=== PATIENT | female | born 1945 | race Caucasian/White ===

== ENCOUNTER → 2017-09-26 14:33 | Outpatient (CLI) | payer MEDICARE, SELFPAY ==
[2017-09-26 16:25] LABS: Absolute Lymphocyte Count 2.09 X10^3/ul (0.83-4.51); Absolute Neutrophil Count 3.3 X10^3/uL (2.0-7.7); Basophil# 0.03 X10^3/uL; Basophil% 0.5 % (0-1); Eosinophil# 0.07 X10^3/uL; Eosinophils% 1.2 % (0-5); Hematocrit 43.6 % (37-47); Hemoglobin 13.8 g/dl (12.0-15.0); Lymphocyte # 2.09 X10^3/ul (4.0); Lymphocyte % 35.6 % (19-41); Mean Corp Hgb Conc 31.7 g/gl (32-36); Mean Corpuscular Hgb 28.5 pg (27.0-32.0); Mean Corpuscular Volume 90.1 fL (81-99); Mean Platelet Vol. 10.2 fl (6.2-12.0); Monocyte# 0.37 X10^3/uL; Monocyte% 6.3 % (0-10); Neutrophil # 3.31 X10^3/uL (2.7-7.7); Neutrophil % 56.4 % (47-70); Platelet Count 276 K/mm3 (150-450); RBC Distribution Width CV 13.6 % (11.6-14.6); RBC Distribution Width SD 44.7 fl (35.1-43.9); Red Blood Count 4.84 M/mm3 (4.2-5.4); White Blood Count 5.9 K/mm3 (4.4-11.0)
[2017-09-26 16:27] LABS: POSITIVE COUNT NO; POSITIVE DIFFERENTIAL NO; POSITIVE MORPHOLOGY NO
[2017-09-26 16:45] LABS: ALB/GLOB Ratio 0.9 RATIO (0.9-2.4); AST(SGOT) 25 U/L (15-37); Alanine Aminotransfer ALT/SGPT 38 U/L (13-56); Albumin, Serum 3.5 g/dL (3.2-5.0); Alkaline Phosphatase 117 U/L (45-117); Anion Gap 8 (5-15); BUN 9 mg/dL (7-18); BUN/Creat Ratio 10.5 RATIO (10-20); Calcium,Total 9.1 mg/dL (8.5-10.1); Chloride 109 mmol/L (98-107); Creatinine, Serum 0.86 mg/dL (0.55-1.02); EST Glomerular Filtration Rate 69 mL/min (>60); Est Glom Filt Rate - Afr Amer 83 mL/min (>60); Globulin 3.9 g/dL (2.2-4.2); Glucose 87 mg/dL (74-106); Potassium 3.7 mmol/L (3.5-5.1); Protein, Total 7.4 g/dL (6.4-8.2); Sodium Level 142 mmol/L (136-145); Thyroid Stim Hormone (TSH) 0.27 uIU/mL (0.358-3.74)
[2017-09-26 16:49] LABS: Vitamin D,25 Hydroxy 13.9 ng/mL (29.95-100.01)
[2017-09-27 14:31] LABS: T3 Uptake 36 % (30-39)
[2017-09-28 10:11] LABS: Hep C Antibodies <0.1 s/co ratio (0.0-0.9)
== END ==
PROVIDERS: Family Provider Family Medicine Geriatric Medicine; PCP Family Medicine Geriatric Medicine; Visit Provider Family Medicine Geriatric Medicine
DX: E03.9 Hypothyroidism, unspecified (principal); E55.9 Vitamin D deficiency, unspecified; R53.83 Other fatigue; Z13.89 Encounter for screening for other disorder
CPT/HCPCS: 36415; 80053; 82306; 84439; 84443; 84479; 85025; 86803

== ENCOUNTER → 2017-12-20 11:38 | Outpatient (CLI) | payer MEDICARE, SELFPAY | PROVIDERS: Family Provider Family Medicine Geriatric Medicine; PCP Family Medicine Geriatric Medicine; Visit Provider Family Medicine Geriatric Medicine | DX: E05.90 Thyrotoxicosis, unspecified without thyrotoxic crisis or storm (principal) | CPT/HCPCS: 36415; 84443 ==

== ENCOUNTER → 2017-12-27 10:16 | Outpatient (CLI) | payer MEDICARE, SELFPAY ==
--- NOTE | 2017-12-27 10:19 | BI_ITS ---
MAMMOGRAPHY - BILATERAL SCREENING 3-D OLVIN SYNTHESIS REASON FOR EXAM: Female, 72 years old. Bilateral Screening 3-D tomosynthesis PERTINENT HISTORY: Asymptomatic. Right breast mole removal 30 years ago with scar. Left hemangioma, smooth. Family breast carcinoma, mother age 60 and sister age 40. TECHNIQUE: 2-D mammograms and 3-D Olvin synthesis of the breast (s) were performed. CAD was performed. COMPARISON: 08/31/2016 FINDINGS: The breast composition is composed of scattered fibroglandular density. Right CC view shows posterior third medial asymmetric density with ill-defined irregular margins. Right MLO view suggests heterogeneous asymmetric density posterior to middle third superiorly. Asymmetric densities are electronically circled in the right CC and MLO projections for which spot compression views are recommended with possible ultrasound as clinically indicated. Scattered benign appearing calcifications are again seen. No new suspicious microcalcification cluster, adenopathy, skin thickening or nipple retraction identified. BI/SCREENING MAMM (CAD), BILAT IMPRESSION: Incomplete mammogram, additional imaging recommended right breast as described. ASSESSMENT CATEGORY: BIRADS Category 0: Incomplete. Need additional imaging evaluation as above. A letter regarding these results will be sent to the patient by the facility within 30 days. FOLLOW UP RECOMMENDATION: Additional imaging recommended as above. (E) Negative mammographic results should not deter biopsy as a palpable lesion if present should be followed on clinical grounds and biopsy performed if clinically persistent for 3 months or increasing size. Approximately 10% of breast cancers are not detected by mammography. A normal mammogram should not delay biopsy of a clinically suspicious abnormality. Dense breast tissue mainstream neoplasm. Electronically Signed: Darinel Burrows, at 19:42 EDT Tel , Service support ,
--- NOTE | 2017-12-27 10:23 | BD_ITS ---
STUDY: DUAL ENERGY X-RAY ABSORPTIOMETRY / DXA REASON FOR EXAM: Female, 72 years old. Rule out osteoporosis TECHNIQUE: Bone Mineral Density (BMD) measurements of lumbar spine and bilateral hips were obtained. COMPARISON: None. FINDINGS: Lumbar Spine (L1-L4): g/cm2 (0.9) / T-score (-2.5) / Z-score (-0.8) Findings are suggestive of osteopenia with a moderate fracture risk. Left Femur Total: g/cm2 (0.62) / T-score (-3.1) / Z-score (-1.5) Left Femoral Neck: g/cm2 (0.6) / T-score (-3.1) / Z-score (-1.3) Right Femur Total: g/cm2 (0.6) / T-score (-3) / Z-score (-1.5) Right Femoral Neck: g/cm2 (0.6) / T-score (-3.2) / Z-score (-1.4) BD/Dexa Bone Density Study IMPRESSION: The patient is considered osteoporosis as outlined below according to World [employer] Organization (WHO) criteria with a high fracture risk. There has been no change of bone density since the previous examination. Reference Information: The T-score is the number of standard deviations above or below the standard which is normal for young adults at their peak bone mineral density. The World Health Organization (WHO) interprets the T-scores as follows: Above -1 Normal bone density Between -1 and -2.5 Osteopenia Equal to / or below -2.5 Osteoporosis As a practical clinical guideline, osteopenia may be graded as follows: Mild -1 through -1.5 Moderate -1.6 through -2.0 Severe -2.1 through -2.4 The Z-score is the number of standard deviations above or below age-matched controls. A Z-score of less than -1.5 would be considered abnormal. References: 1. NIH Osteoporosis and Related Bone Diseases http://www.osteo.org 2. International Society for Clinical Densitometry http://www.iscd.org 3. National Osteoporosis Foundation http://www.nof.org Electronically Signed: Coy Griggs DO at 10:13 EDT Tel , Service support ,
== END ==
PROVIDERS: Family Provider Family Medicine Geriatric Medicine; PCP Family Medicine Geriatric Medicine; Visit Provider Family Medicine Geriatric Medicine
DX: Z12.31 Encounter for screening mammogram for malignant neoplasm of breast (principal); Z78.0 Asymptomatic menopausal state
CPT/HCPCS: 77063; 77067; 77080

== ENCOUNTER → 2018-01-02 09:30 | Outpatient (CLI) | payer MEDICARE, SELFPAY ==
--- NOTE | 2018-01-02 09:33 | BI_ITS ---
MAMMOGRAPHY - UNILATERAL DIAGNOSTIC: RIGHT BREAST REASON FOR EXAM: Female, 72 years old. Abnormal screening mammogram. PERTINENT HISTORY: Sister with breast cancer. Mother with breast cancer. TECHNIQUE: Compression spot views of the right breast in the MLO and craniocaudad views were obtained. CAD: Full Field Digital Mammography with Computer Added Detection was performed. COMPARISON: Comparison is made with prior mammogram dated December 27, 2017. FINDINGS: Breast Composition: There are scattered areas of fibroglandular density. There are no dominant masses or suspicious calcifications. No abnormality is seen. No other significant abnormalities are identified. BI/DIAG MAMM W/CAD, UNILAT IMPRESSION: Stable unilateral diagnostic mammogram. One year follow-up mammogram recommended. (A) ASSESSMENT CATEGORY: BIRADS Category 2: Benign. A letter regarding these results will be sent to the patient by the facility within 30 days. Approximately 10% of breast cancers are not detected by mammography. A normal mammogram should not delay biopsy of a clinically suspicious abnormality. Electronically Signed: John Winn MD at 15:34 EDT Tel [phone], Service support ,
== END ==
PROVIDERS: Family Provider Family Medicine Geriatric Medicine; PCP Family Medicine Geriatric Medicine; Visit Provider Family Medicine Geriatric Medicine
DX: R92.8 Other abnormal and inconclusive findings on diagnostic imaging of breast (principal); Z80.3 Family history of malignant neoplasm of breast
CPT/HCPCS: 77065

== ENCOUNTER → 2018-02-13 11:30 | Outpatient (CLI) | payer MEDICARE, SELFPAY ==
[2018-02-13 13:24] LABS: Thyroid Stim Hormone (TSH) 2.36 uIU/mL (0.358-3.74)
== END ==
PROVIDERS: Family Provider Family Medicine Geriatric Medicine; PCP Family Medicine Geriatric Medicine; Visit Provider Family Medicine Geriatric Medicine
DX: E05.90 Thyrotoxicosis, unspecified without thyrotoxic crisis or storm (principal)
CPT/HCPCS: 36415; 84443

== ENCOUNTER → 2018-04-12 10:32 | Outpatient (CLI) | payer MEDICARE, SELFPAY ==
[2018-04-12 13:04] LABS: Thyroid Stim Hormone (TSH) 0.59 uIU/mL (0.358-3.74)
--- OUTSIDE RECORDS SUMMARY | 2018-06-14 07:51 | XMS RPT_ITS ---
:1945 Author Organization [facility] Care Team Providers Name Role Phone Mega, Lucio Chi Attending Unavailable Mega, Lucio Chi Primary Care Unavailable Mega, Lucio Chi Attending Unavailable Mega, Lucio Chi Primary Care Unavailable Mega, Lucio Chi Attending Unavailable Mega, Lucio Chi Primary Care Unavailable Mega, Lucio Chi Attending Unavailable Mega, Lucio Chi Primary Care Unavailable Mega, Lucio Chi Attending Unavailable Mega, Lucio Chi Primary Care Unavailable Mega, Lucio Chi Attending Unavailable Mega, Lucio Chi Primary Care Unavailable PROBLEMS PROBLEMS DATE TYPE CONDITION / CODE ATTENDING STATUS SOURCE 02/13/2018 Unknown E03.9 - Mega, Lucio Chi Active [place] Hypothyroidism, Community unspecified / Hospital E03.9(ICD-10) Repository 12/27/2017 Unknown Z12.31 - Encounter Mega, Lucio Chi Active [place] for screening Community mammogram for Hospital malignant neoplasm Repository of breast / Z12.31(ICD-10) 12/27/2017 Unknown N95.9 - Unspecified Mega, Lucio Chi Active [place] menopausal and Community perimenopausal Hospital disorder / Repository N95.9(ICD-10) 12/20/2017 Unknown E05.90 - Mega, Lucio Chi Active [place] Thyrotoxicosis, Community unspecified without Hospital thyrotoxic crisis or Repository storm / E05.90(ICD-10) PROCEDURES PROCEDURES No Procedure Records FoundRESULTS RESULTS THYROID STIM HORMONE Collected: 04/12/2018 Status: F Source: [place] ([place]) 10:[place] [facility] [place] CODE TESTS RESULT OUT OF RANGE REFERENCE UNITS LAB L501.9520 0.358-3.74 uIU/mL Normal TSH 0.59 Performed By: #### L501.9520 #### [place] [facility] [address] [place], [address] PROGRESS Observed: 03/24/2018 Status: COMPLETED Source: [place] 3:08 PM [facility] REPOSITORY HNO ID: [id number] Author: Lanette Callejas) [place] Service: (none) Author Type: Physician Campus Coordinator Type: Progress Notes Filed: 03/24/2018 3:31 PM Note Text: Subjective HPI HPI Nicole Huggins is a 72 year old female who presents today for CC of chest congestion, cough, and PND x >1wk. Notes that she had fevers and body aches initially. Has taken mucinex which has helped to break up the cough somewhat. I just still feel sick. BP 136/84 Pulse 78 Temp 36.8 ?C (98.2 ?F) (Left Tympanic) Resp 16 Wt 72.4 kg (159 lb 9.6 oz) SpO2 95% ALLERGIES Allergen Reactions - Seasonal Allergies Other: See Comments Sneeze, cough, watey eyes There is no problem list on file for this patient. No family history on file. Social History Marital status: Spouse name: Years of education: Number of children: Social History Main Topics Smoking status: Never Smoker Smokeless tobacco: Never Used Review of Systems Constitutional: Positive for chills and malaise/fatigue. Negative for fever. HENT: Positive for ear pain (Pain moreso behind ears), sinus pain and sore throat. Negative for congestion. Respiratory: Positive for cough and sputum production (Greenish during the AM, yellowish by PM). Negative for shortness of breath and wheezing. Cardiovascular: Negative for chest pain. Neurological: Negative for headaches. Objective Physical Exam Constitutional: She is oriented to person, place, and time and well-developed, well-nourished, and in no distress. Vital signs are normal. HENT: Head: Normocephalic. Right Ear: Tympanic membrane, external ear and ear canal normal. No drainage. Tympanic membrane is not perforated, not erythematous, not retracted and not bulging. No middle ear effusion. Left Ear: Ear canal normal. No drainage. Tympanic membrane is not perforated, not erythematous, not retracted and not bulging. No middle ear effusion. Nose: No rhinorrhea. Right sinus exhibits no maxillary sinus tenderness and no frontal sinus tenderness. Left sinus exhibits no maxillary sinus tenderness and no frontal sinus tenderness. Mouth/Throat: Uvula is midline and mucous membranes are normal. No oropharyngeal exudate, posterior oropharyngeal edema, posterior oropharyngeal erythema or tonsillar abscesses. Purulent PND noted posteriorly Eyes: Conjunctivae and lids are normal. Cardiovascular: Normal rate, regular rhythm, S1 normal and S2 normal. Exam reveals no friction rub. Pulmonary/Chest: Effort normal and breath sounds normal. She has no wheezes. She has no rhonchi. She has no rales. Lymphadenopathy: Head (right side): No submental, no submandibular, no tonsillar, no preauricular, no posterior auricular and no occipital adenopathy present. Head (left side): No submental, no submandibular, no tonsillar, no preauricular, no posterior auricular and no occipital adenopathy present. Right cervical: No superficial cervical and no posterior cervical adenopathy present. Left cervical: No superficial cervical and no posterior cervical adenopathy present. Neurological: She is oriented to person, place, and time. ASSESSMENT/PLAN: 1. Acute sinusitis, recurrence not specified, unspecified location - ICD9: 461.9, ICD10: J01.90 (primary diagnosis) - Rx for Augmentin; Discussed medication indications, proper use, and potential adverse effects. All questions and concerns addressed to patient satisfaction. - Supportive care with plenty of fluids, rest, and analgesia prn. - Follow up in one week if symptoms persist or worsen. - AMOXICILLIN 875 MG-POTASSIUM CLAVULANATE 125 MG TABLET - CODEINE 10 MG-GUAIFENESIN 100 MG/5 ML ORAL LIQUID 2. Cough - ICD9: 786.2, ICD10: R05 CCM w/ mucinex during the day; rx for cheratussin to use at night - CODEINE 10 MG-GUAIFENESIN 100 MG/5 ML ORAL LIQUID Pt advised to see PCP if symptoms persist or progress. Reviewed red flags with patient and when to seek care sooner. The patient indicates understanding of these issues and agrees with the plan. Lanette Muhammad PA-C CNOV Observed: 03/24/2018 Status: COMPLETED Source: [place] 3:[address] [facility] REPOSITORY Office Visit (WSTR) NICOLE HUGGINS ([id number]) 1945 F Date Time Provider Department 03/24/18 3:00 PM LANETTE MUHAMMAD) WSTR During your visit today, we recorded the following information about you: Temperature Pulse Respiration Blood pressure 98.2 degrees 78/minute 16/minute 136/84 Weight 72.4 kg Lanette Muhammad PA-C 03/24/2018 3:31 PM Signed Subjective HPI HPI Nicole Huggins is a 72 year old female who presents today for CC of chest congestion, cough, and PND x >1wk. Notes that she had fevers and body aches initially. Has taken mucinex which has helped to break up the cough somewhat. I just still feel sick. BP 136/84 Pulse 78 Temp 36.8 ?C (98.2 ?F) (Left Tympanic) Resp 16 Wt 72.4 kg (159 lb 9.6 oz) SpO2 95% ALLERGIES Allergen Reactions - Seasonal Allergies Other: See Comments Sneeze, cough, watey eyes There is no problem list on file for this patient. No family history on file. Social History Marital status: Spouse name: Years of education: Number of children: Social History Main Topics Smoking status: Never Smoker Smokeless tobacco: Never Used Review of Systems Constitutional: Positive for chills and malaise/fatigue. Negative for fever. HENT: Positive for ear pain (Pain moreso behind ears), sinus pain and sore throat. Negative for congestion. Respiratory: Positive for cough and sputum production (Greenish during the AM, yellowish by PM). Negative for shortness of breath and wheezing. Cardiovascular: Negative for chest pain. Neurological: Negative for headaches. Objective Physical Exam Constitutional: She is oriented to person, place, and time and well-developed, well-nourished, and in no distress. Vital signs are normal. HENT: Head: Normocephalic. Right Ear: Tympanic membrane, external ear and ear canal normal. No drainage. Tympanic membrane is not perforated, not erythematous, not retracted and not bulging. No middle ear effusion. Left Ear: Ear canal normal. No drainage. Tympanic membrane is not perforated, not erythematous, not retracted and not bulging. No middle ear effusion. Nose: No rhinorrhea. Right sinus exhibits no maxillary sinus tenderness and no frontal sinus tenderness. Left sinus exhibits no maxillary sinus tenderness and no frontal sinus tenderness. Mouth/Throat: Uvula is midline and mucous membranes are normal. No oropharyngeal exudate, posterior oropharyngeal edema, posterior oropharyngeal erythema or tonsillar abscesses. Purulent PND noted posteriorly Eyes: Conjunctivae and lids are normal. Cardiovascular: Normal rate, regular rhythm, S1 normal and S2 normal. Exam reveals no friction rub. Pulmonary/Chest: Effort normal and breath sounds normal. She has no wheezes. She has no rhonchi. She has no rales. Lymphadenopathy: Head (right side): No submental, no submandibular, no tonsillar, no preauricular, no posterior auricular and no occipital adenopathy present. Head (left side): No submental, no submandibular, no tonsillar, no preauricular, no posterior auricular and no occipital adenopathy present. Right cervical: No superficial cervical and no posterior cervical adenopathy present. Left cervical: No superficial cervical and no posterior cervical adenopathy present. Neurological: She is oriented to person, place, and time. ASSESSMENT/PLAN: 1. Acute sinusitis, recurrence not specified, unspecified location - ICD9: 461.9, ICD10: J01.90 (primary diagnosis) - Rx for Augmentin; Discussed medication indications, proper use, and potential adverse effects. All questions and concerns addressed to patient satisfaction. - Supportive care with plenty of fluids, rest, and analgesia prn. - Follow up in one week if symptoms persist or worsen. - AMOXICILLIN 875 MG-POTASSIUM CLAVULANATE 125 MG TABLET - CODEINE 10 MG-GUAIFENESIN 100 MG/5 ML ORAL LIQUID 2. Cough - ICD9: 786.2, ICD10: R05 CCM w/ mucinex during the day; rx for cheratussin to use at night - CODEINE 10 MG-GUAIFENESIN 100 MG/5 ML ORAL LIQUID Pt advised to see PCP if symptoms persist or progress. Reviewed red flags with patient and when to seek care sooner. The patient indicates understanding of these issues and agrees with the plan. Lanette Muhammad PA-C Referring Provider: SELF [200] Allergies As of Date: 03/24/2018 Noted Allergy Reaction SEASONAL ALLERGIES 03/24/2018 14 - Other: See Comments Comments: Sneeze, cough, watey eyes Date Reviewed: Never Reviewed Reason for Visit: Sinusitis [127] Cmt: x 2 weeks Primary Visit Diagnosis:Acute sinusitis, recurrence not specified, unspecified location [J01.90] Other Visit Diagnosis:Cough [R05] Order(s):amoxicillin-clavulanic acid (AUGMENTIN) 875-125 mg per tabletTake 1 tablet by mouth twice daily for 10 days.Disp: 20 tabletRfl: 0 codeine-guaiFENesin (CHERATUSSIN AC) 10-100 mg/5 mL syrupTake 10 mL by mouth three times daily as needed for up to 5 days.Disp: 150 mLRfl: 0 Prescriptions as of 03/24/2018 Sig: LEVOTHYROXINE 75 MCG CAPSULE Take 75 mcg by mouth once darron* AMOXICILLIN 875 MG-POTASSIUM * Take 1 tablet by mouth twice * CODEINE 10 MG-GUAIFENESIN 100* Take 10 mL by mouth three karine* Problem List As Of Date: 03/24/2018 (None) Prescriptions ordered this encounter Disp Refills Start End AMOXICILLIN 875 MG-POTASSIUM CLAVULA* 20 t* 0 03/24/2018 04/03/2018 Class: Print RX Route: ORAL Sig: Take 1 tablet by mouth twice daily for 10 days. CODEINE 10 MG-GUAIFENESIN 100 MG/5 M* 150 * 0 03/24/2018 03/29/2018 Class: Print RX Route: ORAL Sig: Take 10 mL by mouth three times daily as needed for up to 5 days. Encounter Status:Closed by LANETTE MUHAMMAD on 03/24/18 THYROID STIM HORMONE Collected: 02/13/2018 Status: F Source: [place] ([place]) 11:32 AM [facility] [place] CODE TESTS RESULT OUT OF RANGE REFERENCE UNITS LAB L501.9520 0.358-3.74 uIU/mL Normal TSH 2.36 Performed By: #### L501.9520 #### [facility] [address] [place], [address] DIAG MAMM W/CAD, Observed: 01/02/2018 Status: F Source: [place] 9:34 AM [facility] [place] [facility] Imaging Services [address] [place] [address] DIAG MAMM W/CAD, UNILAT MR#: [id number] Acct: [id number] Name: NICOLE HUGGINS Rep #: [id number] : 1945 F 72 From: John Winn MD PCP: Lucio Ayoub MD, Chi Status: REG CLI Study: DIAG MAMM W/CAD, UNILAT Date of Exam: 01/02/18 Exam# [id number] Ordering Dr: Lucio Ayoub MD MAMMOGRAPHY - UNILATERAL DIAGNOSTIC: RIGHT BREAST REASON FOR EXAM: Female, 72 years old. Abnormal screening mammogram. PERTINENT HISTORY: Sister with breast cancer. Mother with breast cancer. TECHNIQUE: Compression spot views of the right breast in the MLO and craniocaudad views were obtained. CAD: Full Field Digital Mammography with Computer Added Detection was performed. COMPARISON: Comparison is made with prior mammogram dated December 27, 2017. FINDINGS: Breast Composition: There are scattered areas of fibroglandular density. There are no dominant masses or suspicious calcifications. No abnormality is seen. No other significant abnormalities are identified. BI/DIAG MAMM W/CAD, UNILAT IMPRESSION: Stable unilateral diagnostic mammogram. One year follow-up mammogram recommended. (A) ASSESSMENT CATEGORY: BIRADS Category 2: Benign. A letter regarding these results will be sent to the patient by the facility within 30 days. Approximately 10% of breast cancers are not detected by mammography. A normal mammogram should not delay biopsy of a clinically suspicious abnormality. Electronically Signed: John Winn MD at 15:34 EDT Tel [phone], Service support , CC: Lucio Ayoub MD Cigar Packing Examiner: Signed SCREENING MAMM (CAD), Observed: 12/27/2017 Status: F Source: [place] 10:20 AM [facility] [place] [facility] Imaging Services [address] [place] [address] SCREENING MAMM (CAD), BILAT MR#: [id number] Acct: [id number] Name: NICOLE HUGGINS Rep #: [id number] : 1945 F 72 From: Darinel Burrows MD PCP: Lucio Ayoub MD, Chi Status: REG CLI Study: SCREENING MAMM (CAD), BILAT Date of Exam: 12/27/17 Exam# [id number] Ordering Dr: Lucio Ayoub MD MAMMOGRAPHY - BILATERAL SCREENING 3-D CRISTIAN SYNTHESIS REASON FOR EXAM: Female, 72 years old. Bilateral Screening 3-D tomosynthesis PERTINENT HISTORY: Asymptomatic. Right breast mole removal 30 years ago with scar. Left hemangioma, smooth. Family breast carcinoma, mother age 60 and sister age 40. TECHNIQUE: 2-D mammograms and 3-D Cristian synthesis of the breast (s) were performed. CAD was performed. COMPARISON: 08/31/2016 FINDINGS: The breast composition is composed of scattered fibroglandular density. Right CC view shows posterior third medial asymmetric density with ill-defined irregular margins. Right MLO view suggests heterogeneous asymmetric density posterior to middle third superiorly. Asymmetric densities are electronically circled in the right CC and MLO projections for which spot compression views are recommended with possible ultrasound as clinically indicated. Scattered benign appearing calcifications are again seen. No new suspicious microcalcification cluster, adenopathy, skin thickening or nipple retraction identified. BI/SCREENING MAMM (CAD), BILAT IMPRESSION: Incomplete mammogram, additional imaging recommended right breast as described. ASSESSMENT CATEGORY: BIRADS Category 0: Incomplete. Need additional imaging evaluation as above. A letter regarding these results will be sent to the patient by the facility within 30 days. FOLLOW UP RECOMMENDATION: Additional imaging recommended as above. (E) Negative mammographic results should not deter biopsy as a palpable lesion if present should be followed on clinical grounds and biopsy performed if clinically persistent for 3 months or increasing size. Approximately 10% of breast cancers are not detected by mammography. A normal mammogram should not delay biopsy of a clinically suspicious abnormality. Dense breast tissue mainstream neoplasm. Electronically Signed: Darinel Burrows, at 19:42 EDT Tel , Service support , CC: Lucio Ayoub MD Cigar Packing Examiner: Signed DEXA BONE DENSITY Observed: 12/27/2017 Status: F Source: [place] STUDY 10:20 AM [facility] [place] [facility] Imaging Services [address] [place] [address] Dexa Bone Density Study MR#: [id number] Acct: [id number] Name: NICOLE HUGGINS Rep #: [id number] : 1945 F 72 From: Coy Griggs DO PCP: Lucio Ayoub MD, Chi Status: REG CL Study: Dexa Bone Density Study Date of Exam: 12/27/17 Exam# [id number] Ordering Dr: Lucio Ayoub MD STUDY: DUAL ENERGY X-RAY ABSORPTIOMETRY / DXA REASON FOR EXAM: Female, 72 years old. Rule out osteoporosis TECHNIQUE: Bone Mineral Density (BMD) measurements of lumbar spine and bilateral hips were obtained. COMPARISON: None. FINDINGS: Lumbar Spine (L1-L4): g/cm2 (0.9) / T-score (-2.5) / Z-score (-0.8) Findings are suggestive of osteopenia with a moderate fracture risk. Left Femur Total: g/cm2 (0.62) / T-score (-3.1) / Z-score (-1.5) Left Femoral Neck: g/cm2 (0.6) / T-score (-3.1) / Z-score (-1.3) Right Femur Total: g/cm2 (0.6) / T-score (-3) / Z-score (-1.5) Right Femoral Neck: g/cm2 (0.6) / T-score (-3.2) / Z- score (-1.4) BD/Dexa Bone Density Study IMPRESSION: The patient is considered osteoporosis as outlined below according to World [employer] Organization (WHO) criteria with a high fracture risk. There has been no change of bone density since the previous examination. Reference Information: The T-score is the number of standard deviations above or below the standard which is normal for young adults at their peak bone mineral density. The World Health Organization (WHO) interprets the T-scores as follows: Above -1 Normal bone density Between -1 and -2.5 Osteopenia Equal to / or below -2.5 Osteoporosis As a practical clinical guideline, osteopenia may be graded as follows: Mild -1 through -1.5 Moderate -1.6 through -2.0 Severe -2.1 through -2.4 The Z-score is the number of standard deviations above or below age-matched controls. A Z-score of less than -1.5 would be considered abnormal. References: 1. NIH Osteoporosis and Related Bone Diseases http://www.osteo.org 2. International Society for Clinical Densitometry http://www.iscd.org 3. National Osteoporosis Foundation http://www.nof.org Electronically Signed: Coy Griggs DO at 10:13 EDT Tel , Service support , CC: Lucio Ayoub MD Cigar Packing Examiner: Signed THYROID STIM HORMONE Collected: 12/20/2017 Status: F Source: [place] (TSH) 11:39 AM [facility] [place] TYPE CODE TESTS RESULT OUT OF RANGE REFERENCE UNITS LAB L501.9520 0.358-3.74 uIU/mL High TSH 12.40 Performed By: #### L501.9520 #### [facility] [place], [address] CBC W/DIFF, AUTOMATED Collected: 09/26/2017 Status: F Source: [place] 2:34 PM [facility] [place] TYPE CODE TESTS RESULT OUT OF RANGE REFERENCE UNITS LAB L100.1000 4.4-11.0 K/mm3 Normal WBC 5.9 LAB L100.1200 4.2-5.4 M/mm3 Normal RBC 4.84 LAB L100.1300 12.0-15.0 g/dl Normal HGB 13.8 LAB L100.1400 37-47 % Normal HCT 43.6 LAB L100.1500 81-99 fL Normal MCV 90.1 LAB L100.1600 27.0-32.0 pg Normal MCH 28.5 LAB L100.1700 32-36 g/gl Low MCHC 31.7 LAB L100.1810 11.6-14.6 % Normal RDW CV 13.6 LAB L100.1820 35.1-43.9 fl High RDW SD 44.7 LAB L100.1900 150-450 K/mm3 Normal PLT 276 LAB L100.2000 6.2-12.0 fl Normal MPV 10.2 LAB L100.2100 47-70 % Normal NEUT% 56.4 LAB L100.2200 19-41 % Normal LY% 35.6 LAB L100.2300 0-10 % Normal MONO% 6.3 LAB L100.2400 0-5 % Normal EO% 1.2 LAB L100.2500 0-1 % Normal BASO% 0.5 LAB L100.2550 0.0-0.9 % Normal IM GRAN % 0.000 Result Comment: IG% - Immature Granulocytes (promyelocytes, myelocytes and metamyelocytes) > 1% indicates that a LEFT SHIFT is Present. LAB L100.2620 2.0-7.7 X10 3/uL Normal Absolute Neut 3.3 LAB L100.2720 0.83-4.51 X10 3/ul Normal Absolute Lymph 2.09 Performed By: #### L100.0100 #### [facility] [address] [place], [place], [address] COMPREHENSIVE METABOLIC Collected: 09/26/2017 Status: F Source: [place] CHANG 2:34 PM [facility] [place] TYPE CODE TESTS RESULT OUT OF RANGE REFERENCE UNITS LAB L501.0100 74-106 mg/dL Normal GLU 87 Result Comment: Please note revised GLUCOSE reference range effective 2017. LAB L501.1000 7-18 mg/dL Normal BUN 9 LAB L501.1100 0.55-1.02 mg/dL Normal CREAT,SERUM 0.86 Result Comment: The validity of the calculated GFR AND GFRAA in patients over 70 years has not been determined. Clinical correlation is essential. LAB L501.1110 >60 mL/min Normal EST GFR 69 Result Comment: Non- GFR Calc LAB L501.1115 >60 mL/min Normal EST GFR - AA 83 Result Comment: GFR Calc LAB L501.1300 10-20 RATIO Normal BUN/CRE 10.5 LAB L501.1500 6.4-8.2 g/dL T Normal PROT 7.4 LAB L501.1800 3.2-5.0 g/dL Normal ALB 3.5 LAB L501.1950 2.2-4.2 g/dL Normal GLOB 3.9 LAB L501.2000 0.9-2.4 RATIO Normal A/G 0.9 LAB L501.2200 8.5-10.1 mg/dL CA Normal 9.1 LAB L501.4100 15-37 U/L Normal AST 25 Result Comment: Slight Hemolysis, Result may be falsely increased. LAB L501.4305 45-117 U/L Normal ALK P 117 LAB L501.4405 13-56 U/L Normal ALT 38 LAB L501.4600 0.20-1.00 mg/dL Normal T BILI 0.60 LAB L501.5300 136-145 mmol/L Normal NA 142 LAB L501.5600 3.5-5.1 mmol/L Normal K 3.7 Result Comment: Slight Hemolysis, Result may be falsely increased. LAB L501.5900 98-107 mmol/L High CL 109 LAB L501.6100 21.0-32.0 mmol/L Normal CO2 25.0 LAB L501.6200 5-15 Normal 8 GAP Performed By: #### L500.4050, L501.9520, L501.9195, L506.0400 #### [facility] [address] [place], [address] THYROID STIM HORMONE Collected: 09/26/2017 Status: F Source: [place] (TSH) 2:34 PM [facility] [place] TYPE CODE TESTS RESULT OUT OF RANGE REFERENCE UNITS LAB L501.9520 0.358-3.74 uIU/mL Low TSH 0.27 Performed By: #### L500.4050, L501.9520, L501.9195, L506.0400 #### [facility] [place], [address] T3 UPTAKE Collected: 09/26/2017 Status: F Source: [place] 2:34 PM [facility] [place] TYPE CODE TESTS RESULT OUT OF RANGE REFERENCE UNITS LAB L501.9410 1.4-4.5 Test Normal T7 (FTI) not performed LAB L501.9210 30-39 % 36 Normal T3 UPTAKE Performed By: #### L500.4050, L501.9520, L501.9195, L506.0400 #### [facility] [address] [place], [address] T4 FREE DIRECT Collected: 09/26/2017 Status: F Source: [place] 2:34 PM [facility] [place] TYPE CODE TESTS RESULT OUT OF REFERENCE UNITS RANGE LAB L506.0400 0.76-1.46 ng/dL High T4 FREE 1.60 DIRECT Performed By: #### L500.4050, L501.9520, L501.9195, L506.0400 #### [facility] [address] [facility] [place], [address] VITAMIN D,25 HYDROXY Collected: 09/26/2017 Status: F Source: [place] 2:34 PM [facility] [place] TYPE CODE TESTS RESULT OUT OF REFERENCE UNITS RANGE LAB L506.1000 29.95-100.01 ng/mL Low Vitamin D 13.9 25-OH Result Comment: Vitamin D 25(OH) Status Range Deficiency <20 ng/mL (50nmol/L) Insuffciency 20 - 30 ng/mL (50 - 75 nmol/L) Sufficiency 30 - 100 ng/mL (75 - 250 nmol/L) Toxicity >100 ng/mL (>250 nmol/L) Performed By: #### L506.1000 #### [facility] [place], [address] HEPATITIS C ANTIBODIES Collected: 09/26/2017 Status: F Source: [place] 2:34 PM [facility] [place] TYPE CODE TESTS RESULT OUT OF RANGE REFERENCE UNITS LAB L3100.0650 0.0-0.9 s/co ratio Normal HEP C AB <0.1 Result Comment: Negative: < 0.8 Indeterminate: 0.8 - 0.9 Positive: > 0.9 The CDC recommends that a positive HCV antibody result be followed up with a HCV Nucleic Acid Amplification test (017502). Performed at: [facility] [id number] [place] Supervisor: Adama Florence PhD, Phone: [phone] Performed By: #### L3100.0625 #### [facility] (refer to report for specific site) refer to report for address and phone number ALLERGIES ALLERGIES DATE TYPE / CODE NAME / CODE REACTION SEVERITY SOURCE 04/12/2016 Drug No Known Unknown [facility] Allergy/4160 Allergies/F00 Hospital [address](SNOMED [id number](RXNOR Repository CT) M) ENCOUNTERS ENCOUNTERS ADMIT/DISCHARGE ACCOUNT ADMITTING ENCOUNTER LOCATION SOURCE NUMBER CLASS 04/12/2018 [id number] [facility] ing:POLAB3 Repository 03/24/2018/03/27/19 [id number] Ambulatory [address] Repository 02/13/2018 [id number] [facility] ing:POLAB3 Repository 01/02/2018 [id number] [facility] ing:OPUS Repository 12/27/2017 [id number] [facility] ing:OPBD Repository 12/20/2017 [id number] Ambulatory [facility] ing:POLAB3 Repository 09/26/2017 [id number] [facility] ing:POLAB3 Repository PAYERS PAYERS ENCOUNTER GUARANTOR PAYER SUBSCRIBER SOURCE 04/12/2018 Nicole Silverman Primary Nicole Manzo [id number] [facility] [address] MEDICAREPolicy [id number] [place] [address], Number: Repository [place] [address]Dap: [id number] Date:8570-33-00YC BOX (HP) [address] [place] [id number]: 04/12/2018 Secondary NOT GIVENUNK Anais Insurance:SELF PAY [facility] Number: Effective Repository Date:2018-02-28 02/13/2018 Nicole Silverman Primary Nicole Silverman Anais [id number] Insurance:[facility] ShafferDOB: Community [address] MEDICAREPolicy [id number] [place] [address], Number: Repository [place] [address]Qlf: [id number] Date:1119-54-25GF BOX (HP) [address] [place] [id number]: 02/13/2018 Secondary NOT GIVENUNK [place] Insurance:SELF PAY [facility] Number: Effective Repository Date:2018-02-13 01/02/2018 Nicole Silverman Primary Nicole Manzo [id number] Insurance:[facility] [employer] ShafferDOB: Community [address] MEDICAREPolicy [id number] [place] [address], Number: Repository [place] [address]Mpv: [id number] Date:3009-29-31TK [address]OX (HP) [address] [place] [id number]: 01/02/2018 Secondary NOT GIVENUNK [place] Insurance:SELF PAY [facility] Number: Effective Repository Date:2017-12-30 12/27/2017 Nicole Silverman Primary Nicole Silverman Anais [id number] Insurance:[facility] ShafferDOB: Community [address] MEDICAREPolicy [id number] [address] [place] [address], Number: Repository [place] [address]Oqn: [id number] Date:8591-69-73UN BOX (HP) [address] [place] [id number]: 12/27/2017 Secondary NOT GIVENUNK [place] Insurance:SELF PAY [facility] Number: Effective Repository Date:2017-09-27 12/20/2017 Nicole Silverman Primary Nicole Silverman Anais [id number] Insurance:[facility] ShafferDOB: Community [address] MEDICAREPolicy [id number] [address] [place] [address], Number: Repository [place] [address]Qwg: [id number] Date:4596-75-08HZ BOX (HP) [address] [place] [id number]: 12/20/2017 Secondary NOT GIVENUNK Anais Insurance:SELF PAY [facility] Number: Effective Repository Date:2017-11-08 09/26/2017 Nicole Silverman Primary Nicole Silverman Anais [id number] Insurance:[facility] ShafferDOB: Community [address] MEDICAREPolicy [id number] [address] [place] [address], Number: Repository [place] [address]Dba: [id number] Date:0588-63-46BY BOX (HP) [address] [place] [id number]: 09/26/2017 Secondary NOT GIVENUNK Anais Insurance:SELF PAY [facility] Number: Effective Repository Date:2017-09-26
== END ==
PROVIDERS: Family Provider Family Medicine Geriatric Medicine; PCP Family Medicine Geriatric Medicine; Visit Provider Family Medicine Geriatric Medicine
DX: E03.9 Hypothyroidism, unspecified (principal)
CPT/HCPCS: 36415; 84443

== ENCOUNTER → 2018-11-08 15:50 | Outpatient (CLI) | payer MEDICARE, SELFPAY ==
[2018-11-08 16:44] LABS: Absolute Lymphocyte Count 1.95 X10^3/uL (0.83-4.51); Absolute Neutrophil Count 2.5 X10^3/uL (2.0-7.7); Basophil# 0.04 X10^3/uL; Basophil% 0.8 % (0-1); Eosinophil# 0.22 X10^3/uL; Eosinophils% 4.3 % (0-5); Hematocrit 39.9 % (37-47); Hemoglobin 12.9 g/dL (12.0-15.0); Lymphocyte # 1.95 X10^3/ul (4.0); Lymphocyte % 37.7 % (19-41); Mean Corp Hgb Conc 32.3 g/dL (32-36); Mean Corpuscular Hgb 29.1 pg (27.0-32.0); Mean Corpuscular Volume 90.1 fL (81-99); Mean Platelet Vol. 10.2 fl (6.2-12.0); Monocyte# 0.46 X10^3/uL; Monocyte% 8.9 % (0-10); NRBC Flagged by Analyzer 0 % (0-5); Neutrophil # 2.49 X10^3/uL (2.7-7.7); Neutrophil % 48.1 % (47-70); Platelet Count 242 K/mm3 (150-450); RBC Distribution Width SD 42.5 fl (35.1-43.9); Red Blood Count 4.43 M/mm3 (4.2-5.4); White Blood Count 5.2 K/mm3 (4.4-11.0)
[2018-11-08 16:52] LABS: Vitamin D,25 Hydroxy 13.6 ng/mL (29.95-100.01)
[2018-11-08 16:55] LABS: ALB/GLOB Ratio 0.9 RATIO (0.9-2.4); AST(SGOT) 19 U/L (15-37); Alanine Aminotransfer ALT/SGPT 44 U/L (13-56); Albumin, Serum 3.3 g/dL (3.2-5.0); Alkaline Phosphatase 161 U/L (45-117); Anion Gap 6 (5-15); BUN 12 mg/dL (7-18); BUN/Creat Ratio 15.6 RATIO (10-20); Calcium,Total 8.7 mg/dL (8.5-10.1); Chloride 111 mmol/L (98-107); Creatinine, Serum 0.77 mg/dL (0.55-1.02); EST Glomerular Filtration Rate 78 mL/min (>60); Est Glom Filt Rate - Afr Amer 95 mL/min (>60); Globulin 3.5 g/dL (2.2-4.2); Glucose 119 mg/dL (74-106); Potassium 3.5 mmol/L (3.5-5.1); Protein, Total 6.8 g/dL (6.4-8.2); Sodium Level 141 mmol/L (136-145); Thyroid Stim Hormone (TSH) 0.37 uIU/mL (0.358-3.74)
== END ==
PROVIDERS: Family Provider Family Medicine Geriatric Medicine; PCP Family Medicine Geriatric Medicine; Visit Provider Family Medicine Geriatric Medicine
DX: R53.83 Other fatigue (principal); E55.9 Vitamin D deficiency, unspecified
CPT/HCPCS: 36415; 80053; 82306; 84443; 85025

== ENCOUNTER 2019-12-05 12:45 | Outpatient (RCR) | payer MEDICARE, SELFPAY | END 2019-12-19 23:59 | LOC: EMPH 12:45 | PROVIDERS: PCP Family Medicine Geriatric Medicine; Visit Provider Family Medicine Geriatric Medicine | DX: Z11.59 Encounter for screening for other viral diseases (principal) | CPT/HCPCS: 87635; U0003 ==

== ENCOUNTER → 2019-12-10 11:50 | Outpatient (CLI) | payer MEDICARE, SELFPAY ==
[2019-12-10 12:42] LABS: Absolute Lymphocyte Count 1.63 X10^3/uL (0.83-4.51); Absolute Neutrophil Count 2.7 X10^3/uL (2.0-7.7); Basophil# 0.04 X10^3/uL; Basophil% 0.8 % (0-1); Eosinophil# 0.14 X10^3/uL; Eosinophils% 2.9 % (0-5); Hematocrit 43.3 % (37-47); Lymphocyte # 1.63 X10^3/ul (4.0); Lymphocyte % 33.9 % (19-41); Mean Corp Hgb Conc 32.3 g/dL (32-36); Mean Corpuscular Hgb 28.6 pg (27.0-32.0); Mean Corpuscular Volume 88.5 fL (81-99); Mean Platelet Vol. 10.5 fl (6.2-12.0); Monocyte# 0.31 X10^3/uL; Monocyte% 6.4 % (0-10); NRBC Flagged by Analyzer 0 % (0-5); Neutrophil # 2.68 X10^3/uL (2.7-7.7); Neutrophil % 55.8 % (47-70); Platelet Count 321 K/mm3 (150-450); RBC Distribution Width CV 13.2 % (11.6-14.6); RBC Distribution Width SD 42.8 fl (35.1-43.9); Red Blood Count 4.89 M/mm3 (4.2-5.4); White Blood Count 4.8 K/mm3 (4.4-11.0)
[2019-12-10 12:56] LABS: Vitamin D,25 Hydroxy 26.7 ng/mL
[2019-12-10 13:04] LABS: ALB/GLOB Ratio 0.9 RATIO (0.9-2.4); AST(SGOT) 22 U/L (15-37); Alanine Aminotransfer ALT/SGPT 33 U/L (13-56); Albumin, Serum 3.6 g/dL (3.2-5.0); Alkaline Phosphatase 145 U/L (45-117); Anion Gap 8 (5-15); BUN 11 mg/dL (7-18); Calcium,Total 9.2 mg/dL (8.5-10.1); Chloride 110 mmol/L (98-107); Creatinine, Serum 0.79 mg/dL (0.55-1.02); EST Glomerular Filtration Rate 76 mL/min (>60); Est Glom Filt Rate - Afr Amer 92 mL/min (>60); Globulin 3.8 g/dL (2.2-4.2); Glucose 89 mg/dL (74-106); Protein, Total 7.4 g/dL (6.4-8.2); Sodium Level 142 mmol/L (136-145); Thyroid Stim Hormone (TSH) 0.27 uIU/mL (0.358-3.74)
== END ==
PROVIDERS: PCP Family Medicine Geriatric Medicine; Visit Provider Family Medicine Geriatric Medicine
DX: E55.9 Vitamin D deficiency, unspecified (principal); R53.83 Other fatigue
CPT/HCPCS: 36415; 80053; 82306; 84443; 85025

== ENCOUNTER → 2019-12-24 13:14 | Outpatient (CLI) | payer MEDICARE, SELFPAY ==
[2019-12-24 17:28] LABS: T3 Uptake 37 % (30-39); T4 Free Direct 1.46 ng/dL (0.76-1.46)
[2019-12-24 17:50] LABS: T7 / Free Thyroxin Index 0.5 (1.4-4.5)
== END ==
PROVIDERS: PCP Family Medicine Geriatric Medicine; Visit Provider Family Medicine Geriatric Medicine
DX: E03.9 Hypothyroidism, unspecified (principal)
CPT/HCPCS: 36415; 84439; 84479

== ENCOUNTER → 2019-12-31 14:52 | Outpatient (CLI) | payer MEDICARE, SELFPAY ==
--- NOTE | 2019-12-31 14:56 | BI_ITS ---
MAMMOGRAPHY - BILATERAL SCREENING REASON FOR EXAM: Female, 74 years old. Routine annual screening examination. PERTINENT HISTORY: Sister with breast cancer. Mother with breast cancer. TECHNIQUE: Digital bilateral breast olvin (3D mammographic acquisition) in the CC and MLO projections. 2-D mediolateral oblique (MLO) and craniocaudad (CC) views of both breasts were obtained. CAD: Full Field Digital Mammography with Computer Added Detection was performed. COMPARISON: Comparison is made with prior examination dated 12/27/2017 and 08/31/2016. FINDINGS: Breast Composition: There are scattered areas of fibroglandular density. There are no dominant masses or suspicious calcifications. There is a 7.3 mm x 7.2 mm well-defined nodule in the retroareolar region of the right breast. This may represent a cyst. Correlation with ultrasound is recommended. No other significant abnormalities are identified. BI/SCREEN MAMM (CAD) W/OLVIN BILAT IMPRESSION: New well-defined 7.3 mm x 7.2 mm nodule in the retroareolar region of the right breast. Correlation with ultrasound is recommended. ASSESSMENT CATEGORY: BIRADS Category 0: Incomplete. Need additional imaging evaluation. A letter regarding these results will be sent to the patient by the facility within 30 days. Approximately 10% of breast cancers are not detected by mammography. A normal mammogram should not delay biopsy of a clinically suspicious abnormality. [id number] Electronically Signed: John Winn, at 9:11 EDT , Service support ,
== END ==
PROVIDERS: PCP Family Medicine Geriatric Medicine; Referring Provider Family Medicine Geriatric Medicine; Visit Provider Family Medicine Geriatric Medicine
DX: Z12.31 Encounter for screening mammogram for malignant neoplasm of breast (principal)
CPT/HCPCS: 77063; 77067

== ENCOUNTER → 2020-01-07 10:46 | Outpatient (CLI) | payer MEDICARE, SELFPAY ==
--- NOTE | 2020-01-07 10:48 | US_ITS ---
STUDY: ULTRASOUND BREAST - RIGHT REASON FOR EXAM: Female, 74 years old. Abnormal screening mammogram. TECHNIQUE: Axial and longitudinal images of the RIGHT breast were performed with a high resolution ultrasound transducer. # OF IMAGES: 66 COMPARISON: Comparison is made with prior mammogram dated 12/31/2019. FINDINGS: RIGHT Breast: The mammographic abnormality corresponds to a 4.2 mm x 3.7 mm ill-defined hypoechoic nodule at the 12 o''clock position of the breast at 1 cm from nipple. Biopsy is recommended. US/Breast Limited Unilateral IMPRESSION: 4.2 mm x 3.7 mm x 3 mm well-defined hypoechoic nodule at the 12 o''clock position of the breast and 1 cm from nipple. A biopsy recommended. ASSESSMENT CATEGORY: BIRADS Category 4: Suspicious - Biopsy Should Be Considered. A letter regarding these results will be sent to the patient by the facility within 30 days. Electronically Signed: John Winn, at 13:30 EDT , Service support ,
== END ==
PROVIDERS: PCP Family Medicine Geriatric Medicine; Referring Provider Family Medicine Geriatric Medicine; Visit Provider Family Medicine Geriatric Medicine
DX: R92.8 Other abnormal and inconclusive findings on diagnostic imaging of breast (principal)
CPT/HCPCS: 76642

== ENCOUNTER 2020-02-07 09:36 | Outpatient (RCR) | payer MEDICARE, SELFPAY | END 2020-02-18 23:59 | LOC: EMPH 09:36 | PROVIDERS: PCP Family Medicine Geriatric Medicine; Visit Provider Family Medicine Geriatric Medicine | DX: Z03.818 Encounter for observation for suspected exposure to other biological agents ruled out (principal) | CPT/HCPCS: 87426 ==

== ENCOUNTER 2020-03-06 10:36 | Outpatient (RCR) | payer MEDICARE, SELFPAY | END 2020-03-20 23:59 | LOC: EMPH 10:36 | PROVIDERS: PCP Family Medicine Geriatric Medicine; Visit Provider Family Medicine Geriatric Medicine | DX: Z03.818 Encounter for observation for suspected exposure to other biological agents ruled out (principal) | CPT/HCPCS: 87426 ==

== ENCOUNTER → 2020-03-24 | Outpatient (CLI) | payer MEDICARE, SELFPAY ==
[2020-03-11 13:13] VITALS: BMI 24.5
--- NOTE | 2020-03-24 | BRBX_PTH ---
PATIENT: NICOLE HUGGINS LOC: [facility] U#:[id number] AGE/SX: 74/F ROOM: RE03/24/[address]: Dr. Darinel John MD : 1945 BED: DIS: 03/24/2020 SPEC #: [id number] RECD: 03/24/20 15:37 STATUS: JENNIE RELyn #: [id number] BRIEN: 03/24/20 00:[address]: Darinel John DEPT: SURGICAL PATHOLOGY RECD BY: Allen Lovett ENTERED: 03/25/20 08:19 SP TYPE: BREAST BX OTHR DR: Dr. Lucio Ayoub MD Tissues: Right breast, NOS Procedures: Surgery Specimen Level IV HEADER OPERATION: Right breast biopsy PRE-OP DIAGNOSIS: Abnormal right breast ultrasound TISSUE SUBMITTED: Right breast tissue FIXATION TIME: 29 hours MICROSCOPIC DIAGNOSIS Right breast, ultrasound-guided core biopsy: Intraductal hyperplasia, multifocal. Mild fibrocystic change. No evidence of malignancy. AM:marty 03/26/2020 MICROSCOPIC DESCRIPTION Slides are reviewed. GROSS DESCRIPTION Received in fixative is one container labeled with the patient name and designated right breast. The specimen consists of multiple elongated fragments of ingram-yellow fibroadipose tissue that in aggregate measure 1 x 0.3 x 0.1 cm. The entire specimen is submitted in one cassette. / SJ:marty 03/25/2020 TC:5 CPT: 87357 ADDENDUM ADDENDUM ADDENDUM ADDENDUM 03/27/2020 08:59 ADDENDUM 03/27/2020 08:59 ADDENDUM 03/27/2020 08:59 ADDENDUM 03/27/2020 08:59 ADDENDUM 03/27/2020 08:59 No atypia is identified. AM:marty 03/27/2020
== END | disposition home or self-care (01) ==
LOC: LABSPEC 15:46
PROVIDERS: PCP Family Medicine Geriatric Medicine; Referring Provider Surgery; Visit Provider Surgery
DX: R92.8 Other abnormal and inconclusive findings on diagnostic imaging of breast (principal)
CPT/HCPCS: 88305

== ENCOUNTER → 2020-03-25 14:22 | Outpatient (CLI) | payer MEDICARE, SELFPAY ==
[2020-03-11 13:13] VITALS: BMI 24.5
--- NOTE | 2020-03-25 14:24 | BI_ITS ---
MAMMOGRAPHY - UNILATERAL DIAGNOSTIC: RIGHT BREAST REASON FOR EXAM: Female, 74 years old. Ultrasound guided right breast biopsy. PERTINENT HISTORY: Sister with breast cancer. Mother with breast cancer. TECHNIQUE: Mediolateral oblique and craniocaudad views of the right breast were obtained. CAD: Full Field Digital Mammography with Computer Added Detection was performed. COMPARISON: Comparison is made with prior mammogram dated 12/31/2019. FINDINGS: Breast Composition: There are scattered areas of fibroglandular density. A tissue clip marker is seen in the retroareolar region of the right breast. No other significant abnormalities are identified. BI/DIAG MAMM W/CAD, UNILAT IMPRESSION: A tissue clip marker is seen in the retroareolar region of the right breast. ASSESSMENT CATEGORY: BIRADS Category 2: Benign. A letter regarding these results will be sent to the patient by the facility within 30 days. Approximately 10% of breast cancers are not detected by mammography. A normal mammogram should not delay biopsy of a clinically suspicious abnormality. Electronically Signed: John Winn, at 15:30 EST , Service support ,
== END ==
PROVIDERS: PCP Family Medicine Geriatric Medicine; Referring Provider Surgery; Visit Provider Surgery
DX: R92.8 Other abnormal and inconclusive findings on diagnostic imaging of breast (principal); Z80.3 Family history of malignant neoplasm of breast
CPT/HCPCS: 77065

== ENCOUNTER 2020-04-18 14:10 | Outpatient (RCR) | payer MEDICARE, SELFPAY ==
[2020-03-11 13:13] VITALS: BMI 24.5
== END 2020-04-20 23:59 ==
LOC: EMPH 14:10
PROVIDERS: PCP Family Medicine Geriatric Medicine; Visit Provider Family Medicine Geriatric Medicine
DX: Z03.818 Encounter for observation for suspected exposure to other biological agents ruled out (principal)
CPT/HCPCS: 87426

== ENCOUNTER 2020-04-29 16:13 | Outpatient (RCR) | payer MEDICARE, SELFPAY ==
[2020-03-11 13:13] VITALS: BMI 24.5
== END 2020-05-18 23:59 ==
LOC: EMPH 16:13
PROVIDERS: PCP Family Medicine Geriatric Medicine; Visit Provider Family Medicine Geriatric Medicine
DX: Z03.818 Encounter for observation for suspected exposure to other biological agents ruled out (principal)

== ENCOUNTER 2020-06-06 13:30 | Outpatient (RCR) | payer MEDICARE, SELFPAY ==
[2020-03-11 13:13] VITALS: BMI 24.5
== END 2020-06-18 23:59 ==
LOC: EMPH 13:30
PROVIDERS: PCP Family Medicine Geriatric Medicine; Visit Provider Family Medicine Geriatric Medicine
DX: Z03.818 Encounter for observation for suspected exposure to other biological agents ruled out (principal)
CPT/HCPCS: 87426

== ENCOUNTER 2020-07-11 14:28 | Outpatient (RCR) | payer MEDICARE, SELFPAY ==
[2020-03-11 13:13] VITALS: BMI 24.5
== END 2020-07-18 23:59 ==
LOC: EMPH 14:28
PROVIDERS: PCP Family Medicine Geriatric Medicine; Visit Provider Family Medicine Geriatric Medicine
DX: Z03.818 Encounter for observation for suspected exposure to other biological agents ruled out (principal)
CPT/HCPCS: 87426

== ENCOUNTER 2020-07-29 11:56 | Outpatient (RCR) | payer MEDICARE, SELFPAY ==
[2020-03-11 13:13] VITALS: BMI 24.5
== END 2020-08-18 23:59 ==
LOC: EMPH 11:56
PROVIDERS: PCP Family Medicine Geriatric Medicine; Visit Provider Family Medicine Geriatric Medicine
DX: Z03.818 Encounter for observation for suspected exposure to other biological agents ruled out (principal)
CPT/HCPCS: 87426

== ENCOUNTER → 2020-09-16 09:18 | Outpatient (CLI) | payer MEDICARE, SELFPAY ==
[2020-03-11 13:13] VITALS: BMI 24.5
--- NOTE | 2020-09-16 09:22 | BI_ITS ---
MAMMOGRAPHY - UNILATERAL DIAGNOSTIC: RIGHT BREAST REASON FOR EXAM: Female, 74 years old. Six-month follow-up examination post biopsy. PERTINENT HISTORY: Ultrasound guided right breast biopsy. TECHNIQUE: Digital unilateral breast mathew (3D mammographic acquisition) in the CC and MLO projections. 2-D mediolateral oblique (MLO) and craniocaudad (CC) views of both breasts were obtained. CAD: Full Field Digital Mammography with Computer Added Detection was performed. COMPARISON: Comparison is made with prior study dated 03/25/2020. FINDINGS: Breast Composition: There are scattered areas of fibroglandular density. There are no dominant masses or suspicious calcifications. A patient marker is seen in the retroareolar region of the breast. This is unchanged No other significant abnormalities are identified. There has been no significant change since the prior study. BI/DIAG MAMM W/CAD, UNILAT IMPRESSION: Stable unilateral diagnostic mammogram. One year follow-up mammogram recommended. (A) ASSESSMENT CATEGORY: BIRADS Category 2: Benign. A letter regarding these results will be sent to the patient by the facility within 30 days. Approximately 10% of breast cancers are not detected by mammography. A normal mammogram should not delay biopsy of a clinically suspicious abnormality. Electronically Signed: John Winn MD at 10:42 EDT , Service support ,
== END ==
PROVIDERS: PCP Family Medicine Geriatric Medicine; Referring Provider Surgery; Visit Provider Surgery
DX: Z98.890 Other specified postprocedural states (principal); R92.8 Other abnormal and inconclusive findings on diagnostic imaging of breast
CPT/HCPCS: 77061; 77065; G0279

== ENCOUNTER 2020-09-16 11:05 | Outpatient (RCR) | payer MEDICARE, SELFPAY ==
[2020-03-11 13:13] VITALS: BMI 24.5
== END 2020-09-17 23:59 ==
LOC: EMPH 11:05
PROVIDERS: PCP Family Medicine Geriatric Medicine; Visit Provider Family Medicine Geriatric Medicine
DX: Z03.818 Encounter for observation for suspected exposure to other biological agents ruled out (principal)
CPT/HCPCS: 87426

== ENCOUNTER 2020-10-17 12:10 | Outpatient (RCR) | payer MEDICARE, SELFPAY ==
[2020-03-11 13:13] VITALS: BMI 24.5
== END 2020-10-18 23:59 ==
LOC: EMPH 12:10
PROVIDERS: PCP Family Medicine Geriatric Medicine; Visit Provider Family Medicine Geriatric Medicine
DX: Z03.818 Encounter for observation for suspected exposure to other biological agents ruled out (principal)
CPT/HCPCS: 87426

== ENCOUNTER 2020-11-18 12:48 | Outpatient (RCR) | payer MEDICARE, SELFPAY ==
[2020-03-11 13:13] VITALS: BMI 24.5
== END 2020-11-18 23:59 ==
LOC: EMPH 12:48
PROVIDERS: PCP Family Medicine Geriatric Medicine; Referring Provider Family Medicine Geriatric Medicine; Visit Provider Family Medicine Geriatric Medicine
DX: Z03.818 Encounter for observation for suspected exposure to other biological agents ruled out (principal)
CPT/HCPCS: 87426

== ENCOUNTER 2020-11-28 12:01 | Outpatient (RCR) | payer MEDICARE, SELFPAY ==
[2020-11-19 00:24] VITALS: BMI 24.5
== END 2020-12-18 23:59 ==
LOC: EMPH 12:01
PROVIDERS: PCP Family Medicine Geriatric Medicine; Referring Provider Family Medicine Geriatric Medicine; Visit Provider Family Medicine Geriatric Medicine
DX: Z03.818 Encounter for observation for suspected exposure to other biological agents ruled out (principal)
CPT/HCPCS: 87426

== ENCOUNTER 2020-12-04 13:30 | Emergency (ER) | payer MEDICARE, SELFPAY ==
[2020-12-04 13:31] VITALS: BP 114/60; PULSE 79; RESP 16; TEMP 35.9; O2SAT 95; BMI 24.2
--- NOTE | 2020-12-04 13:54 | RAD_ITS ---
STUDY: X-RAY - LEFT KNEE REASON FOR EXAM: Female, 75 years old. INJURY TECHNIQUE: 4 view(s) of the knee. COMPARISON: None. FINDINGS: Normal visualized distal femur. Normal visualized proximal tibia and fibula. Normal proximal tibiofibular articulation. Normal medial femorotibial compartment. Normal lateral femorotibial compartment. Normal patellofemoral articulation. Small joint effusion. RAD/Knee 4 or More Views IMPRESSION: Small joint effusion. Electronically Signed: John Winn MD at 14:35 EDT , Service support ,
--- NOTE | 2020-12-04 15:39 | EDS_ITS ---
HPI HPI - Fall History of Present Illness Chief Complaint: Fall Informant: patient Narrative Narrative: Mechanical fall at work tripping over sidewalk. Abrasions to bilateral hands left knee and face. Tetanus unknown. No anticoagulation medicines. Only medications is for thyroid. Denies headache neck pain back pain. No chest or abdominal pain. No paresthesias. Tetanus Immunization: Unknown [facility] Medical History Abnormal mammogram of right breast Breast mass, right Family history of breast cancer Hemorrhoids Thyroid disease Home Medications levothyroxine 75 mcg tablet 75 mcg PO DAILY tab 03/11/20 [History Last Taken Unknown] Allergy/AdvReac Type Severity Reaction Status Date / Time No Known Allergies Allergy Verified 12/04/20 13:33 Family History Mother Breast cancer Sister Breast cancer Sister Lymphoma Surgical History History of partial hysterectomy History of right breast biopsy (~03/2020) Social History Smoking Status: Former smoker second hand exposure: No ROS ROS ED Constitutional Constitutional ED: Denies chills, fever(s) or sweats Eyes Eyes: Denies change in vision ENT ENT ED: Denies dysphagia or sore throat Cardiovascular Cardiovascular: Denies chest pain, leg edema, palpitations or racing heartbeat Respiratory/Chest Respiratory/Chest: Denies cough, dyspnea or dyspnea on exertion Gastrointestinal Gastrointestinal: Denies abdominal pain, diarrhea, nausea or vomiting Genitourinary Genitourinary ED: Denies dysuria, hematuria or urinary frequency Musculoskeletal Musculoskeletal: Reports other Details: Left knee pain ; Denies back pain, extremity pain or neck pain Integumentary Reports Abrasions; Denies rash or wounds Neurologic Neurologic: Denies headache(s), paresthesias or weakness EXAM Physical Exam Const Vital Signs: 12/04/20 13:31 Temperature 96.6 F L Temperature Source Temporal Pulse Rate 79 Respiratory Rate 16 Blood Pressure 114/60 Blood Pressure Mean 78 Pulse Ox 95 Oxygen Delivery Method Room Air Positive well nourished and well developed Constitutional Narrative: GCS 15 General Appearance ED: well developed and NAD HEENT Reports moist mucous membranes HEENT Narrative: Abrasion left eyebrow forehead, left maxillary. normocephalic Eyes PERRL, EOMs intact bilaterally and conjunctivae normal Eyes Narrative: No proptosis or entrapment. No eye injury. General Eye ED: Yes normal appearance of both eyes Neck no lymphadenopathy and supple General: Negative for tenderness Chest Wall inspection of chest normal Chest Narrative: Nontender. Chest: Negative for tenderness Resp normal respiratory effort and normal air movement Effort and Inspection: symmetric chest movement; Negative for respiratory distress Cardio regular rate, regular rhythm and no murmurs Peripheral Pulses: pulses 2+ throughout GI normal to inspection, nondistended, normoactive bowel sounds and non-tender Palpation: Negative for guarding or rebound tenderness present Back/Spine no CVA tenderness and no thoracic nor lumbar tenderness Back/Spine Narrative: No midline neck or back tenderness. No ecchymosis. Extremity Extremity Narrative: Right upper extremity: Active full range of motion with no deformities. There is abrasion at the thenar aspect. No bony tenderness. Left upper extremity: Active full range of motion, small abrasions at the hypothenar section. No active bleeding. Right lower extremity: Negative logroll: Nontender neuro vas intact distally. Left lower extremity: Negative logroll knee extensor mechanism intact there is abrasion at the patellar. Mild bony tenderness. No active bleeding. Neurovascular intact distally. General Extremety ED: Yes edema and tenderness General Extremity: edema Neuro oriented x3 and no sensory deficits noted Sensorium / Orientation: awake and alert Skin no rashes or lesions noted and no wounds Skin Narrative: Abrasions as noted above. MDM MDM MDM Narrative Medical decision making narrative: Patient vital signs stable triage x-ray of the knee evaluated no fractures. There are small joint effusion noted. Facial abrasion she is not on any anticoagulants. She has no headache no neck pain. There is no proptosis or entrapment. Discussed imaging however she is not concerned at this point. I am okay with this with strict return precautions for the patient. Jaycob wrap to the left knee she is able to ambulate. Her tetanus is updated. She will use Tylenol as needed. Wound care discussed. Follow-up as an outpatient. All questions answered. Patient is being discharged under pandemic conditions under declared global, national and state disaster activation, with limited medical resources. Patient and community understands this. Results discussed in layman's terms to the patient satisfaction. All questions answered in layman's terms. Patient understands importance of follow-up care as directed. Patient has been instructed to return to the ED immediately if new symptoms, problems, or questions occur. We mutually agree with the plan of disposition. The patient understand that they may call or return with any questions or concerns at any time. Radiography Diagnostic Testing: Radiology Impression Knee X-Ray 12/04/20 13:54 IMPRESSION: Small joint effusion. Electronically Signed: John Winn MD at 14:35 EDT , Service support , Discharge Plan Triage Chief Complaint: Fall ED Provider: Sonido Payan Dx/Rx/DC Orders Clinical Impression: CHI (closed head injury), Abrasion of face, Contusion of knee, left, Abrasion, multiple sites, Need for [id number] (Tdap) vaccine Instructions: ED Abrasion, ED Contusion, Lower Extremity, ED Head Injury (Adult) Prescriptions: No Action levothyroxine 75 mcg tablet 75 mcg PO DAILY RF: 0 Primary Care Provider: Lucio Ayoub Chi Referrals: Lucio Ayoub Chi, MD [Primary Care Provider] - 1 Week Disposition Disposition: Home, Self Care Discharge Date/Time: 12/04/20 15:58
[2020-12-04] MEDS: Diphth,Pertuss(Acell),Tet Vac 0.5 ML Vial IM (15:57)
== END 2020-12-04 15:58 | disposition home or self-care (01) ==
PROVIDERS: Emergency Provider Emergency Medicine; PCP Family Medicine Geriatric Medicine
DX: S80.02XA Contusion of left knee, initial encounter (principal); S60.511A Abrasion of right hand, initial encounter; S60.512A Abrasion of left hand, initial encounter; S00.81XA Abrasion of other part of head, initial encounter; Z23 Encounter for immunization; W18.09XA Striking against other object with subsequent fall, initial encounter; Y93.9 Activity, unspecified; Y92.480 Sidewalk as the place of occurrence of the external cause; Y99.0 Civilian activity done for income or pay; E06.9 Thyroiditis, unspecified; Z79.890 Hormone replacement therapy; Z87.891 Personal history of nicotine dependence
CPT/HCPCS: 73564; 90471; 90715; 99283

== ENCOUNTER → 2020-12-10 11:40 | Outpatient (CLI) | payer MEDICARE, SELFPAY ==
[2020-12-10 12:21] LABS: Absolute Neutrophil Count 3.6 X10^3/uL (2.0-7.7); Basophil# 0.03 X10^3/uL; Basophil% 0.5 % (0-1); Eosinophil# 0.11 X10^3/uL; Eosinophils% 1.9 % (0-5); Hematocrit 40.6 % (37-47); Hemoglobin 13.2 g/dL (12.0-15.0); Lymphocyte % 29.1 % (19-41); Mean Corp Hgb Conc 32.5 g/dL (32-36); Mean Corpuscular Hgb 29.1 pg (27.0-32.0); Mean Corpuscular Volume 89.6 fL (81-99); Mean Platelet Vol. 10.3 fl (6.2-12.0); Monocyte# 0.38 X10^3/uL; Monocyte% 6.5 % (0-10); NRBC Flagged by Analyzer 0 % (0-5); Neutrophil # 3.62 X10^3/uL (2.7-7.7); Neutrophil % 61.8 % (47-70); Platelet Count 300 K/mm3 (150-450); RBC Distribution Width CV 13.1 % (11.6-14.6); Red Blood Count 4.53 M/mm3 (4.2-5.4); White Blood Count 5.9 K/mm3 (4.4-11.0)
[2020-12-10 12:36] LABS: Vitamin D,25 Hydroxy 24.9 ng/mL
[2020-12-10 12:44] LABS: ALB/GLOB Ratio 0.8 RATIO (0.9-2.4); AST(SGOT) 19 U/L (15-37); Alanine Aminotransfer ALT/SGPT 42 U/L (13-56); Albumin, Serum 3.2 g/dL (3.2-5.0); Alkaline Phosphatase 123 U/L (45-117); Anion Gap 4 (5-15); BUN 12 mg/dL (7-18); BUN/Creat Ratio 14.2 RATIO (10-20); Calcium,Total 8.9 mg/dL (8.5-10.1); Chloride 106 mmol/L (98-107); Creatinine, Serum 0.85 mg/dL (0.55-1.02); EST Glomerular Filtration Rate 70 mL/min (>60); Est Glom Filt Rate - Afr Amer 84 mL/min (>60); Globulin 3.8 g/dL (2.2-4.2); Glucose 146 mg/dL (74-106); Potassium 3.7 mmol/L (3.5-5.1); Sodium Level 137 mmol/L (136-145); Thyroid Stim Hormone (TSH) 0.81 uIU/mL (0.358-3.74)
[2020-12-10 16:18] LABS: Hemoglobin A1c 5.4 % (3.8-5.6)
== END ==
PROVIDERS: PCP Family Medicine Geriatric Medicine; Visit Provider Family Medicine Geriatric Medicine
DX: R53.83 Other fatigue (principal); E55.9 Vitamin D deficiency, unspecified; R79.9 Abnormal finding of blood chemistry, unspecified
CPT/HCPCS: 36415; 80053; 82306; 83036; 84443; 85025

== ENCOUNTER → 2021-01-19 13:06 | Outpatient (CLI) | payer MEDICARE, SELFPAY ==
--- NOTE | 2021-01-19 13:15 | MRI_ITS ---
STUDY: MRI LEFT KNEE REASON FOR EXAM: Female, 75 years old. Fluidlike pocket over the patella since the fall injury on December 04, 2020 TECHNIQUE: Standardized fat and water weighted pulse sequences were obtained in all 3 orthogonal planes. COMPARISON: Left knee x-ray dated December 04, 2020 FINDINGS: A small prepatellar bursal fluid collection is present compatible with a posttraumatic seroma. Mild to moderate patchy edema is present in the midpole and inferior aspect of the patella. No discrete fracture line or displaced fragment is seen. A small 1.09 cm osteochondral defect is present at the superior pole of the medial patellar facet with high-grade loss of cartilage and subchondral reactive signal. Mild radial tearing at the free edge of the body of the medial meniscus is present. Normal anterior horn and posterior horn. There is diffuse, greater than 50% thickness articular cartilage loss of the medial femorotibial compartment. Normal medial femoral condyle and tibial plateau. Normal medial collateral ligamentous complex (MCL). Normal distal semimembranosus, gracilis and semitendinosus tendons. Normal lateral meniscus. There is diffuse, greater than 50% thickness articular cartilage loss of the lateral femorotibial compartment. Normal lateral femoral condyle and tibial plateau. Normal proximal tibiofibular articulation. Normal lateral collateral (fibular) ligament. Normal popliteus tendon. Normal biceps femoris tendon. Normal anterior cruciate ligament (ACL). Normal posterior cruciate ligament (PCL). Normal congruent patellofemoral articulation. Normal hyaline cartilage of the patellofemoral compartment. Normal medial and lateral patellar retinaculum. Normal quadriceps tendon. Normal patellar tendon. Normal Hoffa''s fat pad. Small joint effusion noted. The soft tissues are unremarkable. The otherwise visualized osseous structures are unremarkable. IMPRESSION: Posttraumatic prepatellar bursal fluid collection and bony contusion of the patella 1. A small prepatellar bursal fluid collection is present compatible with a posttraumatic seroma. Mild to moderate patchy edema is present in the midpole and inferior aspect of the patella. No discrete fracture line or displaced fragment is seen. 2. A small 1.09 cm osteochondral defect is present at the superior pole of the medial patellar facet with high-grade loss of cartilage and subchondral reactive signal. 3. Mild radial tearing of the body of the medial meniscus. Electronically Signed: Jose Luis Peñaloza MD at 17:22 EDT , Service support , MRI/Lower Ext Joint Only (Routine)
== END ==
PROVIDERS: PCP Family Medicine Geriatric Medicine; Referring Provider Family Medicine Geriatric Medicine; Visit Provider Family Medicine Geriatric Medicine
DX: M25.562 Pain in left knee (principal)
CPT/HCPCS: 73721

== ENCOUNTER 2021-02-27 13:33 | Outpatient (RCR) | payer MEDICARE, SELFPAY ==
[2020-12-19 00:19] VITALS: BMI 24.5
== END 2021-03-20 23:59 ==
LOC: EMPH 13:33
PROVIDERS: PCP Family Medicine Geriatric Medicine; Referring Provider Family Medicine Geriatric Medicine; Visit Provider Family Medicine Geriatric Medicine
DX: Z03.818 Encounter for observation for suspected exposure to other biological agents ruled out (principal)
CPT/HCPCS: 87426

== ENCOUNTER 2021-03-26 14:17 | Outpatient (RCR) | payer MEDICARE, SELFPAY ==
[2021-03-21 00:05] VITALS: BMI 24.5
== END 2021-04-20 23:59 ==
LOC: EMPH 14:17
PROVIDERS: PCP Family Medicine Geriatric Medicine; Referring Provider Family Medicine Geriatric Medicine; Visit Provider Family Medicine Geriatric Medicine
DX: Z03.818 Encounter for observation for suspected exposure to other biological agents ruled out (principal)
CPT/HCPCS: 87426

== ENCOUNTER 2021-09-12 15:47 | Emergency (ER) | payer MEDICARE, SELFPAY ==
[2021-09-12 15:48] VITALS: BP 169/115; PULSE 109; RESP 16; TEMP 36.6; O2SAT 98; BMI 23.6
--- NOTE | 2021-09-12 16:50 | EDS_ITS ---
HPI History of Present Illness Chief Complaint: Chest Other Informant: patient Onset/Context/Timing Onset: Days (4) Mechanism/Context: Blunt Injury Quality of Pain: Sharp Location: Left chest Worsened by: Certain movements Relieved by: Rest Associated Symptoms Associated Symptoms: Negative for Parasthesias, Weakness, Loss of function, Inability to ambulate, Loss of consciousness or Amnesia Narrative Narrative: Patient presents with pain in her left ribs that began 4 days ago. Patient states she was sitting in a chair and leaned over the side. Patient states she felt a pop in her left ribs at that time. Patient states her pain is only p resent whenever she moves certain ways. Patient states it is better with rest. Patient denies any other injuries. Patient denies any shortness of breath. Patient denies any cough. Patient denies any nausea or vomiting. [facility] Medical History Abnormal mammogram of right breast Breast mass, right Contusion of right knee Family history of breast cancer Hemorrhoids Strain of right knee Thyroid disease Home Medications levothyroxine 75 mcg tablet 75 mcg PO DAILY 03/11/20 [History Last Taken Unknown] nirmatrelvir 300 mg (150 mg x 2)-ritonavir 100 mg tablet (EUA) (Paxlovid 300 mg () See Rx Instructions PO .COMPLEX #30 tabs 07/28/21 [Rx Last Taken Unknown] Allergy/AdvReac Type Severity Reaction Status Date / Time No Known Allergies Allergy Verified 09/12/21 15:49 Family History Mother Breast cancer Sister Breast cancer Sister Lymphoma Surgical History History of partial hysterectomy History of right breast biopsy (~03/2020) Social History Smoking Status: Former smoker second hand exposure: No alcohol intake: never substance use type: does not use ROS ROS ED Constitutional Constitutional ED: Denies chills or fever(s) Eyes Eyes: Denies blurry vision or change in vision ENT ENT ED: Denies rhinorrhea or sore throat Cardiovascular Cardiovascular: Reports chest pain; Denies palpitations Respiratory/Chest Respiratory/Chest: Denies cough or dyspnea Gastrointestinal Gastrointestinal: Denies nausea or vomiting Genitourinary Genitourinary ED: Denies dysuria or hematuria Musculoskeletal Musculoskeletal: Denies back pain or neck pain Integumentary Denies abscess or rash Neurologic Neurologic: Denies headache(s) or weakness Allergic/Immunologic Allergic/Immunologic ED: Denies mouth swelling or urticaria EXAM Physical Exam Const Vital Signs: 09/12/21 15:48 09/12/21 16:58 Temperature 98 F Temperature Source Temporal Pulse Rate 109 H Respiratory Rate 16 Respiratory Effort Normal Blood Pressure 169/115 H Blood Pressure Mean 133 Pulse Ox 98 Oxygen Delivery Method Room Air Positive well nourished and well developed General Appearance ED: well developed HEENT Reports moist mucous membranes Neck supple and no JVD Chest Wall Chest Narrative: There is tenderness over the left fourth, fifth, and sixth rib areas on the left. There is no bony crepitance or step-off. Resp normal respiratory effort and clear to auscultation bilaterally Cardio regular rate, regular rhythm and no murmurs GI normal to inspection, nondistended, normoactive bowel sounds and non-tender Palpation: soft Extremity normal to inspection General Extremety ED: Negative for edema or tenderness General Extremity: Negative for edema Neuro oriented x3, CN's II-XII intact bilaterally and no sensory deficits noted Sensorium / Orientation: alert Motor Exam: strength 5/5 throughout Psych mental status grossly normal Skin no rashes or lesions noted MDM MDM MDM Narrative Medical decision making narrative: X-rays of the left ribs were obtained. There are 5 views. On my interpretation, there is a nondisplaced left sixth rib fracture. There is no pneumothorax. There is no acute cardiopulmonary process. Radiologist also interpreted the x-ray and agrees. Patient was advised of her findings. Patient was instructed to use ice to the area. Patient was instructed to take 10-15 deep breaths every hour to prevent atelectasis and pneumonia. Patient was instructed to take Tylenol or ibuprofen as needed for pain. Patient understood and was agreeable with the plan. All questions were answered. Radiography Diagnostic Testing: Clinical Impression(s) from Imaging Studies Ribs w/Chest X-Ray 09/12/21 16:52 IMPRESSION: Minimally displaced left anterolateral left sixth rib fracture. Electronically Signed: Delfin Evans MD (Brooks) at 17:30 EDT , Discharge Plan Triage Chief Complaint: Chest Other ED Provider: Chris Bliss Dx/Rx/DC Orders Clinical Impression: Left rib fracture, Chest wall pain Instructions: ED Rib Fracture Prescriptions: No Action levothyroxine 75 mcg tablet 75 mcg PO DAILY Paxlovid (EUA) 150 mg x 2- 100 mg tablet See Rx Instructions PO .COMPLEX Qty: 30 0RF Rx Instructions: take TWO 150 mg tablets of nirmatrelvir with ONE 100 mg tablet of ritonavir twice daily for 5 days PO Primary Care Provider: Lucio Ayoub Chi Referrals: Lucio Ayoub Chi, MD [Primary Care Provider] - 3-5 Days Disposition Disposition: Home, Self Care
--- NOTE | 2021-09-12 16:52 | RAD_ITS ---
EXAM: XR LEFT RIBS AND AP CHEST, 3 OR MORE VIEWS CLINICAL INDICATION: Pain TECHNIQUE: Frontal and oblique views of the left ribs and frontal view of the chest. This report was created using [employer] report generation technology. COMPARISON: None. FINDINGS: LUNGS AND PLEURAL SPACES: Unremarkable. No consolidation or edema. No pneumothorax. No effusion. HEART: Unremarkable. Cardiac silhouette not enlarged. MEDIASTINUM: Central airways and mediastinal contour are unremarkable. BONES/JOINTS: Minimally displaced left anterolateral left sixth rib fracture. RAD/Ribs Uni Min 3V w/PA Chest IMPRESSION: Minimally displaced left anterolateral left sixth rib fracture. Electronically Signed: Delfin Evans MD ([place]) at 17:30 EDT ,
== END 2021-09-12 17:58 | disposition home or self-care (01) ==
PROVIDERS: Emergency Provider Emergency Medicine; PCP Family Medicine Geriatric Medicine; Visit Provider Emergency Medicine
DX: S22.32XA Fracture of one rib, left side, initial encounter for closed fracture (principal); X58.XXXA Exposure to other specified factors, initial encounter; Z79.890 Hormone replacement therapy; Z87.891 Personal history of nicotine dependence
CPT/HCPCS: 71101; 99282

== ENCOUNTER 2021-09-30 13:00 | Outpatient (RCR) | payer MEDICARE, SELFPAY ==
--- NOTE | 2021-08-26 14:51 | HP.PTEVAL ---
Patient's Visit Information NICOLE HUGGINS is a 75 year old F referred to Physical Therapy by Dr. Carlos Holloway DPM with a diagnosis of Balance. Date of Evaluation: 08/26/21 Physical Therapist: Pricila Loza DPT - Visit Plan Frequency: 2x /Week Duration: 4 Weeks Plan: Aquatic PT- Focus on LE and core strength/stabilization- balance. HEP Given IE: sink ex: mini squat, HR/TR, hip abd, hip extn, hip flexion, SLS - Subjective Patient reports that she went to the foot doctor-she has no pain at this point but she does feel that she has balance issues. She has had balance issues for awhile but feels its getting worse. She has to hold the rail to go up/down the stairs and when she gets up/down out of the chair she has to push herself up. She is just not as confident as she use to be. Last Nov she fell- she tripped on the sidewalk. She has fallen 2x since then. She was out getting the paper and it was dark- black ice- had to call the neighbor to help her up. She was pulling the door open and fell the last time (3 months ago). No pain at this time. She is wearing tennis shoes- and does have an insert in the shoes. No cane or assistive device. 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 - Objective Posture: FH, RS- can correct with verbal and tactile cues but does not maintain. Gait: no significant deviation noted. Stairs: asc/desc 8 recip with 1 HR. ROM: WFL in all planes. Strength: Core: fair, Hip: 4+/5, Knee: 5/5, Ankle: 5/5. Balance: see FGA. Transfers: unable to sit to stand without UE A - Balance/Special Test Scores Functional Gait Assessment Score: 29 % Disability: 3.3400 Lower Extremity Functional Score: 57 TUG Test Time Seconds: 8.5 - Goals Goal 1:: Patient will be I with HEP and progression Goal Time Frame: 4-6 Weeks Goal 2:: Patient will maintain proper posture t/o tx session to demo increased core s/s Goal Time Frame: 4-6 Weeks Goal 3:: Patient will sit to stand without UE A Goal Time Frame: 4-6 Weeks Goal 4:: Patient will asc/desc 8 recip with no HR Goal Time Frame: 4-6 Weeks - Rehabilitation Potential Physical Therapy Diagnosis: Patient presents with hypomobility- she has decreased core strength/stabilization, flex and muscular endurance leading to poor posture and decreased ability to perform ADL's. Rehabilitation Potential: Good - Anticipated Interventions Patient/Client Instruction: Educate patient on: Benefits of Fitness Program Therapeutic Exercise to Include: Strength training, Endurance training, Balance training, Coordination, Agility training, Body mechanics, Postural training, Flexibilty training, Gait and locomotor training, In an aquatic setting, Dynamic Lumbar Stabilization, Scapular Strength/Stabilization For the Purpose of:: To improve muscle performance and motor function Thank you for the opportunity to evaluate your patient. For Medicare and Medicare HMO plans, please review the plan of care and approve it. It will need to be FAXED BACK to us at [phone] for Medicare purposes. For Medicare only, by signing this I certify the plan of care. Please let me know if there are questions or concerns regarding this plan of care. Physician Signature: Date:
--- NOTE | 2021-09-30 13:17 | HP.PTDCSUM ---
It has been my pleasure to treat NICOLE HUGGINS referred by Dr. Carlos Holloway DPM, with the diagnosis of Balance for a total of 7 visit(s). Discharge Date: Please see the following information for a summary of their discharge status. Subjective: Patient reports that she is doing much better. She still feels that she has a little bit of off balance when she gets up in the mornings. She is more confidence with her balance. 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 Objective/Function: Posture: FH, RS- can correct with verbal and tactile cues but does not maintain. Gait: no significant deviation noted. Stairs: asc/desc 8 recip with 1 HR. ROM: WFL in all planes. Strength: Core: fair, Hip: 4+/5, Knee: 5/5, Ankle: 5/5. Balance: see FGA. Transfers: can stand without UE A x1 Goal 1:: Patient will be I with HEP and progression Goal Progress: Progressing Goal 2:: Patient will maintain proper posture t/o tx session to demo increased core s/s Goal 3:: Patient will sit to stand without UE A Goal Progress: Goal Met Goal 4:: Patient will asc/desc 8 recip with no HR Goal Progress: Progressing Plan: 09/30/21: Discharge to I HEP. Aquatic PT- Focus on LE and core strength/stabilization, balance If there are questions or concerns regarding this patient's physical therapy, please feel free to call me at [phone]. Thank you for the referral of this patient. Sincerely, Pricila Loza, SHARONT Balance/Gait/Functional tests - Balance/Special Test Scores Functional Gait Assessment Score: 27 % Disability: 10.0000 Lower Extremity Functional Score: 69 TUG Test Time Seconds: 8.5 Tug Test: <10 sec.=free mobile
== END 2021-09-30 14:30 | disposition home or self-care (01) ==
LOC: PT 13:00
PROVIDERS: PCP Family Medicine Geriatric Medicine; Referring Provider Podiatrist; Visit Provider Podiatrist
DX: R26.81 Unsteadiness on feet (principal)
CPT/HCPCS: 97110; 97113; 97162; 97164

== ENCOUNTER 2022-01-29 07:39 | Inpatient (IN) | payer MEDICARE, SELFPAY ==
[2022-01-29] VITALS (21 sets, daily range): BP systolic 109–164; BP diastolic 65–123; PULSE 81–101; RESP 12–20; TEMP 36–36.8; O2SAT 93–100; BMI 29.9
--- NOTE | 2022-01-29 07:54 | EDS_ITS ---
HPI HPI - Fall History of Present Illness Chief Complaint: Fall Informant: patient Occured/Mechanism Occurred: Today Mechanism/Context: Yes same level fall and Yes slip Pain/Injury Pain Location: lower extremity (Right hip) Quality of Pain: Stabbing Worsened by: Movement Relieved by: Nothing Associated Symptoms Associated Symptoms: Positive for Inability to ambulate; Negative for Parasthesias, Weakness, Loss of function, Loss of consciousness or Amnesia Narrative Narrative: Patient presents with right hip pain that began after a fall today. Patient states she was using Drano to clean out the drain in her kitchen sink. Patient states it started bubbling and she started walking backwards to get away from it when she slipped and fell. Patient denies any head injury or loss of conscious ness. Patient was unable to get up after the fall. Patient states her pain is sharp and stabbing. Patient states it is worse with any movement. Patient denies any paresthesias or weakness. PFSH PFS Medical History Abnormal mammogram of right breast Breast mass, right Contusion of right knee Family history of breast cancer Hemorrhoids Strain of right knee Thyroid disease Home Medications levothyroxine 75 mcg tablet 75 mcg PO DAILY 03/11/20 [History Last Taken Unknown] Allergy/AdvReac Type Severity Reaction Status Date / Time No Known Allergies Allergy Verified 01/29/22 07:40 Family History Mother Breast cancer Sister Breast cancer Sister Lymphoma Surgical History History of partial hysterectomy History of right breast biopsy (~03/2020) Social History Smoking Status: Former smoker second hand exposure: No alcohol intake: never substance use type: does not use ROS ROS ED Constitutional Constitutional ED: Denies chills or fever(s) Eyes Eyes: Denies blurry vision or change in vision ENT ENT ED: Denies rhinorrhea or sore throat Cardiovascular Cardiovascular: Denies chest pain or palpitations Respiratory/Chest Respiratory/Chest: Denies cough or dyspnea Gastrointestinal Gastrointestinal: Denies nausea or vomiting Genitourinary Genitourinary ED: Denies dysuria or hematuria Musculoskeletal Musculoskeletal: Denies back pain or neck pain Integumentary Denies abscess or rash Neurologic Neurologic: Denies headache(s) or weakness Allergic/Immunologic Allergic/Immunologic ED: Denies mouth swelling or urticaria EXAM Physical Exam Const Vital Signs: 01/29/22 07:41 01/29/22 07:44 01/29/22 09:23 Temperature 96.8 F L Temperature Source Temporal Pulse Rate 84 81 Respiratory Rate 16 16 Respiratory Effort Normal Non-Labored Respiratory Depth Normal Respiratory Pattern Normal Blood Pressure 160/81 H 134/81 H Blood Pressure Mean 107 98 Pulse Ox 99 99 98 Oxygen Delivery Method Room Air Room Air Room Air Positive well nourished and well developed General Appearance ED: well developed and NAD HEENT Reports normocephalic atraumatic Neck full ROM and supple Resp normal respiratory effort and clear to auscultation bilaterally Cardio regular rate and regular rhythm GI non-tender Palpation: soft Extremity Extremity Narrative: There is some shortening of the right lower extremity. Patient is laying on her left side. Range of motion was limited in all motions of the right hip secondary to pain. Strength is 5/5 bilaterally in the lower extremities. There are no sensory deficits. Pedal pulses are equal bilaterally. Neuro oriented x3, CN's II-XII intact bilaterally, moves all extremities, no focal motor deficits and no sensory deficits noted Sensorium / Orientation: alert Motor Exam: strength 5/5 throughout Psych mental status grossly normal MDM MDM MDM Narrative Medical decision making narrative: Patient was given morphine and Zofran initially. X-rays of the right hip were obtained. There are 3 views. On my interpretation, there is intertrochanteric fracture of the right hip with some displacement. Radiologist also interpreted the x-rays and agrees. Portable 1 view chest x-ray was obtained. On my interpretation, lung brock are clear. There is normal cardiac silhouette. Bony thorax is normal. There is no acute process noted. Radiologist also interpreted the x-ray and agrees. CBC was within normal limits. Comprehensive metabolic profile shows a potassium of 2.8 but was otherwise within normal limits. PT with INR and PTT were within normal limits. EKG was obtained. On my interpretation, it showed a normal sinus rhythm with a rate of 83. ME interval, QRS interval, and QTc intervals were all normal. [place] was normal. There are no acute ST or T wave changes. Patient was given a repeat dose of Dilaudid. Patient and family requested Dr. Salas care for the fracture. He was contacted and stated he was going out of town and he referred to Dr. Pina. Case was discussed with Dr. Pina. He will care for the patient but requested the patient be admitted to the hospitalist. Case was discussed with the hospitalist. She will admit the patient to her service. Patient understood and was agreeable with the plan. All questions were answered. Lab Data Attestation: I reviewed the patient's lab results. Labs: Laboratory Results - last 24 hr 01/29/22 01/29/22 01/29/22 07:45 07:45 07:45 WBC 8.0 RBC 4.29 Hgb 12.3 Hct 38.3 MCV 89.3 MCH 28.7 MCHC 32.1 RDW Std Deviation 42.6 RDW Coeff of Rosita 13.0 Plt Count 248 MPV 10.3 Immature Gran % (Auto) 0.400 Neut % (Auto) 73.1 H Lymph % (Auto) 18.8 L [place] % (Auto) 5.6 Eos % (Auto) 1.6 Baso % (Auto) 0.5 Absolute Neuts (auto) 5.9 Absolute Lymphs (auto) 1.51 Nucleated RBC % 0 PT 12.5 INR 1.0 APTT 25.6 Sodium 139 Potassium 2.8 L Chloride 106 Carbon Dioxide 23.0 Anion Gap 10 BUN 14 Creatinine 0.81 Estim Creat Clear Calc 55.31 Est GFR (MDRD) Af Amer 88 Est GFR (MDRD) Non-Af 73 BUN/Creatinine Ratio 17.2 Glucose 104 Calcium 8.1 L Total Bilirubin 0.50 AST 24 ALT 35 Alkaline Phosphatase 131 H Total Protein 6.3 L Albumin 3.3 Globulin 3.0 Albumin/Globulin Ratio 1.1 Radiography Diagnostic Testing: Clinical Impression(s) from Imaging Studies Chest X-Ray 01/29/22 07:57 IMPRESSION: Elevation of the right hemidiaphragm. No acute abnormality is seen. Electronically Signed: John Winn MD at 8:43 EST , Hip/Pelvis X-Ray 01/29/22 07:58 IMPRESSION: Comminuted right intertrochanteric fracture with cephalic migration of the distal fracture fragment. Electronically Signed: John Winn MD at 8:44 EST , EKG Initial EKG: Attestation: I personally reviewed and interpreted this EKG as follows: Interpretation: Sinus Rhythm (83) and No Acute Injury Pattern Prior EKG tracings: not available for review Prior: No Prior Discharge Plan Dx/Rx/DC Orders Clinical Impression: Closed intertrochanteric fracture of right hip, Thyroid disease, Fall Disposition Disposition: Acute Care Hospital [facility]
--- NOTE | 2022-01-29 07:57 | RAD_ITS ---
STUDY: X-RAY CHEST REASON FOR EXAM: Female, 76 years old. History of fall. Cough. TECHNIQUE: Single AP portable view of the chest. COMPARISON: None. FINDINGS: Elevation of the right hemidiaphragm. There is no demonstrated pleural abnormality. Normal size heart. Normal mediastinum and tamiko. Normal visualized pulmonary arteries. Normal visualized aortic arch and descending thoracic aorta. There are degenerative changes of the visualized thoracic spine. Normal visualized ribs, clavicles, and shoulders. There is no demonstrated abnormality of the visualized soft tissue structures of the upper abdomen. RAD/Chest 1 View (Portable) IMPRESSION: Elevation of the right hemidiaphragm. No acute abnormality is seen. Electronically Signed: John Winn MD at 8:43 EST ,
--- NOTE | 2022-01-29 07:58 | EKG12_ITS ---
Test Reason : FALL Blood Pressure : / mmHG Vent. Rate : 083 BPM Atrial Rate : 083 BPM P-R Int : 180 ms QRS Dur : 084 ms QT Int : 384 ms P-R-T Axes : 072 013 065 degrees QTc Int : 451 ms Normal sinus rhythm Normal ECG Confirmed by KAYLEE WARE, OG ([id number]), social media editor LEANNE MURRAY ([id number]) on 02/02/2022 11:29:03 AM Referred By: Confirmed By:GO PAGE MD
--- NOTE | 2022-01-29 07:58 | RAD_ITS ---
STUDY: X-RAY - PELVIS AND RIGHT HIP REASON FOR EXAM: Female, 76 years old. Injury/Pain TECHNIQUE: 3 views of the pelvis and hip. COMPARISON: None. FINDINGS: There is a non-specific bowel gas pattern. Normal visualized soft tissue structures. Normal bilateral iliac wings, sacroiliac joints and visualized sacrum. Normal bilateral superior and inferior pubic rami. Normal pubic symphysis. Normal bilateral ischial tuberosities. Comminuted right intertrochanteric fracture with cephalic migration of the distal fracture fragment. RAD/HIP, UNI W/ Pelvis 2-3 Views IMPRESSION: Comminuted right intertrochanteric fracture with cephalic migration of the distal fracture fragment. Electronically Signed: John Winn MD at 8:44 EST ,
[2022-01-29] MEDS: Morphine 4 MG/ML Syringe IV (08:05)
[2022-01-29] MEDS: Ondansetron 4 MG/2 ML Vial IV (08:05)
[2022-01-29 08:07] LABS: Absolute Lymphocyte Count 1.51 X10^3/uL (0.83-4.51); Absolute Neutrophil Count 5.9 X10^3/uL (2.0-7.7); Basophil# 0.04 X10^3/uL; Basophil% 0.5 % (0-1); Eosinophil# 0.13 X10^3/uL; Eosinophils% 1.6 % (0-5); Hematocrit 38.3 % (37-47); Hemoglobin 12.3 g/dL (12.0-15.0); Lymphocyte # 1.51 X10^3/ul (0.83-4.51); Lymphocyte % 18.8 % (19-41); Mean Corp Hgb Conc 32.1 g/dL (32-36); Mean Corpuscular Hgb 28.7 pg (27.0-32.0); Mean Corpuscular Volume 89.3 fL (81-99); Mean Platelet Vol. 10.3 fl (6.2-12.0); Monocyte# 0.45 X10^3/uL; Monocyte% 5.6 % (0-10); NRBC Flagged by Analyzer 0 % (0-5); Neutrophil # 5.88 X10^3/uL (2.7-7.7); Neutrophil % 73.1 % (47-70); Platelet Count 248 K/mm3 (150-450); RBC Distribution Width SD 42.6 fl (35.1-43.9); Red Blood Count 4.29 M/mm3 (4.2-5.4)
--- NOTE | 2022-01-29 08:15 | ED.RN ---
PT DAUGHTER IN LAW TOOK GLASSES HOME WITH HER.
[2022-01-29 08:23] LABS: Prothrombin Time (Protime)PT. 12.5 SECONDS (11.7-14.9)
[2022-01-29 08:24] LABS: Partial Thromboplast Time 25.6 Seconds (24.1-36.2)
[2022-01-29 08:26] LABS: ALB/GLOB Ratio 1.1 RATIO (0.9-2.4); AST(SGOT) 24 U/L (15-37); Alanine Aminotransfer ALT/SGPT 35 U/L (13-56); Albumin, Serum 3.3 g/dL (3.2-5.0); Alkaline Phosphatase 131 U/L (45-117); Anion Gap 10 (5-15); BUN 14 mg/dL (7-18); BUN/Creat Ratio 17.2 RATIO (10-20); Calcium,Total 8.1 mg/dL (8.5-10.1); Chloride 106 mmol/L (98-107); Creatinine, Serum 0.81 mg/dL (0.55-1.02); EST Glomerular Filtration Rate 73 mL/min (>60); Est Glom Filt Rate - Afr Amer 88 mL/min (>60); Estimated Creatinine Clearance 55.31 ml/min; Glucose 104 mg/dL (74-106); Potassium 2.8 mmol/L (3.5-5.1); Protein, Total 6.3 g/dL (6.4-8.2); Sodium Level 139 mmol/L (136-145)
[2022-01-29] MEDS: HYDROmorphone 1 MG/ML Syringe 0.5 MG IV ×2 (08:29→10:30)
[2022-01-29] MEDS: Potassium Chloride 10mEq/100mL 10 MEQ/100 ML IV.SOLN. 100 MEQ IV BOLUS ×3 (09:24→12:01)
[2022-01-29] MEDS: 0.9% Normal Saline 1,000 ML 150 ML IV (09:26)
--- NOTE | 2022-01-29 10:57 | PCM.HP.STD ---
HPI - General General Date of Admission: 01/29/22 Date of Service: 01/29/22 Chief Complaint: Fall, hip pain?this morning HPI Narrative NICOLE HUGGINS, is a 76 F who presents with pain in her right hip. Patient has past medical history of hypothyroidism, on Synthroid. She was working in her kitchen at her sink trying to clear the drain with Draino in the kitchen. She tried to move back was when it appeared the drain was working. Patient slipped and fell. Any dizziness or feeling unwell or palpitations or chest pain prior to this. She thinks that she may have slipped on her slippers. She denied any history of recent falls or feeling unwell. In the ER ED, her blood pressure was initially 160/81, improved to 136/66, heart rate was 84, respiratory rate 16, temperature 96.8 F, she was saturating 99% on room air. Her admitting blood work was essentially unremarkable except for potassium of 2.8. This was replaced. X-ray of the chest showed elevation of the right hemidiaphragm. X-ray of the hip showed comminuted right intertrochanteric fracture with cephalic migration of the distal fracture fragment. [facility] Medical History Abnormal mammogram of right breast Breast mass, right Contusion of right knee Family history of breast cancer Hemorrhoids Strain of right knee Thyroid disease Home Medications levothyroxine 75 mcg tablet 75 mcg PO DAILY 03/11/20 [History Last Taken Unknown] Allergy/AdvReac Type Severity Reaction Status Date / Time No Known Allergies Allergy Verified 01/29/22 07:40 Family History Mother Breast cancer Sister Breast cancer Sister Lymphoma Surgical History History of partial hysterectomy History of right breast biopsy (~03/2020) Social History Smoking Status: Former smoker second hand exposure: No alcohol intake: never substance use type: does not use ROS ROS Narrative Constitutional: Denies: Anorexia, Chills, Fever, Night Sweats, Weight Change Eyes: Denies: Blurred vision, Cataracts, Conjunctivae Inflammation, Pain, Redness, Vision Change HEENT: Denies: Difficulty Hearing, Difficulty Swallowing, Head Aches, Hearing Changes, Sinus Congestion, Sinus Drainage Cardiovascular: Denies: Chest Pain, Orthopnea, Palpitations Respiratory: Denies: Cough, Shortness of breath at rest, Sputum production Gastrointestinal: Denies: Abdominal Pain, Nausea, Vomiting Genitourinary: Denies: Dysuria Musculoskeletal: See HPI Skin: Denies: Rash, Wounds Neurological: Denies: Numbness, Tingling, Focal weakness Vital Signs Vital Signs Vital Signs: 01/29/22 07:41 01/29/22 07:44 01/29/22 09:23 Temperature 96.8 F L Temperature Source Temporal Pulse Rate 84 81 Respiratory Rate 16 16 Respiratory Effort Normal Non-Labored Respiratory Depth Normal Respiratory Pattern Normal Blood Pressure 160/81 H 134/81 H Blood Pressure Mean 107 98 Pulse Ox 99 99 98 Oxygen Delivery Method Room Air Room Air Room Air Weight Weight: 84.2 kg Body Mass Index (BMI) 29.9 Physical Exam Narrative Physical exam: General: Alert, Oriented x3, Cooperative HEENT: Atraumatic Oral: Moist Mucosa Neck: Supple Lungs: Clear to auscultation Cardiovascular: HS I+II, regular, no murmurs Abdomen: Bowel Sounds Present, Soft, Non Tender Extremities: No edema, right lower leg is externally rotated, slightly shorter, tenderness on palpation of the right hip Skin: No rashes, No breakdown Neurological: Grossly intact Psych/Mental Status: Appropriate Results Lab / Micro Data Result Diagrams: 01/29/22 07:45 01/29/22 11:38 Labs: Laboratory Results - last 24 hr 01/29/22 07:45: WBC 8.0, RBC 4.29, Hgb 12.3, Hct 38.3, MCV 89.3, MCH 28.7, MCHC 32.1, RDW Std Deviation 42.6, RDW Coeff of Rosita 13.0, Plt Count 248, MPV 10.3, Immature Gran % (Auto) 0.400, Neut % (Auto) 73.1 H, Lymph % (Auto) 18.8 L, [place] % (Auto) 5.6, Eos % (Auto) 1.6, Baso % (Auto) 0.5, Absolute Neuts (auto) 5.9, Absolute Lymphs (auto) 1.51, Nucleated RBC % 0 01/29/22 07:45: PT 12.5, INR 1.0, APTT 25.6 01/29/22 07:45: Sodium 139, Potassium 2.8 L, Chloride 106, Carbon Dioxide 23.0, Anion Gap 10, BUN 14, Creatinine 0.81, Estim Creat Clear Calc 55.31, Est GFR (MDRD) Af Amer 88, Est GFR (MDRD) Non-Af 73, BUN/Creatinine Ratio 17.2, Glucose 104, Calcium 8.1 L, Total Bilirubin 0.50, AST 24, ALT 35, Alkaline Phosphatase 131 H, Total Protein 6.3 L, Albumin 3.3, Globulin 3.0, Albumin/Globulin Ratio 1.1 Radiology Impression Chest X-Ray 01/29/22 07:57 IMPRESSION: Elevation of the right hemidiaphragm. No acute abnormality is seen. Electronically Signed: John Winn MD at 8:43 EST , Hip/Pelvis X-Ray 01/29/22 07:58 IMPRESSION: Comminuted right intertrochanteric fracture with cephalic migration of the distal fracture fragment. Electronically Signed: John Winn MD at 8:44 EST , Assessment & Plan Assessment/Plan (1) Closed intertrochanteric fracture of right hip: (2) Fall: PLAN: Plan 1. Acute right comminuted hip fracture with displacement of the distal fragment, status post mechanical fall Orthopedics consulted from the ED. patient is going for surgery this afternoon EKG shows normal sinus rhythm, no acute ST-T changes No history or cardiac symptoms. Patient's vitals are stable. Admitting blood work unremarkable. Had a ACS NSQIP surgical risk calculator shows below average risk for serious complication (see medical chart for tobacco.) 2. Hypokalemia, potassium 2.8 on admission, replaced, recheck potassium was 4.5 Labs in am 3. Hypothyroidism, continue Synthroid 4. DVT prophylaxis?per orthopedics team I discussed and explained in details the various types of CODE STATUS-full code, DNR CCA, DNR CC. Patient chose to be full code and wants everything done to keep her alive in the event of a cardiopulmonary arrest. Time spent discussing CODE STATUS 16 minutes Charges/Coding Visit Charges Inpatient E&M: 62506 Init Hosp L3 Procedures Hospitalists Procedures: 53880 Advncd Care Plan 30 Min
--- NOTE | 2022-01-29 11:20 | RAD_ITS ---
STUDY: X-RAY - RIGHT FEMUR REASON FOR STUDY: Female, 76 years old. FALL TECHNIQUE: 4 view(s) of the femur. COMPARISON: None. FINDINGS: Comminuted intertrochanteric fracture with cephalic migration of the distal fracture fragment. Normal visualized soft tissue structure. RAD/Femur Min 2 Views IMPRESSION: Comminuted intertrochanteric fracture with cephalic migration of the distal fracture fragment. Electronically Signed: John Winn MD at 11:54 EST ,
[2022-01-29 12:01] LABS: Potassium 4.2 mmol/L (3.5-5.1)
--- NOTE | 2022-01-29 12:15 | PCM.CONS.GEN ---
Assessment & Plan Assessment/Plan (1) Closed intertrochanteric fracture of right hip: PLAN: Closed intertrochanteric fracture reverse obliquity with subtrochanteric extension and comminution Thorough discussion was had with the patient and her family in regards to her fracture pattern and recommended surgical fixation. Discussed cephalomedullary fixation and risk benefits alternatives of surgery including risk of bleeding infection nerve artery tissue damage need for further surgery continued pain intraoperative fracture, postoperative blood clot and expected postoperative course. Patient was seen by admitting hospitalist and was given the okay to proceed surgically she was given potassium which will be rechecked postoperatively. 2 g of Ancef on-call to the OR. HPI Consult Data Date of Consult: 01/29/22 HPI Narrative HPI Narrative: NICOLE HUGGINS, is a 76 F who presents after ground-level fall in her home while she was attempting to plunge her sink turned and landed on her right hip immediately had pain inability ambulate brought to the emergency room where x-rays demonstrated comminuted peritrochanteric fracture she denies any other complaints besides her right hip she is very uncomfortable. FORMERLY [facility] Medical History Abnormal mammogram of right breast Breast mass, right Contusion of right knee Family history of breast cancer Hemorrhoids Strain of right knee Thyroid disease Home Medications levothyroxine 75 mcg tablet 75 mcg PO DAILY 03/11/20 [History Last Taken Unknown] Allergy/AdvReac Type Severity Reaction Status Date / Time No Known Allergies Allergy Verified 01/29/22 07:40 Family History Mother Breast cancer Sister Breast cancer Sister Lymphoma Surgical History History of partial hysterectomy History of right breast biopsy (~03/2020) Social History Smoking Status: Former smoker second hand exposure: No alcohol intake: never substance use type: does not use Physical Exam Const alert, oriented x3 and no apparent distress General Appearance: cooperative Extremity Extremity Narrative: Patient is seated with her hip flexed on a pillow in her knee flexed over the pillow she has a positive logroll she has no tenderness around the knee she has no ecchymosis erythema or open wounds around the hip she is neurovascular intact right lower extremity. Lab / Micro Data Result Diagrams: 01/29/22 07:45 01/29/22 11:38 Labs: Laboratory Results - last 24 hr 01/29/22 07:45: WBC 8.0, RBC 4.29, Hgb 12.3, Hct 38.3, MCV 89.3, MCH 28.7, MCHC 32.1, RDW Std Deviation 42.6, RDW Coeff of Rosita 13.0, Plt Count 248, MPV 10.3, Immature Gran % (Auto) 0.400, Neut % (Auto) 73.1 H, Lymph % (Auto) 18.8 L, [place] % (Auto) 5.6, Eos % (Auto) 1.6, Baso % (Auto) 0.5, Absolute Neuts (auto) 5.9, Absolute Lymphs (auto) 1.51, Nucleated RBC % 0 01/29/22 07:45: PT 12.5, INR 1.0, APTT 25.6 01/29/22 07:45: Sodium 139, Potassium 2.8 L, Chloride 106, Carbon Dioxide 23.0, Anion Gap 10, BUN 14, Creatinine 0.81, Estim Creat Clear Calc 55.31, Est GFR (MDRD) Af Amer 88, Est GFR (MDRD) Non-Af 73, BUN/Creatinine Ratio 17.2, Glucose 104, Calcium 8.1 L, Total Bilirubin 0.50, AST 24, ALT 35, Alkaline Phosphatase 131 H, Total Protein 6.3 L, Albumin 3.3, Globulin 3.0, Albumin/Globulin Ratio 1.1 01/29/22 11:38: Potassium 4.2 Radiology Impression Chest X-Ray 01/29/22 07:57 IMPRESSION: Elevation of the right hemidiaphragm. No acute abnormality is seen. Electronically Signed: John Winn MD at 8:43 EST , Hip/Pelvis X-Ray 01/29/22 07:58 IMPRESSION: Comminuted right intertrochanteric fracture with cephalic migration of the distal fracture fragment. Electronically Signed: John Winn MD at 8:44 EST , Femur X-Ray 01/29/22 11:20 IMPRESSION: Comminuted intertrochanteric fracture with cephalic migration of the distal fracture fragment. Electronically Signed: John Winn MD at 11:54 EST ,
--- NOTE | 2022-01-29 13:00 | RAD_ITS ---
EXAM: XR RIGHT HIP WITH PELVIS WHEN PERFORMED, 2 OR 3 VIEWS CLINICAL INDICATION: ORIF RIGHT HIP TECHNIQUE: Two or three views of the right hip with pelvis when performed. This report was created using [employer] report generation technology. COMPARISON: None. FINDINGS: BONES/JOINTS: Intraoperative images show hardware placement across a right hip fracture. No destructive or sclerotic lesions. Note that overlapping bowel shadows may however obscure fine detail. Sacroiliac joint is unremarkable. No widening of the pubic symphysis. SOFT TISSUES: Unremarkable. No soft tissue swelling or gas. RAD/Hip Min 2 Views (Portable) IMPRESSION: ORIF of a right hip fracture. Electronically Signed: Portillo Johnson MD at 16:55 EST ,
[2022-01-29] MEDS: Cefazolin 2 GM in 0.9% Normal Saline 100 ML IV (13:13)
[2022-01-29] MEDS: Lactated Ringers 1,000 ML 125 ML IV ×2 (13:45→20:22)
[2022-01-29] MEDS: Bupivacaine 0.25%-Epi/Pf 1:200,000 10 ML (14:33)
--- NOTE | 2022-01-29 14:58 | OP.PCM_ITS ---
Operative Report Date of Procedure: 01/29/22 Preoperative diagnosis: Right hip reverse obliquity intertrochanteric fracture with subtrochanteric extension comminuted greater trochanter and lesser trochanter Postoperative diagnosis: Same Procedure: Cephalo-medullary fixation right hip Implants: Synthes long nail [id number], 90 mm helical blade, 42 mm screw Anesthesia: General EBL: 50 Complications: None Condition: Stable to PACU Indication for procedure: 76-year-old female status post ground-level fall at the sink trying to plunge her sink landed onto her right side immediately had pain inability ambulate did proceed to the emergency room department where. fracture demonstrated reverse obliquity intertrochanteric fracture with subtrochanteric extension she was met by the hospitalist and cleared she did receive IV potassium supplementation in the ER, risk benefits and alternatives were reviewed including risk of bleeding infection nerve, artery, bone, tissue damage, blood clot, RSD need for further surgery and continued pain. Procedure: Patient met in the preoperative holding area once again the operative extremity was identified by both patient and physician and was marked. Patient was met by anesthesia and IV was started she was brought back to the to the operating room anesthesia was started. She was then positioned on the fracture table all bony prominences were well-padded. She was then positioned with adduction internal rotation and traction and fluoroscopy was brought in to ensure that an adequate reduction could be performed. Patient was then prepped and draped in usual sterile fashion and timeout was called to ensure the proper patient procedure and extremity were being contemplated. Fluoroscopy was used to jolly the tip of the greater trochanter and a 3 fingerbreadth incision was made 2 finger breaths proximal to the tip of the greater trochanter. Was carried carried down through the skin and subcutaneous tissue as well as the gluteal fascia. A guide pin was then inserted through the tip of the greater trochanter directed towards the level of lesser trochanter this was checked in both AP and lateral projections. An opening reamer was performed. A guide pin was bent and placed down the femoral canal to the level of the superior patella then measured this and placed the corresponding length nail after flexible reamers were used to achieve cortical chatter and achieving 1.5 mm greater than the nail was chosen . following this was the insertion of the nail the appropriate height jig was used and a triple trocar sleeve was advanced to the skin and a stab incision was made at the trocar was inserted to the level of the bone and a guidepin was placed into the femoral neck and head checked on both AP and lateral projections. This was then measured and appropriately sized helical blade was inserted the nail was locked proximally to allow dynamic compression, the fracture was compressed and a locking screw was placed distally using perfect [place] technique. This was then drilled and measured under fluoroscopy and the appropriate size screw was inserted. Final AP and lateral projections were saved to the PACS system of the entire construct. the wounds were thoroughly irrigated the fascia was closed with #1 [id number] Vicryls followed by 2-0 Vicryl in the subcutaneous tissues followed by cedrick in the skin. 0.5% Marcaine with epinephrine was injected into the subcutaneous tissues dressing was applied form of Xeroform 4 x 4 ABD and Ioban tape. Patient nayla erated procedure well there is no intraoperative complications she was brought back to the PACU in stable condition.
--- NOTE | 2022-01-29 15:04 | PCM.PN.ORT ---
Subjective Subjective Postop orthopedic progress note in the PACU patient awake no acute distress comfortable Objective Data Objective Data Vital Signs: Vital Signs Temp Pulse Resp BP Pulse Ox O2 Del Method 97.0 F L 89 16 136/66 H 98 Room Air 01/29/22 12:11 01/29/22 12:11 01/29/22 12:11 01/29/22 11:06 01/29/22 12:11 01/29/22 12:11 Oxygen Delivery Method Room Air Weight: 185 lb 10.067 oz Body Mass Index (BMI) 29.9 Intake & Output: Intake and Output for Last 24 Hours 01/27/22 01/28/22 01/29/22 23:59 23:59 23:59 Intake Total 320 / 320 Output Total 300 / 300 Balance Lab / Micro Data Result Diagrams: 01/29/22 07:45 01/29/22 12:16 Labs: Laboratory Results - last 24 hr 01/29/22 07:45: WBC 8.0, RBC 4.29, Hgb 12.3, Hct 38.3, MCV 89.3, MCH 28.7, MCHC 32.1, RDW Std Deviation 42.6, RDW Coeff of Rosita 13.0, Plt Count 248, MPV 10.3, Immature Gran % (Auto) 0.400, Neut % (Auto) 73.1 H, Lymph % (Auto) 18.8 L, [place] % (Auto) 5.6, Eos % (Auto) 1.6, Baso % (Auto) 0.5, Absolute Neuts (auto) 5.9, Absolute Lymphs (auto) 1.51, Nucleated RBC % 0 01/29/22 07:45: PT 12.5, INR 1.0, APTT 25.6 01/29/22 07:45: Sodium 139, Potassium 2.8 L, Chloride 106, Carbon Dioxide 23.0, Anion Gap 10, BUN 14, Creatinine 0.81, Estim Creat Clear Calc 55.31, Est GFR (MDRD) Af Amer 88, Est GFR (MDRD) Non-Af 73, BUN/Creatinine Ratio 17.2, Glucose 104, Calcium 8.1 L, Total Bilirubin 0.50, AST 24, ALT 35, Alkaline Phosphatase 131 H, Total Protein 6.3 L, Albumin 3.3, Globulin 3.0, Albumin/Globulin Ratio 1.1 01/29/22 11:38: Potassium 4.2 01/29/22 12:16: Potassium 4.0 Radiography Diagnostic Testing: Radiology Impression Chest X-Ray 01/29/22 07:57 IMPRESSION: Elevation of the right hemidiaphragm. No acute abnormality is seen. Electronically Signed: John Winn MD at 8:43 EST , Hip/Pelvis X-Ray 01/29/22 07:58 IMPRESSION: Comminuted right intertrochanteric fracture with cephalic migration of the distal fracture fragment. Electronically Signed: John Winn MD at 8:44 EST , Femur X-Ray 01/29/22 11:20 IMPRESSION: Comminuted intertrochanteric fracture with cephalic migration of the distal fracture fragment. Electronically Signed: John Winn MD at 11:54 EST , Physical Exam Extremity Extremity Narrative: Dressings clean dry and intact compartments soft neurovascular intact EHL tibialis anterior gastrocsoleus intact sensation light touch palpable pedal pulses Assessment & Plan Assessment/Plan (1) Closed intertrochanteric fracture of right hip: PLAN: Plan Postop day #0 right hip reverse obliquity intertrochanteric fracture with subtrochanteric extension and comminution Status post cephalomedullary fixation long nail PT OT weightbearing as tolerated DVT prophylaxis Eliquis 2.5 mg twice daily for 3 weeks postop to begin 01/30/2022 7:00AM Thigh-high ALFREDA hose SCDs Pain control 5 to 10 mg of oxycodone every 4 hours as needed Dressings to be left on for 72 hours postop then may be removed prior to first shower at which time she may wash the incisions with antibacterial soap and warm water pat the incisions dry and replace with dry dressing and medical tape after this point dressing should be changed daily and wounds cleaned daily. Patient will likely benefit from transitional care before returning home Follow-up in the office in 2 weeks if she is in transitional care still at that point I can see her there for follow-up. Call with any questions or concerns
[2022-01-29] MEDS: Cefazolin 1 GM/50 ML BAG IV (15:45)
--- NOTE | 2022-01-29 16:26 | EKG12_ITS ---
Test Reason : POSTOP Blood Pressure : / mmHG Vent. Rate : 090 BPM Atrial Rate : 090 BPM P-R Int : 170 ms QRS Dur : 080 ms QT Int : 380 ms P-R-T Axes : 033 -16 038 degrees QTc Int : 464 ms Poor data quality, interpretation may be adversely affected Normal sinus rhythm Inferior infarct , age undetermined , cannot be excluded Abnormal ECG Confirmed by BERE WARE, BALWINDER ([id number]), news videotape editor LEANNE MURRAY ([id number]) on 02/03/2022 8:14:10 AM Referred By: NO Confirmed By:BALWINDER BLACKBURN MD
[2022-01-29 17:12] LABS: Anion Gap 6 (5-15); BUN 11 mg/dL (7-18); BUN/Creat Ratio 14.1 RATIO (10-20); Chloride 111 mmol/L (98-107); Creatinine, Serum 0.78 mg/dL (0.55-1.02); EST Glomerular Filtration Rate 76 mL/min (>60); Est Glom Filt Rate - Afr Amer 92 mL/min (>60); Glucose 231 mg/dL (74-106); Sodium Level 140 mmol/L (136-145); Troponin-I HS 6 pg/mL (3.0-54.0)
[2022-01-29] MEDS: oxyCODONE 5 MG Tablet 10 MG PO ×2 (18:22→22:24)
[2022-01-29] MEDS: Potassium Chloride Oral Tablet 20 MEQ 40 MEQ PO (20:18)
[2022-01-29] MEDS: Calcium Carbonate 500 MG Tablet PO (20:18)
[2022-01-29] MEDS: Acetaminophen 325 MG Tablet 650 MG PO (20:19)
[2022-01-30] VITALS (15 sets, daily range): BP systolic 116–161; BP diastolic 56–77; PULSE 77–110; RESP 16–18; TEMP 36.6–37.4; O2SAT 93–100
[2022-01-30] MEDS: Cefazolin 1 GM/50 ML BAG IV ×2 (00:09→08:16)
[2022-01-30] MEDS: Lactated Ringers 1,000 ML 125 ML IV ×2 (04:27→13:34)
[2022-01-30] MEDS: oxyCODONE 5 MG Tablet 10 MG PO ×4 (04:27→20:22)
[2022-01-30] MEDS: Levothyroxine 75 MCG Tablet PO (04:29)
[2022-01-30] MEDS: APIXABAN 2.5 MG TABLET PO ×2 (06:14→21:57)
[2022-01-30 06:44] LABS: Absolute Lymphocyte Count 0.79 X10^3/uL (0.83-4.51); Absolute Neutrophil Count 7.9 X10^3/uL (2.0-7.7); Basophil# 0.01 X10^3/uL; Basophil% 0.1 % (0-1); Hematocrit 27.1 % (37-47); Lymphocyte # 0.79 X10^3/ul (0.83-4.51); Lymphocyte % 8.3 % (19-41); Mean Corp Hgb Conc 33.2 g/dL (32-36); Mean Corpuscular Hgb 29.3 pg (27.0-32.0); Mean Corpuscular Volume 88.3 fL (81-99); Mean Platelet Vol. 10.5 fl (6.2-12.0); Monocyte# 0.87 X10^3/uL; Monocyte% 9.1 % (0-10); NRBC Flagged by Analyzer 0 % (0-5); Neutrophil # 7.86 X10^3/uL (2.7-7.7); Neutrophil % 82.3 % (47-70); Platelet Count 223 K/mm3 (150-450); RBC Distribution Width CV 13.2 % (11.6-14.6); RBC Distribution Width SD 42.7 fl (35.1-43.9); Red Blood Count 3.07 M/mm3 (4.2-5.4); White Blood Count 9.6 K/mm3 (4.4-11.0)
[2022-01-30 07:20] LABS: AST(SGOT) 22 U/L (15-37); Alanine Aminotransfer ALT/SGPT 26 U/L (13-56); Albumin, Serum 2.8 g/dL (3.2-5.0); Alkaline Phosphatase 99 U/L (45-117); Anion Gap 5 (5-15); BUN 13 mg/dL (7-18); BUN/Creat Ratio 17.7 RATIO (10-20); Calcium,Total 8.6 mg/dL (8.5-10.1); Chloride 109 mmol/L (98-107); Creatinine, Serum 0.73 mg/dL (0.55-1.02); EST Glomerular Filtration Rate 82 mL/min (>60); Est Glom Filt Rate - Afr Amer 99 mL/min (>60); Globulin 2.8 g/dL (2.2-4.2); Glucose 126 mg/dL (74-106); Potassium 4.3 mmol/L (3.5-5.1); Protein, Total 5.6 g/dL (6.4-8.2); Sodium Level 138 mmol/L (136-145)
--- NOTE | 2022-01-30 07:52 | PN.ORTHO_ITS ---
Subjective Subjective not feeling very well POD 1 right hip IM nail for IT hip fracture Objective Data Objective Data Vital Signs: Vital Signs Temp Pulse Resp BP Pulse Ox O2 Del Method O2 Flow Rate 98.2 F 87 16 126/72 H 97 Room Air 2 01/30/22 05:56 01/30/22 05:56 01/30/22 05:56 01/30/22 05:56 01/30/22 05:56 01/30/22 05:56 01/29/22 17:19 Oxygen Flow Rate (L/min) 2 Oxygen Delivery Method Room Air Weight: 171 lb 15.369 oz Body Mass Index (BMI) 29.9 Intake & Output: Intake and Output for Last 24 Hours 01/28/22 01/29/22 01/30/22 23:59 23:59 23:59 Intake Total 2097.08 / 2497.08 1650 / 1650 Output Total 450 / 450 675 / 675 Balance 1647.08 / 2047.08 975 / 975 Lab / Micro Data Attestation: I reviewed the patient's lab results. Result Diagrams: 01/30/22 05:54 01/30/22 05:54 Labs: Laboratory Results - last 24 hr 01/29/22 07:45: WBC 8.0, RBC 4.29, Hgb 12.3, Hct 38.3, MCV 89.3, MCH 28.7, MCHC 32.1, RDW Std Deviation 42.6, RDW Coeff of Rosita 13.0, Plt Count 248, MPV 10.3, Immature Gran % (Auto) 0.400, Neut % (Auto) 73.1 H, Lymph % (Auto) 18.8 L, [place] % (Auto) 5.6, Eos % (Auto) 1.6, Baso % (Auto) 0.5, Absolute Neuts (auto) 5.9, Absolute Lymphs (auto) 1.51, Nucleated RBC % 0 01/29/22 07:45: PT 12.5, INR 1.0, APTT 25.6 01/29/22 07:45: Sodium 139, Potassium 2.8 L, Chloride 106, Carbon Dioxide 23.0, Anion Gap 10, BUN 14, Creatinine 0.81, Estim Creat Clear Calc 55.31, Est GFR (MDRD) Af Amer 88, Est GFR (MDRD) Non-Af 73, BUN/Creatinine Ratio 17.2, Glucose 104, Calcium 8.1 L, Total Bilirubin 0.50, AST 24, ALT 35, Alkaline Phosphatase 131 H, Total Protein 6.3 L, Albumin 3.3, Globulin 3.0, Albumin/Globulin Ratio 1.1 01/29/22 11:38: Potassium 4.2 01/29/22 12:16: Potassium 4.0 01/29/22 16:50: Sodium 140, Potassium 4.0, Chloride 111 H, Carbon Dioxide 23.0, Anion Gap 6, BUN 11, Creatinine 0.78, Estim Creat Clear Calc 44.80, Est GFR (MDRD) Af Amer 92, Est GFR (MDRD) Non-Af 76, BUN/Creatinine Ratio 14.1, Glucose 231 H, Calcium 8.0 L, Troponin I High Sens 6 01/30/22 05:54: WBC 9.6, RBC 3.07 L, Hgb 9.0 L, Hct 27.1 L, MCV 88.3, MCH 29.3, MCHC 33.2, RDW Std Deviation 42.7, RDW Coeff of Rosita 13.2, Plt Count 223, MPV 10.5, Immature Gran % (Auto) 0.200, Neut % (Auto) 82.3 H, Lymph % (Auto) 8.3 L, [place] % (Auto) 9.1, Eos % (Auto) 0.0, Baso % (Auto) 0.1, Absolute Neuts (auto) 7.9 H, Absolute Lymphs (auto) 0.79 L, Nucleated RBC % 0 01/30/22 05:54: Sodium 138, Potassium 4.3, Chloride 109 H, Carbon Dioxide 24.0, Anion Gap 5, BUN 13, Creatinine 0.73, Estim Creat Clear Calc 44.80, Est GFR (MDRD) Af Amer 99, Est GFR (MDRD) Non-Af 82, BUN/Creatinine Ratio 17.7, Glucose 126 H, Calcium 8.6, Total Bilirubin 0.50, AST 22, ALT 26, Alkaline Phosphatase 99, Total Protein 5.6 L, Albumin 2.8 L, Globulin 2.8, Albumin/Globulin Ratio 1.0 Radiography Diagnostic Testing: Radiology Impression Chest X-Ray 01/29/22 07:57 IMPRESSION: Elevation of the right hemidiaphragm. No acute abnormality is seen. Electronically Signed: John Winn MD at 8:43 EST , Hip/Pelvis X-Ray 01/29/22 07:58 IMPRESSION: Comminuted right intertrochanteric fracture with cephalic migration of the distal fracture fragment. Electronically Signed: John Winn MD at 8:44 EST , Femur X-Ray 01/29/22 11:20 IMPRESSION: Comminuted intertrochanteric fracture with cephalic migration of the distal fracture fragment. Electronically Signed: John Winn MD at 11:54 EST , Hip X-Ray 01/29/22 13:00 IMPRESSION: ORIF of a right hip fracture. Electronically Signed: Portillo Johnson MD at 16:55 EST , Physical Exam Const alert, oriented x3 and no apparent distress General Appearance: cooperative Extremity Extremity Narrative: drsg dry, polar care on, nvi distal right LE normal sens D and P foot, DF and PF the foot, warm well perfused. thigh soft. Assessment & Plan Assessment/Plan (1) Closed intertrochanteric fracture of right hip: PLAN: Plan CCM per Dr. Salas plan. No concerns. Will leave management of draino hand irritation to hospitalist service.
[2022-01-30] MEDS: Acetaminophen 325 MG Tablet 650 MG PO ×2 (08:15→12:33)
[2022-01-30] MEDS: 0.9% Saline Lock 10 ML Syringe IV (08:19)
[2022-01-30] MEDS: Potassium Chloride Oral Tablet 20 MEQ 40 MEQ PO (08:20)
[2022-01-30] MEDS: Calcium Carbonate 500 MG Tablet PO ×3 (08:21→17:48)
[2022-01-30] MEDS: Cholecalciferol (VIT D3) 25 MCG TABLET (1,000 UNITS) PO (08:24)
--- NOTE | 2022-01-30 08:25 | DCINST_ITS ---
Discharge Instructions Dressing / Incision Additional Dressing/Incision Instructions:: PT OT weightbearing as tolerated DVT prophylaxis Eliquis 2.5 mg twice daily for 3 weeks postop to begin 01/30/2022 7:00AM Thigh-high ALFREDA Pain control 5 to 10 mg of oxycodone every 4 hours as needed Dressings to be left on for 72 hours postop then may be removed prior to first shower at which time she may wash the incisions with antibacterial soap and warm water pat the incisions dry and replace with dry dressing and medical tape after this point dressing should be changed daily and wounds cleaned daily. Follow-up in the office in 2 weeks if she is in transitional care still at that point I can see her there for follow-up. Call with any questions or concerns Follow Up Care Test Results: Test results from this visit will be discussed in further detail at your follow- up appointment, if applicable. Discharge Plan Admission Admit Date/Time: 01/29/22 10:54 Attending Provider: Rossy Saleem Primary Care Provider: Lucio Ayoub Chi Consulting Providers: Braxton Salas Discharge Orders/Prescriptions Prescriptions: No Action levothyroxine 75 mcg tablet 75 mcg PO DAILY Referrals / Follow Up: Lucio Ayoub Chi, MD [Primary Care Provider] -
--- NOTE | 2022-01-30 10:27 | PN.HOSP_ITS ---
Subjective Subjective Follow-up on acute right hip fracture: Patient was seen and examined. She complains of severe pain in her right hip. She did not sleep at all last night. Objective Data Objective Data Vital Signs: Vital Signs Temp Pulse Resp BP Pulse Ox O2 Del Method O2 Flow Rate 98.3 F 82 16 121/56 H 95 Room Air 2 01/30/22 08:05 01/30/22 08:05 01/30/22 08:05 01/30/22 08:05 01/30/22 08:05 01/30/22 08:29 01/29/22 17:19 Oxygen Flow Rate (L/min) 2 Oxygen Delivery Method Room Air Weight: 78 kg Body Mass Index (BMI) 29.9 Intake & Output: Intake and Output for Last 24 Hours 01/28/22 01/29/22 01/30/22 23:59 23:59 23:59 Intake Total 2097.08 / 2497.08 1650 / 1650 Output Total 450 / 450 675 / 675 Balance 1647.08 / 2047.08 975 / 975 Lab / Micro Data Result Diagrams: 01/30/22 05:54 01/30/22 05:54 Labs: Laboratory Results - last 24 hr 01/29/22 11:38: Potassium 4.2 01/29/22 12:16: Potassium 4.0 01/29/22 16:50: Sodium 140, Potassium 4.0, Chloride 111 H, Carbon Dioxide 23.0, Anion Gap 6, BUN 11, Creatinine 0.78, Estim Creat Clear Calc 44.80, Est GFR (MDRD) Af Amer 92, Est GFR (MDRD) Non-Af 76, BUN/Creatinine Ratio 14.1, Glucose 231 H, Calcium 8.0 L, Troponin I High Sens 6 01/30/22 05:54: WBC 9.6, RBC 3.07 L, Hgb 9.0 L, Hct 27.1 L, MCV 88.3, MCH 29.3, MCHC 33.2, RDW Std Deviation 42.7, RDW Coeff of Rosita 13.2, Plt Count 223, MPV 10.5, Immature Gran % (Auto) 0.200, Neut % (Auto) 82.3 H, Lymph % (Auto) 8.3 L, [place] % (Auto) 9.1, Eos % (Auto) 0.0, Baso % (Auto) 0.1, Absolute Neuts (auto) 7.9 H, Absolute Lymphs (auto) 0.79 L, Nucleated RBC % 0 01/30/22 05:54: Sodium 138, Potassium 4.3, Chloride 109 H, Carbon Dioxide 24.0, Anion Gap 5, BUN 13, Creatinine 0.73, Estim Creat Clear Calc 44.80, Est GFR (MDRD) Af Amer 99, Est GFR (MDRD) Non-Af 82, BUN/Creatinine Ratio 17.7, Glucose 126 H, Calcium 8.6, Total Bilirubin 0.50, AST 22, ALT 26, Alkaline Phosphatase 99, Total Protein 5.6 L, Albumin 2.8 L, Globulin 2.8, Albumin/Globulin Ratio 1.0 Radiography Diagnostic Testing: Radiology Impression Femur X-Ray 01/29/22 11:20 IMPRESSION: Comminuted intertrochanteric fracture with cephalic migration of the distal fracture fragment. Electronically Signed: John Winn MD at 11:54 EST , Hip X-Ray 01/29/22 13:00 IMPRESSION: ORIF of a right hip fracture. Electronically Signed: Portillo Johnson MD at 16:55 EST , Physical Exam Narrative Physical exam: General: Alert, Oriented x3, Cooperative, on 2 L of oxygen HEENT: Atraumatic Oral: Moist Mucosa Neck: Supple Lungs: Diminished to auscultation Cardiovascular: HS I+II, regular, no murmurs Abdomen: Bowel Sounds Present, Soft, Non Tender Extremities: No edema Skin: No rashes, No breakdown Neurological: Grossly intact Psych/Mental Status: Appropriate Assessment & Plan Assessment/Plan (1) Closed intertrochanteric fracture of right hip: (2) Fall: PLAN: Plan 1. Postop day #1 status post cephalomedullary nailing for acute right comminuted hip fracture with displacement of the distal fragment, status post mechanical fall Continue with scheduled Tylenol, as needed oxycodone and morphine Continue with orthopedic surgery recommendations 2. Hypokalemia, resolved 3. Hypothyroidism, continue Synthroid 4. DVT prophylaxis?on apixaban Charges/Coding Visit Charges Inpatient E&M: 75351 Subs Hosp L2
--- NOTE | 2022-01-30 11:13 | CASEMGMT ---
Social Work SW met w/pt in room to review prior level of function and anticipated discharge plan. PCP: Dr. Ayoub Specialists: Dr. John, surgeon Pharmacy: [facility] in [place] Insurance: [facility] Medicare LNOK: Son KENAN Shah Living arrangements/Prior level of function: Pt lives home alone in a one story home with a basement. Pt is normally is independent with ADLs. Pt does her own cooking, cleaning, medications, personal care. Pt drives. She states she just got a new car. LW/POA: Pt states has not completed LW/POA forms, she would like to complete them today as time allows, and would like to put her son as POA. DME: Pt uses no DME at baseline SNF/HHC: No history of SNF or HHC. SW spoke w/pt about discharge plan from hospital. Pt is agreeable to SNF at discharge. SW provided to pt a list of senior care facilities, that can meet pt's medical needs, complete with quality and resource use data in pt's insurance network and preferred geographic area, complete with quality and resource use data. Pt states would like to go to TCU. SW explained that TCU may not have any beds, the SW on Tuesday will need to follow up. SW asked pt to choose other facilities off the list in the event that TCU does not have a bed. Pt states understanding. Plan: SNF, facility TBD. JOHNY Cheng
[2022-01-30] MEDS: Ondansetron 4 MG/2 ML Vial IV (14:08)
[2022-01-30] MEDS: Ensure Plus High Protein 120 ML LIQUID PO ×2 (17:48→21:57)
[2022-01-30] MEDS: Acetaminophen 500 MG Tablet 1000 MG PO (21:57)
[2022-01-31] VITALS (9 sets, daily range): BP systolic 134–141; BP diastolic 50–61; PULSE 84–105; RESP 18; TEMP 36.6–36.9; O2SAT 94–99
[2022-01-31] MEDS: Levothyroxine 75 MCG Tablet PO (06:00)
[2022-01-31] MEDS: Acetaminophen 500 MG Tablet 1000 MG PO ×3 (06:00→21:48)
[2022-01-31 06:40] LABS: Hematocrit 23.8 % (37-47); Hemoglobin 7.3 g/dL (12.0-15.0); Mean Corp Hgb Conc 30.7 g/dL (32-36); Mean Corpuscular Hgb 28.5 pg (27.0-32.0); Platelet Count 171 K/mm3 (150-450); RBC Distribution Width CV 13.6 % (11.6-14.6); RBC Distribution Width SD 45.3 fl (35.1-43.9); Red Blood Count 2.56 M/mm3 (4.2-5.4); White Blood Count 7.5 K/mm3 (4.4-11.0)
[2022-01-31 07:54] LABS: AST(SGOT) 21 U/L (15-37); Alanine Aminotransfer ALT/SGPT 21 U/L (13-56); Albumin, Serum 2.5 g/dL (3.2-5.0); Alkaline Phosphatase 89 U/L (45-117); Anion Gap 6 (5-15); BUN 16 mg/dL (7-18); BUN/Creat Ratio 19.2 RATIO (10-20); Chloride 112 mmol/L (98-107); Creatinine, Serum 0.83 mg/dL (0.55-1.02); EST Glomerular Filtration Rate 71 mL/min (>60); Est Glom Filt Rate - Afr Amer 86 mL/min (>60); Estimated Creatinine Clearance 53.98 ml/min; Globulin 2.6 g/dL (2.2-4.2); Glucose 107 mg/dL (74-106); Potassium 4.9 mmol/L (3.5-5.1); Protein, Total 5.1 g/dL (6.4-8.2); Sodium Level 140 mmol/L (136-145)
[2022-01-31 08:10] LABS: Platelet Count 143 K/mm3 (150-450); RET-HE 31.8 pg (30-35); Reticulocyte Count 2.09 % (0.5-1.5)
[2022-01-31] MEDS: oxyCODONE 5 MG Tablet 10 MG PO ×2 (08:25→16:46)
[2022-01-31] MEDS: Calcium Carbonate 500 MG Tablet PO ×3 (08:25→16:47)
[2022-01-31 08:35] LABS: Ferritin 122 ng/mL (8-252); Iron 48 ug/dL (50-170); Iron Binding Capacity,Total 385 ug/dL (250-450); PERCENT IRON SATURATION 12.5 % (15.0-55.0)
[2022-01-31] MEDS: APIXABAN 2.5 MG TABLET PO ×2 (10:03→21:48)
[2022-01-31] MEDS: Cholecalciferol (VIT D3) 25 MCG TABLET (1,000 UNITS) PO (10:04)
[2022-01-31] MEDS: Ensure Plus High Protein 120 ML LIQUID PO ×3 (10:06→21:48)
--- NOTE | 2022-01-31 10:12 | PCM.PN.HOSP ---
Subjective Subjective Follow-up on acute right hip fracture: Patient was seen and examined.? She complains of significant pain in the right hip. Denies any chest pain or dizziness. Objective Data Objective Data Vital Signs: Vital Signs Temp Pulse Resp BP Pulse Ox O2 Del Method O2 Flow Rate 98.2 F 92 18 134/54 H 97 Room Air 2 01/31/22 08:23 01/31/22 08:23 01/31/22 08:23 01/31/22 08:23 01/31/22 08:23 01/31/22 08:23 01/31/22 06:00 Oxygen Flow Rate (L/min) 2 Oxygen Delivery Method Room Air Weight: 80.9 kg Body Mass Index (BMI) 29.9 Intake & Output: Intake and Output for Last 24 Hours 01/29/22 01/30/22 01/31/22 23:59 23:59 23:59 Intake Total 2097.08 / 2497.08 4550.00 / 5050.00 700 / 700 Output Total 450 / 450 1200 / 1200 450 / 450 Balance 1647.08 / 2047.08 3350.00 / 3850.00 250 / 250 Lab / Micro Data Result Diagrams: 01/31/22 06:03 01/31/22 06:03 Labs: Laboratory Results - last 24 hr 01/31/22 06:03: WBC 7.5, RBC 2.56 L, Hgb 7.3 L, Hct 23.8 L, MCV 93.0 D, MCH 28.5, MCHC 30.7 L D, RDW Std Deviation 45.3 H, RDW Coeff of Rosita 13.6, Plt Count 171, MPV 11.0 01/31/22 06:03: Sodium 140, Potassium 4.9, Chloride 112 H, Carbon Dioxide 22.0, Anion Gap 6, BUN 16, Creatinine 0.83, Estim Creat Clear Calc 53.98, Est GFR (MDRD) Af Amer 86, Est GFR (MDRD) Non-Af 71, BUN/Creatinine Ratio 19.2, Glucose 107 H, Calcium 9.0, Total Bilirubin 0.40, AST 21, ALT 21, Alkaline Phosphatase 89, Total Protein 5.1 L, Albumin 2.5 L, Globulin 2.6, Albumin/Globulin Ratio 1.0 01/31/22 06:03: Retic Count 2.09 H, Immature Retic Fraction 11.90, Retic Hgb Equivalent 31.8 01/31/22 06:03: Iron 48 L, TIBC 385, Iron Saturation 12.5 L, Ferritin 122 Physical Exam Narrative Physical exam: General: Alert, Oriented x3, Cooperative, off oxygen HEENT: Atraumatic Oral: Moist Mucosa Neck: Supple Lungs: Diminished to auscultation Cardiovascular: HS I+II, regular, no murmurs Abdomen: Bowel Sounds Present, Soft, Non Tender Extremities: No edema Skin: No rashes, No breakdown Neurological: Grossly intact Psych/Mental Status: Appropriate Assessment & Plan Assessment/Plan (1) Closed intertrochanteric fracture of right hip: (2) Fall: PLAN: Plan 1. Postop day #2 status post cephalomedullary nailing for acute right comminuted hip fracture with displacement of the distal fragment, status post mechanical fall Continue with scheduled Tylenol, as needed oxycodone and morphine Continue with orthopedic surgery recommendations 2. Anemia, drop in hemoglobin from 12.3 on admission to 7.3 Likely secondary to acute blood loss versus hemodilution Iron stores show iron deficiency anemia We will give IV Venofer, recheck H&H and repeat labs in the morning 3. Hypokalemia, resolved 4. Hypothyroidism, continue Synthroid 5. DVT prophylaxis?on apixaban Charges/Coding Visit Charges Inpatient E&M: 10467 Subs Hosp L2
[2022-01-31 12:05] LABS: Hematocrit 22.8 % (37-47); Hemoglobin 7.5 g/dL (12.0-15.0)
[2022-01-31] MEDS: 0.9% Saline Lock 10 ML Syringe IV ×4 (16:46→20:27)
[2022-01-31] MEDS: Morphine 2 MG/ML Syringe IV (20:27)
[2022-02-01] VITALS (13 sets, daily range): BP systolic 129–155; BP diastolic 53–90; PULSE 87–101; RESP 16–18; TEMP 36.7–37.1; O2SAT 93–98
[2022-02-01] MEDS: oxyCODONE 5 MG Tablet 10 MG PO ×4 (01:26→16:30)
[2022-02-01] MEDS: Acetaminophen 500 MG Tablet 1000 MG PO ×2 (05:20→13:06)
[2022-02-01] MEDS: Levothyroxine 75 MCG Tablet PO (05:20)
[2022-02-01 05:33] LABS: Hematocrit 21.8 % (37-47); Hemoglobin 6.9 g/dL (12.0-15.0); Mean Corp Hgb Conc 31.7 g/dL (32-36); Mean Corpuscular Hgb 29.4 pg (27.0-32.0); Mean Corpuscular Volume 92.8 fL (81-99); Mean Platelet Vol. 10.3 fl (6.2-12.0); Platelet Count 186 K/mm3 (150-450); RBC Distribution Width CV 13.6 % (11.6-14.6); RBC Distribution Width SD 45.5 fl (35.1-43.9); Red Blood Count 2.35 M/mm3 (4.2-5.4); White Blood Count 6.9 K/mm3 (4.4-11.0)
[2022-02-01 06:17] LABS: ALB/GLOB Ratio 0.9 RATIO (0.9-2.4); AST(SGOT) 27 U/L (15-37); Alanine Aminotransfer ALT/SGPT 21 U/L (13-56); Albumin, Serum 2.4 g/dL (3.2-5.0); Alkaline Phosphatase 94 U/L (45-117); Anion Gap 4 (5-15); BUN 13 mg/dL (7-18); BUN/Creat Ratio 18.8 RATIO (10-20); Calcium,Total 8.8 mg/dL (8.5-10.1); Chloride 108 mmol/L (98-107); Creatinine, Serum 0.69 mg/dL (0.55-1.02); EST Glomerular Filtration Rate 87 mL/min (>60); Est Glom Filt Rate - Afr Amer 106 mL/min (>60); Globulin 2.7 g/dL (2.2-4.2); Glucose 102 mg/dL (74-106); Potassium 4.2 mmol/L (3.5-5.1); Protein, Total 5.1 g/dL (6.4-8.2); Sodium Level 140 mmol/L (136-145)
[2022-02-01] MEDS: APIXABAN 2.5 MG TABLET PO (08:01)
[2022-02-01] MEDS: Calcium Carbonate 500 MG Tablet PO ×3 (08:01→16:32)
[2022-02-01] MEDS: Cholecalciferol (VIT D3) 25 MCG TABLET (1,000 UNITS) PO (08:01)
[2022-02-01] MEDS: Ensure Plus High Protein 120 ML LIQUID PO ×3 (08:03→16:32)
--- NOTE | 2022-02-01 08:50 | CASEMGMT ---
Social Work This SW checked with Brorene at TCU this morning. Catherine has open bed,accepted pt and started precert for pt this morning. PLAN: TCU, pending precert. OLAF Campuzano
--- NOTE | 2022-02-01 09:52 | CASEMGMT ---
Addendum entered by Shira Vargas 02/01/22 11:09: [facility] from [facility] informed this SW that precert has been obtained for pt. SW informed Dr. Crawford. Dr. Crawford inquired if pt had transfusion and HGB reviewed. VALERIE informed that blood has still not been sent up as of yet. Dr. Crawford stated pt would not discharge until transfusion completed and labs reviewed. VALERIE informed Catherine of plan. OLAF Campuzano Original Note: Social work SW in to pt room to inform of bed availability at TCU and that insurance auth has been started. Pt voiced understanding and showed excitement. Pt informed of wait period for insurance and understanding this could take time to be approved. PLAN: TCU, precert OLAF Campuzano
--- NOTE | 2022-02-01 11:39 | TREXTCAR_ITS ---
Diet Diet Order/Speech Therapy: 01/29/22 16:20 Diet: Regular - General Food consistency:: Regular Liquid Consistency:: Regular/Thin Routine Orders/Code Status Suppository Frequency: Daily PRN O2 Frequency: PRN Keep PO Greater than or Equal to (%): 92 Routine Lab Work: CBC and BMP Code Status: Full Code Wound(s) right hip: Wound Type: Surgical Incision b/l hands and forearm: Wound Type: SCATTERED REDDENED AREAS left wrist: Wound Type: Abrasion Therapies Weight Bearing: Weight bearing as tolerated Extremity Affected:: Right Lower Physical Therapy: Eval and Treat Occupational Therapy: Eval and Treat Problem/Diagnosis (1) Closed intertrochanteric fracture of right hip: Status: Acute Code(s): S72.141A - Displaced intertrochanteric fracture of right femur, initial encou nter for closed fracture (2) Fall: Status: Acute Code(s): W19.XXXA - Unspecified fall, initial encounter Allergies/Procedures Done in Hospital Allergies No Known Allergies Allergy (Verified 01/29/22 07:40) Type of Care/Length of Stay Estimated LOS: Convalescent Care Less Than 30 days Type of Care Needed: Skilled Rehab Potential: Good Prognosis: Good Additional Orders/Day of Discharge Day of Discharge: 02/01/22 Dietary and Speech Recommendations Dietitian Recommendations/Changes: regular diet as tolerated; will add 120mL ensure plus high protein 4x/day w/ medpass for additional calories/protein if consumed. Discharge Plan Admission Admit Date/Time: 01/29/22 10:54 Attending Provider: Trina Crawford Primary Care Provider: Lucio Ayoub Chi Consulting Providers: Braxton Salas ; oRssy Saleem Discharge Orders/Prescriptions Prescriptions: No Action levothyroxine 75 mcg tablet 75 mcg PO DAILY Referrals / Follow Up: Lucio Ayoub Chi, MD [Primary Care Provider] -
--- NOTE | 2022-02-01 11:50 | PCM.DC.SUM ---
Providers Date of Admission: 01/29/22 Date of Discharge: 02/01/22 Primary Care Physician: Dr. Lucio Ayoub MD Consultations 01/29/22 12:25 Consult: Orthopedics Routine Consulting Provider: Braxton Salas Reason for Consult: Right hip fracture EMERGENT Consult: No MD Notified: Yes Date Notified: 01/29/22 Time Notified: 12:25 Method of Notification: spoke to Dr. Saleem Reason For Visit: HIP FRACTURE/HYPOKALEMIA Diagnosis Discharge Diagnosis (1) Closed intertrochanteric fracture of right hip: Status: Acute Code(s): S72.141A - Displaced intertrochanteric fracture of right femur, initial encounter for closed fracture (2) Fall: Status: Acute Code(s): W19.XXXA - Unspecified fall, initial encounter Medications at Discharge Home Medications levothyroxine 75 mcg tablet 75 mcg PO DAILY 03/11/20 acetaminophen 500 mg tablet 1,000 mg PO TID #0 tabs 02/01/22 apixaban 5 mg tablet (Eliquis) 2.5 mg PO BID #0 tabs 02/01/22 ascorbic acid (vitamin C) 500 mg tablet (Vitamin C) 500 mg PO DAILY #30 tabs 02/01/22 ergocalciferol (vitamin D2) 1,250 mcg (50,000 unit) capsule 1,250 mcg PO QWEEK #6 caps 02/01/22 ferrous sulfate 325 mg (65 mg iron) tablet (Iron (ferrous sulfate)) 325 mg PO BID #60 tabs 02/01/22 food supplemt, lactose-reduced 0.08 gram-1.5 kcal/mL oral liquid (Ensure Plus High Protein) 120 ml PO 4X/DAY #237 mL 02/01/22 oxycodone 5 mg tablet 5 mg PO Q6H PRN pain 1 day #4 tabs 02/01/22 Hospital Course Operations - (Cephalomedullary nail fixation of the right hip) Procedures EKG Summary of Care Provided Minutes Spent on Discharge: 37 Hospital Course: Mrs. Bond is a 76-year-old white female who presented to the emergency department at [facility] on 02/01/2022 after sustaining a mechanical fall at which time she was trying to clear her sink with Drano and move backwards when the drain was apparently working and slipped and fell. After her fall she suffered from right hip pain so she presented to the emergency department. In the ER ED, her blood pressure was initially 160/81, improved to 136/66, heart rate was 84, respiratory rate 16, temperature 96.8 F, she was saturating 99% on room air. Her admitting blood work was essentially unremarkable except for potassium of 2.8.? This was replaced.?X-ray of the chest showed elevation of the right hemidiaphragm.? X-ray of the hip showed comminuted right intertrochanteric fracture with cephalic migration of the distal fracture fragment. She was admitted to the medical floor and consultation orthopedic surgery was placed. She was able to be taken to the OR later that afternoon on 01/29/2022 at which time a cephalomedullary nail was placed for fixation of her fracture. Postoperatively it was recommended that she be weightbearing as tolerated with physical and Occupational Therapy, DVT prophylaxis with Eliquis 2.5 mg p.o. twice daily for 3 weeks was to be continued with a start date of 01/30/2022, thigh-high ALFREDA hose and as needed oxycodone for pain control. Her postoperative dressing was to be placed and left on for 72 hours then removed prior to her first shower at which time she was to wash the incision with antibacterial soap and warm water and replace with a dry dressing and medical tape. Dr. Gimenez wanted to follow-up with the patient in 2 weeks and indicated that he could follow-up at TCU if that was the plan for discharge. Vitamin D level was obtained and found to be low at 24.9. We subsequently placed her on ergocalciferol 50,000 units weekly for 6 weeks at which time she should have a follow-up vitamin D level and be maintained on 50,000 units until her level is greater than 30. It appears that she has been low previously as well. I would recommend outpatient DEXA scan be pursued if not been done previously. Her hemoglobin on presentation was normal at 12.3 however she dropped throughout her hospitalization to a low of 6.9 on the day of discharge. She was transfused with 1 unit packed red blood cells and follow-up hemoglobin was noted to be 8.9. She was also >6 L + for the hospitalization so I suspect this drop was related to injury and surgery plus hemodilution with IVF. I do recommend she have a repeat CBC within the next 2 to 5 days to demonstrate stability. She had no obvious signs of blood loss during her hospital course and reported that her stool was brown. Iron studies were done and it does appear she has some iron deficiency. She was given 2 doses of IV iron and placed on oral iron twice daily along with vitamin C supplementation for improved absorption on the day of discharge. She was discharged to the TCU in stable condition for ongoing physical and Occupational Therapy until she can transition to home. Patient was feeling well on the day of discharge and was anxious to start her rehab. Discharge diagnoses: Acute comminuted subtrochanteric hip fracture status post mechanical fall Vitamin D deficiency Iron deficiency Acute anemia Hypothyroidism Physical Exam Narrative Patient does report a little bit of fatigue and decreased energy. We did discuss her anemia and that we would be transfusing a unit of blood. She denies any blood in her stools or any dark tarry looking stools. Overall she states she is feeling well and having minimal hip pain Const alert, oriented x3, healthy appearing and well nourished Constitutional Narrative: Overweight, elderly, white female sitting up in a chair at the bedside, therapy services at bedside, patient appears well and nontoxic General Appearance: cooperative, comfortable, well kempt and well developed Orientation / Consciousness: awake, oriented to person, oriented to place and oriented to time Exam Limitations: no limitations Nutritional Appearance: overweight HEENT hearing grossly normal bilaterally and moist oral mucous membranes HEENT Narrative: Mallampati 2-3, no thrush Eyes PERRL and EOMs intact bilaterally Eyes Narrative: Mildly pale conjunctiva bilaterally, no scleral icterus Neck no lymphadenopathy and supple Neck Narrative: Trachea midline, no thyroid enlargement Resp normal respiratory effort, no retractions, no use of accessory muscles and clear to auscultation bilaterally Auscultation: Negative for crackles, rales, rhonchi or wheezes Cardio regular rate, regular rhythm, S1 normal heart sound, S2 normal heart sound, no murmurs, no rub, no gallops and no clicks GI normal to inspection, nondistended, normoactive bowel sounds, soft to palpation, non-tender and non-distended Extremity no clubbing, cyanosis or edema Extremity Narrative: Postoperative dressing right hip clean dry and intact, 2+ pedal pulses Skin no rashes or lesions noted, no wounds, skin turgor normal and no jaundice Skin Narrative: See above for right hip postoperative incision Neuro oriented x3, CN's II-XII intact bilaterally, no focal motor deficits and no sensory deficits noted Neuro Narrative: Decreased movement right lower extremity secondary to pain however no focal deficits Speech: speech normal Psych affect normal Psych Narrative: Very pleasant and appropriately interactive Weight / BMI Weight Weight: 78.3 kg Body Mass Index (BMI) 29.9 ABG / Lab / Microbiology Data Result Diagrams: 02/01/22 19:00 02/01/22 04:39 Laboratory: Laboratory Results - last 24 hr 01/31/22 11:42: Hgb 7.5 L, Hct 22.8 L 02/01/22 04:39: WBC 6.9, RBC 2.35 L, Hgb 6.9 L, Hct 21.8 L, MCV 92.8, MCH 29.4, MCHC 31.7 L, RDW Std Deviation 45.5 H, RDW Coeff of Rosita 13.6, Plt Count 186, MPV 10.3 02/01/22 04:39: Sodium 140, Potassium 4.2, Chloride 108 H, Carbon Dioxide 28.0, Anion Gap 4 L, BUN 13, Creatinine 0.69, Estim Creat Clear Calc 44.80, Est GFR (MDRD) Af Amer 106, Est GFR (MDRD) Non-Af 87, BUN/Creatinine Ratio 18.8, Glucose 102, Calcium 8.8, Total Bilirubin 0.50, AST 27, ALT 21, Alkaline Phosphatase 94, Total Protein 5.1 L, Albumin 2.4 L, Globulin 2.7, Albumin/Globulin Ratio 0.9 02/01/22 09:34: Blood Type AB POSITIVE, Antibody Screen NEGATIVE, Crossmatch See Detail D/C Instructions Additional Dressing/Incision Instructions: PT OT weightbearing as tolerated DVT prophylaxis Eliquis 2.5 mg twice daily for 3 weeks postop to begin 01/30/2022 7:00AM Thigh-high ALFREDA Pain control 5 to 10 mg of oxycodone every 4 hours as needed Dressings to be left on for 72 hours postop then may be removed prior to first shower at which time she may wash the incisions with antibacterial soap and warm water pat the incisions dry and replace with dry dressing and medical tape after this point dressing should be changed daily and wounds cleaned daily. Follow-up in the office in 2 weeks if she is in transitional care still at that point I can see her there for follow-up. Call with any questions or concerns Meaningful Use Info Meaningful Use Diagnoses (Choose all that apply): None applicable Discharge Plan Admission Admit Date/Time: 01/29/22 10:54 Primary Reason for Your Visit: Mechanical fall with resultant right hip pain Attending Provider: Trina Crawford Primary Care Provider: Lucio Ayoub Chi Consulting Providers: Braxton Salas ; Rossy Saleem Discharge Orders/Prescriptions Prescriptions: New Eliquis 5 mg Tablet 2.5 mg PO BID Qty: 0 0RF Rx Instructions: For total of 3 weeks starting on 01/30/2022 Ensure Plus High Protein 0.08 gram-1.5 kcal/mL Liquid 120 ml PO 4X/DAY Qty: 237 0RF acetaminophen 500 mg Tablet 1,000 mg PO TID Qty: 0 0RF ferrous sulfate [Iron (ferrous sulfate)] 325 mg (65 mg iron) tablet 325 mg PO BID Qty: 60 0RF ascorbic acid (vitamin C) [Vitamin C] 500 mg tablet 500 mg PO DAILY Qty: 30 0RF oxycodone 5 mg tablet 5 mg PO Q6H PRN (Reason: pain) 1 Days Qty: 4 0RF ergocalciferol (vitamin D2) 1,250 mcg (50,000 unit) capsule 1,250 mcg PO QWEEK Qty: 6 0RF Rx Instructions: x 6 weeks Continued levothyroxine 75 mcg tablet 75 mcg PO DAILY Referrals / Follow Up: Braxton Salas DO [Med Staff - Active Staff] - Within 2 Weeks Lucio Ayoub Chi, MD [Primary Care Provider] - Within 1 Month Disposition Disposition (needs filled in before D/C Order can be placed): [facility] Facility Charges/Coding Visit Charges Inpatient E&M: 15146 SNF Disch >30 Min
--- NOTE | 2022-02-01 12:27 | PHA.DC.MR ---
Pharmacy Service has performed discharge medication reconciliation for this patient. The patient's discharge medication list was reviewed for discrepancies and discrepancies were resolved. Home Medications levothyroxine 75 mcg tablet 75 mcg PO DAILY 03/11/20 acetaminophen 500 mg tablet 1,000 mg PO TID #0 tabs 02/01/22 apixaban 5 mg tablet (Eliquis) 2.5 mg PO BID #0 tabs 02/01/22 ascorbic acid (vitamin C) 500 mg tablet (Vitamin C) 500 mg PO DAILY #30 tabs 02/01/22 ergocalciferol (vitamin D2) 1,250 mcg (50,000 unit) capsule 1,250 mcg PO QWEEK #6 caps 02/01/22 ferrous sulfate 325 mg (65 mg iron) tablet (Iron (ferrous sulfate)) 325 mg PO BID #60 tabs 02/01/22 food supplemt, lactose-reduced 0.08 gram-1.5 kcal/mL oral liquid (Ensure Plus High Protein) 120 ml PO 4X/DAY #237 mL 02/01/22 oxycodone 5 mg tablet 5 mg PO Q6H PRN pain 1 day #4 tabs 02/01/22
--- NOTE | 2022-02-01 13:52 | CASEMGMT ---
Addendum entered by Shira Vargas 02/01/22 14:04: This SW updated VALERIE [facility] at [facility] of need for pt's sisters information to be included in AD documents. Tabitha voiced understanding. To check with pt upon admittance to TCU for correct contact info. Original Note: Social Work SW in to inform pt of insurance auth for TCU. Pt voiced understanding. SW also discussed AD with pt. Pt reported to weekend SW wanting AD completed. Pt agreeable when this SW discussed and wanted to name son, Jair Bond as agent. Pt named sister, Gabriela Segovia, as alternate. Pt unable to provide contact information for alternate agent. All other areas of HCPOA documents completed. Pt declined to make living will. Stated would like all measures used to keep herself alive. SW offered education on LW. Pt stated I've heard of people coming out of comas 10-15 years later. I don't want them to pull the plug on me. Charge nurse Courtney informed this SW that pt will not discharge to TCU until transfusion is complete and labs are drawn three hours later. SW updated Catherine at [facility]CU of plan for discharge. SW reminded pt's nurse, Minnie, that pt will need covid test before d/c to TCU. Minnie voiced understanding. Covid test to be completed after labs come back. SW faxed all discharge orders to TCU. Pt reports will inform family of plan to transfer to TCU once it is confirmed following HGB results are returned. Dispo: TCU, skilled level of care, after medical procedures are completed. OLAF Campuzano
--- NOTE | 2022-02-01 14:41 | CHAPLAIN ---
Type of Pastoral Visit _x__ Initial Visit ___ Follow-up Visit ___ On-call Visit ___ General Patient Visit ___ Spiritual Assessment ___ Family Conference ___ Bereavement ___ Rapid Response ___ Code Blue ___ Other (describe below) Pastoral Care Referral From _x__ Patient ___ Family ___ Nurse ___ Physician ___ Field Sampling Technician ___ Optical Technician ___ Other (describe below) Sacrament/Intervention _x__ Active listening ___ Anointing ___ Islam ___ Bereavement ___ Communion ___ Jaz exploration ___ ___ Life review _x__ Prayer ___ Reconciliation ___ Sacrament of Sick _x__ Supportive presence ___ Wedding ___ Other (describe below) Pastoral Comments patient reports her situation and plan to go to TCU for follow up; pt has some humor at herself as she is laughing at times throughout the visit; pt states her only request is for prayer for an end to the pain; pt will welcome future visits in the TCU
[2022-02-01] MEDS: Furosemide 20 MG/2 ML VIAL IV (16:28)
[2022-02-01 19:14] LABS: Absolute Lymphocyte Count 1.61 X10^3/uL (0.83-4.51); Absolute Neutrophil Count 6.1 X10^3/uL (2.0-7.7); Basophil# 0.04 X10^3/uL; Basophil% 0.4 % (0-1); Eosinophil# 0.15 X10^3/uL; Eosinophils% 1.7 % (0-5); Hematocrit 26.8 % (37-47); Hemoglobin 8.9 g/dL (12.0-15.0); Lymphocyte # 1.61 X10^3/ul (0.83-4.51); Lymphocyte % 17.8 % (19-41); Mean Corp Hgb Conc 33.2 g/dL (32-36); Mean Corpuscular Hgb 29.6 pg (27.0-32.0); Monocyte# 1.06 X10^3/uL; Monocyte% 11.7 % (0-10); NRBC Flagged by Analyzer 0.4 % (0-5); Neutrophil # 6.09 X10^3/uL (2.7-7.7); Neutrophil % 67.2 % (47-70); Platelet Count 202 K/mm3 (150-450); RBC Distribution Width CV 13.4 % (11.6-14.6); RBC Distribution Width SD 43.7 fl (35.1-43.9); Red Blood Count 3.01 M/mm3 (4.2-5.4); White Blood Count 9.1 K/mm3 (4.4-11.0)
== END 2022-02-01 20:06 | DRG 482 ==
LOC: ED 11:19 → MS3 11:33
PROVIDERS: Anesthesiology; Orthopaedic Surgery; Admitting Provider Internal Medicine; Emergency Provider Emergency Medicine; PCP Family Medicine Geriatric Medicine; Visit Provider Internal Medicine
PROC: 0QS636Z Reposition Right Upper Femur with Intramedullary Internal Fixation Device, Percutaneous Approach (ICD-10-PCS; principal; 2022-01-29 12:00)
DX: S72.141A Displaced intertrochanteric fracture of right femur, initial encounter for closed fracture (principal); D50.9 Iron deficiency anemia, unspecified; E03.9 Hypothyroidism, unspecified; E87.6 Hypokalemia; E55.9 Vitamin D deficiency, unspecified; W01.0XXA Fall on same level from slipping, tripping and stumbling without subsequent striking against object, initial encounter; Y93.01 Activity, walking, marching and hiking; Y92.000 Kitchen of unspecified non-institutional (private) residence as the place of occurrence of the external cause; Z20.822 Contact with and (suspected) exposure to COVID-19; Z79.890 Hormone replacement therapy; Z79.01 Long term (current) use of anticoagulants; Z87.891 Personal history of nicotine dependence
CPT/HCPCS: 36415; 71045; 73502; 73552; 76000; 80048; 80053; 82728; 83540; 83550; 84132; 84484; 85014; 85018; 85025; 85027; 85045; 85610; 85730; 86850; 86900; 86901; 86920; 86922; 87811; 93005; 97110; 97116; 97162; 97165; 97530; 97535; 97802; 99251; 99285; 99406; C1713; J7030; J7040; J7050; J7120; P9016; A4216; G0463; J1940; J2405; J2916

== ENCOUNTER 2022-02-01 20:20 | Inpatient (IN) | payer MEDICARE, SELFPAY ==
[2022-02-01 20:59] VITALS: BP 155/72; PULSE 98; TEMP 36.1; O2SAT 91
[2022-02-01 21:01] VITALS: RESP 16; O2SAT 96
--- NOTE | 2022-02-01 21:14 | PCM.HP.STD ---
HPI - General General Date of Admission: 02/01/22 Date of Service: 02/02/22 Chief Complaint: Here for rehab. HPI Narrative 01/29/2022 NICOLE HUGGINS, is a 76 Female who presents to [facility] Emergency Department with fall, right hip pain. Slipped, fell in kitchen. Unable to get up after fall, sharp, stabbing right hip pain. X-ray showed right hip fracture. K 2.8, EKG okay. Dilaudid given. 01/29/2022 Admit to Hospital. Replace potassium. Prepare for surgery. 01/29/2022 Dr. Salas performed cephalo-medullary fixation right hip. 01/30/2022 Severe right hip pin, no sleep. Tylenol, Oxycodone, Morphine for pain. Eliquis for DVT prophylaxis. 01/31/2022 Significant right hip pain. Hemoglobin 7.3, low iron, Venofer IV x 2 given. 02/01/2022 Eliquis 2.5mg bid thru 02/19/2022 for DVT prophylaxis. 02/01/2022 Admit to TCU with debility, here for rehabilitation, strengthening, prior to discharge home alone. [facility] Medical History Abnormal mammogram of right breast Breast mass, right Contusion of right knee Family history of breast cancer Hemorrhoids Strain of right knee Thyroid disease Home Medications levothyroxine 75 mcg tablet 75 mcg PO DAILY THYROID 03/11/20 [History Last Taken Unknown] acetaminophen 500 mg tablet 1,000 mg PO TID PAIN 02/01/22 [History Last Taken Unknown] apixaban 5 mg tablet (Eliquis) 2.5 mg PO BID BLOOD THINNER 02/01/22 [History Last Taken Unknown] ascorbic acid (vitamin C) 500 mg tablet (Vitamin C) 500 mg PO DAILY Check with primary doctor 02/01/22 [History Last Taken Unknown] ergocalciferol (vitamin D2) 1,250 mcg (50,000 unit) capsule 1,250 mcg PO QWEEK SUPPLEMENT 02/01/22 [History Last Taken Unknown] ferrous sulfate 325 mg (65 mg iron) tablet (Iron (ferrous sulfate)) 325 mg PO BID SUPPLEMENT 02/01/22 [History Last Taken Unknown] food supplemt, lactose-reduced 0.08 gram-1.5 kcal/mL oral liquid (Ensure Plus High Protein) 120 ml PO 4X/DAY SUPPLEMENT 02/01/22 [History Last Taken Unknown] oxycodone 5 mg tablet 5 mg PO Q6H PRN pain 1 day #4 tabs 02/01/22 [Rx Last Taken Unknown] Allergy/AdvReac Type Severity Reaction Status Date / Time No Known Allergies Allergy Verified 01/29/22 07:40 Family History Mother Breast cancer Sister Breast cancer Sister Lymphoma Surgical History History of partial hysterectomy History of right breast biopsy (~03/2020) Social History (Updated 02/01/22 @ 21:[address] Lucio Ayoub MD) household members: none Smoking Status: Former smoker second hand exposure: No alcohol intake: never substance use type: does not use ROS Constitutional Constitutional: Denies chills, fever(s) or weight gain ENT HEENT: Denies headache(s), nasal congestion or nasal discharge Cardiovascular Cardiovascular: Denies chest pain or palpitations Respiratory/Chest Respiratory/Chest: Denies cough, excessive phlegm production or shortness of breath with exertion Gastrointestinal Gastrointestinal: Reports nausea; Denies abdominal pain or vomiting Genitourinary Genitourinary: Denies dysuria Musculoskeletal Musculoskeletal: Denies joint pain or joint swelling Integumentary Integumentary: Denies rash or wounds Neurologic Neurologic: Denies focal weakness, numbness or tingling Psychiatric Psychiatric: Denies anxiety, auditory hallucinations, depression, homicidal ideation or suicidal ideation Vital Signs Vital Signs Vital Signs: 02/01/22 20:59 Temperature 97.0 F L Temperature Source Temporal Pulse Rate 98 Blood Pressure 155/72 H Blood Pressure Mean 99 Pulse Ox 91 Oxygen Delivery Method Room Air Weight Weight: 77.593 kg Physical Exam Const alert General Appearance: cooperative HEENT normocephalic Eyes PERRL and EOMs intact bilaterally Neck supple, no JVD and no carotid bruits Resp normal respiratory effort, normal air movement and clear to auscultation bilaterally Cardio regular rate and regular rhythm GI normal to inspection, nondistended, normoactive bowel sounds, non-tender and non-distended Extremity normal capillary refill General Extremity: Negative for edema Skin no rashes or lesions noted General Skin Exam: no breakdown Psych affect normal Appearance: appropriate Results Lab / Micro Data Result Diagrams: 02/02/22 05:08 02/02/22 05:08 Assessment & Plan Assessment/Plan (1) Debility: (2) Closed right hip fracture: (3) Hypothyroidism: (4) Iron deficiency anemia: PLAN: Plan 76 year old female with below past medical history hospitalized for right hip fracture, underwent right hip cephalo-medullary fixation 01/29/[address] Salas, admitted to TCU with debility, here for rehabilitation, strengthening, prior to discharge home alone. Debility - PT/OT. Pain - Tylenol 1000mg tid, Oxycodone 5mg q4h prn pain (6-10). Bowel - Miralax 17gm daily, senna/colace 2 tablets bid, MOM 30ml daily prn. Adult immunization - Administer pneumonia vaccine, covid19 vaccine, flu vaccine as appropriate. DVT prophylaxis - Eliquis 2.5mg bid thru 02/20/2022. Iron deficiency anemia - Ferrous sulfate 325mg bid, Vitamin C 500mg daily. Nutrition - Ensure Plus 120ml po 4x/day. Vitamin D deficiency - Vitamin D 1.25mg per week. Hypothyroidism - Levothyroxine 75mcg daily.
[2022-02-01] MEDS: oxyCODONE 5 MG Tablet PO (21:50)
[2022-02-01] MEDS: Ensure Plus High Protein 120 ML LIQUID PO (21:50)
[2022-02-01] MEDS: Acetaminophen 500 MG Tablet 1000 MG PO (21:50)
[2022-02-01] MEDS: APIXABAN 2.5 MG TABLET (WCH) PO (21:51)
[2022-02-01] MEDS: Senna/Docusate Sodium 1 Tablet 2 TABLET PO (21:52)
--- NOTE | 2022-02-01 22:53 | NURSING ---
patient states has received all needed vaccines prior to admission and declines vaccines at this time. Pt. educated on pneumococcal vaccine, flu vaccine, and covid vaccine. Patients states I've already had them, I'm up to date, I don't need them. Patient expresses wish to be full code. Patient states scabbed areas to face/arms/hands/fingers related to getting Drano all over me when I was trying to fix the sink before my fall at home. A&OX3, able to voice needs. Call light in reach.
--- NOTE | 2022-02-01 23:49 | NURSING ---
ATTEMPT TO CONTACT PHARMACY AT THIS TIME REGARDING ORDER TO CLARIFY WEEKLY VITAMIN D LAST DATE ADMINISTERED PER PHARMACY REQUEST, NO ANSWER AT THIS TIME.
[2022-02-02] MEDS: oxyCODONE 5 MG Tablet PO ×2 (02:13→06:18)
[2022-02-02 05:42] LABS: Basophil# 0.04 X10^3/uL; Basophil% 0.5 % (0-1); Eosinophil# 0.21 X10^3/uL; Eosinophils% 2.7 % (0-5); Hematocrit 27.6 % (37-47); Hemoglobin 9.1 g/dL (12.0-15.0); Lymphocyte % 20.5 % (19-41); Mean Corpuscular Hgb 29.9 pg (27.0-32.0); Mean Corpuscular Volume 90.8 fL (81-99); Mean Platelet Vol. 10.1 fl (6.2-12.0); Monocyte# 0.86 X10^3/uL; NRBC Flagged by Analyzer 0.6 % (0-5); Neutrophil # 5.02 X10^3/uL (2.7-7.7); Neutrophil % 64.5 % (47-70); Platelet Count 222 K/mm3 (150-450); RBC Distribution Width CV 13.7 % (11.6-14.6); RBC Distribution Width SD 45.1 fl (35.1-43.9); Red Blood Count 3.04 M/mm3 (4.2-5.4); White Blood Count 7.8 K/mm3 (4.4-11.0)
[2022-02-02 06:11] LABS: Anion Gap 8 (5-15); BUN 12 mg/dL (7-18); BUN/Creat Ratio 18.1 RATIO (10-20); Calcium,Total 8.9 mg/dL (8.5-10.1); Chloride 104 mmol/L (98-107); Creatinine, Serum 0.66 mg/dL (0.55-1.02); EST Glomerular Filtration Rate 92 mL/min (>60); Est Glom Filt Rate - Afr Amer 111 mL/min (>60); Glucose 103 mg/dL (74-106); Potassium 3.7 mmol/L (3.5-5.1); Sodium Level 138 mmol/L (136-145)
[2022-02-02] MEDS: Polyethylene Glycol 3350 17 GM PACKET PO (06:18)
[2022-02-02] MEDS: APIXABAN 2.5 MG TABLET (WCH) PO ×2 (06:19→17:50)
[2022-02-02] MEDS: Magnesium Hydroxide 30 ML UDC PO (06:19)
[2022-02-02] MEDS: Senna/Docusate Sodium 1 Tablet 2 TABLET PO ×2 (06:19→17:50)
[2022-02-02] MEDS: Ensure Plus High Protein 120 ML LIQUID PO ×4 (06:19→21:32)
[2022-02-02] MEDS: Levothyroxine 75 MCG Tablet PO (06:19)
[2022-02-02] MEDS: Ascorbic Acid 500 MG Tablet PO (06:19)
[2022-02-02] MEDS: Acetaminophen 500 MG Tablet 1000 MG PO ×3 (06:19→21:33)
[2022-02-02] MEDS: 0.9% Saline Lock 10 ML Syringe IV (06:25)
--- NOTE | 2022-02-02 08:32 | NURSING ---
pt nauseated this AM, states its from taking meds on empty stomach. pt has not had BM since before surgery. dr maldonado updated, new order zofran PRN and administer SSEx1. pt updated.
--- NOTE | 2022-02-02 09:49 | NURSING ---
SSE given, with small balls of stool noted, expolsive gas noted. pt stated I feel much better pt belching and passing lots of gas. resting in bed, call light in reach.
[2022-02-02 10:00] VITALS: O2SAT 93
[2022-02-02] MEDS: Ondansetron ODT 4 MG Tablet PO (10:51)
--- NOTE | 2022-02-02 10:55 | NURSING ---
patient wanted zofran first before oxy. i already removed from package wasted oxy with jag rodriguez per hospital protocol
[2022-02-02] MEDS: oxyCODONE 5 MG Tablet 10 MG PO (11:08)
[2022-02-02] MEDS: Ergocalciferol 1.25 MG (50, 000 UNIT) Capsule PO (11:08)
[2022-02-02] MEDS: Tuberculin,Purif.prot.deriv. 50 TU/ML Vial 0.1 ML ID (11:09)
--- NOTE | 2022-02-02 11:30 | PHA.CONS_ITS ---
TCU RX Drug Regimen Review Subjective: TCU Admission. 76 YOF presented to the ER with a fall, right hip pain. Hospitalized for right hip fracture, underwent right hip cephalo-medullary fixation 01/29/[address] Salas. Admitted to TCU with debility for strengthening and rehabilitation. Objective: Allergies No Known Allergies Allergy (Verified 01/29/22 07:40) Current Medications Generic Name Dose Route Start Last Admin Trade Name Freq PRN Reason Stop Dose Admin Acetaminophen 1,000 mg 02/02/22 15:00 Acetaminophen 500 Mg Tablet PO TID@0800,1500,2200 [facility] Apixaban 2.5 mg 02/02/22 18:00 Apixaban 2.5 Mg Tablet ([facility]) PO 02/20/22 18:01 BID@0800,1800 [facility] Ascorbic Acid 500 mg 02/03/22 08:00 Ascorbic Acid 500 Mg Tablet PO DAILY@0800 [facility] Ergocalciferol 1.25 mg 02/09/22 08:00 02/02/22 11:08 Ergocalciferol 1.25 Mg (50, 000 Unit) Capsule PO 1.25 mg Tu@0800 [facility] Administration Ferrous Sulfate 325 mg 02/02/22 12:45 Ferrous Sulfate 325 Mg Tablet PO BID@1245,1745 [facility] Levothyroxine Sodium 75 mcg 02/02/22 06:00 02/02/22 06:19 Levothyroxine 75 Mcg Tablet PO 75 mcg DAILY GE[facility] Administration Magnesium Hydroxide 30 ml 02/01/22 21:36 02/02/22 06:19 Magnesium Hydroxide 30 Ml Udc PO 30 ml DAILY PRN Administration Constipation Nutritional Formula (Lactose Free) 120 ml 02/01/22 22:00 02/02/22 06:19 Ensure Plus High Protein 120 Ml Liquid PO 120 ml 4X/DAY GEOVANNA Administration Ondansetron HCl 4 mg 02/02/22 07:58 02/02/22 10:51 Ondansetron Odt 4 Mg Tablet PO 4 mg Q8H PRN PRN Administration NAUSEA Oxycodone HCl 10 mg 02/02/22 07:46 02/02/22 11:08 Oxycodone 5 Mg Tablet PO 10 mg Q4H PRN PRN Administration Pain Score 6-10 Polyethylene Glycol 17 gm 02/03/22 08:00 Polyethylene Glycol 3350 17 Gm Packet PO DAILY@0800 [facility] Senna/Docusate Sodium 2 tablet 02/02/22 18:00 Senna/Docusate Sodium 1 Tablet PO BID@0800,1800 [facility] Sodium Chloride 10 - 40 ml 02/01/22 22:50 02/02/22 06:25 0.9% Saline Lock 10 Ml Syringe IV 20 ml UD PRN Administration SALINE FLUSH Tramadol HCl 50 mg 02/02/22 07:46 Tramadol 50 Mg Tablet PO Q6H PRN PRN Pain Score 1-5 Tuberculin PPD 0.1 ml 02/09/22 10:00 Tuberculin,Purif.Prot.Deriv. 50 Tu/Ml Vial ID 02/09/22 10:01 X1 ONE Problem List (Last Reviewed 02/01/22 @ 21:[address] Lucio Ayoub MD) Iron deficiency anemia (Acute) Hypothyroidism (Acute) Closed right hip fracture (Acute) Debility (Acute) Vital Signs Temp Pulse Resp BP Pulse Ox O2 Del Method 97.0 F L 98 16 155/72 H 93 Room Air 02/01/22 20:59 02/01/22 20:59 02/01/22 21:01 02/01/22 20:59 02/02/22 10:00 02/02/22 10:00 Oxygen Delivery Method Room Air Weight: 77.593 kg Sodium 138 mmol/L (136-145) 02/02/22 05:08 Potassium 3.7 mmol/L (3.5-5.1) 02/02/22 05:08 Chloride 104 mmol/L (98-107) 02/02/22 05:08 Carbon Dioxide 26.0 mmol/L (21.0-32.0) 02/02/22 05:08 Anion Gap 8 (5-15) 02/02/22 05:08 BUN 12 mg/dL (7-18) 02/02/22 05:08 Creatinine 0.66 mg/dL (0.55-1.02) 02/02/22 05:08 Est GFR (MDRD) Af Amer 111 mL/min (>60) 02/02/22 05:08 Est GFR (MDRD) Non-Af 92 mL/min (>60) 02/02/22 05:08 BUN/Creatinine Ratio 18.1 RATIO (10-20) 02/02/22 05:08 Glucose 103 mg/dL (74-106) 02/02/22 05:08 Assessment/Plan: 1. Pain: acetaminophen?1000 mg?PO TID, tramadol 50mg PO Q6H PRN pain 1-5 and oxycodone 5 mg PO Q4H PRN pain 6-10.?Resident has had one dose of oxycodone for a pain score of 8 in the hip/abdomen.?Please continue to monitor for increased pain and PRN usage, renal function, constipation?(no documented bowel movement, bowel regimen ordered),?and?respiratory?depression.? 2. Bowel: Miralax 17gm PO daily, senna/docusate 2 tablets PO BID, and MOM 30 mL PO daily as needed.?MOM last?administered?02/02/22. Please continue to?mon itor?for constipation and PRN usage.?No documented bowel movement yet. 3. DVT prophylaxis: apixaban 2.5 mg PO BID?thru?02/20/2022. Please continue to?monitor?hemoglobin (last 9.1 g/dL 02/02/22), and?S/S of a blood clot and/or bleed.? 4. Hypothyroidism: levothyroxine 75 mcg PO daily. Please consider ordering a TSH if clinically appropriate. Last level from 12/10/20. Thanks. Please continue to monitor S/S of hypo/hyperthyroidism.? 5. Iron deficiency anemia/vitamin D deficiency:?ferrous sulfate?325 mg?PO BID, ascorbic acid?500 mg?PO daily, and ergocalciferol 1.25 mg PO once weekly. Please continue to monitor hemoglobin (last 9.1g/dL), constipation and dark stools.?Please consider ordering a vitamin D level if clinically appropriate. Last level from 12/10/20. Thanks. 6. Nausea: ondansetron 4mg PO Q8H PRN nausea. Please continue to monitor for nausea and PRN usage. Resident has had 1 dose so far. Assessment/Plan for indications treated with psychotropic medications: None Medical chart and medication regimen reviewed. The following medication irregularities or issues were identified: *1. Levothyroxine 75 mcg PO daily. Please consider ordering a TSH if clinically appropriate. Last level from 12/10/20. Thanks. *2. Ergocalciferol 1.25 mg PO once weekly. Please consider ordering a vitamin D level if clinically appropriate. Last level from 12/10/20. Thanks. Date of Note:: 02/02/22
[2022-02-02] MEDS: Ferrous Sulfate 325 MG Tablet PO (12:11)
[2022-02-02 14:38] VITALS: BP 124/69; PULSE 90; RESP 16; TEMP 36.5; O2SAT 96
--- NOTE | 2022-02-02 16:20 | CASEMGMT ---
Social Work Met with patient to complete initial assessment. Introduced self and role. Verified contacts. Discussed code status and MOLST form. Pt confirms full code. MOLST completed, placed in Dr folder. Educated to [facility] insurance with NRD 02/05 and continued stay is not guaranteed with each review. Pts goal is to return home alone at OF with the ability to complete steps. Son and DIL both work load builder and unable to assist at home. P:t would like to complete advanced directives, but needs address and phone number for alternate POA. SW to complete once information is retrieved. SW to continue to follow. Tabitha Arvizu, HEAVY DUTY CUSTODIAN DIESEL RETROFIT INSTALLER
[2022-02-02] MEDS: Electrolyte Solution/Peg's 4000 ML 1000 ML PO (18:38)
--- NOTE | 2022-02-02 20:37 | NURSING ---
dressing changed to right hip per order, 3 surgical sites observed with cedrick intact. Proximal site with 13 cedrick intact and moderate serosanguineous drainage, middle sx site with 5 cedrick intact with moderate serosang drainage, distal sx site with scant serosang drainage and 3 cedrick intact. Tolerated well. Denies need for PRN pain medication at this time. Denies requests. Call light in reach.
[2022-02-03] MEDS: oxyCODONE 5 MG Tablet 10 MG PO ×4 (04:24→19:42)
[2022-02-03] MEDS: 0.9% Saline Lock 10 ML Syringe IV (05:15)
[2022-02-03] MEDS: Levothyroxine 75 MCG Tablet PO (05:15)
[2022-02-03] MEDS: Acetaminophen 500 MG Tablet 1000 MG PO ×3 (07:47→21:23)
[2022-02-03] MEDS: APIXABAN 2.5 MG TABLET (WCH) PO ×2 (07:47→16:49)
[2022-02-03] MEDS: Ascorbic Acid 500 MG Tablet PO (07:48)
--- NOTE | 2022-02-03 11:05 | NURSING ---
Gun Perforator Note; Activity Asset: Complete
[2022-02-03] MEDS: Ferrous Sulfate 325 MG Tablet PO ×2 (12:33→16:48)
[2022-02-03 15:51] VITALS: BP 160/79; PULSE 89; RESP 16; TEMP 36.7; O2SAT 94
[2022-02-03] MEDS: Ensure Plus High Protein 120 ML LIQUID PO (16:48)
[2022-02-04] MEDS: oxyCODONE 5 MG Tablet 10 MG PO ×2 (03:12→18:59)
[2022-02-04 05:03] LABS: Hematocrit 29.3 % (37-47); Hemoglobin 9.4 g/dL (12.0-15.0)
[2022-02-04] MEDS: Levothyroxine 75 MCG Tablet PO (05:10)
[2022-02-04] MEDS: Ascorbic Acid 500 MG Tablet PO (07:54)
[2022-02-04] MEDS: APIXABAN 2.5 MG TABLET (WCH) PO ×2 (07:54→17:16)
[2022-02-04] MEDS: Acetaminophen 500 MG Tablet 1000 MG PO ×3 (07:54→21:47)
--- NOTE | 2022-02-04 09:42 | NURSING ---
patient refused stool softener i educated her that the pain medications she is on that she should continue to take a softener.
[2022-02-04] MEDS: BACITRACIN 15 GM Tube 1 APPLIC TOPICAL ×3 (10:24→21:45)
--- NOTE | 2022-02-04 10:30 | NURSING ---
Addendum entered by Estephanie Lee 02/04/22 10:31: no signs of infections w/out redness Original Note: proximal and medial incisions draing mod amt serosand fluid
[2022-02-04] MEDS: Ferrous Sulfate 325 MG Tablet PO ×2 (12:05→17:16)
--- NOTE | 2022-02-04 13:55 | NURSING ---
pt refusing stool softeners and miralax d/t liquid incont stools. held today, but educated pt on restarting them to prevent constipation.
[2022-02-04 14:04] VITALS: BP 147/68; PULSE 80; RESP 16; TEMP 36.6; O2SAT 96
[2022-02-04 22:00] VITALS: PULSE 85; RESP 14; O2SAT 97
[2022-02-05] MEDS: oxyCODONE 5 MG Tablet 10 MG PO ×3 (00:49→10:13)
[2022-02-05] MEDS: Levothyroxine 75 MCG Tablet PO (05:47)
--- NOTE | 2022-02-05 05:50 | NURSING ---
patient declines bacitracin ointment at this time, states will accept after I get washed up and ready for the day.PRN Oxy administered as ordered per pt. request for 10/10 right hip pain. No distress observed or reported. Patient states increase in pain related to just going to the bathroom, states pain decreases at rest. Presents in bed watching the news, Call light in reach.
[2022-02-05 07:45] VITALS: O2SAT 95
[2022-02-05] MEDS: Polyethylene Glycol 3350 17 GM PACKET PO (07:54)
[2022-02-05] MEDS: Senna/Docusate Sodium 1 Tablet 2 TABLET PO ×2 (07:54→17:01)
[2022-02-05] MEDS: APIXABAN 2.5 MG TABLET (WCH) PO ×2 (07:54→17:01)
[2022-02-05] MEDS: Acetaminophen 500 MG Tablet 1000 MG PO ×3 (07:55→21:05)
[2022-02-05] MEDS: Ascorbic Acid 500 MG Tablet PO (07:55)
[2022-02-05] MEDS: BACITRACIN 15 GM Tube 1 APPLIC TOPICAL ×3 (08:31→21:09)
[2022-02-05 10:00] VITALS: PULSE 77; O2SAT 98
--- NOTE | 2022-02-05 11:18 | CASEMGMT ---
Social Work BIMS () and PHQ-9 (01/14) completed for MDS assessment. Explored positive responses. Pt reports to lack of interest, energy and poor appetite related to being in the hospital and wanting to return home. Pt denies feeling down/depressed. Denies any support needed. SW updated pt and DIL of insurance NRD 02/10, requesting DC plans in place. Per family, pt needs to return to PLOF to return home and family cannot provide 24/ care. Offered assistance with alternative options for DC plans. Will continue to follow. LUCAS Calvin MOTION PICTURES CARTOONIST
--- NOTE | 2022-02-05 11:58 | NURSING ---
FAMILY REQUESTING THAT ULTRAM BE TRIED FIRST BEFORE OXYIR, OXYIR MAKING PT MORE SLEEPY. NOTE PLACED ON MAY.
[2022-02-05] MEDS: Ferrous Sulfate 325 MG Tablet PO ×2 (12:03→17:00)
[2022-02-05 13:52] VITALS: BP 149/73; PULSE 87; RESP 16; TEMP 36.8; O2SAT 96
--- NOTE | 2022-02-05 14:34 | CASEMGMT ---
Social Work Completed advanced directives with pt. Original and copy provided to pt. Copies placed on chart. Tabitha Arvizu , LABORER PULLET FARM LENS MAKER
[2022-02-05] MEDS: Ensure Plus High Protein 120 ML LIQUID PO (21:04)
[2022-02-05] MEDS: traMADol 50 MG Tablet PO (21:09)
[2022-02-06] MEDS: Levothyroxine 75 MCG Tablet PO (03:11)
[2022-02-06] MEDS: traMADol 50 MG Tablet PO (03:11)
[2022-02-06] MEDS: BACITRACIN 15 GM Tube 1 APPLIC TOPICAL ×3 (03:12→21:31)
[2022-02-06 06:54] VITALS: O2SAT 95
[2022-02-06] MEDS: Ondansetron ODT 4 MG Tablet PO (07:46)
[2022-02-06] MEDS: Polyethylene Glycol 3350 17 GM PACKET PO (08:52)
[2022-02-06] MEDS: Senna/Docusate Sodium 1 Tablet 2 TABLET PO ×2 (08:52→17:24)
[2022-02-06] MEDS: Acetaminophen 500 MG Tablet 1000 MG PO ×3 (08:53→21:31)
[2022-02-06] MEDS: APIXABAN 2.5 MG TABLET (WCH) PO ×2 (08:53→17:24)
[2022-02-06] MEDS: Ascorbic Acid 500 MG Tablet PO (08:54)
[2022-02-06] MEDS: oxyCODONE 5 MG Tablet 10 MG PO ×3 (08:54→21:31)
[2022-02-06 09:44] VITALS: PULSE 89; RESP 16; O2SAT 99
[2022-02-06] MEDS: Ferrous Sulfate 325 MG Tablet PO ×2 (11:37→17:24)
[2022-02-06] MEDS: Ensure Plus High Protein 120 ML LIQUID PO ×2 (11:37→17:23)
[2022-02-06 12:07] VITALS: BP 137/54; PULSE 84; RESP 16; TEMP 36.7; O2SAT 96
--- NOTE | 2022-02-06 15:34 | NURSING ---
Patient refusing to take tramadol, she says it causes nausea and oxy doesn't. She also says tramadol does not help very much with pain. She also rates pain at least a 6/10 every time.
[2022-02-07] MEDS: Levothyroxine 75 MCG Tablet PO (03:57)
[2022-02-07] MEDS: BACITRACIN 15 GM Tube 1 APPLIC TOPICAL ×3 (03:57→20:57)
[2022-02-07] MEDS: oxyCODONE 5 MG Tablet 10 MG PO ×3 (04:04→21:49)
[2022-02-07 07:02] VITALS: O2SAT 94
[2022-02-07] MEDS: Senna/Docusate Sodium 1 Tablet 2 TABLET PO ×2 (08:42→17:16)
[2022-02-07] MEDS: APIXABAN 2.5 MG TABLET (WCH) PO ×2 (08:42→17:17)
[2022-02-07] MEDS: Acetaminophen 500 MG Tablet 1000 MG PO ×3 (08:42→20:58)
[2022-02-07] MEDS: Polyethylene Glycol 3350 17 GM PACKET PO (08:42)
[2022-02-07] MEDS: Ascorbic Acid 500 MG Tablet PO (08:43)
[2022-02-07] MEDS: Ferrous Sulfate 325 MG Tablet PO ×2 (12:19→17:16)
[2022-02-07 14:41] VITALS: BP 140/59; PULSE 76; RESP 20; TEMP 36.4; O2SAT 96
--- NOTE | 2022-02-07 21:02 | NURSING ---
Dressing on right hip and thigh changed at this time. Moderate amount of serosanguineous drainage noted. Extremity is still very bruised and has 1+ pitting edema, but there is no redness or warmth noted at the incision site.
[2022-02-07 21:45] VITALS: O2SAT 96
[2022-02-08] MEDS: BACITRACIN 15 GM Tube 1 APPLIC TOPICAL ×3 (05:01→20:54)
[2022-02-08] MEDS: Levothyroxine 75 MCG Tablet PO (05:01)
[2022-02-08] MEDS: oxyCODONE 5 MG Tablet 10 MG PO (05:02)
--- NOTE | 2022-02-08 06:48 | NURSING ---
Dressing on right hip and thigh changed at this time. Copious amount of serosanguineous drainage noted on old dressings. Pt tolerated dressing change well.
[2022-02-08] MEDS: Polyethylene Glycol 3350 17 GM PACKET PO (07:59)
[2022-02-08] MEDS: Ascorbic Acid 500 MG Tablet PO (08:00)
[2022-02-08] MEDS: APIXABAN 2.5 MG TABLET (WCH) PO ×2 (08:00→17:27)
[2022-02-08] MEDS: Acetaminophen 500 MG Tablet 1000 MG PO ×2 (08:04→18:45)
--- NOTE | 2022-02-08 09:42 | NURSING ---
Car Unloader Note; Activity CAA Complete
--- NOTE | 2022-02-08 09:47 | NURSING ---
Plastic Maker Note; MDS Complete
[2022-02-08 10:00] VITALS: PULSE 79; O2SAT 96
[2022-02-08] MEDS: Ensure Plus High Protein 120 ML LIQUID PO (12:12)
[2022-02-08] MEDS: Ferrous Sulfate 325 MG Tablet PO ×2 (12:15→17:27)
[2022-02-08] MEDS: HYDROcodone Bitartrate/Apap 5/325 Tablet PO ×3 (12:15→20:52)
--- NOTE | 2022-02-08 12:51 | NURSING ---
PT GOING TO APPOINTMENT WITH DR.MATT MONTEZ ON 02/12/22 @11:00AM. SON WILL TRANSPORT.
[2022-02-08 14:10] VITALS: BP 140/61; PULSE 75; RESP 18; TEMP 36.3; O2SAT 95
--- NOTE | 2022-02-08 15:50 | NURSING ---
I changed her dressing 1530, moderate drainage, purulent in color, patient tolerated well, cedrick in tact.
[2022-02-09] MEDS: HYDROcodone Bitartrate/Apap 5/325 Tablet PO (01:39)
--- NOTE | 2022-02-09 01:50 | NURSING ---
Addendum entered by Ervin Penn 02/09/22 01:52: continued: Patient A&Ox3, able to express needs. Original Note: PRN [place] administered per pt request for 09/27 pain to right hip. Patients states she would like for Dr. Ayoub to be notified in the AM that she would like to have Oxy restarted. Patient states [place] not as effective, states I know my family doesn't want me taking oxy because they think I will get hooked, but I need it for the pain and I won't take it for the wrong reasons. Written communication left for Dr. Ayoub regarding patient request.
[2022-02-09] MEDS: Acetaminophen 500 MG Tablet 1000 MG PO ×2 (03:42→13:44)
--- NOTE | 2022-02-09 03:44 | NURSING ---
Patient used called light asking for Nurse. This Nurse started walking down hallway and could hear patient crying out. Entered patient's room. Patient stating pain is 10 out of 10 Offered patient Tylenol as that is all available. Patient agreed. Patient also assisted x2 to recliner. When administering Tylenol only able to administer 500 mg d/t patient at Acetaminophen max dose.
[2022-02-09] MEDS: Ensure Plus High Protein 120 ML LIQUID PO ×2 (04:46→11:36)
[2022-02-09] MEDS: BACITRACIN 15 GM Tube 1 APPLIC TOPICAL ×2 (04:46→13:44)
[2022-02-09] MEDS: Levothyroxine 75 MCG Tablet PO (04:46)
[2022-02-09 05:54] LABS: Absolute Lymphocyte Count 1.54 X10^3/uL (0.83-4.51); Absolute Neutrophil Count 3.2 X10^3/uL (2.0-7.7); Basophil# 0.05 X10^3/uL; Basophil% 0.9 % (0-1); Eosinophil# 0.12 X10^3/uL; Eosinophils% 2.2 % (0-5); Hematocrit 29.6 % (37-47); Hemoglobin 9.8 g/dL (12.0-15.0); Lymphocyte # 1.54 X10^3/ul (0.83-4.51); Lymphocyte % 28.6 % (19-41); Mean Corp Hgb Conc 33.1 g/dL (32-36); Mean Corpuscular Hgb 30.3 pg (27.0-32.0); Mean Corpuscular Volume 91.6 fL (81-99); Mean Platelet Vol. 9.1 fl (6.2-12.0); Monocyte# 0.44 X10^3/uL; Monocyte% 8.2 % (0-10); NRBC Flagged by Analyzer 0 % (0-5); Neutrophil % 59.5 % (47-70); Platelet Count 404 K/mm3 (150-450); RBC Distribution Width CV 15.8 % (11.6-14.6); RBC Distribution Width SD 51.8 fl (35.1-43.9); Red Blood Count 3.23 M/mm3 (4.2-5.4); White Blood Count 5.4 K/mm3 (4.4-11.0)
[2022-02-09 06:21] LABS: Anion Gap 4 (5-15); BUN 11 mg/dL (7-18); Chloride 108 mmol/L (98-107); Creatinine, Serum 0.55 mg/dL (0.55-1.02); EST Glomerular Filtration Rate 114 mL/min (>60); Est Glom Filt Rate - Afr Amer 138 mL/min (>60); Glucose 100 mg/dL (74-106); Potassium 3.7 mmol/L (3.5-5.1); Sodium Level 139 mmol/L (136-145)
[2022-02-09] MEDS: Senna/Docusate Sodium 1 Tablet 2 TABLET PO ×2 (08:06→17:30)
[2022-02-09] MEDS: APIXABAN 2.5 MG TABLET (WCH) PO ×2 (08:06→17:30)
[2022-02-09] MEDS: Polyethylene Glycol 3350 17 GM PACKET PO (08:06)
[2022-02-09] MEDS: Ergocalciferol 1.25 MG (50, 000 UNIT) Capsule PO (08:06)
[2022-02-09] MEDS: Ascorbic Acid 500 MG Tablet PO (08:06)
[2022-02-09 08:22] VITALS: PULSE 79; RESP 18; O2SAT 98
[2022-02-09] MEDS: oxyCODONE 5 MG Tablet PO ×3 (09:13→18:21)
--- NOTE | 2022-02-09 11:22 | MDS.RN ---
Information for the mds was obtained from review of the clinical record, interview of resident, staff, and direct observation of resident's care.
[2022-02-09] MEDS: Tuberculin,Purif.prot.deriv. 50 TU/ML Vial 0.1 ML ID (11:34)
[2022-02-09] MEDS: Ferrous Sulfate 325 MG Tablet PO ×2 (13:44→17:30)
[2022-02-09 15:05] VITALS: BP 152/83; PULSE 86; RESP 18; TEMP 36.5; O2SAT 98
--- NOTE | 2022-02-09 21:40 | NURSING ---
Patient refused all HS medications at this time.
[2022-02-10] MEDS: oxyCODONE 5 MG Tablet PO ×4 (01:22→20:01)
[2022-02-10] MEDS: Levothyroxine 75 MCG Tablet PO (06:06)
[2022-02-10] MEDS: Acetaminophen 500 MG Tablet 1000 MG PO ×3 (06:06→20:01)
[2022-02-10] MEDS: BACITRACIN 15 GM Tube 1 APPLIC TOPICAL ×3 (06:07→20:00)
[2022-02-10] MEDS: Ensure Plus High Protein 120 ML LIQUID PO ×2 (06:10→20:00)
[2022-02-10] MEDS: Ascorbic Acid 500 MG Tablet PO (08:54)
[2022-02-10] MEDS: Polyethylene Glycol 3350 17 GM PACKET PO (08:54)
[2022-02-10] MEDS: APIXABAN 2.5 MG TABLET (WCH) PO ×2 (08:55→17:01)
--- NOTE | 2022-02-10 09:00 | CASEMGMT ---
Social Work Plan of Care meeting held. Patient present as well as patient son, Pablo and [id number], Liza. Patient plans to discharge to home alone with family support. Team is recommending for patient to continue with care and treatment for another week to increase patient level of independence due to patient living at home alone. There are stairs to enter and function within the home. Patient has a tub that PT plans to address/assess for need of a extended tub bench vs. bench in the tub. Patient reports to have a seat in tub already. Patient identifies need for front wheeled walker, 3-in-1 bedside commode, and hip kit. Liza plans to obtain hip kit for patient. Social Work to continue to follow for front wheel walker and 3-in-1 bedside commode and set up at time of discharge. Team recommending for patient to have physical, occupational and speech therapy as well as a home health aide and [place] [facility] through home health services when patient returns to home. Team continues to recommend for patient to continue with further care and treatment on the Transitional Care Unit for at least another week. This social science instructor communicating that insurance update is due today 02/10/2022 with no guarantee of continued stay approval, patient and patient family voiced understanding. No discharge date set patient to continue with further care and treatment on the Transitional Care Unit. Social Work to continue to follow. JOHNY Mesa
[2022-02-10 09:37] VITALS: RESP 18; O2SAT 99
[2022-02-10] MEDS: Ferrous Sulfate 325 MG Tablet PO ×2 (12:45→17:01)
[2022-02-10 15:05] VITALS: BP 123/61; PULSE 72; RESP 16; TEMP 36.6; O2SAT 96
--- NOTE | 2022-02-10 15:20 | CHAPLAIN ---
Type of Pastoral Visit ___ Initial Visit _x__ Follow-up Visit ___ On-call Visit ___ General Patient Visit ___ Spiritual Assessment ___ Family Conference ___ Bereavement ___ Rapid Response ___ Code Blue ___ Other (describe below) Pastoral Care Referral From _x__ Patient ___ Family ___ Nurse ___ Physician ___ Delinquency Prevention Social Worker ___ Vat Washer ___ Other (describe below) Sacrament/Intervention _x__ Active listening ___ Anointing ___ Latter-Day ___ Bereavement ___ Communion ___ Jaz exploration ___ ___ Life review _x__ Prayer ___ Reconciliation ___ Sacrament of Sick ___ Supportive presence ___ Wedding ___ Other (describe below) Pastoral Comments patient remembers this expressive art therapist from first visit when in [facility]; pt uses some humor and asks questions of this expressive art therapist during conversation; pt makes statements about wanting to get home jorge but recognizing that she is making progress; prayer is requested
[2022-02-11] MEDS: oxyCODONE 5 MG Tablet PO ×3 (00:27→18:08)
[2022-02-11] MEDS: BACITRACIN 15 GM Tube 1 APPLIC TOPICAL ×3 (05:59→20:50)
[2022-02-11] MEDS: Acetaminophen 500 MG Tablet 1000 MG PO ×3 (06:00→20:52)
[2022-02-11] MEDS: Levothyroxine 75 MCG Tablet PO (06:00)
[2022-02-11] MEDS: Ensure Plus High Protein 120 ML LIQUID PO (06:05)
[2022-02-11] MEDS: Polyethylene Glycol 3350 17 GM PACKET PO (08:28)
[2022-02-11] MEDS: Senna/Docusate Sodium 1 Tablet 2 TABLET PO (08:29)
[2022-02-11] MEDS: Ascorbic Acid 500 MG Tablet PO (08:29)
[2022-02-11] MEDS: APIXABAN 2.5 MG TABLET (WCH) PO ×2 (08:30→17:24)
[2022-02-11 09:15] VITALS: PULSE 76; RESP 18; O2SAT 98
[2022-02-11] MEDS: Menthol/Lanolin/Calamine/Znox 113 GM Tube 1 APPLIC TOPICAL ×2 (09:20→20:51)
[2022-02-11] MEDS: Ferrous Sulfate 325 MG Tablet PO ×2 (11:57→17:25)
[2022-02-11 15:28] VITALS: BP 122/62; PULSE 76; RESP 14; TEMP 36.3; O2SAT 97
[2022-02-12] MEDS: oxyCODONE 5 MG Tablet PO ×4 (00:07→21:41)
[2022-02-12] MEDS: BACITRACIN 15 GM Tube 1 APPLIC TOPICAL ×3 (05:40→20:07)
[2022-02-12] MEDS: Levothyroxine 75 MCG Tablet PO (05:40)
[2022-02-12] MEDS: Acetaminophen 500 MG Tablet 1000 MG PO ×3 (06:53→20:08)
[2022-02-12] MEDS: Polyethylene Glycol 3350 17 GM PACKET PO (08:52)
[2022-02-12] MEDS: Senna/Docusate Sodium 1 Tablet 2 TABLET PO ×2 (08:52→16:39)
[2022-02-12] MEDS: APIXABAN 2.5 MG TABLET (WCH) PO ×2 (08:52→16:39)
[2022-02-12] MEDS: Ascorbic Acid 500 MG Tablet PO (08:52)
--- NOTE | 2022-02-12 11:17 | NURSING ---
Addendum entered by Nena Mosher 02/12/22 12:26: 1215-patient back to room. Original Note: Patient off floor at 10am, transported to MD visit by family member.
[2022-02-12] MEDS: Ferrous Sulfate 325 MG Tablet PO ×2 (12:35→16:38)
[2022-02-12 16:00] VITALS: BP 121/67; PULSE 85; RESP 16; TEMP 36.3; O2SAT 95
--- NOTE | 2022-02-12 16:40 | NURSING ---
RLE duplex done this afternoon per order from MARGARITA Tain after office visit. Per tech test was negative for DVT, patient updated.
[2022-02-12 20:00] VITALS: PULSE 78; RESP 16; O2SAT 99
[2022-02-13] MEDS: oxyCODONE 5 MG Tablet PO ×3 (02:06→13:18)
[2022-02-13] MEDS: Levothyroxine 75 MCG Tablet PO (04:59)
[2022-02-13] MEDS: Acetaminophen 500 MG Tablet 1000 MG PO ×3 (06:08→21:28)
[2022-02-13] MEDS: Ensure Plus High Protein 120 ML LIQUID PO (06:08)
[2022-02-13] MEDS: BACITRACIN 15 GM Tube 1 APPLIC TOPICAL ×4 (06:09→21:31)
[2022-02-13] MEDS: Polyethylene Glycol 3350 17 GM PACKET PO (08:07)
[2022-02-13] MEDS: Ascorbic Acid 500 MG Tablet PO (08:07)
[2022-02-13] MEDS: APIXABAN 2.5 MG TABLET (WCH) PO ×2 (08:07→17:19)
[2022-02-13] MEDS: Senna/Docusate Sodium 1 Tablet 2 TABLET PO ×2 (08:07→17:19)
[2022-02-13] MEDS: Menthol/Lanolin/Calamine/Znox 113 GM Tube 1 APPLIC TOPICAL ×2 (08:10→21:31)
[2022-02-13 09:25] VITALS: PULSE 78; RESP 18; O2SAT 98
[2022-02-13] MEDS: Ferrous Sulfate 325 MG Tablet PO ×2 (12:00→17:19)
[2022-02-13 14:43] VITALS: BP 125/44; PULSE 71; RESP 16; TEMP 36.8; O2SAT 98
[2022-02-14] MEDS: oxyCODONE 5 MG Tablet PO (01:32)
[2022-02-14] MEDS: Levothyroxine 75 MCG Tablet PO (04:56)
[2022-02-14] MEDS: Acetaminophen 500 MG Tablet 1000 MG PO ×3 (06:30→20:56)
[2022-02-14] MEDS: APIXABAN 2.5 MG TABLET (WCH) PO ×2 (08:26→16:50)
[2022-02-14] MEDS: Polyethylene Glycol 3350 17 GM PACKET PO (08:26)
[2022-02-14] MEDS: Senna/Docusate Sodium 1 Tablet 2 TABLET PO (08:27)
[2022-02-14] MEDS: Ascorbic Acid 500 MG Tablet PO (08:27)
[2022-02-14] MEDS: Menthol/Lanolin/Calamine/Znox 113 GM Tube 1 APPLIC TOPICAL ×2 (08:38→20:57)
[2022-02-14 10:00] VITALS: PULSE 74; RESP 18; O2SAT 96
[2022-02-14] MEDS: Ferrous Sulfate 325 MG Tablet PO ×2 (11:36→16:47)
[2022-02-14 14:27] VITALS: BP 132/63; PULSE 74; RESP 18; TEMP 36.5; O2SAT 96
[2022-02-15] MEDS: Levothyroxine 75 MCG Tablet PO (05:21)
[2022-02-15] MEDS: oxyCODONE 5 MG Tablet PO (06:12)
[2022-02-15] MEDS: Acetaminophen 500 MG Tablet 1000 MG PO ×3 (06:12→19:36)
[2022-02-15] MEDS: Polyethylene Glycol 3350 17 GM PACKET PO (07:55)
[2022-02-15] MEDS: APIXABAN 2.5 MG TABLET (WCH) PO ×2 (07:55→18:03)
[2022-02-15] MEDS: Ascorbic Acid 500 MG Tablet PO (07:56)
[2022-02-15] MEDS: Menthol/Lanolin/Calamine/Znox 113 GM Tube 1 APPLIC TOPICAL ×2 (08:00→19:37)
[2022-02-15] MEDS: Ferrous Sulfate 325 MG Tablet PO ×2 (12:45→18:04)
[2022-02-15 13:35] VITALS: BP 132/55; PULSE 71; RESP 18; TEMP 36.8; O2SAT 96
[2022-02-16] MEDS: Acetaminophen 500 MG Tablet 1000 MG PO ×3 (04:26→19:54)
[2022-02-16] MEDS: Levothyroxine 75 MCG Tablet PO (05:34)
[2022-02-16 06:02] LABS: Absolute Lymphocyte Count 1.24 X10^3/uL (0.83-4.51); Absolute Neutrophil Count 1.7 X10^3/uL (2.0-7.7); Basophil# 0.04 X10^3/uL; Basophil% 1.1 % (0-1); Eosinophil# 0.14 X10^3/uL; Eosinophils% 3.8 % (0-5); Hematocrit 33.5 % (37-47); Hemoglobin 10.5 g/dL (12.0-15.0); Lymphocyte # 1.24 X10^3/ul (0.83-4.51); Lymphocyte % 33.9 % (19-41); Mean Corp Hgb Conc 31.3 g/dL (32-36); Mean Corpuscular Hgb 30.1 pg (27.0-32.0); Mean Platelet Vol. 9.3 fl (6.2-12.0); Monocyte# 0.49 X10^3/uL; Monocyte% 13.4 % (0-10); NRBC Flagged by Analyzer 0 % (0-5); Neutrophil # 1.73 X10^3/uL (2.7-7.7); Neutrophil % 47.3 % (47-70); Platelet Count 395 K/mm3 (150-450); RBC Distribution Width CV 15.8 % (11.6-14.6); RBC Distribution Width SD 55.8 fl (35.1-43.9); Red Blood Count 3.49 M/mm3 (4.2-5.4); White Blood Count 3.7 K/mm3 (4.4-11.0)
[2022-02-16 06:35] LABS: Anion Gap 5 (5-15); BUN 12 mg/dL (7-18); BUN/Creat Ratio 21.5 RATIO (10-20); Calcium,Total 9.2 mg/dL (8.5-10.1); Chloride 108 mmol/L (98-107); Creatinine, Serum 0.56 mg/dL (0.55-1.02); EST Glomerular Filtration Rate 112 mL/min (>60); Est Glom Filt Rate - Afr Amer 136 mL/min (>60); Glucose 94 mg/dL (74-106); Potassium 3.6 mmol/L (3.5-5.1); Sodium Level 139 mmol/L (136-145)
[2022-02-16] MEDS: oxyCODONE 5 MG Tablet PO (08:20)
[2022-02-16] MEDS: Polyethylene Glycol 3350 17 GM PACKET PO (08:22)
[2022-02-16] MEDS: Ergocalciferol 1.25 MG (50, 000 UNIT) Capsule PO (08:22)
[2022-02-16] MEDS: APIXABAN 2.5 MG TABLET (WCH) PO ×2 (08:22→17:34)
[2022-02-16] MEDS: Ascorbic Acid 500 MG Tablet PO (08:22)
[2022-02-16] MEDS: Menthol/Lanolin/Calamine/Znox 113 GM Tube 1 APPLIC TOPICAL ×2 (08:25→19:55)
[2022-02-16 12:58] VITALS: BP 110/50; PULSE 77; RESP 16; TEMP 36.6; O2SAT 95
[2022-02-16] MEDS: Ferrous Sulfate 325 MG Tablet PO ×2 (13:17→17:34)
[2022-02-16] MEDS: Ondansetron ODT 4 MG Tablet PO (18:03)
[2022-02-16] MEDS: Calcium Carbonate 500 MG Tablet PO (19:58)
[2022-02-16 20:00] VITALS: RESP 18
[2022-02-17 05:36] VITALS: BP 121/50; PULSE 80; RESP 18; TEMP 36; O2SAT 96
[2022-02-17] MEDS: Levothyroxine 75 MCG Tablet PO (05:38)
[2022-02-17] MEDS: Acetaminophen 500 MG Tablet 1000 MG PO ×3 (05:38→20:35)
[2022-02-17] MEDS: APIXABAN 2.5 MG TABLET (WCH) PO ×2 (08:19→17:26)
[2022-02-17] MEDS: Ascorbic Acid 500 MG Tablet PO (08:20)
[2022-02-17] MEDS: Polyethylene Glycol 3350 17 GM PACKET PO (08:20)
--- NOTE | 2022-02-17 10:28 | CASEMGMT ---
Social Work Insurance issued LCD 02/19, DC 02/20. Spoke with pt and son/DIL about DC home. All in agreement. Son to transport. Recommending [facility] - pt requesting [facility] and JOHNIE, BSC. SW made referral via phone and [employer] to [facility] PT/OT/ST/SN/CHÁVEZ. Via [facility] to [facility] for DME. Plan: DC home alone 02/20, [facility] PT/OT/ST/SN/CHÁVEZ, FWW, BSC Tabitha Arvizu, MANAGER SERVICES INVESTMENT CONSULTANT
[2022-02-17 10:50] VITALS: PULSE 68; RESP 16; O2SAT 97
[2022-02-17] MEDS: Menthol/Lanolin/Calamine/Znox 113 GM Tube 1 APPLIC TOPICAL ×2 (10:50→20:36)
[2022-02-17] MEDS: Ferrous Sulfate 325 MG Tablet PO ×2 (11:57→17:26)
[2022-02-17] MEDS: oxyCODONE 5 MG Tablet PO ×2 (12:56→23:34)
[2022-02-17 14:18] VITALS: BP 127/62; PULSE 77; RESP 16; TEMP 36.5; O2SAT 96
--- NOTE | 2022-02-17 18:25 | DS.PCM_ITS ---
Providers Date of Admission: 02/01/22 Primary Care Physician: Dr. Lucio Ayoub MD Reason For Visit: HIP FRACTURE, HYPOKALEMIA Diagnosis Discharge Diagnosis (1) Debility: Status: Acute Code(s): R53.81 - Other malaise (2) Closed right hip fracture: Status: Acute Code(s): S72.001A - Fracture of unspecified part of neck of right femur, initial encounter for closed fracture (3) Hypothyroidism: Status: Acute Code(s): E03.9 - Hypothyroidism, unspecified (4) Iron deficiency anemia: Status: Acute Code(s): D50.9 - Iron deficiency anemia, unspecified Plan 76 year old female with below past medical history hospitalized for right hip fracture, underwent right hip cephalo-medullary fixation 01/29/[address] Salas, admitted to TCU with debility, here for rehabilitation, strengthening, prior to discharge home alone. * Debility - PT/OT. * Pain - Tylenol 1000mg tid, Oxycodone 5mg q4h prn pain (6-10). * Bowel - Miralax 17gm daily, senna/colace 2 tablets bid, MOM 30ml daily prn. * Adult immunization - Administer pneumonia vaccine, covid19 vaccine, flu vaccine as appropriate. * DVT prophylaxis - Eliquis 2.5mg bid thru 02/20/2022. * Iron deficiency anemia - Ferrous sulfate 325mg bid, Vitamin C 500mg daily. * Nutrition - Ensure Plus 120ml po 4x/day. * Vitamin D deficiency - Vitamin D 1.25mg per week. * Hypothyroidism - Levothyroxine 75mcg daily. Medications at Discharge Home Medications levothyroxine 75 mcg tablet 75 mcg PO DAILY THYROID 03/11/20 apixaban 5 mg tablet (Eliquis) 2.5 mg PO BID@0800,1800 2 days #2 tabs 02/17/22 ascorbic acid (vitamin C) 500 mg tablet 500 mg PO DAILY@0800 30 days #30 tabs 02/17/22 ferrous sulfate 325 mg (65 mg iron) tablet (FeroSul) 325 mg PO BID@1245,1745 30 days #60 tabs 02/17/22 oxycodone 5 mg tablet 5 mg PO Q4H PRN PRN Pain Score 6-10 3 days #18 tabs 02/17/22 polyethylene glycol 3350 17 gram oral powder packet 17 g PO DAILY@0800 30 days #30 ea 02/17/22 sennosides 8.6 mg-docusate sodium 50 mg tablet (Stool Softener-Stimulant Laxative) 2 tab PO BID@0800,1800 30 days #120 tabs 02/17/22 Hospital Course Operations - (Right hip cephalo-medullary nail fixation.) Procedures None Summary of Care Provided Minutes Spent on Discharge: 35 Hospital Course: 76 year old female with below past medical history hospitalized for right hip fracture, underwent right hip cephalo-medullary fixation 01/29/[address] Salas, admitted to TCU with debility, here for rehabilitation, strengthening, prior to discharge home alone. Discharge home alone 02/20/2022, [facility] PT/O T/ST/SN/CHÁVEZ, Front wheeled walker, bedside commode. Physical Exam Const alert General Appearance: cooperative HEENT normocephalic Eyes PERRL and EOMs intact bilaterally Neck supple, no JVD and no carotid bruits Resp normal respiratory effort, normal air movement and clear to auscultation bilaterally Cardio regular rate and regular rhythm GI normal to inspection, nondistended, normoactive bowel sounds, non-tender and non-distended Extremity normal capillary refill General Extremity: Negative for edema Skin no rashes or lesions noted General Skin Exam: no breakdown Psych affect normal Appearance: appropriate Weight / BMI Weight Weight: 70.125 kg ABG / Lab / Microbiology Data Result Diagrams: 02/16/22 05:17 02/16/22 05:17 Microbiology: Microbiology 02/05/22 08:35 Nasal Secretion SARS-CoV-2 Antigen (Rapid) - Final 02/03/22 07:56 Nasal Secretion SARS-CoV-2 Antigen (Rapid) - Final 02/01/22 21:49 Nasal Secretion SARS-CoV-2 Antigen (Rapid) - Final D/C Instructions Discharge Diet: No restrictions Discharge Activity: Return to Normal Activity, May Shower and Use Walker Weight Bearing Status: Weight bearing as tolerated Call your doctor if you observe: Fever of 101 or Higher, Inability to urinate, Inability to have a bowel movement, Shortness of breath, Dizziness, Fainting spells, Swelling in the ankles, Chest pain and Uncontrolled pain Additional Instructions: Discharge home alone 02/20/2022, [facility] PT/OT/ST/SN/CHÁVEZ, Front wheeled walker, bedside commode. Please Follow Up With: DR AYOUB When: 02/22/2022. Meaningful Use Info Meaningful Use Diagnoses (Choose all that apply): None applicable Discharge Plan Admission Admit Date/Time: 02/01/22 20:20 Primary Reason for Your Visit: Debility. Attending Provider: Lucio Ayoub Chi Primary Care Provider: Lucio Ayoub Chi Instructions Additional Instructions / Restrictions: Discharge home alone 02/20/2022, [facility] PT/OT/ST/SN/CHÁVEZ, Front wheeled walker, bedside commode. Discharge Orders/Prescriptions Prescriptions: New Eliquis 5 mg Tablet 2.5 mg PO BID@0800,1800 2 Days Qty: 2 0RF ascorbic acid (vitamin C) 500 mg Tablet 500 mg PO DAILY@0800 30 Days Qty: 30 0RF ferrous sulfate [FeroSul] 325 mg (65 mg iron) Tablet 325 mg PO BID@1245,1745 30 Days Qty: 60 0RF polyethylene glycol 3350 17 gram Powder In Packet 17 g PO DAILY@0800 30 Days Qty: 30 0RF oxycodone 5 mg Tablet 5 mg PO Q4H PRN PRN (Reason: Pain Score 6-10) 3 Days Qty: 18 0RF sennosides-docusate sodium [Stool Softener-Stimulant Laxat] 8.6-50 mg Tablet 2 tab PO BID@0800,1800 30 Days Qty: 120 0RF Continued levothyroxine 75 mcg tablet 75 mcg PO DAILY Discontinued oxycodone 5 mg tablet 5 mg PO Q6H PRN (Reason: pain) 1 Days Qty: 4 0RF acetaminophen 500 mg tablet 1,000 mg PO TID ascorbic acid (vitamin C) [Vitamin C] 500 mg tablet 500 mg PO DAILY ferrous sulfate [Iron (ferrous sulfate)] 325 mg (65 mg iron) tablet 325 mg PO BID ergocalciferol (vitamin D2) 1,250 mcg (50,000 unit) capsule 1,250 mcg PO QWEEK Rx Instructions: x 6 weeks Eliquis 5 mg tablet 2.5 mg PO BID Rx Instructions: For total of 3 weeks starting on 01/30/2022 Ensure Plus High Protein 0.08 gram-1.5 kcal/mL liquid 120 ml PO 4X/DAY Referrals / Follow Up: Lucio Ayoub Chi, MD [Primary Care Provider] - Disposition Disposition (needs filled in before D/C Order can be placed): Home Health Service
[2022-02-18] MEDS: Levothyroxine 75 MCG Tablet PO (04:56)
[2022-02-18] MEDS: Acetaminophen 500 MG Tablet 1000 MG PO ×3 (05:59→22:50)
--- NOTE | 2022-02-18 06:37 | NURSING ---
Patient c/o frequent cough, expectorates small amount yellow sputum. LSCTA A&P. No resp distress observed or reported. Afebrile. Written communication left for Dr. Ayoub for AM rounds
[2022-02-18 06:40] VITALS: TEMP 37.1
[2022-02-18] MEDS: Polyethylene Glycol 3350 17 GM PACKET PO (07:43)
[2022-02-18] MEDS: Ascorbic Acid 500 MG Tablet PO (07:43)
[2022-02-18] MEDS: APIXABAN 2.5 MG TABLET (WCH) PO ×2 (07:43→17:47)
[2022-02-18] MEDS: Menthol/Lanolin/Calamine/Znox 113 GM Tube 1 APPLIC TOPICAL ×2 (07:47→23:08)
[2022-02-18] MEDS: Doxycycline 100 MG CAPSULE PO ×2 (08:54→17:47)
[2022-02-18] MEDS: Ferrous Sulfate 325 MG Tablet PO ×2 (13:30→17:47)
[2022-02-18] MEDS: oxyCODONE 5 MG Tablet PO (13:32)
[2022-02-18 13:41] VITALS: BP 153/60; PULSE 82; RESP 16; TEMP 36.9; O2SAT 94
[2022-02-18 22:30] VITALS: PULSE 74; RESP 18; O2SAT 94
[2022-02-19] MEDS: oxyCODONE 5 MG Tablet PO ×2 (03:52→14:36)
[2022-02-19] MEDS: Levothyroxine 75 MCG Tablet PO (03:52)
[2022-02-19] MEDS: Acetaminophen 500 MG Tablet 1000 MG PO ×2 (06:21→13:12)
[2022-02-19] MEDS: Doxycycline 100 MG CAPSULE PO ×2 (06:21→16:58)
[2022-02-19] MEDS: Polyethylene Glycol 3350 17 GM PACKET PO (09:52)
[2022-02-19] MEDS: Menthol/Lanolin/Calamine/Znox 113 GM Tube 1 APPLIC TOPICAL (09:52)
[2022-02-19] MEDS: APIXABAN 2.5 MG TABLET (WCH) PO ×2 (09:52→16:58)
[2022-02-19] MEDS: Ascorbic Acid 500 MG Tablet PO (09:52)
[2022-02-19 11:10] VITALS: PULSE 68; RESP 16; O2SAT 96
[2022-02-19] MEDS: Ferrous Sulfate 325 MG Tablet PO ×2 (13:12→16:58)
--- NOTE | 2022-02-19 13:47 | CASEMGMT ---
Social Work BIMS () and PHQ-9 (06/14) completed for MDS assessment. Tabitha Arvizu MSW TENSION WORKER
[2022-02-19 15:39] VITALS: BP 140/72; PULSE 77; RESP 16; TEMP 36.8; O2SAT 96
[2022-02-20] MEDS: oxyCODONE 5 MG Tablet PO ×2 (03:03→11:27)
[2022-02-20] MEDS: Levothyroxine 75 MCG Tablet PO (05:48)
[2022-02-20] MEDS: Doxycycline 100 MG CAPSULE PO (06:53)
[2022-02-20] MEDS: Acetaminophen 500 MG Tablet 1000 MG PO ×2 (06:53→13:45)
[2022-02-20] MEDS: Polyethylene Glycol 3350 17 GM PACKET PO (09:38)
[2022-02-20] MEDS: Ascorbic Acid 500 MG Tablet PO (09:39)
[2022-02-20] MEDS: APIXABAN 2.5 MG TABLET (WCH) PO (09:39)
[2022-02-20] MEDS: Ferrous Sulfate 325 MG Tablet PO (13:45)
[2022-02-20 14:00] VITALS: BP 153/60; PULSE 87; RESP 18; TEMP 37.1; O2SAT 95
== END 2022-02-20 14:00 | disposition home health service (06) | DRG 561 ==
PROVIDERS: Admitting Provider Family Medicine Geriatric Medicine; PCP Family Medicine Geriatric Medicine; Visit Provider Family Medicine Geriatric Medicine
DX: S72.001D Fracture of unspecified part of neck of right femur, subsequent encounter for closed fracture with routine healing (principal); B97.4 Respiratory syncytial virus as the cause of diseases classified elsewhere; D50.9 Iron deficiency anemia, unspecified; E03.9 Hypothyroidism, unspecified; E55.9 Vitamin D deficiency, unspecified; W19.XXXD Unspecified fall, subsequent encounter; J40 Bronchitis, not specified as acute or chronic; Z87.891 Personal history of nicotine dependence; Z79.01 Long term (current) use of anticoagulants; Z79.899 Other long term (current) drug therapy
CPT/HCPCS: 36415; 80048; 85014; 85018; 85025; 87070; 87205; 87426; 87633; 87811; 92507; 96125; 97110; 97116; 97129; 97130; 97162; 97166; 97530; 97535; 97802; 99406; A4216

== ENCOUNTER → 2022-02-12 | Outpatient (CLI) | payer MEDICARE, SELFPAY ==
--- NOTE | 2022-02-12 12:51 | VDLE_ITS ---
Reason For Study: LEG PAIN RIGHT LEFT GSV is normal. CFV is compressible, spontaneous, phasic, CFV is compressible, spontaneous, phasic, competent, and demonstrates normal competent and demonstrates normal augmentation. augmentation. FV is compressible, spontaneous, phasic, competent and demonstrates normal augmentation. POP V is compressible, spontaneous, phasic, competent and demonstrates normal augmentation. T/P Trunk is compressible. PTV is compressible. RT PerV is compressible. Procedure Exam performed portable in patient room. This is a venous duplex using B-mode, color flow and spectral Doppler. The exam was diagnostic. A preliminary report was called and/or faxed to TCU Charge. VL/Venous Duplex US, Unilateral Interpretation Summary There is no evidence of right lower extremity deep vein thrombosis. Right great saphenous vein appears patent and compressible segmentally. Normal venous flow left common fem oral vein Ordering Physician: Carlos Shah Referring Physician: Lucio Ayoub Chi Performed By: Jaswinder Mascorro RVT
== END | disposition home or self-care (01) ==
LOC: CVS 12:51
PROVIDERS: PCP Family Medicine Geriatric Medicine; Visit Provider Physician Assistant
DX: M79.661 Pain in right lower leg (principal)
CPT/HCPCS: 93971

== ENCOUNTER → 2022-04-19 | Outpatient (CLI) | payer MEDICARE, SELFPAY ==
[2022-04-19 17:15] LABS: Absolute Lymphocyte Count 2.08 X10^3/uL (0.83-4.51); Absolute Neutrophil Count 4.7 X10^3/uL (2.0-7.7); Basophil# 0.03 X10^3/uL; Basophil% 0.4 % (0-1); Eosinophil# 0.14 X10^3/uL; Eosinophils% 1.9 % (0-5); Hemoglobin 13.4 g/dL (12.0-15.0); Lymphocyte # 2.08 X10^3/ul (0.83-4.51); Lymphocyte % 27.7 % (19-41); Mean Corp Hgb Conc 31.9 g/dL (32-36); Mean Corpuscular Hgb 29.4 pg (27.0-32.0); Mean Corpuscular Volume 92.1 fL (81-99); Mean Platelet Vol. 10.2 fl (6.2-12.0); Monocyte# 0.58 X10^3/uL; Monocyte% 7.7 % (0-10); NRBC Flagged by Analyzer 0 % (0-5); Neutrophil # 4.66 X10^3/uL (2.7-7.7); Platelet Count 338 K/mm3 (150-450); RBC Distribution Width CV 13.2 % (11.6-14.6); RBC Distribution Width SD 44.7 fl (35.1-43.9); Red Blood Count 4.56 M/mm3 (4.2-5.4); White Blood Count 7.5 K/mm3 (4.4-11.0)
[2022-04-19 17:23] LABS: Vitamin D,25 Hydroxy 30.4 ng/mL
[2022-04-19 17:36] LABS: ALB/GLOB Ratio 0.9 RATIO (0.9-2.4); AST(SGOT) 29 U/L (15-37); Alanine Aminotransfer ALT/SGPT 48 U/L (13-56); Albumin, Serum 3.4 g/dL (3.2-5.0); Alkaline Phosphatase 221 U/L (45-117); Anion Gap 11 (5-15); BUN 13 mg/dL (7-18); BUN/Creat Ratio 18.1 RATIO (10-20); Calcium,Total 9.4 mg/dL (8.5-10.1); Chloride 107 mmol/L (98-107); Creatinine, Serum 0.72 mg/dL (0.55-1.02); EST Glomerular Filtration Rate 84 mL/min (>60); Est Glom Filt Rate - Afr Amer 102 mL/min (>60); Globulin 3.9 g/dL (2.2-4.2); Glucose 92 mg/dL (74-106); Potassium 3.7 mmol/L (3.5-5.1); Protein, Total 7.3 g/dL (6.4-8.2); Sodium Level 141 mmol/L (136-145); Thyroid Stim Hormone (TSH) 0.24 uIU/mL (0.358-3.74)
== END | disposition home or self-care (01) ==
LOC: POLAB3 14:23
PROVIDERS: PCP Family Medicine Geriatric Medicine; Visit Provider Family Medicine Geriatric Medicine
DX: R53.83 Other fatigue (principal); E55.9 Vitamin D deficiency, unspecified
CPT/HCPCS: 36415; 80053; 82306; 84443; 85025

== ENCOUNTER → 2023-04-25 | Outpatient (CLI) | payer MEDICARE, SELFPAY ==
--- OUTSIDE RECORDS SUMMARY | 2023-04-25 13:33 | XMS RPT_ITS | CCD ---
Author Name Unknown Address [address] [place] [address] Organization [facility] Results Test Name Value Interpretation Reference Range Facil ity Summary Purpose Family History No Family History Records Found Advance Directives No Advanced Directives Records Found Additional Source Comments INFORMATION SOURCE (unrecogn ized section and content) FOR RECORDS PERTAINING TO PATIENTS WHO ARE OR HAVE BEEN ENROLLED IN A CHEMICAL DEPENDENCY/SUBSTANCEABUSE PROGRAM, SOME INFORMATION MAY BE OMITTED. This clinical summary was aggregated from multiple sources. Caution should be exercised in using it in the provision of clinical care. This summary normalizes information from multiple sources, and as a consequence, information in this document may materially change the coding, format and clinical context of patient data. In addition, data may be omitted in some cases. CLINICAL DECISIONS SHOULD BE BASED ON THE PRIMARY CLINICAL RECORDS. [employer] provides no warranty or guarantee of the accuracy or completeness of information in this document.
[2023-04-25 14:36] LABS: Absolute Lymphocyte Count 1.95 X10^3/uL (0.83-4.51); Absolute Neutrophil Count 3.7 X10^3/uL (2.0-7.7); Basophil# 0.06 X10^3/uL; Eosinophils% 1.6 % (0-5); Hematocrit 42.5 % (37-47); Hemoglobin 13.8 g/dL (12.0-15.0); Lymphocyte # 1.95 X10^3/ul (0.83-4.51); Lymphocyte % 31.4 % (19-41); Mean Corp Hgb Conc 32.5 g/dL (32-36); Mean Corpuscular Hgb 29.7 pg (27.0-32.0); Mean Corpuscular Volume 91.4 fL (81-99); Mean Platelet Vol. 10.2 fl (6.2-12.0); Monocyte# 0.38 X10^3/uL; Monocyte% 6.1 % (0-10); NRBC Flagged by Analyzer 0 % (0-5); Neutrophil # 3.72 X10^3/uL (2.7-7.7); Neutrophil % 59.7 % (47-70); Platelet Count 328 K/mm3 (150-450); RBC Distribution Width CV 12.9 % (11.6-14.6); RBC Distribution Width SD 42.9 fl (35.1-43.9); Red Blood Count 4.65 M/mm3 (4.2-5.4); White Blood Count 6.2 K/mm3 (4.4-11.0)
[2023-04-25 14:55] LABS: Vitamin D,25 Hydroxy 27.8 ng/mL
[2023-04-25 15:04] LABS: ALB/GLOB Ratio 0.9 RATIO (0.9-2.4); AST(SGOT) 14 U/L (15-37); Alanine Aminotransfer ALT/SGPT 40 U/L (13-56); Albumin, Serum 3.9 g/dL (3.2-5.0); Alkaline Phosphatase 146 U/L (45-117); Anion Gap 9 (5-15); BUN 14 mg/dL (7-18); BUN/Creat Ratio 16.4 RATIO (10-20); Calcium,Total 9.8 mg/dL (8.5-10.1); Chloride 108 mmol/L (98-107); Creatinine, Serum 0.85 mg/dL (0.55-1.02); EST Glomerular Filtration Rate 69 mL/min (>60); Est Glom Filt Rate - Afr Amer 83 mL/min (>60); Globulin 4.4 g/dL (2.2-4.2); Glucose 101 mg/dL (74-106); Potassium 3.9 mmol/L (3.5-5.1); Protein, Total 8.3 g/dL (6.4-8.2); Sodium Level 140 mmol/L (136-145)
== END | disposition home or self-care (01) ==
LOC: POLAB3 13:03
PROVIDERS: PCP Family Medicine Geriatric Medicine; Visit Provider Family Medicine Geriatric Medicine
DX: R53.83 Other fatigue (principal); E55.9 Vitamin D deficiency, unspecified
CPT/HCPCS: 36415; 80053; 82306; 84443; 85025

== ENCOUNTER 2023-06-02 08:55 | Emergency (ER) | payer MEDICARE, SELFPAY ==
[2023-06-02 08:56] VITALS: BP 151/79; PULSE 83; RESP 14; TEMP 36.1; O2SAT 99
--- NOTE | 2023-06-02 09:13 | EX.ED.UPPERE ---
HPI History of Present Illness HPI Narrative: Patient presents with a laceration to her right thumb that occurred today. Patient states she was cutting cabbage when she accidentally cut her right thumb. Patient states she is right-hand dominant. Patient is unsure of her last tetanus. Patient denies any paresthesias or weakness. Patient states the bleeding has been persistent. Patient states nothing makes it better nothing makes it worse. Patient denies any pain. Chief Complaint: Laceration Informant: patient Occured/Mechanism Comment: Accidentally cut with a knife Onset/Context/Timing Onset: Today Context: Sudden Onset Timing: Continuous Location: Right thumb Current Severity: Gone Worsened by: Nothing Relieved by: Nothing Associated Symptoms Associated Symptoms: Negative for Parasthesia, Weakness or Loss of Funtion Narrative Tetanus Immunization: Unknown [facility] Medical History Abnormal mammogram of right breast Breast mass, right Contusion of right knee Family history of breast cancer Hemorrhoids Strain of right knee Thyroid disease Home Medications levothyroxine 75 mcg tablet 75 mcg PO DAILY THYROID 03/11/20 [History Last Taken Unknown] ascorbic acid (vitamin C) 500 mg tablet 500 mg PO DAILY@0800 30 days #30 tabs 02/17/22 [Rx Last Taken Unknown] ferrous sulfate 325 mg (65 mg iron) tablet (FeroSul) 325 mg PO BID@1245,1745 30 days #60 tabs 02/17/22 [Rx Last Taken Unknown] polyethylene glycol 3350 17 gram oral powder packet 17 g PO DAILY@0800 30 days #30 ea 02/17/22 [Rx Last Taken Unknown] sennosides 8.6 mg-docusate sodium 50 mg tablet (Stool Softener-Stimulant Laxative) 2 tab PO BID@0800,1800 30 days #120 tabs 02/17/22 [Rx Last Taken Unknown] Allergy/AdvReac Type Severity Reaction Status Date / Time No Known Allergies Allergy Verified 06/02/23 08:55 Family History Mother Breast cancer Sister Breast cancer Sister Lymphoma Surgical History History of partial hysterectomy History of right breast biopsy (~03/2020) Social History household members: none Smoking Status: Former smoker second hand exposure: No alcohol intake: never substance use type: does not use ROS ROS ED Constitutional Constitutional ED: Denies chills or fever(s) Eyes Eyes: Denies blurry vision or change in vision ENT ENT ED: Denies rhinorrhea or sore throat Cardiovascular Cardiovascular: Denies chest pain or palpitations Respiratory/Chest Respiratory/Chest: Denies cough or dyspnea Gastrointestinal Gastrointestinal: Denies nausea or vomiting Genitourinary Genitourinary ED: Denies dysuria or hematuria Musculoskeletal Musculoskeletal: Denies back pain or neck pain Integumentary Denies abscess or rash Neurologic Neurologic: Denies headache(s) or weakness Allergic/Immunologic Allergic/Immunologic ED: Denies mouth swelling or urticaria EXAM Physical Exam Const Vital Signs: 06/02/23 08:56 Temperature 96.9 F L Temperature Source Temporal Pulse Rate 83 Respiratory Rate 14 Blood Pressure 151/79 H Blood Pressure Mean 103 Pulse Ox 99 Oxygen Delivery Method Room Air Positive well nourished and well developed General Appearance ED: well developed and NAD HEENT Reports moist mucous membranes Neck full ROM and supple Neuro oriented x3, CN's II-XII intact bilaterally, moves all extremities, no focal motor deficits and no sensory deficits noted Sensorium / Orientation: alert Motor Exam: strength 5/5 throughout Psych mental status grossly normal Skin Skin Narrative: There is a 1.5 cm full-thickness linear laceration on the ulnar aspect of the distal phalanx of the right thumb. There is mild gapping of the wound margins. There is minimal bleeding noted. Strength is 5/5 in flexion extension of the MP and IP joints of the right thumb. Sensation was intact to light touch in all digits. Capillary refill was less than 2 seconds in all digits. MDM MDM MDM Narrative Medical decision making narrative: Upon chart review, it was noted the patient did have a tetanus booster on 12/04/2020. Therefore, patient does not require tetanus booster at this time. The wound was cleaned and irrigated with copious amounts of normal saline. The wound was anesthetized with 1% plain lidocaine via digital block. The wound was closed with 2 simple interrupted # 4-0 nylon sutures under sterile technique. Patient tolerated the procedure well. Bacitracin dressing was applied. Patient was instructed to follow-up with her primary care physician in 7 days for wound recheck and suture removal. Patient understood and was agreeable with the plan. All questions were answered. Discharge Plan Triage Chief Complaint: Laceration ED Provider: Chris Bliss Dx/Rx/DC Orders Clinical Impression: Laceration of right thumb without foreign body without damage to nail Instructions: ED Laceration, Hand: All Closures Prescriptions: No Action levothyroxine 75 mcg tablet 75 mcg PO DAILY ascorbic acid (vitamin C) 500 mg Tablet 500 mg PO DAILY@0800 30 Days Qty: 30 0RF ferrous sulfate [FeroSul] 325 mg (65 mg iron) Tablet 325 mg PO BID@1245,1745 30 Days Qty: 60 0RF polyethylene glycol 3350 17 gram Powder In Packet 17 g PO DAILY@0800 30 Days Qty: 30 0RF sennosides-docusate sodium [Stool Softener-Stimulant Laxat] 8.6-50 mg Tablet 2 tab PO BID@0800,1800 30 Days Qty: 120 0RF Primary Care Provider: Lucio Ayoub Chi Referrals: Lucio Ayoub Chi, MD [Primary Care Provider] - 7 Days for suture removal Disposition Disposition: Home, Self Care
[2023-06-02] MEDS: Lidocaine 1% (20 ml mdv) 20 ML Vial INFILT (12:27)
== END 2023-06-02 12:29 | disposition home or self-care (01) ==
PROVIDERS: Emergency Provider Emergency Medicine; PCP Family Medicine Geriatric Medicine; Visit Provider Emergency Medicine
DX: S61.011A Laceration without foreign body of right thumb without damage to nail, initial encounter (principal); Z87.891 Personal history of nicotine dependence; Z23 Encounter for immunization; Z90.710 Acquired absence of both cervix and uterus; E07.9 Disorder of thyroid, unspecified; W26.8XXA Contact with other sharp object(s), not elsewhere classified, initial encounter
CPT/HCPCS: 12001; 99283

== ENCOUNTER → 2023-06-09 | Outpatient (CLI) | payer MEDICARE, SELFPAY ==
[2023-06-09 17:38] LABS: Thyroid Stim Hormone (TSH) 3.69 uIU/mL (0.358-3.74)
== END | disposition home or self-care (01) ==
LOC: POLAB3 15:42
PROVIDERS: PCP Family Medicine Geriatric Medicine; Visit Provider Family Medicine Geriatric Medicine
DX: E03.9 Hypothyroidism, unspecified (principal)
CPT/HCPCS: 36415; 84443

== ENCOUNTER → 2023-06-29 | Outpatient (CLI) | payer MEDICARE, SELFPAY | END | disposition home or self-care (01) | LOC: PSN 11:39 | PROVIDERS: PCP Family Medicine Geriatric Medicine; Referring Provider Family Medicine Geriatric Medicine; Visit Provider Family Medicine Geriatric Medicine | DX: R68.83 Chills (without fever) (principal) | CPT/HCPCS: 87631 ==

== ENCOUNTER → 2023-07-14 | Outpatient (CLI) | payer MEDICARE, SELFPAY ==
--- NOTE | 2023-07-14 15:24 | RAD_ITS ---
INDICATION: SCIATICA EXAMINATION/TECHNIQUE: X-RAY - XR Hip Unilateral with Pelvis when performed; 2-3 Views COMPARISON: FINDINGS: PELVIC BONES: No displaced fracture, destructive or sclerotic lesions. Note that overlapping bowel shadows may however obscure fine detail. Sacroiliac joints are unremarkable. No widening of the pubic symphysis. HIPS: The articular structures are unremarkable. Status post ORIF with intramedullary prasanth in the right femur. No displaced fracture seen in this frontal view. SOFT TISSUES: No soft tissue swelling or gas. RAD/HIP, UNI W/ Pelvis 2-3 Views IMPRESSION: No evidence of displaced pelvic or hip fracture. Electronically Signed: Carter Pena DO at 20:44 EDT Reading Location ID and State: [facility] / [place] Tel [phone], Service support ,
--- NOTE | 2023-07-14 15:24 | RAD_ITS ---
STUDY: X-RAY - LUMBAR SPINE REASON FOR EXAM: Female, 77 years old. Low back pain, unspecified TECHNIQUE: 5 view(s) of the lumbar spine were obtained. COMPARISON: None FINDINGS: Normal lumbar lordosis. There is no substantial scoliosis. There is a normal alignment of the vertebrae. Mild compression of L1 with central depression of the superior endplate. Mild spurring at the lumbar vertebral endplates, more significantly at L1 and L2. Narrowed at L5-S1 disc space. The soft tissue structures are unremarkable. RAD/L/S Spine Min 4 Views IMPRESSION: Degenerative changes of the lumbar spine. Mild compression of L1. Electronically Signed: Carter Pena DO at 20:45 EDT ,
== END | disposition home or self-care (01) ==
LOC: RAD 15:22
PROVIDERS: PCP Family Medicine Geriatric Medicine; Referring Provider Family Medicine Geriatric Medicine; Visit Provider Family Medicine Geriatric Medicine
DX: S72.001A Fracture of unspecified part of neck of right femur, initial encounter for closed fracture (principal); M54.31 Sciatica, right side; M51.9 Unspecified thoracic, thoracolumbar and lumbosacral intervertebral disc disorder; M54.50 Low back pain, unspecified; X58.XXXA Exposure to other specified factors, initial encounter
CPT/HCPCS: 72110; 73502

== ENCOUNTER 2023-08-22 13:30 | Emergency (ER) | payer MEDICARE, MEDICAID, SELFPAY ==
[2023-08-22 13:31] VITALS: BP 153/76; PULSE 102; RESP 18; TEMP 36.6; O2SAT 94; BMI 30.8
--- NOTE | 2023-08-22 14:00 | RAD_ITS ---
STUDY: X-RAY - PELVIS AND RIGHT HIP REASON FOR EXAM: Female, 77 years old. Right hip pain following a fall. TECHNIQUE: 4 views of the pelvis and hip. COMPARISON: Comparison is made with prior study dated July 14, 2023. FINDINGS: There is a non-specific bowel gas pattern. Normal visualized soft tissue structures. Normal bilateral iliac wings, sacroiliac joints and visualized sacrum. Normal bilateral superior and inferior pubic rami. Normal pubic symphysis. Normal bilateral ischial tuberosities. Once again, the patient is status post open reduction and internal fixation of the right intertrochanteric fracture using a compression screw and intramedullary prasanth device. The fracture is healed. RAD/HIP, UNI W/ Pelvis 2-3 Views IMPRESSION: No acute abnormality is seen. Electronically Signed: John Winn MD at 14:45 EDT ,
--- NOTE | 2023-08-22 14:32 | EDS_ITS ---
HPI <MARGARITA Rodriguez - Last Filed: 08/22/23 19:05> History of Present Illness Chief Complaint: Lower Extremity Injury Narrative Narrative: Patient presenting due to right sided hip pain that she has had since this afternoon. She reports that she was out on her patio fixing a rug when she tripped and fell onto her right side. She did not hit her head and denies any LOC. She was unable to stand up due to pain in her right hip. EMS was called and brought her in for evaluation. She does report a history of a right-sided hip replacement. [facility] <MARGARITA Rodriguez - Last Filed: 08/22/23 19:05> [facility] Medical History Contusion of right knee Strain of right knee Hemorrhoids Family history of breast cancer Thyroid disease Breast mass, right Abnormal mammogram of right breast Home Medications ?Medication ?Instructions ?Recorded ?Last Taken ?Type levothyroxine 75 mcg tablet 75 mcg PO DAILY THYROID 03/11/20 Unknown History ascorbic acid (vitamin C) 500 mg 500 mg PO DAILY@0800 30 days #30 02/17/22 Unknown Rx tablet tabs ferrous sulfate 325 mg (65 mg 325 mg PO BID@1245,1745 30 days 02/17/22 Unknown Rx iron) tablet (FeroSul) #60 tabs polyethylene glycol 3350 17 gram 17 g PO DAILY@0800 30 days #30 ea 02/17/22 Unknown Rx oral powder packet sennosides 8.6 mg-docusate sodium 2 tab PO BID@0800,1800 30 days 02/17/22 Unknown Rx 50 mg tablet (Stool #120 tabs Softener-Stimulant Laxative) Allergy/AdvReac Type Severity Reaction Status Date / Time No Known Allergies Allergy Verified 06/02/23 08:55 Family History Mother Breast cancer Sister Breast cancer Sister Lymphoma Surgical History History of right breast biopsy (~03/2020) History of partial hysterectomy Social History household members: none Smoking Status: Former smoker second hand exposure: No alcohol intake: never substance use type: does not use ROS <MARGARITA Rodriguez - Last Filed: 08/22/23 19:05> ROS ED Constitutional Constitutional ED: Denies chills or fever(s) Cardiovascular Cardiovascular: Denies chest pain Respiratory/Chest Respiratory/Chest: Denies dyspnea Gastrointestinal Gastrointestinal: Denies abdominal pain Musculoskeletal Musculoskeletal: Reports arthralgias Integumentary Denies Abrasions Neurologic Neurologic: Denies paresthesias or weakness EXAM <MARGARITA Rodriguez Last Filed: 08/22/23 19:05> Physical Exam Const Vital Signs: 08/22/23 13:31 08/22/23 15:26 Temperature 97.9 F 98.2 F Temperature Source Temporal Pulse Rate 102 H 76 Respiratory Rate 18 14 Blood Pressure 153/76 H 154/82 H Blood Pressure Mean 101 106 Pulse Ox 94 97 Oxygen Delivery Method Room Air Positive well nourished, well developed and no apparent distress General Appearance ED: well developed HEENT Reports normocephalic and head/scalp atraumatic Mouth ED: Yes moist mucous membranes normal Eyes PERRL and EOMs intact bilaterally Neck full ROM and supple Chest Wall inspection of chest normal Resp normal respiratory effort and clear to auscultation bilaterally Cardio regular rate and regular rhythm GI soft to palpation, non-tender, non-distended and no masses Back/Spine normal ROM and normal to inspection Extremity normal to inspection and full ROM Extremity Narrative: Pain to palpation to the greater trochanter, negative logroll, no visible deformity. Right DP pulse 2+, good capillary refill, sensation intact. Neuro oriented x3, CN's II-XII intact bilaterally, moves all extremities, no focal motor deficits and no sensory deficits noted Sensorium / Orientation: awake and alert Psych mental status grossly normal and thought process normal Skin no rashes or lesions noted and no wounds <Dr. Tommy Huff DO - Last Filed: 08/22/23 15:33> Physical Exam Const Vital Signs: 08/22/23 13:31 08/22/23 15:26 Temperature 97.9 F 98.2 F Temperature Source Temporal Pulse Rate 102 H 76 Respiratory Rate 18 14 Blood Pressure 153/76 H 154/82 H Blood Pressure Mean 101 106 Pulse Ox 94 97 Oxygen Delivery Method Room Air MDM <MARGARITA Rodriguez Last Filed: 08/22/23 19:05> [facility] Narrative Medical decision making narrative: Patient presenting with right hip pain after a mechanical fall that occurred this afternoon. No visible deformity to the hip, x-ray will be obtained to rule out fracture. This is negative for any acute findings. She declined any analgesia here. She was ambulated and did well. She feels stable for discharge home, I have encouraged that she follow-up with her orthopedist in 1 week if no improvement of her symptoms. Supportive care measures were discussed, she can take Tylenol for pain as needed. Radiography X-Ray: Read by ED Physician Diagnostic Testing: Clinical Impression(s) from Imaging Studies Hip/Pelvis X-Ray 08/22/23 14:00 IMPRESSION: No acute abnormality is seen. Electronically Signed: John Winn MD at 14:45 EDT , <Dr. Tommy Huff, DO - Last Filed: 08/22/23 15:33> [facility] Radiography Diagnostic Testing: Clinical Impression(s) from Imaging Studies Hip/Pelvis X-Ray 08/22/23 14:00 IMPRESSION: No acute abnormality is seen. Electronically Signed: John Winn MD at 14:45 EDT , X-ray was read reviewed myself shows no evidence of obvious fracture dislocation. Treatment and Re-Evaluation :: ED attending note: I evaluated the patient in conjunction with the SHARI. I agree with his/her statements and above findings. I have personally performed a face to face assessment of the patient and have reviewed the SHARI Note. I performed a substantive portion of the visit including all aspects of the following. I personally saw the patient performed chart review, physical exam, reviewed labs, imaging (if obtained), and formulated a treatment and management plan. This note was generated with [employer] software. It may contain incorrect words, spelling, and punctuation that were not noted in review of the chart prior to signing. Discharge Plan Triage Chief Complaint: Lower Extremity Injury ED Midlevel Provider: Britt Austin ED Provider: Tommy Huff Dx/Rx/DC Orders Clinical Impression: Contusion of hip, right, Fall Instructions: ED Hip Contusion Prescriptions: No Action levothyroxine 75 mcg tablet 75 mcg PO DAILY ascorbic acid (vitamin C) 500 mg Tablet 500 mg PO DAILY@0800 30 Days Qty: 30 0RF ferrous sulfate [FeroSul] 325 mg (65 mg iron) Tablet 325 mg PO BID@1245,1745 30 Days Qty: 60 0RF polyethylene glycol 3350 17 gram Powder In Packet 17 g PO DAILY@0800 30 Days Qty: 30 0RF sennosides-docusate sodium [Stool Softener-Stimulant Laxat] 8.6-50 mg Tablet 2 tab PO BID@0800,1800 30 Days Qty: 120 0RF Primary Care Provider: Lucio Ayoub Chi Referrals: Lucio Ayoub Chi, MD [Primary Care Provider] - 1 Week if not improving Activity Restrictions/Additional Instructions: Return for any worsening of your symptoms. You can take Tylenol for pain as needed. Print Language: Estonian Disposition Disposition: Home, Self Care Discharge Date/Time: 08/22/23 15:35
[2023-08-22 15:26] VITALS: BP 154/82; PULSE 76; RESP 14; TEMP 36.8; O2SAT 97
== END 2023-08-22 15:35 | disposition home or self-care (01) ==
PROVIDERS: Emergency Provider Emergency Medicine; PCP Family Medicine Geriatric Medicine; Visit Provider Emergency Medicine
DX: S70.01XA Contusion of right hip, initial encounter (principal); W18.09XA Striking against other object with subsequent fall, initial encounter; Z87.891 Personal history of nicotine dependence
CPT/HCPCS: 73502; 99282

== ENCOUNTER → 2023-11-22 | Outpatient (CLI) | payer MEDICARE, MEDICAID, SELFPAY ==
--- NOTE | 2023-11-22 12:47 | MRI_ITS ---
STUDY: MRI BRAIN WITHOUT CONTRAST REASON FOR EXAM: Female, 78 years old. APHASIA TECHNIQUE: Standardized multiplanar fat and water weighted pulse sequences were obtained. COMPARISON: None. FINDINGS: Normal size of the ventricles and extra-axial spaces for the patient''s age. Normal white matter tracts of the supratentorial brain. There is no evidence for recent intracranial ischemia or other cause of cytotoxic edema on diffusion weighted imaging (DWI). Normal T2* images of the brain without demonstrated susceptibility artifact. There is no demonstrated hemosiderin stain. Normal bilateral basal ganglia. Normal thalami. There is no extra-axial fluid accumulation. Normal flow voids within the major intracranial circulation suggesting patency by spin echo criteria. Normal sella turcica, pituitary gland, infundibular stalk, optic chiasm and hypothalamus. Normal tectal plate and pineal gland. Normal midbrain, thomas and medulla. Normal cerebellum. Normal basal cisterns. Normal bilateral temporal bones. Normal bilateral internal auditory canals. No demonstrated orbital abnormality, within the constraints of a routine brain study. Normal visualized paranasal sinuses. Normal calvarium and skull base. Normal visualized soft tissue structures. Normal visualized upper cervical spine. MRI/Brain without Contrast IMPRESSION: Normal unenhanced MRI of the brain. Electronically Signed: Rex Montana MD at 13:01 EDT ,
== END | disposition home or self-care (01) ==
LOC: MRI 12:44
PROVIDERS: PCP Family Medicine Geriatric Medicine; Referring Provider Family Medicine Geriatric Medicine; Visit Provider Family Medicine Geriatric Medicine
DX: R47.01 Aphasia (principal)
CPT/HCPCS: 70551

== ENCOUNTER → 2024-01-03 | Outpatient (CLI) | payer MEDICARE, MEDICAID, SELFPAY ==
[2024-01-03 10:36] VITALS: BP 177/69; PULSE 72; RESP 16; TEMP 36.6; O2SAT 98; BMI 25.8
[2024-01-03] MEDS: Lidocaine 2% (5ml sdv) 5 ML VIAL.MPF INFILT (10:50)
[2024-01-03 11:30] VITALS: BP 189/77; PULSE 72; RESP 16; O2SAT 98
--- NOTE | 2024-01-03 11:43 | PCM.OP.PRO ---
Procedure Report Date of Procedure: 01/03/24 Assessment & Plan Assessment/Plan (1) Mild cognitive impairment: PLAN: PROCEDURE: Fluoroscopic guided Lumbar Puncture. ORDERING PROVIDER: Dr. Ayoub CLINICAL INDICATION: Female, 78 years old. Mild cognitive impairment. PROVIDER: WILFREDO Chang MEDICATIONS: 2% lidocaine administered subcutaneously for local anesthesia ACCESS SITE: Lower posterior back. NEEDLE: 22-gauge spinal needle. SPECIMEN: Approximately 12 mL clear colored CSF fluid. COMPLICATIONS: None immediate. FLUOROSCOPY TIME (if supplied): 1 minutes/58 seconds. 34.4 mGy The risks, benefits, and alternatives to the procedure were explained to the patient. The specific risks of bleeding, infection, and neurovascular injury were detailed and accepted. Witnessed informed consent was obtained. The patient was placed on the fluoroscopic table in the prone position. The level for needle entry was determined and marked. The overlying skin was cleaned with betadine and draped in the usual sterile fashion. 2% lidocaine was administered subcutaneously for local anesthesia. Under fluoroscopic guidance a 22-gauge spinal needle was advanced. The thecal sac was entered at the L 3-L 4 vertebral level. The inner stylet was removed. There was spontaneous flow of clear CSF fluid. The patient was placed in a reversed Trendelenburg position. Approximately 12 mL of cerebrospinal fluid was collected using gravity. The specimen was collected and submitted to the laboratory for further evaluation. The needle was withdrawn. Hemostasis was achieved and a sterile dressing placed. The patient tolerated the procedure well without any immediate complications. The patient was placed supine for nursing observation in the holding bay. IMPRESSION: Successful fluoroscopic-guided lumbar puncture. Procedures Radiology Radiology Xray Procedures: [id number] Lumbar Puncture Dx Multi Select Codes Radiology Rad Xray Procedures: [id number] Fluoroscopic guidance for needle placement
[2024-01-03 12:30] VITALS: BP 162/86; PULSE 70; RESP 18; O2SAT 98
== END | disposition home or self-care (01) ==
PROVIDERS: PCP Family Medicine Geriatric Medicine; Referring Provider Family Medicine Geriatric Medicine; Visit Provider Family Medicine Geriatric Medicine
DX: G30.9 Alzheimer's disease, unspecified (principal); G31.84 Mild cognitive impairment of uncertain or unknown etiology
CPT/HCPCS: 62328

== ENCOUNTER 2024-01-18 13:30 | Outpatient (RCR) | payer MEDICARE, MEDICAID, SELFPAY ==
--- NOTE | 2023-08-02 14:16 | HP.PTEVAL ---
Patient's Visit Information Visit Information Visit Information: NICOLE HUGGINS is a 77 year old F referred to Physical Therapy by Dr. Lucio Ayoub MD with a diagnosis of closed R hip fracture 1 year or so ago and sciatica. Date of Evaluation: 08/02/23 Physical Therapist: SHLOMO Urena Visit Plan Frequency: 3x /Week Duration: 2 Months Plan: 3X/ week for 8 weeks for R hip PROM/AAROM (SKC), trunk flexion stretches, LE strength including R hip and knee, gait training, functional training, with HEP and balance HEP: walk with longer smooth gait pattern and equal stance time on B LE's Subjective Subjective: Pt has been using her rolling walker for a year and a half now. She has R knee pain. She has a prasanth that goes down to her R knee (surgery was a year ago). She can't do hip flexion on the R side and that has been since she broke her hip. Her surgeon says that her surgery went fine. Dr Powell thinks that her back is the problem. Pt does not have back pain. She reports that her R foot does not do what she wants it to do. She has no pain right now. She sleeps in a bed and sits in a recliner Pain R hip pain: Pain Intensity (Out of 10): 0 Objective Objective: Gait: walks with a tall rolling walker with decrease stride length on the R and decrease stance time on the R LE. After much cueing she is able to take along stride with the R leg and put some more weight through it but has to stop freq because her R leg gets almost restless leg like (fatigue?) Sit to stand: pt is able to get up but used B UE's and uses mostly her L LE When standing she puts most of her weight through her L LE Pt is able to heel and toe raise B using B UE's Pt finds it hard to hip flex and causes some buttock pain and hip abd on the R she is able to do in a small ROM and increase pain in standing LE MMT: R hip flex 6 and L 13.3 R knee ext 19.9 and L 22.7 R knee flex 8.8 and L 14 R DF 16.9 and L DF 22.7 Supine hip Abd R 13.7 and L 18 Bridge X 5 (cramp in HS) Pt is able to do X 5 SLR with some fatigue SKC on the R pt is unable to do it due to pain/tightness Seated trunk flexion she is able to bend FW on the L but not on the R...tight/painful Balance/Special Test Scores Lower Extremity Functional Score: 8 Goals Goal 1:: I HEP Goal Time Frame: 6-8 Weeks Goal 2:: Increase LE strength (at the time of the eval: LE MMT: R hip flex 6 and L 13.3 R knee ext 19.9 and L 22.7 R knee flex 8.8 and L 14 R DF 16.9 and L DF 22.7 Supine hip Abd R 13.7 and L 18). Goal Time Frame: 6-8 Weeks Goal 3:: Be able to walk with a straight cane with CGA Goal Time Frame: 6-8 Weeks Goal 4:: Be able to stand and hip flex 2 X 10 without any pain or weakness Goal Time Frame: 6-8 Weeks Goal 5:: Be able to walk with equal stance time on B legs and continuous stride with least restrictive device Goal Time Frame: 6-8 Weeks Rehabilitation Potential Rehabilitation Potential: Good Anticipated Interventions Patient/Client Instruction: Educate patient on: Condition and Plan of Care For the Purpose of:: To decrease pain, To increase ROM, To improve nutrient delivery to tissue, To improve muscle performance and motor function, To improve ability to perform ADL's, To increase tolerance to activity/condition/position, To improve performance and independence with ADL's, To decrease level of supervision to perform tasks, To improve gait and locomotor functions, To improve health of tissue, To decrease soft tissue restriction, To increase flexibility/ROM, To improve balance and To improve safety with gait Therapeutic Exercise to Include: Strength training, Endurance training, Balance training, Postural training, Flexibilty training, Gait and locomotor training, Neuromotor development, Active ROM and Dynamic Lumbar Stabilization For the Purpose of:: To decrease pain, To increase ROM, To improve nutrient delivery to tissue, To increase oxygenation perfusion, To improve muscle performance and motor function, To improve ability to perform ADL's, To increase tolerance to activity/condition/position, To improve performance and independence with ADL's, To decrease level of supervision to perform tasks, To improve ability of physical actions for home/community/work/leisure, To improve gait and locomotor functions, To improve health of tissue, To decrease soft tissue restriction, To increase flexibility/ROM, To improve endurance, To improve balance and To improve safety with gait Functional Training to Include: Gait training For the Purpose of:: To improve gait and locomotor functions and To improve safety with gait Manual Therapy Techniques to Include: Passive ROM and Soft tissue mobilization For the Purpose of:: To decrease pain, To increase ROM, To improve nutrient delivery to tissue, To improve muscle performance and motor function, To improve ability to perform ADL's, To increase tolerance to activity/condition/position, To improve gait and locomotor functions, To improve health of tissue, To decrease soft tissue restriction, To increase flexibility/ROM, To improve balance and To improve safety with gait Text: Thank you for the opportunity to evaluate your patient. For Medicare and Medicare HMO plans, please review the plan of care and approve it. It will need to be FAXED BACK to us at [phone] for Medicare purposes. For Medicare only, by signing this I certify the plan of care. Please let me know if there are questions or concerns regarding this plan of care. Physician Signature: Date:
--- NOTE | 2023-08-31 15:08 | HP.PTREVAL_ITS ---
Re-Evaluation Intro: Dr. Lucio Ayoub MD, It has been my pleasure to treat NICOLE HUGGINS over the last 9 visits for closed R hip fracture 1 year or so ago and sciatica. Please see the progress note below for an update on the physical therapy plan of care! Subjective Subjective: Pt reports that he pain is better. Objective Objective/Function: Pt is walking with increase stance time on the R LE but it is not equal stance time Pt needed much encouragement to move that R leg into knee and hip flex/ext Plan Plan Plan: 3X/ week for 8 weeks for R hip PROM/AAROM (SKC), trunk flexion stretches, LE strength including R hip and knee, gait training, functional training, with HEP and balance Balance/Gait/Functional tests Balance/Special Test Scores Lower Extremity Functional Score: 11 Goals Goals Goal 1:: I HEP Goal Time Frame: 6-8 Weeks Goal 2:: Increase LE strength (at the time of the eval: LE MMT: R hip flex 6 and L 13.3 R knee ext 19.9 and L 22.7 R knee flex 8.8 and L 14 R DF 16.9 and L DF 22.7 Supine hip Abd R 13.7 and L 18). Goal Time Frame: 6-8 Weeks Goal 3:: Be able to walk with a straight cane with CGA Goal Time Frame: 6-8 Weeks Goal 4:: Be able to stand and hip flex 2 X 10 without any pain or weakness Goal Time Frame: 6-8 Weeks Goal 5:: Be able to walk with equal stance time on B legs and continuous stride with least restrictive device Goal Time Frame: 6-8 Weeks Goal Progress: Progressing Anticipated Interventions Anticipated Interventions Patient/Client Instruction: Educate patient on: Condition and Plan of Care For the Purpose of:: To decrease pain, To increase ROM, To improve nutrient delivery to tissue, To improve muscle performance and motor function, To improve ability to perform ADL's, To increase tolerance to activity/condition/position, To improve performance and independence with ADL's, To decrease level of supervision to perform tasks, To improve gait and locomotor functions, To improve health of tissue, To decrease soft tissue restriction, To increase flexibility/ROM, To improve balance and To improve safety with gait Therapeutic Exercise to Include: Strength training, Endurance training, Balance training, Postural training, Flexibilty training, Gait and locomotor training, Neuromotor development, Active ROM and Dynamic Lumbar Stabilization For the Purpose of:: To decrease pain, To increase ROM, To improve nutrient delivery to tissue, To increase oxygenation perfusion, To improve muscle performance and motor function, To improve ability to perform ADL's, To increase tolerance to activity/condition/position, To improve performance and indepe ndence with ADL's, To decrease level of supervision to perform tasks, To improve ability of physical actions for home/community/work/leisure, To improve gait and locomotor functions, To improve health of tissue, To decrease soft tissue restriction, To increase flexibility/ROM, To improve endurance, To improve balance and To improve safety with gait Functional Training to Include: Gait training For the Purpose of:: To improve gait and locomotor functions and To improve safety with gait Manual Therapy Techniques to Include: Passive ROM and Soft tissue mobilization For the Purpose of:: To decrease pain, To increase ROM, To improve nutrient delivery to tissue, To improve muscle performance and motor function, To improve ability to perform ADL's, To increase tolerance to activity/condition/position, To improve gait and locomotor functions, To improve health of tissue, To decrease soft tissue restriction, To increase flexibility/ROM, To improve balance and To improve safety with gait Re-Evaluation Ending Re-evaluation ending: Please do not hesitate to contact me at [phone] by phone or if you have questions or concerns regarding this new plan of care! Sincerely, SHLOMO Urena
--- NOTE | 2023-10-03 14:58 | HP.PTREVAL ---
Re-Evaluation Intro: Dr. Lucio Ayoub MD, It has been my pleasure to treat NICOLE HUGGINS over the last 22 visits for closed R hip fracture 1 year or so ago and sciatica. Please see the progress note below for an update on the physical therapy plan of care! Subjective Subjective: Pt reports that Dr want continued PT and Speech. She has not taken a pain pill today. She thinks that she is better. Pt does not like walking with a cane. Objective Objective/Function: LE MMT: R hip flex 8.3 and L 13.3 R knee ext 16.7 and L 22.7 R knee flex 9.3and L 14 R DF 17.6and L DF 22.7 Supine hip Abd R 13.7 and L 18 Gait: pt is able to walk with more equal stance time and step length with a walker with less verbal cues...more verbal cues needed when distracted. Standing hip flexion Plan Plan Plan: 3X/ week for additional 4 weeks for R hip PROM/AAROM (SKC), trunk flexion stretches, LE strength including R hip and knee, gait training, functional training, with HEP and balance Balance/Gait/Functional tests Balance/Special Test Scores Lower Extremity Functional Score: 33 Goals Goals Goal 1:: I HEP Goal Time Frame: 6-8 Weeks Goal Progress: Goal Met Goal 2:: Increase LE strength (at the time of the eval: LE MMT: R hip flex 6 and L 13.3 R knee ext 19.9 and L 22.7 R knee flex 8.8 and L 14 R DF 16.9 and L DF 22.7 Supine hip Abd R 13.7 and L 18). Goal Time Frame: 6-8 Weeks Goal 3:: Be able to walk with a straight cane with CGA Goal Time Frame: 6-8 Weeks Goal 4:: Be able to stand and hip flex 2 X 10 without any pain or weakness Goal Time Frame: 6-8 Weeks Goal 5:: Be able to walk with equal stance time on B legs and continuous stride with least restrictive device Goal Time Frame: 6-8 Weeks Goal Progress: Progressing Anticipated Interventions Anticipated Interventions Patient/Client Instruction: Educate patient on: Condition and Plan of Care For the Purpose of:: To decrease pain, To increase ROM, To improve nutrient delivery to tissue, To improve muscle performance and motor function, To improve ability to perform ADL's, To increase tolerance to activity/condition/position, To improve performance and independence with ADL's, To decrease level of supervision to perform tasks, To improve gait and locomotor functions, To improve health of tissue, To decrease soft tissue restriction, To increase flexibility/ROM, To improve balance and To improve safety with gait Therapeutic Exercise to Include: Strength training, Endurance training, Balance training, Postural training, Flexibilty training, Gait and locomotor training, Neuromotor development, Active ROM and Dynamic Lumbar Stabilization For the Purpose of:: To decrease pain, To increase ROM, To improve nutrient delivery to tissue, To increase oxygenation perfusion, To improve muscle performance and motor function, To improve ability to perform ADL's, To increase tolerance to activity/condition/position, To improve performance and independence with ADL's, To decrease level of supervision to perform tasks, To improve ability of physical actions for home/community/work/leisure, To improve gait and locomotor functions, To improve health of tissue, To decrease soft tissue restriction, To increase flexibility/ROM, To improve endurance, To improve balance and To improve safety with gait Functional Training to Include: Gait training For the Purpose of:: To improve gait and locomotor functions and To improve safety with gait Manual Therapy Techniques to Include: Passive ROM and Soft tissue mobilization For the Purpose of:: To decrease pain, To increase ROM, To improve nutrient delivery to tissue, To improve muscle performance and motor function, To improve ability to perform ADL's, To increase tolerance to activity/condition/position, To improve gait and locomotor functions, To improve health of tissue, To decrease soft tissue restriction, To increase flexibility/ROM, To improve balance and To improve safety with gait Re-Evaluation Ending Re-evaluation ending: Please do not hesitate to contact me at [phone] by phone or if you have questions or concerns regarding this new plan of care! Sincerely, SHLOMO Urena
--- NOTE | 2023-10-12 18:08 | HP.SP.EVAL ---
Visit History Visit Info Date of Eval: 10/12/23 Visit: 1 Patient's Approved Number of Visits: 10 Insurance Date Limit: 03/20/24 [employer] Operator: LUNA Martinez Attending Doctor: Referring Doctor: Reason for Referral: MILD COGNITIVE IMPAIRMENT. RX HERE Medical Diagnosis: Mild Cognitive Impairment Previous speech therapy: Yes Results: FROM D/C SUMMARY ON TCU IN FEBRUARY 2022: SKILLED INTERVENTION SUMMARY: Patient participated in 2.[address] cognitive therapy targeting attn, memory and executive function to safely return home w/ least amount of supervision. Prior to hospitalization, patient was (I) w/ all functional and complex cognitive tasks . Patient has been instructed and trained on compensatory strategies to improve cognition specifically attn, memory and executive function. PATIENT RESPONSE TO TX: Patient w/ excellent participation and highly motivated to return home. Patient w/ somewhat improved awareness of cognitive deficits and need for additional assistance upon d/c home. Patient has poor attention to tasks requiring frequent redirection to task at hand - poor attn leads patient to make careless errors while completing therapeutic tasks such as writing checks, counting money , reading clocks, etc. Patient has made consistent progress towards shelter and short term goals, however will need continued speech therapy at next level of care. D/C RECOMMENDATIONS: In order to facilitate return to prior level of living, patient requires continued ST services at next level of care in order to enhance pt.' s quality of life by an improved ability to promote (I) at home, perform functional and complex daily living tasks and safely return home w/ least amount of supervision. Recommending family to take over complex cognitive tasks including medications and finances at this time d/t cognitive impairment. F/u w/ PCP for further cognitive assessment. Pt. and family agreeable to continued ST at next level of care. Other Relevant Medical History/Diagnoses/Surgery: JAEL HUGGINS is a 78 year old female who presents to [email or web address] following a recent dx of mild cognitive impairment. She is a current physical therapy patient rehabing balance and closed R hip fracture from January 2022. Physical therapy referred to speech therapy d/t concerns with Pt having difficulty expressing herself. Jael endorses this and states that ever since her surgery she has felt difficulties with word finding. She states she doesn't feel it is completely memory related. States that it is difficult for her to find the words to relay a memory. Following her hip surgery in January 2022, she participated in 2.5 weeks of speech therapy on the Transitional Care Unit at [facility]. At the time of her d/c it was recommended that she participate in further outpatient speech therapy to address cognitive communication. Pt stating feeling like she didn't need additional therapy at that time but does now. Medications related to this diagnosis: Current Medications include: Levothyroxine Sodium (75MCG) for 1 tablet every day, Pantoprazole Sodium (40 MG) delay release for 1 tablet every day, and most recently prescribed on 09/29/23 Memantine HCl (10 MG) for 1/2 tab daily x7 days, then 1/2 tab bid x7 days, then 1/2 tab AM and 1/2 tab PM x7 days, then 1 tab bid continuously Smoking Status: Never smoker Diagnosis Diagnosis: Moderate Cognitive Communication Disorder Pain Is pain an issue with your current prescribed condition?: No Personal Preferred language: Welsh Patient Allergies Allergies Allergies: Allergies No Known Allergies Allergy (Verified 06/02/23 08:55) Objective Cog/Ling/Com Answer Yes/No Questions Simple: WNL Complex: Mild Naming Naming in categories: Moderate Conversational Tasks Conversational Tasks: Moderate Comments Comments: - Jael was tasked with with writing her name, address, and birthday -- spelling was all correct for this personal information, however hand writing legibility presents a mild deficit. Pt stating she has noticed it getting worse. - DIVERGENT NAMING: Jael was then tasked to write down 10 fruits. Pt requiring 20 min. to identify 10 fruits. Additionally, 9 of the 10 fruits she identified were spelled incorrectly (e.g., pare for pear, watmrel for watermelon, cornpope for cantaloupe, paineopar for pineapple). Observations of Pt during this task suggest this task for laborious for her to complete. In addition to word finding, Pt paused frequently in the middle of the word to think about how to spell it. Pt did not ask for assistance on any of the items. - Jael reporting that when she writes checks at home, she often scribbles out words spelled incorrectly or has to shred them and start over. Writing Functional writing correctly: Name and Address Words: Moderate Numerical Skills Counting Money: PLAN TO ASSESS NEXT SESSION Determining Change: PLAN TO ASSESS NEXT SESSION Telling Time: PLAN TO ASSESS NEXT SESSION Numerical Work Problems: PLAN TO ASSESS NEXT SESSION Balancing Checkbook [place]: PLAN TO ASSESS NEXT SESSION Verbal Sequencing Verbal Sequencing: Mild and Moderate Problem Solving Simple: Mild Judgement & Reasoning Judgement/Reasoning: Mild Cognitive Linguistic Supervision/Saftey Awareness of deficits: Mild Being left home alone: Mild Managing medications: Mild Managing finances: Mild and Moderate Executive Function Comments Comments: Currently, Jael states that she manages her own finances, manages her own medications, cooks her own food, and drives to therapy and to run errands. She states that her son or DIL visit her at least 1x/week to check on her. When ST asked questions about her medications, she stated that she only took one medicine, Levothyroxine. When asked if she takes Pantoprazole, she states she takes PRN. Education provided re: the importance of taking it daily as it builds on itself to prevent reflux. She showed understanding but suspect further education would be beneficial. When asked if she was on any other medication she stated Dr. Ayoub started her on a dementia medication last (her appt was two weeks ago), but had difficulty articulating the dosage. ST reviewed the dosage with her and wrote on a sticky note how the dosage will change for her on Tuesday. POC will include further assessment of medication management, finance management, safety awareness in the kitchen and around the house, and driving. Jael would also benefit from a full aphasia assessment to identify areas of difficulty with word finding. Suspect deficits in writing and anomia so a full evaluation of aphasia will better determine if there are other areas as well. Reference: Neuro-QoL instrument Radiation Oncology Patient Plan Plan Plan: Will recommend Pt for weekly outpatient speech therapy intervention address moderate expressive aphasia and moderate cognitive deficits. Pt would benefit from circumlocution training, verb network strength training, and immediate feedback to identify instances of paraphasia. Pt would also benefit from cognitive training to improve attention, executive functioning, safety awareness, deficit awareness. Without skilled intervention Pt is at risk for communicating basic, medical, emergent, social wants & needs, and interacting with family/friends at home and during social interactions. Recommendations Treatment Warranted: Yes Treatment Warranted: Receptive/ Expressive Language and Cognition Progress Prognosis: Good Frequency Frequency: 1-2x /Week Duration: 4 Months Patient/Family Goal Patient/Family Goal: Jael stating she would like to be able to remember the words she was going to say as well as work on her writing. Goals that are Established Determination:: Goals will be added/modified as deemed necessary and appropriate. Therapy will be discontinued when results of re-evaluation indicate therapy is no longer needed or lack of progress has been documented. Goal #1-5 Goal #1: Jael will participate in continued cognitive communication assessment to determine cognitive and expressive language areas of need. Education Patient has Indicated that the Following Identified Educational Needs: None The Patient has indicated that they have no educational or learning abilities that may effect their care.: Yes Patient Instruction Patient Education: Diagnosis, Treatment Plan and Goals Person Taught: Patient Teaching Method: Discussion and Demonstration Response to teaching: Return demonstration and Verbalize understanding
--- NOTE | 2023-10-21 13:59 | HP.PTREVAL_ITS ---
Re-Evaluation Intro: Dr. Lucio Ayoub MD, It has been my pleasure to treat NICOLE HUGGINS over the last 27 visits for closed R hip fracture 1 year or so ago and sciatica. Please see the progress note below for an update on the physical therapy plan of care! Subjective Subjective: Pt had speech prior to PT. Pt is doing much better. She thinks that her speech is coming along. She feels that her walking is coming along. She is driving up to PT/Speech. She wants to continue but be seen twice a week now instead of three times. Objective Objective/Function: R hip flex 9.5 and L 16.5 R knee ext 19.9 and L 22.7 R knee flex 12.9 and L 16.9 R DF 21 and L DF 22.7 Supine hip Abd R 15.2 and L 18 Standing hip flexion 2 X 10 (fatigues after about 6 reps) Gait: walks with rolling walker with more fluid gait and not dragging her R leg anymore. She still walks with decrease stance time on the R. Plan Plan Plan: 2X/ week for 4 weeks for strength of R hip and knee, AROM of the R knee, balance, and gait mechancis Balance/Gait/Functional tests Balance/Special Test Scores Lower Extremity Functional Score: 44 Goals Goals Goal 1:: I HEP Goal Time Frame: 6-8 Weeks Goal Progress: Goal Met Goal 2:: Increase LE strength (at the time of the eval: LE MMT: R hip flex 6 and L 13.3 R knee ext 19.9 and L 22.7 R knee flex 8.8 and L 14 R DF 16.9 and L DF 22.7 Supine hip Abd R 13.7 and L 18). Goal Time Frame: 6-8 Weeks Goal Progress: Progressing Goal 3:: Be able to walk with a straight cane with CGA Goal Time Frame: 6-8 Weeks Goal Progress: Not Progressing Goal 4:: Be able to stand and hip flex 2 X 10 without any pain or weakness Goal Time Frame: 6-8 Weeks Goal Progress: Progressing Goal 5:: Be able to walk with equal stance time on B legs and continuous stride with least restrictive device Goal Time Frame: 6-8 Weeks Goal Progress: Progressing Anticipated Interventions Anticipated Interventions Patient/Client Instruction: Educate patient on: Condition and Plan of Care For the Purpose of:: To decrease pain, To increase ROM, To improve nutrient delivery to tissue, To improve muscle performance and motor function, To improve ability to perform ADL's, To increase tolerance to activity/condition/position, To improve performance and independence with ADL's, To decrease level of supervision to perform tasks, To improve gait and locomotor functions, To improve health of tissue, To decrease soft tissue restriction, To increase flexibility/ROM, To improve balance and To improve safety with gait Therapeutic Exercise to Include: Strength training, Endurance training, Balance training, Postural training, Flexibilty training, Gait and locomotor training, Neuromotor development, Active ROM and Dynamic Lumbar Stabilization For the Purpose of:: To decrease pain, To increase ROM, To improve nutrient delivery to tissue, To increase oxygenation perfusion, To improve muscle performance and motor function, To improve ability to perform ADL's, To increase tolerance to activity/condition/position, To improve performance and independence with ADL's, To decrease level of supervision to perform tasks, To improve ability of physical actions for home/community/work/leisure, To improve gait and locomotor functions, To improve health of tissue, To decrease soft tissue restriction, To increase flexibility/ROM, To improve endurance, To improve balance and To improve safety with gait Functional Training to Include: Gait training For the Purpose of:: To improve gait and locomotor functions and To improve safety with gait Manual Therapy Techniques to Include: Passive ROM and Soft tissue mobilization For the Purpose of:: To decrease pain, To increase ROM, To improve nutrient delivery to tissue, To improve muscle performance and motor function, To improve ability to perform ADL's, To increase tolerance to activity/condition/position, To improve gait and locomotor functions, To improve health of tissue, To decrease soft tissue restriction, To increase flexibility/ROM, To improve balance and To improve safety with gait Re-Evaluation Ending Re-evaluation ending: Please do not hesitate to contact me at [phone] by phone or Fax: if you have questions or concerns regarding this new plan of care! Sincerely, SHLOMO Urena
--- NOTE | 2023-11-14 14:22 | HP.SPREEV_ITS ---
Visit History Visit Info Date of Eval: 10/12/23 Visit: 1 Patient's Approved Number of Visits: 10 Insurance Date Limit: 03/20/24 Early Childhood Education Specialist: LUNA Martinez Attending Doctor: Referring Doctor: Reason for Referral: MILD COGNITIVE IMPAIRMENT. RX HERE Medical Diagnosis: Mild Cognitive Impairment Previous speech therapy: Yes Results: FROM D/C SUMMARY ON TCU IN FEBRUARY 2022: SKILLED INTERVENTION SUMMARY: Patient participated in 2.[address] cognitive therapy targeting attn, memory and executive function to safely return home w/ least amount of supervision. Prior to hospitalization, patient was (I) w/ all functional and complex cognitive tasks . Patient has been instructed and trained on compensatory strategies to improve cognition specifically attn, memory and executive function. PATIENT RESPONSE TO TX: Patient w/ excellent participation and highly motivated to return home. Patient w/ somewhat improved awareness of cognitive deficits and need for additional assistance upon d/c home. Patient has poor attention to tasks requiring frequent redirection to task at hand - poor attn leads patient to make careless errors while completing therapeutic tasks such as writing checks, counting money , reading clocks, etc. Patient has made consistent progress towards shelter and short term goals, however will need continued speech therapy at next level of care. D/C RECOMMENDATIONS: In order to facilitate return to prior level of living, patient requires continued ST services at next level of care in order to enhance pt.' s quality of life by an improved ability to promote (I) at home, perform functional and complex daily living tasks and safely return home w/ least amount of supervision. Recommending family to take over complex cognitive tasks including medications and finances at this time d/t cognitive impairment. F/u w/ PCP for further cognitive assessment. Pt. and family agreeable to continued ST at next level of care. Other Relevant Medical History/Diagnoses/Surgery: JAEL HUGGINS is a 78 year old female who presents to [facility] following a recent dx of mild cognitive impairment. She is a current physical therapy patient rehabing balance and closed R hip fracture from January 2022. Physical therapy referred to speech therapy d/t concerns with Pt having difficulty expressing herself. Jael endorses this and states that ever since her surgery she has felt difficulties with word finding. She states she doesn't feel it is completely memory related. States that it is difficult for her to find the words to relay a memory. Following her hip surgery in January 2022, she participated in 2.5 weeks of speech therapy on the Transitional Care Unit at [facility]. At the time of her d/c it was recommended that she participate in further outpatient speech therapy to address cognitive communication. Pt stating feeling like she didn't need additional therapy at that time but does now. Medications related to this diagnosis: Current Medications include: Levothyroxine Sodium (75MCG) for 1 tablet every day, Pantoprazole Sodium (40 MG) delay release for 1 tablet every day, and most recently prescribed on 09/29/23 Memantine HCl (10 MG) for 1/2 tab daily x7 days, then 1/2 tab bid x7 days, then 1/2 tab AM and 1/2 tab PM x7 days, then 1 tab bid continuously Smoking Status: Never smoker Diagnosis Diagnosis: Moderate Cognitive Communication Disorder; Aphasia Pain Is pain an issue with your current prescribed condition?: No Personal Preferred language: Citizen Of [place] Patient Allergies Allergies Allergies: Allergies No Known Allergies Allergy (Verified 06/02/23 08:55) Previous/Current Goals Goals 1-5 Previous Goal #1: Jael will participate in continued cognitive communication assessment to determine cognitive and expressive language areas of need. Goal 1 Status: SEE BELOW FOR A VARIETY OF ADDITIONAL TESTING AND THERAPY TASKS THAT DESCRIBE PT'S AREAS OF IMPROVEMENT: - Pt read the Grandfather passage aloud with 14 errors throughout the passage. - Pt also completed the MARLA (self administered gerocognitive exam). Pt presenting with severe dysgraphia, dyscalculia, implementing problem solving strategies just discussed with ST re: the short and long hands of a clock, having enough space for the numbers in her clock drawing, generating 12 animals (8/12 with 6 of them spelled incorrectly), and connecting 6/11 in a trail making task improving to 7/11 when she asked to try it again. - Jael participated in reading comprehension of short, simple stories via answer six questions per story. On the first story, Jael answered with 100% acc with 3/3 for open ended and 3/3 for yes/no, second story with 66% with 1/3 for open ended and 3/3 for yes/no with self correcting to 83% when asked to look at her answers again, and the third story with 83% with 3/3 for open ended and 2/3 for yes/no. Increased the complexity of reading comprehension task to moderate level. On the first story, Jael answered with 75% acc with 2/4 for open ended and 3/4 for yes/no, second story with 50% with 0/4 for open ended and 4/4 for yes/no. On the second story she increased to 3/[address] just reading the question out loud to her and then 4/4 when provided with min logical cues - math related to the story. - [place] Categories: 67% IND (16/24), which increased to 100% with min-mod cues for word finding strategies such as visualization and description. 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 ST tasking Jael with writing down the steps it would take to perm someone's hair as a writing sample and sequencing task. This took Jael 40 min. to complete with min cues. Jael with multiple misspellings and poor grammar. When ST had her verbalize the steps and ST dictate, her expressive language was more fluid but from a cognitive perspective she missed 4 steps to the perm process whereas when writing herself she only missed 1. Objective Cog/Ling/Com Answer Yes/No Questions Simple: WNL Complex: Mild Naming Naming in categories: Moderate Conversational Tasks Conversational Tasks: Moderate Comments Comments: - Jael was tasked with with writing her name, address, and birthday -- spelling was all correct for this personal information, however hand writing legibility presents a mild deficit. Pt stating she has noticed it getting worse. - DIVERGENT NAMING: Jael was then tasked to write down 10 fruits. Pt requiring 20 min. to identify 10 fruits. Additionally, 9 of the 10 fruits she identified were spelled incorrectly (e.g., pare for pear, watmrel for watermelon, cornpope for cantaloupe, paineopar for pineapple). Observations of Pt during this task suggest this task for laborious for her to complete. In addition to word finding, Pt paused frequently in the middle of the word to think about how to spell it. Pt did not ask for assistance on any of the items. - Jael reporting that when she writes checks at home, she often scribbles out words spelled incorrectly or has to shred them and start over. Writing Functional writing correctly: Name and Address Words: Moderate Numerical Skills Counting Money: PLAN TO ASSESS NEXT SESSION Determining Change: PLAN TO ASSESS NEXT SESSION Telling Time: PLAN TO ASSESS NEXT SESSION Numerical Work Problems: PLAN TO ASSESS NEXT SESSION Balancing Checkbook [place]: PLAN TO ASSESS NEXT SESSION Verbal Sequencing Verbal Sequencing: Mild and Moderate Problem Solving Simple: Mild Judgement & Reasoning Judgement/Reasoning: Mild Cognitive Linguistic Supervision/Saftey Awareness of deficits: Mild Being left home alone: Mild Managing medications: Mild Managing finances: Mild and Moderate Executive Function Comments Comments: Currently, Jael states that she manages her own finances, manages her own medications, cooks her own food, and drives to therapy and to run errands. She states that her son or DIL visit her at least 1x/week to check on her. When ST asked questions about her medications, she stated that she only took one medicine, Levothyroxine. When asked if she takes Pantoprazole, she states she takes PRN. Education provided re: the importance of taking it daily as it builds on itself to prevent reflux. She showed understanding but suspect further education would be beneficial. When asked if she was on any other medication she stated Dr. Ayoub started her on a dementia medication last (her appt was two weeks ago), but had difficulty articulating the dosage. ST reviewed the dosage with her and wrote on a sticky note how the dosage will change for her on Tuesday. POC will include further assessment of medication management, finance management, safety awareness in the kitchen and around the house, and driving. Jael would also benefit from a full aphasia assessment to identify areas of difficulty with word finding. Suspect deficits in writing and anomia so a full evaluation of aphasia will better determine if there are other areas as well. Reference: Neuro-QoL instrument Radiation Oncology Patient Plan Plan Plan: Will recommend Pt for weekly outpatient speech therapy intervention address moderate expressive aphasia and moderate cognitive deficits. Pt would benefit from circumlocution training, verb network strength training, and immediate feedback to identify instances of paraphasia. Pt would also benefit f rom cognitive training to improve attention, executive functioning, safety awareness, deficit awareness. Without skilled intervention Pt is at risk for communicating basic, medical, emergent, social wants & needs, and interacting with family/friends at home and during social interactions. Recommendations Treatment Warranted: Yes Treatment Warranted: Receptive/ Expressive Language and Cognition Progress Prognosis: Good Frequency Frequency: 1-2x /Week Duration: 4 Months Patient/Family Goal Patient/Family Goal: Jael stating she would like to be able to remember the words she was going to say as well as work on her writing. Goals that are Established Determination:: Goals will be added/modified as deemed necessary and appropriate. Therapy will be discontinued when results of re-evaluation indicate therapy is no longer needed or lack of progress has been documented. Goal #1-5 Goal #1: Jael will demonstrate use of word finding strategies to complete complex convergent and divergent naming tasks with 80% acc across 3 measured opportunities when given fading cues. Goal #2: Jael will generate 3 sentences when given a target verb following WHO+verb+WHAT structure with 5/6 targets given min cues across 3 consecutively measured sessions Goal #3: Jael will generate 3 additional pieces of information answering WHERE/WHEN/WHY of one self-created WHO+verb+WHAT sentence with 2 of the 3 questions answered independently across 3 consecutively measured sessions. Goal #4: Jael will read short passages and answer open-ended comprehension questions re: the material at 70% accuracy given min verbal and logical cues. Education Patient has Indicated that the Following Identified Educational Needs: None The Patient has indicated that they have no educational or learning abilities that may effect their care.: Yes Patient Instruction Patient Education: Diagnosis, Treatment Plan and Goals Person Taught: Patient Teaching Method: Discussion and Demonstration Response to teaching: Return Demonstration and Verbalize Understanding
--- NOTE | 2023-12-21 13:42 | HP.PTDCSUM ---
Discharge Summary D/C summary: It has been my pleasure to treat NICOLE HUGGINS referred by Dr. Lucio Ayoub MD, with the diagnosis of closed R hip fracture 1 year or so ago and sciatica for a total of 44 visit(s). Discharge Date: 12/21/23 Please see the following information for a summary of their discharge status. Subjective Subjective: She is doing Home exercises at the countertop Pain R hip pain: Pain Intensity (Out of 10): 3 R knee pain: Pain Intensity (Out of 10): 0 L knee pain: Pain Intensity (Out of 10): 0 L rib pain: Pain Intensity (Out of 10): 0 Overall Improvement % Improvement: 75 Objective Objective/Function: Gait: pt is walking with her walker with improved fluidity with her LE with a wheeled walker. She does not feel safe walking without a walker Pt still has slight pain with standing hip march but able to tolerate doing the exercise Goals Goal 1:: I HEP Goal Progress: Goal Met Goal 2:: Increase LE strength (at the time of the eval: LE MMT: R hip flex 6 and L 13.3 R knee ext 19.9 and L 22.7 R knee flex 8.8 and L 14 R DF 16.9 and L DF 22.7 Supine hip Abd R 13.7 and L 18). Goal Progress: Progressing Goal 3:: Be able to walk with a straight cane with CGA Goal Progress: Not Progressing Goal 4:: Be able to stand and hip flex 2 X 10 without any pain or weakness Goal Progress: Progressing Goal 5:: Be able to walk with equal stance time on B legs and continuous stride with least restrictive device Goal Progress: Progressing Plan Plan: DC PT to HEP D/C Information Discharge Comments: DC PT to HEP d/c sentence: If there are questions or concerns regarding this patient's physical therapy, please feel free to call me at [phone]. Thank you for the referral of this patient. Sincerely, Perla Silver, MPT Balance/Gait/Functional tests Balance/Special Test Scores Lower Extremity Functional Score: 31 Improvement % Improvement: 75
--- NOTE | 2024-01-18 12:31 | HP.SP.REEV ---
Visit History Visit Info Date of Eval: 10/12/23 Visit: 1 Patient's Approved Number of Visits: 10 Insurance Date Limit: 03/20/24 Coating Technician: AB Martinez Attending Doctor: Referring Doctor: Reason for Referral: MILD COGNITIVE IMPAIRMENT/APHASIA. RX HERE Medical Diagnosis: Mild Cognitive Impairment Previous speech therapy: Yes Results: FROM D/C SUMMARY ON TCU IN FEBRUARY 2022: SKILLED INTERVENTION SUMMARY: Patient participated in 2.[address] cognitive therapy targeting attn, memory and executive function to safely return home w/ least amount of supervision. Prior to hospitalization, patient was (I) w/ all functional and complex cognitive tasks . Patient has been instructed and trained on compensatory strategies to improve cognition specifically attn, memory and executive function. PATIENT RESPONSE TO TX: Patient w/ excellent participation and highly motivated to return home. Patient w/ somewhat improved awareness of cognitive deficits and need for additional assistance upon d/c home. Patient has poor attention to tasks requiring frequent redirection to task at hand - poor attn leads patient to make careless errors while completing therapeutic tasks such as writing checks, counting money , reading clocks, etc. Patient has made consistent progress towards technician terminal and repeater and short term goals, however will need continued speech therapy at next level of care. D/C RECOMMENDATIONS: In order to facilitate return to prior level of living, patient requires continued ST services at next level of care in order to enhance pt.' s quality of life by an improved ability to promote (I) at home, perform functional and complex daily living tasks and safely return home w/ least amount of supervision. Recommending family to take over complex cognitive tasks including medications and finances at this time d/t cognitive impairment. F/u w/ PCP for further cognitive assessment. Pt. and family agreeable to continued ST at next level of care. Other Relevant Medical History/Diagnoses/Surgery: NICOLE HUGGINS is a 78 year old female who presents to [facility] following a recent dx of mild cognitive impairment. She is a current physical therapy patient rehabing balance and closed R hip fracture from January 2022. Physical therapy referred to speech therapy d/t concerns with Pt having difficulty expressing herself. Nicole endorses this and states that ever since her surgery she has felt difficulties with word finding. She states she doesn't feel it is completely memory related. States that it is difficult for her to find the words to relay a memory. Following her hip surgery in January 2022, she participated in 2.5 weeks of speech therapy on the Transitional Care Unit at [facility]. At the time of her d/c it was recommended that she participate in further outpatient speech therapy to address cognitive communication. Pt stating feeling like she didn't need additional therapy at that time but does now. Medications related to this diagnosis: Current Medications include: Levothyroxine Sodium (75MCG) for 1 tablet every day, Pantoprazole Sodium (40 MG) delay release for 1 tablet every day, and most recently prescribed on 09/29/23 Memantine HCl (10 MG) for 1/2 tab daily x7 days, then 1/2 tab bid x7 days, then 1/2 tab AM and 1/2 tab PM x7 days, then 1 tab bid continuously Smoking Status: Never smoker Diagnosis Diagnosis: Moderate Cognitive Communication Disorder; Aphasia Pain Is pain an issue with your current prescribed condition?: No Personal Preferred language: Citizen Of [place] Patient Allergies Allergies Allergies: Allergies No Known Allergies Allergy (Verified 01/03/24 10:33) Previous/Current Goals Goals 1-5 Previous Goal #1: Nicole will demonstrate use of word finding strategies to complete complex convergent and divergent naming tasks with 80% acc across 3 measured opportunities when given fading cues. Goal 1 Status: Goal Progressing: [place] categories divergent namin% accuracy given moderate verbal cues. Previous Goal #2: Nicole will generate 3 sentences when given a target verb following WHO+verb+WHAT structure with 5/6 targets given min cues across 3 consecutively measured sessions Goal 2 Status: Goal Progressing: Generated first three sentences with WHO+verb+WHAT with 67% accuracy independently and improved to 100% accuracy with mod verbal and visual cues. Previous Goal #3: Nicole will generate 3 additional pieces of information answering WHERE/WHEN/WHY of one self-created WHO+verb+WHAT sentence with 2 of the 3 questions answered independently across 3 consecutively measured sessions. Goal 3 Status: Goal Progressing: Generated three additional pieces of information to answer WHERE/WHEN/WHY with 55%acc independently, increased to 100% accuracy with mod verbal and visual cues. Previous Goal #4: Nicole will read short passages and answer open-ended comprehension questions re: the material at 70% accuracy given min verbal and logical cues. Goal 4 Status: Goal Progressing: Nicole read a short passage and answered 4 comprehension questions with short responses pulled from the paragraph (not true/false) with 75% acc independently. She completed a second story with answering questions with 66% acc independently (2/3). Objective Cog/Ling/Com Answer Yes/No Questions Simple: WNL Complex: Mild Naming Naming in categories: Moderate Conversational Tasks Conversational Tasks: Moderate Comments Comments: - Nicole was tasked with with writing her name, address, and birthday -- spelling was all correct for this personal information, however hand writing legibility presents a mild deficit. Pt stating she has noticed it getting worse. - DIVERGENT NAMING: Nicole was then tasked to write down 10 fruits. Pt requiring 20 min. to identify 10 fruits. Additionally, 9 of the 10 fruits she identified were spelled incorrectly (e.g., pare for pear, watmrel for watermelon, cornpope for cantaloupe, paineopar for pineapple). Observations of Pt during this task suggest this task for laborious for her to complete. In addition to word finding, Pt paused frequently in the middle of the word to think about how to spell it. Pt did not ask for assistance on any of the items. - Nicole reporting that when she writes checks at home, she often scribbles out words spelled incorrectly or has to shred them and start over. Writing Functional writing correctly: Name and Address Words: Moderate Numerical Skills Counting Money: PLAN TO ASSESS NEXT SESSION Determining Change: PLAN TO ASSESS NEXT SESSION Telling Time: PLAN TO ASSESS NEXT SESSION Numerical Work Problems: PLAN TO ASSESS NEXT SESSION Balancing Checkbook [place]: PLAN TO ASSESS NEXT SESSION Verbal Sequencing Verbal Sequencing: Mild and Moderate Problem Solving Simple: Mild Judgement & Reasoning Judgement/Reasoning: Mild Cognitive Linguistic Supervision/Saftey Awareness of deficits: Mild Being left home alone: Mild Managing medications: Mild Managing finances: Mild and Moderate Executive Function Comments Comments: Currently, Nicole states that she manages her own finances, manages her own medications, cooks her own food, and drives to therapy and to run errands. She states that her son or DIL visit her at least 1x/week to check on her. When ST asked questions about her medications, she stated that she only took one medicine, Levothyroxine. When asked if she takes Pantoprazole, she states she takes PRN. Education provided re: the importance of taking it daily as it builds on itself to prevent reflux. She showed understanding but suspect further education would be beneficial. When asked if she was on any other medication she stated Dr. Ayoub started her on a dementia medication last (her appt was two weeks ago), but had difficulty articulating the dosage. ST reviewed the dosage with her and wrote on a sticky note how the dosage will change for her on Tuesday. POC will include further assessment of medication management, finance management, safety awareness in the kitchen and around the house, and driving. Nicole would also benefit from a full aphasia assessment to identify areas of difficulty with word finding. Suspect deficits in writing and anomia so a full evaluation of aphasia will better determine if there are other areas as well. Reference: Neuro-QoL instrument Radiation Oncology Patient Plan Plan Plan: Will recommend Pt for weekly outpatient speech therapy intervention address moderate expressive aphasia and moderate cognitive deficits. Pt would benefit from circumlocution training, verb network strength training, and immediate feedback to identify instances of paraphasia. Pt would also benefit from cognitive training to improve attention, executive functioning, safety awareness, deficit awareness. Without skilled intervention Pt is at risk for communicating basic, medical, emergent, social wants & needs, and interacting with family/friends at home and during social interactions. Recommendations Treatment Warranted: Yes Treatment Warranted: Receptive/ Expressive Language and Cognition Progress Prognosis: Good Frequency Frequency: 1-2x /Week Duration: 4 Months Patient/Family Goal Patient/Family Goal: Nicole stating she would like to be able to remember the words she was going to say as well as work on her writing. Goals that are Established Determination:: Goals will be added/modified as deemed necessary and appropriate. Therapy will be discontinued when results of re-evaluation indicate therapy is no longer needed or lack of progress has been documented. Goal #1-5 Goal #1: Nicole will demonstrate use of word finding strategies to complete complex convergent and divergent naming tasks with 80% acc across 3 measured opportunities when given fading cues. Goal #2: Nicole will generate 3 sentences when given a target verb following WHO+verb+WHAT structure with 5/6 targets given min cues across 3 consecutively measured sessions Goal #3: Nicole will generate 3 additional pieces of information answering WHERE/WHEN/WHY of one self-created WHO+verb+WHAT sentence with 2 of the 3 questions answered independently across 3 consecutively measured sessions. Goal #4: Nicole will read short passages and answer open-ended comprehension questions re: the material at 70% accuracy given min verbal and logical cues. Education Patient has Indicated that the Following Identified Educational Needs: None The Patient has indicated that they have no educational or learning abilities that may effect their care.: Yes Patient Instruction Patient Education: Diagnosis, Treatment Plan and Goals Person Taught: Patient Teaching Method: Discussion and Demonstration Response to teaching: Return Demonstration and Verbalize Understanding
== END 2024-01-18 19:00 | disposition home or self-care (01) ==
LOC: SP 13:30
PROVIDERS: PCP Family Medicine Geriatric Medicine; Referring Provider Family Medicine Geriatric Medicine; Visit Provider Family Medicine Geriatric Medicine
DX: M54.31 Sciatica, right side (principal); S72.001D Fracture of unspecified part of neck of right femur, subsequent encounter for closed fracture with routine healing; G31.84 Mild cognitive impairment of uncertain or unknown etiology; R47.01 Aphasia
CPT/HCPCS: 92507; 92523; 97110; 97162; 97530

== ENCOUNTER → 2024-01-25 | Outpatient (CLI) | payer MEDICARE, MEDICAID, SELFPAY | END | disposition home or self-care (01) | LOC: PSN 13:24 | PROVIDERS: PCP Family Medicine Geriatric Medicine; Referring Provider Physician Assistant; Visit Provider Physician Assistant | DX: R20.2 Paresthesia of skin (principal) | CPT/HCPCS: 95886; 95910 ==

== ENCOUNTER → 2024-04-06 | Outpatient (CLI) | payer MEDICARE, SELFPAY ==
[2024-04-06 10:27] LABS: Mucous, Urine 0 SEEN /hpf (<or=2+)
[2024-04-06 10:49] LABS: Color, Urine Yellow (Yellow); Glucose, Dipstick Normal (Normal); Ketone-Dipstick Negative (Negative); Leukocyte Esterase-Dipstick 500 /ul (Negative); Nitrite-Dipstick Negative (Negative); Occult Blood-Urine 10 /ul (Negative); Protein-Dipstick 15 mg/dl (Negative); Specific Gravity, Urine 1.025 (1.002-1.030); Urine Bilirubin Dipstick Negative (Negative); Urine Clarity Sl. Cloudy (Clear); Urine Urobilinogen 1 mg/dl (Normal)
[2024-04-06 10:58] LABS: Calcium Oxalate Crystals Ur 3+ /hpf (<or=2+); Squamous Epithelial Cells - UA 10-25 SEEN /hpf (5-10); White Blood Cells 10-25 SEEN /hpf (0-5)
[2024-04-06 10:59] LABS: Bacteria 1+ /hpf (None Seen); Red Blood Cells-Urine 0-5 SEEN /hpf (0-5)
== END | disposition home or self-care (01) ==
LOC: POLAB3 10:26
PROVIDERS: PCP Family Medicine Geriatric Medicine; Visit Provider Family Medicine Geriatric Medicine
DX: B37.31 Acute candidiasis of vulva and vagina (principal)
CPT/HCPCS: 81001

== ENCOUNTER 2024-04-24 13:30 | Outpatient (RCR) | payer MEDICARE, SELFPAY ==
--- NOTE | 2024-03-01 15:23 | HP.SP.REEV ---
Visit History Visit Info Date of Eval: 10/12/23 Visit: 1 Patient's Approved Number of Visits: 30 Insurance Date Limit: 03/20/24 Deportation Officer: LUNA Martinez Attending Doctor: Referring Doctor: Reason for Referral: MILD COGNITIVE IMPAIRMENT/APHASIA. RX HERE Smoking Status: Never smoker Diagnosis Diagnosis: Mild-moderate cognitive-linguistic disorder Pain Is pain an issue with your current prescribed condition?: No Personal Preferred language: [place] Patient Allergies Allergies Allergies: Allergies No Known Allergies Allergy (Verified 01/03/24 10:33) Previous/Current Goals Goals 1-5 Previous Goal #1: Jael will demonstrate use of word finding strategies to complete complex convergent and divergent naming tasks with 80% acc across 3 measured opportunities when given fading cues. Goal 1 Status: GOAL MET - [place] categories: Foods 5/5, Drinks 5/5, Animals 9 (no limit given), weather 2 independently given and with cues she added 3 more. - Abstract Categories: things that grow - listed 6 veggies then cued other things - she listed 1 then with maximal cues she could do 2 more. - Pt was able to list 6 items of food that was at thanksgiving yesterday with only mild hesitations after first 4 foods. Gave the patient a list of 10 word finding strategies (single words/phrases with a 1-2 sentence descriptors below). Explained each one to patient and gave examples. She stated she gestures now. - Jael completed a check writing task where she wrote four checks. Jael had multiple spelling mistakes along with illegible hand writing for the company names and spelling the numbers. ST created a sheet that had the spelling for numbers 1 through 20, 30, 40, 50, 60, 70, 80, 90, and 100 to have next to her at home when she is paying bills. Previous Goal #2: Jael will generate 3 sentences when given a target verb following WHO+verb+WHAT structure with 5/6 targets given min cues across 3 consecutively measured sessions. Goal 2 Status: GOAL PROGRESSING: GOAL NOT MET ACROSS 3 MEASURED SESSIONS, Pt acc is inconsistent, see below. Verb: fix - On first round of three sentences, Jael identified 6/6 targets independently - On second of three sentences, Jael identified 2/6 targets independently and benefited from mod verbal and semantic cues to improve to 6/6. Jael returned her HW from last week and expressed she was still confused on how to complete it. She stated she didn't know if she could use the verb conjugated as ate. This was the first time Jael showed confusion at the conjugations. ST thinking this could've been the first time we used a verb that had an irregular past tense. After discussing and doing a few trial sentences, Pt stating she felt more confident with completing it for homework. - Homework Verb: eat - On first round of three sentences, Jael identified 5/6 targets independently - On second of three sentences, Jael identified 6/6 targets independently and benefited from mod verbal and semantic cues to improve to 6/6. Previous Goal #3: Jael will generate 3 additional pieces of information answering WHERE/WHEN/WHY of one self-created WHO+verb+WHAT sentence with 2 of the 3 questions answered independently across 3 consecutively measured sessions. Goal 3 Status: GOAL PROGRESSING: Verb: fix - Jael generated three additional pieces of information with 1/3 independently and benefited from min-mod verbal and semantic cues to improve to 3/3. Homework Verb: eat - Jael generated three additional pieces of information with 1/3 independently and benefited from mod verbal and semantic cues to improve to 3/3. Previous Goal #4: Jael will read short passages and answer open-ended comprehension questions re: the material at 70% accuracy given min verbal and logical cues. Goal 4 Status: GOAL MET Jael can read simple to moderate level paragraphs and answer open-ended questions about the paragraph with greater than 70% acc given min verbal and logical cues. Jael benefits from underlining pertinent information from the paragraph when reading to aid in answering questions after she finishes reading. Suspect this also helps keep her focus and prevents skimming the paragraph. Reference: Neuro-QoL instrument In past 7 days I had to read something several times to understand it: Very often (several times a day) My thinking was slow: Never I had to work really hard to pay attention or i would make a mistake: Very often (several times a day) I had trouble concentrating: Sometimes (2-3 times) How much DIFFICULTY do you currently reading & following complex instructions (e.g. directions for new medication: A lot planning for & keeping appts that are not part of weekly routine: None managing your time to do most of your daily activities: None learning new tasks or instructions: Somewhat Comment Comment: Asked the patient verbally these questions which may be impacted by her anomia. There may also be deficits in awareness. Neuro-QOL Score Raw Score: 25 T - Score: 38.9 HDQLIFE - Speech Difficulties In the past 7 days. It was difficult for other people to understand me.: Rarely Is was difficult to speak clearly?: Sometimes In the past 7 days.. How often did you limit your social activites because you had difficulty speaking?: Never In the past 7 days... I had trouble speaking.: A little bit I was frustrated by my speech difficulties.: A little bit How much DIFFICULTY do you have... ...saying what you want to say?: Some difficulty Score HDQLIFE Speech Difficulties Raw Score: 13 HDQLIFE Speech Difficulties T - Score: 54 Radiation Oncology Patient Plan Plan Plan: Will recommend Pt for weekly outpatient speech therapy intervention address moderate expressive aphasia and moderate cognitive deficits. Pt would benefit from circumlocution training, verb network strength training, and immediate feedback to identify instances of paraphasia. Pt would also benefit from cognitive training to improve attention, executive functioning, safety awareness, deficit awareness. Without skilled intervention Pt is at risk for communicating basic, medical, emergent, social wants & needs, and interacting with family/friends at home and during social interactions. Recommendations Treatment Warranted: Yes Treatment Warranted: Receptive/ Expressive Language Progress Prognosis: Good Frequency Frequency: 2x /Week Duration: 5 weeks Goals that are Established Determination:: Goals will be added/modified as deemed necessary and appropriate. Therapy will be discontinued when results of re-evaluation indicate therapy is no longer needed or lack of progress has been documented. Goal #1-5 Goal #1: Jael will utilize at least two different aphasia word finding strategies in a structured therapy task given min verbal cues in 3 consecutively measured sessions. Goal #2: Jael will generate 3 sentences when given a target verb following WHO+verb+WHAT structure with 5/6 targets given min cues across 3 consecutively measured sessions. Goal #3: Jael will generate 3 additional pieces of information answering WHERE/WHEN/WHY of one self-created WHO+verb+WHAT sentence with 2 of the 3 questions answered independently across 3 consecutively measured sessions. Goal #4: Jael will show understanding of semantic feature analysis (SFA) via completing an SFA chart with 4/6 categories complete with min semantic and leading statement cues in 3 consecutively measured sessions. Goal #5: Jael will complete functional writing tasks (e.g., address, check writing, note taking) with no spelling errors with minimal verbal cues across 3 consecutive sessions to improve ability to promote independence completing ADL tasks.
--- NOTE | 2024-03-27 15:01 | HP.OTEVAL ---
Patient's Visit Information Visit Information Visit Information: NICOLE HUGGINS is a 78 year old F, referred to Occupational Therapy by Dr. Lucio Ayoub MD, with a diagnosis of R carpal tunnel. Date of Evaluation: 03/27/24 Occupational Therapist: Blanca Britton Subjective Subjective: This 78 year old female arrives referal to OT due to R sided carpal tunnel. Pt did receive a steriod injection complete 01/31/24. pt does not feel like injection helped. pt reports numbness of thumb and D2-3. pt denies pain however states handwriting gripping and carrying of items has become more difficult. symptoms worse at night. Pt is R hand dominant. Pt symptoms started 6 months ago. pt does state she wore brace for a while which seemed to help but made sleeping difficult. nerve conduction study complete 01/25/24 indicating mild carpal tunnel syndrome. Pain R wrist region: Current Pain Intensity: 0 Pain Intensity Range: 10 Objective Objective/Observation: arrives using walker as means of mobility pushes walker far out in front of her stops often while walking difficulty with word finding during session difficulty with multi step commands ROM Wrist: R 70/50 L 65/50 Opposition: see below ROM Comments: able to oppose to D5 however causes pain with completion pt states pain goes up to a 10 when doing that Strength Biomedical Technician: R 25# L 45# Lateral Pinch: R 3# L 3# Tripod Pinch: R 2# L 3# Strength Comments: intrinsic tightness in R hand fine on L hand Edema Other: none noted Sensation Sensation Comments: R hand all digits testing at 3.84 indicating loss of protective sensation Nine Hole Peg Right: 54 sec Left: 27 sec Quick DASH-Disab of Arm,Shoulder& Hand Quick DASH Score: 59.0900 Goals Goal:ROM equal to unaffected hand: Yes Goal:Biomedical Technician/Pinch strength at least 75% of unaffected hand: Yes Goal:No pain with affected hand use: Yes Goal:Full use of affected hand in daily activities including work: Yes Goal:Improvement in sensation documented by [place] monofiliaments: Yes Comment: quick dash Other Goal: pt will improve quick dash score by 15 points or more for improved functional use of R UE. pt will demonstrate 100% carryover in use of proper bracing for nighttime wear in order to decrease numbness and tingling by third session pt will improve 9 hole peg assessment RUE equal to or greater than non affected side by discharge Rehabilitation General Assessment: This 78 year old female arrives with dx of R carpal tunnel syndrome. Pt demonstrates impairments in ROM, strength as well as numbness and tingling and decreased coordination of R hand. pt with increased difficulty managing hand writing as well as opening of containers and maintaining grasp on items. Pt would benefit from OT services 1-2x a week for 4-6 weeks in order to address above impairments. Rehabilitation Potential: Good Anticipated Interventions Anticipated Interventions: A/AAROM/PROM, Strengthening, Triggerpoint Release, Modalities, Orthoses, Fine Motor Coord/[place], Education re Diagnosis and Home Program Visit Plan Frequency: 1-2x /Week Duration: 4-6 Weeks General Plan: AROM/AAROM/PROM nerve glide modalities joint protection and positioning bracing TEXT: Thank you for the opportunity to evaluate your patient. For Medicare and Medicare HMO plans, please review the plan of care and approve it. It will need to be FAXED BACK to us at [phone] for Medicare purposes. Please let me know if there are questions or concerns regarding this plan of care. Physician Signature: Date:
--- NOTE | 2024-04-25 17:31 | HP.OT.NRP ---
Patient Information Patient Information: NICOLE HUGGINS was seen in my office for initial evaluation on 03/27/24. The following Plan of Care was established for this patient: POC Established Initial Frequency: 1-2x /Week Initial Duration: 4-6 Weeks Plan: Chart can be discharged. Anticipated Interventions Anticipated Interventions: A/AAROM/PROM, Strengthening, Triggerpoint Release, Modalities, Orthoses, Fine Motor Coord/A[place]ab, Education re Diagnosis and Home Program Last Seen Last Seen: This patient was last seen in our office 04/24/24. Pertinent comments regarding their Occupational therapy will appear below: This 78 year old female seen by OT with dx of carpal tunnel syndrome. pt with progress made throughout POC however has now started home health therapy services and no longer to see outpatient at this time. discharge from OT caseload. At this point I will be discontinuing this patient from occupational therapy. I would be happy to see this patient again in the future if found appropriate by the physician. Thank you! Blanca Britton
--- NOTE | 2024-04-26 14:00 | HP.SP.DC ---
ST Discharge Summary Discharged: Discharge: NICOLE HUGGINS is a 78 year old female [facility] following dx of aphasia and mild cognitive impairment. She attended 39 additional sessions targeting expressive language production through use of VNEST, Semantic Feature Analysis, aphasia word finding strategies, and executive functioning tasks. [facility]. As of 04/25/2024, Pt will be getting evaluated by home health services. Pt's family wishes for Nicole to stop driving, so they are taking a break of outpatient services at this time. Will re-evaluate following physician script. Thank you for allowing me to participate in the care of your patient.
== END 2024-04-24 19:00 | disposition home or self-care (01) ==
LOC: PT 13:30
PROVIDERS: PCP Family Medicine Geriatric Medicine; Referring Provider Family Medicine Geriatric Medicine; Visit Provider Family Medicine Geriatric Medicine
DX: R47.01 Aphasia (principal); G31.84 Mild cognitive impairment of uncertain or unknown etiology; R41.841 Cognitive communication deficit; R48.8 Other symbolic dysfunctions; S72.001D Fracture of unspecified part of neck of right femur, subsequent encounter for closed fracture with routine healing; M54.31 Sciatica, right side
CPT/HCPCS: 92507; 97110; 97161; 97165; 97530

== ENCOUNTER → 2024-05-22 | Outpatient (CLI) | payer MEDICARE, SELFPAY ==
[2024-05-22 15:30] LABS: Absolute Neutrophil Count 4.8 X10^3/uL (2.0-7.7); Basophil# 0.04 X10^3/uL; Basophil% 0.5 % (0-1); Eosinophils% 2.6 % (0-5); Hematocrit 40.2 % (37-47); Hemoglobin 13.1 g/dL (12.0-15.0); Lymphocyte % 27.2 % (19-41); Mean Corp Hgb Conc 32.6 g/dL (32-36); Mean Corpuscular Hgb 29.8 pg (27.0-32.0); Mean Corpuscular Volume 91.6 fL (81-99); Monocyte# 0.55 X10^3/uL; Monocyte% 7.1 % (0-10); NRBC Flagged by Analyzer 0 % (0-5); Neutrophil % 62.2 % (47-70); Platelet Count 321 K/mm3 (150-450); RBC Distribution Width CV 13.2 % (11.6-14.6); RBC Distribution Width SD 44.6 fl (35.1-43.9); Red Blood Count 4.39 M/mm3 (4.2-5.4); White Blood Count 7.7 K/mm3 (4.4-11.0)
[2024-05-22 21:51] LABS: ALB/GLOB Ratio 1.4 RATIO (0.9-2.4); AST(SGOT) 24 U/L (<=31); Alanine Aminotransfer ALT/SGPT 26 U/L (<=34); Albumin, Serum 4.1 g/dL (3.4-4.8); Alkaline Phosphatase 165 U/L (35-104); Anion Gap 14 (5-15); BUN 11 mg/dL (4-19); BUN/Creat Ratio 15.2 RATIO (10-20); Calcium,Total 9.5 mg/dL (7.6-11.0); Carbon Dioxide 20.1 mmol/L (21.0-32.0); Chloride 106 mmol/L (98-108); Cholesterol 203 mg/dL (<=200); Creatinine, Serum 0.75 mg/dL (0.70-1.20); EST Glomerular Filtration Rate 81 (>60); Globulin 2.9 g/dL (2.2-4.2); Glucose 147 mg/dL (70-99); High Density Lipoprotein 85 mg/dL; Low Density Lipoprotein Calc. 86 mg/dL; Potassium 3.8 mmol/L (3.3-5.1); Sodium Level 140 mmol/L (133-145); Total Bilirubin 0.27 mg/dL (0.00-1.30); Triglycerides 161 mg/dL; Very Low Density Lipoprotein 32 mg/dL (5-40); Vitamin D,25 Hydroxy 20.8 ng/mL (30-100)
== END | disposition home or self-care (01) ==
LOC: POLAB3 15:19
PROVIDERS: PCP Family Medicine Geriatric Medicine; Visit Provider Family Medicine Geriatric Medicine
DX: E78.5 Hyperlipidemia, unspecified (principal); R53.83 Other fatigue; E55.9 Vitamin D deficiency, unspecified
CPT/HCPCS: 36415; 80053; 80061; 82306; 84443; 85025

== ENCOUNTER → 2024-07-16 | Outpatient (CLI) | payer MEDICARE, SELFPAY | END | disposition home or self-care (01) | LOC: LAB 15:08 | PROVIDERS: PCP Family Medicine Geriatric Medicine; Referring Provider Family Medicine Geriatric Medicine; Visit Provider Family Medicine Geriatric Medicine | DX: E03.9 Hypothyroidism, unspecified (principal) | CPT/HCPCS: 36415; 84443 ==

== ENCOUNTER 2024-09-23 00:27 | Inpatient (IN) | payer MEDICARE, MEDICAID, SELFPAY ==
[2024-09-23] VITALS (9 sets, daily range): BP systolic 142–169; BP diastolic 61–93; PULSE 81–93; RESP 16–19; TEMP 36.4–37.2; O2SAT 94–99; BMI 25.9; BMI 25.8; BMI 25.7
--- NOTE | 2024-09-23 00:36 | EX.ED.DYSGE1 ---
HPI History of Present Illness Chief Complaint: [facility] Frontal dementia Contusion of right knee Strain of right knee Hemorrhoids Family history of breast cancer Thyroid disease Breast mass, right Abnormal mammogram of right breast Home Medications ?Medication ?Instructions ?Recorded ?Last Taken ?Type levothyroxine 75 mcg tablet 75 mcg PO DAILY THYROID 03/11/20 Unknown History pantoprazole 40 mg tablet,delayed 40 mg PO DAILY GERD 09/23/24 Unknown History release Allergy/AdvReac Type Severity Reaction Status Date / Time No Known Allergies Allergy Verified 08/01/24 09:56 Family History Mother Breast cancer Sister Breast cancer Sister Lymphoma Surgical History History of right breast biopsy (~03/2020) History of partial hysterectomy Social History household members: none Smoking Status: Never smoker second hand exposure: No alcohol intake: never substance use type: does not use EXAM Physical Exam Const Vital Signs: 09/23/24 00:28 09/23/24 02:28 09/23/24 03:00 Temperature 97.7 F L 97.5 F L Temperature Source Oral Pulse Rate 81 93 92 Respiratory Rate 19 H 18 16 Blood Pressure 155/63 H 156/71 H 143/69 H Blood Pressure Mean 93 99 93 Pulse Ox 99 94 98 Oxygen Delivery Method Room Air Room Air MDM MDM MDM Narrative Medical decision making narrative: HISTORY OF PRESENT ILLNESS: Chief complaint: Fall, left hip pain 79-year-old female history of mild cognitive impairment, Alzheimer disease, right hip fracture, hypothyroidism presents for left hip pain reported fall by EMS that occurred in the bathroom. Patient states REVIEW OF SYSTEMS: Pertinent positives: Left hip pain Pertinent negatives: Head trauma, LOC PHYSICAL EXAM: Nursing triage notes reviewed, Vital signs reviewed Primary Survey Airway: Intact Breathing: Bilateral breath sounds Circulation: Palpable bilateral femorals, Palpable bilateral radial, Palpable bilateral DP and Palpable bilateral PT Disability / Spine precautions GCS Score: Eye Openin Verbal Response: 5 Motor Response: 6 Secondary Survey Constitutional: Please see MDM Head: Atraumatic, Midface stable, NO jaw malocclusion, No Cephalohematoma, and No Lacerations noted Eye: Pupils equal round and reactive to light, Extraocular muscles intact and No periorbital ecchymosis or stepoff, no evidence of entrapment ENT: Oropharynx clear, no lacerations, no hemotympanum, no raccoon eyes or nails sign Cervical spine / Neck: No cervical spine bony tenderness, crepitance, or stepoff deformity Trachea midline Lungs: Clear to auscultation, No asymmetric rise and No crepitus, no flail chest Cardiac: Regular rate and rhythm and No murmurs Abdomen: Soft, Nontender and No rebound Pelvis: Pelvis stable to compression : No evidence of genital injury Back: No midline bony tenderness to thoracic/lumbar/sacral spines Neuro: At baseline, intact strength and sensation in bilateral upper and lower extremities. 2+ patellar reflexes bilaterally. Intact sensation L1-S1 dermatomal distributions. Intact 5/5 strength in hip flexion (T12-L3). Knee extension (L2-L4). Ankle dorsiflexion (L4-L5). Ankle plantar flexion (S1). Great toe extension (L5). 2+ patellar and Achilles DTRs. Extremities: Left lower extremity shortened externally rotated, it is warm well-perfused has intact pulses and sensation however Psych: Normal affect Nursing triage notes reviewed, Vital signs reviewed MEDICAL DECISION MAKING: Chief Complaint: please see HPI External records reviewed: Reviewed recent ED visit which the patient fell onto her right hip. At this time the patient's x-ray was negative Factors affecting care: As per HPI Social determinants of health: [place] [facility] resident History obtained from others: EMS Consults: Orthopedic surgery (Dr. Salas), internal medicine (Dr. Wong) MDM Narrative: The patient was initially hemodynamically stable, afebrile and nontoxic-appearing. Primary secondary trauma service concern for left hip pathology (shortened and externally rotated). No sign of intracranial injury spinal injury, upper extremity or right lower extremity injury or chest abdomen pelvis injury I considered the following differential diagnosis: Hip fracture dislocation I obtained x-ray and basic labs as well as preop lab to further determine if the patient was suffering from a life-threatening etiology. Initially treat the patient with IV Toradol and IV morphine. ALL IMAGES (IF OBTAINED) HAVE BEEN PERSONALLY REVIEWED AND INTERPRETED BY MYSELF. X-ray of the left hip and pelvis was read reviewed personally myself showed an obvious left hip fracture. Radiologist agreed my interpretation. Chest x-ray was read and reviewed personally by myself show no evidence of obvious pneumonia or cardiomegaly CBC leukocytosis, mild anemia, no thrombocytopenia BMP without evidence of significant electrolyte abnormalities, no anion gap, no acute kidney injury. Discussed with orthopedic on-call noted patient safe to stay here will likely operate on Tuesday. Mated to hospitalist. Discussed with Dr. Rosas who agreed to meet the patient in [facility]. The patient and/or family, caregivers express understanding. The patient and/or family, caregivers agrees with the plan. Shared decision making: I will have a discussion with the patient and or visitors regarding risk/benefits of further testing or admission. They will be made aware of of the risk/benefits inherent in this decision they will be given the opportunity to voice understanding. Total critical care time today provided was at least 0 minutes. This excludes separately billable procedures. Critical care time (if documented) is secondary to the patient having high probability of clinically significant/life threatening deterioration in the patient's condition which required my urgent intervention. Impression: 1. Fall 2. Left hip fracture 3. History of dementia Dispo: Admit This note was generated with [employer] dictation software. It may contain incorrect words, spelling, and punctuation that were not noted in review of the chart prior to signing. Lab Data Labs: Laboratory Results - last 24 hr 09/23/24 01:20 WBC 9.9 RBC 3.85 L Hgb 11.3 L Hct 34.6 L MCV 89.9 MCH 29.4 MCHC 32.7 RDW Std Deviation 44.6 H RDW Coeff of Rosita 13.5 Plt Count 265 MPV 9.7 Sodium 139 Potassium 3.7 Chloride 109 H Carbon Dioxide 20.2 L Anion Gap 10 BUN 14 Creatinine 0.73 Estim Creat Clear Calc 58.39 Est GFR (MDRD) Non-Af 84 BUN/Creatinine Ratio 18.5 Glucose 136 H Calcium 8.7 Radiography Diagnostic Testing: Clinical Impression(s) from Imaging Studies Chest X-Ray 09/23/24 01:02 IMPRESSION: Under aerated lung bases. Possible small right effusion. Reading Location: [facility] Hip/Pelvis X-Ray 09/23/24 01:26 IMPRESSION: Acute left intertrochanteric femoral neck fracture. Reading Location: [facility] Discharge Plan Triage Chief Complaint: Lower Extremity Injury ED Provider: Tommy Huff Dx/Rx/DC Orders Prescriptions: No Action levothyroxine 75 mcg tablet 75 mcg PO DAILY pantoprazole 40 mg tablet,delayed release (DR/EC) 40 mg PO DAILY Primary Care Provider: Lucio Ayoub Chi Referrals: Lucio Ayoub Chi, MD [Primary Care Provider] - Print Language: Kyrgyz
--- OUTSIDE RECORDS SUMMARY | 2024-09-23 00:52 | XMS RPT_ITS | CCD ---
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 Lucio Ayoub Chi Primary Care Provider Dr. Lucio Ayoub Chi Referring Provider MARGARITA Bronson Attending Provider MARGARITA Bronson Referring Provider Dr. Alli Montgomery Attending Provider 1([facility])[phone] Lucio Ayoub Chi Primary Care Provider 1([facility])[phone] Dr. Lucio Ayoub Chi Referring Provider 1([facility])[phone] MARGARITA Trejo Attending Provider [phone] Lucio Ayoub Chi Primary Care Provider [phone] Siddhartha Bliss Emergency Provider 1([facility])[phone] [facility] Attending Provider 1([facility])[phone] Rossy Saleem Other Provider Dr. Braxton Salas Attending Provider 1([facility])[phone] Dr. Braxton Salas Other Provider 1([facility])[phone] MD Artem Pina Attending Provider Dr. Trina Crawford Attending Provider Dr. Trina Crawford Other Provider Dr. Lucio Ayoub Chi Referring Provider Pablo AVILA PA Carlos Attending Provider Dr. Darinel John Attending Provider 1([facility])[phone] Dr. David Pisano Attending Provider 1([facility])[phone] Dr. Rossy Saleem Referring Provider MARGARITA Sunshine Referring Provider [phone] Alli Montgomery Attending Provider Mega WARE, Dr. Lucio Saxena Primary Care Provider Corie BRADFORD, Ronnell Attending Provider [phone] Corie BRADFORD, Ronnell Referring Provider Corie BRADFORD, Ronnell Other Provider [phone] Blayne WARE, Dr. Ponce Attending Provider Mega WARE, Dr. Lucio Saxena Attending Provider [phone] Mega WARE, Dr. Lucio Saxena Referring Provider Mega WARE, Dr. Lucio Saxena Primary Care Provider [phone] Mega WARE, Dr. Lucio Saxena Attending Provider Mega WARE, Dr. Lucio Saxena Referring Provider Dr. Braxton Salas DO Attending Provider Mega, Lucio Chi Attending Unavailable Mega, Lucio Chi Primary Care Unavailable Mega, Lucio Chi Referring Unavailable Mega, Lucio Chi Attending Unavailable Mega, Lucio Chi Primary Care Unavailable Mega, Lucio Chi Attending Unavailable Mega, Lucio Chi Primary Care Unavailable Mega, Lucio Chi Referring Unavailable Mega, Lucio Chi Primary Care Unavailable Mega, Lucio Chi Attending Unavailable Mega, Lucio Chi Referring Unavailable Ronnell Cody Consulting Unavailable Ronnell Cody Referring Unavailable Rosario Cisneros Attending Unavailable Mega, Lucio Chi Primary Care Unavailable Mega, Lucio Chi Consulting Unavailable Mi Fajardo Attending Unavailable Mega, Lucio Chi Referring Unavailable Mega, Lucio Chi Primary Care Unavailable Braxton Salas Attending Unavailable Mega, Lucio Chi Referring Unavailable Mega, Lucio Chi Primary Care Unavailable Mega, Lucio Chi Attending Unavailable Mega, Lucio Chi Referring Unavailable Mega, Lucio Chi Primary Care Unavailable Mega, Lucio Chi Attending Unavailable Mega, Lucio Chi Referring Unavailable Mega, Lucio Chi Primary Care Unavailable Ronnell Cody Attending Unavailable Ronnell Cody Referring Unavailable Mega, Lucio Chi Primary Care Unavailable Tommy Huff Attending Unavailable Mega, Lucio Chi Primary Care Unavailable Mega, Lucio Chi Attending Unavailable Mega, Lucio Chi Referring Unavailable Mega, Lucio Chi Primary Care Unavailable Mega, Lucio Chi Attending Unavailable Mega, Lucio Chi Primary Care Unavailable Mega, Lucio Chi Attending Unavailable Mega, Lucio Chi Primary Care Unavailable Medications Current Medications Medication Drug Class(es) Dates Sig (Normalized) Sig (Original) levothyroxine sodium 0.075 mg oral tablet (14 sources) l-Thyroxine Start: 03-11-2020 take 1 tablet by mouth once daily Levothyroxine 75 mcg tablet Active 75 ug PO DAILY March 11, 2020 1:00am Nirmatrelvir-Ritonav ir (14 sources) Start: 07-28-2021 Nirmatrelvir-Ritona vir (Paxlovid (Eua)) 150 mg x 2- 100 mg tablet Active 0 PO .COMPLEX July 28, 2021 4:01pm take TWO 150 mg tablets of nirmatrelvir with ONE 100 mg tablet of ritonavir twice daily for 5 days PO Start: 07-28-2021 End: 07-28-2021 Nirmatrelvir-Ritonavir (Paxl ovid (Eua)) 150 mg x 2- 100 mg tablet Discontinued 0 PO .COMPLEX July 27, 2021 11:00pm July 28, 2021 3:01pm take TWO 150 mg tablets of nirmatrelvir with ONE 100 mg tablet of ritonavir twice daily for 5 days PO Start: 07-28-2021 End: 07-28-2021 Nirmatrelvir-Ritonavir (Paxl ovid (Eua)) 150 mg x 2- 100 mg tablet Discontinued 0 PO .COMPLEX July 28, 2021 12:00am July 28, 2021 4:01pm take TWO 150 mg tablets of nirmatrelvir with ONE 100 mg tablet of ritonavir twice daily for 5 days PO polyethylene glycol 3350 92568 mg powder for oral solution (9 sources) Osmotic Laxative Start: 02-17-2022 take 17 g by mouth once daily Polyethylene Glycol 3350 17 gram Powder In Packet Active 17 g PO DAILY@0800 30 30 February 17, 2022 1:00am Completed/Discontinued Medications Medication Drug Class(es) Dates Sig (Normalized) Sig (Original) acetaminophen 500 mg oral tablet (20 sources) Start: 02-01-2022 End: 02-17-2022 take 2 tablets by mouth three times daily Acetaminophen 500 mg tablet Discontinued 1000 mg PO THREE TIMES A DAY February 01, 2022 9:43pm February 17, 2022 7:28pm Start: 02-01-2022 End: 02-17-2022 take 1000 mg by mouth three times daily Acetaminophen Discontinued 1000 MG PO THREE TIMES A DAY February 01, 2022 9:43pm February 17, 2022 7:28pm apixaban 5 mg oral tablet (20 sources) Factor Xa Inhibitor Start: 02-01-2022 End: 03-24-2022 take 2.5 mg by mouth twice daily Apixaban (Eliquis) 5 mg Tablet Discontinued 2.5 mg PO BID@0800,1800 2 2 February 17, 2022 1:00am March 24, 2022 12:14pm ascorbic acid 500 mg oral tablet (20 sources) Vitamin C Start: 02-01-2022 End: 02-17-2022 take 1 tablet by mouth once daily Ascorbic Acid (Vitamin C) (Vitamin C) 500 mg tablet Discontinued 500 mg PO DAILY February 01, 2022 9:43pm February 17, 2022 7:29pm docusate sodium 50 mg / sennosides, shelter 8.6 mg oral tablet (9 sources) Start: 02-17-2022 End: 01-03-2024 Sennosides-Docusate Sodium (Stool Softener-Stimulant Laxat) 8.6-50 mg Tablet Discontinued 2 {tbl} PO BID@0800,1800 120 30 February 17, 2022 1:00am January 03, 2024 10:34am doxycycline monohydrate 100 mg oral capsule (20 sources) Tetracycline-cla ss Drug Start: 02-18-2022 End: 03-24-2022 take 1 capsule by mouth twice daily Doxycycline Monohydrate 100 mg Capsule Discontinued 100 mg PO TWICE A DAY 8 February 18, 2022 1:00am March 24, 2022 12:14pm Start: 04-12-2016 End: 03-11-2020 take 1 capsule by mouth twice daily Doxycycline Hyclate 100 MG capsule Discontinued 100 mg PO TWICE A DAY April 12, 2016 1:00am March 11, 2020 2:13pm ergocalciferol 1.25 mg oral capsule (20 sources) Provitamin D2 Compound Start: 02-01-2022 End: 02-17-2022 Ergocalciferol (Vitamin D2) 1,250 mcg (50,000 unit) capsule Discontinued 1250 ug PO EVERY WEEK February 01, 2022 9:43pm February 17, 2022 7:29pm x 6 weeks ferrous sulfate 325 mg oral tablet (20 sources) Start: 02-01-2022 End: 02-17-2022 take 1 tablet by mouth twice daily Ferrous Sulfate (Iron (Ferrous Sulfate)) 325 mg (65 mg iron) tablet Discontinued 325 mg PO TWICE A DAY February 01, 2022 9:43pm February 17, 2022 7:29pm Food Supplemt, Lactose-Reduced (Ensure Plus High Protein) 0.08 gram-1.5 kcal/mL liquid (10 sources) Start: 02-01-2022 End: 02-17-2022 Food Supplemt, Lactose-Reduced (Ensure Plus High Protein) 0.08 gram-1.5 kcal/mL liquid Discontinued 120 mL PO 4 TIMES DAILY February 01, 2022 9:43pm February 17, 2022 7:29pm Start: 02-01-2022 End: 02-17-2022 Food Supplemt, Lactose-Reduc ed (Ensure Plus High Protein) 0.08 gram-1.5 kcal/mL liquid Discontinued 120 mL PO 4 TIMES DAILY February 01, 2022 8:43pm February 17, 2022 6:29pm Start: 02-01-2022 End: 02-17-2022 Food Supplemt, Lactose-Reduc ed (Ensure Plus High Protein) 0.08 gram-1.5 kcal/mL liquid Discontinued 120 ML PO 4 TIMES DAILY February 01, 2022 9:43pm February 17, 2022 7:29pm Start: 02-01-2022 End: 02-17-2022 Food Supplemt, Lactose-Reduc ed (Ensure Plus High Protein) 0.08 gram-1.5 kcal/mL liquid Discontinued 120 ML PO 4 TIMES DAILY February 01, 2022 8:43pm February 17, 2022 6:29pm Start: 02-01-2022 Food Supplemt, Lactose-Reduced (Ensure Plus High Protein) 0.08 gram-1.5 kcal/mL liquid Active 120 ML PO 4 TIMES DAILY February 01, 2022 8:43pm Food Supplemt, Lactose-Reduc ed (Ensure Plus High Protein) 0.08 gram-1.5 kcal/mL Liquid (10 sources) Start: 02-01-2022 End: 02-01-2022 Food Supplemt, Lactose-Reduc ed (Ensure Plus High Protein) 0.08 gram-1.5 kcal/mL Liquid Discontinued 120 mL PO 4 TIMES DAILY 237 February 01, 2022 1:00am February 01, 2022 9:43pm Start: 02-01-2022 End: 02-01-2022 Food Supplemt, Lactose-Reduc ed (Ensure Plus High Protein) 0.08 gram-1.5 kcal/mL Liquid Discontinued 120 mL PO 4 TIMES DAILY 237 February 01, 2022 12:00am February 01, 2022 8:43pm Start: 02-01-2022 End: 02-01-2022 Food Supplemt, Lactose-Reduc ed (Ensure Plus High Protein) 0.08 gram-1.5 kcal/mL Liquid Discontinued 120 ML PO 4 TIMES DAILY 237 February 01, 2022 1:00am February 01, 2022 9:43pm Start: 02-01-2022 End: 02-01-2022 Food Supplemt, Lactose-Reduc ed (Ensure Plus High Protein) 0.08 gram-1.5 kcal/mL Liquid Discontinued 120 ML PO 4 TIMES DAILY 237 February 01, 2022 12:00am February 01, 2022 8:43pm Miscellaneous Medical Supply (5 sources) Start: 03-24-2022 End: 09-20-2022 Miscellaneous Medical Supply Discontinued 1 EACH MC .PRN 1 March 24, 2022 1:00am September 20, 2022 12:03am Handicap placard to use as needed. Valid for 6 months from today. Start: 03-24-2022 Miscellaneous Medical Supply Active 1 EACH MC .PRN March 24, 2022 12:00am Handicap placard to use as needed. Valid for 6 months from today. Miscellaneous Medical Supply misc (3 sources) Start: 03-24-2022 End: 09-20-2022 Miscellaneous Medical Supply misc Discontinued 1 NMA MC .PRN as needed for s/p right hip fx 1 March 24, 2022 1:00am September 19, 2022 12:00am September 20, 2022 12:03am Handicap placard to use as needed. Valid for 6 months from today. Start: 03-24-2022 End: 09-20-2022 Miscellaneous Medical Supply [facility] [place] 1 NMA MC .PRN as needed for s/p right hip fx 1 180 March 24, 2022 12:00am September 18, 2022 11:00pm September 19, 2022 11:03pm Handicap placard to use as needed. Valid for 6 months from today. naproxen 500 mg oral tablet (14 sources) Nonsteroidal Anti-inflammatory Drug Start: 04-12-2016 End: 03-11-2020 take 1 tablet by mouth twice daily as needed Naproxen 500 MG tablet Discontinued 500 mg PO TWICE DAILY NEEDED April 12, 2016 1:00am March 11, 2020 2:13pm Nirmatrelvir-Ritona vir (Paxlovid (Eua)) 150 mg x 2- 100 mg tablet (1 source) Start: 07-28-2021 End: 07-28-2021 Nirmatrelvir-Ricco navir (Paxlovid (Eua)) 150 mg x 2- 100 mg tablet Discontinued 0 PO .COMPLEX July 28, 2021 12:00am July 28, 2021 4:01pm take TWO 150 mg tablets of nirmatrelvir with ONE 100 mg tablet of ritonavir twice daily for 5 days PO oxyCODONE hydrochloride 5 mg oral tablet (19 sources) Opioid Agonist Start: 02-17-2022 End: 03-24-2022 take 1 tablet by mouth every four hours as needed for pain Oxycodone 5 mg Tablet Discontinued 5 mg PO EVERY 4 HOURS NEEDED as needed for Pain Score 6-10 18 February 17, 2022 March 24, 2022 12:14pm Start: 02-01-2022 End: 02-17-2022 take 1 tablet by mouth every six hours as needed for pain Oxycodone 5 mg tablet Discontinued 5 mg PO EVERY 6 HOURS as needed for pain 4 February 01, 2022 February 17, 2022 7:30pm Problems Active Problems Problem Classification Problem Date Documented Date Episodic/Chronic Deficiency and other anemia (10 sources) Iron deficiency anemia; Translations: [Iron deficiency anemia, unspecified] 02-01-2022 Episodic Deficiency and other anemia (3 sources) Iron deficiency anemia, unspecified; Translations: [Iron deficiency anemia, unspecified] Episodic Delirium, dementia, and amnestic and other cognitive disorders (1 source) Alzheimer's disease, unspecified; Translations: [Alzheimer's disease, unspecified] Onset: 02-10-2024 Chronic Disorders of lipid metabolism (1 source) Hyperlipidemia, unspecified; Translations: [Hyperlipidemia, unspecified] Onset: 07-14-2024 Chronic E Codes: Fall (18 sources) Fall; Translations: [Unspecified fall, initial encounter] Episodic Fracture of neck of femur (hip) (20 sources) Closed intertrochanteric fracture; Translations: [Displaced intertrochanteric fracture of right femur, initial encounter for closed fracture] Onset: 05-24-2024 Episodic Hemorrhoids (14 sources) Hemorrhoids; Translations: [Unspecified hemorrhoids] 03-11-2020 Episodic Immunizations and screening for infectious disease (14 sources) Requires diphtheria, tetanus and pertussis vaccination; Translations: [Encounter for immunization] 12-12-2020 Episodic Malaise and fatigue (13 sources) Asthenia; Translations: [Other malaise] Episodic Nonmalignant breast conditions (14 sources) Breast lump; Translations: [Unspecified lump in the right breast, unspecified quadrant] 03-11-2020 Episodic Nonspecific chest pain (13 sources) Chest wall pain; Translations: [Other chest pain] 09-20-2021 Episodic Open wounds of extremities (7 sources) Laceration of right thumb; Translations: [Laceration without foreign body of right thumb without damage to nail, initial encounter] 06-02-2023 Episodic Other fractures (6 sources) Fracture of rib; Translations: [Fracture of one rib, left side, initial encounter for closed fracture] 09-20-2021 Episodic Other fractures (7 sources) Fracture of left rib; Translations: [Fracture of one rib, left side, initial encounter for closed fracture] 09-20-2021 Episodic Other hereditary and degenerative nervous system conditions (3 sources) Impaired cognition; Translations: [Mild cognitive impairment, so stated] 01-03-2024 Chronic Other hereditary and degenerative nervous system conditions (1 source) Mild cognitive impairment, so stated; Translations: [Mild cognitive impairment of uncertain or unknown etiology] Onset: 02-10-2024 Chronic Other injuries and conditions due to external causes (14 sources) Closed injury of head; Translations: [Unspecified injury of head, initial encounter] 12-12-2020 Episodic Other injuries and conditions due to external causes (14 sources) Abrasion and/or friction burn of multiple sites; Translations: [Unspecified multiple injuries, initial encounter] 12-12-2020 Episodic Other injuries and conditions due to external causes (10 sources) H/O: hip fracture; Translations: [Personal history of (healed) traumatic fracture] 02-12-2022 Episodic Other injuries and conditions due to external causes (4 sources) Personal history of (healed) traumatic fracture; Translations: [Personal history of traumatic fracture] Episodic Other nervous system disorders (1 source) Carpal tunnel syndrome of right wrist; Translations: [Carpal tunnel syndrome, right upper limb] 08-01-2024 Chronic Other nervous system disorders (1 source) Aphasia; Translations: [Aphasia] Onset: 12-13-2023 Chronic Other screening for suspected conditions (not mental disorders or infectious disease) (14 sources) Mammography abnormal; Translations: [Other abnormal and inconclusive findings on diagnostic imaging of breast] 03-11-2020 Episodic Other upper respiratory infections (14 sources) Sinusitis; Translations: [Chronic sinusitis, unspecified] 04-13-2016 Chronic Residual codes; unclassified (14 sources) Family history of breast cancer; Translations: [Family history of malignant neoplasm of breast] 03-11-2020 Episodic Comment on above: Mother and Sister Spondylosis; intervertebral disc disorders; other back problems (1 source) Sciatica, right side; Translations: [Sciatica, right side] Onset: 05-24-2024 Episodic Sprains and strains (15 sources) Strain of knee; Translations: [Strain of unspecified muscle(s) and tendon(s) at lower leg level, right leg, initial encounter] Episodic Superficial injury; contusion (20 sources) Abrasion of face; Translations: [Abrasion of other part of head, initial encounter] Episodic Thyroid disorders (15 sources) Hypothyroidism; Translations: [Hypothyroidism, unspecified] Onset: 07-19-2024 Chronic Thyroid disorders (15 sources) Disorder of thyroid gland; Translations: [Disorder of thyroid, unspecified] Episodic Unclassified (1 source) Acute candidiasis of vulva and vagina; Translations: [Acute candidiasis of vulva and vagina] Onset: 04-26-2024 Viral infection (15 sources) Disease caused by 2019-nCoV; Translations: [COVID-19] Episodic Past or Other Problems Problem Classification Problem Date Documented Da te Episodic/Chronic Other nervous system disorders (2 sources) Paresthesia of skin; Translations: [Paresthesia of skin] Onset: 02-21-2024 Episodic Other non-traumatic joint disorders (1 source) Pain in right hip; Translations: [Pain in right hip] Onset: 08-29-2023 Episodic Results Test Name Value Interpretation Reference Range Facility Orthopedic Visit Reporton Orthopedic Visit Report [facility] [address] [place] [address] [address] [place] [address] OFFICE VISIT Date of Service: 08/01/24 MR#: [id number] Acct: [id number] Name: JAEL HUGGINS Rep #: [id number] : 1945 Provider: Dr. Braxton wayne DO Age/Sex: 78/F [place] [facility] [place]: Signed Intake Vital Signs 01/03/24 10:36 08/01/24 09:53 Height 5 ft 6 in 5 ft 6 in Weight: 160 lb BMI 25.8 Intake Visit Reasons: RIGHT HAND Chief Complaint: right hand Accompanied by: Daughter In Law Is patient in pain?: No Allergies No Known Allergies Allergy (Verified 08/01/24 09:56) Medications ???Medication ???Instructions ???Recorded ???Confirmed ???Type levothyroxine 75 mcg tablet 75 mcg PO DAILY THYROID 03/11/20 0 08/01/24 History ascorbic acid (vitamin C) 500 mg 500 mg PO DAILY@0800 30 days #30 1 04/19/21 08/01/24 Rx tablet tabs ferrous sulfate 325 mg (65 mg 325 mg PO BID@1245,1745 30 days 08/01/24 Rx iron) tablet (FeroSul) #60 tabs polyethylene glycol 3350 17 gram 17 g PO DAILY@0800 30 days #30 ea 02/17/22 08/01/24 Rx oral powder packet Have you fallen in the past year?: Yes [facility] Medical History Contusion of right knee Strain of right knee Hemorrhoids Family history of breast cancer Thyroid disease Breast mass, right Abnormal mammogram of right breast Surgical History History of right breast biopsy ( 03/2020) History of partial hysterectomy Family History Mother Breast cancer Sister Breast cancer Sister Lymphoma Social History household members: none Smoking Status: Never smoker second hand exposure: No alcohol intake: never substance use type: does not use HPI RIGHT HAND Details: This documentation accurately reflects the service provided and the decisions made by me, Dr. Braxton Salas, DO 08/01/24 0745. Part of today???s visit was documented by Corie Montes De Oca MA, acting as scribe. JAEL HUGGINS is a 78 year old F here today for right hand dylan. Patient has pain in the right hand. The pain is a shocking pain that comes and goes. All her fingers except the pinky on the right hand is numb. This has been going on for about 6 months ago. She denies any known injury. Dr. Ayoub was giving her injections, and they didn't really do anything. The most recent injection was 6 weeks ago which was not helpful. The last appointment she saw him was 2 weeks ago. Th injections didn't help at all. Patient has been going to Dr. Ayoub for years.Patient denies any surgeries in the past with her hand. When grabbing a hold of something makes the pain worse. Patient states that sometimes she will trouble things out of her hands.Patient did get injections in the past by Dr. Ayoub, but they didn't work. She went to [facility] her hand. They had her do fine motor exercise, but that didn't help. She went to physical therapy for 3 months. Patient went to physical therapy for 6 weeks.Patient denies any diabetes, or blood thinners.Patient denies any smoking, or drug use. Patient only has numbness and tingling in the hand. She gets burst of shooting pain. She wore a night splint for 3 weeks which was not helpful. Ortho Exam General General: Yes no acute distress Neurologic: Yes alert and Yes oriented x3 Psychologic: Yes reasonable and appropriate Right Wrist/Hand Skin/Wound: Yes CDI, No Swelling, No Ecchymosis and Yes capillary refill normal Right Wrist: Yes Tinel's and Phalen's WRIST: She is able to flex and extend the digits there is no sign of cellulitis or infection Left Wrist/Hand Skin/Wound: No Swelling and No Ecchymosis Supplemental Info 01/25/2024 EMG: Electrodiagnostic findings suggestive of right-sided median mononeuropathy. This consistent with a mild right carpal tunnel syndrome. 05/05/2022 x-ray right femur: Status post long cephalomedullary fixation does appear to be bridging callus across fracture 01/19/2021 MRI left knee: Small prepatellar bursal fluid collection is present compatible with a posttraumatic seroma mild to moderate patchy edema present in the mid pole of the inferior aspect of the patella no discrete fracture line osteochondral defect present at the superior pole of the medial patellar facet with high-grade cartilage loss mild radial tearing of the free edge of the body of the medial meniscus is presence according to the read diffuse greater than 50% cartilage loss of the medial compartment diffuse greater than 50% cartilage loss of the lateral compartment Coding Level of Care Code Off vis,est,level 3 Diagnoses Carpal tunne (more content not included)... Normal [facility] TSH DL <= 0.005 mIU/L QnOrde red By: Lucio Ayoub on 07-16-2024 TSH Qn 9.610 uIU/mL High 0.300-4.200 [facility] Thyroid Stim Hormone (TSH)on 07-16-2024 TSH 9.610 uIU/mL High 0.300-4.200 [facility] Comment on above: Performed By: #### L 501.9520 #### [facility] [address] [place], [place], [id number] Absolute lymphocyte countOrd ered By: Lucio Ayoub on 05-22-2024 Lymphocytes Auto (Unsp spec) [#/Vol] 2.10 10*3/uL 0.83-4.51 [facility] Absolute neutrophil countOrd ered By: Lucio Ayoub on 05-22-2024 Neutrophils (Bld) [#/Vol] 4.8 10*3/uL 2.0-7.7 [facility] Anion gap in Serum or Plasma Ordered By: Lucio Ayoub on 05-22-2024 Anion gap [Moles/Vol] 14 mmol/L 5- [facility] Automated lymphocyte count a s percentage of total leukocytesOrdered By: Lucio Ayoub on 05-22-2024 Lymphocytes/100 WBC Auto (Unsp spec) 27.2 % - [facility] BUN/creatinine ratioOrdered By: Lucio Mega on 05-22-2024 Urea nitrogen/Creatinine [Mass ratio] 15.2 mg/mg 10- [facility] Basophil percentageOrdered B y: Lucio Ayoub on 05-22-2024 Basophils/100 WBC (Bld) 0.5 % 0-1 [facility] Bilirubin, totalOrdered By: Lucio Ayoub on 05-22-2024 Bilirubin [Mass/Vol] 0.27 mg/dL 0.00-1.30 [facility] CBC W/Diff, Automatedon Absolute Lymph 2.10 X10 3/uL Normal 0.83-4.51 [facility] Comment on above: Performed By: #### L 100.0100, L500.4100, L501.9520, L500.4050, L506.1001 ####[facility] [id number] [place], [address] Absolute Neut 4.8 X10 3/uL Normal 2.0-7.7 [facility] Comment on above: Performed By: #### L 100.0100, L500.4100, L501.9520, L500.4050, L506.1001 ####[facility] [id number] [place], [address] Basophils/100 WBC (Bld) 0.5 % Normal 0-1 [facility] Comment on above: Performed By: #### L 100.0100, L500.4100, L501.9520, L500.4050, L506.1001 ####[facility] [id number] [place], [address] Eosinophils/100 WBC (Bld) 2.6 % Normal 0-5 [facility] Comment on above: Performed By: #### L 100.0100, L500.4100, L501.9520, L500.4050, L506.1001 ####[facility] [id number] [place], [address] Erythrocyte distribution width (RBC) [Ratio] 13.2 % Normal 11.6-14.6 [facility] Comment on above: Performed By: #### L 100.0100, L500.4100, L501.9520, L500.4050, L506.1001 ####[facility] [address] [place], [address] Hematocrit (Bld) [Volume fraction] 40.2 % Normal 37-47 [facility] Comment on above: Performed By: #### L 100.0100, L500.4100, L501.9520, L500.4050, L506.1001 ####[facility] [address] [place], [address] Hemoglobin (Bld) [Mass/Vol] 13.1 g/dL Normal 12.0-15.0 [facility] Comment on above: Performed By: #### L 100.0100, L500.4100, L501.9520, L500.4050, L506.1001 ####[facility] [address] [place], [address] IG% 0.400 Normal 0.0-0.9 [facility] Comment on above: Result Comment: IG% - Immature Granulocytes (promyelocytes, myelocytes and metamyelocytes) > 1% indicates that a LEFT SHIFT is Present. Performed By: #### L 100.0100, L500.4100, L501.9520, L500.4050, L506.1001 ####[facility] [address] [place], [address] Lymphocytes/100 WBC (Bld) 27.2 % Normal 19-41 [facility] Comment on above: Performed By: #### L 100.0100, L500.4100, L501.9520, L500.4050, L506.1001 ####[facility] [address] [place], [address] MCH (RBC) [Entitic mass] 29.8 pg Normal 27.0-32.0 [facility] Comment on above: Performed By: #### L 100.0100, L500.4100, L501.9520, L500.4050, L506.1001 ####[facility] [address] [place], [address] MCHC (RBC) [Mass/Vol] 32.6 g/dL Normal 32-36 [facility] Comment on above: Performed By: #### L 100.0100, L500.4100, L501.9520, L500.4050, L506.1001 ####[facility] [address] [place], [address] MCV (RBC) [Entitic vol] 91.6 fL Normal 81-99 [facility] Comment on above: Performed By: #### L 100.0100, L500.4100, L501.9520, L500.4050, L506.1001 ####[facility] [address] [place], [address] Monocytes/100 WBC (Bld) 7.1 % Normal 0-10 [facility] Comment on above: Performed By: #### L 100.0100, L500.4100, L501.9520, L500.4050, L506.1001 ####[facility] [address] [place], [address] Neutrophils/100 WBC (Bld) 62.2 % Normal 47-70 [facility] Comment on above: Performed By: #### L 100.0100, L500.4100, L501.9520, L500.4050, L506.1001 ####[facility] [address] [place], [address] Nucleated RBC (Bld) [#/Vol] 0 10*3/uL Normal 0-5 [facility] Comment on above: Performed By: #### L 100.0100, L500.4100, L501.9520, L500.4050, L506.1001 ####[facility] [address] [place], [address] Platelet mean volume (Bld) [Entitic vol] 10.0 fL Normal 6.2-12.0 [facility] Comment on above: Performed By: #### L 100.0100, L500.4100, L501.9520, L500.4050, L506.1001 ####[facility] [address] [place], [address] Platelets (Bld) [#/Vol] 321 10*3/uL Normal 150-450 [facility] Comment on above: Performed By: #### L 100.0100, L500.4100, L501.9520, L500.4050, L506.1001 ####[facility] [address] [place], [address] RBC (Bld) [#/Vol] 4.39 10*6/uL Normal 4.2-5.4 [facility] Comment on above: Performed By: #### L 100.0100, L500.4100, L501.9520, L500.4050, L506.1001 ####[facility] [address] [place], [address] RDW SD 44.6 fl High 35.1-43.9 [facility] Comment on above: Performed By: #### L 100.0100, L500.4100, L501.9520, L500.4050, L506.1001 ####[facility] [address] [place], [place], [id number] WBC (Bld) [#/Vol] 7.7 10*3/uL Normal 4.4-11.0 [facility] Comment on above: Performed By: #### L 100.0100, L500.4100, L501.9520, L500.4050, L506.1001 ####[facility] [address] [place], [place], [id number] Calculated very low density lipoprotein (VLDL) cholesterol measurementOrdered By: Lucio Ayoub on 05-22-2024 Calculated very low density lipoprotein (VLDL) cholesterol measurement 32 mg/dL 5-40 [facility] VLDL Cholesterol 32 mg/dL 5-40 [facility] Carbon dioxide, total [Moles /volume] in Central venous bloodOrdered By: Lucio Ayoub on 05-22-2024 CO2 [Moles/Vol] 20.1 mmol/L Low 21.0-32.0 [facility] Chloride assayOrdered By: Adriano Ayoub on 05-22-2024 Chloride [Moles/Vol] 106 mmol/L 98-108 [facility] Comprehensive Metabolic Prof ilon 05-22-2024 Albumin [Mass/Vol] 4.1 g/dL Normal 3.4-4.8 [facility] Comment on above: Performed By: #### L 100.0100, L500.4100, L501.9520, L500.4050, L506.1001 ####[facility] [address] [place], [place], [id number] Albumin/Globulin [Mass ratio] 1.4 {ratio} Normal 0.9-2.4 [facility] Comment on above: Performed By: #### L 100.0100, L500.4100, L501.9520, L500.4050, L506.1001 ####[facility] [address] [place], [address] ALK PHOS 165 U/L High 35-104 [facility] Comment on above: Performed By: #### L 100.0100, L500.4100, L501.9520, L500.4050, L506.1001 ####[facility] [address] [place], [address] ALT [Catalytic activity/Vol] 26 U/L Normal <=34 [facility] Comment on above: Performed By: #### L 100.0100, L500.4100, L501.9520, L500.4050, L506.1001 ####[facility] [address] [place], [address] AST [Catalytic activity/Vol] 24 U/L Normal <=31 [facility] Comment on above: Performed By: #### L 100.0100, L500.4100, L501.9520, L500.4050, L506.1001 ####[facility] [address] [place], [address] Bilirubin [Mass/Vol] 0.27 mg/dL Normal 0.00-1.30 [facility] Comment on above: Performed By: #### L 100.0100, L500.4100, L501.9520, L500.4050, L506.1001 ####[facility] [address] [place], [address] BUN/CRE 15.2 RATIO Normal 10-20 [facility] Comment on above: Performed By: #### L 100.0100, L500.4100, L501.9520, L500.4050, L506.1001 ####[facility] [address] [place], [address] Calcium [Mass/Vol] 9.5 mg/dL Normal 7.6-11.0 [facility] Comment on above: Performed By: #### L 100.0100, L500.4100, L501.9520, L500.4050, L506.1001 ####[facility] [address] [place], [address] Chloride [Moles/Vol] 106 mmol/L Normal 98-108 [facility] Comment on above: Performed By: #### L 100.0100, L500.4100, L501.9520, L500.4050, L506.1001 ####[facility] [address] [place], [address] CO2 [Moles/Vol] 20.1 mmol/L Low 21.0-32.0 [facility] Comment on above: Performed By: #### L 100.0100, L500.4100, L501.9520, L500.4050, L506.1001 ####[facility] [address] [place], [address] Creatinine [Mass/Vol] 0.75 mg/dL Normal 0.70-1.20 [facility] Comment on above: Performed By: #### L 100.0100, L500.4100, L501.9520, L500.4050, L506.1001 ####[facility] [address] [place], [address] GAP 14 Normal 5-15 [facility] Comment on above: Performed By: #### L 100.0100, L500.4100, L501.9520, L500.4050, L506.1001 ####[facility] [address] [place], [address] GFR/1.73 sq M.predicted among non-blacks MDRD (S/P/Bld) [Vol rate/Area] 81 mL/min/{1.73_m2} Normal >60 [facility] Comment on above: Result Comment: mL/m in/1.73m2 CKD-EPI Creatinine Equation (2020) Performed By: #### L 100.0100, L500.4100, L501.9520, L500.4050, L506.1001 ####[facility] [address] [place], [address] Globulin (S) [Mass/Vol] 2.9 g/dL Normal 2.2-4.2 [facility] Comment on above: Performed By: #### L 100.0100, L500.4100, L501.9520, L500.4050, L506.1001 ####[facility] [address] [place], [address] Glucose [Mass/Vol] 147 mg/dL High 70-99 [facility] Comment on above: Performed By: #### L 100.0100, L500.4100, L501.9520, L500.4050, L506.1001 ####[facility] [address] [place], [address] Potassium [Moles/Vol] 3.8 mmol/L Normal 3.3-5.1 [facility] Comment on above: Performed By: #### L 100.0100, L500.4100, L501.9520, L500.4050, L506.1001 ####[facility] [address] [place], [address] Sodium [Moles/Vol] 140 mmol/L Normal 133-145 [facility] Comment on above: Performed By: #### L 100.0100, L500.4100, L501.9520, L500.4050, L506.1001 ####[facility] [address] [place], [address] T PROT 7.0 g/dL Normal 5.9-8.4 [facility] Comment on above: Performed By: #### L 100.0100, L500.4100, L501.9520, L500.4050, L506.1001 ####[facility] [address] [place], [address] Urea nitrogen [Mass/Vol] 11 mg/dL Normal 4-19 [facility] Comment on above: Performed By: #### L 100.0100, L500.4100, L501.9520, L500.4050, L506.1001 ####[facility] [address] [place], [address] Eosinophil percentageOrdered By: Lucio Ayoub on 05-22-2024 Eosinophils/100 WBC (Bld) 2.6 % 0-5 [facility] Erythrocyte distribution wid th ratioOrdered By: Lucio Ayoub on 05-22-2024 Erythrocyte distribution width (RBC) [Ratio] 13.2 % 11.6-14.6 [facility] Erythrocyte distribution wid th standard deviationOrdered By: Lucio Ayoub on 05-22-2024 Erythrocyte distribution width (RBC) [Entitic vol] 44.6 fL High 35.1-43.9 [facility] Erythrocyte distribution width (RBC) [Ratio] 44.6 fl High 35.1-43.9 [facility] GFR/1.73 sq M.predicted shivani g non-blacks MDRD (S/P/Bld) [Vol rate/Area]Ordered By: Lucio Ayoub 05-22-2024 Estimated GFR (MDRD) Non-Af Amer 81 >60 [facility] Comment on above: mL/min/1.73m2 CKD-EP I Creatinine Equation (2020) Glomerular filtration rate ( GFR) estimation/1.73 sq m using serum, plasma, or whole bOrdered By: Lucio Ayoub 05-22-2024 GFR/1.73 sq M.predicted among non-blacks MDRD (S/P/Bld) [Vol rate/Area] 81 mL/min/{1.73_m2} >60 [facility] Comment on above: mL/min/1.73m2 CKD-EP I Creatinine Equation (2020) Hematocrit Auto (Bld) [Volum e fraction]Ordered By: Lucio Ayoub 05-22-2024 Hematocrit (Bld) [Volume fraction] 40.2 % 37-47 [facility] Hemoglobin measurementOrdere d By: Lucio Ayoub on 05-22-2024 Hemoglobin (Bld) [Mass/Vol] 13.1 g/dL 12.0-15.0 [facility] Immature granulocytes/100 WB C Auto (Bld)Ordered By: Lucio Ayoub on 05-22-2024 Immature granulocytes/100 WBC (Bld) 0.400 % 0.0-0.9 [facility] Comment on above: IG% - Immature Granu locytes (promyelocytes, myelocytes and metamyelocytes) > 1% indicates that a LEFT SHIFT is Present. L506.1001on 05-22-2024 Vitamin D 25-OH 20.8 ng/mL Low 30-100 [facility] Comment on above: Result Comment: Roxie min D Status Deficiency: <20 ng/mL (50nmol/L) Insufficiency: 20-30 ng/mL (50-75 nmol/L) Sufficiency: 30-100 ng/mL (75-250 nmol/L) Toxicity: >100 ng/mL (>250 nmol/L) Performed By: #### L 100.0100, L500.4100, L501.9520, L500.4050, L506.1001 ####[facility] [address] [place], [place], [id number] LDL calc ser/plasOrdered By: Lucio Ayoub on 05-22-2024 Cholesterol in LDL [Mass/Vol] 86 mg/dL [facility] Comment on above: Btacjdghkw=077-205 m g/dL & Higher Fxkj=114 mg/dL or greater LDL Cholesterol, Calculated 86 mg/dL [facility] Comment on above: Wuluwdjohn=572-611 m g/dL & Higher Zshx=561 mg/dL or greater Laboratory - Chemistry and C hemistry - challengeOrdered By: Lucio Ayoub on 05-22-2024 AST [Catalytic activity/Vol] 24 U/L <32 [facility] Lipid Profileon 05-22-2024 CHOL:HDL 2.40 Normal [facility] Comment on above: Performed By: #### L 100.0100, L500.4100, L501.9520, L500.4050, L506.1001 ####[facility] [address] [place], [address] Cholesterol [Mass/Vol] 203 mg/dL High <=200 [facility] Comment on above: Result Comment: Chol esterol level, Desirable <200 mg/dL Borderline high cholesterol 200-239 mg/dL High cholesterol >=240 mg/dL Recommendations of the NCEP Adult Treatment Panel for the following risk-cutoff thresholds for the [place] population. Performed By: #### L 100.0100, L500.4100, L501.9520, L500.4050, L506.1001 ####[facility] [address] [place], [address] Cholesterol in HDL [Mass/Vol] 85 mg/dL Normal [facility] Comment on above: Result Comment: Liliana onal Cholesterol Education Program (NCEP) guidelines: <40 mg/dL: Low HDL-cholesterol (major risk factor for CHD) >= 60 mg/dL: High HDL-cholesterol (negative risk factor for CHD) HDL-cholesterol is affected by a number of factors, e.g. smoking, exercise, hormones, sex and age. Performed By: #### L 100.0100, L500.4100, L501.9520, L500.4050, L506.1001 ####[facility] [address] [place], [address] Cholesterol in LDL [Mass/Vol] 86 mg/dL Normal [facility] Comment on above: Result Comment: Bord ccqosa=896-694 mg/dL Higher Avir=027 mg/dL or greater Performed By: #### L 100.0100, L500.4100, L501.9520, L500.4050, L506.1001 ####[facility] [address] [place], [address] Cholesterol in VLDL [Mass/Vol] 32 mg/dL Normal 5-40 [facility] Comment on above: Performed By: #### L 100.0100, L500.4100, L501.9520, L500.4050, L506.1001 ####[facility] [address] [place], [address] Triglyceride [Mass/Vol] 161 mg/dL Normal [facility] Comment on above: Result Comment: The drugs N-Acetylcysteine and Metamizole may falsely depress this assay. Normal range: <150 mg/dL Borderline High: 150-199 mg/dL High: 200-499 mg/dL Very High: >500 mg/dL Performed By: #### L 100.0100, L500.4100, L501.9520, L500.4050, L506.1001 ####[facility] [address], [address] Lymphocytes Auto (Unsp spec) [#/Vol]Ordered By: Lucio Ayoub on 05-22-2024 Lymphocytes (Bld) [#/Vol] 2.10 10*3/uL 0.83-4.5 1 [facility] Lymphocytes/100 WBC Auto (Un sp spec)Ordered By: Lucio Ayoub on 05-22-2024 Lymphocytes/100 WBC (Bld) 27.2 % 19-41 [facility] MCV (mean corpuscular volume ) determinationOrdered By: Lucio Ayoub on 05-22-2024 MCV (RBC) [Entitic vol] 91.6 fL 81-99 [facility] Mean corpuscular hemoglobin (MCH) determinationOrdered By: Lucio Ayoub on 05-22-2024 MCH (RBC) [Entitic mass] 29.8 pg 27.0-32.0 [facility] Mean corpuscular hemoglobin concentration (MCHC) determinationOrdered By: Lucio Ayoub on 05-22-2024 MCHC (RBC) [Mass/Vol] 32.6 g/dL 32-36 [facility] Mean platelet volume determi nationOrdered By: Lucio Ayoub on 05-22-2024 Platelet mean volume (Bld) [Entitic vol] 10.0 fL 6.2-12.0 [facility] Monocyte percentageOrdered B y: Lucio Ayoub on 05-22-2024 Monocytes/100 WBC (Bld) 7.1 % 0-10 [facility] Neutrophil percentageOrdered By: Lucio Ayoub on 05-22-2024 Neutrophils/100 WBC (Bld) 62.2 % 47-70 [facility] Nucleated red blood cell per centageOrdered By: Lucio Ayoub on 05-22-2024 Nucleated RBC/100 WBC (Bld) [Ratio] 0 % 0-5 [facility] Platelet countOrdered By: Adriano Ayoub on 05-22-2024 Platelets (Bld) [#/Vol] 321 10*3/uL 150-450 [facility] Potassium (Unsp spec) [Mass/ Vol]Ordered By: Lucio Ayoub on 05-22-2024 Potassium [Moles/Vol] 3.8 mmol/L 3.3-5.1 [facility] Potassium measurement (mass/ volume)Ordered By: Lucio Ayoub on 05-22-2024 Potassium (Unsp spec) [Mass/Vol] 3.8 mmol/L 3.3-5.1 [facility] RBC Auto (Bld) [#/Vol]Ordere d By: Lucio Ayoub on 05-22-2024 RBC (Bld) [#/Vol] 4.39 10*6/uL 4.2-5.4 [facility] Screening total cholesterol/ high density lipoprotein (HDL) cholesterol ratioOrdered By: Lucio Ayoub on 05-22-2024 Cholesterol.total/Cholest kaitlyn in HDL [Mass ratio] 2.40 {ratio} [facility] Serum creatinine measurement (mass/volume)Ordered By: Lucio Ayoub on 05-22-2024 Creatinine [Mass/Vol] 0.75 mg/dL 0.70-1.20 [facility] Serum globulin measurementOr dered By: Lucio Ayoub 05-22-2024 Globulin (S) [Mass/Vol] 2.9 g/dL 2.2-4.2 [facility] Serum glucose measurement (m ass/volume)Ordered By: Lucio Ayoub on 05-22-2024 Glucose [Mass/Vol] 147 mg/dL High 70-99 [facility] Serum or plasma alanine cervantes otransferase (ALT) measurementOrdered By: Lucio Ayoub 05-22-2024 ALT [Catalytic activity/Vol] 26 U/L <35 [facility] Serum or plasma albumin guy urement (mass/volume)Ordered By: Lucio Ayoub on 05-22-2024 Albumin [Mass/Vol] 4.1 g/dL 3.4-4.8 [facility] Serum or plasma albumin/glob ulin mass ratioOrdered By: Lucio Ayoub 05-22-2024 Albumin/Globulin [Mass ratio] 1.4 {ratio} 0.9-2.4 [facility] Serum or plasma alkaline aakash sphatase measurementOrdered By: Lucio Ayoub 05-22-2024 ALP [Catalytic activity/Vol] 165 U/L High 35-104 [facility] Serum or plasma calcium guy urement (mass/volume)Ordered By: Lucio Ayoub 05-22-2024 Calcium [Mass/Vol] 9.5 mg/dL 7.6-11.0 [facility] Serum or plasma cholesterol in HDL measurement (mass/volume)Ordered By: Lucio Ayoub 05-22-2024 Cholesterol in HDL [Mass/Vol] 85 mg/dL >40 [facility] Comment on above: National Cholesterol Education Program (NCEP) guidelines:<40 mg/dL: Low HDL-cholesterol (major risk factor for CHD)>= 60 mg/dL: High HDL-cholesterol (negative risk factor for CHD)HDL-cholesterol is affected by a number of factors, e.g. smoking, exercise, hormones, sex and age. Serum or plasma cholesterol measurement (mass/volume)Ordered By: Lucio Ayoub 05-22-2024 Cholesterol [Mass/Vol] 203 mg/dL High <201 [facility] Comment on above: Cholesterol level, D esirable <200 mg/dLBorderline high cholesterol 200-239 mg/dLHigh cholesterol >=240 mg/dLRecommendations of the NCEP Adult Treatment Panel for the following risk-cutoff thresholds for the [place] population. Serum or plasma urea nitroge n measurement (mass/volume)Ordered By: Lucio Ayoub 05-22-2024 Urea nitrogen [Mass/Vol] 11 mg/dL 4-19 [facility] Sodium levelOrdered By: Lucio Ayoub 05-22-2024 Sodium [Moles/Vol] 140 mmol/L 133-145 [facility] TSH DL <= 0.005 mIU/L QnOrde red By: Lucio Ayoub on 05-22-2024 Thyroid Stimulating Hormone (TSH) 17.500 uIU/mL High 0.300-4.200 [facility] TSH Qn 17.500 uIU/mL High 0.300-4.200 [facility] Thyroid Stim Hormone (TSH)on 05-22-2024 TSH 17.500 uIU/mL High 0.300-4.200 [facility] Comment on above: Performed By: #### L 100.0100, L500.4100, L501.9520, L500.4050, L506.1001 ####[facility] [address] [place], [address] Total proteinOrdered By: Lucio Ayoub on 05-22-2024 Protein [Mass/Vol] 7.0 g/dL 5.9-8.4 [facility] Triglycerides measurementOrd ered By: Lucio Ayoub on 05-22-2024 Triglyceride [Mass/Vol] 161 mg/dL <199 [facility] Comment on above: The drugs N-Acetylcy steine and Metamizole may falsely depress this assay. Normal range: <150 mg/dLBorderline High: 150-199 mg/dLHigh: 200-499 mg/dLVery High: >500 mg/dL Vitamin D, 25-hydroxyOrdered By: Lucio Ayoub on 05-22-2024 Vitamin D 25-Hydroxy 20.8 ng/mL Low 30-100 [facility] Comment on above: Vitamin D StatusDefi ciency: <20 ng/mL (50nmol/L)Insufficiency: 20-30 ng/mL (50-75 nmol/L)Sufficiency: 30-100 ng/mL (75-250 nmol/L)Toxicity: >100 ng/mL (>250 nmol/L) White blood cell (WBC) count Ordered By: Lucio Ayoub on 05-22-2024 WBC (Bld) [#/Vol] 7.7 10*3/uL 4.4-11.0 [facility] D/C Summary- SPon 04-26-2024 D/C Summary- SP [facility] Speech Pathology [facility] [address] [place] [address]. [address] [place] [address] / REHABILITATION SERVICES DISCHARGE SUMMARY MR#: [id number] Acct: [id number] Name: JAEL HUGGINS Rep #: [id number] : 1945 78 From: Myra Lowery M.S., CCC-BUSINESS TEST ANALYST Referring Dr.: Dr. Lucio Ayoub MD Status: REG RCR Insurance: [employer] SELF PAY INSURANCE Discharge Summary Discharged: Discharge: JAEL HUGGINS is a 78 year old female who presented to [facility] Speech Therapy on 10/12/2023 following dx of aphasia and mild cognitive impairment. She attended 39 additional sessions targeting expressive language production through use of VNEST, Semantic Feature Analysis, aphasia word finding strategies, and executive functioning tasks. Her last appt at [facility] was on 04/19/2024. As of 04/25/2024, Pt will be getting evaluated by home health services. Pt's family wishes for Jael to stop driving, so they are taking a break of outpatient services at this time. Will re- evaluate following physician script. Thank you for allowing me to participate in the care of your patient. 04/26/24 1400 CC: Dr. Lucio Ayoub MD RE Signed Normal [facility] OT D/C of Non Returning Pton 04-25-2024 OT D/C of Non Returning Pt [facility] Occupational Therapy [address] [place] [address] / REHABILITATION SERVICES DISCHARGE SUMMARY MR#: [id number] Acct: [id number] Name: JAEL HUGGINS Rep #: [id number] : 1945 78 From: Blanca Britton Referring DrAlice: Dr. Lucio Ayoub MD Status: REG RCR Eval Date: Discharge Date: Patient Information Patient Information: JAEL HUGGINS was seen in my office for initial evaluation on 03/27/24. The following Plan of Care was established for this patient: POC Established Initial Frequency: 1-2x /Week Initial Duration: 4-6 Weeks Plan: Chart can be discharged. Anticipated Interventions Anticipated Interventions: A/AAROM/PROM, Strengthening, Triggerpoint Release, Modalities, Orthoses, Fine Motor Coord/Aftab, Education re Diagnosis and Home Program Last Seen Last Seen: This patient was last seen in our office 04/24/24. Pertinent comments regarding their Occupational therapy will appear below: This 78 year old female seen by OT with dx of carpal tunnel syndrome. pt with progress made throughout POC however has now started home health therapy services and no longer to see outpatient at this time. discharge from OT caseload. At this point I will be discontinuing this patient from occupational therapy. I would be happy to see this patient again in the future if found appropriate by the physician. Thank you! Blanca Britton 04/25/24 1732 CC: Dr. Lucio Ayoub MD CK Signed Normal [facility] Bilirubin Test strip Ql (U)O rdered By: Lucio Ayoub on 04-06-2024 Bilirubin Ql (U) Negative Negative [facility] Calcium oxalate crystals LM Ql (Urine sed)Ordered By: Lucio Ayoub on 04-06-2024 Urine Calcium Oxalate Crystals 3+ /hpf [facility] Calcium oxalate crystals det ection in urine sediment by light microscopyOrdered By: Lucio Ayoub on 04-06-2024 Calcium oxalate crystals LM Ql (Urine sed) 3+ /hpf [facility] Epithelial cells.squamous LM Ql (Urine sed)Ordered By: Lucio Ayoub on 04-06-2024 Epithelial cells.squamous LM.HPF (Urine sed) [#/Area] 10 /[HPF] 5-10 [facility] Glucose Ql (U)Ordered By: Adriano Ayoub on 04-06-2024 Urine Glucose (UA) Normal mg/dl Normal [facility] Ketones Test strip Ql (U)Ord ered By: Lucio Ayoub on 04-06-2024 Ketones Ql (U) Negative Negative [facility] Microscopic analysis of urin e for red blood cells (RBC)Ordered By: Lucio Ayoub on 04-06-2024 Microscopic analysis of urine for red blood cells (RBC) 0-5 SEEN /hpf 0-5 [facility] Urine RBC 0-5 SEEN /hpf 0-5 [facility] Mucus LM Ql (Urine sed)Order ed By: Lucio Ayoub on 04-06-2024 Mucus Ql (Urine sed) 0 SEEN /hpf [facility] Nitrite Test strip Ql (U)Ord ered By: Lucio Ayoub on 04-06-2024 Nitrite Ql (U) Negative Negative [facility] Protein Test strip Ql (U)Ord ered By: Lucio Ayoub on 04-06-2024 Protein Ql (U) 15 mg/dl High Negative [facility] Squamous epithelial cells de tection in urine sediment by light microscopyOrdered By: Lucio Mega on 04-06-2024 Epithelial cells.squamous LM Ql (Urine sed) 10-25 SEEN /hpf 5-10 [facility] Urinalysis, Completeon 04-06 BACTERIA 1+ /hpf Normal None Seen [facility] Comment on above: Order Comment: Urine , Random Performed By: #### L [id number] ####[facility] [address] [place], [address] RBC 0-5 SEEN Normal 0-5 [facility] Comment on above: Order Comment: Urine , Random Performed By: #### L [id number] ####[facility] [address] [place], [address] CA OX CRYSTAL 3+ /hpf Normal [facility] Comment on above: Order Comment: Urine , Random Performed By: #### L [id number] ####[facility] [address] [place], [address] EPI,SQUAMOUS 10-25 SEEN Normal 5-10 [facility] Comment on above: Order Comment: Urine , Random Performed By: #### L [id number] ####[facility] [address] [place], [address] WBC 10-25 SEEN Normal 0-5 [facility] Comment on above: Order Comment: Urine , Random Performed By: #### L [id number] ####[facility] [address] [place], [address] Mucus Ql (Urine sed) 0 SEEN Normal [facility] Comment on above: Order Comment: Urine , Random Performed By: #### L [id number] ####[facility] [address] [place], [place], [id number] Urine blood detectionOrdered By: Lucio Ayoub on 04-06-2024 Urine Occult Blood 10 /ul High Negative [facility] Urine clarityOrdered By: Lucio Ayoub on 04-06-2024 Clarity (U) Sl. Cloudy Clear [facility] Urine color determinationOrd ered By: Luico Ayoub on 04-06-2024 Color (U) Yellow Yellow [facility] Urine glucose detectionOrder ed By: Lucio Ayoub on 04-06-2024 Glucose Ql (U) Normal mg/dl Normal [facility] Urine leukocyte esterase det ection by dipstickOrdered By: Lucio Ayoub on 04-06-2024 Leukocyte esterase Test strip Ql (U) 500 /ul High Negative [facility] Urine pHOrdered By: Lucio Ayoub on 04-06-2024 pH (U) 5.0 [pH] 5.0 - 8.0 [facility] Urine sediment bacteria coun t by microscopy (number/high power field)Ordered By: Lucio Ayoub on 04-06-2024 Bacteria LM.HPF (Urine sed) [#/Area] 1 /[HPF] None Seen [facility] Urine specific gravity measu rementOrdered By: Lucio Ayoub on 04-06-2024 Specific gravity (U) [Rel density] 1.025 1.002-1.030 [facility] Urine urobilinogen measureme ntOrdered By: Lucio Ayoub on 04-06-2024 Urobilinogen Ql (U) 1 mg/dl High Normal [facility] Urobilinogen Ql (U)Ordered B y: Lucio Ayoub on 04-06-2024 Urobilinogen (U) [Mass/Vol] 1 mg/dL High Normal [facility] White blood cell countOrdere d By: Lucio Ayoub on 04-06-2024 Urine WBC 10-25 SEEN /hpf 0-5 [facility] White blood cell count 10-25 SEEN /hpf 0-5 [facility] OT General Evaluationon OT General Evaluation [facility] Occupational Therapy Health[address] [place] [address] / REHABILITATION SERVICES INITIAL EVALUATION MR#: [id number] Acct: [id number] Name: JAEL HUGGINS Rep #: [id number] : 1945 78 From: Blanca Britton Referring Dr.: Dr. Lucio Ayoub MD Status: REG RCR Insurance: [employer] MEDIC[employer] Eval Date: MEDICAID Patient's Visit Information Visit Information Visit Information: JAEL HUGGINS is a 78 year old F, referred to Occupational Therapy by Dr. Lucio Ayoub MD, with a diagnosis of R carpal tunnel. Date of Evaluation: 03/27/24 Occupational Therapist: Blanca Britton Subjective Subjective: This 78 year old female arrives referal to OT due to R sided carpal tunnel. Pt did receive a steriod injection complete 01/31/24. pt does not feel like injection helped. pt reports numbness of thumb and D2-3. pt denies pain however states handwriting gripping and carrying of items has become more difficult. symptoms worse at night. Pt is R hand dominant. Pt symptoms started 6 months ago. pt does state she wore brace for a while which seemed to help but made sleeping difficult. nerve conduction study complete 01/25/24 indicating mild carpal tunnel syndrome. Pain R wrist region: Current Pain Intensity: 0 Pain Intensity Range: 10 Objective Objective/Observation : arrives using walker as means of mobility pushes walker far out in front of her stops often while walking difficulty with word finding during session difficulty with multi step commands ROM Wrist: R 70/50 L 65/50 Opposition: see below ROM Comments: able to oppose to D5 however causes pain with completion pt states pain goes up to a 10 when doing that Strength Boom Crane Operator: R 25# L 45# Lateral Pinch: R 3# L 3# Tripod Pinch: R 2# L 3# Strength Comments: intrinsic tightness in R hand fine on L hand Edema Other: none noted Sensation Sensation Comments: R hand all digits testing at 3.84 indicating loss of protective sensation Nine Hole Peg Right: 54 sec Left: 27 sec Quick DASH-Disab of Arm,Shoulder Hand Quick DASH Score: 59.0900 Goals Goal:ROM equal to unaffected hand: Yes Goal:Boom Crane Operator/Pinch strength at least 75% of unaffected hand: Yes Goal:No pain with affected hand use: Yes Goal:Full use of affected hand in daily activities including work: Yes Goal:Improvement in sensation documented by [place] monofiliaments: Yes Comment: quick dash Other Goal: pt will improve quick dash score by 15 points or more for improved functional use of R UE. pt will demonstrate 100% carryover in use of proper bracing for nighttime wear in order to decrease numbness and tingling by third session pt will improve 9 hole peg assessment RUE equal to or greater than non affected side by discharge Rehabilitation General Assessment: This 78 year old female arrives with dx of R carpal tunnel syndrome. Pt demonstrates impairments in ROM, strength as well as numbness and tingling and decreased coordination of R hand. pt with increased difficulty managing hand writing as well as opening of containers and maintaining grasp on items. Pt would benefit from OT services 1-2x a week for 4-6 weeks in order to address above impairments. Rehabilitation Potential: Good Anticipated Interventions Anticipated Interventions: A/AAROM/PROM, Strengthening, Triggerpoint Release, Modalities, Orthoses, Fine Motor Coord/Aftab, Education re Diagnosis and Home Program Visit Plan Frequency: 1-2x /Week Duration: 4-6 Weeks General Plan: AROM/AAROM/PROM nerve glide modalities joint protection and positioning bracing TEXT: Thank you for the opportunity to evaluate your patient. For Medicare and Medicare HMO plans, please review the plan of care and approve it. It will need to be FAXED BACK to us at [phone] for Medicare purposes. Please let me know if there are questions or concerns regarding this plan of care. Physician Signature: Date : 03/27/24 1501 CC: Dr. Lucio Ayoub MD CK Signed For Medicare only, by signing this I certify the plan of care. Physicians Signature Date Normal [facility] SP/HP.JOSÉVon 03-01-2024 SP/HP.SPREEV [facility] Speech Pathology [facility] [address] [place] [address] / REEVALUATION / MEDICARE RECERTIFICATION SPEECH THERAPY MR#: [id number] Acct: [id number] Name: JAEL HUGGINS Rep #: [id number] : 1945 78 From: Myra Lowery M.S., [facility]-BUSINESS TEST ANALYST Referring Dr.: Dr. Lucio Ayoub MD Insurance: [employer] MEDICAID Visit History Visit Info Date of Eval: 10/12/23 Visit: 1 Patient's Approved Number of Visits: 30 Insurance Date Limit: 03/20/24 Paraffiner: LUNA Martinez Attending Doctor: Referring Doctor: Reason for Referral: MILD COGNITIVE IMPAIRMENT/APHASIA. RX HERE Smoking Status: Never smoker Diagnosis Diagnosis: Mild-moderate cognitive-linguistic disorder Pain Is pain an issue with your current prescribed condition?: No Personal Preferred language: Fijian Patient Allergies Allergies Allergies: Allergies No Known Allergies Allergy (Verified 01/03/24 10:33) Previous/Current Goals Goals 1-5 Previous Goal #1: Jael will demonstrate use of word finding strategies to complete complex convergent and divergent naming tasks with 80% acc across 3 measured opportunities when given fading cues. Goal 1 Status: GOAL MET - [place] categories: Foods 5/5, Drinks 5/5, Animals 9 (no limit given), weather 2 independently given and with cues she added 3 more. - Abstract Categories: things that grow - listed 6 veggies then cued other things - she listed 1 then with maximal cues she could do 2 more. - Pt was able to list 6 items of food that was at thanksgiving yesterday with only mild hesitations after first 4 foods. Gave the patient a list of 10 word finding strategies (single words/phrases with a 1-2 sentence descriptors below). Explained each one to patient and gave examples. She stated she gestures now. - Jael completed a check writing task where she wrote four checks. Jael had multiple spelling mistakes along with illegible hand writing for the company names and spelling the numbers. ST created a sheet that had the spelling for numbers 1 through 20, 30, 40, 50, 60, 70, 80, 90, and 100 to have next to her at home when she is paying bills. Previous Goal #2: Jael will generate 3 sentences when given a target verb following WHO+verb+WHAT structure with 5/6 targets given min cues across 3 consecutively measured sessions. Goal 2 Status: GOAL PROGRESSING: GOAL NOT MET ACROSS 3 MEASURED SESSIONS, Pt acc is inconsistent, see below. Verb: fix - On first round of three sentences, Jael identified 6/6 targets independently - On second of three sentences, Jael identified 2/6 targets independently and benefited from mod verbal and semantic cues to improve to 6/6. Jael returned her HW from last week and expressed she was still confused on how to complete it. She stated she didn't know if she could use the verb conjugated as ate. This was the first time Jael showed confusion at the conjugations. ST thinking this could've been the first time we used a verb that had an irregular past tense. After discussing and doing a few trial sentences, Pt stating she felt more confident with completing it for homework. - Homework Verb: eat - On first round of three sentences, Jael identified 5/6 targets independently - On second of three sentences, Jael identified 6/6 targets independently and benefited from mod verbal and semantic cues to improve to 6/6. Previous Goal #3: Jael will generate 3 additional pieces of information answering WHERE/WHEN/WHY of one self-created WHO+verb+WHAT sentence with 2 of the 3 questions answered independently across 3 consecutively measured sessions. Goal 3 Status: GOAL PROGRESSING: Verb: fix - Jael generated three additional pieces of information with 1/3 independently and benefited from min-mod verbal and semantic cues to improve to 3/3. Homework Verb: eat - Jael generated three additional pieces of information with 1/3 independently and benefited from mod verbal and semantic cues to improve to 3/3. Previous Goal #4: Jael will read short passages and answer open-ended comprehension questions re: the material at 70% accuracy given min verbal and logical cues. Goal 4 Status: GOAL MET Jael can read simple to moderate level paragraphs and answer open-ended questions about the paragraph with greater than 70% acc given min verbal and logical cues. Jael benefits from underlining pertinent information from the paragraph when reading to aid in answering questions after she finishes reading. Suspect this also helps keep her focus and prevents skimming the paragraph. Reference: Neuro-QoL instrument In past 7 days I had to read something several times to understand it: Very often (several times a day) My thinking was slow: Never I had to work really hard to pay attention or i would make a mistak (more content not included)... Normal [facility] NCS and/or EMG Patienton NCS and/or EMG Patient [facility] Pulmonary Services/Neurology [address] [place] [address] MR#: [id number] Acct: [id number] Name: JAEL HUGGINS Rep #: [id number] : 1945 78 From: Rosario Cisneros MD Referring Dr: Ronnell Fontenot PA-C Status: REG CLI Location: PSN Date: 01/25/24 Sex: F C NCS and/or EMG Patient Report Ordering Doctor: Ronnell Fontenot DATE OF SERVICE: 01/25/24 Jael presents for electrodiagnostic testing of the right upper limb. She reports numbness and tingling in the first 3 digits of the right hand for the past 6 weeks. Electrodiagnostic findings: Right median motor nerve demonstrates prolonged latency with normal amplitude and conduction velocity. Normal right ulnar motor response. Normal median and ulnar F???waves. Prolonged right median sensory latency at the wrist and palm. Normal right ulnar and radial sensory response. Needle EMG testing was performed the right upper limb. All muscles tested showed no evidence of denervation with normal motor unit action potentials. Electrodiagnostic impression: This is an abnormal study in the right upper limb. 1. Electrodiagnostic findings suggestive of right-sided median mononeuropathy. This consistent with a mild right carpal tunnel syndrome. Multi Select Codes Neurology Neurology Interp Codes: 98971-06 Musc test done w/n test comp (interp) and 45974-80 Nrv cndj test 7- 8 studies (interp) 01/25/24 1451 Date Rosario Cisneros MD CC: SUZETTE Fontenot; Dr. Rosario Cisneros MD; Dr. Lucio Ayoub MD Date Dictated: 01/25/241448 Date Transcribed: 01/25/241448 General Foundry Worker: CATRINA Signed Normal [facility] SP/HP.Lars 01-18-2024 SP/HP.SPREEV [facility] Speech Pathology [facility] [address] [place] [address] / REEVALUATION / MEDICARE RECERTIFICATION SPEECH THERAPY MR#: [id number] Acct: [id number] Name: JAEL HUGGINS Rep #: [id number] : 1945 78 From: Taylor De Anda Referring Dr.: Dr. Lucio Ayoub MD Insurance: [employer] MEDICAID Visit History Visit Info Date of Eval: 10/12/23 Visit: 1 Patient's Approved Number of Visits: 10 Insurance Date Limit: 03/20/24 Paraffiner: AB History Attending Doctor: Referring Doctor: Reason for Referral: MILD COGNITIVE IMPAIRMENT/APHASIA. RX HERE Medical Diagnosis: Mild Cognitive Impairment Previous speech therapy: Yes Results: FROM D/C SUMMARY ON TCU IN FEBRUARY 2022: SKILLED INTERVENTION SUMMARY: Patient participated in 2.[address] cognitive therapy targeting attn, memory and executive function to safely return home w/ least amount of supervision. Prior to hospitalization, patient was (I) w/ all functional and complex cognitive tasks . Patient has been instructed and trained on compensatory strategies to improve cognition specifically attn, memory and executive function. PATIENT RESPONSE TO TX: Patient w/ excellent participation and highly motivated to return home. Patient w/ somewhat improved awareness of cognitive deficits and need for additional assistance upon d/c home. Patient has poor attention to tasks requiring frequent redirection to task at hand - poor attn leads patient to make careless errors while completing therapeutic tasks such as writing checks, counting money , reading clocks, etc. Patient has made consistent progress towards retirement and short term goals, however will need continued speech therapy at next level of care. D/C RECOMMENDATIONS: In order to facilitate return to prior level of living, patient requires continued ST services at next level of care in order to enhance pt.' s quality of life by an improved ability to promote (I) at home, perform functional and complex daily living tasks and safely return home w/ least amount of supervision. Recommending family to take over complex cognitive tasks including medications and finances at this time d/t cognitive impairment. F/u w/ PCP for further cognitive assessment. Pt. and family agreeable to continued ST at next level of care. Other Relevant Medical History/Diagnoses/Uzair marcelo: JAEL HUGGINS is a 78 year old female who presents [facility] following a recent dx of mild cognitive impairment. She is a current physical therapy patient rehabing balance and closed R hip fracture from January 2022. Physical therapy referred to speech therapy d/t concerns with Pt having difficulty expressing herself. Jael endorses this and states that ever since her surgery she has felt difficulties with word finding. She states she doesn't feel it is completely memory related. States that it is difficult for her to find the words to relay a memory. Following her hip surgery in January 2022, she participated in 2.5 weeks of speech therapy on the Transitional Care Unit at [facility]. At the time of her d/c it was recommended that she participate in further outpatient speech therapy to address cognitive communication. Pt stating feeling like she didn't need additional therapy at that time but does now. Medications related to this diagnosis: Current Medications include: Levothyroxine Sodium (75MCG) for 1 tablet every day, Pantoprazole Sodium (40 MG) delay release for 1 tablet every day, and most recently prescribed on 09/29/23 Memantine HCl (10 MG) for 1/2 tab daily x7 days, then 1/2 tab bid x7 days, then 1/2 tab AM and 1/2 tab PM x7 days, then 1 tab bid continuously Smoking Status: Never smoker Diagnosis Diagnosis: Moderate Cognitive Communication Disorder; Aphasia Pain Is pain an issue with your current prescribed condition?: No Personal Preferred language: Fijian Patient Allergies Allergies Allergies: Allergies No Known Allergies Allergy (Verified 01/03/24 10:33) Previous/Current Goals Goals 1-5 Previous Goal #1: Jael will demonstrate use of word finding strategies to complete complex convergent and divergent naming tasks with 80% acc across 3 measured opportunities when given fading cues. Goal 1 Status: Goal Progressing: [place] categories divergent namin% accuracy given moderate verbal cues. Previous Goal #2: Jael will generate 3 sentences when given a target verb following WHO+verb+WHAT structure with 5/6 targets given min cues across 3 consecutively measured sessions Goal 2 Status: Goal Progressing: Generated first three sentences with WHO+verb+WHAT with 67% accuracy independently and improved to 100% accuracy with mod verbal and visual cues. Previous Goal #3: Jael will generate 3 additional pieces of information answ (more content not included)... Normal [facility] Procedure Reporton 4 Procedure Report [facility] Medical Records Department [address] [place] [address] Procedure Report 01/03/24 1143 MR#: [id number] Acct: [id number] Name: JAEL HUGGINS Rep #: [id number] : 1945 78 From: Mi Fajardo [facility] COORDINATOR-C PCP: Dr. Lucio Ayoub MD Status:REG CLI Location: RAD Procedure Report Date of Procedure: 01/03/24 Assessment Plan Assessment/Plan (1) Mild cognitive impairment: PLAN: PROCEDURE: Fluoroscopic guided Lumbar Puncture. ORDERING PROVIDER: Dr. Ayoub CLINICAL INDICATION: Female, 78 years old. Mild cognitive impairment. PROVIDER: Mi Fajardo APRN-CERTIFIED HYPERBARIC TECHNICIAN MEDICATIONS: 2% lidocaine administered subcutaneously for local anesthesia ACCESS SITE: Lower posterior back. NEEDLE: 22-gauge spinal needle. SPECIMEN: Approximately 12 mL clear colored CSF fluid. COMPLICATIONS: None immediate. FLUOROSCOPY TIME (if supplied): 1 minutes/58 seconds. 34.4 mGy The risks, benefits, and alternatives to the procedure were explained to the patient. The specific risks of bleeding, infection, and neurovascular injury were detailed and accepted. Witnessed informed consent was obtained. The patient was placed on the fluoroscopic table in the prone position. The level for needle entry was determined and marked. The overlying skin was cleaned with betadine and draped in the usual sterile fashion. 2% lidocaine was administered subcutaneously for local anesthesia. Under fluoroscopic guidance a 22-gauge spinal needle was advanced. The thecal sac was entered at the L 3-L 4 vertebral level. The inner stylet was removed. There was spontaneous flow of clear CSF fluid. The patient was placed in a reversed Trendelenburg position. Approximately 12 mL of cerebrospinal fluid was collected using gravity. The specimen was collected and submitted to the laboratory for further evaluation. The needle was withdrawn. Hemostasis was achieved and a sterile dressing placed. The patient tolerated the procedure well without any immediate complications. The patient was placed supine for nursing observation in the holding bay. IMPRESSION: Successful fluoroscopic-guided lumbar puncture. Procedures Radiology Radiology Xray Procedures: 29730 Lumbar Puncture Dx Multi Select Codes Radiology Rad Xray Procedures: 15999-32 Fluoroscopic guidance for needle placement 01/03/24 1145 Cosigner Signature (if applicable): CC: MEME Fajardo; Dr. Lucio Ayoub MD Signed Normal [facility] PT D/C Summary (1)on 024 PT D/C Summary (1) [facility] Physical Therapy [facility] [place] [id number] / REHABILITATION SERVICES DISCHARGE SUMMARY MR#: [id number] Acct: [id number] Name: JAEL HUGGINS Rep #: [id number] : 1945 78 From: Perla Silver MPT Referring Dr.: Dr. Lucio Ayoub MD Status: REG R Insurance: [employer] MEDICAID Discharge Summary D/C summary: It has been my pleasure to treat JAEL HUGGINS referred by Dr. Lucio Ayoub MD, with the diagnosis of closed R hip fracture 1 year or so ago and sciatica for a total of 44 visit(s). Discharge Date: 12/21/23 Please see the following information for a summary of their discharge status. Subjective Subjective: She is doing Home exercises at the countertop Pain R hip pain: Pain Intensity (Out of 10): 3 R knee pain: Pain Intensity (Out of 10): 0 L knee pain: Pain Intensity (Out of 10): 0 L rib pain: Pain Intensity (Out of 10): 0 Overall Improvement % Improvement: 75 Objective Objective/Function: Gait: pt is walking with her walker with improved fluidity with her LE with a wheeled walker. She does not feel safe walking without a walker Pt still has slight pain with standing hip march but able to tolerate doing the exercise Goals Goal 1:: I HEP Goal Progress: Goal Met Goal 2:: Increase LE strength (at the time of the eval: LE MMT: R hip flex 6 and L 13.3 R knee ext 19.9 and L 22.7 R knee flex 8.8 and L 14 R DF 16.9 and L DF 22.7 Supine hip Abd R 13.7 and L 18). Goal Progress: Progressing Goal 3:: Be able to walk with a straight cane with CGA Goal Progress: Not Progressing Goal 4:: Be able to stand and hip flex 2 X 10 without any pain or weakness Goal Progress: Progressing Goal 5:: Be able to walk with equal stance time on B legs and continuous stride with least restrictive device Goal Progress: Progressing Plan Plan: DC PT to HEP D/C Information Discharge Comments: DC PT to HEP d/c sentence: If there are questions or concerns regarding this patient's physical therapy, please feel free to call me at [phone]. Thank you for the referral of this patient. Sincerely, Perla Silver, MPT Balance/Gait/Function al tests Balance/Special Test Scores Lower Extremity Functional Score: 31 Improvement % Improvement: 75 12/21/23 1342 CC: Dr. Lucio Ayoub MD Signed Normal [facility] Brain without Contraston Brain without Contrast [facility] Imaging Services [address] [place] [id number] [id number] Brain without Contrast MR#: [id number] Acct: [id number] Name: JAEL HUGGINS Rep #: [id number] : 1945 F 78 From: Rex Montana MD PCP: Dr. Lucio Ayoub MD Status: REG CLI Study: Brain without Contrast Date of Exam: 11/22/23 Exam# [id number] Ordering Dr: Lucio Ayoub MD [id number] STUDY: MRI BRAIN WITHOUT CONTRAST REASON FOR EXAM: Female, 78 years old. APHASIA TECHNIQUE: Standardized multiplanar fat and water weighted pulse sequences were obtained. COMPARISON: None. FINDINGS: Normal size of the ventricles and extra-axial spaces for the patient''s age. Normal white matter tracts of the supratentorial brain. There is no evidence for recent intracranial ischemia or other cause of cytotoxic edema on diffusion weighted imaging (DWI). Normal T2* images of the brain without demonstrated susceptibility artifact. There is no demonstrated hemosiderin stain. Normal bilateral basal ganglia. Normal thalami. There is no extra-axial fluid accumulation. Normal flow voids within the major intracranial circulation suggesting patency by spin echo criteria. Normal sella turcica, pituitary gland, infundibular stalk, optic chiasm and hypothalamus. Normal tectal plate and pineal gland. Normal midbrain, thomas and medulla. Normal cerebellum. Normal basal cisterns. Normal bilateral temporal bones. Normal bilateral internal auditory canals. No demonstrated orbital abnormality, within the constraints of a routine brain study. Normal visualized paranasal sinuses. Normal calvarium and skull base. Normal visualized soft tissue structures. Normal visualized upper cervical spine. MRI/Brain without Contrast IMPRESSION: Normal unenhanced MRI of the brain. Electronically Signed: Rex Montana MD at 13:01 EDT , CC: Dr. Lucio Ayoub MD General Foundry Worker: Signed Normal [facility] SP/HP.Lars 11-14-2023 SP/HP.ROBB [facility] Speech Pathology [facility] [address] [place] [address]. [address] [place] [address] / REEVALUATION / MEDICARE RECERTIFICATION SPEECH THERAPY MR#: [id number] Acct: [id number] Name: JAEL HUGGINS Rep #: [id number] : 1945 78 From: Myra Lowery M.S., CCC-BUSINESS TEST ANALYST Referring Dr.: Dr. Lucio Ayoub MD Insurance: [employer] MEDICAID Visit History Visit Info Date of Eval: 10/12/23 Visit: 1 Patient's Approved Number of Visits: 10 Insurance Date Limit: 03/20/24 Paraffiner: LUNA Martinez Attending Doctor: Referring Doctor: Reason for Referral: MILD COGNITIVE IMPAIRMENT. RX HERE Medical Diagnosis: Mild Cognitive Impairment Previous speech therapy: Yes Results: FROM D/C SUMMARY ON TCU IN FEBRUARY 2022: SKILLED INTERVENTION SUMMARY: Patient participated in 2.[address] cognitive therapy targeting attn, memory and executive function to safely return home w/ least amount of supervision. Prior to hospitalization, patient was (I) w/ all functional and complex cognitive tasks . Patient has been instructed and trained on compensatory strategies to improve cognition specifically attn, memory and executive function. PATIENT RESPONSE TO TX: Patient w/ excellent participation and highly motivated to return home. Patient w/ somewhat improved awareness of cognitive deficits and need for additional assistance upon d/c home. Patient has poor attention to tasks requiring frequent redirection to task at hand - poor attn leads patient to make careless errors while completing therapeutic tasks such as writing checks, counting money , reading clocks, etc. Patient has made consistent progress towards retirement and short term goals, however will need continued speech therapy at next level of care. D/C RECOMMENDATIONS: In order to facilitate return to prior level of living, patient requires continued ST services at next level of care in order to enhance pt.' s quality of life by an improved ability to promote (I) at home, perform functional and complex daily living tasks and safely return home w/ least amount of supervision. Recommending family to take over complex cognitive tasks including medications and finances at this time d/t cognitive impairment. F/u w/ PCP for further cognitive assessment. Pt. and family agreeable to continued ST at next level of care. Other Relevant Medical History/Diagnoses/Uzair marcelo: JAEL HUGGINS is a 78 year old female [facility] following a recent dx of mild cognitive impairment. She is a current physical therapy patient rehabing balance and closed R hip fracture from January 2022. Physical therapy referred to speech therapy d/t concerns with Pt having difficulty expressing herself. Jael endorses this and states that ever since her surgery she has felt difficulties with word finding. She states she doesn't feel it is completely memory related. States that it is difficult for her to find the words to relay a memory. Following her hip surgery in January 2022, she participated in 2.5 weeks of speech therapy on the Transitional Care Unit at [facility]. At the time of her d/c it was recommended that she participate in further outpatient speech therapy to address cognitive communication. Pt stating feeling like she didn't need additional therapy at that time but does now. Medications related to this diagnosis: Current Medications include: Levothyroxine Sodium (75MCG) for 1 tablet every day, Pantoprazole Sodium (40 MG) delay release for 1 tablet every day, and most recently prescribed on 09/29/23 Memantine HCl (10 MG) for 1/2 tab daily x7 days, then 1/2 tab bid x7 days, then 1/2 tab AM and 1/2 tab PM x7 days, then 1 tab bid continuously Smoking Status: Never smoker Diagnosis Diagnosis: Moderate Cognitive Communication Disorder; Aphasia Pain Is pain an issue with your current prescribed condition?: No Personal Preferred language: Fijian Patient Allergies Allergies Allergies: Allergies No Known Allergies Allergy (Verified 06/02/23 08:55) Previous/Current Goals Goals 1-5 Previous Goal #1: Jale will participate in continued cognitive communication assessment to determine cognitive and expressive language areas of need. Goal 1 Status: SEE BELOW FOR A VARIETY OF ADDITIONAL TESTING AND THERAPY TASKS THAT DESCRIBE PT'S AREAS OF IMPROVEMENT: - Pt read the Grandfather passage aloud with 14 errors throughout the passage. - Pt also completed the MARLA (self administered gerocognitive exam). Pt presenting with severe dysgraphia, dyscalculia, implementing problem solving strategies just discussed with ST re: the short and long hands of a clock, having enough space for the numbers in her clock drawing, generating 12 animals (8/12 with 6 of them spelled incorrectly), and connecting 6/11 in a trail making task improving (more content not included)... Normal [facility] Re-Evaluation - PT (1)on Re-Evaluation - PT (1) [facility] Physical Therapy [facility] [place] [address] / REEVALUATION / MEDICARE RECERTIFICATION PHYSICAL THERAPY MR#: [id number] Acct: [id number] Name: JAEL HUGGINS Rep #: [id number] : 1945 78 From: Perla Silver MPT Referring Dr.: Dr. Lucio Ayoub MD Status:REG RCR Insurance: [employer] MEDICAID Re-Evaluation Intro: Dr. Lucio Ayoub MD, It has been my pleasure to treat JAEL HUGGINS over the last 27 visits for closed R hip fracture 1 year or so ago and sciatica. Please see the progress note below for an update on the physical therapy plan of care! Subjective Subjective: Pt had speech prior to PT. Pt is doing much better. She thinks that her speech is coming along. She feels that her walking is coming along. She is driving up to PT/Speech. She wants to continue but be seen twice a week now instead of three times. Objective Objective/Function: R hip flex 9.5 and L 16.5 R knee ext 19.9 and L 22.7 R knee flex 12.9 and L 16.9 R DF 21 and L DF 22.7 Supine hip Abd R 15.2 and L 18 Standing hip flexion 2 X 10 (fatigues after about 6 reps) Gait: walks with rolling walker with more fluid gait and not dragging her R leg anymore. She still walks with decrease stance time on the R. Plan Plan Plan: 2X/ week for 4 weeks for strength of R hip and knee, AROM of the R knee, balance, and gait mechancis Balance/Gait/Function al tests Balance/Special Test Scores Lower Extremity Functional Score: 44 Goals Goals Goal 1:: I HEP Goal Time Frame: 6-8 Weeks Goal Progress: Goal Met Goal 2:: Increase LE strength (at the time of the eval: LE MMT: R hip flex 6 and L 13.3 R knee ext 19.9 and L 22.7 R knee flex 8.8 and L 14 R DF 16.9 and L DF 22.7 Supine hip Abd R 13.7 and L 18). Goal Time Frame: 6-8 Weeks Goal Progress: Progressing Goal 3:: Be able to walk with a straight cane with CGA Goal Time Frame: 6-8 Weeks Goal Progress: Not Progressing Goal 4:: Be able to stand and hip flex 2 X 10 without any pain or weakness Goal Time Frame: 6-8 Weeks Goal Progress: Progressing Goal 5:: Be able to walk with equal stance time on B legs and continuous stride with least restrictive device Goal Time Frame: 6-8 Weeks Goal Progress: Progressing Anticipated Interventions Anticipated Interventions Patient/Client Instruction: Educate patient on: Condition and Plan of Care For the Purpose of:: To decrease pain, To increase ROM, To improve nutrient delivery to tissue, To improve muscle performance and motor function, To improve ability to perform ADL's, To increase tolerance to activity/condition/po sition, To improve performance and independence with ADL's, To decrease level of supervision to perform tasks, To improve gait and locomotor functions, To improve health of tissue, To decrease soft tissue restriction, To increase flexibility/ROM, To improve balance and To improve safety with gait Therapeutic Exercise to Include: Strength training, Endurance training, Balance training, Postural training, Flexibilty training, Gait and locomotor training, Neuromotor development, Active ROM and Dynamic Lumbar Stabilization For the Purpose of:: To decrease pain, To increase ROM, To improve nutrient delivery to tissue, To increase oxygenation perfusion, To improve muscle performance and motor function, To improve ability to perform ADL's, To increase tolerance to activity/condition/po sition, To improve performance and independence with ADL's, To decrease level of supervision to perform tasks, To improve ability of physical actions for home/community/work/l eisure, To improve gait and locomotor functions, To improve health of tissue, To decrease soft tissue restriction, To increase flexibility/ROM, To improve endurance, To improve balance and To improve safety with gait Functional Training to Include: Gait training For the Purpose of:: To improve gait and locomotor functions and To improve safety with gait Manual Therapy Techniques to Include: Passive ROM and Soft tissue mobilization For the Purpose of:: To decrease pain, To increase ROM, To improve nutrient delivery to tissue, To improve muscle performance and motor function, To improve ability to perform ADL's, To increase tolerance to activity/condition/po sition, To improve gait and locomotor functions, To improve health of tissue, To decrease soft tissue restriction, To increase flexibility/ROM, To improve balance and To improve safety with gait Re-Evaluation Ending Re-evaluation ending: Please do not hesitate to contact me at [phone] by phone or if you have questions or concerns regarding this new plan of care! Sincerely, Perla Silver, MPT 10/21/23 1359 CC: Dr. Lucio Ayoub MD Signed For Medicare only, (more content not included)... Normal [facility] SP/HP.SP.Yaakov 10-12-2023 SP/HP.SP.EV [facility] Speech Pathology [facility] [address] [place] [address] / REHABILITATION SERVICES INITIAL EVALUATION MR#: [id number] Acct: [id number] Name: JAEL HUGGINS Rep #: [id number] : 1945 78 From: Myra Lowery M.S., [facility]-BUSINESS TEST ANALYST Referring Dr.: Dr. Lucio Ayoub MD Status: REG R Insurance: [employer] MEDICAID Visit History Visit Info Date of Eval: 10/12/23 Visit: 1 Patient's Approved Number of Visits: 10 Insurance Date Limit: 03/20/24 Paraffiner: LUNA Martinez Attending Doctor: Referring Doctor: Reason for Referral: MILD COGNITIVE IMPAIRMENT. RX HERE Medical Diagnosis: Mild Cognitive Impairment Previous speech therapy: Yes Results: FROM D/C SUMMARY ON TCU IN FEBRUARY 2022: SKILLED INTERVENTION SUMMARY: Patient participated in 2.[address] cognitive therapy targeting attn, memory and executive function to safely return home w/ least amount of supervision. Prior to hospitalization, patient was (I) w/ all functional and complex cognitive tasks . Patient has been instructed and trained on compensatory strategies to improve cognition specifically attn, memory and executive function. PATIENT RESPONSE TO TX: Patient w/ excellent participation and highly motivated to return home. Patient w/ somewhat improved awareness of cognitive deficits and need for additional assistance upon d/c home. Patient has poor attention to tasks requiring frequent redirection to task at hand - poor attn leads patient to make careless errors while completing therapeutic tasks such as writing checks, counting money , reading clocks, etc. Patient has made consistent progress towards retirement and short term goals, however will need continued speech therapy at next level of care. D/C RECOMMENDATIONS: In order to facilitate return to prior level of living, patient requires continued ST services at next level of care in order to enhance pt.' s quality of life by an improved ability to promote (I) at home, perform functional and complex daily living tasks and safely return home w/ least amount of supervision. Recommending family to take over complex cognitive tasks including medications and finances at this time d/t cognitive impairment. F/u w/ PCP for further cognitive assessment. Pt. and family agreeable to continued ST at next level of care. Other Relevant Medical History/Diagnoses/Uzair marcelo: JAEL HUGGINS is a 78 year old female who presents to [facility] following a recent dx of mild cognitive impairment. She is a current physical therapy patient rehabing balance and closed R hip fracture from January 2022. Physical therapy referred to speech therapy d/t concerns with Pt having difficulty expressing herself. Jael endorses this and states that ever since her surgery she has felt difficulties with word finding. She states she doesn't feel it is completely memory related. States that it is difficult for her to find the words to relay a memory. Following her hip surgery in January 2022, she participated in 2.5 weeks of speech therapy on the Transitional Care Unit at [facility]. At the time of her d/c it was recommended that she participate in further outpatient speech therapy to address cognitive communication. Pt stating feeling like she didn't need additional therapy at that time but does now. Medications related to this diagnosis: Current Medications include: Levothyroxine Sodium (75MCG) for 1 tablet every day, Pantoprazole Sodium (40 MG) delay release for 1 tablet every day, and most recently prescribed on 09/29/23 Memantine HCl (10 MG) for 1/2 tab daily x7 days, then 1/2 tab bid x7 days, then 1/2 tab AM and 1/2 tab PM x7 days, then 1 tab bid continuously Smoking Status: Never smoker Diagnosis Diagnosis: Moderate Cognitive Communication Disorder Pain Is pain an issue with your current prescribed condition?: No Personal Preferred language: Fijian Patient Allergies Allergies Allergies: Allergies No Known Allergies Allergy (Verified 06/02/23 08:55) Objective Cog/Ling/Com Answer Yes/No Questions Simple: WNL Complex: Mild Naming Naming in categories: Moderate Conversational Tasks Conversational Tasks: Moderate Comments Comments: - Jael was tasked with with writing her name, address, and birthday -- spelling was all correct for this personal information, however hand writing legibility presents a mild deficit. Pt stating she has noticed it getting worse. - DIVERGENT NAMING: Jael was then tasked to write down 10 fruits. Pt requiring 20 min. to identify 10 fruits. Additionally, 9 of the 10 fruits she identified were spelled incorrectly (e.g., pare for pear, watmrel for watermelon, cornpope for cantaloupe, paineopar for pineapple). Observations of Pt during this task suggest this task for laborious for her to comp (more content not included)... Normal [facility] Re-Evaluation - PT (1)on Re-Evaluation - PT (1) [facility] Physical Therapy [facility] [address] [place] [address] [address] [place] [address] / REEVALUATION / MEDICARE RECERTIFICATION PHYSICAL THERAPY MR#: [id number] Acct: [id number] Name: JAEL HUGGINS Rep #: [id number] : 1945 78 From: Perla Silver MPT Referring Dr.: Dr. Lucio Ayoub MD Status:REG RCR Insurance: [employer] MEDICARE MEDICAID [place] Re-Evaluation Intro: Dr. Lucio Ayoub MD, It has been my pleasure to treat JAEL HUGGINS over the last 22 visits for closed R hip fracture 1 year or so ago and sciatica. Please see the progress note below for an update on the physical therapy plan of care! Subjective Subjective: Pt reports that Dr want continued PT and Speech. She has not taken a pain pill today. She thinks that she is better. Pt does not like walking with a cane. Objective Objective/Function: LE MMT: R hip flex 8.3 and L 13.3 R knee ext 16.7 and L 22.7 R knee flex 9.3and L 14 R DF 17.6and L DF 22.7 Supine hip Abd R 13.7 and L 18 Gait: pt is able to walk with more equal stance time and step length with a walker with less verbal cues...more verbal cues needed when distracted. Standing hip flexion Plan Plan Plan: 3X/ week for additional 4 weeks for R hip PROM/AAROM (SKC), trunk flexion stretches, LE strength including R hip and knee, gait training, functional training, with HEP and balance Balance/Gait/Function al tests Balance/Special Test Scores Lower Extremity Functional Score: 33 Goals Goals Goal 1:: I HEP Goal Time Frame: 6-8 Weeks Goal Progress: Goal Met Goal 2:: Increase LE strength (at the time of the eval: LE MMT: R hip flex 6 and L 13.3 R knee ext 19.9 and L 22.7 R knee flex 8.8 and L 14 R DF 16.9 and L DF 22.7 Supine hip Abd R 13.7 and L 18). Goal Time Frame: 6-8 Weeks Goal 3:: Be able to walk with a straight cane with CGA Goal Time Frame: 6-8 Weeks Goal 4:: Be able to stand and hip flex 2 X 10 without any pain or weakness Goal Time Frame: 6-8 Weeks Goal 5:: Be able to walk with equal stance time on B legs and continuous stride with least restrictive device Goal Time Frame: 6-8 Weeks Goal Progress: Progressing Anticipated Interventions Anticipated Interventions Patient/Client Instruction: Educate patient on: Condition and Plan of Care For the Purpose of:: To decrease pain, To increase ROM, To improve nutrient delivery to tissue, To improve muscle performance and motor function, To improve ability to perform ADL's, To increase tolerance to activity/condition/po sition, To improve performance and independence with ADL's, To decrease level of supervision to perform tasks, To improve gait and locomotor functions, To improve health of tissue, To decrease soft tissue restriction, To increase flexibility/ROM, To improve balance and To improve safety with gait Therapeutic Exercise to Include: Strength training, Endurance training, Balance training, Postural training, Flexibilty training, Gait and locomotor training, Neuromotor development, Active ROM and Dynamic Lumbar Stabilization For the Purpose of:: To decrease pain, To increase ROM, To improve nutrient delivery to tissue, To increase oxygenation perfusion, To improve muscle performance and motor function, To improve ability to perform ADL's, To increase tolerance to activity/condition/po sition, To improve performance and independence with ADL's, To decrease level of supervision to perform tasks, To improve ability of physical actions for home/community/work/l eisure, To improve gait and locomotor functions, To improve health of tissue, To decrease soft tissue restriction, To increase flexibility/ROM, To improve endurance, To improve balance and To improve safety with gait Functional Training to Include: Gait training For the Purpose of:: To improve gait and locomotor functions and To improve safety with gait Manual Therapy Techniques to Include: Passive ROM and Soft tissue mobilization For the Purpose of:: To decrease pain, To increase ROM, To improve nutrient delivery to tissue, To improve muscle performance and motor function, To improve ability to perform ADL's, To increase tolerance to activity/condition/po sition, To improve gait and locomotor functions, To improve health of tissue, To decrease soft tissue restriction, To increase flexibility/ROM, To improve balance and To improve safety with gait Re-Evaluation Ending Re-evaluation ending: Please do not hesitate to contact me at [phone] by phone or if you have questions or concerns regarding this new plan of care! Sincerely, SHLOMO Urena 10/03/23 1458 CC: Dr. Lucio Ayoub MD Signed For Medicare only, by signing this I certify the plan of care. Physicians Sign (more content not included)... Normal [facility] Re-Evaluation - PT (1)on Re-Evaluation - PT (1) [facility] Physical Therapy [facility] [address] [place] [address] / REEVALUATION / MEDICARE RECERTIFICATION PHYSICAL THERAPY MR#: [id number] Acct: [id number] Name: JAEL HUGGINS Rep #: [id number] : 1945 77 From: Perla KEENAN Referring Dr.: Dr. Lucio Ayoub MD Status:REG RCR Insurance: MEDICARE PART A B MEDICAID [place] Re-Evaluation Intro: Dr. Lucio Ayoub MD, It has been my pleasure to treat JAEL HUGGINS over the last 9 visits for closed R hip fracture 1 year or so ago and sciatica. Please see the progress note below for an update on the physical therapy plan of care! Subjective Subjective: Pt reports that he pain is better. Objective Objective/Function: Pt is walking with increase stance time on the R LE but it is not equal stance time Pt needed much encouragement to move that R leg into knee and hip flex/ext Plan Plan Plan: 3X/ week for 8 weeks for R hip PROM/AAROM (SKC), trunk flexion stretches, LE strength including R hip and knee, gait training, functional training, with HEP and balance Balance/Gait/Function al tests Balance/Special Test Scores Lower Extremity Functional Score: 11 Goals Goals Goal 1:: I HEP Goal Time Frame: 6-8 Weeks Goal 2:: Increase LE strength (at the time of the eval: LE MMT: R hip flex 6 and L 13.3 R knee ext 19.9 and L 22.7 R knee flex 8.8 and L 14 R DF 16.9 and L DF 22.7 Supine hip Abd R 13.7 and L 18). Goal Time Frame: 6-8 Weeks Goal 3:: Be able to walk with a straight cane with CGA Goal Time Frame: 6-8 Weeks Goal 4:: Be able to stand and hip flex 2 X 10 without any pain or weakness Goal Time Frame: 6-8 Weeks Goal 5:: Be able to walk with equal stance time on B legs and continuous stride with least restrictive device Goal Time Frame: 6-8 Weeks Goal Progress: Progressing Anticipated Interventions Anticipated Interventions Patient/Client Instruction: Educate patient on: Condition and Plan of Care For the Purpose of:: To decrease pain, To increase ROM, To improve nutrient delivery to tissue, To improve muscle performance and motor function, To improve ability to perform ADL's, To increase tolerance to activity/condition/po sition, To improve performance and independence with ADL's, To decrease level of supervision to perform tasks, To improve gait and locomotor functions, To improve health of tissue, To decrease soft tissue restriction, To increase flexibility/ROM, To improve balance and To improve safety with gait Therapeutic Exercise to Include: Strength training, Endurance training, Balance training, Postural training, Flexibilty training, Gait and locomotor training, Neuromotor development, Active ROM and Dynamic Lumbar Stabilization For the Purpose of:: To decrease pain, To increase ROM, To improve nutrient delivery to tissue, To increase oxygenation perfusion, To improve muscle performance and motor function, To improve ability to perform ADL's, To increase tolerance to activity/condition/po sition, To improve performance and independence with ADL's, To decrease level of supervision to perform tasks, To improve ability of physical actions for home/community/work/l eisure, To improve gait and locomotor functions, To improve health of tissue, To decrease soft tissue restriction, To increase flexibility/ROM, To improve endurance, To improve balance and To improve safety with gait Functional Training to Include: Gait training For the Purpose of:: To improve gait and locomotor functions and To improve safety with gait Manual Therapy Techniques to Include: Passive ROM and Soft tissue mobilization For the Purpose of:: To decrease pain, To increase ROM, To improve nutrient delivery to tissue, To improve muscle performance and motor function, To improve ability to perform ADL's, To increase tolerance to activity/condition/po sition, To improve gait and locomotor functions, To improve health of tissue, To decrease soft tissue restriction, To increase flexibility/ROM, To improve balance and To improve safety with gait Re-Evaluation Ending Re-evaluation ending: Please do not hesitate to contact me at [phone] by phone or if you have questions or concerns regarding this new plan of care! Sincerely, Perla Silver, SHLOMO 08/31/23 1508 CC: Dr. Lucio Ayoub MD Signed For Medicare only, by signing this I certify the plan of care. Physicians Signature Date Normal [facility] Emergency Department Summary on 08-22-2023 Emergency Department Summary [facility] Medical Records Department [address] [place] [address] Emergency Department Summary 08/22/23 MR#: [id number] Acct: [id number] Name: JAEL HUGGINS Rep #: [id number] : 1945 77 From: Tommy Huff DO PCP: Dr. Lucio Ayoub MD Status:DEP ER Location: ED HPI History of Present Illness Chief Complaint: Lower Extremity Injury Narrative Narrative: Patient presenting due to right sided hip pain that she has had since this afternoon. She reports that she was out on her patio fixing a rug when she tripped and fell onto her right side. She did not hit her head and denies any LOC. She was unable to stand up due to pain in her right hip. EMS was called and brought her in for evaluation. She does report a history of a right-sided hip replacement. [facility] Medical History Contusion of right knee Strain of right knee Hemorrhoids Family history of breast cancer Thyroid disease Breast mass, right Abnormal mammogram of right breast Home Medications ???Medication ???Instructions ???Recorded ???Last Taken ???Type levothyroxine 75 mcg tablet 75 mcg PO DAILY THYROID 03/11/20 Unknown History ascorbic acid (vitamin C) 500 mg 500 mg PO DAILY@0800 30 days #30 02/17/22 Unknown Rx tablet tabs ferrous sulfate 325 mg (65 mg 325 mg PO BID@1245,1745 30 days 02/17/22 Unknown Rx iron) tablet (FeroSul) #60 tabs polyethylene glycol 3350 17 gram 17 g PO DAILY@0800 30 days #30 ea 02/17/22 Unknown Rx oral powder packet sennosides 8.6 mg-docusate sodium 2 tab PO BID@0800,1800 30 days 02/17/22 Unknown Rx 50 mg tablet (Stool #120 tabs Softener-Stimulant Laxative) Allergy/AdvReac Type Severity Reaction Status Date / Time No Known Allergies Allergy Verified 06/02/23 08:55 Family History Mother Breast cancer Sister Breast cancer Sister Lymphoma Surgical History History of right breast biopsy ( 03/2020) History of partial hysterectomy Social History household members: none Smoking Status: Former smoker second hand exposure: No alcohol intake: never substance use type: does not use ROS ROS ED Constitutional Constitutional ED: Denies chills or fever(s) Cardiovascular Cardiovascular: Denies chest pain Respiratory/Chest Respiratory/Chest: Denies dyspnea Gastrointestinal Gastrointestinal: Denies abdominal pain Musculoskeletal Musculoskeletal: Reports arthralgias Integumentary Denies Abrasions Neurologic Neurologic: Denies paresthesias or weakness EXAM Physical Exam Const Vital Signs: 08/22/23 13:31 08/22/23 15:26 Temperature 97.9 F 98.2 F Temperature Source Temporal Pulse Rate 102 H 76 Respiratory Rate 18 14 Blood Pressure 153/76 H 154/82 H Blood Pressure Mean 101 106 Pulse Ox 94 97 Oxygen Delivery Method Room Air Positive well nourished, well developed and no apparent distress General Appearance ED: well developed HEENT Reports normocephalic and head/scalp atraumatic Mouth ED: Yes moist mucous membranes normal Eyes PERRL and EOMs intact bilaterally Neck full ROM and supple Chest Wall inspection of chest normal Resp normal respiratory effort and clear to auscultation bilaterally Cardio regular rate and regular rhythm GI soft to palpation, non-tender, non-distended and no masses Back/Spine normal ROM and normal to inspection Extremity normal to inspection and full ROM Extremity Narrative: Pain to palpation to the greater trochanter, negative logroll, no visible deformity. Right DP pulse 2+, good capillary refill, sensation intact. Neuro oriented x3, CN's II-XII intact bilaterally, moves all extremities, no focal motor deficits and no sensory deficits noted Sensorium / Orientation: awake and alert Psych mental status grossly normal and thought process normal Skin no rashes or lesions noted and no wounds Physical Exam Const Vital Signs: 08/22/23 13:31 08/22/23 15:26 Temperature 97.9 F 98.2 F Temperature Source Temporal Pulse Rate 102 H 76 Respiratory Rate 18 14 Blood Pressure 153/76 H 154/82 H Blood Pressure Mean 101 106 Pulse Ox 94 97 Oxygen Delivery Method Room Air MDM MDM MDM Narrative Medical decision making narrative: Patient presenting with right hip pain after a mechanical fall that occurred this afternoon. No visible deformity to the hip, x-ray will be obtained to rule out fracture. This is negative for any acute findings. She declined any analgesia here. She was ambulated and did well. She feels stable for discharge home, I have enc (more content not included)... Normal [facility] HIP, UNI W/ Pelvis 2-3 Views on 08-22-2023 HIP, UNI W/ Pelvis 2-3 Views [facility] Imaging Services [address] [place] [address] HIP, UNI W/ Pelvis 2-3 Views MR#: [id number] Acct: [id number] Name: JAEL HUGGINS Rep #: [id number] : 1945 F 77 From: John guthrie MD PCP: Dr. Lucio Ayoub MD Status: REG ER Study: HIP, UNI W/ Pelvis 2-3 Views Date of Exam: 06/11 Exam# [id number] Ordering Dr: Britt Austin [id number] STUDY: X-RAY - PELVIS AND RIGHT HIP REASON FOR EXAM: Female, 77 years old. Right hip pain following a fall. TECHNIQUE: 4 views of the pelvis and hip. COMPARISON: Comparison is made with prior study dated July 14, 2023. FINDINGS: There is a non-specific bowel gas pattern. Normal visualized soft tissue structures. Normal bilateral iliac wings, sacroiliac joints and visualized sacrum. Normal bilateral superior and inferior pubic rami. Normal pubic symphysis. Normal bilateral ischial tuberosities. Once again, the patient is status post open reduction and internal fixation of the right intertrochanteric fracture using a compression screw and intramedullary prasanth device. The fracture is healed. RAD/HIP, UNI W/ Pelvis 2-3 Views IMPRESSION: No acute abnormality is seen. Electronically Signed: John Winn MD at 14:45 EDT , CC: Dr. Lucio Ayoub MD; MARGARITA Rodriguez [employer] Worker: Signed Normal [facility] Laboratory - Microbiology an d Antimicrobial susceptibilityOrdered By: Lucio Ayoub on 06-29-2023 SARS-CoV-2 (COVID-19) RNA [place]+probe Ql (Unsp spec) [facility] Serum or plasma thyroid stim ulating hormone (TSH) measurement (units/volume)Ordered By: Lucio Ayoub on 06-09-2023 TSH Qn 3.69 uIU/mL 0.358-3.74 [facility] Absolute lymphocyte countOrd ered By: Lucio Ayoub on 04-25-2023 Lymphocytes Auto (Unsp spec) [#/Vol] 1.95 10*3/uL 0.83-4.51 [facility] Automated lymphocyte count a s percentage of total leukocytesOrdered By: Lucio Ayoub on 04-25-2023 Lymphocytes/100 WBC Auto (Unsp spec) 31.4 % 19-41 [facility] Basophil percentageOrdered B y: Lucio Ayoub on 04-25-2023 Basophils/100 WBC (Bld) 1.0 % 0-1 [facility] Bilirubin [Mass/Vol] 0.60 mg/dL 0.20-1.00 [facility] Comment on above: For patients on eltr ombopag therapy, use of Dimension [place] TBIL is not recommended. Chloride [Moles/Vol] 108 mmol/L 98-107 [facility] Eosinophils/100 WBC (Bld) 1.6 % 0-5 [facility] Glucose [Mass/Vol] 101 mg/dL 74-106 [facility] Comment on above: Fasting Glucose resu lt from 100 to 125 mg/dL suggests IMPAIRED HOMEOSTASIS per A.D.A. criteria. Hemoglobin (Bld) [Mass/Vol] 13.8 g/dL 12.0-15.0 [facility] Monocytes/100 WBC (Bld) 6.1 % 0-10 [facility] Neutrophils (Bld) [#/Vol] 3.7 10*3/uL 2.0-7.7 [facility] Neutrophils/100 WBC (Bld) 59.7 % 47-70 [facility] Potassium [Moles/Vol] 3.9 mmol/L 3.5-5.1 [facility] Protein [Mass/Vol] 8.3 g/dL 6.4-8.2 [facility] Sodium [Moles/Vol] 140 mmol/L 136-145 [facility] WBC (Bld) [#/Vol] 6.2 10*3/uL 4.4-11.0 [facility] Determination of erythrocyte mean corpuscular volume (MCV)Ordered By: Lucio Ayoub on 04-25-2023 MCV (RBC) [Entitic vol] 91.4 fL 81-99 [facility] Erythrocyte distribution wid th ratioOrdered By: Lucio Ayoub on 04-25-2023 Erythrocyte distribution width (RBC) [Ratio] 12.9 % 11.6-14.6 [facility] Erythrocyte distribution wid th standard deviationOrdered By: Lucio Ayoub on 04-25-2023 Erythrocyte distribution width (RBC) [Entitic vol] 42.9 fL 35.1-43.9 [facility] Hematocrit Auto (Bld) [Volum e fraction]Ordered By: Lucio Ayoub on 04-25-2023 Hematocrit (Bld) [Volume fraction] 42.5 % 37-47 [facility] Immature granulocytes/100 WB C Auto (Bld)Ordered By: Lucio Ayoub 04-25-2023 Immature granulocytes/100 WBC (Bld) 0.200 % 0.0-0.9 [facility] Comment on above: IG% - Immature Granu locytes (promyelocytes, myelocytes and metamyelocytes) > 1% indicates that a LEFT SHIFT is Present. Laboratory - Chemistry and C hemistry - challengeOrdered By: Lucio Ayoub on 04-25-2023 Albumin/Globulin [Mass ratio] 0.9 {ratio} 0.9-2.4 [facility] ALP [Catalytic activity/Vol] 146 U/L 45-117 [facility] ALT [Catalytic activity/Vol] 40 U/L 13-56 [facility] CO2 [Moles/Vol] 23.0 mmol/L 21.0-32.0 [facility] Globulin (S) [Mass/Vol] 4.4 g/dL 2.2-4.2 [facility] Urea nitrogen/Creatinine [Mass ratio] 16.4 mg/mg 10-20 [facility] Laboratory - Hematology and Cell countsOrdered By: Lucio Ayoub on 04-25-2023 MCH (RBC) [Entitic mass] 29.7 pg 27.0-32.0 [facility] MCHC (RBC) [Mass/Vol] 32.5 g/dL 32-36 [facility] Nucleated RBC/100 WBC (Bld) [Ratio] 0 % 0-5 [facility] Platelets (Bld) [#/Vol] 328 10*3/uL 150-450 [facility] No Panel InformationOrdered By: Lucio Ayoub on 04-25-2023 Estimated GFR (MDRD) Amer 83 mL/min >60 [facility] Comment on above: GFR Calc Estimated GFR (MDRD) Non-Af Amer 69 mL/min >60 [facility] Comment on above: Non- GFR Calc Vitamin D 25-Hydroxy 27.8 ng/mL [facility] Comment on above: Vitamin D 25(OH) Sta tus Range Deficiency <20 ng/mL (50nmol/L) Insufficiency 20 - 30 ng/mL (50 - 75 nmol/L) Sufficiency 30 - 100 ng/mL (75 - 250 nmol/L) Toxicity >100 ng/mL (>250 nmol/L) Platelet mean volume Abraham-Ec ker (Bld) [Entitic vol]Ordered By: Lucio Ayoub on 04-25-2023 Platelet mean volume (Bld) [Entitic vol] 10.2 fL 6.2-12.0 [facility] RBC Auto (Bld) [#/Vol]Ordere d By: Lucio Ayoub on 04-25-2023 RBC (Bld) [#/Vol] 4.65 10*6/uL 4.2-5.4 [facility] Serum or plasma calcium guy urement (mass/volume)Ordered By: Lucio Ayoub on 04-25-2023 Calcium [Mass/Vol] 9.8 mg/dL 8.5-10.1 [facility] Serum or plasma creatinine m easurement (mass/volume)Ordered By: Lucio Ayoub on 04-25-2023 Creatinine [Mass/Vol] 0.85 mg/dL 0.55-1.02 [facility] Comment on above: The validity of the calculated GFR & GFRAA in patients over 70 years has not been determined. Clinical correlation is essential. Serum or plasma thyroid stim ulating hormone (TSH) measurement (units/volume)Ordered By: Lucio Ayoub on 04-25-2023 TSH Qn 31.60 uIU/mL 0.358-3.74 [facility] Serum or plasma urea nitroge n measurement (mass/volume)Ordered By: Lucio Ayoub on 04-25-2023 Urea nitrogen [Mass/Vol] 14 mg/dL 7-18 [facility] Thin prep Papanicolaou smear with manual screeningOrdered By: Lucio Ayoub on 04-25-2023 Thin prep Papanicolaou smear with manual screening 3.9 g/dL 3.2-5.0 [facility] Thin prep Papanicolaou smear with manual screening 14 U/L 15-37 [facility] Thin prep Papanicolaou smear with manual screening 9 5-15 [facility] Absolute lymphocyte countOrd ered By: Dr. Ayoub on 04-19-2022 Lymphocytes Auto (Unsp spec) [#/Vol] 2.08 10*3/uL 0.83-4.51 [facility] Basophil percentageOrdered B y: Dr. Ayoub on 04-19-2022 Basophils/100 WBC (Bld) 0.4 % 0-1 [facility] Bilirubin [Mass/Vol] 0.30 mg/dL 0.20-1.00 [facility] Comment on above: For patients on eltr ombopag therapy, use of Dimension [place] TBIL is not recommended. Chloride [Moles/Vol] 107 mmol/L 98-107 [facility] Eosinophils/100 WBC (Bld) 1.9 % 0-5 [facility] Glucose [Mass/Vol] 92 mg/dL 74-106 [facility] Neutrophils (Bld) [#/Vol] 4.7 10*3/uL 2.0-7.7 [facility] Neutrophils/100 WBC (Bld) 62.0 % 47-70 [facility] Potassium [Moles/Vol] 3.7 mmol/L 3.5-5.1 [facility] Protein [Mass/Vol] 7.3 g/dL 6.4-8.2 [facility] Sodium [Moles/Vol] 141 mmol/L 136-145 [facility] WBC (Bld) [#/Vol] 7.5 10*3/uL 4.4-11.0 [facility] Blood erythrocytes count (nu mber/volume)Ordered By: Dr. Ayoub on 04-19-2022 RBC (Bld) [#/Vol] 4.56 10*6/uL 4.2-5.4 [facility] Blood hemoglobin measurement (mass/volume)Ordered By: Dr. Ayoub on 04-19-2022 Hemoglobin (Bld) [Mass/Vol] 13.4 g/dL 12.0-15.0 [facility] Blood lymphocytes/100 leukoc ytesOrdered By: Dr. Ayoub on 04-19-2022 Lymphocytes/100 WBC (Bld) 27.7 % 19-41 [facility] Blood monocytes/100 leukocyt esOrdered By: Dr. Ayoub on 04-19-2022 Monocytes/100 WBC (Bld) 7.7 % 0-10 [facility] Blood platelet mean volumeOr dered By: Dr. Ayoub on 04-19-2022 Platelet mean volume (Bld) [Entitic vol] 10.2 fL 6.2-12.0 [facility] Determination of erythrocyte mean corpuscular volume (MCV)Ordered By: Dr. Ayoub on 04-19-2022 MCV (RBC) [Entitic vol] 92.1 fL 81-99 [facility] Hematocrit Auto (Bld) [Volum e fraction]Ordered By: Dr. Ayoub on 04-19-2022 Hematocrit (Bld) [Volume fraction] 42.0 % 37-47 [facility] Laboratory - Chemistry and C hemistry - challengeOrdered By: Dr. Ayoub on 04-19-2022 ALP [Catalytic activity/Vol] 221 U/L 45-117 [facility] ALT [Catalytic activity/Vol] 48 U/L 13-56 [facility] CO2 [Moles/Vol] 23.0 mmol/L 21.0-32.0 [facility] Globulin (S) [Mass/Vol] 3.9 g/dL 2.2-4.2 [facility] Urea nitrogen/Creatinine [Mass ratio] 18.1 mg/mg 10-20 [facility] Laboratory - Hematology and Cell countsOrdered By: Dr. Ayoub on 04-19-2022 Erythrocyte distribution width (RBC) [Entitic vol] 44.7 fL 35.1-43.9 [facility] Erythrocyte distribution width (RBC) [Ratio] 13.2 % 11.6-14.6 [facility] Immature granulocytes/100 WBC (Bld) 0.300 % 0.0-0.9 [facility] Comment on above: IG% - Immature Granu locytes (promyelocytes, myelocytes and metamyelocytes) > 1% indicates that a LEFT SHIFT is Present. MCH (RBC) [Entitic mass] 29.4 pg 27.0-32.0 [facility] Nucleated RBC/100 WBC (Bld) [Ratio] 0 % 0-5 [facility] MCHC Auto (RBC) [Mass/Vol]Or dered By: Dr. Ayoub on 04-19-2022 MCHC (RBC) [Mass/Vol] 31.9 g/dL 32-36 [facility] No Panel InformationOrdered By: Dr. Ayoub on 04-19-2022 Estimated GFR (MDRD) Amer 102 mL/min >60 [facility] Comment on above: GFR Calc Estimated GFR (MDRD) Non-Af Amer 84 mL/min >60 [facility] Comment on above: Non- GFR Calc Thyroid Stimulating Hormone (TSH) 0.24 uIU/mL 0.358-3.74 [facility] Vitamin D 25-Hydroxy 30.4 ng/mL [facility] Comment on above: Vitamin D 25(OH) Sta tus Range Deficiency <20 ng/mL (50nmol/L) Insufficiency 20 - 30 ng/mL (50 - 75 nmol/L) Sufficiency 30 - 100 ng/mL (75 - 250 nmol/L) Toxicity >100 ng/mL (>250 nmol/L) Platelets bldOrdered By: Dr. Ayoub on 04-19-2022 Platelets (Bld) [#/Vol] 338 10*3/uL 150-450 [facility] Serum or plasma albumin guy urement (mass/volume)Ordered By: Dr. Ayoub on 04-19-2022 Albumin [Mass/Vol] 3.4 g/dL 3.2-5.0 [facility] Serum or plasma albumin/glob ulin mass ratioOrdered By: Dr. Ayoub on 04-19-2022 Albumin/Globulin [Mass ratio] 0.9 {ratio} 0.9-2.4 [facility] Serum or plasma calcium guy urement (mass/volume)Ordered By: Dr. Ayoub on 04-19-2022 Calcium [Mass/Vol] 9.4 mg/dL 8.5-10.1 [facility] Serum or plasma creatinine m easurement (mass/volume)Ordered By: Dr. Ayoub on 04-19-2022 Creatinine [Mass/Vol] 0.72 mg/dL 0.55-1.02 [facility] Comment on above: The validity of the calculated GFR & GFRAA in patients over 70 years has not been determined. Clinical correlation is essential. Serum or plasma urea nitroge n measurement (mass/volume)Ordered By: Dr. Ayoub on 04-19-2022 Urea nitrogen [Mass/Vol] 13 mg/dL 7-18 [facility] Thin prep Papanicolaou smear with manual screeningOrdered By: Dr. Ayoub on 04-19-2022 Thin prep Papanicolaou smear with manual screening 29 U/L 15-37 [facility] Thin prep Papanicolaou smear with manual screening 11 5-15 [facility] Microbial respiratory cultur eOrdered By: Dr. Ayoub on 02-21-2022 Bacteria identified Respiratory culture Nom (Unsp spec) [facility] Gram stain for investigation of transfusion reactionOrdered By: Dr. Ayoub on 02-19-2022 Microscopic observation Gram stain Nom (Unsp spec) [facility] Absolute lymphocyte countOrd ered By: Dr. Ayoub on 02-16-2022 Lymphocytes Auto (Unsp spec) [#/Vol] 1.24 10*3/uL 0.83-4.51 [facility] Basophil percentageOrdered B y: Dr. Ayoub on 02-16-2022 Basophils/100 WBC (Bld) 1.1 % 0-1 [facility] Chloride [Moles/Vol] 108 mmol/L 98-107 [facility] Eosinophils/100 WBC (Bld) 3.8 % 0-5 [facility] Glucose [Mass/Vol] 94 mg/dL 74-106 [facility] Neutrophils (Bld) [#/Vol] 1.7 10*3/uL 2.0-7.7 [facility] Neutrophils/100 WBC (Bld) 47.3 % 47-70 [facility] Potassium [Moles/Vol] 3.6 mmol/L 3.5-5.1 [facility] Sodium [Moles/Vol] 139 mmol/L 136-145 [facility] WBC (Bld) [#/Vol] 3.7 10*3/uL 4.4-11.0 [facility] Blood erythrocytes count (nu mber/volume)Ordered By: Dr. Ayoub on 02-16-2022 RBC (Bld) [#/Vol] 3.49 10*6/uL 4.2-5.4 [facility] Blood hemoglobin measurement (mass/volume)Ordered By: Dr. Ayoub on 02-16-2022 Hemoglobin (Bld) [Mass/Vol] 10.5 g/dL 12.0-15.0 [facility] Blood lymphocytes/100 leukoc ytesOrdered By: Dr. Ayoub on 02-16-2022 Lymphocytes/100 WBC (Bld) 33.9 % 19-41 [facility] Blood monocytes/100 leukocyt esOrdered By: Dr. Ayoub on 02-16-2022 Monocytes/100 WBC (Bld) 13.4 % 0-10 [facility] Blood platelet mean volumeOr dered By: Dr. Ayoub on 02-16-2022 Platelet mean volume (Bld) [Entitic vol] 9.3 fL 6.2-12.0 [facility] Determination of erythrocyte mean corpuscular volume (MCV)Ordered By: Dr. Ayoub on 02-16-2022 MCV (RBC) [Entitic vol] 96.0 fL 81-99 [facility] Hematocrit Auto (Bld) [Volum e fraction]Ordered By: Dr. Ayoub on 02-16-2022 Hematocrit (Bld) [Volume fraction] 33.5 % 37-47 [facility] Laboratory - Chemistry and C hemistry - challengeOrdered By: Dr. Ayoub on 02-16-2022 CO2 [Moles/Vol] 26.0 mmol/L 21.0-32.0 [facility] Urea nitrogen/Creatinine [Mass ratio] 21.5 mg/mg 10-20 [facility] Laboratory - Hematology and Cell countsOrdered By: Dr. Ayoub on 02-16-2022 Erythrocyte distribution width (RBC) [Entitic vol] 55.8 fL 35.1-43.9 [facility] Erythrocyte distribution width (RBC) [Ratio] 15.8 % 11.6-14.6 [facility] Immature granulocytes/100 WBC (Bld) 0.500 % 0.0-0.9 [facility] Comment on above: IG% - Immature Granu locytes (promyelocytes, myelocytes and metamyelocytes) > 1% indicates that a LEFT SHIFT is Present. MCH (RBC) [Entitic mass] 30.1 pg 27.0-32.0 [facility] Nucleated RBC/100 WBC (Bld) [Ratio] 0 % 0-5 [facility] MCHC Auto (RBC) [Mass/Vol]Or dered By: Dr. Ayoub on 02-16-2022 MCHC (RBC) [Mass/Vol] 31.3 g/dL 32-36 [facility] No Panel InformationOrdered By: Dr. Ayoub on 02-16-2022 Estimated Creatinine Clearance Calc 44.80 ml/min [facility] Estimated GFR (MDRD) Amer 136 mL/min >60 [facility] Comment on above: GFR Calc Estimated GFR (MDRD) Non-Af Amer 112 mL/min >60 [facility] Comment on above: Non- GFR Calc Platelets bldOrdered By: Dr. Ayoub on 02-16-2022 Platelets (Bld) [#/Vol] 395 10*3/uL 150-450 [facility] Serum or plasma calcium guy urement (mass/volume)Ordered By: Dr. Ayoub on 02-16-2022 Calcium [Mass/Vol] 9.2 mg/dL 8.5-10.1 [facility] Serum or plasma creatinine m easurement (mass/volume)Ordered By: Dr. Ayoub on 02-16-2022 Creatinine [Mass/Vol] 0.56 mg/dL 0.55-1.02 [facility] Comment on above: The validity of the calculated GFR & GFRAA in patients over 70 years has not been determined. Clinical correlation is essential. Serum or plasma urea nitroge n measurement (mass/volume)Ordered By: Dr. Ayoub on 02-16-2022 Urea nitrogen [Mass/Vol] 12 mg/dL 7-18 [facility] Thin prep Papanicolaou smear with manual screeningOrdered By: Dr. Ayoub on 02-16-2022 Thin prep Papanicolaou smear with manual screening 5 5-15 [facility] Absolute lymphocyte counton 02-09-2022 Lymphocytes Auto (Unsp spec) [#/Vol] 1.54 10*3/uL 0.83-4.51 [facility] Work Phone: Basophil percentageon 2021 Basophils/100 WBC (Bld) 0.9 % 0-1 [facility] Work Phone: Chloride [Moles/Vol] 108 mmol/L 98-107 [facility] Work Phone: Eosinophils/100 WBC (Bld) 2.2 % 0-5 [facility] Work Phone: Glucose [Mass/Vol] 100 mg/dL 74-106 [facility] Work Phone: Comment on above: Fasting Glucose resu lt from 100 to 125 mg/dL suggests IMPAIRED HOMEOSTASIS per A.D.A. criteria. Neutrophils (Bld) [#/Vol] 3.2 10*3/uL 2.0-7.7 [facility] Work Phone: Neutrophils/100 WBC (Bld) 59.5 % 47-70 [facility] Work Phone: Potassium [Moles/Vol] 3.7 mmol/L 3.5-5.1 [facility] Work Phone: Sodium [Moles/Vol] 139 mmol/L 136-145 [facility] Work Phone: WBC (Bld) [#/Vol] 5.4 10*3/uL 4.4-11.0 [facility] Work Phone: Blood erythrocytes count (nu mber/volume)on 02-09-2022 RBC (Bld) [#/Vol] 3.23 10*6/uL 4.2-5.4 [facility] Work Phone: Blood hemoglobin measurement (mass/volume)on 02-09-2022 Hemoglobin (Bld) [Mass/Vol] 9.8 g/dL 12.0-15.0 [facility] Work Phone: [phone] Blood lymphocytes/100 leukoc yteson 02-09-2022 Lymphocytes/100 WBC (Bld) 28.6 % 19-41 [facility] Work Phone: [phone] Blood monocytes/100 leukocyt eson 02-09-2022 Monocytes/100 WBC (Bld) 8.2 % 0-10 [facility] Work Phone: Blood platelet mean volumeon 02-09-2022 Platelet mean volume (Bld) [Entitic vol] 9.1 fL 6.2-12.0 [facility] Work Phone: Determination of erythrocyte mean corpuscular volume (MCV)on 02-09-2022 MCV (RBC) [Entitic vol] 91.6 fL 81-99 [facility] Work Phone: Hematocrit Auto (Bld) [Volum e fraction]on 02-09-2022 Hematocrit (Bld) [Volume fraction] 29.6 % 37-47 [facility] Work Phone: [phone] Laboratory - Chemistry and C hemistry - challengeon 02-09-2022 CO2 [Moles/Vol] 27.0 mmol/L 21.0-32.0 [facility] Work Phone: Urea nitrogen/Creatinine [Mass ratio] 20.0 mg/mg 10-20 [facility] Work Phone: [phone] Laboratory - Hematology and Cell countson 02-09-2022 Erythrocyte distribution width (RBC) [Entitic vol] 51.8 fL 35.1-43.9 [facility] Work Phone: [phone] Erythrocyte distribution width (RBC) [Ratio] 15.8 % 11.6-14.6 [facility] Work Phone: Immature granulocytes/100 WBC (Bld) 0.600 % 0.0-0.9 [facility] Work Phone: [phone] Comment on above: IG% - Immature Granu locytes (promyelocytes, myelocytes and metamyelocytes) > 1% indicates that a LEFT SHIFT is Present. MCH (RBC) [Entitic mass] 30.3 pg 27.0-32.0 [facility] Work Phone: [phone] Nucleated RBC/100 WBC (Bld) [Ratio] 0 % 0-5 [facility] Work Phone: [phone] MCHC Auto (RBC) [Mass/Vol]on 02-09-2022 MCHC (RBC) [Mass/Vol] 33.1 g/dL 32-36 [facility] Work Phone: No Panel Informationon 02-09 Estimated Creatinine Clearance Calc 44.80 ml/min [facility] Work Phone: [phone] Estimated GFR (MDRD) Amer 138 mL/min >60 [facility] Work Phone: [phone] Comment on above: GFR Calc Estimated GFR (MDRD) Non-Af Amer 114 mL/min >60 [facility] Work Phone: [phone] Comment on above: Non- GFR Calc Platelets bldon 02-09-2022 Platelets (Bld) [#/Vol] 404 10*3/uL 150-450 [facility] Work Phone: [phone] Serum or plasma calcium guy urement (mass/volume)on 02-09-2022 Calcium [Mass/Vol] 9.0 mg/dL 8.5-10.1 [facility] Work Phone: [phone] Serum or plasma creatinine m easurement (mass/volume)on 02-09-2022 Creatinine [Mass/Vol] 0.55 mg/dL 0.55-1.02 [facility] Work Phone: [phone] Comment on above: The validity of the calculated GFR & GFRAA in patients over 70 years has not been determined. Clinical correlation is essential. Serum or plasma urea nitroge n measurement (mass/volume)on 02-09-2022 Urea nitrogen [Mass/Vol] 11 mg/dL 7-18 [facility] Work Phone: Thin prep Papanicolaou smear with manual screeningon 02-09-2022 Thin prep Papanicolaou smear with manual screening 4 5-15 [facility] Work Phone: Absolute lymphocyte countOrd ered By: Dr. rCawford on 02-01-2022 Lymphocytes Auto (Unsp spec) [#/Vol] 1.61 10*3/uL 0.83-4.51 [facility] Basophil percentageOrdered B y: Dr. Crawford on 02-01-2022 Basophils/100 WBC (Bld) 0.4 % 0-1 [facility] Eosinophils/100 WBC (Bld) 1.7 % 0-5 [facility] Neutrophils (Bld) [#/Vol] 6.1 10*3/uL 2.0-7.7 [facility] Neutrophils/100 WBC (Bld) 67.2 % 47-70 [facility] WBC (Bld) [#/Vol] 9.1 10*3/uL 4.4-11.0 [facility] Basophil percentageOrdered B y: Dr. Saleem on 02-01-2022 Bilirubin [Mass/Vol] 0.50 mg/dL 0.20-1.00 [facility] Comment on above: For patients on eltr ombopag therapy, use of Dimension [place] TBIL is not recommended. Chloride [Moles/Vol] 108 mmol/L 98-107 [facility] Glucose [Mass/Vol] 102 mg/dL 74-106 [facility] Comment on above: Fasting Glucose resu lt from 100 to 125 mg/dL suggests IMPAIRED HOMEOSTASIS per A.D.A. criteria. Potassium [Moles/Vol] 4.2 mmol/L 3.5-5.1 [facility] Protein [Mass/Vol] 5.1 g/dL 6.4-8.2 [facility] Sodium [Moles/Vol] 140 mmol/L 136-145 [facility] Blood erythrocytes count (nu mber/volume)Ordered By: Dr. Crawford on 02-01-2022 RBC (Bld) [#/Vol] 3.01 10*6/uL 4.2-5.4 [facility] Blood hemoglobin measurement (mass/volume)Ordered By: Dr. Crawford on 02-01-2022 Hemoglobin (Bld) [Mass/Vol] 8.9 g/dL 12.0-15.0 [facility] Blood lymphocytes/100 leukoc ytesOrdered By: Dr. Crawford on 02-01-2022 Lymphocytes/100 WBC (Bld) 17.8 % 19-41 [facility] Blood monocytes/100 leukocyt esOrdered By: Dr. Crawford on 02-01-2022 Monocytes/100 WBC (Bld) 11.7 % 0-10 [facility] Blood platelet mean volumeOr dered By: Dr. Crawford on 02-01-2022 Platelet mean volume (Bld) [Entitic vol] 10.0 fL 6.2-12.0 [facility] COVID-19 virus antigen assay Ordered By: Dr. Crawford on 02-01-2022 SARS-CoV-2 (COVID-19) Ag IA.rapid Ql (Resp) [facility] Determination of erythrocyte mean corpuscular volume (MCV)Ordered By: Dr. Crawford on 02-01-2022 MCV (RBC) [Entitic vol] 89.0 fL 81-99 [facility] Hematocrit Auto (Bld) [Volum e fraction]Ordered By: Dr. Crawford on 02-01-2022 Hematocrit (Bld) [Volume fraction] 26.8 % 37-47 [facility] Laboratory - Chemistry and C hemistry - challengeOrdered By: Dr. Saleem on 02-01-2022 ALP [Catalytic activity/Vol] 94 U/L 45-117 [facility] ALT [Catalytic activity/Vol] 21 U/L 13-56 [facility] CO2 [Moles/Vol] 28.0 mmol/L 21.0-32.0 [facility] Globulin (S) [Mass/Vol] 2.7 g/dL 2.2-4.2 [facility] Urea nitrogen/Creatinine [Mass ratio] 18.8 mg/mg 10-20 [facility] Laboratory - Hematology and Cell countsOrdered By: Dr. Crawford on 02-01-2022 Erythrocyte distribution width (RBC) [Entitic vol] 43.7 fL 35.1-43.9 [facility] Erythrocyte distribution width (RBC) [Ratio] 13.4 % 11.6-14.6 [facility] Immature granulocytes/100 WBC (Bld) 1.200 % 0.0-0.9 [facility] Comment on above: IG% - Immature Granu locytes (promyelocytes, myelocytes and metamyelocytes) > 1% indicates that a LEFT SHIFT is Present. MCH (RBC) [Entitic mass] 29.6 pg 27.0-32.0 [facility] Nucleated RBC/100 WBC (Bld) [Ratio] 0.4 % 0-5 [facility] MCHC Auto (RBC) [Mass/Vol]Or dered By: Dr. Crawford on 02-01-2022 MCHC (RBC) [Mass/Vol] 33.2 g/dL 32-36 [facility] No Panel InformationOrdered By: Dr. Saleem on 02-01-2022 Estimated Creatinine Clearance Calc 44.80 ml/min [facility] Estimated GFR (MDRD) Amer 106 mL/min >60 [facility] Comment on above: GFR Calc Estimated GFR (MDRD) Non-Af Amer 87 mL/min >60 [facility] Comment on above: Non- GFR Calc Platelets bldOrdered By: Dr. Crawford on 02-01-2022 Platelets (Bld) [#/Vol] 202 10*3/uL 150-450 [facility] Serum or plasma albumin guy urement (mass/volume)Ordered By: Dr. Saleem on 02-01-2022 Albumin [Mass/Vol] 2.4 g/dL 3.2-5.0 [facility] Serum or plasma albumin/glob ulin mass ratioOrdered By: Dr. Saleem on 02-01-2022 Albumin/Globulin [Mass ratio] 0.9 {ratio} 0.9-2.4 [facility] Serum or plasma calcium guy urement (mass/volume)Ordered By: Dr. Saleem on 02-01-2022 Calcium [Mass/Vol] 8.8 mg/dL 8.5-10.1 [facility] Serum or plasma creatinine m easurement (mass/volume)Ordered By: Dr. Saleem on 02-01-2022 Creatinine [Mass/Vol] 0.69 mg/dL 0.55-1.02 [facility] Comment on above: The validity of the calculated GFR & GFRAA in patients over 70 years has not been determined. Clinical correlation is essential. Serum or plasma urea nitroge n measurement (mass/volume)Ordered By: Dr. Saleem on 02-01-2022 Urea nitrogen [Mass/Vol] 13 mg/dL 7-18 [facility] Thin prep Papanicolaou smear with manual screeningOrdered By: Dr. Saleem on 02-01-2022 Thin prep Papanicolaou smear with manual screening 27 U/L 15-37 [facility] Thin prep Papanicolaou smear with manual screening 4 5-15 [facility] Hemoglobin in reticulocytes (mass per reticulocyte)Ordered By: Dr. Saleem on 01-31-2022 Hemoglobin (Reticulocytes) [Entitic mass] 31.8 pg 30-35 [facility] Iron measurement (mass/mass) Ordered By: Dr. Saleem on 01-31-2022 Iron (Unsp spec) [Mass/Mass] 48 ug/dL 50-170 [facility] No Panel InformationOrdered By: Dr. Saleem on 01-31-2022 Immature Reticulocyte Fraction 11.90 % 3.00-15.90 [facility] Reticulocyte Count 2.09 % 0.5-1.5 [facility] Total Iron Binding Capacity 385 ug/dL 250-450 [facility] Serum or plasma ferritin miguel surement (mass/volume)Ordered By: Dr. Saleem on 01-31-2022 Ferritin [Mass/Vol] 122 ng/mL 8-252 [facility] Serum or plasma iron saturat ion measurement (mass fraction)Ordered By: Dr. Saleem on 01-31-2022 Iron saturation [Mass fraction] 12.5 % 15.0-55.0 [facility] Absolute lymphocyte counton 01-29-2022 Lymphocytes Auto (Unsp spec) [#/Vol] 1.51 10*3/uL 0.83-4.51 [facility] Work Phone: Basophil percentageon 2021 Potassium [Moles/Vol] 4.2 mmol/L 3.5-5.1 [facility] Work Phone: Comment on above: Slight Hemolysis, Re sult may be falsely increased. Basophils/100 WBC (Bld) 0.5 % 0-1 [facility] Work Phone: Bilirubin [Mass/Vol] 0.50 mg/dL 0.20-1.00 [facility] Work Phone: Comment on above: For patients on eltr ombopag therapy, use of Dimension [place] TBIL is not recommended. Chloride [Moles/Vol] 106 mmol/L 98-107 [facility] Work Phone: Eosinophils/100 WBC (Bld) 1.6 % 0-5 [facility] Work Phone: Glucose [Mass/Vol] 104 mg/dL 74-106 [facility] Work Phone: Comment on above: Fasting Glucose resu lt from 100 to 125 mg/dL suggests IMPAIRED HOMEOSTASIS per A.D.A. criteria. Neutrophils (Bld) [#/Vol] 5.9 10*3/uL 2.0-7.7 [facility] Work Phone: Neutrophils/100 WBC (Bld) 73.1 % 47-70 [facility] Work Phone: Protein [Mass/Vol] 6.3 g/dL 6.4-8.2 [facility] Work Phone: Sodium [Moles/Vol] 139 mmol/L 136-145 [facility] Work Phone: WBC (Bld) [#/Vol] 8.0 10*3/uL 4.4-11.0 [facility] Work Phone: Blood erythrocytes count (nu mber/volume)on 01-29-2022 RBC (Bld) [#/Vol] 4.29 10*6/uL 4.2-5.4 [facility] Work Phone: Blood hemoglobin measurement (mass/volume)on 01-29-2022 Hemoglobin (Bld) [Mass/Vol] 12.3 g/dL 12.0-15.0 [facility] Work Phone: Blood lymphocytes/100 leukoc yteson 01-29-2022 Lymphocytes/100 WBC (Bld) 18.8 % 19-41 [facility] Work Phone: Blood monocytes/100 leukocyt eson 01-29-2022 Monocytes/100 WBC (Bld) 5.6 % 0-10 [facility] Work Phone: Blood platelet mean volumeon 01-29-2022 Platelet mean volume (Bld) [Entitic vol] 10.3 fL 6.2-12.0 [facility] Work Phone: Determination of erythrocyte mean corpuscular volume (MCV)on 01-29-2022 MCV (RBC) [Entitic vol] 89.3 fL 81-99 [facility] Work Phone: Hematocrit Auto (Bld) [Volum e fraction]on 01-29-2022 Hematocrit (Bld) [Volume fraction] 38.3 % 37-47 [facility] Work Phone: [phone] INR in Blood by Coagulation assayOrdered By: Dr. Bliss on 01-29-2022 INR Coag (Bld) [Relative time] 1.0 {INR} [facility] Laboratory - Chemistry and C hemistry - challengeon 01-29-2022 ALP [Catalytic activity/Vol] 131 U/L 45-117 [facility] Work Phone: ALT [Catalytic activity/Vol] 35 U/L 13-56 [facility] Work Phone: [phone] CO2 [Moles/Vol] 23.0 mmol/L 21.0-32.0 [facility] Work Phone: Globulin (S) [Mass/Vol] 3.0 g/dL 2.2-4.2 [facility] Work Phone: [phone] Urea nitrogen/Creatinine [Mass ratio] 17.2 mg/mg 10-20 [facility] Work Phone: [phone] Laboratory - CoagulationOrde red By: Dr. Bliss on 01-29-2022 aPTT Coag (Bld) [Time] 25.6 s 24.1-36.2 [facility] PT Coag (PPP) [Time] 12.5 s 11.7-14.9 [facility] Laboratory - Hematology and Cell countson 01-29-2022 Erythrocyte distribution width (RBC) [Entitic vol] 42.6 fL 35.1-43.9 [facility] Work Phone: [phone] Erythrocyte distribution width (RBC) [Ratio] 13.0 % 11.6-14.6 [facility] Work Phone: [phone] Immature granulocytes/100 WBC (Bld) 0.400 % 0.0-0.9 [facility] Work Phone: [phone] Comment on above: IG% - Immature Granu locytes (promyelocytes, myelocytes and metamyelocytes) > 1% indicates that a LEFT SHIFT is Present. MCH (RBC) [Entitic mass] 28.7 pg 27.0-32.0 [facility] Work Phone: [phone] Nucleated RBC/100 WBC (Bld) [Ratio] 0 % 0-5 [facility] Work Phone: [phone] MCHC Auto (RBC) [Mass/Vol]on 01-29-2022 MCHC (RBC) [Mass/Vol] 32.1 g/dL 32-36 [facility] Work Phone: [phone] No Panel InformationOrdered By: Dr. Quinn on 01-29-2022 Troponin I High Sensitivity 6 pg/mL 3.0-54.0 [facility] Comment on above: Please Note: New [place] t Units and Gender Specific Reference Ranges. For more information see Policy Stat Procedure [place] High Sensitivity Troponin (TNIH) and attachments. No Panel Informationon 01-29 Estimated Creatinine Clearance Calc 55.31 ml/min [facility] Work Phone: [phone] Estimated GFR (MDRD) Amer 88 mL/min >60 [facility] Work Phone: [phone] Comment on above: GFR Calc Estimated GFR (MDRD) Non-Af Amer 73 mL/min >60 [facility] Work Phone: Comment on above: Non- GFR Calc Platelets bldon 01-29-2022 Platelets (Bld) [#/Vol] 248 10*3/uL 150-450 [facility] Work Phone: Serum or plasma albumin guy urement (mass/volume)on 01-29-2022 Albumin [Mass/Vol] 3.3 g/dL 3.2-5.0 [facility] Work Phone: Serum or plasma albumin/glob ulin mass ratioon 01-29-2022 Albumin/Globulin [Mass ratio] 1.1 {ratio} 0.9-2.4 [facility] Work Phone: Serum or plasma calcium guy urement (mass/volume)on 01-29-2022 Calcium [Mass/Vol] 8.1 mg/dL 8.5-10.1 [facility] Work Phone: Serum or plasma creatinine m easurement (mass/volume)on 01-29-2022 Creatinine [Mass/Vol] 0.81 mg/dL 0.55-1.02 [facility] Work Phone: Comment on above: The validity of the calculated GFR & GFRAA in patients over 70 years has not been determined. Clinical correlation is essential. Serum or plasma urea nitroge n measurement (mass/volume)on 01-29-2022 Urea nitrogen [Mass/Vol] 14 mg/dL 7-18 [facility] Work Phone: Thin prep Papanicolaou smear with manual screeningon 01-29-2022 Thin prep Papanicolaou smear with manual screening 24 U/L 15-37 [facility] Work Phone: Thin prep Papanicolaou smear with manual screening 10 5-15 [facility] Work Phone: Laboratory - Microbiology an d Antimicrobial susceptibilityon 07-28-2021 SARS-CoV-2 (COVID-19) RNA [place]+probe Ql (Unsp spec) Detected [facility] Work Phone: No Panel Informationon 07-28 Influenza Types A,B Rapid (Clinic) Not detected [facility] Work Phone: No Panel Informationon 03-26 SARS-CoV-2 Antigen (Rapid) [facility] Work Phone: No Panel Informationon 02-27 SARS-CoV-2 Antigen (Rapid) [facility] Work Phone: CNPTOUTREACHon 05-13-2020 CNPTOUTREACH Patient Outreach ([facility]) JAEL HUGGINS ([id number]) 1945 F Date Time Provider Department 05/13/20 ATNHONY DUONG During your visit today, we recorded the following information about you: Allergies As of Date: 05/13/2020 Noted Allergy Reaction SEASONAL ALLERGIES 03/24/2018 14 - Other: See Comments Comments: Sneeze, cough, watey eyes Date Reviewed: Never Reviewed Order(s):SARS-COVID VACCINE 1ST DOSE APPT [[id number]] Order #: [id number] FUTURE Prescriptions as of 05/13/2020 Sig: LEVOTHYROXINE 75 MCG CAPSULE Take 75 mcg by mouth once darron* Problem List As Of Date: 05/13/2020 (None) Letter Text Encounter Status:Closed by Milabra, PRODUSER on 05/16/20 Normal [facility] COVID-19 virus antigen assay SARS-CoV-2 (COVID-19) Ag IA.rapid Ql (Resp) [facility] Work Phone: Gram stain for investigation of transfusion reaction Microscopic observation Gram stain Nom (Unsp spec) [facility] Work Phone: Vital Signs Date Time Vital Sign Value Performing Clinician Margoth gonzales 08-01-2024 09:53-0400 Body height 167.[address] Lucio Ayoub MD Work Phone: [facility] 08-01-2024 09:53-0400 Body mass index (BMI) [Ratio] 25.8 kg/m2 Dr. Lucio Ayoub MD Work Phone: [facility] 08-01-2024 09:53-0400 Body weight 72.[address] Lucio Ayoub MD Work Phone: [facility] 06-02-2023 08:56-0400 Body height 162.[address] [facility] 06-02-2023 08:56-0400 Body temperature 96.9 [degF] [facility] 06-02-2023 08:56-0400 Diastolic blood pressure 79 mm[Hg] [facility] 06-02-2023 08:56-0400 Heart rate 83 /min [facility] 06-02-2023 08:56-0400 Respiratory rate 14 /min [facility] 06-02-2023 08:56-0400 SaO2% (BldA) [Mass fraction] 99 % [facility] 06-02-2023 08:56-0400 Systolic blood pressure 151 mm[Hg] [facility] 02-20-2022 14:00-0500 Body temperature 98.7 [degF] Dr. Lucio Ayoub Work Phone: [facility] 02-20-2022 14:00-0500 Diastolic blood pressure 60 mm[Hg] Dr. Lucio Ayoub Work Phone: [facility] 02-20-2022 14:00-0500 Heart rate 87 /min Dr. Lucio Ayoub Work Phone: [facility] 02-20-2022 14:00-0500 Respiratory rate 18 /min Dr. Lucio Ayoub Work Phone: [facility] 02-20-2022 14:00-0500 SaO2% (BldA) [Mass fraction] 95 % Dr. Lucio Ayoub Work Phone: [facility] 02-20-2022 14:00-0500 Systolic blood pressure 153 mm[Hg] Dr. Lucio Ayoub Work Phone: [facility] 02-17-2022 15:21-0500 Body height 167.[address] Lucio Ayoub Work Phone: [facility] 02-17-2022 15:21-0500 Body weight 70.[address] Lucio Ayoub Work Phone: [facility] 02-15-2022 13:35-0500 Body temperature 98.2 [degF] Dr. Lucio Ayoub Work Phone: [facility] Work Phone: 02-15-2022 13:35-0500 Diastolic blood pressure 55 mm[Hg] Dr. Lucio Ayoub Work Phone: [facility] Work Phone: 02-15-2022 13:35-0500 Heart rate 71 /min Dr. Lucio Ayoub Work Phone: [facility] Work Phone: 02-15-2022 13:35-0500 Respiratory rate 18 /min Dr. Lucio yAoub Work Phone: [facility] Work Phone: 02-15-2022 13:35-0500 SaO2% (BldA) [Mass fraction] 96 % Dr. Lucio Ayoub Work Phone: [facility] Work Phone: 02-15-2022 13:35-0500 Systolic blood pressure 132 mm[Hg] Dr. Lucio Ayoub Work Phone: [facility] Work Phone: 02-10-2022 15:02-0500 Body height 167.[address] Lucio Ayoub Work Phone: [facility] Work Phone: 02-10-2022 15:02-0500 Body weight 71.[address] Lucio Ayoub Work Phone: [facility] Work Phone: 02-01-2022 16:27-0500 Body temperature 98.4 [degF] Dr. Lucio Ayoub Work Phone: [facility] 02-01-2022 16:27-0500 Diastolic blood pressure 90 mm[Hg] Dr. Lucio Ayoub Work Phone: [facility] 02-01-2022 16:27-0500 Heart rate 101 /min Dr. Lucio Ayoub Work Phone: [facility] 02-01-2022 16:27-0500 Respiratory rate 16 /min Dr. Lucio Ayoub Work Phone: [facility] 02-01-2022 16:27-0500 SaO2% (BldA) [Mass fraction] 95 % Dr. Lucio Ayoub Work Phone: [facility] 02-01-2022 16:27-0500 Systolic blood pressure 145 mm[Hg] Dr. Lucio Ayoub Work Phone: [facility] 02-01-2022 14:57-0500 Inhaled oxygen flow rate 2 L/min Dr. Lucio Ayoub Work Phone: [facility] 02-01-2022 05:22-0500 Body weight 78.[address] Lucio Ayoub Work Phone: [facility] 01-29-2022 18:12-0500 Body mass index (BMI) [Ratio] 29.9 kg/m2 Dr. Lucio Ayoub Work Phone: [facility] 01-29-2022 12:11-0500 Body height 167.[address] Lucio Ayoub Work Phone: [facility] Work Phone: 01-29-2022 12:11-0500 Body mass index (BMI) [Ratio] 29.9 kg/m2 Dr. Lucio Ayoub Work Phone: [facility] Work Phone: 01-29-2022 12:11-0500 Body temperature 97 [degF] Dr. Lucio Ayoub Work Phone: [facility] Work Phone: 01-29-2022 12:11-0500 Body weight 84.[address] Lucio Ayoub Work Phone: [facility] Work Phone: 01-29-2022 12:11-0500 Heart rate 89 /min Dr. Lucio Ayoub Work Phone: [facility] Work Phone: 01-29-2022 12:11-0500 Respiratory rate 16 /min Dr. Lucio Ayoub Work Phone: [facility] Work Phone: 01-29-2022 12:11-0500 SaO2% (BldA) [Mass fraction] 98 % Dr. Lucio Ayoub Work Phone: [facility] Work Phone: 01-29-2022 11:06-0500 Diastolic blood pressure 66 mm[Hg] Dr. Lucio Ayoub Work Phone: [facility] Work Phone: 01-29-2022 11:06-0500 Systolic blood pressure 136 mm[Hg] Dr. Lucio Ayoub Work Phone: [facility] Work Phone: 09-12-2021 15:48-0400 Body height 167.[address] Lucio Ayoub Work Phone: [facility] Work Phone: 09-12-2021 15:48-0400 Body mass index (BMI) [Ratio] 23.6 kg/m2 Dr. Lucio Ayoub Work Phone: [facility] Work Phone: 09-12-2021 15:48-0400 Body temperature 98 [degF] Dr. Lucio Ayoub Work Phone: [facility] Work Phone: 09-12-2021 15:48-0400 Body weight 66.[address] Lucio Ayoub Work Phone: [facility] Work Phone: 09-12-2021 15:48-0400 Diastolic blood pressure 115 mm[Hg] Dr. Lucio Ayoub Work Phone: [facility] Work Phone: 09-12-2021 15:48-0400 Heart rate 109 /min Dr. Lucio Ayoub Work Phone: [facility] Work Phone: 09-12-2021 15:48-0400 Respiratory rate 16 /min Dr. Lucio Ayoub Work Phone: [facility] Work Phone: 09-12-2021 15:48-0400 SaO2% (BldA) [Mass fraction] 98 % Dr. Lucio Ayoub Work Phone: [facility] Work Phone: 09-12-2021 15:48-0400 Systolic blood pressure 169 mm[Hg] Dr. Lucio Ayoub Work Phone: [facility] Work Phone: 07-28-2021 09:26-0400 Body temperature 99.1 [degF] Dr. Lucio Ayoub Work Phone: [facility] Work Phone: 07-28-2021 09:26-0400 Diastolic blood pressure 78 mm[Hg] Dr. Lucio Ayoub Work Phone: [facility] Work Phone: 07-28-2021 09:26-0400 Heart rate 91 /min Dr. Lucio Ayoub Work Phone: [facility] Work Phone: 07-28-2021 09:26-0400 Respiratory rate 15 /min Dr. Lucio Ayoub Work Phone: [facility] Work Phone: 07-28-2021 09:26-0400 SaO2% (BldA) [Mass fraction] 96 % Dr. Lucio Ayoub Work Phone: [facility] Work Phone: 07-28-2021 09:26-0400 Systolic blood pressure 126 mm[Hg] Dr. Lucio Ayoub Work Phone: [facility] Work Phone: 04-21-2021 00:12-0500 Body mass index (BMI) [Ratio] 24.5 kg/m2 Dr. Lucio Ayoub Work Phone: [facility] Work Phone: 04-20-2021 23:12-0500 Body mass index (BMI) [Ratio] 24.5 kg/m2 Dr. Lucio Ayoub Work Phone: [facility] Work Phone: 04-09-2021 10:12-0500 Body height 167.[address] Lucio Ayoub Work Phone: [facility] Work Phone: 04-09-2021 10:12-0500 Body mass index (BMI) [Ratio] 24.5 kg/m2 Dr. Lucio Ayoub Work Phone: [facility] Work Phone: 04-09-2021 10:12-0500 Body temperature 97 [degF] Dr. Lucio Ayoub Work Phone: [facility] Work Phone: 04-09-2021 10:12-0500 Body weight 68.[address] Lucio Ayoub Work Phone: [facility] Work Phone: 04-09-2021 10:12-0500 Diastolic blood pressure 74 mm[Hg] Dr. Lucio Ayoub Work Phone: [facility] Work Phone: 04-09-2021 10:12-0500 Heart rate 74 /min Dr. Lucio Ayoub Work Phone: [facility] Work Phone: 04-09-2021 10:12-0500 Respiratory rate 16 /min Dr. Lucio Ayoub Work Phone: [facility] Work Phone: 04-09-2021 10:12-0500 SaO2% (BldA) [Mass fraction] 97 % Dr. Lucio Ayoub Work Phone: [facility] Work Phone: 04-09-2021 10:12-0500 Systolic blood pressure 126 mm[Hg] Dr. Lucio Ayoub Work Phone: [facility] Work Phone: 03-20-2021 23:05-0500 Body mass index (BMI) [Ratio] 24.5 kg/m2 Dr. Lucio Ayoub Work Phone: [facility] Work Phone: 12-19-2020 00:19-0400 Body mass index (BMI) [Ratio] 24.5 kg/m2 Dr. Lucio Ayoub Work Phone: [facility] Work Phone: Encounters Encounter Date Encounter Type Care Provider Facility Start: 08-01-2024 End: 08-01-[address] Bratxon Salas DO -[facility] Work Phone: Start: 08-01-2024 End: 08-01-[address] Lucoi Ayoub MD Work Phone: [facility] Work Phone: Start: 07-16-2024 End: 07-16-[address] Lucio Ayoub MD -Laboratory Work Phone: Start: 07-16-2024 End: 07-16-2024 ambulatory Lucio Ayoub Facility:[facility] Start: 06-13-2024 ambulatory Lucio Ayoub Facility:[facility] Start: 05-22-2024 End: 05-22-[address] Lucio Ayoub MD Work Phone: [facility] Work Phone: Start: 05-22-2024 End: 05-22-[address] Lucio Ayoub MD -Laboratory, Phy Office 3rd Flr Start: 05-22-2024 End: 05-22-2024 ambulatory Lucio Chi Mega Facility:[facility] Start: 04-24-2024 End: 04-24-[address] Lucio Ayoub MD Work Phone: [facility] Work Phone: Start: 04-24-2024 End: 04-24-[address] Lucio Ayoub MD -Physical Therapy Work Phone: Start: 04-06-2024 End: 04-06-[address] Lucio Ayoub MD -Laboratory, Phy Office 3rd Flr Start: 04-06-2024 End: 04-06-2024 ambulatory Lucio Chi Mega Facility:[facility] Start: 01-25-2024 ambulatory Ronnell AVILA Facilit y:[facility] Start: 01-25-2024 Non-patient / Non-visit Dr. Rosario mendosa MD -[facility] Start: 01-25-2024 End: 01-25-2024 Patient encounter procedure Ronnell Fontenot PA-C -Pulmonary Services/Neurology Work Phone: Start: 01-25-2024 End: 01-25-2024 ambulatory Ronnell AVILA Facility:[facility] Start: 01-18-2024 End: 01-18-2024 ambulatory Lucio Chi Mega Facility:[facility] Start: 01-03-2024 ambulatory Lucio Chi Mega Facility:[facility] Start: 01-03-2024 End: 01-03-2024 ambulatory Lucio Chi Mega Facility:[facility] Start: 11-22-2023 End: 11-22-2023 ambulatory Lucio Chi Mega Facility:[facility] Start: 08-22-2023 End: 08-22-2023 Emergency department patient visit Tommy Huff Facility:[facility] Start: 07-14-2023 End: 07-14-2023 ambulatory [facility] Work Phone: Start: 07-14-2023 End: 07-14-2023 Patient encounter procedure [facility]-Radiology, [facility] Work Phone: Start: 06-29-2023 End: 06-29-2023 ambulatory [facility] Work Phone: Start: 06-29-2023 End: 06-29-2023 Patient encounter procedure [facility]-Pulmonary Services/Neurology Work Phone: Start: 06-09-2023 End: 06-09-2023 ambulatory [facility] Work Phone: Start: 06-09-2023 End: 06-09-2023 Patient encounter procedure [facility]-Laboratory, Phy Office 3rd Flr Start: 06-02-2023 End: 06-02-2023 Emergency department patient visit [facility]-Emergency Department Work Phone: Start: 04-25-2023 End: 04-25-2023 Patient encounter procedure [facility]-Laboratory, Phy Office 3rd Flr Start: 04-19-2022 End: 04-19-[address] Lucio Ayoub Work Phone: [facility] Work Phone: Start: 04-19-2022 End: 04-19-[address] [facility] Start: 03-24-2022 End: 03-24-[address] Lucio Ayoub Work Phone: [facility] Start: 02-12-2022 Non-patient / Non-visit Dr. Adriano Ayoub Work Phone: [facility] Start: 02-12-2022 End: 02-12-[address] Lucio Ayoub Work Phone: [facility] Work Phone: Start: 02-12-2022 End: 02-12-[address] Lucio Ayoub Work Phone: [facility]-Cardiovascular Services Start: 02-12-2022 End: 02-12-[address] Lucio Ayoub Work Phone: [facility] Start: 02-01-2022 End: 02-20-2022 Evaluation and management of inpatient Dr. Lucio Ayoub Work Phone: [facility]-Transitional Care Unit Start: 02-01-2022 Non-patient / Non-visit Dr. Adriano Ayoub Work Phone: [facility] Start: 01-31-2022 Non-patient / Non-visit Dr. Adriano Ayoub Work Phone: [facility] Start: 01-30-2022 Non-patient / Non-visit Dr. Adriano Ayoub Work Phone: [facility] Start: 01-30-2022 Non-patient / Non-visit Dr. Adriano Ayoub Work Phone: [facility] Start: 01-29-2022 End: 01-29-2022 Non-patient / Non-visit Dr. Lucio Ayoub Work Phone: [facility] Start: 01-29-2022 Non-patient / Non-visit Dr. Adriano Ayoub Work Phone: [facility] Start: 01-29-2022 Non-patient / Non-visit Dr. Adriano Ayoub Work Phone: [facility] Start: 01-29-2022 End: 02-01-2022 Evaluation and management of inpatient Dr. Lucio Ayoub Work Phone: [facility]-Medical Surgical 3 Start: 09-30-2021 End: 09-30-[address] [facility]b [facility] Start: 09-12-2021 End: 09-12-2021 Emergency department patient visit Dr. Lucio Ayoub [facility] Start: 08-26-[address] Lucio robins [facility] Start: 07-28-2021 End: 07-28-[address] Lucio Ayoub Work Phone: [facility] Start: 06-11-2021 End: 06-18-[address] Lucio Ayuob Work Phone: [facility] Start: 04-09-2021 End: 04-09-[address] Lucio Ayoub Work Phone: [facility] Start: 03-26-2021 End: 04-20-[address] Lucio Ayoub Work Phone: [facility] Start: 02-27-2021 End: 03-20-[address] Lucio Ayoub Work Phone: [facility] Procedures Date Procedure Procedure Detail Performing Clinician Start: 05-22-2024 Vitamin D, 25-hydrox y measurement Dr. Lucio Ayoub MD Work Phone: Comment on above: Vitamin D StatusDefi ciency: <20 ng/mL (50nmol/L)Insufficiency: 20-30 ng/mL (50-75 nmol/L)Sufficiency: 30-100 ng/mL (75-250 nmol/L)Toxicity: >100 ng/mL (>250 nmol/L) Start: 04-06-2024 Urnls dip stick/tabl et reagent auto microscopy Dr. Lucio Ayoub MD Work Phone: Start: 07-14-2023 Plain x-ray of pelvi s and lower extremity Start: 07-14-2023 X-ray of lumbosacral spine Start: 06-29-2023 SARS-CoV-2, Influenz a & RSV (PCR) Start: 03-24-2022 Plain x-ray of pelvi s and lower extremity Dr. Lucio Ayoub Work Phone: Start: 01-29-2022 Fluoroscopic guidance Jake Ayoub Work Phone: Start: 01-29-2022 Plain X-ray of hip Dr. Lucio Ayoub Work Phone: Start: 01-29-2022 Trochanteric Fixatio n Nail, Synthes (Right) Dr. Lucio Ayoub Work Phone: Start: 01-29-2022 Plain X-ray of femur Dr Alice Ayoub Work Phone: Start: 01-29-2022 Plain x-ray of pelvi s and lower extremity Dr. Lucio Ayoub Work Phone: Start: 01-29-2022 Plain chest X-ray Dr. Rina Ayoub Work Phone: Start: 09-12-2021 X-ray of chest posteroanterior view Dr. Lucio Ayoub Work Phone: Start: 06-11-2021 End: 06-11-[address] Lucio Ayoub Work Phone: Start: 04-09-2021 Radiologic examinati on of knee Dr. Lucio Ayoub Work Phone: Start: 03-26-2021 SARS-CoV-2 Antigen (Rapid) Dr. Lucio Ayoub Work Phone: Start: 02-27-2021 SARS-CoV-2 Antigen (Rapid) Dr. Lucio Ayoub Work Phone: Bacteria identificat ion test Dr. Lucio Ayoub Work Phone: H/O: hysterectomy History of par tial hysterectomy Dr. Lucio Ayoub Work Phone: Investigation of transfusion reaction Dr. Lucio Ayoub Work Phone: Investigation of transfusion reaction Dr. Lucio Ayoub Work Phone: Microscopic observat ion [Identifier] in Unspecified specimen by Gram stain Dr. Lucio Ayoub Work Phone: Respiratory microbia l culture Dr. Lucio Ayoub Work Phone: Viral antigen assay Dr. Lucio Ayoub Work Phone: Viral antigen assay Dr. Lucio Ayoub Work Phone: Plan of Treatment Date Care Activity Detail Author Start: 08-27-2024 ambulatory Ambulatory Facility:[facility] Start: 06-02-2023 Simple repair scalp/neck/ax/genit/trunk 2.5cm/< RPR S/N/AX/GEN/TRNK 2.5CM/< [facility] Start: 06-02-2023 [facility] Start: 03-02-2022 Blood chemistry [facility] Work Phone: Start: 02-23-2022 Blood chemistry [facility] Work Phone: Start: 02-20-2022 Patient discharge [facility] Start: 02-19-2022 Development of care plan [facility] Start: 02-19-2022 Contact precautions [facility] Start: 02-19-2022 [facility] Start: 02-17-2022 Referral to service [facility] Start: 02-16-2022 Blood chemistry [facility] Work Phone: Start: 02-11-2022 Application of device [facility] Start: 02-02-2022 Speech therapy management [facility] Start: 02-02-2022 Development of care plan [facility] Start: 02-02-2022 Verification routine [facility] Work Phone: Start: 02-02-2022 Developing a treatment plan [facility] Start: 02-02-2022 Application of intermittent pneumatic compression device [facility] Start: 02-02-2022 Speech therapy assessment [facility] Start: 02-02-2022 [facility] Start: 02-01-2022 Wound care [facility] Work Phone: Start: 02-01-2022 End: 02-01-2022 [facility] Start: 02-01-2022 Following clinical pathway protocol [facility] Start: 02-01-2022 Admission procedure [facility] Start: 02-01-2022 Measuring intake and output [facility] Start: 02-01-2022 Patient referral to dietitian [facility] Start: 02-01-2022 Referral to occupational therapist [facility] Start: 02-01-2022 Referral to service [facility] Start: 02-01-2022 Vital signs measurements [facility] Start: 02-01-2022 [facility] Start: 02-01-2022 Patient discharge [facility] Start: 02-01-2022 End: 02-01-2022 Administration of blood product [facility] Start: 02-01-2022 [facility] Start: 02-01-2022 Transfusion of red blood cells [facility] Start: 01-31-2022 Care planning and problem solving actions [facility] Start: 01-30-2022 [facility] Start: 01-29-2022 Following clinical pathway protocol [facility] Start: 01-29-2022 End: 01-29-2022 [facility] Start: 01-29-2022 Assessment of risk of venous thromboembolism [facility] Start: 01-29-[address] [facility] Start: 01-29-2022 Incentive spirometry [facility] Start: 01-29-2022 Insertion of catheter into peripheral vein [facility] Start: 01-29-2022 Measuring intake and output [facility] Start: 01-29-2022 Providing care according to standard [facility] Start: 01-29-2022 Provision of activity privileges [facility] Start: 01-29-2022 Referral to occupational therapist [facility] Start: 01-29-2022 Referral to service [facility] Start: 01-29-2022 Ambulation therapy management [facility] Start: 01-29-2022 Application of device [facility] Start: 01-29-2022 Exercises [facility] Start: 01-29-2022 Following clinical pathway protocol [facility] Start: 01-29-2022 Introduction of urinary catheter [facility] Start: 01-29-2022 Neurovascular assessment [facility] Start: 01-29-2022 Oxygen therapy [facility] Start: 01-29-2022 Patient education [facility] Start: 01-29-2022 Provision of activity privileges [facility] Start: 01-29-2022 Referral to occupational therapist [facility] Start: 01-29-2022 Referral to service [facility] Start: 01-29-2022 Vital signs measurements [facility] Start: 01-29-2022 Wound care [facility] Start: 01-29-2022 End: 01-29-2022 [facility] Start: 01-29-2022 Fluoroscopic guidance [facility] for C[facility] Work Phone: Start: 01-29-2022 Plain X-ray of hip Hip Min 2 Views (Portable) [facility] Work Phone: Start: 01-29-2022 Trochanteric Fixation Nail, Synthes (Right) Trochanteric Fixation Nail, Synthes (Right) [facility] Work Phone: Start: 01-29-2022 Consultation [facility] Start: 01-29-2022 Verification routine [facility] Work Phone: Start: 01-29-2022 Admission procedure [facility] Start: 01-29-2022 End: 01-29-2022 [facility] Start: 01-29-2022 Patient referral to dietitian [facility] Patient Education [facility] Work Phone: Patient referral [facility] Work Phone: Potassium [Moles/vol ume] in Serum or Plasma [facility] Work Phone: Respiratory microbia l culture Respiratory Culture [facility] Work Phone: Immunizations Immunization Date Immunization Notes Care Provider Fa ciliusman 05-13-2021 Shari (Moderna) Dr. Lucio Ayoub Work Phone: [facility] 12-04-2020 tetanus toxoid, redu jarad diphtheria toxoid, and acellular pertussis vaccine, adsorbed Dr. Lucio Ayoub Work Phone: [facility] Payers Date Payer Category Payer Medicaid [id number] 2023 Self-pay [id number] 2012 Medicare [id number] Unknown [id number] 2.16.8 [id number] Unknown [id number] 2.16.8 [id number] Unknown [id number] 2.16.8 [id number] Unknown [id number] 2.16.8 [id number] Unknown [id number] 2.16.8 [id number] Unknown [id number] 2.16.8 [id number] Unknown [id number] 2.16.8 [id number] Unknown [id number] 2.16.8 [id number] Unknown [id number] 2.16.8 [id number] Unknown [id number] 2.16.8 [id number] Unknown [id number] 2.16.8 [id number] Unknown [id number] 2.16.8 [id number] Unknown [id number] 2.16.8 [id number] Unknown [id number] 2.16.8 [id number] Social History Date Type Detail Facility Start: 04-09-2021 End: 06-02-2023 Tobacco smoking status NHIS Unknown if ever smoked [facility] Start: 1945 Sex Assigned At Female [facility] Start: 03-01-2024 End: 03-01-2024 Tobacco smoking status NHIS Never smoked tobacco (finding) [facility] Start: 05-24-2024 End: 06-02-2024 Sex Female (finding) [facility] NEGATED: Highlighted row [facility] Medical Equipment Procedure Code Equipment Code Equipment Origin al Text Equipment Identifier Dates X FDA Start: 01-29-2022 ([id number]) Orthopaedic bone screw, non-bioabsorbable, sterile [id number] FDA Start: 01-29-2022 Femur nail, sterile [id number] FDA Start: 01-29-2022 ([id number]) Spiral blade [id number] FDA Start: 01-29-2022 X FDA Start: 01-29-2022 X FDA Start: 01-29-2022 X FDA Start: 01-29-2022 X FDA Start: 01-29-2022 X FDA Start: 01-29-2022 X FDA Start: 01-29-2022 X FDA Start: 01-29-2022 X FDA Start: 01-29-2022 X FDA Start: 01-29-2022 Goals Date Patient Goal Desired Activity /State Functional Status Date Assessment Result Facility 02-20-2022 Functional status Ambulates [facility] Work Phone: 02-15-2022 Functional status Chair;Bathroom Privileg e [facility] Work Phone: 02-13-2022 Functional status Rolling Walker [facility] Work Phone: 02-01-2022 Functional status Ambulates;Bathroom Priv ilege [facility] Work Phone: Mental Status Date Assessment Result Facility 02-20-2022 Cognitive function Voice/Name [facility] Work Phone: 02-19-2022 Cognitive function Appropriate;Cooperativ e [facility] Work Phone: 02-15-2022 Cognitive function Voice/Name [facility] Work Phone: 02-10-2022 Cognitive function Appropriate;Cooperativ [facility] Work Phone: 02-01-2022 Cognitive function Voice/Name [facility] Work Phone: 09-12-2021 Cognitive function Level Of Cons ciousness Awake;Alert;Appropriate;Follow s Commands [facility] Work Phone: Evaluation note Note Date & Type Note Facility Evaluation note Diagnosis Onset Date Contusion of right knee acut e Strain of right knee acute [facility] Work Phone: Evaluation note Note Date & Type Note Facility Evaluation note Diagnosis Onset Date COVID-19 [facility] Work Phone: Evaluation note Note Date & Type Note Facility Evaluation note Diagnosis Onset Date Closed intertrochanteric fra cture of right hip acute Fall acute Thyroid disease [facility] Work Phone: Evaluation note Note Date & Type Note Facility Evaluation note Diagnosis Onset Date Closed intertrochanteric fra cture of right hip resolved Fall resolved Closed right hip fracture ac [facility] acute Hypothyroidism acute Iron deficiency anemia acute Closed right hip fracture ac [facility] S/P right hip fracture acute [facility] Work Phone: Evaluation note Note Date & Type Note Facility Evaluation note Diagnosis Onset Date Closed intertrochanteric fra cture of right hip resolved Fall resolved Closed right hip fracture ac [facility] acute Hypothyroidism acute Iron deficiency anemia acute Closed right hip fracture ac [facility] S/P right hip fracture acute S/P right hip fracture acute [facility] Work Phone: Evaluation note Note Date & Type Note Facility Evaluation note No assessment information availa ble [facility] Work Phone: Evaluation note Note Date & Type Note Facility Evaluation note Diagnosis Onset Date Resolution Carpal tunnel syndrome of right wrist noneactive August 01, 2024 9 :50am [facility] Work Phone: Reason for referral (narrative) Note Date & Type Note Facility Reason for referral (narrative) No reason for referral information available [facility] Work Phone: Summary Purpose Family History No Family History Records Found Relationship Condition Age at Onset Recorded Date/T esther mother Malignant neoplasm of breast Unknown sister Malignant neoplasm of breast Unknown sister Lymphoma Unknown Advance Directives No Advanced Directives Records Found Advance Directive Response Recorded Date/ Time Advance Directives No April 12, 2016 12:35pm Living Will No December 04, 2020 3:45pm Power of Paraeducator No November 3:45pm Advance Directive Response Recorded Date/ Time Advance Directives No April 12, 2016 12:35pm Living Will No September 12, 2021 4:58pm Power of Paraeducator No September 12 4:58pm Advance Directive Response Recorded Date/ Time Advance Directives No April 12, 2016 11:35am Living Will No January 29, 022 7:41am Power of Paraeducator No January 29, 2022 7:41am Advance Directive Response Recorded Date/ Time Advance Directives No January 8:19am Living Will No February 08, 2 022 8:19am Power of Paraeducator No February 08, 2022 8:19am Name of Medical Power of Paraeducator JOANIE HUGGINS February 01, 2022 9:34pm Advance Directive Response Recorded Date/ Time Advance Directives No January 9:19am Living Will No June 02, 2023 8:56am Power of Paraeducator No June 01 8:56am Advance Directive Response Recorded Date/ Time Living Will Yes August 22, 2023 2 :26pm Power of Paraeducator Yes August 22, 2023 2:26pm Advance Directives No January 8:19am Advance Directive Response Recorded Date/ Time Advance Directives No January 9:19am Chief Complaint and Reason for Visit Chief Complaint [facility] 19 REQ UIRED TESTING [facility]-C[facility] 19 REQUIRED TESTING RIGHT KNEE SWOLLEN, FELL ON ICE RIGHT KNEE PAIN [facility]-COVID 19 REQUIRED TESTING Reason for Visit Contusion of right k nee Strain of right knee Chief Complaint [facility] 19 REQ UIRED TESTING COVID TEST/SYMPTOMATIC UNSTEADINESS ON FEET.RX HERE RIB PAIN Reason for Visit COVID-19 Chief Complaint [facility] 19 REQ UIRED TESTING COVID TEST/SYMPTOMATIC RIB PAIN UNSTEADINESS ON FEET.RX HERE Reason for Visit COVID-19 Chief Complaint HIP FRACTURE/HYPOKAL EMIA HIP FRACTURE/HYPOKALEMIA HIP FRACTURE/HYPOKALEMIA Reason for Visit Closed intertrochant siddhartha fracture of right hip Fall Thyroid disease Chief Complaint HIP FRACTURE/HYPOKAL EMIA HIP FRACTURE/HYPOKALEMIA HIP FRACTURE/HYPOKALEMIA HIP FRACTURE/HYPOKALEMIA HIP FRACTURE/HYPOKALEMIA HIP FRACTURE/HYPOKALEMIA HIP FRACTURE/HYPOKALEMIA HIP FRACTURE, HYPOKALEMIA RIGHT HIP PAIN IN RIGHT LOWER LEG Reason for Visit Closed intertrochant siddhartha fracture of right hip Fall Closed right hip fracture Debility Hypothyroidism Iron deficiency anemia Closed right hip fracture S/P right hip fracture Chief Complaint HIP FRACTURE/HYPOKAL EMIA HIP FRACTURE/HYPOKALEMIA HIP FRACTURE/HYPOKALEMIA POSTOP HIP FRACTURE/HYPOKALEMIA HIP FRACTURE/HYPOKALEMIA HIP FRACTURE/HYPOKALEMIA HIP FRACTURE/HYPOKALEMIA HIP FRACTURE, HYPOKALEMIA RIGHT HIP PAIN IN RIGHT LOWER LEG RIGHT HIP Room 4 Reason for Visit Closed intertrochant siddhartha fracture of right hip Fall Closed right hip fracture Debility Hypothyroidism Iron deficiency anemia Closed right hip fracture S/P right hip fracture S/P right hip fracture Chief Complaint LAC Chief Complaint LAC SCREENING Chief Complaint LAC SCREENING Low back pain, unspecified Chief Complaint Admit Date PAIN IN RIGHT HAND January 25, 2024 1 :23pm PAIN IN RIGHT HAND January 25, 2024 2 :49pm MILD COGN IMPAIR/APHASIA. RX HERE RT HIP FX,RT CTS April 24, 2024 1:30pm Chief Complaint Admit Date MILD COGN IMPAIR/APHASIA. RX HERE RT HIP FX,RT CTS April 24, 2024 1:30pm Chief Complaint Admit Date MILD COGN IMPAIR/APHASIA. RX HERE RT HIP FX,RT CTS April 24, 2024 1:30pm NEEDS ORDER July 16, 2024 3:0 5pm RIGHT HAND August 01, 2024 9:50a m Reason for Visit Admit Date Carpal tunnel syndrome of right wrist Ma y 2024 9:50am Additional Source Comments INFORMATION SOURCE (unrecogn ized section and content) DATE CREATED AUTHOR 05/17/2020 [facility] DATE CREATED AUTHOR AUTHOR'S ORGANIZ ATION 08/01/2024 [facility] Goals (unrecognized section and content) Goals may be documented in a n alternate sectionGoals may be documented in an alternate sectionGoals may be documented in an alternate sectionGoals may be documented in an alternate sectionGoals may be documented in an alternate sectionGoals may be documented in an alternate sectionGoals may be documented in an alternate sectionGoals may be documented in an alternate sectionGoals may be documented in an alternate sectionGoals may be documented in an alternate sectionGoals may be documented in an alternate section Care Teams (unrecognized sec tion and content) Team Status: Active Member Role Status Dates Dr. Lucio Ayoub MD Family Provider Active Dr. Lucio Ayoub MD Primary Care Provider Active Team Status: Active Member Role Status Dates Dr. Lucio Ayoub MD Primary Care Provider Active Dr. Siddhartha Bliss , DO Emergency Provider Active Dr. Rossy Saleem MD Admit Provider, Other Provider Act manpreet Dr. Braxton Salas , DO Attending Provider Active Team Status: Active Member Role Status Dates Dr. Lucio Ayoub MD Primary Care Provider Active Dr. Siddhartha Bliss , DO Emergency Provider Active Dr. Rossy Saleem MD Admit Provider, Atte nding Provider, Other Provider Active Team Status: Active Member Role Status Dates Dr. Lucio Ayoub MD Primary Care Provider Active Dr. Siddhartha Bliss , DO Emergency Provider Active Dr. Rossy Saleem MD Admit Provider, Other Provider Act manpreet Dr. Braxton Salas , DO Other Provider Active Artem Pina MD Attending Provider Active Team Status: Active Member Role Status Dates Dr. Lucio Ayoub MD Primary Care Provider Active Dr. Siddhartha Bliss , DO Emergency Provider Active Dr. Rossy Saleem MD Admit Provider, Atte nding Provider, Other Provider Active Dr. Braxton Salas , DO Other Provider Active Team Status: Active Member Role Status Dates Dr. Lucio Ayoub MD Primary Care Provider Active Dr. Siddhartha Bliss , DO Emergency Provider Active Dr. Rossy Saleem MD Admit Provider, Other Provider Act manpreet Dr. Braxton Salas , DO Other Provider Active Dr. Trina Crawford , DO Attending Provider, Other Provide r Active Team Status: Inactive Member Role Status Dates Dr. Lucio Ayoub MD Primary Care Provider, Referring Provider Active MARGARITA Barrera Attending Provider Active Team Status: Active Member Role Status Dates Dr. Lucio Ayoub MD Primary Care Provider Active Dr. Darinel John MD Attending Provider Active MARGARITA Barrera Referring Provider Active Team Status: Inactive Member Role Status Dates Dr. Lucio Ayoub MD Primary Care Provider, Referring Provider Active Dr. Braxton Salas DO Attending Provider Active Team Status: Inactive Member Role Status Dates Dr. Lucio Ayoub MD Primary Care Provider Active Dr. Alli Montgomery MD Attending Provider Active Team Status: Active Member Role Status Dates Dr. Lucio Ayoub MD Primary Care Provider Active Dr. David Pisano MD Attending Provider Active Dr. Rossy Saleem MD Referring Provider Active Team Status: Inactive Member Role Status Dates Dr. Lucio Ayoub MD Primary Care Provider Active Dr. Siddhartha Bliss DO Emergency Provider Active Dr. Rossy Saleem MD Admit Provider, Other Provider Act manpreet Dr. Braxton Salas DO Other Provider Active Dr. Trina Crawford DO Attending Provider Active Team Status: Inactive Member Role Status Dates Dr. Lucio Ayoub MD Primary Care Provi garima, Admit Provider, Attending Provider Active Team Status: Inactive Member Role Status Dates Dr. Lucio Ayoub MD Primary Care Provider Active MARGARITA Barrera Attending Provider Active Team Status: Inactive Member Role Status Dates Dr. Lucio Ayoub MD Primary Care Provider, Attending Provider Active Team Status: Inactive Member Role Status Dates Dr. Lucio Ayoub MD Primary Care Provider Active Dr. Siddhartha Bliss DO Emergency Provider Active Team Status: Inactive Member Role Status Dates Dr. Lucio Ayoub MD Primary Care Provider Active Dr. Siddhartha Bliss DO Attending Provider, Emergency P neo Active Team Status: Inactive Member Role Status Dates Dr. Lucio Ayoub MD Primary Care Provi garima, Attending Provider, Referring Provider Active Team Status: Inactive Member Role Status Dates Dr. Lucio Ayoub MD Primary Care Provider Active Start: January 25, 2024 End: January 25, 2024 Ronnell AVILA PA-C Attending Provider Active Start: January 25, 2024 End: January 25, 2024 Ronnell AVILA PA-C Referring Provider Active Start: January 25, 2024 End: January 25, 2024 Team Status: Active Member Role Status Dates Dr. Lucio Ayoub MD Primary Care Provider Active Start: January 25, 2024 Ronnell AVILA PA-C Referring Provider Active Start: January 25, 2024 Ronnell AVILA PA-C Other Provider Active Star t: January 25, 2024 Dr. Rosario Cisneros MD Attending Provider Active S tart: January 25, 2024 Team Status: Inactive Member Role Status Dates Dr. Lucio Ayoub MD Primary Care Provider Active Start: April 06, 2024 End: April 06, 2024 Dr. Lucio Ayoub MD Attending Provider Active Start: April 06, 2024 End: April 06, 2024 Team Status: Inactive Member Role Status Dates Dr. Lucio Ayoub MD Primary Care Provider Active Start: April 24, 2024 End: April 24, 2024 Dr. Lucio Ayoub MD Attending Provider Active Start: April 24, 2024 End: April 24, 2024 Dr. Lucio Ayoub MD Referring Provider Active Start: April 24, 2024 End: April 24, 2024 Team Status: Active Member Role Status Dates Dr. Lucio Ayoub MD Primary Care Provider Active Start: May 22, 2024 Dr. Lucio Ayoub MD Attending Provider Active Start: May 22, 2024 Team Status: Active Member Role Status Dates Dr. Lucio Ayoub MD Primary Care Provider Active Team Status: Inactive Member Role Status Dates Dr. Lucio Ayoub MD Primary Care Provider Active Start: May 22, 2024 End: May 22, 2024 Dr. Lucio Ayoub MD Attending Provider Active Start: May 22, 2024 End: May 22, 2024 Team Status: Inactive Member Role Status Dates Dr. Lucio Ayoub MD Primary Care Provider Active Start: July 16, 2024 End: July 16, 2024 Dr. Lucio Ayoub MD Attending Provider Active Start: July 16, 2024 End: July 16, 2024 Dr. Lucio Ayoub MD Referring Provider Active Start: July 16, 2024 End: July 16, 2024 Team Status: Inactive Member Role Status Dates Dr. Lucio Ayoub MD Primary Care Provider Active Start: August 01, 2024 End: August 01, 2024 Dr. Lucio Ayoub MD Referring Provider Active Start: August 01, 2024 End: August 01, 2024 Dr. Braxton Salas DO Attending Provider Active Start: August 01, 2024 End: August 01, 2024 FOR RECORDS PERTAINING TO PATIENTS WHO ARE [...] BE BASED ON THE PRIMARY CLINICAL RECORDS. [facility] [employer] [facility]. provides no warranty or guarantee of the accuracy or completeness of information in this document.
--- NOTE | 2024-09-23 01:02 | EKG12_ITS ---
Test Reason : HIP PAIN Blood Pressure : */* mmHG Vent. Rate : 81 BPM Atrial Rate : 81 BPM P-R Int : 178 ms QRS Dur : 78 ms QT Int : 384 ms P-R-T Axes : 72 9 76 degrees QTcB Int : 446 ms Normal sinus rhythm Normal ECG Confirmed by KAYLEE WARE, GO ([id number]), senior technical editor LEANNE MURRAY ([id number]) on 09/24/2024 10:57:46 AM Referred By: Confirmed By: GO PAGE MD
--- NOTE | 2024-09-23 01:02 | RAD_ITS ---
PROCEDURE: CHEST 1 VIEW (PORTABLE) 09/23/2024 REASON FOR EXAM: PREOP TECHNIQUE: Frontal view of the chest. COMPARISON: 01/29/2022 FINDINGS: Rotated patient. Slight under aeration at the lung bases. Possible small posterior right effusion. No consolidation, or pneumothorax. RAD/Chest 1 View (Portable) IMPRESSION: Under aerated lung bases. Possible small right effusion. Reading Location: [facility]-
[2024-09-23] MEDS: 0.9% Normal Saline (500mL Bag) 500 ML 999 ML IV (01:14)
--- NOTE | 2024-09-23 01:26 | RAD_ITS ---
PROCEDURE: HIP, UNI W/ PELVIS 2-3 VIEWS 09/23/2024 REASON FOR EXAM: LEFT HIP PAIN TECHNIQUE: HIP, UNI W/ PELVIS 2-3 VIEWS COMPARISON: 08/22/2023 FINDINGS: Lower lumbar spine degeneration. Intact pelvic ring. Remote right femur injury status post repair. Acute left intertrochanteric femoral neck fracture, medial impaction and angulation. Mild displacement. Mild left hip osteoarthritis. No dislocation. RAD/HIP, UNI W/ Pelvis 2-3 Views IMPRESSION: Acute left intertrochanteric femoral neck fracture. Reading Location: [place] [id number]
[2024-09-23 01:32] LABS: Hematocrit 34.6 % (37-47); Hemoglobin 11.3 g/dL (12.0-15.0); Mean Corp Hgb Conc 32.7 g/dL (32-36); Mean Corpuscular Volume 89.9 fL (81-99); Mean Platelet Vol. 9.7 fl (6.2-12.0); Platelet Count 265 K/mm3 (150-450); RBC Distribution Width CV 13.5 % (11.6-14.6); RBC Distribution Width SD 44.6 fl (35.1-43.9); Red Blood Count 3.85 M/mm3 (4.2-5.4); White Blood Count 9.9 K/mm3 (4.4-11.0)
[2024-09-23] MEDS: HYDROmorphone 0.5 MG/0.5 ML SYRINGE IV ×5 (01:56→17:57)
[2024-09-23 02:02] LABS: Anion Gap 10 (5-15); BUN 14 mg/dL (4-19); BUN/Creat Ratio 18.5 RATIO (10-20); Calcium,Total 8.7 mg/dL (7.6-11.0); Carbon Dioxide 20.2 mmol/L (21.0-32.0); Chloride 109 mmol/L (98-108); Estimated Creatinine Clearance 58.39 ml/min (50-250); Glucose 136 mg/dL (70-99); Potassium 3.7 mmol/L (3.3-5.1)
--- NOTE | 2024-09-23 02:42 | PCM.HP.STD ---
[facility] - General General Date of Service: 09/23/24 Chief Complaint: Left Hip Fracture after Fall at [facility]. HPI Narrative NICOLE BOND, is a 79 F with a past medical history of hypothyroidism; on levothyroxine, mild cognitive impairment, history of iron deficiency anemia, GERD; on pantoprazole and OA; s/p right hip fracture with subsequent ORIF by Dr. Petersen of the orthopedic service who presents to [facility] ER complaining of Left hip fracture after fall at [facility]CF. Ms. Bond reports her symptoms began just prior to admission when she lost her balance and fell onto her Left hip with subsequent inability to ambulate. She denies significant head trauma or LOC with her fall. There was no reported fever, chills, nausea, vomiting, diarrhea, constipation, chest pain, palpitations, heart racing, shortness of breath, cough, dysuria, hematuria headache or rash. In the ER she was noted to have x-ray evidence of Acute Left intertrochanteric Femoral Neck Fracture with the ER physician speaking to orthopedic surgeon on-call who recommended admission to the hospitalist service with plan for ORIF on Tuesday, August 25, 2024 with help appreciated in advance. FOR[facility]LY [facility], [facility] Medical History Frontal dementia Contusion of right knee Strain of right knee Hemorrhoids Family history of breast cancer Thyroid disease Breast mass, right Abnormal mammogram of right breast Home Medications ?Medication ?Instructions ?Recorded ?Last Taken ?Type levothyroxine 75 mcg tablet 75 mcg PO DAILY THYROID 03/11/20 Unknown History pantoprazole 40 mg tablet,delayed 40 mg PO DAILY GERD 09/23/24 Unknown History release Allergy/AdvReac Type Severity Reaction Status Date / Time No Known Allergies Allergy Verified 08/01/24 09:56 Family History Mother Breast cancer Sister Breast cancer Sister Lymphoma Surgical History History of right breast biopsy (~03/2020) History of partial hysterectomy Social History household members: none Smoking Status: Never smoker second hand exposure: No alcohol intake: never substance use type: does not use ROS ROS Narrative Review of Systems: Constitutional: Patient denies fever or chills. Eyes: Patient denies changes vision or discharge from eyes. ENT: Patient denies runny nose, sore throat or ear pain. Resp: Patient denies shortness of breath or cough. CV: Patient denies chest pain, palpitations or heart racing. GI: Patient denies abdominal pain, nausea, vomiting, diarrhea or constipation. : Patient denies dysuria, hematuria or urinary frequency. MSK: Patient admits to persistent Left hip pain since recent fall. Skin: Patient denies rash, abscess, wounds or jaundice. Psych: Patient denies symptoms well-controlled depression or anxiety. Neuro: Patient denies headache, paresthesias or focal neurologic deficits. Allergy: Patient denies lip swelling, tongue swelling or urticaria. Hematology: Patient denies easy bleeding or easy bruisability. Endocrinology: Patient denies polyuria, polydipsia, polyphagia or heat/cold intolerance. 14 point ROS otherwise negative save for positives noted above in HPI. Vital Signs Vital Signs Vital Signs: 09/23/24 00:28 09/23/24 02:28 Temperature 97.7 F L Temperature Source Oral Pulse Rate 81 93 Respiratory Rate 19 H 18 Blood Pressure 155/63 H 156/71 H Blood Pressure Mean 93 99 Pulse Ox 99 94 Oxygen Delivery Method Room Air Room Air Weight Weight: 161 lb 6.054 oz Body Mass Index (BMI) 25.9 Physical Exam Const alert, oriented x3 and average body habitus Constitutional Narrative: Mild distress noted. General Appearance: cooperative HEENT normocephalic, head/scalp atraumatic, hearing grossly normal bilaterally and moist oral mucous membranes Eyes PERRL, EOMs intact bilaterally and conjunctivae normal Neck no lymphadenopathy, supple and no JVD Resp normal respiratory effort, no retractions, no use of accessory muscles and clear to auscultation bilaterally Cardio regular rate and regular rhythm GI normal to inspection, nondistended, normoactive bowel sounds, soft to palpation, non-tender and non-distended Extremity Extremity Narrative: LLE shortened and externally rotated with no signs of vascular compromise. +2/4 pulses noted throughout with intact sensation. Skin Skin Narrative: Patient has no evidence of rash, abscess, wounds or jaundice. Neuro oriented x3, CN's II-XII intact bilaterally, moves all extremities and no focal motor deficits Sensorium / Orientation: awake, alert, oriented to person, oriented to place and oriented to time Speech: speech normal Psych affect normal Results Medical Records Data Attestation: I reviewed the patient's medical records Lab / Micro Data 09/23/24 01:20 09/23/24 01:20 Labs: Laboratory Results - last 24 hr 09/23/24 01:20: WBC 9.9, RBC 3.85 L, Hgb 11.3 L, Hct 34.6 L, MCV 89.9, MCH 29.4, MCHC 32.7, RDW Std Deviation 44.6 H, RDW Coeff of Rosita 13.5, Plt Count 265, MPV 9.7, Sodium 139, Potassium 3.7, Chloride 109 H, Carbon Dioxide 20.2 L, Anion Gap 10, BUN 14, Creatinine 0.73, Estim Creat Clear Calc 58.39, Est GFR (MDRD) Non-Af 84, BUN/Creatinine Ratio 18.5, Glucose 136 H, Calcium 8.7 Imaging Radiology Impression Chest X-Ray 09/23/24 01:02 IMPRESSION: Under aerated lung bases. Possible small right effusion. Reading Location: [facility] Hip/Pelvis X-Ray 09/23/24 01:26 IMPRESSION: Acute left intertrochanteric femoral neck fracture. Reading Location: [facility] Assessment & Plan Assessment/Plan (1) Closed left hip fracture: QUALIFIERS: Encounter type: initial encounter Qualified Code(s): S72.002A - Fracture of unspecified part of neck of left femur, initial encounter for closed fracture (2) Fall: QUALIFIERS: Encounter type: initial encounter Qualified Code(s): W19.XXXA - Unspecified fall, initial encounter (3) Mild cognitive impairment: (4) S/P right hip fracture: (5) Hypothyroidism: QUALIFIERS: Hypothyroidism type: unspecified Qualified Code(s): E03.9 - Hypothyroidism, unspecified PLAN: Plan 1. Acute Left intertrochanteric Femoral Neck Fracture - Admit to general medical floor. Patient has no absolute contraindications to medically-necessary medium risk orthopedic surgery. Give acetaminophen as needed for [id number] (level 1-5/10) pain or fever. Give hydromorphone 0.5 mg IV every 4 hours as needed for severe (level 6-10/10) pain. 2. Mild cognitive impairment - Stable. 3. OA; s/p Right hip fracture with subsequent ORIF by Dr. Petersen of the orthopedic service - Stable. We will follow pain regimen and scales outlined in #1. 4. Hypothyroidism; on levothyroxine - Continue levothyroxine check TSH. 5. History of iron deficiency anemia - Stable with hemoglobin of 11.3 g/dL and MCV of 89.9 fL present on admission. 6. GERD; on pantoprazole - Maintain PPI. 7. DVT prophylaxis - Start low-dose heparin 5,000 units subcu twice daily plus RLE SCD since there will be a minor delay in surgery due to holiday weekend. Total time: Approximately (but not less than) 55 minutes. Charges/Coding Visit Charges Inpatient E&M: 26603 Init Hosp L2
--- OUTSIDE RECORDS SUMMARY | 2024-09-23 03:23 | XMS RPT_ITS | CCD ---
Author Organization [facility] CliniSysd Care Team Providers Care [employer] Math Tutor Name Role Phone Dr. Lucio Ayoub Chi Primary Care Provider Dr. Lucio Ayoub Chi Referring Provider MARGARITA Bronson Attending Provider MARGARITA Bronson Referring Provider Dr. Alli Montgomery Attending Provider 1([facility])[phone] Lucio Ayoub Chi Primary Care Provider 1([facility])[phone] Dr. Lucio Ayoub Chi Referring Provider 1([facility])[phone] MARGARITA Trejo Attending Provider [phone] Lucio Ayoub Chi Primary Care Provider [phone] Siddhartha Bliss Emergency Provider 1([facility])[phone] [facility] Attending Provider 1([facility])[phone] Rossy Saleem Other Provider Dr. Braxton Salas Attending Provider 1([facility])[phone] Dr. Braxton Salas Other Provider 1([facility])[phone] MD Artem Pina Attending Provider Dr. Trina Crawford Attending Provider Dr. Trina Crawford Other Provider Dr. Lucio Ayoub Chi Referring Provider Pablo AVILA PA Carlos Attending Provider Dr. Darinel John Attending Provider 1([facility])[phone] Dr. David Pisano Attending Provider 1([facility])[phone] Dr. Rossy Saleem Referring Provider MARGARITA Sunshine Referring Provider [phone] Alli Montgomery Attending Provider Mega WARE, Dr. Lucio Saxena Primary Care Provider [phone] Corie BRADFORD, Ronnell Attending Provider Corie BRADFORD, Ronnell Referring Provider Corie BRADFORD, Ronnell Other Provider Blayne WARE, Dr. Ponce Attending Provider Mega WARE, Dr. Lucio Saxena Attending Provider Mega WARE, Dr. Lucio Saxena Referring Provider Mega WARE, Dr. Lucio Saxena Primary Care Provider Mega WARE, Dr. Lucio Saxena Attending [...] Unavailable Mega, Lucio Chi Primary Care Unavailable Tomym Huff Attending Unavailable Mega, Lucio Chi Primary [...] for 5 days PO polyethylene glycol 3350 79179 mg powder for oral solution (9 sources) [...] 7:29pm docusate sodium 50 mg / sennosides, custodial 8.6 mg oral tablet (9 sources) Start: [...] Start: 03-24-2022 End: 09-20-2022 Miscellaneous Medical [facility] [place] 1 NMA MC .PRN as needed [...] Facility Orthopedic Visit Reporton Orthopedic Visit Report [facility] [address] [place] [address] [address] [place] [address] OFFICE VISIT Date of Service: 08/01/24 MR#: [id number] Acct: [id number] Name: JAEL HUGGINS Rep #: [id number] : 1945 Provider: Dr. Braxton wayne DO Age/Sex: 78/F Location: [facility] Status: Signed Intake Vital Signs 01/03/24 10:36 [...] you fallen in the past year?: Yes [facility] Medical History Contusion of right knee Strain [...] but they didn't work. She went to [facility] for her hand. They had her [...] Carpal tunne (more content not included)... Normal [facility] TSH DL <= 0.005 mIU/L QnOrde red By: Lucio Ayoub on 07-16-2024 TSH Qn 9.610 uIU/mL High 0.300-4.200 [facility] Thyroid Stim Hormone (TSH)on 07-16-2024 TSH 9.610 uIU/mL High 0.300-4.200 [facility] Comment on above: Performed By: #### L 501.9520 #### [facility] Laboratory [address] [place], [place], [id number] Absolute lymphocyte countOrd ered By: Lucio Ayobu on 05-22-2024 Lymphocytes Auto (Unsp spec) [#/Vol] 2.10 10*3/uL 0.83-4.51 [facility] Absolute neutrophil countOrd ered By: Lucio Ayoub on 05-22-2024 Neutrophils (Bld) [#/Vol] 4.8 10*3/uL 2.0-7.7 [facility] Anion gap in Serum or Plasma Ordered By: Lucio Ayoub on 05-22-2024 Anion gap [Moles/Vol] 14 mmol/L 5- [facility] Automated lymphocyte count a s percentage of total leukocytesOrdered By: Lucio Ayoub on 05-22-2024 Lymphocytes/100 WBC Auto (Unsp spec) 27.2 % - [facility] BUN/creatinine ratioOrdered By: Lucio Mega on 05-22-2024 Urea nitrogen/Creatinine [Mass ratio] 15.2 mg/mg 10- [facility] Basophil percentageOrdered B y: Lucio Ayoub on 05-22-2024 Basophils/100 WBC (Bld) 0.5 % 0-1 [facility] Bilirubin, totalOrdered By: Lucio Ayoub on 05-22-2024 Bilirubin [Mass/Vol] 0.27 mg/dL 0.00-1.30 [facility] CBC W/Diff, Automatedon Absolute Lymph 2.10 X10 3/uL Normal 0.83-4.51 [facility] Comment on above: Performed By: #### L 100.0100, L500.4100, L501.9520, L500.4050, L506.1001 ####[facility] [address] [place], [address] Absolute Neut 4.8 X10 3/uL Normal 2.0-7.7 [facility] Comment on above: Performed By: #### L 100.0100, L500.4100, L501.9520, L500.4050, L506.1001 ####[facility] [address] [place], [address] Basophils/100 WBC (Bld) 0.5 % Normal 0-1 [facility] Comment on above: Performed By: #### L 100.0100, L500.4100, L501.9520, L500.4050, L506.1001 ####[facility] [address] [place], [address] Eosinophils/100 WBC (Bld) 2.6 % Normal 0-5 [facility] Comment on above: Performed By: #### L 100.0100, L500.4100, L501.9520, L500.4050, L506.1001 ####[facility] [address] [place], [address] Erythrocyte distribution width (RBC) [Ratio] 13.2 % Normal 11.6-14.6 [facility] Comment on above: Performed By: #### L 100.0100, L500.4100, L501.9520, L500.4050, L506.1001 ####[facility] [address] [place], [address] Hematocrit (Bld) [Volume fraction] 40.2 % Normal 37-47 [facility] Comment on above: Performed By: #### L 100.0100, L500.4100, L501.9520, L500.4050, L506.1001 ####[facility] [address] [place], [address] Hemoglobin (Bld) [Mass/Vol] 13.1 g/dL Normal 12.0-15.0 [facility] Comment on above: Performed By: #### L 100.0100, L500.4100, L501.9520, L500.4050, L506.1001 ####[facility] [address] [place], [address] IG% 0.400 Normal 0.0-0.9 [facility] Comment on above: Result Comment: IG% - Immature Granulocytes (promyelocytes, myelocytes and metamyelocytes) > 1% indicates that a LEFT SHIFT is Present. Performed By: #### L 100.0100, L500.4100, L501.9520, L500.4050, L506.1001 ####[facility] [address] [place], [address] Lymphocytes/100 WBC (Bld) 27.2 % Normal 19-41 [facility] Comment on above: Performed By: #### L 100.0100, L500.4100, L501.9520, L500.4050, L506.1001 ####[facility] [address] [place], [address] MCH (RBC) [Entitic mass] 29.8 pg Normal 27.0-32.0 [facility] Comment on above: Performed By: #### L 100.0100, L500.4100, L501.9520, L500.4050, L506.1001 ####[facility] [address] [place], [address] MCHC (RBC) [Mass/Vol] 32.6 g/dL Normal 32-36 [facility] Comment on above: Performed By: #### L 100.0100, L500.4100, L501.9520, L500.4050, L506.1001 ####[facility] [address] [place], [address] MCV (RBC) [Entitic vol] 91.6 fL Normal 81-99 [facility] Comment on above: Performed By: #### L 100.0100, L500.4100, L501.9520, L500.4050, L506.1001 ####[facility] [address] [place], [address] Monocytes/100 WBC (Bld) 7.1 % Normal 0-10 [facility] Comment on above: Performed By: #### L 100.0100, L500.4100, L501.9520, L500.4050, L506.1001 ####[facility] [address] [place], [address] Neutrophils/100 WBC (Bld) 62.2 % Normal 47-70 [facility] Comment on above: Performed By: #### L 100.0100, L500.4100, L501.9520, L500.4050, L506.1001 ####[facility] [address] [place], [address] Nucleated RBC (Bld) [#/Vol] 0 10*3/uL Normal 0-5 [facility] Comment on above: Performed By: #### L 100.0100, L500.4100, L501.9520, L500.4050, L506.1001 ####[facility] [address] [place], [address] Platelet mean volume (Bld) [Entitic vol] 10.0 fL Normal 6.2-12.0 [facility] Comment on above: Performed By: #### L 100.0100, L500.4100, L501.9520, L500.4050, L506.1001 ####[facility] [address] [place], [address] Platelets (Bld) [#/Vol] 321 10*3/uL Normal 150-450 [facility] Comment on above: Performed By: #### L 100.0100, L500.4100, L501.9520, L500.4050, L506.1001 ####[facility] [address] [place], [address] RBC (Bld) [#/Vol] 4.39 10*6/uL Normal 4.2-5.4 [facility] Comment on above: Performed By: #### L 100.0100, L500.4100, L501.9520, L500.4050, L506.1001 ####[facility] [address] [place], [address] RDW SD 44.6 fl High 35.1-43.9 [facility] Comment on above: Performed By: #### L 100.0100, L500.4100, L501.9520, L500.4050, L506.1001 ####[facility] [address] [place], [place], [id number] WBC (Bld) [#/Vol] 7.7 10*3/uL Normal 4.4-11.0 [facility] Comment on above: Performed By: #### L 100.0100, L500.4100, L501.9520, L500.4050, L506.1001 ####[facility] [address] [place], [place], [id number] Calculated very low density lipoprotein (VLDL) cholesterol measurementOrdered By: Lucio Ayoub on 05-22-2024 Calculated very low density lipoprotein (VLDL) cholesterol measurement 32 mg/dL 5-40 [facility] VLDL Cholesterol 32 mg/dL 5-40 [facility] Carbon dioxide, total [Moles /volume] in Central venous bloodOrdered By: Lucio Ayoub on 05-22-2024 CO2 [Moles/Vol] 20.1 mmol/L Low 21.0-32.0 [facility] Chloride assayOrdered By: Adriano Ayoub on 05-22-2024 Chloride [Moles/Vol] 106 mmol/L 98-108 [facility] Comprehensive Metabolic Prof ilon 05-22-2024 Albumin [Mass/Vol] 4.1 g/dL Normal 3.4-4.8 [facility] Comment on above: Performed By: #### L 100.0100, L500.4100, L501.9520, L500.4050, L506.1001 ####[facility] [address] [place], [place], [id number] Albumin/Globulin [Mass ratio] 1.4 {ratio} Normal 0.9-2.4 [facility] Comment on above: Performed By: #### L 100.0100, L500.4100, L501.9520, L500.4050, L506.1001 ####[facility] [address] [place], [address] ALK PHOS 165 U/L High 35-104 [facility] Comment on above: Performed By: #### L 100.0100, L500.4100, L501.9520, L500.4050, L506.1001 ####[facility] [address] [place], [address] ALT [Catalytic activity/Vol] 26 U/L Normal <=34 [facility] Comment on above: Performed By: #### L 100.0100, L500.4100, L501.9520, L500.4050, L506.1001 ####[facility] [address] [place], [address] AST [Catalytic activity/Vol] 24 U/L Normal <=31 [facility] Comment on above: Performed By: #### L 100.0100, L500.4100, L501.9520, L500.4050, L506.1001 ####[facility] [address] [place], [address] Bilirubin [Mass/Vol] 0.27 mg/dL Normal 0.00-1.30 [facility] Comment on above: Performed By: #### L 100.0100, L500.4100, L501.9520, L500.4050, L506.1001 ####[facility] [address] [place], [address] BUN/CRE 15.2 RATIO Normal 10-20 [facility] Comment on above: Performed By: #### L 100.0100, L500.4100, L501.9520, L500.4050, L506.1001 ####[facility] [address] [place], [address] Calcium [Mass/Vol] 9.5 mg/dL Normal 7.6-11.0 [facility] Comment on above: Performed By: #### L 100.0100, L500.4100, L501.9520, L500.4050, L506.1001 ####[facility] [address] [place], [address] Chloride [Moles/Vol] 106 mmol/L Normal 98-108 [facility] Comment on above: Performed By: #### L 100.0100, L500.4100, L501.9520, L500.4050, L506.1001 ####[facility] [address] [place], [address] CO2 [Moles/Vol] 20.1 mmol/L Low 21.0-32.0 [facility] Comment on above: Performed By: #### L 100.0100, L500.4100, L501.9520, L500.4050, L506.1001 ####[facility] [address] [place], [address] Creatinine [Mass/Vol] 0.75 mg/dL Normal 0.70-1.20 [facility] Comment on above: Performed By: #### L 100.0100, L500.4100, L501.9520, L500.4050, L506.1001 ####[facility] [address] [place], [address] GAP 14 Normal 5-15 [facility] Comment on above: Performed By: #### L 100.0100, L500.4100, L501.9520, L500.4050, L506.1001 ####[facility] [address] [place], [address] GFR/1.73 sq M.predicted among non-blacks MDRD (S/P/Bld) [Vol rate/Area] 81 mL/min/{1.73_m2} Normal >60 [facility] Comment on above: Result Comment: mL/m in/1.73m2 CKD-EPI Creatinine Equation (2020) Performed By: #### L 100.0100, L500.4100, L501.9520, L500.4050, L506.1001 ####[facility] [address] [place], [address] Globulin (S) [Mass/Vol] 2.9 g/dL Normal 2.2-4.2 [facility] Comment on above: Performed By: #### L 100.0100, L500.4100, L501.9520, L500.4050, L506.1001 ####[facility] [address] [place], [address] Glucose [Mass/Vol] 147 mg/dL High 70-99 [facility] Comment on above: Performed By: #### L 100.0100, L500.4100, L501.9520, L500.4050, L506.1001 ####[facility] [address] [place], [address] Potassium [Moles/Vol] 3.8 mmol/L Normal 3.3-5.1 [facility] Comment on above: Performed By: #### L 100.0100, L500.4100, L501.9520, L500.4050, L506.1001 ####[facility] [address] [place], [address] Sodium [Moles/Vol] 140 mmol/L Normal 133-145 [facility] Comment on above: Performed By: #### L 100.0100, L500.4100, L501.9520, L500.4050, L506.1001 ####[facility] [address] [place], [address] T PROT 7.0 g/dL Normal 5.9-8.4 [facility] Comment on above: Performed By: #### L 100.0100, L500.4100, L501.9520, L500.4050, L506.1001 ####[facility] [address] [place], [address] Urea nitrogen [Mass/Vol] 11 mg/dL Normal 4-19 [facility] Comment on above: Performed By: #### L 100.0100, L500.4100, L501.9520, L500.4050, L506.1001 ####[facility] [address] [place], [address] Eosinophil percentageOrdered By: Lucio Ayoub on 05-22-2024 Eosinophils/100 WBC (Bld) 2.6 % 0-5 [facility] Erythrocyte distribution wid th ratioOrdered By: Lucio Ayoub on 05-22-2024 Erythrocyte distribution width (RBC) [Ratio] 13.2 % 11.6-14.6 [facility] Erythrocyte distribution wid th standard deviationOrdered By: Lucio Ayoub on 05-22-2024 Erythrocyte distribution width (RBC) [Entitic vol] 44.6 fL High 35.1-43.9 [facility] Erythrocyte distribution width (RBC) [Ratio] 44.6 fl High 35.1-43.9 [facility] GFR/1.73 sq M.predicted shivani g non-blacks MDRD (S/P/Bld) [Vol rate/Area]Ordered By: Lucio Ayoub 05-22-2024 Estimated GFR (MDRD) Non-Af Amer 81 >60 [facility] Comment on above: mL/min/1.73m2 CKD-EP I Creatinine Equation (2020) Glomerular filtration rate ( GFR) estimation/1.73 sq m using serum, plasma, or whole bOrdered By: Lucio Ayoub 05-22-2024 GFR/1.73 sq M.predicted among non-blacks MDRD (S/P/Bld) [Vol rate/Area] 81 mL/min/{1.73_m2} >60 [facility] Comment on above: mL/min/1.73m2 CKD-EP I Creatinine Equation (2020) Hematocrit Auto (Bld) [Volum e fraction]Ordered By: Lucio Ayoub 05-22-2024 Hematocrit (Bld) [Volume fraction] 40.2 % 37-47 [facility] Hemoglobin measurementOrdere d By: Lucio Ayoub on 05-22-2024 Hemoglobin (Bld) [Mass/Vol] 13.1 g/dL 12.0-15.0 [facility] Immature granulocytes/100 WB C Auto (Bld)Ordered By: Lucio Ayoub on 05-22-2024 Immature granulocytes/100 WBC (Bld) 0.400 % 0.0-0.9 [facility] Comment on above: IG% - Immature Granu locytes (promyelocytes, myelocytes and metamyelocytes) > 1% indicates that a LEFT SHIFT is Present. L506.1001on 05-22-2024 Vitamin D 25-OH 20.8 ng/mL Low 30-100 [facility] Comment on above: Result Comment: Roxie min D Status Deficiency: <20 ng/mL (50nmol/L) Insufficiency: 20-30 ng/mL (50-75 nmol/L) Sufficiency: 30-100 ng/mL (75-250 nmol/L) Toxicity: >100 ng/mL (>250 nmol/L) Performed By: #### L 100.0100, L500.4100, L501.9520, L500.4050, L506.1001 ####[facility] [address] [place], [place], [id number] LDL calc ser/plasOrdered By: Lucio Ayoub on 05-22-2024 Cholesterol in LDL [Mass/Vol] 86 mg/dL [facility] Comment on above: Lxpirllmti=242-326 m g/dL & Higher Vhzi=123 mg/dL or greater LDL Cholesterol, Calculated 86 mg/dL [facility] Comment on above: Faafuiwtpm=815-212 m g/dL & Higher Vbfq=653 mg/dL or greater Laboratory - Chemistry and C hemistry - challengeOrdered By: Lucio Ayoub on 05-22-2024 AST [Catalytic activity/Vol] 24 U/L <32 [facility] Lipid Profileon 05-22-2024 CHOL:HDL 2.40 Normal [facility] Comment on above: Performed By: #### L 100.0100, L500.4100, L501.9520, L500.4050, L506.1001 ####[facility] [address] [place], [address] Cholesterol [Mass/Vol] 203 mg/dL High <=200 [facility] Comment on above: Result Comment: Chol esterol level, Desirable <200 mg/dL Borderline high cholesterol 200-239 mg/dL High cholesterol >=240 mg/dL Recommendations of the NCEP Adult Treatment Panel for the following risk-cutoff thresholds for the [place] population. Performed By: #### L 100.0100, L500.4100, L501.9520, L500.4050, L506.1001 ####[facility] [address] [place], [address] Cholesterol in HDL [Mass/Vol] 85 mg/dL Normal [facility] Comment on above: Result Comment: Liliana onal Cholesterol Education Program (NCEP) guidelines: <40 mg/dL: Low HDL-cholesterol (major risk factor for CHD) >= 60 mg/dL: High HDL-cholesterol (negative risk factor for CHD) HDL-cholesterol is affected by a number of factors, e.g. smoking, exercise, hormones, sex and age. Performed By: #### L 100.0100, L500.4100, L501.9520, L500.4050, L506.1001 ####[facility] [address] [place], [address] Cholesterol in LDL [Mass/Vol] 86 mg/dL Normal [facility] Comment on above: Result Comment: Bord qysvzv=835-243 mg/dL Higher Yzuz=897 mg/dL or greater Performed By: #### L 100.0100, L500.4100, L501.9520, L500.4050, L506.1001 ####[facility] [address] [place], [address] Cholesterol in VLDL [Mass/Vol] 32 mg/dL Normal 5-40 [facility] Comment on above: Performed By: #### L 100.0100, L500.4100, L501.9520, L500.4050, L506.1001 ####[facility] [address] [place], [address] Triglyceride [Mass/Vol] 161 mg/dL Normal [facility] Comment on above: Result Comment: The drugs N-Acetylcysteine and Metamizole may falsely depress this assay. Normal range: <150 mg/dL Borderline High: 150-199 mg/dL High: 200-499 mg/dL Very High: >500 mg/dL Performed By: #### L 100.0100, L500.4100, L501.9520, L500.4050, L506.1001 ####[facility] [address] [place], [address] Lymphocytes Auto (Unsp spec) [#/Vol]Ordered By: Lucio Ayoub on 05-22-2024 Lymphocytes (Bld) [#/Vol] 2.10 10*3/uL 0.83-4.5 1 [facility] Lymphocytes/100 WBC Auto (Un sp spec)Ordered By: Lucio Ayoub on 05-22-2024 Lymphocytes/100 WBC (Bld) 27.2 % 19-41 [facility] MCV (mean corpuscular volume ) determinationOrdered By: Lucio Ayoub on 05-22-2024 MCV (RBC) [Entitic vol] 91.6 fL 81-99 [facility] Mean corpuscular hemoglobin (MCH) determinationOrdered By: Lucio Ayoub on 05-22-2024 MCH (RBC) [Entitic mass] 29.8 pg 27.0-32.0 [facility] Mean corpuscular hemoglobin concentration (MCHC) determinationOrdered By: Lucio Ayobu on 05-22-2024 MCHC (RBC) [Mass/Vol] 32.6 g/dL 32-36 [facility] Mean platelet volume determi nationOrdered By: Lucio Ayoub on 05-22-2024 Platelet mean volume (Bld) [Entitic vol] 10.0 fL 6.2-12.0 [facility] Monocyte percentageOrdered B y: Lucio Ayoub on 05-22-2024 Monocytes/100 WBC (Bld) 7.1 % 0-10 [facility] Neutrophil percentageOrdered By: Lucio Ayoub on 05-22-2024 Neutrophils/100 WBC (Bld) 62.2 % 47-70 [facility] Nucleated red blood cell per centageOrdered By: Lucio Ayoub on 05-22-2024 Nucleated RBC/100 WBC (Bld) [Ratio] 0 % 0-5 [facility] Platelet countOrdered By: Adriano Ayoub on 05-22-2024 Platelets (Bld) [#/Vol] 321 10*3/uL 150-450 [facility] Potassium (Unsp spec) [Mass/ Vol]Ordered By: Lucio Ayoub on 05-22-2024 Potassium [Moles/Vol] 3.8 mmol/L 3.3-5.1 [facility] Potassium measurement (mass/ volume)Ordered By: Lucio Ayoub on 05-22-2024 Potassium (Unsp spec) [Mass/Vol] 3.8 mmol/L 3.3-5.1 [facility] RBC Auto (Bld) [#/Vol]Ordere d By: Lucio Ayoub on 05-22-2024 RBC (Bld) [#/Vol] 4.39 10*6/uL 4.2-5.4 [facility] Screening total cholesterol/ high density lipoprotein (HDL) cholesterol ratioOrdered By: Lucio Ayoub on 05-22-2024 Cholesterol.total/Cholest kaitlyn in HDL [Mass ratio] 2.40 {ratio} [facility] Serum creatinine measurement (mass/volume)Ordered By: Lucio Ayoub on 05-22-2024 Creatinine [Mass/Vol] 0.75 mg/dL 0.70-1.20 [facility] Serum globulin measurementOr dered By: Lucio Ayoub 05-22-2024 Globulin (S) [Mass/Vol] 2.9 g/dL 2.2-4.2 [facility] Serum glucose measurement (m ass/volume)Ordered By: Lucio Ayoub on 05-22-2024 Glucose [Mass/Vol] 147 mg/dL High 70-99 [facility] Serum or plasma alanine cervantes otransferase (ALT) measurementOrdered By: Lucio Ayoub 05-22-2024 ALT [Catalytic activity/Vol] 26 U/L <35 [facility] Serum or plasma albumin guy urement (mass/volume)Ordered By: Lucio Ayoub on 05-22-2024 Albumin [Mass/Vol] 4.1 g/dL 3.4-4.8 [facility] Serum or plasma albumin/glob ulin mass ratioOrdered By: Lucio Ayoub 05-22-2024 Albumin/Globulin [Mass ratio] 1.4 {ratio} 0.9-2.4 [facility] Serum or plasma alkaline aakash sphatase measurementOrdered By: Lucio Ayoub 05-22-2024 ALP [Catalytic activity/Vol] 165 U/L High 35-104 [facility] Serum or plasma calcium guy urement (mass/volume)Ordered By: Lucio Ayoub 05-22-2024 Calcium [Mass/Vol] 9.5 mg/dL 7.6-11.0 [facility] Serum or plasma cholesterol in HDL measurement (mass/volume)Ordered By: Lucio Ayoub 05-22-2024 Cholesterol in HDL [Mass/Vol] 85 mg/dL >40 [facility] Comment on above: National Cholesterol Education Program (NCEP) guidelines:<40 mg/dL: Low HDL-cholesterol (major risk factor for CHD)>= 60 mg/dL: High HDL-cholesterol (negative risk factor for CHD)HDL-cholesterol is affected by a number of factors, e.g. smoking, exercise, hormones, sex and age. Serum or plasma cholesterol measurement (mass/volume)Ordered By: Lucio Ayoub 05-22-2024 Cholesterol [Mass/Vol] 203 mg/dL High <201 [facility] Comment on above: Cholesterol level, D esirable <200 mg/dLBorderline high cholesterol 200-239 mg/dLHigh cholesterol >=240 mg/dLRecommendations of the NCEP Adult Treatment Panel for the following risk-cutoff thresholds for the [place] population. Serum or plasma urea nitroge n measurement (mass/volume)Ordered By: Lucio Ayoub 05-22-2024 Urea nitrogen [Mass/Vol] 11 mg/dL 4-19 [facility] Sodium levelOrdered By: Lucio Ayoub 05-22-2024 Sodium [Moles/Vol] 140 mmol/L 133-145 [facility] TSH DL <= 0.005 mIU/L QnOrde red By: Lucio Ayoub on 05-22-2024 Thyroid Stimulating Hormone (TSH) 17.500 uIU/mL High 0.300-4.200 [facility] TSH Qn 17.500 uIU/mL High 0.300-4.200 [facility] Thyroid Stim Hormone (TSH)on 05-22-2024 TSH 17.500 uIU/mL High 0.300-4.200 [facility] Comment on above: Performed By: #### L 100.0100, L500.4100, L501.9520, L500.4050, L506.1001 ####[facility] [address] [place], [address] Total proteinOrdered By: Lucio Ayoub on 05-22-2024 Protein [Mass/Vol] 7.0 g/dL 5.9-8.4 [facility] Triglycerides measurementOrd ered By: Lucio Ayoub on 05-22-2024 Triglyceride [Mass/Vol] 161 mg/dL <199 [facility] Comment on above: The drugs N-Acetylcy steine and Metamizole may falsely depress this assay. Normal range: <150 mg/dLBorderline High: 150-199 mg/dLHigh: 200-499 mg/dLVery High: >500 mg/dL Vitamin D, 25-hydroxyOrdered By: Lucio Ayoub on 05-22-2024 Vitamin D 25-Hydroxy 20.8 ng/mL Low 30-100 [facility] Comment on above: Vitamin D StatusDefi ciency: <20 ng/mL (50nmol/L)Insufficiency: 20-30 ng/mL (50-75 nmol/L)Sufficiency: 30-100 ng/mL (75-250 nmol/L)Toxicity: >100 ng/mL (>250 nmol/L) White blood cell (WBC) count Ordered By: Lucio Ayoub on 05-22-2024 WBC (Bld) [#/Vol] 7.7 10*3/uL 4.4-11.0 [facility] D/C Summary- SPon 04-26-2024 D/C Summary- SP [facility] Speech Pathology [facility] [address] [place] [address]. [address] [place] [address] / REHABILITATION SERVICES DISCHARGE SUMMARY MR#: [id number] Acct: [id number] Name: JAEL HUGGINS Rep #: [id number] : 1945 78 From: Myra Lowery M.S., CCC-GROUNDSKEEPER SUPERVISOR Referring Dr.: Dr. Lucio Ayoub MD Status: REG RCR Insurance: [employer] SELF PAY INSURANCE Discharge Summary Discharged: Discharge: JALE HUGGINS is a 78 year old female who presented to [facility] on 10/12/2023 following dx of aphasia and mild cognitive impairment. She attended 39 additional sessions targeting expressive language production through use of VNEST, Semantic Feature Analysis, aphasia word finding strategies, and executive functioning tasks. Her last appt at [facility] was on 04/19/2024. As of 04/25/2024, Pt [...] Dr. Lucio Ayoub MD RE Signed Normal [facility] OT D/C of Non Returning Pton 04-25-2024 OT D/C of Non Returning Pt [facility] Occupational Therapy [address] [place] [address] / REHABILITATION SERVICES DISCHARGE SUMMARY MR#: [id number] Acct: [id number] Name: JAEL HUGGINS Rep #: [id number] : 1945 78 From: Blanca Britton Referring DrAlice: Dr. Lucio Ayoub MD Status: REG RCR Eval Date: Discharge Date: Patient Information Patient Information: JAEL UHGGINS was seen in my office for initial [...] Dr. Lucio Ayoub MD CK Signed Normal [facility] Bilirubin Test strip Ql (U)O rdered By: Lucio Ayoub on 04-06-2024 Bilirubin Ql (U) Negative Negative [facility] Calcium oxalate crystals LM Ql (Urine sed)Ordered By: Lucio Ayoub on 04-06-2024 Urine Calcium Oxalate Crystals 3+ /hpf [facility] Calcium oxalate crystals det ection in urine sediment by light microscopyOrdered By: Lucio Ayoub on 04-06-2024 Calcium oxalate crystals LM Ql (Urine sed) 3+ /hpf [facility] Epithelial cells.squamous LM Ql (Urine sed)Ordered By: Lucio Ayoub on 04-06-2024 Epithelial cells.squamous LM.HPF (Urine sed) [#/Area] 10 /[HPF] 5-10 [facility] Glucose Ql (U)Ordered By: Adriano Ayoub on 04-06-2024 Urine Glucose (UA) Normal mg/dl Normal [facility] Ketones Test strip Ql (U)Ord ered By: Lucio Ayoub on 04-06-2024 Ketones Ql (U) Negative Negative [facility] Microscopic analysis of urin e for red blood cells (RBC)Ordered By: Lucio Ayoub on 04-06-2024 Microscopic analysis of urine for red blood cells (RBC) 0-5 SEEN /hpf 0-5 [facility] Urine RBC 0-5 SEEN /hpf 0-5 [facility] Mucus LM Ql (Urine sed)Order ed By: Lucio Ayoub on 04-06-2024 Mucus Ql (Urine sed) 0 SEEN /hpf [facility] Nitrite Test strip Ql (U)Ord ered By: Lucio Ayoub on 04-06-2024 Nitrite Ql (U) Negative Negative [facility] Protein Test strip Ql (U)Ord ered By: Lucio Ayoub on 04-06-2024 Protein Ql (U) 15 mg/dl High Negative [facility] Squamous epithelial cells de tection in urine sediment by light microscopyOrdered By: Lucio Mega on 04-06-2024 Epithelial cells.squamous LM Ql (Urine sed) 10-25 SEEN /hpf 5-10 [facility] Urinalysis, Completeon 04-06 BACTERIA 1+ /hpf Normal None Seen [facility] Comment on above: Order Comment: Urine , Random Performed By: #### L 400.0001 ####[facility] [address] [place], [address] RBC 0-5 SEEN Normal 0-5 [facility] Comment on above: Order Comment: Urine , Random Performed By: #### L 400.0001 ####[facility] [address] [place], [address] CA OX CRYSTAL 3+ /hpf Normal [facility] Comment on above: Order Comment: Urine , Random Performed By: #### L 400.0001 ####[facility] [address] [place], [address] EPI,SQUAMOUS 10-25 SEEN Normal 5-10 [facility] Comment on above: Order Comment: Urine , Random Performed By: #### L 400.0001 ####[facility] [address] [place], [address] WBC 10-25 SEEN Normal 0-5 [facility] Comment on above: Order Comment: Urine , Random Performed By: #### L 400.0001 ####[facility] [address] [place], [address] Mucus Ql (Urine sed) 0 SEEN Normal [facility] Comment on above: Order Comment: Urine , Random Performed By: #### L 400.0001 ####[facility] [address] [place], [place], [id number] Urine blood detectionOrdered By: Lucio Ayoub on 04-06-2024 Urine Occult Blood 10 /ul High Negative [facility] Urine clarityOrdered By: Lucio Ayoub on 04-06-2024 Clarity (U) Sl. Cloudy Clear [facility] Urine color determinationOrd ered By: Lucio Ayoub on 04-06-2024 Color (U) Yellow Yellow [facility] Urine glucose detectionOrder ed By: Lucio Ayoub on 04-06-2024 Glucose Ql (U) Normal mg/dl Normal [facility] Urine leukocyte esterase det ection by dipstickOrdered By: Lucio Ayoub on 04-06-2024 Leukocyte esterase Test strip Ql (U) 500 /ul High Negative [facility] Urine pHOrdered By: Lucio Ayoub on 04-06-2024 pH (U) 5.0 [pH] 5.0 - 8.0 [facility] Urine sediment bacteria coun t by microscopy (number/high power field)Ordered By: Lucio Ayoub on 04-06-2024 Bacteria LM.HPF (Urine sed) [#/Area] 1 /[HPF] None Seen [facility] Urine specific gravity measu rementOrdered By: Lucio Ayoub on 04-06-2024 Specific gravity (U) [Rel density] 1.025 1.002-1.030 [facility] Urine urobilinogen measureme ntOrdered By: Lucio Ayoub on 04-06-2024 Urobilinogen Ql (U) 1 mg/dl High Normal [facility] Urobilinogen Ql (U)Ordered B y: Lucio Ayoub on 04-06-2024 Urobilinogen (U) [Mass/Vol] 1 mg/dL High Normal [facility] White blood cell countOrdere d By: Lucio Ayoub on 04-06-2024 Urine WBC 10-25 SEEN /hpf 0-5 [facility] White blood cell count 10-25 SEEN /hpf 0-5 [facility] OT General Evaluationon OT General Evaluation [facility] Occupational Therapy [address] [place] [address] / REHABILITATION SERVICES INITIAL EVALUATION MR#: [id number] Acct: [id number] Name: JAEL HUGGINS Rep #: [id number] : 1945 78 From: Blanca Brtiton Referring Dr.: Dr. Lucio Ayoub MD Status: [...] to a 10 when doing that Strength Baton Twirler: R 25# L 45# Lateral Pinch: R [...] Goals Goal:ROM equal to unaffected hand: Yes Goal:Baton Twirler/Pinch strength at least 75% of unaffected hand: Yes Goal:No pain with affected hand use: Yes Goal:Full use of affected hand in daily activities including work: Yes Goal:Improvement in sensation documented by [place]-Qu[place] monofiliaments: Yes Comment: quick dash Other Goal: [...] to be FAXED BACK to us at [phone] for Medicare purposes. Please let me know if there are questions or concerns regarding this plan of care. Physician Signature: Date : 03/27/24 1501 CC: Dr. Lucio Ayoub MD CK Signed For Medicare only, by signing this I certify the plan of care. Physicians Signature Date Normal [facility] SP/HP.JOSÉVon 03-01-2024 SP/HP.SPREEV [facility] Speech Pathology [facility] [address] [place] [address] / REEVALUATION / MEDICARE RECERTIFICATION SPEECH THERAPY MR#: [id number] Acct: [id number] Name: JAEL HUGGINS Rep #: [id number] : 1945 78 From: Myra Lowery M.S., [facility]-GROUNDSKEEPER SUPERVISOR Referring Dr.: Dr. Lucio Ayoub MD Insurance: [employer] MEDICAID Visit History Visit Info Date of Eval: 10/12/23 Visit: 1 Patient's Approved Number of Visits: 30 Insurance Date Limit: 03/20/24 Dealership General Manager: LUNA Martinez Attending Doctor: Referring Doctor: Reason for Referral: MILD COGNITIVE IMPAIRMENT/APHASIA. RX HERE Smoking Status: Never smoker Diagnosis Diagnosis: Mild-moderate cognitive-linguistic disorder Pain Is pain an issue with your current prescribed condition?: No Personal Preferred language: [place] Patient Allergies Allergies Allergies: Allergies No Known Allergies Allergy (Verified 01/03/24 10:33) Previous/Current Goals Goals 1-5 Previous Goal #1: Jael will demonstrate use of word finding strategies to complete complex convergent and divergent naming tasks with 80% acc across 3 measured opportunities when given fading cues. Goal 1 Status: GOAL MET - [place] categories: Foods 5/5, Drinks 5/5, Animals 9 [...] a mistak (more content not included)... Normal [facility] NCS and/or EMG Patienton NCS and/or EMG Patient [facility] Pulmonary Services/Neurology [address] [place] [address] MR#: [id number] Acct: [id number] Name: JAEL HUGGINS Rep #: [id number] : 1945 78 From: Rosario Cisneros MD [...] Multi Select Codes Neurology Neurology Interp Codes: 23035-95 Musc test done w/n test comp (interp) and 18710-37 Nrv cndj test 7- 8 studies (interp) 01/25/24 1451 Date Rosario Cisneros MD CC: SUZETTE Fontenot; Dr. Rosario Cisneros MD; Dr. Lucio Ayoub MD Date Dictated: 01/25/241448 Date Transcribed: 01/25/241448 Retail Advertising Sales Manager: CATRINA Signed Normal [facility] SP/HP.Lars 01-18-2024 SP/HP.SPREEV [facility] Speech Pathology [facility] [address] [place] [address] / REEVALUATION / MEDICARE RECERTIFICATION SPEECH THERAPY MR#: [id number] Acct: [id number] Name: JAEL HUGGINS Rep #: [id number] : 1945 78 From: Taylor De Anda Referring Dr.: Dr. Lucio Ayoub MD Insurance: [employer] MEDICAID Visit History Visit Info Date of Eval: 10/12/23 Visit: 1 Patient's Approved Number of Visits: 10 Insurance Date Limit: 03/20/24 Dealership General Manager: AB History Attending Doctor: Referring Doctor: Reason [...] etc. Patient has made consistent progress towards detention and short term goals, however will need [...] 78 year old female who presents to [facility] following a recent dx of [...] therapy on the Transitional Care Unit at [facility]. At the time of her d/c it [...] current prescribed condition?: No Personal Preferred language: [place] Patient Allergies Allergies Allergies: Allergies No Known Allergies Allergy (Verified 01/03/24 10:33) Previous/Current Goals Goals 1-5 Previous Goal #1: Jael will demonstrate use of word finding strategies to complete complex convergent and divergent naming tasks with 80% acc across 3 measured opportunities when given fading cues. Goal 1 Status: Goal Progressing: [place] categories divergent namin% accuracy given moderate verbal [...] information answ (more content not included)... Normal [facility] Procedure Reporton 4 Procedure Report [facility] Medical Records Department [address] [place] [address] Procedure Report 01/03/24 1143 MR#: [id number] Acct: [id number] Name: JAEL HUGGINS Rep #: [id number] : 1945 78 From: Mi Fajardo BURNT LIME DRAWER-C PCP: Dr. Lucio Ayoub MD Status:REG CLI Location: RAD Procedure Report Date of Procedure: 01/03/24 Assessment Plan Assessment/Plan (1) Mild cognitive impairment: PLAN: PROCEDURE: Fluoroscopic guided Lumbar Puncture. ORDERING PROVIDER: Dr. Ayoub CLINICAL INDICATION: Female, 78 years old. Mild cognitive impairment. PROVIDER: Mi Fajardo APRN-PIN BALL MACHINE MECHANIC MEDICATIONS: 2% lidocaine administered subcutaneously for local [...] lumbar puncture. Procedures Radiology Radiology Xray Procedures: 86796 Lumbar Puncture Dx Multi Select Codes Radiology Rad Xray Procedures: 15224-06 Fluoroscopic guidance for needle placement 01/03/24 1145 Cosigner Signature (if applicable): CC: MEME Fajardo; Dr. Lucio Ayoub MD Signed Normal [facility] PT D/C Summary (1)on 024 PT D/C Summary (1) [facility] Physical Therapy [address] [place] [id number] / REHABILITATION SERVICES DISCHARGE SUMMARY MR#: [id number] Acct: [id number] Name: JAEL HUGGINS Rep #: [id number] : 1945 78 From: Perla Silver MPT [...] please feel free to call me at [phone]. Thank you for the referral of this patient. Sincerely, Perla Silver, MPT Balance/Gait/Function al tests Balance/Special Test Scores Lower Extremity Functional Score: 31 Improvement % Improvement: 75 12/21/23 1342 CC: Dr. Lucio Ayoub MD Signed Normal [facility] Brain without Contraston Brain without Contrast [facility] Imaging Services [address] [place] [address] Brain without Contrast MR#: [id number] Acct: [id number] Name: JAEL HUGGINS Rep #: [id number] : 1945 F 78 From: Rex Montana MD PCP: Dr. Lucio Ayoub MD Status: REG CLI Study: Brain without Contrast Date of Exam: 11/22/23 Exam# [id number] Ordering Dr: Lucio Ayoub MD [id number] STUDY: MRI BRAIN WITHOUT CONTRAST REASON FOR [...] EDT , CC: Dr. Lucio Ayoub MD Retail Advertising Sales Manager: Signed Normal [facility] SP/HP.Lars 11-14-2023 SP/HP.ROBB [facility] Speech Pathology [facility] [address] [place] [address]. [address] [place] [address] / REEVALUATION / MEDICARE RECERTIFICATION SPEECH THERAPY MR#: [id number] Acct: [id number] Name: JAEL HUGGINS Rep #: [id number] : 1945 78 From: Myra Lowery M.S., CCC-GROUNDSKEEPER SUPERVISOR Referring Dr.: Dr. Lucio Ayoub MD Insurance: [employer]ARE MEDICAID Visit History Visit Info Date of Eval: 10/12/23 Visit: 1 Patient's Approved Number of Visits: 10 Insurance Date Limit: 03/20/24 Dealership General Manager: LUNA Martinez Attending Doctor: Referring Doctor: Reason [...] etc. Patient has made consistent progress towards detention and short term goals, however will need [...] 78 [facility] a [facility] [...] therapy on the Transitional Care Unit at [facility]. At the time of her d/c it [...] current prescribed condition?: No Personal Preferred language: [place] Patient Allergies Allergies Allergies: Allergies No Known Allergies Allergy (Verified 06/02/23 08:55) Previous/Current Goals Goals 1-5 Previous Goal #1: Jael will participate in continued cognitive communication assessment [...] task improving (more content not included)... Normal [facility] Re-Evaluation - PT (1)on Re-Evaluation - PT (1) [facility] Physical Therapy [address] [place] [address] / REEVALUATION / MEDICARE RECERTIFICATION PHYSICAL THERAPY MR#: [id number] Acct: [id number] Name: JAEL HUGGINS Rep #: [id number] : 1945 78 From: Perla Silver MPT [...] do not hesitate to contact me at [phone] by phone or if you have questions or concerns regarding this new plan of care! Sincerely, Perla Silver, MPT 10/21/23 1359 CC: Dr. Lucio Ayoub MD Signed For Medicare only, (more content not included)... Normal [facility] SP/HP.SP.Yaakov 10-12-2023 SP/HP.SP.EV [facility] Speech Pathology [facility] [address] [place] [address] / REHABILITATION SERVICES INITIAL EVALUATION MR#: [id number] Acct: [id number] Name: JAEL HUGGINS Rep #: [id number] : 1945 78 From: Myra Lowery M.S., [facility]-GROUNDSKEEPER SUPERVISOR Referring Dr.: Dr. Lucio Ayoub MD Status: REG R Insurance: [employer] MEDICAID Visit History Visit Info Date of Eval: 10/12/23 Visit: 1 Patient's Approved Number of Visits: 10 Insurance Date Limit: 03/20/24 Dealership General Manager: LUNA Martinez Attending Doctor: Referring Doctor: Reason [...] etc. Patient has made consistent progress towards detention and short term goals, however will need [...] 78 year old female who presents to [facility] following a recent dx of [...] therapy on the Transitional Care Unit at [facility]. At the time of her d/c it [...] current prescribed condition?: No Personal Preferred language: [place] Patient Allergies Allergies Allergies: Allergies No Known [...] to comp (more content not included)... Normal [facility] Re-Evaluation - PT (1)on Re-Evaluation - PT (1) [facility] Physical Therapy [facility] [address] [place] [address] [address] [place] [address] / REEVALUATION / MEDICARE RECERTIFICATION PHYSICAL THERAPY MR#: [id number] Acct: [id number] Name: JAEL HUGGINS Rep #: [id number] : 1945 78 From: Perla Silver MPT [...] do not hesitate to contact me at [phone] by phone or if you have questions or concerns regarding this new plan of care! Sincerely, SHLOMO Urena 10/03/23 1458 CC: Dr. Lucio Ayoub MD Signed For Medicare only, by signing this I certify the plan of care. Physicians Sign (more content not included)... Normal [facility] Re-Evaluation - PT (1)on Re-Evaluation - PT (1) [facility] Physical Therapy [facility] [address] [place] [address] / REEVALUATION / MEDICARE RECERTIFICATION PHYSICAL THERAPY MR#: [id number] Acct: [id number] Name: JAEL HUGGINS Rep #: [id number] : 1945 77 From: Perla KEENAN Referring [...] do not hesitate to contact me at [phone] by phone or if you have questions or concerns regarding this new plan of care! Sincerely, Perla Silver, SHLOMO 08/31/23 1508 CC: Dr. Lucio Ayoub MD Signed For Medicare only, by signing this I certify the plan of care. Physicians Signature Date Normal [facility] Emergency Department Summary on 08-22-2023 Emergency Department Summary [facility] Medical Records Department [address] [place] [address] Emergency Department Summary 08/22/23 MR#: [id number] Acct: [id number] Name: JAEL HUGGINS Rep #: [id number] : 1945 77 From: Tommy Huff DO [...] a history of a right-sided hip replacement. [facility] Medical History Contusion of right knee Strain [...] have enc (more content not included)... Normal [facility] HIP, UNI W/ Pelvis 2-3 Views on 08-22-2023 HIP, UNI W/ Pelvis 2-3 Views [facility] Imaging Services [address] [place] [address] HIP, UNI W/ Pelvis 2-3 Views MR#: [id number] Acct: [id number] Name: JAEL HUGGINS Rep #: [id number] : 1945 F 77 From: John guthrie MD PCP: Dr. Lucio Ayoub MD Status: REG ER Study: HIP, UNI W/ Pelvis 2-3 Views Date of Exam: 06/11 Exam# [id number] Ordering Dr: Britt Austin [id number] STUDY: X-RAY - PELVIS AND RIGHT HIP [...] CC: Dr. Lucio Ayoub MD; MARGARITA Rodriguez Retail Advertising Sales Manager: Signed Normal [facility] Laboratory - Microbiology an d Antimicrobial susceptibilityOrdered By: Lucio Ayoub on 06-29-2023 SARS-CoV-2 (COVID-19) RNA [place]+probe Ql (Unsp spec) [facility] Serum or plasma thyroid stim ulating hormone (TSH) measurement (units/volume)Ordered By: Lucio Ayoub on 06-09-2023 TSH Qn 3.69 uIU/mL 0.358-3.74 [facility] Absolute lymphocyte countOrd ered By: Lucio Ayoub on 04-25-2023 Lymphocytes Auto (Unsp spec) [#/Vol] 1.95 10*3/uL 0.83-4.51 [facility] Automated lymphocyte count a s percentage of total leukocytesOrdered By: Lucio Ayoub on 04-25-2023 Lymphocytes/100 WBC Auto (Unsp spec) 31.4 % 19-41 [facility] Basophil percentageOrdered B y: Lucio Ayoub on 04-25-2023 Basophils/100 WBC (Bld) 1.0 % 0-1 [facility] Bilirubin [Mass/Vol] 0.60 mg/dL 0.20-1.00 [facility] Comment on above: For patients on eltr ombopag therapy, use of Dimension [place] TBIL is not recommended. Chloride [Moles/Vol] 108 mmol/L 98-107 [facility] Eosinophils/100 WBC (Bld) 1.6 % 0-5 [facility] Glucose [Mass/Vol] 101 mg/dL 74-106 [facility] Comment on above: Fasting Glucose resu lt from 100 to 125 mg/dL suggests IMPAIRED HOMEOSTASIS per A.D.A. criteria. Hemoglobin (Bld) [Mass/Vol] 13.8 g/dL 12.0-15.0 [facility] Monocytes/100 WBC (Bld) 6.1 % 0-10 [facility] Neutrophils (Bld) [#/Vol] 3.7 10*3/uL 2.0-7.7 [facility] Neutrophils/100 WBC (Bld) 59.7 % 47-70 [facility] Potassium [Moles/Vol] 3.9 mmol/L 3.5-5.1 [facility] Protein [Mass/Vol] 8.3 g/dL 6.4-8.2 [facility] Sodium [Moles/Vol] 140 mmol/L 136-145 [facility] WBC (Bld) [#/Vol] 6.2 10*3/uL 4.4-11.0 [facility] Determination of erythrocyte mean corpuscular volume (MCV)Ordered By: Lucio Ayoub on 04-25-2023 MCV (RBC) [Entitic vol] 91.4 fL 81-99 [facility] Erythrocyte distribution wid th ratioOrdered By: Lucio Ayoub on 04-25-2023 Erythrocyte distribution width (RBC) [Ratio] 12.9 % 11.6-14.6 [facility] Erythrocyte distribution wid th standard deviationOrdered By: Lucio Ayoub on 04-25-2023 Erythrocyte distribution width (RBC) [Entitic vol] 42.9 fL 35.1-43.9 [facility] Hematocrit Auto (Bld) [Volum e fraction]Ordered By: Lucio Ayoub on 04-25-2023 Hematocrit (Bld) [Volume fraction] 42.5 % 37-47 [facility] Immature granulocytes/100 WB C Auto (Bld)Ordered By: Lucio Ayoub 04-25-2023 Immature granulocytes/100 WBC (Bld) 0.200 % 0.0-0.9 [facility] Comment on above: IG% - Immature Granu locytes (promyelocytes, myelocytes and metamyelocytes) > 1% indicates that a LEFT SHIFT is Present. Laboratory - Chemistry and C hemistry - challengeOrdered By: Lucio Ayoub on 04-25-2023 Albumin/Globulin [Mass ratio] 0.9 {ratio} 0.9-2.4 [facility] ALP [Catalytic activity/Vol] 146 U/L 45-117 [facility] ALT [Catalytic activity/Vol] 40 U/L 13-56 [facility] CO2 [Moles/Vol] 23.0 mmol/L 21.0-32.0 [facility] Globulin (S) [Mass/Vol] 4.4 g/dL 2.2-4.2 [facility] Urea nitrogen/Creatinine [Mass ratio] 16.4 mg/mg 10-20 [facility] Laboratory - Hematology and Cell countsOrdered By: Lucio Ayoub on 04-25-2023 MCH (RBC) [Entitic mass] 29.7 pg 27.0-32.0 [facility] MCHC (RBC) [Mass/Vol] 32.5 g/dL 32-36 [facility] Nucleated RBC/100 WBC (Bld) [Ratio] 0 % 0-5 [facility] Platelets (Bld) [#/Vol] 328 10*3/uL 150-450 [facility] No Panel InformationOrdered By: Lucio Ayoub on 04-25-2023 Estimated GFR (MDRD) Amer 83 mL/min >60 [facility] Comment on above: GFR Calc Estimated GFR (MDRD) Non-Af Amer 69 mL/min >60 [facility] Comment on above: Non- GFR Calc Vitamin D 25-Hydroxy 27.8 ng/mL [facility] Comment on above: Vitamin D 25(OH) Sta tus Range Deficiency <20 ng/mL (50nmol/L) Insufficiency 20 - 30 ng/mL (50 - 75 nmol/L) Sufficiency 30 - 100 ng/mL (75 - 250 nmol/L) Toxicity >100 ng/mL (>250 nmol/L) Platelet mean volume Abraham-Ec ker (Bld) [Entitic vol]Ordered By: Lucio Ayoub on 04-25-2023 Platelet mean volume (Bld) [Entitic vol] 10.2 fL 6.2-12.0 [facility] RBC Auto (Bld) [#/Vol]Ordere d By: Lucio Ayoub on 04-25-2023 RBC (Bld) [#/Vol] 4.65 10*6/uL 4.2-5.4 [facility] Serum or plasma calcium guy urement (mass/volume)Ordered By: Lucio Ayoub on 04-25-2023 Calcium [Mass/Vol] 9.8 mg/dL 8.5-10.1 [facility] Serum or plasma creatinine m easurement (mass/volume)Ordered By: Lucio Ayoub on 04-25-2023 Creatinine [Mass/Vol] 0.85 mg/dL 0.55-1.02 [facility] Comment on above: The validity of the calculated GFR & GFRAA in patients over 70 years has not been determined. Clinical correlation is essential. Serum or plasma thyroid stim ulating hormone (TSH) measurement (units/volume)Ordered By: Lucio Ayoub on 04-25-2023 TSH Qn 31.60 uIU/mL 0.358-3.74 [facility] Serum or plasma urea nitroge n measurement (mass/volume)Ordered By: Lucio Ayoub on 04-25-2023 Urea nitrogen [Mass/Vol] 14 mg/dL 7-18 [facility] Thin prep Papanicolaou smear with manual screeningOrdered By: Lucio Ayoub on 04-25-2023 Thin prep Papanicolaou smear with manual screening 3.9 g/dL 3.2-5.0 [facility] Thin prep Papanicolaou smear with manual screening 14 U/L 15-37 [facility] Thin prep Papanicolaou smear with manual screening 9 5-15 [facility] Absolute lymphocyte countOrd ered By: Dr. Ayoub on 04-19-2022 Lymphocytes Auto (Unsp spec) [#/Vol] 2.08 10*3/uL 0.83-4.51 [facility] Basophil percentageOrdered B y: Dr. Ayoub on 04-19-2022 Basophils/100 WBC (Bld) 0.4 % 0-1 [facility] Bilirubin [Mass/Vol] 0.30 mg/dL 0.20-1.00 [facility] Comment on above: For patients on eltr ombopag therapy, use of Dimension [place] TBIL is not recommended. Chloride [Moles/Vol] 107 mmol/L 98-107 [facility] Eosinophils/100 WBC (Bld) 1.9 % 0-5 [facility] Glucose [Mass/Vol] 92 mg/dL 74-106 [facility] Neutrophils (Bld) [#/Vol] 4.7 10*3/uL 2.0-7.7 [facility] Neutrophils/100 WBC (Bld) 62.0 % 47-70 [facility] Potassium [Moles/Vol] 3.7 mmol/L 3.5-5.1 [facility] Protein [Mass/Vol] 7.3 g/dL 6.4-8.2 [facility] Sodium [Moles/Vol] 141 mmol/L 136-145 [facility] WBC (Bld) [#/Vol] 7.5 10*3/uL 4.4-11.0 [facility] Blood erythrocytes count (nu mber/volume)Ordered By: Dr. Ayoub on 04-19-2022 RBC (Bld) [#/Vol] 4.56 10*6/uL 4.2-5.4 [facility] Blood hemoglobin measurement (mass/volume)Ordered By: Dr. Ayoub on 04-19-2022 Hemoglobin (Bld) [Mass/Vol] 13.4 g/dL 12.0-15.0 [facility] Blood lymphocytes/100 leukoc ytesOrdered By: Dr. Ayoub on 04-19-2022 Lymphocytes/100 WBC (Bld) 27.7 % 19-41 [facility] Blood monocytes/100 leukocyt esOrdered By: Dr. Ayoub on 04-19-2022 Monocytes/100 WBC (Bld) 7.7 % 0-10 [facility] Blood platelet mean volumeOr dered By: Dr. Ayoub on 04-19-2022 Platelet mean volume (Bld) [Entitic vol] 10.2 fL 6.2-12.0 [facility] Determination of erythrocyte mean corpuscular volume (MCV)Ordered By: Dr. Ayoub on 04-19-2022 MCV (RBC) [Entitic vol] 92.1 fL 81-99 [facility] Hematocrit Auto (Bld) [Volum e fraction]Ordered By: Dr. Ayoub on 04-19-2022 Hematocrit (Bld) [Volume fraction] 42.0 % 37-47 [facility] Laboratory - Chemistry and C hemistry - challengeOrdered By: Dr. Ayoub on 04-19-2022 ALP [Catalytic activity/Vol] 221 U/L 45-117 [facility] ALT [Catalytic activity/Vol] 48 U/L 13-56 [facility] CO2 [Moles/Vol] 23.0 mmol/L 21.0-32.0 [facility] Globulin (S) [Mass/Vol] 3.9 g/dL 2.2-4.2 [facility] Urea nitrogen/Creatinine [Mass ratio] 18.1 mg/mg 10-20 [facility] Laboratory - Hematology and Cell countsOrdered By: Dr. Ayoub on 04-19-2022 Erythrocyte distribution width (RBC) [Entitic vol] 44.7 fL 35.1-43.9 [facility] Erythrocyte distribution width (RBC) [Ratio] 13.2 % 11.6-14.6 [facility] Immature granulocytes/100 WBC (Bld) 0.300 % 0.0-0.9 [facility] Comment on above: IG% - Immature Granu locytes (promyelocytes, myelocytes and metamyelocytes) > 1% indicates that a LEFT SHIFT is Present. MCH (RBC) [Entitic mass] 29.4 pg 27.0-32.0 [facility] Nucleated RBC/100 WBC (Bld) [Ratio] 0 % 0-5 [facility] MCHC Auto (RBC) [Mass/Vol]Or dered By: Dr. Ayoub on 04-19-2022 MCHC (RBC) [Mass/Vol] 31.9 g/dL 32-36 [facility] No Panel InformationOrdered By: Dr. Ayoub on 04-19-2022 Estimated GFR (MDRD) Amer 102 mL/min >60 [facility] Comment on above: GFR Calc Estimated GFR (MDRD) Non-Af Amer 84 mL/min >60 [facility] Comment on above: Non- GFR Calc Thyroid Stimulating Hormone (TSH) 0.24 uIU/mL 0.358-3.74 [facility] Vitamin D 25-Hydroxy 30.4 ng/mL [facility] Comment on above: Vitamin D 25(OH) Sta tus Range Deficiency <20 ng/mL (50nmol/L) Insufficiency 20 - 30 ng/mL (50 - 75 nmol/L) Sufficiency 30 - 100 ng/mL (75 - 250 nmol/L) Toxicity >100 ng/mL (>250 nmol/L) Platelets bldOrdered By: Dr. Ayoub on 04-19-2022 Platelets (Bld) [#/Vol] 338 10*3/uL 150-450 [facility] Serum or plasma albumin guy urement (mass/volume)Ordered By: Dr. Ayoub on 04-19-2022 Albumin [Mass/Vol] 3.4 g/dL 3.2-5.0 [facility] Serum or plasma albumin/glob ulin mass ratioOrdered By: Dr. Ayoub on 04-19-2022 Albumin/Globulin [Mass ratio] 0.9 {ratio} 0.9-2.4 [facility] Serum or plasma calcium guy urement (mass/volume)Ordered By: Dr. Ayoub on 04-19-2022 Calcium [Mass/Vol] 9.4 mg/dL 8.5-10.1 [facility] Serum or plasma creatinine m easurement (mass/volume)Ordered By: Dr. Ayoub on 04-19-2022 Creatinine [Mass/Vol] 0.72 mg/dL 0.55-1.02 [facility] Comment on above: The validity of the calculated GFR & GFRAA in patients over 70 years has not been determined. Clinical correlation is essential. Serum or plasma urea nitroge n measurement (mass/volume)Ordered By: Dr. Ayoub on 04-19-2022 Urea nitrogen [Mass/Vol] 13 mg/dL 7-18 [facility] Thin prep Papanicolaou smear with manual screeningOrdered By: Dr. Ayoub on 04-19-2022 Thin prep Papanicolaou smear with manual screening 29 U/L 15-37 [facility] Thin prep Papanicolaou smear with manual screening 11 5-15 [facility] Microbial respiratory cultur eOrdered By: Dr. Ayoub on 02-21-2022 Bacteria identified Respiratory culture Nom (Unsp spec) [facility] Gram stain for investigation of transfusion reactionOrdered By: Dr. Ayoub on 02-19-2022 Microscopic observation Gram stain Nom (Unsp spec) [facility] Absolute lymphocyte countOrd ered By: Dr. Ayoub on 02-16-2022 Lymphocytes Auto (Unsp spec) [#/Vol] 1.24 10*3/uL 0.83-4.51 [facility] Basophil percentageOrdered B y: Dr. Ayoub on 02-16-2022 Basophils/100 WBC (Bld) 1.1 % 0-1 [facility] Chloride [Moles/Vol] 108 mmol/L 98-107 [facility] Eosinophils/100 WBC (Bld) 3.8 % 0-5 [facility] Glucose [Mass/Vol] 94 mg/dL 74-106 [facility] Neutrophils (Bld) [#/Vol] 1.7 10*3/uL 2.0-7.7 [facility] Neutrophils/100 WBC (Bld) 47.3 % 47-70 [facility] Potassium [Moles/Vol] 3.6 mmol/L 3.5-5.1 [facility] Sodium [Moles/Vol] 139 mmol/L 136-145 [facility] WBC (Bld) [#/Vol] 3.7 10*3/uL 4.4-11.0 [facility] Blood erythrocytes count (nu mber/volume)Ordered By: Dr. Ayoub on 02-16-2022 RBC (Bld) [#/Vol] 3.49 10*6/uL 4.2-5.4 [facility] Blood hemoglobin measurement (mass/volume)Ordered By: Dr. Ayoub on 02-16-2022 Hemoglobin (Bld) [Mass/Vol] 10.5 g/dL 12.0-15.0 [facility] Blood lymphocytes/100 leukoc ytesOrdered By: Dr. Ayoub on 02-16-2022 Lymphocytes/100 WBC (Bld) 33.9 % 19-41 [facility] Blood monocytes/100 leukocyt esOrdered By: Dr. Ayoub on 02-16-2022 Monocytes/100 WBC (Bld) 13.4 % 0-10 [facility] Blood platelet mean volumeOr dered By: Dr. Ayoub on 02-16-2022 Platelet mean volume (Bld) [Entitic vol] 9.3 fL 6.2-12.0 [facility] Determination of erythrocyte mean corpuscular volume (MCV)Ordered By: Dr. Ayoub on 02-16-2022 MCV (RBC) [Entitic vol] 96.0 fL 81-99 [facility] Hematocrit Auto (Bld) [Volum e fraction]Ordered By: Dr. Ayoub on 02-16-2022 Hematocrit (Bld) [Volume fraction] 33.5 % 37-47 [facility] Laboratory - Chemistry and C hemistry - challengeOrdered By: Dr. Ayoub on 02-16-2022 CO2 [Moles/Vol] 26.0 mmol/L 21.0-32.0 [facility] Urea nitrogen/Creatinine [Mass ratio] 21.5 mg/mg 10-20 [facility] Laboratory - Hematology and Cell countsOrdered By: Dr. Ayoub on 02-16-2022 Erythrocyte distribution width (RBC) [Entitic vol] 55.8 fL 35.1-43.9 [facility] Erythrocyte distribution width (RBC) [Ratio] 15.8 % 11.6-14.6 [facility] Immature granulocytes/100 WBC (Bld) 0.500 % 0.0-0.9 [facility] Comment on above: IG% - Immature Granu locytes (promyelocytes, myelocytes and metamyelocytes) > 1% indicates that a LEFT SHIFT is Present. MCH (RBC) [Entitic mass] 30.1 pg 27.0-32.0 [facility] Nucleated RBC/100 WBC (Bld) [Ratio] 0 % 0-5 [facility] MCHC Auto (RBC) [Mass/Vol]Or dered By: Dr. Ayoub on 02-16-2022 MCHC (RBC) [Mass/Vol] 31.3 g/dL 32-36 [facility] No Panel InformationOrdered By: Dr. Ayoub on 02-16-2022 Estimated Creatinine Clearance Calc 44.80 ml/min [facility] Estimated GFR (MDRD) Amer 136 mL/min >60 [facility] Comment on above: GFR Calc Estimated GFR (MDRD) Non-Af Amer 112 mL/min >60 [facility] Comment on above: Non- GFR Calc Platelets bldOrdered By: Dr. Ayoub on 02-16-2022 Platelets (Bld) [#/Vol] 395 10*3/uL 150-450 [facility] Serum or plasma calcium guy urement (mass/volume)Ordered By: Dr. Ayoub on 02-16-2022 Calcium [Mass/Vol] 9.2 mg/dL 8.5-10.1 [facility] Serum or plasma creatinine m easurement (mass/volume)Ordered By: Dr. Ayoub on 02-16-2022 Creatinine [Mass/Vol] 0.56 mg/dL 0.55-1.02 [facility] Comment on above: The validity of the calculated GFR & GFRAA in patients over 70 years has not been determined. Clinical correlation is essential. Serum or plasma urea nitroge n measurement (mass/volume)Ordered By: Dr. Ayoub on 02-16-2022 Urea nitrogen [Mass/Vol] 12 mg/dL 7-18 [facility] Thin prep Papanicolaou smear with manual screeningOrdered By: Dr. Ayoub on 02-16-2022 Thin prep Papanicolaou smear with manual screening 5 5-15 [facility] Absolute lymphocyte counton 02-09-2022 Lymphocytes Auto (Unsp spec) [#/Vol] 1.54 10*3/uL 0.83-4.51 [facility] Work Phone: Basophil percentageon 2021 Basophils/100 WBC (Bld) 0.9 % 0-1 [facility] Work Phone: Chloride [Moles/Vol] 108 mmol/L 98-107 [facility] Work Phone: Eosinophils/100 WBC (Bld) 2.2 % 0-5 [facility] Work Phone: Glucose [Mass/Vol] 100 mg/dL 74-106 [facility] Work Phone: Comment on above: Fasting Glucose resu lt from 100 to 125 mg/dL suggests IMPAIRED HOMEOSTASIS per A.D.A. criteria. Neutrophils (Bld) [#/Vol] 3.2 10*3/uL 2.0-7.7 [facility] Work Phone: Neutrophils/100 WBC (Bld) 59.5 % 47-70 [facility] Work Phone: Potassium [Moles/Vol] 3.7 mmol/L 3.5-5.1 [facility] Work Phone: Sodium [Moles/Vol] 139 mmol/L 136-145 [facility] Work Phone: WBC (Bld) [#/Vol] 5.4 10*3/uL 4.4-11.0 [facility] Work Phone: Blood erythrocytes count (nu mber/volume)on 02-09-2022 RBC (Bld) [#/Vol] 3.23 10*6/uL 4.2-5.4 [facility] Work Phone: Blood hemoglobin measurement (mass/volume)on 02-09-2022 Hemoglobin (Bld) [Mass/Vol] 9.8 g/dL 12.0-15.0 [facility] Work Phone: [phone] Blood lymphocytes/100 leukoc yteson 02-09-2022 Lymphocytes/100 WBC (Bld) 28.6 % 19-41 [facility] Work Phone: [phone] Blood monocytes/100 leukocyt eson 02-09-2022 Monocytes/100 WBC (Bld) 8.2 % 0-10 [facility] Work Phone: Blood platelet mean volumeon 02-09-2022 Platelet mean volume (Bld) [Entitic vol] 9.1 fL 6.2-12.0 [facility] Work Phone: Determination of erythrocyte mean corpuscular volume (MCV)on 02-09-2022 MCV (RBC) [Entitic vol] 91.6 fL 81-99 [facility] Work Phone: Hematocrit Auto (Bld) [Volum e fraction]on 02-09-2022 Hematocrit (Bld) [Volume fraction] 29.6 % 37-47 [facility] Work Phone: [phone] Laboratory - Chemistry and C hemistry - challengeon 02-09-2022 CO2 [Moles/Vol] 27.0 mmol/L 21.0-32.0 [facility] Work Phone: Urea nitrogen/Creatinine [Mass ratio] 20.0 mg/mg 10-20 [facility] Work Phone: [phone] Laboratory - Hematology and Cell countson 02-09-2022 Erythrocyte distribution width (RBC) [Entitic vol] 51.8 fL 35.1-43.9 [facility] Work Phone: [phone] Erythrocyte distribution width (RBC) [Ratio] 15.8 % 11.6-14.6 [facility] Work Phone: Immature granulocytes/100 WBC (Bld) 0.600 % 0.0-0.9 [facility] Work Phone: [phone] Comment on above: IG% - Immature Granu locytes (promyelocytes, myelocytes and metamyelocytes) > 1% indicates that a LEFT SHIFT is Present. MCH (RBC) [Entitic mass] 30.3 pg 27.0-32.0 [facility] Work Phone: [phone] Nucleated RBC/100 WBC (Bld) [Ratio] 0 % 0-5 [facility] Work Phone: [phone] MCHC Auto (RBC) [Mass/Vol]on 02-09-2022 MCHC (RBC) [Mass/Vol] 33.1 g/dL 32-36 [facility] Work Phone: No Panel Informationon 02-09 Estimated Creatinine Clearance Calc 44.80 ml/min [facility] Work Phone: [phone] Estimated GFR (MDRD) Amer 138 mL/min >60 [facility] Work Phone: [phone] Comment on above: GFR Calc Estimated GFR (MDRD) Non-Af Amer 114 mL/min >60 [facility] Work Phone: [phone] Comment on above: Non- GFR Calc Platelets bldon 02-09-2022 Platelets (Bld) [#/Vol] 404 10*3/uL 150-450 [facility] Work Phone: [phone] Serum or plasma calcium guy urement (mass/volume)on 02-09-2022 Calcium [Mass/Vol] 9.0 mg/dL 8.5-10.1 [facility] Work Phone: [phone] Serum or plasma creatinine m easurement (mass/volume)on 02-09-2022 Creatinine [Mass/Vol] 0.55 mg/dL 0.55-1.02 [facility] Work Phone: [phone] Comment on above: The validity of the calculated GFR & GFRAA in patients over 70 years has not been determined. Clinical correlation is essential. Serum or plasma urea nitroge n measurement (mass/volume)on 02-09-2022 Urea nitrogen [Mass/Vol] 11 mg/dL 7-18 [facility] Work Phone: Thin prep Papanicolaou smear with manual screeningon 02-09-2022 Thin prep Papanicolaou smear with manual screening 4 5-15 [facility] Work Phone: Absolute lymphocyte countOrd ered By: Dr. Crawford on 02-01-2022 Lymphocytes Auto (Unsp spec) [#/Vol] 1.61 10*3/uL 0.83-4.51 [facility] Basophil percentageOrdered B y: Dr. Crawford on 02-01-2022 Basophils/100 WBC (Bld) 0.4 % 0-1 [facility] Eosinophils/100 WBC (Bld) 1.7 % 0-5 [facility] Neutrophils (Bld) [#/Vol] 6.1 10*3/uL 2.0-7.7 [facility] Neutrophils/100 WBC (Bld) 67.2 % 47-70 [facility] WBC (Bld) [#/Vol] 9.1 10*3/uL 4.4-11.0 [facility] Basophil percentageOrdered B y: Dr. Saleem on 02-01-2022 Bilirubin [Mass/Vol] 0.50 mg/dL 0.20-1.00 [facility] Comment on above: For patients on eltr ombopag therapy, use of Dimension [place] TBIL is not recommended. Chloride [Moles/Vol] 108 mmol/L 98-107 [facility] Glucose [Mass/Vol] 102 mg/dL 74-106 [facility] Comment on above: Fasting Glucose resu lt from 100 to 125 mg/dL suggests IMPAIRED HOMEOSTASIS per A.D.A. criteria. Potassium [Moles/Vol] 4.2 mmol/L 3.5-5.1 [facility] Protein [Mass/Vol] 5.1 g/dL 6.4-8.2 [facility] Sodium [Moles/Vol] 140 mmol/L 136-145 [facility] Blood erythrocytes count (nu mber/volume)Ordered By: Dr. Crawford on 02-01-2022 RBC (Bld) [#/Vol] 3.01 10*6/uL 4.2-5.4 [facility] Blood hemoglobin measurement (mass/volume)Ordered By: Dr. Crawford on 02-01-2022 Hemoglobin (Bld) [Mass/Vol] 8.9 g/dL 12.0-15.0 [facility] Blood lymphocytes/100 leukoc ytesOrdered By: Dr. Crawford on 02-01-2022 Lymphocytes/100 WBC (Bld) 17.8 % 19-41 [facility] Blood monocytes/100 leukocyt esOrdered By: Dr. Crawford on 02-01-2022 Monocytes/100 WBC (Bld) 11.7 % 0-10 [facility] Blood platelet mean volumeOr dered By: Dr. Crawford on 02-01-2022 Platelet mean volume (Bld) [Entitic vol] 10.0 fL 6.2-12.0 [facility] COVID-19 virus antigen assay Ordered By: Dr. Crawford on 02-01-2022 SARS-CoV-2 (COVID-19) Ag IA.rapid Ql (Resp) [facility] Determination of erythrocyte mean corpuscular volume (MCV)Ordered By: Dr. Crawford on 02-01-2022 MCV (RBC) [Entitic vol] 89.0 fL 81-99 [facility] Hematocrit Auto (Bld) [Volum e fraction]Ordered By: Dr. Crawford on 02-01-2022 Hematocrit (Bld) [Volume fraction] 26.8 % 37-47 [facility] Laboratory - Chemistry and C hemistry - challengeOrdered By: Dr. Saleem on 02-01-2022 ALP [Catalytic activity/Vol] 94 U/L 45-117 [facility] ALT [Catalytic activity/Vol] 21 U/L 13-56 [facility] CO2 [Moles/Vol] 28.0 mmol/L 21.0-32.0 [facility] Globulin (S) [Mass/Vol] 2.7 g/dL 2.2-4.2 [facility] Urea nitrogen/Creatinine [Mass ratio] 18.8 mg/mg 10-20 [facility] Laboratory - Hematology and Cell countsOrdered By: Dr. Crawford on 02-01-2022 Erythrocyte distribution width (RBC) [Entitic vol] 43.7 fL 35.1-43.9 [facility] Erythrocyte distribution width (RBC) [Ratio] 13.4 % 11.6-14.6 [facility] Immature granulocytes/100 WBC (Bld) 1.200 % 0.0-0.9 [facility] Comment on above: IG% - Immature Granu locytes (promyelocytes, myelocytes and metamyelocytes) > 1% indicates that a LEFT SHIFT is Present. MCH (RBC) [Entitic mass] 29.6 pg 27.0-32.0 [facility] Nucleated RBC/100 WBC (Bld) [Ratio] 0.4 % 0-5 [facility] MCHC Auto (RBC) [Mass/Vol]Or dered By: Dr. Crawford on 02-01-2022 MCHC (RBC) [Mass/Vol] 33.2 g/dL 32-36 [facility] No Panel InformationOrdered By: Dr. Saleem on 02-01-2022 Estimated Creatinine Clearance Calc 44.80 ml/min [facility] Estimated GFR (MDRD) Amer 106 mL/min >60 [facility] Comment on above: GFR Calc Estimated GFR (MDRD) Non-Af Amer 87 mL/min >60 [facility] Comment on above: Non- GFR Calc Platelets bldOrdered By: Dr. Crawford on 02-01-2022 Platelets (Bld) [#/Vol] 202 10*3/uL 150-450 [facility] Serum or plasma albumin guy urement (mass/volume)Ordered By: Dr. Saleem on 02-01-2022 Albumin [Mass/Vol] 2.4 g/dL 3.2-5.0 [facility] Serum or plasma albumin/glob ulin mass ratioOrdered By: Dr. Saleem on 02-01-2022 Albumin/Globulin [Mass ratio] 0.9 {ratio} 0.9-2.4 [facility] Serum or plasma calcium guy urement (mass/volume)Ordered By: Dr. Saleem on 02-01-2022 Calcium [Mass/Vol] 8.8 mg/dL 8.5-10.1 [facility] Serum or plasma creatinine m easurement (mass/volume)Ordered By: Dr. Saleem on 02-01-2022 Creatinine [Mass/Vol] 0.69 mg/dL 0.55-1.02 [facility] Comment on above: The validity of the calculated GFR & GFRAA in patients over 70 years has not been determined. Clinical correlation is essential. Serum or plasma urea nitroge n measurement (mass/volume)Ordered By: Dr. Saleem on 02-01-2022 Urea nitrogen [Mass/Vol] 13 mg/dL 7-18 [facility] Thin prep Papanicolaou smear with manual screeningOrdered By: Dr. Saleem on 02-01-2022 Thin prep Papanicolaou smear with manual screening 27 U/L 15-37 [facility] Thin prep Papanicolaou smear with manual screening 4 5-15 [facility] Hemoglobin in reticulocytes (mass per reticulocyte)Ordered By: Dr. Saleem on 01-31-2022 Hemoglobin (Reticulocytes) [Entitic mass] 31.8 pg 30-35 [facility] Iron measurement (mass/mass) Ordered By: Dr. Saleem on 01-31-2022 Iron (Unsp spec) [Mass/Mass] 48 ug/dL 50-170 [facility] No Panel InformationOrdered By: Dr. Saleem on 01-31-2022 Immature Reticulocyte Fraction 11.90 % 3.00-15.90 [facility] Reticulocyte Count 2.09 % 0.5-1.5 [facility] Total Iron Binding Capacity 385 ug/dL 250-450 [facility] Serum or plasma ferritin miguel surement (mass/volume)Ordered By: Dr. Saleem on 01-31-2022 Ferritin [Mass/Vol] 122 ng/mL 8-252 [facility] Serum or plasma iron saturat ion measurement (mass fraction)Ordered By: Dr. Saleem on 01-31-2022 Iron saturation [Mass fraction] 12.5 % 15.0-55.0 [facility] Absolute lymphocyte counton 01-29-2022 Lymphocytes Auto (Unsp spec) [#/Vol] 1.51 10*3/uL 0.83-4.51 [facility] Work Phone: Basophil percentageon 2021 Potassium [Moles/Vol] 4.2 mmol/L 3.5-5.1 [facility] Work Phone: Comment on above: Slight Hemolysis, Re sult may be falsely increased. Basophils/100 WBC (Bld) 0.5 % 0-1 [facility] Work Phone: Bilirubin [Mass/Vol] 0.50 mg/dL 0.20-1.00 [facility] Work Phone: Comment on above: For patients on eltr ombopag therapy, use of Dimension [place] TBIL is not recommended. Chloride [Moles/Vol] 106 mmol/L 98-107 [facility] Work Phone: Eosinophils/100 WBC (Bld) 1.6 % 0-5 [facility] Work Phone: Glucose [Mass/Vol] 104 mg/dL 74-106 [facility] Work Phone: Comment on above: Fasting Glucose resu lt from 100 to 125 mg/dL suggests IMPAIRED HOMEOSTASIS per A.D.A. criteria. Neutrophils (Bld) [#/Vol] 5.9 10*3/uL 2.0-7.7 [facility] Work Phone: Neutrophils/100 WBC (Bld) 73.1 % 47-70 [facility] Work Phone: Protein [Mass/Vol] 6.3 g/dL 6.4-8.2 [facility] Work Phone: Sodium [Moles/Vol] 139 mmol/L 136-145 [facility] Work Phone: WBC (Bld) [#/Vol] 8.0 10*3/uL 4.4-11.0 [facility] Work Phone: Blood erythrocytes count (nu mber/volume)on 01-29-2022 RBC (Bld) [#/Vol] 4.29 10*6/uL 4.2-5.4 [facility] Work Phone: Blood hemoglobin measurement (mass/volume)on 01-29-2022 Hemoglobin (Bld) [Mass/Vol] 12.3 g/dL 12.0-15.0 [facility] Work Phone: Blood lymphocytes/100 leukoc yteson 01-29-2022 Lymphocytes/100 WBC (Bld) 18.8 % 19-41 [facility] Work Phone: Blood monocytes/100 leukocyt eson 01-29-2022 Monocytes/100 WBC (Bld) 5.6 % 0-10 [facility] Work Phone: Blood platelet mean volumeon 01-29-2022 Platelet mean volume (Bld) [Entitic vol] 10.3 fL 6.2-12.0 [facility] Work Phone: Determination of erythrocyte mean corpuscular volume (MCV)on 01-29-2022 MCV (RBC) [Entitic vol] 89.3 fL 81-99 [facility] Work Phone: Hematocrit Auto (Bld) [Volum e fraction]on 01-29-2022 Hematocrit (Bld) [Volume fraction] 38.3 % 37-47 [facility] Work Phone: [phone] INR in Blood by Coagulation assayOrdered By: Dr. Bliss on 01-29-2022 INR Coag (Bld) [Relative time] 1.0 {INR} [facility] Laboratory - Chemistry and C hemistry - challengeon 01-29-2022 ALP [Catalytic activity/Vol] 131 U/L 45-117 [facility] Work Phone: ALT [Catalytic activity/Vol] 35 U/L 13-56 [facility] Work Phone: [phone] CO2 [Moles/Vol] 23.0 mmol/L 21.0-32.0 [facility] Work Phone: Globulin (S) [Mass/Vol] 3.0 g/dL 2.2-4.2 [facility] Work Phone: [phone] Urea nitrogen/Creatinine [Mass ratio] 17.2 mg/mg 10-20 [facility] Work Phone: [phone] Laboratory - CoagulationOrde red By: Dr. Bliss on 01-29-2022 aPTT Coag (Bld) [Time] 25.6 s 24.1-36.2 [facility] PT Coag (PPP) [Time] 12.5 s 11.7-14.9 [facility] Laboratory - Hematology and Cell countson 01-29-2022 Erythrocyte distribution width (RBC) [Entitic vol] 42.6 fL 35.1-43.9 [facility] Work Phone: [phone] Erythrocyte distribution width (RBC) [Ratio] 13.0 % 11.6-14.6 [facility] Work Phone: [phone] Immature granulocytes/100 WBC (Bld) 0.400 % 0.0-0.9 [facility] Work Phone: [phone] Comment on above: IG% - Immature Granu locytes (promyelocytes, myelocytes and metamyelocytes) > 1% indicates that a LEFT SHIFT is Present. MCH (RBC) [Entitic mass] 28.7 pg 27.0-32.0 [facility] Work Phone: [phone] Nucleated RBC/100 WBC (Bld) [Ratio] 0 % 0-5 [facility] Work Phone: [phone] MCHC Auto (RBC) [Mass/Vol]on 01-29-2022 MCHC (RBC) [Mass/Vol] 32.1 g/dL 32-36 [facility] Work Phone: [phone] No Panel InformationOrdered By: Dr. Quinn on 01-29-2022 Troponin I High Sensitivity 6 pg/mL 3.0-54.0 [facility] Comment on above: Please Note: New Darline t Units and Gender Specific Reference Ranges. For more information see Policy Stat Procedure [place] High Sensitivity Troponin (TNIH) and attachments. No Panel Informationon 01-29 Estimated Creatinine Clearance Calc 55.31 ml/min [facility] Work Phone: [phone] Estimated GFR (MDRD) Amer 88 mL/min >60 [facility] Work Phone: [phone] Comment on above: GFR Calc Estimated GFR (MDRD) Non-Af Amer 73 mL/min >60 [facility] Work Phone: Comment on above: Non- GFR Calc Platelets bldon 01-29-2022 Platelets (Bld) [#/Vol] 248 10*3/uL 150-450 [facility] Work Phone: Serum or plasma albumin guy urement (mass/volume)on 01-29-2022 Albumin [Mass/Vol] 3.3 g/dL 3.2-5.0 [facility] Work Phone: Serum or plasma albumin/glob ulin mass ratioon 01-29-2022 Albumin/Globulin [Mass ratio] 1.1 {ratio} 0.9-2.4 [facility] Work Phone: Serum or plasma calcium guy urement (mass/volume)on 01-29-2022 Calcium [Mass/Vol] 8.1 mg/dL 8.5-10.1 [facility] Work Phone: Serum or plasma creatinine m easurement (mass/volume)on 01-29-2022 Creatinine [Mass/Vol] 0.81 mg/dL 0.55-1.02 [facility] Work Phone: Comment on above: The validity of the calculated GFR & GFRAA in patients over 70 years has not been determined. Clinical correlation is essential. Serum or plasma urea nitroge n measurement (mass/volume)on 01-29-2022 Urea nitrogen [Mass/Vol] 14 mg/dL 7-18 [facility] Work Phone: Thin prep Papanicolaou smear with manual screeningon 01-29-2022 Thin prep Papanicolaou smear with manual screening 24 U/L 15-37 [facility] Work Phone: Thin prep Papanicolaou smear with manual screening 10 5-15 [facility] Work Phone: Laboratory - Microbiology an d Antimicrobial susceptibilityon 07-28-2021 SARS-CoV-2 (COVID-19) RNA [place]+probe Ql (Unsp spec) Detected [facility] Work Phone: No Panel Informationon 07-28 Influenza Types A,B Rapid (Clinic) Not detected [facility] Work Phone: No Panel Informationon 03-26 SARS-CoV-2 Antigen (Rapid) [facility] Work Phone: No Panel Informationon 02-27 SARS-CoV-2 Antigen (Rapid) [facility] Work Phone: CNPTOUTREACHon 05-13-2020 CNPTOUTREACH Patient Outreach ([facility]OV[facility]) JAEL HUGGINS ([id number]) 1945 F Date Time Provider Department 05/13/20 ANTHONY DUONG During your visit today, we recorded the following information about you: Allergies As of Date: 05/13/2020 Noted Allergy Reaction SEASONAL ALLERGIES 03/24/2018 14 - Other: See Comments Comments: Sneeze, cough, watey eyes Date Reviewed: Never Reviewed Order(s):SARS-COVID VACCINE 1ST DOSE APPT [[id number]] Order #: [id number] FUTURE Prescriptions as of 05/13/2020 Sig: LEVOTHYROXINE 75 MCG CAPSULE Take 75 mcg by mouth once darron* Problem List As Of Date: 05/13/2020 (None) Letter Text Encounter Status:Closed by [employer], [employer] on 05/16/20 Normal [facility] COVID-19 virus antigen assay SARS-CoV-2 (COVID-19) Ag IA.rapid Ql (Resp) [facility] Work Phone: Gram stain for investigation of transfusion reaction Microscopic observation Gram stain Nom (Unsp spec) [facility] Work Phone: Vital Signs Date Time Vital Sign Value Performing Clinician Margoth gonzales 08-01-2024 09:53-0400 Body height 167.[address] Lucio Ayoub MD Work Phone: [facility] 08-01-2024 09:53-0400 Body mass index (BMI) [Ratio] 25.8 kg/m2 Dr. Lucio Ayoub MD Work Phone: [facility] 08-01-2024 09:53-0400 Body weight 72.[address] Lucio Ayoub MD Work Phone: [facility] 06-02-2023 08:56-0400 Body height 162.56 cm [facility] 06-02-2023 08:56-0400 Body temperature 96.9 [degF] [facility] 06-02-2023 08:56-0400 Diastolic blood pressure 79 mm[Hg] [facility] 06-02-2023 08:56-0400 Heart rate 83 /min [facility] 06-02-2023 08:56-0400 Respiratory rate 14 /min [facility] 06-02-2023 08:56-0400 SaO2% (BldA) [Mass fraction] 99 % [facility] 06-02-2023 08:56-0400 Systolic blood pressure 151 mm[Hg] [facility] 02-20-2022 14:00-0500 Body temperature 98.7 [degF] Dr. Lucio Ayoub Work Phone: [facility] 02-20-2022 14:00-0500 Diastolic blood pressure 60 mm[Hg] Dr. Lucio Ayoub Work Phone: [facility] 02-20-2022 14:00-0500 Heart rate 87 /min Dr. Lucio Ayoub Work Phone: [facility] 02-20-2022 14:00-0500 Respiratory rate 18 /min Dr. Lucio Ayoub Work Phone: [facility] 02-20-2022 14:00-0500 SaO2% (BldA) [Mass fraction] 95 % Dr. Lucio Ayoub Work Phone: [facility] 02-20-2022 14:00-0500 Systolic blood pressure 153 mm[Hg] Dr. Lucio Ayoub Work Phone: [facility] 02-17-2022 15:21-0500 Body height 167.[address] Lucio Ayoub Work Phone: [facility] 02-17-2022 15:21-0500 Body weight 70.[address] Lucio Ayoub Work Phone: [facility] 02-15-2022 13:35-0500 Body temperature 98.2 [degF] Dr. Lucio Ayoub Work Phone: [facility] Work Phone: 02-15-2022 13:35-0500 Diastolic blood pressure 55 mm[Hg] Dr. Lucio Ayoub Work Phone: [facility] Work Phone: 02-15-2022 13:35-0500 Heart rate 71 /min Dr. Lucio Ayoub Work Phone: [facility] Work Phone: 02-15-2022 13:35-0500 Respiratory rate 18 /min Dr. Lucio Ayoub Work Phone: [facility] Work Phone: 02-15-2022 13:35-0500 SaO2% (BldA) [Mass fraction] 96 % Dr. Lucio Ayoub Work Phone: [facility] Work Phone: 02-15-2022 13:35-0500 Systolic blood pressure 132 mm[Hg] Dr. Lucio Ayoub Work Phone: [facility] Work Phone: 02-10-2022 15:02-0500 Body height 167.[address] Lucio Ayoub Work Phone: [facility] Work Phone: 02-10-2022 15:02-0500 Body weight 71.[address] Lucio Ayoub Work Phone: [facility] Work Phone: 02-01-2022 16:27-0500 Body temperature 98.4 [degF] Dr. Lucio Ayoub Work Phone: [facility] 02-01-2022 16:27-0500 Diastolic blood pressure 90 mm[Hg] Dr. Lucio Ayoub Work Phone: [facility] 02-01-2022 16:27-0500 Heart rate 101 /min Dr. Lucio Ayoub Work Phone: [facility] 02-01-2022 16:27-0500 Respiratory rate 16 /min Dr. Lucio Ayoub Work Phone: [facility] 02-01-2022 16:27-0500 SaO2% (BldA) [Mass fraction] 95 % Dr. Lucio Ayoub Work Phone: [facility] 02-01-2022 16:27-0500 Systolic blood pressure 145 mm[Hg] Dr. Lucio Ayoub Work Phone: [facility] 02-01-2022 14:57-0500 Inhaled oxygen flow rate 2 L/min Dr. Lucio Ayoub Work Phone: [facility] 02-01-2022 05:22-0500 Body weight 78.[address] Lucio Ayoub Work Phone: [facility] 01-29-2022 18:12-0500 Body mass index (BMI) [Ratio] 29.9 kg/m2 Dr. Lucio Ayoub Work Phone: [facility] 01-29-2022 12:11-0500 Body height 167.[address] Lucio Ayoub Work Phone: [facility] Work Phone: 01-29-2022 12:11-0500 Body mass index (BMI) [Ratio] 29.9 kg/m2 Dr. Lucio Ayoub Work Phone: [facility] Work Phone: 01-29-2022 12:11-0500 Body temperature 97 [degF] Dr. Lucio Ayuob Work Phone: [facility] Work Phone: 01-29-2022 12:11-0500 Body weight 84.[address] Lucio Ayoub Work Phone: [facility] Work Phone: 01-29-2022 12:11-0500 Heart rate 89 /min Dr. Lucio Ayoub Work Phone: [facility] Work Phone: 01-29-2022 12:11-0500 Respiratory rate 16 /min Dr. Lucio Ayoub Work Phone: [facility] Work Phone: 01-29-2022 12:11-0500 SaO2% (BldA) [Mass fraction] 98 % Dr. Lucio Ayoub Work Phone: [facility] Work Phone: 01-29-2022 11:06-0500 Diastolic blood pressure 66 mm[Hg] Dr. Lucio Ayoub Work Phone: [facility] Work Phone: 01-29-2022 11:06-0500 Systolic blood pressure 136 mm[Hg] Dr. Lucio Ayoub Work Phone: [facility] Work Phone: 09-12-2021 15:48-0400 Body height 167.[address] uLcio Ayoub Work Phone: [facility] Work Phone: 09-12-2021 15:48-0400 Body mass index (BMI) [Ratio] 23.6 kg/m2 Dr. Lucio Ayoub Work Phone: [facility] Work Phone: 09-12-2021 15:48-0400 Body temperature 98 [degF] Dr. Lucio Ayoub Work Phone: [facility] Work Phone: 09-12-2021 15:48-0400 Body weight 66.[address] Lucio Ayoub Work Phone: [facility] Work Phone: 09-12-2021 15:48-0400 Diastolic blood pressure 115 mm[Hg] Dr. Lucio Ayoub Work Phone: [facility] Work Phone: 09-12-2021 15:48-0400 Heart rate 109 /min Dr. Lucio Ayoub Work Phone: [facility] Work Phone: 09-12-2021 15:48-0400 Respiratory rate 16 /min Dr. Lucio Ayoub Work Phone: [facility] Work Phone: 09-12-2021 15:48-0400 SaO2% (BldA) [Mass fraction] 98 % Dr. Lucio Ayoub Work Phone: [facility] Work Phone: 09-12-2021 15:48-0400 Systolic blood pressure 169 mm[Hg] Dr. Lucio Ayoub Work Phone: [facility] Work Phone: 07-28-2021 09:26-0400 Body temperature 99.1 [degF] Dr. Lucio Ayoub Work Phone: [facility] Work Phone: 07-28-2021 09:26-0400 Diastolic blood pressure 78 mm[Hg] Dr. Lucio Ayoub Work Phone: [facility] Work Phone: 07-28-2021 09:26-0400 Heart rate 91 /min Dr. Lucio Ayoub Work Phone: [facility] Work Phone: 07-28-2021 09:26-0400 Respiratory rate 15 /min Dr. Lucio Ayoub Work Phone: [facility] Work Phone: 07-28-2021 09:26-0400 SaO2% (BldA) [Mass fraction] 96 % Dr. Lucio Ayoub Work Phone: [facility] Work Phone: 07-28-2021 09:26-0400 Systolic blood pressure 126 mm[Hg] Dr. Lucio Ayoub Work Phone: [facility] Work Phone: 04-21-2021 00:12-0500 Body mass index (BMI) [Ratio] 24.5 kg/m2 Dr. Lucio Ayoub Work Phone: [facility] Work Phone: 04-20-2021 23:12-0500 Body mass index (BMI) [Ratio] 24.5 kg/m2 Dr. Lucio Ayoub Work Phone: [facility] Work Phone: 04-09-2021 10:12-0500 Body height 167.[address] Lucio Ayoub Work Phone: [facility] Work Phone: 04-09-2021 10:12-0500 Body mass index (BMI) [Ratio] 24.5 kg/m2 Dr. Lucio Ayoub Work Phone: [facility] Work Phone: 04-09-2021 10:12-0500 Body temperature 97 [degF] Dr. Lucio Ayoub Work Phone: [facility] Work Phone: 04-09-2021 10:12-0500 Body weight 68.[address] Lucio Ayoub Work Phone: [facility] Work Phone: 04-09-2021 10:12-0500 Diastolic blood pressure 74 mm[Hg] Dr. Lucio Ayoub Work Phone: [facility] Work Phone: 04-09-2021 10:12-0500 Heart rate 74 /min Dr. Lucio Ayoub Work Phone: [facility] Work Phone: 04-09-2021 10:12-0500 Respiratory rate 16 /min Dr. Lucio Ayoub Work Phone: [facility] Work Phone: 04-09-2021 10:12-0500 SaO2% (BldA) [Mass fraction] 97 % Dr. Lucio Ayoub Work Phone: [facility] Work Phone: 04-09-2021 10:12-0500 Systolic blood pressure 126 mm[Hg] Dr. Lucio Ayuob Work Phone: [facility] Work Phone: 03-20-2021 23:05-0500 Body mass index (BMI) [Ratio] 24.5 kg/m2 Dr. Lucio Ayoub Work Phone: [facility] Work Phone: 12-19-2020 00:19-0400 Body mass index (BMI) [Ratio] 24.5 kg/m2 Dr. Lucio Ayoub Work Phone: [facility] Work Phone: Encounters Encounter Date Encounter Type Care Provider Facility Start: 08-01-2024 End: 08-01-[address] Braxton Salas DO -[facility] Work Phone: Start: 08-01-2024 End: 08-01-[address] Lucio Ayoub MD Work Phone: [facility] Work Phone: Start: 07-16-2024 End: 07-16-[address] Lucio Ayoub MD -Laboratory Work Phone: Start: 07-16-2024 End: 07-16-2024 ambulatory Lucio Ayoub Facility:[facility] Start: 06-13-2024 ambulatory Lucio Ayoub Facility:[facility] Start: 05-22-2024 End: 05-22-[address] Lucio Ayoub MD Work Phone: [facility] Work Phone: Start: 05-22-2024 End: 05-22-[address] Lucio Ayoub MD -Laboratory, Phy Office 3rd Flr Start: 05-22-2024 End: 05-22-2024 ambulatory Lucio Chi Mega Facility:[facility] Start: 04-24-2024 End: 04-24-[address] Lucio Ayoub MD Work Phone: [facility] Work Phone: Start: 04-24-2024 End: 04-24-[address] Lucio Ayoub MD -Physical Therapy Work Phone: Start: 04-06-2024 End: 04-06-[address] Lucio Ayoub MD -Laboratory, Phy Office 3rd Flr Start: 04-06-2024 End: 04-06-2024 ambulatory Lucio Chi Mega Facility:[facility] Start: 01-25-2024 ambulatory Ronnell AVILA Facilit y:[facility] Start: 01-25-2024 Non-patient / Non-visit Dr. Rosario mendosa MD -[facility] Start: 01-25-2024 End: 01-25-2024 Patient encounter procedure Ronnell Fontenot PA-C -Pulmonary Services/Neurology Work Phone: Start: 01-25-2024 End: 01-25-2024 ambulatory Ronnell AVILA Facility:[facility] Start: 01-18-2024 End: 01-18-2024 ambulatory Lucio Chi Mega Facility:[facility] Start: 01-03-2024 ambulatory Lucio Chi Mega Facility:[facility] Start: 01-03-2024 End: 01-03-2024 ambulatory Lucio Chi Mega Facility:[facility] Start: 11-22-2023 End: 11-22-2023 ambulatory Lucoi Chi Mega Facility:[facility] Start: 08-22-2023 End: 08-22-2023 Emergency department patient visit Tommy Huff Facility:[facility] Start: 07-14-2023 End: 07-14-2023 ambulatory [facility] Work Phone: Start: 07-14-2023 End: 07-14-2023 Patient encounter procedure [facility]-Radiology, [facility] Work Phone: Start: 06-29-2023 End: 06-29-2023 ambulatory [facility] Work Phone: Start: 06-29-2023 End: 06-29-2023 Patient encounter procedure [facility]-Pulmonary Services/Neurology Work Phone: Start: 06-09-2023 End: 06-09-2023 ambulatory [facility] Work Phone: Start: 06-09-2023 End: 06-09-2023 Patient encounter procedure [facility]-Laboratory, Phy Office 3rd Flr Start: 06-02-2023 End: 06-02-2023 Emergency department patient visit [facility]-Emergency Department Work Phone: Start: 04-25-2023 End: 04-25-2023 Patient encounter procedure [facility]-Laboratory, Phy Office 3rd Flr Start: 04-19-2022 End: 04-19-[address] Lucio Ayoub Work Phone: [facility] Work Phone: Start: 04-19-2022 End: 04-19-[address] [facility] Start: 03-24-2022 End: 03-24-[address] Lucio Ayoub Work Phone: [facility] Start: 02-12-2022 Non-patient / Non-visit Dr. Adriano Ayoub Work Phone: [facility] Start: 02-12-2022 End: 02-12-[address] Lucio Ayoub Work Phone: [facility] Work Phone: Start: 02-12-2022 End: 02-12-[address] Lucio Ayoub Work Phone: [facility]-Cardiovascular Services Start: 02-12-2022 End: 02-12-[address] Lucio Ayoub Work Phone: [facility] Start: 02-01-2022 End: 02-20-2022 Evaluation and management of inpatient Dr. Lucio Ayoub Work Phone: [facility]-Transitional Care Unit Start: 02-01-2022 Non-patient / Non-visit Dr. Adriano Ayoub Work Phone: [facility] Start: 01-31-2022 Non-patient / Non-visit Dr. Adriano Ayoub Work Phone: [facility] Start: 01-30-2022 Non-patient / Non-visit Dr. Adriano Ayoub Work Phone: [facility] Start: 01-30-2022 Non-patient / Non-visit Dr. Adriano Ayoub Work Phone: [facility] Start: 01-29-2022 End: 01-29-2022 Non-patient / Non-visit Dr. Lucio Ayoub Work Phone: [facility] Start: 01-29-2022 Non-patient / Non-visit Dr. Adriano Ayoub Work Phone: [facility] Start: 01-29-2022 Non-patient / Non-visit Dr. Adriano Ayoub Work Phone: [facility] Start: 01-29-2022 End: 02-01-2022 Evaluation and management of inpatient Dr. Lucio Ayoub Work Phone: [facility]-Medical Surgical 3 Start: 09-30-2021 End: 09-30-[address] [facility] Start: 09-12-2021 End: 09-12-2021 Emergency department patient [facility] Start: 08-26-[address] [facility] robins [facility] Start: 07-28-2021 End: 07-28-[address] Lucio Ayoub Work Phone: [facility] Start: 06-11-2021 End: 06-18-[address] Lucio Ayoub Work Phone: [facility] Start: 04-09-2021 End: 04-09-[address] Lucio Ayoub Work Phone: [facility] Start: 03-26-2021 End: 04-20-[address] Lucio Ayoub Work Phone: [facility] Start: 02-27-2021 End: 03-20-[address] Lucio Ayoub Work Phone: [facility] Procedures Date Procedure Procedure Detail Performing Clinician [...] Activity Detail Author Start: 08-27-2024 ambulatory Ambulatory Facility:[facility] Start: 06-02-2023 Simple repair scalp/neck/ax/genit/trunk 2.5cm/< RPR S/N/AX/GEN/TRNK 2.5CM/< [facility] Start: 06-02-2023 [facility] Start: 03-02-2022 Blood chemistry [facility] Work Phone: Start: 02-23-2022 Blood chemistry [facility] Work Phone: Start: 02-20-2022 Patient discharge [facility] Start: 02-19-2022 Development of care plan [facility] Start: 02-19-2022 Contact precautions [facility] Start: 02-19-2022 [facility] Start: 02-17-2022 Referral to service [facility] Start: 02-16-2022 Blood chemistry [facility] Work Phone: Start: 02-11-2022 Application of device [facility] Start: 02-02-2022 Speech therapy management [facility] Start: 02-02-2022 Development of care plan [facility] Start: 02-02-2022 [facility] [facility] Work Phone: Start: 02-02-2022 Developing a treatment plan [facility] Start: 02-02-2022 Application of intermittent pneumatic compression device [facility] Start: 02-02-2022 Speech therapy assessment [facility] Start: 02-02-2022 [facility] Start: 02-01-2022 Wound care [facility] Work Phone: Start: 02-01-2022 End: 02-01-2022 [facility] Start: 02-01-2022 Following clinical pathway protocol [facility] Start: 02-01-2022 Admission procedure [facility] Start: 02-01-2022 Measuring intake and output [facility] Start: 02-01-2022 Patient referral to dietitian [facility] Start: 02-01-2022 Referral to occupational therapist [facility] Start: 02-01-2022 Referral to service [facility] Start: 02-01-2022 Vital signs measurements [facility] Start: 02-01-2022 [facility] Start: 02-01-2022 Patient discharge [facility] Start: 02-01-2022 End: 02-01-2022 Administration of blood product [facility] Start: 02-01-2022 [facility] Start: 02-01-2022 Transfusion of red blood cells [facility] Start: 01-31-2022 Care planning and problem solving actions [facility] Start: 01-30-2022 [facility] Start: 01-29-2022 Following clinical pathway protocol [facility] Start: 01-29-2022 End: 01-29-2022 [facility] Start: 01-29-2022 Assessment of risk of venous thromboembolism [facility] Start: 01-29-2022 Catheterization of vein [facility] Start: 01-29-2022 Incentive spirometry [facility] Start: 01-29-2022 Insertion of catheter into peripheral vein [facility] Start: 01-29-2022 Measuring intake and output [facility] Start: 01-29-2022 Providing care according to standard [facility] Start: 01-29-2022 Provision of activity privileges [facility] Start: 01-29-2022 Referral to occupational therapist [facility] Start: 01-29-2022 Referral to service [facility] Start: 01-29-2022 Ambulation therapy management [facility] Start: 01-29-2022 Application of device [facility] Start: 01-29-2022 Exercises [facility] Start: 01-29-2022 Following clinical pathway protocol [facility] Start: 01-29-2022 Introduction of urinary catheter [facility] Start: 01-29-2022 Neurovascular assessment [facility] Start: 01-29-2022 Oxygen therapy [facility] Start: 01-29-2022 Patient education [facility] Start: 01-29-2022 Provision of activity privileges [facility] Start: 01-29-2022 Referral to occupational therapist [facility] Start: 01-29-2022 Referral to service [facility] Start: 01-29-2022 Vital signs measurements [facility] Start: 01-29-2022 Wound care [facility] Start: 01-29-2022 End: 01-29-2022 [facility] Start: 01-29-2022 Fluoroscopic guidance O.R. Fluoro for C-Arm [facility] Work Phone: Start: 01-29-2022 Plain X-ray of hip Hip Min 2 Views (Portable) [facility] Work Phone: Start: 01-29-2022 Trochanteric Fixation Nail, Synthes (Right) Trochanteric Fixation Nail, Synthes (Right) [facility] Work Phone: Start: 01-29-2022 Consultation [facility] Start: 01-29-2022 Verification routine [facility] Work Phone: Start: 01-29-2022 Admission procedure [facility] Start: 01-29-2022 End: 01-29-2022 [facility] Start: 01-29-2022 Patient referral to dietitian [facility] Patient Education [facility] Work Phone: Patient referral [facility] Work Phone: Potassium [Moles/vol ume] in Serum or Plasma [facility] Work Phone: Respiratory microbia l culture Respiratory Culture [facility] Work Phone: Immunizations Immunization Date Immunization Notes Care Provider Fa ciliusman 05-13-2021 Shari (Moderna) Dr. Lucio Ayoub Work Phone: [facility] 12-04-2020 tetanus toxoid, redu jarad diphtheria toxoid, and acellular pertussis vaccine, adsorbed Dr. Lucio Ayoub Work Phone: [facility] Payers Date Payer Category Payer Medicaid [id number] 2023 Self-pay [id number] 2012 Medicare [id number] Unknown [id number] 2.16.8 [id number] Unknown [id number] 2.16.8 [id number] Unknown [id number] 2.16.8 [id number] Unknown [id number] 2.16.8 [id number] Unknown [id number] 2.16.8 [id number] Unknown [id number] 2.16.8 [id number] Unknown [id number] 2.16.8 [id number] Unknown [id number] 2.16.8 [id number] Unknown [id number] 2.16.8 [id number] Unknown [id number] 2.16.8 [id number] Unknown [id number] 2.16.8 [id number] Unknown [id number] 2.16.8 [id number] Unknown [id number] 2.16.8 [id number] Unknown [id number] 2.16.8 [id number] Social History Date Type Detail Facility Start: 04-09-2021 End: 06-02-2023 Tobacco smoking status NHIS Unknown if ever smoked [facility] Start: 1945 Sex Assigned At Female [facility] Start: 03-01-2024 End: 03-01-2024 Tobacco smoking status NHIS Never smoked tobacco (finding) [facility] Start: 05-24-2024 End: 06-02-2024 Sex Female (finding) [facility] NEGATED: Highlighted row [facility] Medical Equipment Procedure Code Equipment Code Equipment Origin al Text Equipment Identifier Dates X FDA Start: 01-29-2022 ([id number]) Orthopaedic bone screw, non-bioabsorbable, sterile [id number] FDA Start: 01-29-2022 Femur nail, sterile ()[id number] FDA Start: 01-29-2022 ([id number]) Spiral blade [id number] FDA Start: 01-29-2022 X FDA Start: 01-29-2022 X FDA Start: 01-29-2022 X FDA Start: 01-29-2022 X FDA Start: 01-29-2022 X FDA Start: 01-29-2022 X FDA Start: 01-29-2022 X FDA Start: 01-29-2022 X FDA Start: 01-29-2022 X FDA Start: 01-29-2022 Goals Date Patient Goal Desired Activity /State Functional Status Date Assessment Result Facility 02-20-2022 Functional status Ambulates [facility] Work Phone: 02-15-2022 Functional status Chair;Bathroom Privileg e [facility] Work Phone: 02-13-2022 Functional status Rolling Walker [facility] Work Phone: 02-01-2022 Functional status Ambulates;Bathroom Priv ilege [facility] Work Phone: Mental Status Date Assessment Result Facility 02-20-2022 Cognitive function Voice/Name [facility] Work Phone: 02-19-2022 Cognitive function Appropriate;Cooperativ e [facility] Work Phone: 02-15-2022 Cognitive function Voice/Name [facility] Work Phone: 02-10-2022 Cognitive function Appropriate;Cooperativ [facility] Work Phone: 02-01-2022 Cognitive function Voice/Name [facility] Work Phone: 09-12-2021 Cognitive function Level Of Cons ciousness Awake;Alert;Appropriate;Follow s Commands [facility] Work Phone: Evaluation note Note Date & Type Note Facility Evaluation note Diagnosis Onset Date Contusion of right knee acut e Strain of right knee acute [facility] Work Phone: Evaluation note Note Date & Type Note Facility Evaluation note Diagnosis Onset Date COVID-19 [facility] Work Phone: Evaluation note Note Date & Type Note Facility Evaluation note Diagnosis Onset Date Closed intertrochanteric fra cture of right hip acute Fall acute Thyroid disease [facility] Work Phone: Evaluation note Note Date & Type Note Facility Evaluation note Diagnosis Onset Date Closed intertrochanteric fra cture of right hip resolved Fall resolved Closed right hip fracture ac [place] Debility acute Hypothyroidism acute Iron deficiency anemia acute Closed right hip fracture ac [place] S/P right hip fracture acute [facility] Work Phone: Evaluation note Note Date & Type Note Facility Evaluation note Diagnosis Onset Date Closed intertrochanteric fra cture of right hip resolved Fall resolved Closed right hip fracture ac [place] Debility acute Hypothyroidism acute Iron deficiency anemia acute Closed right hip fracture ac [place] S/P right hip fracture acute S/P right hip fracture acute [facility] Work Phone: Evaluation note Note Date & Type Note Facility Evaluation note No assessment information availa ble [facility] Work Phone: Evaluation note Note Date & Type Note Facility Evaluation note Diagnosis Onset Date Resolution Carpal tunnel syndrome of right wrist noneactive August 01, 2024 9 :50am [facility] Work Phone: Reason for referral (narrative) Note Date & Type Note Facility Reason for referral (narrative) No reason for referral information available [facility] Work Phone: Summary Purpose Family History No Family History Records Found Relationship Condition Age at Onset Recorded Date/T esther mother Malignant neoplasm of breast Unknown sister Malignant neoplasm of breast Unknown sister Lymphoma Unknown Advance Directives No Advanced Directives Records Found Advance Directive Response Recorded Date/ Time Advance Directives No April 12, 2016 12:35pm Living Will No December 04, 2020 3:45pm Power of Wood Inspector No November 3:45pm Advance Directive Response Recorded Date/ Time Advance Directives No April 12, 2016 12:35pm Living Will No September 12, 2021 4:58pm Power of Wood Inspector No September 12 4:58pm Advance Directive Response Recorded Date/ Time Advance Directives No April 12, 2016 11:35am Living Will No January 29, 022 7:41am Power of Wood Inspector No January 29, 2022 7:41am Advance Directive Response Recorded Date/ Time Advance Directives No January 8:19am Living Will No February 08, 2 022 8:19am Power of Wood Inspector No February 08, 2022 8:19am Name of Medical Power of Wood Inspector JOANIE HUGGINS February 01, 2022 9:34pm Advance Directive Response Recorded Date/ Time Advance Directives No January 9:19am Living Will No June 02, 2023 8:56am Power of Wood Inspector No June 01 8:56am Advance Directive Response Recorded Date/ Time Living Will Yes August 22, 2023 2 :26pm Power of Wood Inspector Yes August 22, 2023 2:26pm Advance Directives No January 8:19am Advance Directive Response Recorded Date/ Time Advance Directives No January 9:19am Chief Complaint and Reason for Visit Chief Complaint [facility]-COVID 19 REQ UIRED TESTING [facility]-COVID 19 REQUIRED TESTING RIGHT KNEE SWOLLEN, FELL ON ICE RIGHT KNEE PAIN [facility]-COVID 19 REQUIRED TESTING Reason for Visit Contusion of right k nee Strain of right knee Chief Complaint [facility]-COVID 19 REQ UIRED TESTING COVID TEST/SYMPTOMATIC UNSTEADINESS ON FEET.RX HERE RIB PAIN Reason for Visit COVID-19 Chief Complaint [facility]OVID 19 REQ UIRED TESTING COVID TEST/SYMPTOMATIC [...] section and content) DATE CREATED AUTHOR 05/17/2020 [facility] DATE CREATED AUTHOR AUTHOR'S ORGANIZ ATION 08/01/2024 [facility] Goals (unrecognized section and content) Goals may [...] Admit Provider, Other Provider Act manpreet Dr. rBaxton Salas , DO Attending Provider Active Team [...] Inactive Member Role Status Dates Dr. Lucio Ayuob MD Primary Care Provider, Referring Provider Active [...] BE BASED ON THE PRIMARY CLINICAL RECORDS. [facility] [employer] [facility]. provides no warranty or guarantee of the accuracy or completeness of information in this document.
[2024-09-23 03:30] LABS: Magnesium 2.2 mg/dL (1.5-2.2)
[2024-09-23] MEDS: 0.9% Normal Saline (1000mL) 1,000 ML 70 ML IV (04:31)
[2024-09-23] MEDS: 0.9% Saline Lock 10 ML Syringe IV (04:31)
--- NOTE | 2024-09-23 07:55 | PN.HOSP_ITS ---
Hospitalist Note 79-year-old female was admitted with fall in bathroom with complaint of left hip pain with subsequent inability to ambulate. Denies head trauma or LOC after fall. She uses walker, lives at [facility]. History of Alzheimer's disease. In the ER, x-ray shows evidence of acute left intertrochanteric femoral neck fracture and patient planned for ORIF on Tuesday She has history of right hip fracture status post ORIF by orthopedic surgeon Dr. Salas Denies dysuria Seen and examined General: Alert, Oriented x3, Cooperative HEENT: Atraumatic, PERRLA, EOMI, Normocephalic. Oral: No Gingival or Mucosal Lesions/ Ulcerations Neck: Supple, No JVD, Negative Carotid Bruits Chest wall/Lungs: Air entry diminished in bilateral lung bases. No crepit ation/rhonchi Cardiovascular: Regular rate and rhythm, Normal S1,S2, No M/G/R Abdomen: Bowel Sounds Present, Soft, Non Tender, Non-Distended : No dysuria. No renal angle tenderness. No suprapubic tenderness. Extremities: No edema, Capillary Refill Less than 3 Seconds Skin: No rashes, No breakdown Musculoskeletal: Left hip externally rotated, flexed abducted. Tenderness presented to the left femoral triangle. Status post right ORIF Neurological: Cranial nerves II-XII grossly intact, DTR 2+/4. No acute focal neurological deficit. Psych/Mental Status: Normal Affect, Appropriate. Plan left total hip on Tuesday
--- NOTE | 2024-09-23 08:24 | RAD_ITS ---
PROCEDURE: FEMUR MIN 2 VIEWS 09/23/2024 REASON FOR EXAM: SURGERY TECHNIQUE: FEMUR MIN 2 VIEWS COMPARISON: Left hip, 09/23/2024 at 1:26 a.m. FINDINGS: Four views of the left femur demonstrate an intertrochanteric fracture of the left femur. The remainder of the left femur is intact. The knee joint appears unremarkable. RAD/Femur Min 2 Views IMPRESSION: Intertrochanteric fracture of the left femur. Reading Location: [id number]
[2024-09-23] MEDS: Heparin Injection (Vial) 5,000 UNIT/ML VIAL 5000 UNIT SC ×2 (10:15→21:15)
[2024-09-23 14:10] LABS: Mucous, Urine 0 SEEN /hpf (<or=2+); Red Blood Cells-Urine 0 SEEN /hpf (0-5)
[2024-09-23 14:11] LABS: Color, Urine Yellow (Yellow); Glucose, Dipstick Normal (Normal); Ketone-Dipstick Negative (Negative); Leukocyte Esterase-Dipstick 500 /ul (Negative); Nitrite-Dipstick Positive (Negative); Occult Blood-Urine 50 /ul (Negative); Protein-Dipstick 30 mg/dl (Negative); Specific Gravity, Urine 1.025 (1.002-1.030); Urine Bilirubin Dipstick Negative (Negative)
[2024-09-23 14:21] LABS: Squamous Epithelial Cells - UA 10-25 SEEN /hpf (5-10)
--- NOTE | 2024-09-23 15:11 | PCM.CONS.GEN ---
Assessment & Plan Assessment/Plan (1) Intertrochanteric fracture of left hip: QUALIFIERS: Encounter type: initial encounter Fracture type: closed Fracture alignment: displaced Qualified Code(s): S72.142A - Displaced intertrochanteric fracture of left femur, initial encounter for closed fracture PLAN: Plan Comminuted displaced left hip intertrochanteric femur fracture with shortening In Antunez's traction 7 pounds Thorough discussion was had with with the patient and her daughter in regards to surgical treatment of her left femur Response alternatives of cephalomedullary fixation were discussed. We discussed that due to the comminution there is a possibility she may need to have restricted weightbearing postoperatively, I will determine this intraoperatively tomorrow. She was recently living in an assisted living facility and she will most likely require long-term facility prior to returning back to this. Plan for surgery 09/24/2024 left femur cephalomedullary fixation consent signed placed in the chart Antibiotics and TXA on-call to the OR. HPI Consult Data Date of Consult: 09/23/24 HPI Narrative HPI Narrative: NICOLE HUGGINS, is a 79 F who presents after ground-level fall at home in the bathroom onto her left side immediately had pain and inability ambulate but to the emergency room x-rays demonstrated a comminuted displaced and her trochanteric left femur fracture. Patient denies any other complaints or concerns at this time she is seen with her daughter at bedside the daughter states that she still signs her own medical consents and makes her medical decisions although recently diagnosed with frontal lobe dementia. [facility] Medical History Frontal dementia Contusion of right knee Strain of right knee Hemorrhoids Family history of breast cancer Thyroid disease Breast mass, right Abnormal mammogram of right breast Home Medications ?Medication ?Instructions ?Recorded ?Last Taken ?Type levothyroxine 75 mcg tablet 75 mcg PO DAILY THYROID 03/11/20 Unknown History pantoprazole 40 mg tablet,delayed 40 mg PO DAILY GERD 09/23/24 Unknown History release Allergy/AdvReac Type Severity Reaction Status Date / Time No Known Allergies Allergy Verified 08/01/24 09:56 Family History Mother Breast cancer Sister Breast cancer Sister Lymphoma Surgical History History of right breast biopsy (~03/2020) History of partial hysterectomy Social History household members: none Smoking Status: Never smoker second hand exposure: No alcohol intake: never substance use type: does not use Physical Exam Const alert and no apparent distress General Appearance: cooperative and comfortable Extremity Extremity Narrative: Left lower extremity is slightly externally rotated and shortened she is in Antunez's traction. She does admit to chronic unchanged decree sensation light touch in her foot she had this before. She is able to wiggle her toes and move her ankle her compartments are soft there is no open wounds around the hip. Lab / Micro Data 09/23/24 01:20 09/23/24 01:20 Labs: Laboratory Results - last 24 hr 09/23/24 01:20: WBC 9.9, RBC 3.85 L, Hgb 11.3 L, Hct 34.6 L, MCV 89.9, MCH 29.4, MCHC 32.7, RDW Std Deviation 44.6 H, RDW Coeff of Rosita 13.5, Plt Count 265, MPV 9.7, Sodium 139, Potassium 3.7, Chloride 109 H, Carbon Dioxide 20.2 L, Anion Gap 10, BUN 14, Creatinine 0.73, Estim Creat Clear Calc 58.39, Est GFR (MDRD) Non-Af 84, BUN/Creatinine Ratio 18.5, Glucose 136 H, Calcium 8.7, Magnesium 2.2, TSH 3.060 09/23/24 05:41: Blood Type AB POSITIVE, Antibody Screen NEGATIVE 09/23/24 14:00: Urine Color Yellow, Urine Clarity Sl. Cloudy, Urine pH 6.0, Ur Specific [place] 1.025, Urine Protein 30 H, Urine Glucose (UA) Normal, Urine Ketones Negative, Urine Occult Blood 50 H, Urine Nitrite Positive H, Urine Bilirubin Negative, Urine Urobilinogen Normal, Ur Leukocyte Esterase 500 H, Urine RBC 0 SEEN, Urine WBC >100 SEEN, Ur Squamous Epith Cells 10-25 SEEN, Urine Bacteria 2+, Urine Mucus 0 SEEN Imaging Radiology Impression Chest X-Ray 09/23/24 01:02 IMPRESSION: Under aerated lung bases. Possible small right effusion. Reading Location: [facility] Hip/Pelvis X-Ray 09/23/24 01:26 IMPRESSION: Acute left intertrochanteric femoral neck fracture. Reading Location: [facility] Femur X-Ray 09/23/24 08:24 IMPRESSION: Intertrochanteric fracture of the left femur. Reading Location: [id number]
[2024-09-24] VITALS (15 sets, daily range): BP systolic 95–165; BP diastolic 52–75; PULSE 75–106; RESP 12–98; TEMP 36.3–37; O2SAT 2–99; BMI 25.9
[2024-09-24] MEDS: HYDROmorphone 0.5 MG/0.5 ML SYRINGE IV ×3 (00:58→10:54)
[2024-09-24 04:33] LABS: Hematocrit 30.4 % (37-47); Hemoglobin 9.9 g/dL (12.0-15.0); Immature Granulocytes Count 0.020 X10^3/uL (0.0-0.0); Mean Corp Hgb Conc 32.6 g/dL (32-36); Mean Corpuscular Volume 89.9 fL (81-99); Mean Platelet Vol. 9.7 fl (6.2-12.0); NRBC Flagged by Analyzer 0 % (0-5); Platelet Count 207 K/mm3 (150-450); RBC Distribution Width CV 13.7 % (11.6-14.6); RBC Distribution Width SD 45.1 fl (35.1-43.9); Red Blood Count 3.38 M/mm3 (4.2-5.4); White Blood Count 6.6 K/mm3 (4.4-11.0)
[2024-09-24 04:42] LABS: Partial Thromboplast Time 36.0 Seconds (24.1-36.2)
[2024-09-24 05:36] LABS: AST(SGOT) 25 U/L (<=31); Alanine Aminotransfer ALT/SGPT 21 U/L (<=34); Albumin, Serum 3.6 g/dL (3.4-4.8); Alkaline Phosphatase 115 U/L (35-104); Anion Gap 9 (5-15); BUN 12 mg/dL (4-19); BUN/Creat Ratio 15.9 RATIO (10-20); Calcium,Total 8.9 mg/dL (7.6-11.0); Carbon Dioxide 21.2 mmol/L (21.0-32.0); Chloride 106 mmol/L (98-108); Estimated Creatinine Clearance 58.17 ml/min (50-250); Globulin 2.2 g/dL (2.2-4.2); Glucose 111 mg/dL (70-99); Potassium 3.7 mmol/L (3.3-5.1)
--- NOTE | 2024-09-24 10:51 | CASEMGMT ---
SW Assessment: Face to Face with pt for initial transition planning/care coordination assessment. SW introduced self and role at [facility], pt voices understanding and consents to assessment. Care providers, pharmacy, and demographics verified/updated. Admitting Dx: hip fracture PCP: Dr Ayoub Specialists: none Preferred Pharmacy: [facility] Pres[facility] Benefit: yes LNOK: Pablo, son, who is HCPOA. Sister, Gabriela Living Arrangements: Pt lives at [facility]. Pt reports that she has only lived there for 2 days, previously living at home. Pt reports that she is independent with bathing, self care, laundry, and cooking. Pt reports that she receives assistance with medication management and some meals. Transportation: pt son assists with transportation DME: Walker. Walk-in shower with shower chair, grab bars, call cords, comfort height commode HHC/SNF: Prior gip surgery 3 years ago; TCU previously Pt open to SNF if appropriate at discharge. SW to follow. Advised pt to ask SW if any further questions/concerns/needs arise, voices understanding. OLAF Shanks
[2024-09-24] MEDS: 0.9% Saline Lock 10 ML Syringe IV (10:54)
--- NOTE | 2024-09-24 12:31 | CASEMGMT ---
Addendum entered by Radha Cooper 09/24/24 13:52: [facility] has accepted. SW updated. Radha Cooper DC Planning Asst. Original Note: Discharge Planning Referral sent to [facility]. Radha Cooper DC Planning Asst.
--- NOTE | 2024-09-24 13:48 | PRE.ANES_ITS ---
ASA Classification* ASA Classification ASA Classification: 2 Assessment & Plan Anesthesia* Anesthesia Assessment Anesthesia Assessment: Discussed sedation and/or anesthesia options, risks, benefits, and alternatives with patient/parents/legal guardian/POA. Questions invited. The patient/parents/legal guardian/POA seems to understand and agrees to proceed with anesthesia plan. Reviewed the physical assessment, medical history, allergy history and patient home medications list prior to surgery/procedure/anesthetic and documented any changes. Performed airway and anesthesia risk assessments. Anesthesia Type Anesthesia Type: General Anesthesia Focused Assessment* Temperature: 97.8 F Pulse Rate: 89 Blood Pressure: 150/74 Respiratory Rate: 18 Pulse Ox: 98 Airway Assessment Mouth opens: >3 cm Mallampati Score: II Labs Anesthesia Preop lab: CBC WBC 6.6 K/mm3 (4.4-11.0) 09/24/24 04:05 09/24/24 RBC 3.38 M/mm3 (4.2-5.4) L 09/24/24 04:05 09/24/24 Hgb 9.9 g/dL (12.0-15.0) L 09/24/24 04:05 09/24/24 Hct 30.4 % (37-47) L 09/24/24 04:05 09/24/24 Plt Count 207 K/mm3 (150-450) 09/24/24 04:05 09/24/24 CHEMISTRY Potassium 3.7 mmol/L (3.3-5.1) 09/24/24 04:05 09/24/24 Sodium 136 mmol/L (133-145) 09/24/24 04:05 09/24/24 Magnesium 2.2 mg/dL (1.5-2.2) 09/23/24 01:20 09/23/24 BUN 12 mg/dL (4-19) 09/24/24 04:05 09/24/24 Creatinine 0.77 mg/dL (0.70-1.20) 09/24/24 04:05 09/24/24 Glucose 111 mg/dL (70-99) H 09/24/24 04:05 09/24/24 TSH 4.120 uIU/mL (0.300-4.200) 09/24/24 04:05 10/12 COAG PT 12.5 SECONDS (11.7-14.9) 01/29/22 07:45 Pre-Assessment Diagnosis/Proposed Procedure Planned Operative Procedure(s): Left hip nail placement. 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 When Was Last Pacemaker Check QUESTION #4 FULL TEXT: You/Your Family Experience fever (hyperthermia) with Anesthesia Last Oral Intake Last Oral intake: Last Oral Intake NPO since Meds taken in AM with sips of water? Meds patient instructed to take am of surgery PONV PONV - railway head tender: PONV - railway head tender Female HX of Motion Sickness HX of N/V After Surgery Non-Smoker Duration of Surgery greater than 60 minutes Number of Risk Factors PONV Score Height & Weight Height & Weight: Anesthesia: Height & Weight Height 5 ft 6 in 09/23/24 03:57 Weight: 73.3 kg 09/24/24 06:00 Body Mass Index (BMI) 25.9 09/24/24 06:00 Respiratory Assessment Respiratory Assessment - railway head tender: Respiratory Tract Infection Hx - railway head tender Hx Respiratory Tract Infection No 09/23/24 20:18 STOP Sleep Apnea STOP Sleep Apnea - railway head tender: STOP Sleep Apnea - railway head tender Hx Hypertension No 09/23/24 03:57 Hx Sleep Apnea No 09/23/24 03:57 CPAP BIPAP Do you snore loudly (louder No 09/23/24 03:57 than talking or can be heard Do you often feel tired/ No 09/23/24 03:57 fatigued/ sleepy during daytime? Has anyone observed you stop No 09/23/24 03:57 breathing during sleep? STOP Results Negative 09/23/24 03:57 QUESTION #5 FULL TEXT : Do you snore loudly (louder than talking or can be heard through closed doors)? 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 Specify any problems Hx of Preganancy in last 3 N/A 09/23/24 03:57 Months Nurse Filling Out Transfusion LSMITH 09/23/24 03:57 & Questions: Date: 09/23/24 09/23/24 03:57 Time: 04:03 09/23/24 03:57 Patient unable to answer at this time (ie. confused, unrespo /Reproduction History /Reproductive History - railway head tender: /Reproductive Hx- railway head tender Hx Now No 09/23/24 20:18 Gestational Age (in weeks): EDC: Hx Hx Para Hx Section SAB No 09/23/24 20:18 Active Medications Active Medications: Current Medications Generic Name Dose Route Start Last Admin Trade Name Freq PRN Reason Stop Dose Admin Acetaminophen 650 mg 09/23/24 03:57 09/24/24 02:18 Acetaminophen 325 Mg Tablet PO 650 mg Q6H PRN PRN Administration Pain 1-5/10 or Fever Al Hydroxide/Mg Hydroxide 30 ml 09/23/24 03:57 Mag Hydrox/Al Hydrox/Simeth 30 Ml Udc PO Q6H PRN PRN Gastric Burning Heparin Sodium (Porcine) 5,000 unit 09/23/24 10:00 09/24/24 07:30 Heparin Injection (Vial) 5,000 Unit/Ml Vial SC Not Given BID GEOVANNA Hydromorphone HCl 0.5 mg 09/23/24 03:57 09/24/24 10:54 Hydromorphone 0.5 Mg/0.5 Ml Syringe IV 0.5 mg Q4H PRN PRN Administration Pain Score 6-10 Lactated Ringer's 1,000 mls @ 15 mls/hr 09/24/24 13:45 IV .Q48H GEOVANNA Levothyroxine Sodium 75 mcg 09/23/24 06:00 09/24/24 06:20 Levothyroxine 75 Mcg Tablet PO 75 mcg DAILY@0600 GEOVANNA Administration Magnesium Hydroxide 30 ml 09/23/24 03:57 Magnesium Hydroxide 30 Ml Udc PO DAILY PRN PRN Constipation Melatonin 3 mg 09/23/24 03:57 Melatonin 3 Mg Tablet PO QHS PRN PRN INSOMNIA Ondansetron HCl 4 mg 09/23/24 03:57 Ondansetron 4 Mg/2 Ml Vial IV Q8H PRN PRN NAUSEA/VOMITING Oxycodone HCl 2.5 - 5 mg 09/23/24 08:26 09/24/24 09:23 Oxycodone 5 Mg Tablet PO 5 mg Q4H PRN PRN Administration Pain Score 4-10 Pantoprazole Sodium 40 mg 09/23/24 10:00 09/24/24 07:30 Pantoprazole Sodium 40 Mg Tablet PO Not Given DAILY GEOVANNA Sodium Chloride 10 - 40 ml 09/23/24 03:59 09/24/24 10:54 0.9% Saline Lock 10 Ml Syringe IV 10 ml UD PRN Administration SALINE FLUSH PFSH Medical History Frontal dementia Contusion of right knee Strain of right knee Hemorrhoids Family history of breast cancer Thyroid disease Breast mass, right Abnormal mammogram of right breast Home Medications ?Medication ?Instructions ?Recorded ?Last Taken ?Type levothyroxine 75 mcg tablet 75 mcg PO DAILY THYROID Unknown History pantoprazole 40 mg tablet,delayed 40 mg PO DAILY GERD 09/23/24 Unknown History release Allergy/AdvReac Type Severity Reaction Status Date / Time No Known Allergies Allergy Verified 08/01/24 09:56 Family History Mother Breast cancer Sister Breast cancer Sister Lymphoma Surgical History History of right breast biopsy (~03/2020) History of partial hysterectomy Social History household members: none Smoking Status: Never smoker second hand exposure: No alcohol intake: never substance use type: does not use Review of Systems (Anesthesia) ROS Narrative System reviewed and no additional complaints, except as documented.
[2024-09-24] MEDS: Lactated Ringers 1,000 ML 15 ML IV (13:50)
[2024-09-24] MEDS: Cefazolin 2 GM in 0.9% Normal Saline (100mL Bag) 100 ML IV ×2 (14:50→19:58)
--- NOTE | 2024-09-24 15:00 | RAD_ITS ---
PROCEDURE: HIP MIN 2 VIEWS (PORTABLE); O.R. FLUORO FOR C-ARM 09/24/2024 REASON FOR EXAM: TROCHANTERIC FIXATION; HIP FIXATION TECHNIQUE: HIP MIN 2 VIEWS (PORTABLE); O.R. FLUORO FOR C-ARM Fluoroscopy time: 95.9 seconds. Dose: 14.53 mGy. COMPARISON: Left hip and pelvis of 09/23/2024 RAD/Hip Min 2 Views (Portable) IMPRESSION: Intraoperative fluoroscopy was performed for left femoral fracture fixation inc luding placement of an intramedullary nail with proximal and distal interlocking screws. 9 fluoroscopic images were also obtai nash. Reading Location: [address]
--- NOTE | 2024-09-24 15:00 | RAD_ITS ---
PROCEDURE: HIP MIN 2 VIEWS (PORTABLE); O.R. FLUORO FOR C-ARM 09/24/2024 REASON FOR EXAM: TROCHANTERIC FIXATION; HIP FIXATION TECHNIQUE: HIP MIN 2 VIEWS (PORTABLE); O.R. FLUORO FOR C-ARM Fluoroscopy time: 95.9 seconds. Dose: 14.53 mGy. COMPARISON: Left hip and pelvis of 09/23/2024 RAD/O.R. Fluoro for C-Arm IMPRESSION: Intraoperative fluoroscopy was performed for left femoral fracture fixation inc luding placement of an intramedullary nail with proximal and distal interlocking screws. 9 fluoroscopic images were also obtai nash. Reading Location: [address]
[2024-09-24] MEDS: TRANEXAMIC ACID 1,000 MG in 0.9% Normal Saline (100mL Bag) 100 ML 440 MG IV (15:20)
[2024-09-24] MEDS: Bupiv/Epi 0.25% 30 ML Vial (16:16)
--- NOTE | 2024-09-24 16:34 | PCM.POST.ANE ---
Anesthesia: Postop Eval I Current Vital Signs Temperature: 98.4 F Pulse Rate: 89 Blood Pressure: 141/67 Respiratory Rate: 12 Pulse Ox: 95 Oxygen Delivery Method: Room Air Assessment Airway patent: Yes Spontaneous unlabored respirations: Yes Mental status: Asleep nausea: No Vomiting: No Anesthesia Complication: No Fluid Hydration Crystalloid volume administer (ml): 700 Total IV fluid infused: 700 Progress Note Anesthesia document: Postop Eval 1 completed: Yes
--- NOTE | 2024-09-24 16:37 | PCM.OPRPT ---
Operative Report (Standard) Operative Information Date of Procedure: 09/24/24 Pre-Operative Diagnosis: Left hip intertrochanteric femur fracture with comminution Post-Operative Diagnosis: Same Surgery/Procedure Performed: Cephalomedullary fixation left femur swimming pool cleaner: No Type of Anesthesia: General RN Documented Start/Stop Times: Operation Date: 09/24/24 14:30 Case Time Into Pre-Op 09/24/24 13:30 Out of Pre-Op 09/24/24 14:32 Anesthesia Start 09/24/24 14:37 Into Room 09/24/24 14:37 Procedure Start 09/24/24 15:09 Procedure End 09/24/24 16:22 Anesthesia End 09/24/24 16:28 Out of Room 09/24/24 16:28 Procedure Start Time: 15:09 Procedure Stop Time: 16:22 Select all DRAINS/GRAFTS/IMPLANTS that apply: None Estimated Blood Loss: 25 Specimen collected: No Description of surgery: Preoperative diagnosis: [Left] hip [intertrochanteric femur fracture with reverse obliquity fracture pattern] Postoperative diagnosis: Same Procedure: Cephalo-medullary fixation [left] hip Implants: Synthes long nail [id number], [ 90] mm helical blade, 2 distal locking screws Anesthesia: General EBL: 25 Complications: None Condition: Stable to PACU Indication for procedure: 79-year-old female patient with ground-level fall sustaining injury to the left hip. fracture demonstrated [intertrochanteric femur fracture with reverse obliquity pattern], risk benefits and alternatives were reviewed including risk of bleeding infection nerve, artery, bone, tissue damage, blood clot, RSD need for further surgery and continued pain. Procedure: Patient met in the preoperative holding area once again the operative extremity was identified by both patient and physician and was marked. Patient was met by anesthesia and IV was started she was brought back to the to the operating room anesthesia was started. She was then positioned on the fracture table all bony prominences were well-padded. She was then positioned with adduction internal rotation and traction and fluoroscopy was brought in to ensure that an adequate reduction could be performed. Patient was then prepped and draped in usual sterile fashion and timeout was called to ensure the proper patient procedure and extremity were being contemplated. Fluoroscopy was used to jolly the tip of the greater trochanter and a 3 fingerbreadth incision was made 2 finger breaths proximal to the tip of the greater trochanter. Was carried carried down through the skin and subcutaneous tissue as well as the gluteal fascia. A guide pin was then inserted through the tip of the greater trochanter directed towards the level of lesser trochanter this was checked in both AP and lateral projections. An opening reamer was performed. A guide pin was bent and placed down the femoral canal to the level of the superior patella then measured this and placed the corresponding length nail after flexible reamers were used to achieve cortical chatter and achieving 1.5 mm greater than the nail was chosen . following this was the insertion of the nail the appropriate height jig was used and a triple trocar sleeve was advanced to the skin and a stab incision was made at the trocar was inserted to the level of the bone and a guidepin was placed into the femoral neck and head checked on both AP and lateral projections. This was then measured and appropriately sized helical blade was inserted the nail was locked proximally to allow dynamic compression, the fracture was compressed and a locking screw was placed distally using perfect [place] technique. This was then drilled and measured under fluoroscopy and the appropriate size screw was inserted. Final AP and lateral projections were saved to the PACS system of the entire construct. the wounds were thoroughly irrigated the fascia was closed with #1 [id number] Vicryls followed by 2-0 Vicryl in the subcutaneous tissues followed by cedrick in the skin. 0.5% Marcaine with epinephrine was injected into the subcutaneous tissues dressing was applied form of Xeroform 4 x 4 ABD and Ioban tape. Patient tolerated procedure well there is no intraoperative complications she was brought back to the PACU in stable condition. Surgical Findings: Comminuted intertrochanteric femur fracture Complications Complications: No
--- NOTE | 2024-09-24 16:42 | CHAPLAIN ---
Type of Pastoral Visit ___ Initial Visit ___ Follow-up Visit ___ On-call Visit ___ General Patient Visit ___ Spiritual Assessment ___ Family Conference ___ Bereavement ___ Rapid Response ___ Code Blue ___ Other (describe below) Pastoral Care Referral From ___ Patient ___ Family ___ Nurse ___ Physician ___ Head Of Business Development ___ Food Technician ___ Other (describe below) Sacrament/Intervention ___ Active listening ___ Anointing ___ Mosque ___ Bereavement ___ Communion ___ Jaz exploration ___ ___ Life review ___ Prayer ___ Reconciliation ___ Sacrament of Sick ___ Supportive presence ___ Wedding ___ Other (describe below) Pastoral Comments patient and bed are not in the room; left a calling card
--- NOTE | 2024-09-24 17:03 | PN.HOSP_ITS ---
Reason for Visit Reason for Visit: Diagnoses Hypothyroidism, unspecified (09/23/24) Mild cognitive impairment of uncertain or unknown etiology (09/23/24) Fracture of unspecified part of neck of left femur, initial encounter for closed fracture (09/23/24) Displaced intertrochanteric fracture of left femur, initial encounter for closed fracture (09/23/24) Unspecified fall, initial encounter (09/23/24) Personal history of (healed) traumatic fracture (09/23/24) Subjective Subjective Patient was seen and examined today, she is due to go to surgery today for repair of a hip fracture, she does not have any questions for this examiner. Objective Data Objective Data Vital Signs: Vital Signs Temp Pulse Resp BP Pulse Ox O2 Del Method O2 Flow Rate 98.4 F 103 H 16 95/72 96 Nasal Cannula 2 09/24/24 16:35 09/24/24 17:00 09/24/24 17:00 09/24/24 17:00 09/24/24 17:00 09/24/24 17:00 09/24/24 17:00 Oxygen Flow Rate (L/min) 2 Oxygen Delivery Method Nasal Cannula Weight: 73.3 kg Body Mass Index (BMI) 25.9 Intake & Output: Intake and Output for Last 24 Hours 09/22/24 09/23/24 09/24/24 23:59 23:59 23:59 Intake Total 2250 / 2250 Output Total 400 / 600 600 / 600 Balance 1850 / 1650 -600 / -600 Lab / Micro Data 09/24/24 04:05 09/24/24 04:05 Labs: Laboratory Results - last 24 hr 09/24/24 04:05: WBC 6.6, RBC 3.38 L, Hgb 9.9 L, Hct 30.4 L, MCV 89.9, MCH 29.3, MCHC 32.6, RDW Std Deviation 45.1 H, RDW Coeff of Rosita 13.7, Plt Count 207, MPV 9.7, Immature Gran % (Auto) 0.300, Neut % (Auto) 68.7, Lymph % (Auto) 20.8, Caroline % (Auto) 8.2, Eos % (Auto) 1.7, Baso % (Auto) 0.3, Absolute Neuts (auto) 4.6, Absolute Lymphs (auto) 1.38, Nucleated RBC % 0, APTT 36.0, Sodium 136, Potassium 3.7, Chloride 106, Carbon Dioxide 21.2, Anion Gap 9, BUN 12, Creatinine 0.77, Estim Creat Clear Calc 58.17, Est GFR (MDRD) Non-Af 78, BUN/Creatinine Ratio 15.9, Glucose 111 H, Calcium 8.9, Total Bilirubin 0.70, AST 25, ALT 21, Alkaline Phosphatase 115 H, Total Protein 5.9, Albumin 3.6, Globulin 2.2, Albumin/Globulin Ratio 1.6, TSH 4.120 Radiography Diagnostic Testing: Radiology Impression C-Arm Fluoroscopy 09/24/24 15:00 IMPRESSION: Intraoperative fluoroscopy was performed for left femoral fracture fixation including placement of an intramedullary nail with proximal and distal interlocking screws. 9 fluoroscopic images were also obtained. Reading Location: [address] Hip X-Ray 09/24/24 15:00 IMPRESSION: Intraoperative fluoroscopy was performed for left femoral fracture fixation including placement of an intramedullary nail with proximal and distal interlocking screws. 9 fluoroscopic images were also obtained. Reading Location: [address] Physical Exam Const alert, oriented x3, no apparent distress and average body habitus General Appearance: cooperative, well kempt and well developed Orientation / Consciousness: awake, oriented to person, oriented to place and oriented to time HEENT normocephalic, head/scalp atraumatic and moist oral mucous membranes Eyes PERRL, EOMs intact bilaterally and conjunctivae normal Neck supple, no JVD, thyroid normal and no carotid bruits General: trachea midline Resp normal respiratory effort, no retractions, no use of accessory muscles and clear to auscultation bilaterally Auscultation: Negative for rales, rhonchi or wheezes Cardio regular rate, regular rhythm, S1 normal heart sound, S2 normal heart sound, no murmurs, no rub and no gallops GI normal to inspection, nondistended, normoactive bowel sounds, soft to palpation, non-tender and non-distended Extremity no clubbing, cyanosis or edema Skin no rashes or lesions noted General Skin Exam: no breakdown Neuro oriented x3, CN's II-XII intact bilaterally, no focal motor deficits and no sensory deficits noted Sensorium / Orientation: awake and alert Speech: speech normal Psych Psych Narrative: Patient exhibits some mild cognitive impairment Assessment & Plan Assessment/Plan (1) Intertrochanteric fracture of left hip: QUALIFIERS: Encounter type: initial encounter Fracture type: c losed Fracture alignment: displaced Qualified Code(s): S72.142A - Displaced intertrochanteric fracture of left femur, initial encounter for closed fracture PLAN: Plan 1. Intertrochanteric fracture of the left hip-patient is due to undergo surgery for repair today, PT and OT will see the patient in follow-up, she may need temporary placement in a long-term facility for rehab services #2 Alzheimer's disease-patient has a history of mild cognitive impairment, complicates care, management, recovery, and prognosis #3 hypothyroidism-patient is on Synthroid #4 GERD-patient is on a PPI Total clinical time spent by myself addressing the patient's medical issues, reviewing all of her data, and collaborating with patient's care team: 35 minutes Charges/Coding Visit Charges Inpatient E&M: 76247 Subs Hosp L2
[2024-09-24] MEDS: Lactated Ringers 1,000 ML 125 ML IV (17:51)
--- NOTE | 2024-09-24 19:51 | POSTOPAN2_ITS ---
Anesthesia Postop Eval I Sum Postop Eval Completion status Anesthesia document: Postop Eval 1 completed: Yes Anesthesia Postop Eval I Summary Anesthesia Postop Eval I Summary: Anesthesia Postop Eval I: Assessment Summary Airway patent Yes 09/24/24 16:35 [email or web address] Spontaneous unlabored Yes 09/24/24 16:35 [email or web address].APAT respirations Mental status Asleep 09/24/24 16:35 [email or web address].[email or web address] nausea No 09/24/24 16:35 [email or web address].APAT Vomiting No 09/24/24 16:35 [email or web address].[email or web address] Anesthesia Postop Eval I: Fluid Summary Crystalloid volume administer 700 09/24/24 16:35 HYDROSTATIC [email or web address].APAT (ml) Colloids volume administered ( ml) Blood Product volume administered (ml) Total IV fluid infused 700 09/24/24 16:35 [email or web address].[email or web address] Anesthesia Postop Eval I: Summary Notes Anesthesia Complication No 09/24/24 16:35 [email or web address].[email or web address] Anesthesia Complication Comment: Post-operative progress note Anesthesia: Postop Eval II Evaluation Mental status: Awake Pain Level: 2 nausea: No Vomiting: No
--- NOTE | 2024-09-24 19:51 | PCM.POSTANE2 ---
Anesthesia Postop Eval I Sum Postop Eval Completion status Anesthesia document: Postop Eval 1 completed: Yes Anesthesia Postop Eval I Summary Anesthesia Postop Eval I Summary: Anesthesia Postop Eval I: Assessment Summary Airway patent Yes 09/24/24 16:35 BENEFITS [email or web address].[email or web address] Spontaneous unlabored Yes 09/24/24 16:35 BENEFITS ASSISTANT.APAT respirations Mental status Asleep 09/24/24 16:35 BENEFITS ASSISTANT.APAT nausea No 09/24/24 16:35 BENEFITS ASSISTANT.APAT Vomiting No 09/24/24 16:35 BENEFITS ASSISTANT.APAT Anesthesia Postop Eval I: Fluid Summary Crystalloid volume administer 700 09/24/24 16:35 BENEFITS ASSISTANT.APAT (ml) Colloids volume administered ( ml) Blood Product volume administered (ml) Total IV fluid infused 700 09/24/24 16:35 BENEFITS [email or web address].APAT Anesthesia Postop Eval I: Summary Notes Anesthesia Complication No 09/24/24 16:35 BENEFITS ASSISTANT.APAT Anesthesia Complication Comment: Post-operative progress note Anesthesia: Postop Eval II Evaluation Mental status: Awake Pain Level: 2 nausea: No Vomiting: No
[2024-09-25] MEDS: HYDROmorphone 0.5 MG/0.5 ML SYRINGE IV (02:24)
[2024-09-25] MEDS: Lactated Ringers 1,000 ML 125 ML IV (02:24)
[2024-09-25 02:28] VITALS: BP 144/69; PULSE 105; RESP 16; TEMP 36.4; O2SAT 96
[2024-09-25 03:49] VITALS: BMI 25.9
[2024-09-25] MEDS: Cefazolin 2 GM in 0.9% Normal Saline (100mL Bag) 100 ML IV ×2 (06:10→12:30)
[2024-09-25 06:12] VITALS: BP 123/97; PULSE 96; RESP 18; TEMP 37; O2SAT 95
--- NOTE | 2024-09-25 07:10 | PCM.PN.ORT ---
Subjective Subjective Seen and examined. Complain of left hip pain otherwise no complaints denies fever chills nausea vomiting shortness of breath or chest pain. Objective Data Objective Data Vital Signs: Vital Signs Temp Pulse Resp BP Pulse Ox O2 Del Method O2 Flow Rate 98.6 F 96 18 123/97 H 95 Room Air 2 09/25/24 06:12 09/25/24 06:12 09/25/24 06:12 09/25/24 06:12 09/25/24 06:12 09/25/24 06:12 09/24/24 17:00 Oxygen Flow Rate (L/min) 2 Oxygen Delivery Method Room Air Weight: 161 lb 9.581 oz Body Mass Index (BMI) 25.9 Intake & Output: Intake and Output for Last 24 Hours 09/23/24 09/24/24 09/25/24 23:59 23:59 23:59 Intake Total 2250 / 2250 1110 / 1110 1210 / 1210 Output Total 400 / 600 1100 / 1100 1000 / 1000 Balance 1850 / 1650 210 / 210 Lab / Micro Data 09/24/24 04:05 09/24/24 04:05 Radiography Diagnostic Testing: Radiology Impression C-Arm Fluoroscopy 09/24/24 15:00 IMPRESSION: Intraoperative fluoroscopy was performed for left femoral fracture fixation including placement of an intramedullary nail with proximal and distal interlocking screws. 9 fluoroscopic images were also obtained. Reading Location: [address] Hip X-Ray 09/24/24 15:00 IMPRESSION: Intraoperative fluoroscopy was performed for left femoral fracture fixation including placement of an intramedullary nail with proximal and distal interlocking screws. 9 fluoroscopic images were also obtained. Reading Location: [address] Physical Exam Const alert and no apparent distress General Appearance: cooperative Extremity Extremity Narrative: Left hip dressing clean dry intact there is ecchymosis in the lateral thigh which is to be expected her compartments are soft she is neurovascular intact EHL tibialis anterior gastrocsoleus intact sensation light touch palpable pedal pulse. Assessment & Plan Assessment/Plan (1) Intertrochanteric fracture of left hip: QUALIFIERS: Encounter type: initial encounter Fracture type: closed Fracture alignment: displaced Qualified Code(s): S72.142A - Displaced intertrochanteric fracture of left femur, initial encounter for closed fracture PLAN: Plan Postop day #1 left femur cephalomedullary fixation for comminuted intertrochanteric femur fracture PT OT weightbearing as tolerated Pain control oxycodone and Tylenol DVT prophylaxis SCDs ALFREDA hose Eliquis 2.5 mg twice daily for 3 weeks postop Dressing to be undisturbed for 5 days postop then on 09/29/2024 dressing should be removed and cleaned daily with either Betadine or antibacterial soap and warm water with dry dressing replaced daily for another 5 days and then left open to air. Patient should follow-up in the office in 2 weeks for wound check staple removal if however she is at a [facility] facility TCU rehab I am happy to see her there if notified.
[2024-09-25 07:11] VITALS: O2SAT 94
[2024-09-25 08:59] VITALS: BP 140/75; PULSE 106; RESP 18; TEMP 37; O2SAT 96
[2024-09-25] MEDS: APIXABAN 2.5 MG TABLET (WCH) PO ×2 (09:15→20:36)
[2024-09-25] MEDS: Cholecalciferol (VIT D3) 25 MCG TABLET (1,000 UNITS) PO (09:15)
--- NOTE | 2024-09-25 09:51 | CASEMGMT ---
Addendum entered by Heidi Dowling 09/25/24 14:37: VALERIE spoke with Liza who reports that she is agreeable to [facility]. Liza would like pt to be transported to SNF at d/c. DCA updated. OLAF Shanks Addendum entered by Heidi Dowling 09/25/24 10:24: VALERIE met with pt who shared that SW should call [id number] Liza to coordinate d/c planning if son is unavailable. VALERIE called and left a voicemail for [id number]. VALERIE remains available to follow. OLAF Shanks Original Note: Social Work- VALERIE called pt son and HCPOA to discuss discharge planning. Pt previously selected [facility] and was accepted. SW left voicemail requesting return call. VALERIE remains available to follow. OLAF Shanks
[2024-09-25] MEDS: 0.9% Saline Lock 10 ML Syringe IV (12:34)
[2024-09-25 14:10] VITALS: BP 152/58; PULSE 102; RESP 18; TEMP 36.6; O2SAT 95
--- NOTE | 2024-09-25 15:00 | CASEMGMT ---
Discharge Planning Updates sent to [facility] with request to submit for precert. Radha Cooper DC Planning Asst.
--- NOTE | 2024-09-25 16:07 | CHAPLAIN ---
Type of Pastoral Visit _x__ Initial Visit ___ Follow-up Visit ___ On-call Visit ___ General Patient Visit ___ Spiritual Assessment ___ Family Conference ___ Bereavement ___ Rapid Response ___ Code Blue ___ Other (describe below) Pastoral Care Referral From _x__ Patient ___ Family ___ Nurse ___ Physician ___ Signal Circuit Designer ___ Wheel Shop Supervisor ___ Other (describe below) Sacrament/Intervention _x__ Active listening ___ Anointing ___ Catholic ___ Bereavement ___ Communion ___ Jaz exploration ___ ___ Life review _x__ Prayer ___ Reconciliation ___ Sacrament of Sick _x__ Supportive presence ___ Wedding ___ Other (describe below) Pastoral Comments patient says that she is feeling better and is fine but would like to have prayer given for her recovery; pt welcomes presence, affirms that she is going to rest and has hope for better days
--- NOTE | 2024-09-25 16:24 | PCM.PN.HOSP ---
Reason for Visit Reason for Visit: Diagnoses Hypothyroidism, unspecified (09/23/24) Mild cognitive impairment of uncertain or unknown etiology (09/23/24) Fracture of unspecified part of neck of left femur, initial encounter for closed fracture (09/23/24) Displaced intertrochanteric fracture of left femur, initial encounter for closed fracture (09/23/24) Unspecified fall, initial encounter (09/23/24) Personal history of (healed) traumatic fracture (09/23/24) Subjective Subjective Patient was seen and examined today, we are currently awaiting approval for her to go to an [facility] facility for inpatient skilled services. Patient has no complaints for this examiner today. Objective Data Objective Data Vital Signs: Vital Signs Temp Pulse Resp BP Pulse Ox O2 Del Method O2 Flow Rate 98 F 102 H 18 152/58 H 95 Room Air 2 09/25/24 14:10 09/25/24 14:10 09/25/24 14:10 09/25/24 14:10 09/25/24 14:10 09/25/24 14:10 09/24/24 17:00 Oxygen Flow Rate (L/min) 2 Oxygen Delivery Method Room Air Weight: 73.3 kg Body Mass Index (BMI) 25.9 Intake & Output: Intake and Output for Last 24 Hours 09/23/24 09/24/24 09/25/24 23:59 23:59 23:59 Intake Total 2250 / 2250 1110 / 1110 2167.92 / 2167.92 Output Total 400 / 600 1100 / 1100 1000 / 1000 Balance 1850 / 1650 1167.92 / 1167.92 Lab / Micro Data 09/24/24 04:05 09/24/24 04:05 Micro: Microbiology 09/23/24 14:00 Urine Catheter - Catheter Urine Culture - Preliminary GNR lactose grapple operator Physical Exam Narrative alert, oriented x3, no apparent distress and average body habitus General Appearance: cooperative, well kempt and well developed Orientation / Consciousness: awake, oriented to person, oriented to place and oriented to time HEENT normocephalic, head/scalp atraumatic and moist oral mucous membranes Eyes PERRL, EOMs intact bilaterally and conjunctivae normal Neck supple, no JVD, thyroid normal and no carotid bruits General: trachea midline Resp normal respiratory effort, no retractions, no use of accessory muscles and clear to auscultation bilaterally Auscultation: Negative for rales, rhonchi or wheezes Cardio regular rate, regular rhythm, S1 normal heart sound, S2 normal heart sound, no murmurs, no rub and no gallops GI normal to inspection, nondistended, normoactive bowel sounds, soft to palpation, non-tender and non-distended Extremity no clubbing, cyanosis or edema Skin no rashes or lesions noted General Skin Exam: no breakdown Neuro oriented x3, CN's II-XII intact bilaterally, no focal motor deficits and no sensory deficits noted Sensorium / Orientation: awake and alert Speech: speech normal Psych Psych Narrative: Patient exhibits some mild cognitive impairment Assessment & Plan Assessment/Plan (1) Intertrochanteric fracture of left hip: QUALIFIERS: Encounter type: initial encounter Fracture type: closed Fracture alignment: displaced Qualified Code(s): S72.142A - Displaced intertrochanteric fracture of left femur, initial encounter for closed fracture PLAN: Plan 1. Intertrochanteric fracture of the left hip-postop day #1 ORIF left hip, PT and OT will see the patient in follow-up, she will need placement in half-way facility for inpatient skilled services #2 Alzheimer's disease-patient has a history of mild cognitive impairment, complicates care, management, recovery, and prognosis, patient currently resides in an assisted living facility, again she will likely need to go to a skilled facility for skilled services on discharge from the hospital #3 hypothyroidism-patient is on Synthroid #4 GERD-patient is on a PPI #5 acute blood loss anemia secondary to expected blood loss from left hip fracture-patient does not require transfusion at this time, H&H will be rechecked in the morning Total clinical time spent by myself addressing the patient's medical issues, reviewing all of her data, and collaborating with patient's care team: 35 minutes Charges/Coding Visit Charges Inpatient E&M: 88254 Subs Hosp L2
[2024-09-25 20:42] VITALS: BP 149/64; PULSE 74; RESP 18; TEMP 37.2; O2SAT 94
[2024-09-26 02:59] VITALS: BP 132/54; PULSE 83; RESP 16; TEMP 37.1; O2SAT 94
[2024-09-26 04:12] VITALS: BMI 26.1
[2024-09-26 05:42] LABS: Hematocrit 23.2 % (37-47); Hemoglobin 7.5 g/dL (12.0-15.0)
[2024-09-26] MEDS: Cholecalciferol (VIT D3) 25 MCG TABLET (1,000 UNITS) PO (08:18)
[2024-09-26] MEDS: APIXABAN 2.5 MG TABLET (WCH) PO (08:18)
[2024-09-26 09:00] VITALS: BP 159/74; PULSE 90; RESP 18; TEMP 36.7; O2SAT 96
[2024-09-26] MEDS: Sodium Ferric Gluconat/Sucrose 250 MG in 0.9% Normal Saline (250mL Bag) 250 ML 135 MG IV (10:43)
[2024-09-26] MEDS: 0.9% Saline Lock 10 ML Syringe IV (10:44)
--- NOTE | 2024-09-26 11:56 | CASEMGMT ---
Discharge Planning [facility] has obtained auth to admit. SW updated. Radha Cooper DC Planning Asst.
--- NOTE | 2024-09-26 12:14 | TREXTCAR_ITS ---
Diet Diet Order/Speech Therapy: INPATIENT Hospital Diet / Speech Therapy Order(s) 09/24/24 18:08 Diet: Regular - General Routine Orders/Code Status Routine Lab Work: CBC (daily times 3) Code Status: Full Code DC O2, CPAP, BIPAP needs Home O2 Discharge instructions: No Wound(s) left lateral hip: Wound Type: Surgical Incision left lateral knee: Wound Type: Surgical Incision Therapies Weight Bearing: Weight bearing as tolerated (with walker) Physical Therapy: Eval and Treat Occupational Therapy: Eval and Treat Problem/Diagnosis (1) Intertrochanteric fracture of left hip: Status: Acute Code(s): S72.142A - Displaced intertrochanteric fracture of left femur, initial encounter for closed fracture Plan 1. Intertrochanteric fracture of the left hip-postop day #2 ORIF left hip, PT and OT will see the patient in follow-up, she will need placement in assisted facility for inpatient skilled services #2 Alzheimer's disease-patient has a history of mild cognitive impairment, complicates care, management, recovery, and prognosis, patient currently resides in an assisted living facility, again she will likely need to go to a skilled facility for skilled services on discharge from the hospital #3 hypothyroidism-patient is on Synthroid #4 GERD-patient is on a PPI #5 acute blood loss anemia secondary to expected blood loss from left hip fracture-patient does not require transfusion, Hb is 7.5, IV iron given today Total clinical time spent by myself addressing the patient's medical issues, reviewing all of her data, and collaborating with patient's care team: 35 minutes Allergies/Procedures Done in Hospital Allergies No Known Allergies Allergy (Verified 08/01/24 09:56) Procedures: - (Cephalomedullary nail insertion left femur 09/24/24) Type of Care/Length of Stay Estimated LOS: Convalescent Care Less Than 30 days Type of Care Needed: Skilled Rehab Potential: Good Prognosis: Good Additional Orders/Day of Discharge H&P will serve as current which was dated: 09/23/24 Day of Discharge: 09/26/24 Discharge Plan Admission Admit Date/Time: 09/23/24 02:55 Primary Reason for Your Visit: left hip fracture Attending Provider: Gage Hays Primary Care Provider: Lucio Ayoub Chi Consulting Providers: Braxton Salas; Vic Marques; Jensen Cali Discharge Orders/Prescriptions Prescriptions: New acetaminophen 500 mg Tablet 1,000 mg PO Q8 Qty: 0 0RF levothyroxine 75 mcg Tablet 75 mcg PO DAILY@0600 Qty: 0 0RF calcium carbonate 200 mg calcium (500 mg) Tablet,Chewable 500 mg PO TIDCM Qty: 0 0RF oxycodone 5 mg Tablet 5 mg PO Q4H PRN PRN (Reason: Pain Score 4-10) 2 Days Qty: 8 0RF cholecalciferol (vitamin D3) 25 mcg (1,000 unit) Tablet 25 mcg PO DAILY Qty: 1 0RF Eliquis 5 mg Tablet 2.5 mg PO BID Qty: 0 0RF Rx Instructions: give for 30 days pantoprazole 40 mg Tablet,Delayed Release (Dr/Ec) 40 mg PO DAILY Qty: 0 0RF ferrous sulfate 325 mg (65 mg iron) tablet,delayed release (DR/EC) 325 mg PO BID Qty: 1 0RF Discontinued levothyroxine 75 mcg tablet 75 mcg PO DAILY pantoprazole 40 mg tablet,delayed release (DR/EC) 40 mg PO DAILY Referrals / Follow Up: Braxton Salas DO [Med Staff - Active Staff] - See Referral Note (in 2 weeks) Lucio Ayoub Chi, MD [Primary Care Provider] - Disposition Disposition (needs filled in before D/C Order can be placed): [facility] (1) Intertrochanteric fracture of left hip Qualifiers: Encounter type: initial encounter Fracture type: closed Fracture alignment: displaced Qualified Code(s): S72.142A - Displaced intertrochanteric fracture of left femur, initial encounter for closed fracture
[2024-09-26 12:27] VITALS: BP 148/78; PULSE 88; RESP 16; TEMP 36.7; O2SAT 96
--- NOTE | 2024-09-26 12:27 | PCM.DC.SUM ---
Providers Date of Admission: 09/23/24 Date of Discharge: 09/26/24 Primary Care Physician: Dr. Lucio Ayoub MD Consultations 09/23/24 06:42 Consult: Orthopedics Routine Consulting Provider: Braxton Salas Reason for Consult: Left intertrochanteric hip fracture after fall. EMERGENT Consult: No MD Notified: Yes Date Notified: 09/23/24 Time Notified: 06:42 Method of Notification: ED Physician Initiated Reason For Visit: ACUTE LEFT INTERTROCHANTERIC HIP FRACTURE Diagnosis Discharge Diagnosis (1) Intertrochanteric fracture of left hip: Status: Acute Code(s): S72.142A - Displaced intertrochanteric fracture of left femur, initial encounter for closed fracture Qualifiers: Encounter type: initial encounter Fracture alignment: displaced Fracture type: closed Qualified Code(s): S72.142A - Displaced intertrochanteric fracture of left femur, initial encounter for closed fracture Plan 1. Intertrochanteric fracture of the left hip-postop day #2 ORIF left hip, PT and OT will see the patient in follow-up, she will need [facility] in jail facility for inpatient skilled services #2 Alzheimer's disease-patient has a history of mild cognitive impairment, complicates care, management, recovery, and prognosis, patient currently resides in an assisted living facility, again she will likely need to go to a skilled facility for skilled services on discharge from the hospital #3 hypothyroidism-patient is on Synthroid #4 GERD-patient is on a PPI #5 acute blood loss anemia secondary to expected blood loss from left hip fracture-patient does not require transfusion, Hb is 7.5, IV iron given today Total clinical time spent by myself addressing the patient's medical issues, reviewing all of her data, and collaborating with patient's care team: 35 minutes Medications at Discharge Home Medications acetaminophen 500 mg tablet 1,000 mg (2 x 500 mg) PO Q8 #0 tabs 09/26/24 apixaban 5 mg tablet (Eliquis) 2.5 mg (1/2 x 5 mg) PO BID #0 tabs 09/26/24 calcium carbonate 500 mg (2.5 x 200 mg calcium (500 mg)) PO TIDCM #0 tabs 09/26/24 cholecalciferol (vitamin D3) 25 mcg (1,000 unit) tablet 25 mcg PO DAILY #1 TAB 09/26/24 ferrous sulfate 325 mg (65 mg iron) tablet,delayed release 325 mg PO BID #1 TAB 09/26/24 levothyroxine 75 mcg tablet 75 mcg PO DAILY@0600 #0 tabs 09/26/24 oxycodone 5 mg tablet 5 mg PO Q4H PRN PRN Pain Score 4-10 2 days #8 tabs 09/26/24 pantoprazole 40 mg tablet,delayed release 40 mg PO DAILY #0 tabs 09/26/24 Hospital Course Operations - (Cephalic medullary fixation of the left femur-09/24/2024) Procedures None Summary of Care Provided Minutes Spent on Discharge: 32 Hospital Course: 79-year-old white female was seen in the emergency room at [facility] complaining of left hip pain following a mechanical fall at home. Patient has a history of mild cognitive impairment/Alzheimer's disease, the fall occurred in her bathroom. Workup in the emergency room included a CBC that was remarkable for hemoglobin of 11.3, patient's chemistry profile was essentially unremarkable, an x-ray of the left hip showed an acute left intertrochanteric femoral neck fracture. Patient was admitted to [place] [address] and seen in consultation by orthopedic surgery, she was seen by PT and OT and underwent ORIF of the left hip consisting of insertion of an intramedullary nail. Patient did well after the surgery and there were no complications, she was excepted at a jail facility ([facility]) for inpatient rehab services. On 09/26/2024, patient was seen and examined:alert, oriented x3, no apparent distress and average body habitus General Appearance: cooperative, well kempt and well developed Orientation / Consciousness: awake, oriented to person, oriented to place and oriented to time HEENT normocephalic, head/scalp atraumatic and moist oral mucous membranes Eyes PERRL, EOMs intact bilaterally and conjunctivae normal Neck supple, no JVD, thyroid normal and no carotid bruits General: trachea midline Resp normal respiratory effort, no retractions, no use of accessory muscles and clear to auscultation bilaterally Auscultation: Negative for rales, rhonchi or wheezes Cardio regular rate, regular rhythm, S1 normal heart sound, S2 normal heart sound, no murmurs, no rub and no gallops GI normal to inspection, nondistended, normoactive bowel sounds, soft to palpation, non-tender and non-distended Extremity no clubbing, cyanosis or edema Skin no rashes or lesions noted General Skin Exam: no breakdown Neuro oriented x3, CN's II-XII intact bilaterally, no focal motor deficits and no sensory deficits noted Sensorium / Orientation: awake and alert Speech: speech normal Psych Psych Narrative: Patient exhibits some mild cognitive impairment Patient was transferred to jail facility in stable condition on 09/26/2024. Weight / BMI Weight Weight: 73.7 kg Body Mass Index (BMI) 26.1 ABG / Lab / Microbiology Data 09/26/24 05:21 09/24/24 04:05 Laboratory: Laboratory Results - last 24 hr 09/26/24 05:21: Hgb 7.5 L, Hct 23.2 L Microbiology: Microbiology 09/23/24 14:00 Urine Catheter - Catheter Urine Culture - Final Escherichia coli D/C Instructions DC O2, CPAP, BIPAP Needs Home O2 Discharge instructions: No Meaningful Use Info Meaningful Use Meaningful Use Diagnoses (Choose all that apply): None applicable Discharge Plan Admission Admit Date/Time: 09/23/24 02:55 Primary Reason for Your Visit: left hip fracture Attending Provider: Gage Hays Primary Care Provider: Lucio Ayoub Chi Consulting Providers: Braxton Salas; Vic Marques; Jensen Cali Discharge Orders/Prescriptions Prescriptions: New acetaminophen 500 mg Tablet 1,000 mg PO Q8 Qty: 0 0RF levothyroxine 75 mcg Tablet 75 mcg PO DAILY@0600 Qty: 0 0RF calcium carbonate 200 mg calcium (500 mg) Tablet,Chewable 500 mg PO TIDCM Qty: 0 0RF oxycodone 5 mg Tablet 5 mg PO Q4H PRN PRN (Reason: Pain Score 4-10) 2 Days Qty: 8 0RF cholecalciferol (vitamin D3) 25 mcg (1,000 unit) Tablet 25 mcg PO DAILY Qty: 1 0RF Eliquis 5 mg Tablet 2.5 mg PO BID Qty: 0 0RF Rx Instructions: give for 30 days pantoprazole 40 mg Tablet,Delayed Release (Dr/Ec) 40 mg PO DAILY Qty: 0 0RF ferrous sulfate 325 mg (65 mg iron) tablet,delayed release (DR/EC) 325 mg PO BID Qty: 1 0RF Discontinued levothyroxine 75 mcg tablet 75 mcg PO DAILY pantoprazole 40 mg tablet,delayed release (DR/EC) 40 mg PO DAILY Referrals / Follow Up: Braxton Salas DO [Med Staff - Active Staff] - See Referral Note (in 2 weeks) Lucio Ayoub Chi, MD [Primary Care Provider] - Disposition Disposition (needs filled in before D/C Order can be placed): Long-Term Facility Charges/Coding Visit Charges Inpatient E&M: 35415 Disch Hosp >30min
--- NOTE | 2024-09-26 12:36 | CASEMGMT ---
Addendum entered by Heidi Dowling 09/26/24 13:07: SW called pt [id number] to update on plans to discharge; pt d-i-l to be updated with transport time when available. OLAF Shanks Original Note: Social Work Precert has been obtained.? Physician updated and pt is ready for discharge today.? 7000 convalescent form completed in [facility]. SW met with pt and they are agreeable to discharge plan as stated above.? DCA and bedside nurse notified of discharge. DCA to complete all final arrangements and notifications. Disposition:[facility], skilled level of care under convalescent stay. OLAF Shanks
--- NOTE | 2024-09-26 13:26 | CASEMGMT ---
Addendum entered by Heidi Dowling 09/26/24 13:36: Pt [id number] Liza updated on 3:15PM transport time. Liza agreeable and reports that they will visit pt this evening. Plan: VALERIE; skilled level of care OLAF Shanks Original Note: Social Work- SW called [id number], Liza, to update on anticipated d/c, as precert has been obtained. SW will continue to keep Liza updated. Plan: ROSE, skilled level of care OLAF Shanks
--- NOTE | 2024-09-26 13:40 | CASEMGMT ---
Precert has been obtained. Physician updated and pt is ready for discharge today.? 7000 convalescent form previously completed in [facility] and sent along with discharge orders to [facility] via [facility]. Transportation arranged with [facility] for 1515 pickup via wheelchair van. SOLOMON SIMONS met with pt, pt sister and brother in law present in room as well, pt is agreeable to discharge plan as stated above. Bedside nurse notified of discharge time.
--- NOTE | 2024-09-26 15:58 | CASEMGMT ---
TC to Mary Ann Spear at [facility], she is aware pt dc'd this date to [facility]. Faxed DC information to her per request.
== END 2024-09-26 15:19 | disposition skilled nursing facility (03) | DRG 481 ==
LOC: ED 02:04 → MS3 03:21
PROVIDERS: Anesthesiology; Orthopaedic Surgery; Admitting Provider Internal Medicine; Emergency Provider Emergency Medicine; PCP Family Medicine Geriatric Medicine; Visit Provider Internal Medicine
PROC: 0QS736Z Reposition Left Upper Femur with Intramedullary Internal Fixation Device, Percutaneous Approach (ICD-10-PCS; principal; 2024-09-24 14:00)
DX: S72.142A Displaced intertrochanteric fracture of left femur, initial encounter for closed fracture (principal); D62 Acute posthemorrhagic anemia; G30.9 Alzheimer's disease, unspecified; E03.9 Hypothyroidism, unspecified; K21.9 Gastro-esophageal reflux disease without esophagitis; W18.30XA Fall on same level, unspecified, initial encounter; F02.80 Dementia in other diseases classified elsewhere, unspecified severity, without behavioral disturbance, psychotic disturbance, mood disturbance, and anxiety; R82.71 Bacteriuria; Y92.002 Bathroom of unspecified non-institutional (private) residence as the place of occurrence of the external cause; Z79.890 Hormone replacement therapy; Z79.899 Other long term (current) drug therapy
CPT/HCPCS: 36415; 71045; 73502; 73552; 76000; 80048; 80053; 81001; 83735; 84443; 85014; 85018; 85025; 85027; 85730; 86850; 86900; 86901; 87077; 87086; 87088; 87186; 93005; 97116; 97162; 97166; 97530; 97535; 99285; 99406; C1713; C1776; A4216; J2405; J2916

== ENCOUNTER → 2024-12-04 | Outpatient (REF) | payer MEDICARE, MEDICAID, SELFPAY | LOC: OLS.SW 05:00 | PROVIDERS: PCP Family Medicine Geriatric Medicine; Visit Provider Internal Medicine | DX: E03.9 Hypothyroidism, unspecified (principal) | CPT/HCPCS: 36415; 84443 ==

== ENCOUNTER → 2024-12-27 | Outpatient (REF) | payer MEDICARE, MEDICAID, SELFPAY ==
[2024-12-27 10:03] LABS: Vitamin D,25 Hydroxy 83.5 ng/mL (30-100)
== END ==
LOC: OLS.SW 05:00
PROVIDERS: PCP Family Medicine Geriatric Medicine; Visit Provider Internal Medicine
DX: E55.9 Vitamin D deficiency, unspecified (principal)
CPT/HCPCS: 36415; 82306

== ENCOUNTER → 2025-01-03 | Outpatient (REF) | payer MEDICARE, MEDICAID, SELFPAY ==
--- OUTSIDE RECORDS SUMMARY | 2025-01-03 03:46 | XMS RPT_ITS | CCD ---
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 Lucio Ayoub Chi Primary Care Provider Dr. Lucio Ayoub Chi Referring Provider MARGARITA Bronson Attending Provider MARGARITA Bronson Referring Provider Dr. Alli Montgomery Attending Provider 1([facility])[phone] Lucio Ayoub Chi Primary Care Provider 1([facility])[phone] Dr. Lucio Ayoub Chi Referring Provider MARGARITA Trejo Attending Provider [phone] Lucio Ayoub Chi Primary Care Provider 1([facility])[phone] Siddhartha Bliss Emergency Provider Dr. Rossy Saleem Admit Provider Dr. Rossy Saleem Attending Provider Dr. Rossy Saleem Other Provider Dr. Braxton Salas Attending Provider Dr. Braxton Salas Other Provider 1([facility])[phone] MD Artem Pina Attending Provider Dr. Trina Crawford Attending Provider 1([facility])[phone] Trina Crawford Other Provider Dr. Lucio Ayoub Chi Referring Provider Pablo AVILA PA Carlos Attending Provider Dr. Darinel John Attending Provider Dr. David Pisano Attending Provider Dr. Rossy Saleem Referring Provider MARGARITA Sunshine Referring Provider Dr. Alli Montgomery Attending Provider Mega WARE, Dr. Lucio Saxena Primary Care Provider [phone] Corie BRADFORD, Ronnell Attending Provider Corie BRADFORD, Ronnell Referring Provider [phone] Corie BRADFORD, Ronnell Other Provider [phone] Blayne WARE, Dr. Ponce Attending Provider [phone] Mega WARE, Dr. Lucio Saxena Attending Provider [phone] Mega WARE, Dr. Lucio Saxena Referring Provider Mega WARE, Dr. Lucio Saxena Primary Care Provider [phone] Mega WARE, Dr. Lucio Saxena Attending Provider Mega WARE, Dr. Lucio Saxena Referring Provider Maritza LEIJA, Dr. Limon Attending Provider Mega WARE, Dr. Lucio Saxena Primary Care Provider [phone] Mega WARE, Dr. Lucio Saxena Attending Provider Mega WARE, Dr. Lucio Saxena Referring Provider Refugio LEIJA, Dr. Sanders Emergency Provider 1([facility])[phone] de Marvin DO, Dr. Ho Admit Provider Unavail able de Marvin DO, Dr. Ho Attending Provider Unav ailable de Marvin DO, Dr. Ho Other Provider Unavail able Maritza LEIJA, Dr. Limon Other Provider Lis LEIJA, Dr. Almonte Attending Provider Viraj WARE, Dr. Styles Other Provider Lis LEIJA, Dr. Almonte Other Provider Harris WARE, Dr. Gutierres Attending Provider Unavaila [facility] Michael WARE, Dr. Fishman Attending Provider Dr. Gage Hays DO Referring Provider Harris WARE, Dr. Gutierres Referring Provider Jeana Montgomery MD, Dr. Carson Attending Provider Mega, Lucio Chi Attending Unavailable Mega, Lucio Chi Primary Care Unavailable Mega, Lucio Chi Referring Unavailable Mega, Lucio Chi Attending Unavailable Mega, Lucio Chi Primary Care Unavailable Mega, Lucio Chi Referring Unavailable Mega, Lucio Chi Attending Unavailable Mega, Lucio Chi Primary Care Unavailable Mega, Lucio Chi Primary Care Unavailable Vic Marques Consulting Unavailable Vic Marques Attending Unavailable Vic Marques Admitting Unavailable Braxton Salas Consulting Unavailable Braxton Salas Attending Unavailable Viraj, Jensen Consulting Unavailable Gage Hays Consulting Unavailable Gage Hays Attending Unavailable Mega, Luico Chi Primary Care Unavailable Mega, Lucio Chi Referring Unavailable Braxton Salas Attending Unavailable Mega, Ulcio Chi Referring Unavailable Mega, Lucio Chi Attending Unavailable Mega, Lucio Chi Primary Care Unavailable Mega, Lucio Chi Primary Care Unavailable Gage Hays Attending Unavailable Vic Marques Admitting Unavailable Braxton Salas Consulting Unavailable Vic Marques Consulting Unavailable Viraj, Jensen Consulting Unavailable Mega, Lucio Chi Primary Care Unavailable Gudla Nenita LANDA Attending Unavailable Mega, Lucio Chi Primary Care Unavailable Gudla Nenita LANDA Attending Unavailable Mega, Lucio Chi Primary Care Unavailable Gudla Nenita LANDA Attending Unavailable Gudla OLSLakshmiNenita Referring Unavailable Mega, Lucio Chi Primary Care Unavailable Mega, Lucio Chi Referring Unavailable Braxton Salas Attending Unavailable Mega, Lucio Chi Attending Unavailable Mega, Lucio Chi Primary Care Unavailable Mega, Lucio Chi Attending Unavailable Mega, Lucio Chi Primary Care Unavailable Mega, Lucio Chi Primary Care Unavailable Ronnell Cody Attending Unavailable Ronnell Cody Referring Unavailable Mega, Lucio Chi Referring Unavailable Mega, Lucio Chi Attending Unavailable Mega, Lucio Chi Primary Care Unavailable Mega, Lucio Chi Referring Unavailable Mega, Lucio Chi Attending Unavailable Mega, Lucio Chi Primary Care Unavailable Mega, Lucio Chi Primary Care Unavailable Gudla Nenita LANDA Attending Unavailable Gage Hays Referring Unavailable Mega, Lucio Chi Referring Unavailable Mega, Lucio Chi Primary Care Unavailable Braxton Salas Attending Unavailable Mega, Lucio Chi Primary Care Unavailable Alli Montgomery Attending Unavailable Rosario Cisneros Attending Unavailable Mgea, Lucio Chi Primary Care Unavailable Ronnell Cody Consulting Unavailable Ronnell Cody Referring Unavailable Mega, Lucio Chi Referring Unavailable Mega, Lucio Chi Consulting Unavailable Mega, Lucio Chi Primary Care Unavailable Mi Fajardo Attending Unavailable Mega, Lucio Chi Primary Care Unavailable Nenita Mc Attending Unavailable Mega, Lucio Chi Primary Care Unavailable Nenita Mc Attending Unavailable Medications Current Medications Medication Drug Class(es) Dates Sig (Normalized) Sig (Original) acetaminophen 650 mg rectal suppository (20 sources) Start: 10-08-2024 take 2 capsules by mouth every four hours as needed Acetaminophen 325 mg capsule Active 650 mg PO Q4H as needed October 08, 2024 12:00am Start: 10-08-2024 Acetaminophen 650 mg suppository Active 650 mg RC Q4H as needed October 08, 2024 12:00am Start: 09-26-2024 End: 10-08-2024 take 2 tablets by mouth every eight hours Acetaminophen 500 mg Tablet Discontinued 1000 mg PO EVERY 8 HOURS 0 0 September 26, 2024 12:00am October 08, 2024 9:32am Start: 02-01-2022 End: 02-17-2022 take 2 tablets by mouth three times daily Acetaminophen 500 mg tablet Discontinued 1000 mg PO THREE TIMES A DAY February 01, 2022 9:43pm February 17, 2022 7:28pm PAIN Start: 02-01-2022 End: 02-17-2022 take 1000 mg by mouth three times daily Acetaminophen Discontinued 1000 MG PO THREE TIMES A DAY February 01, 2022 9:43pm February 17, 2022 7:28pm Aluminum-Magnesium Hydroxide 225-200 mg/5 mL suspension (3 sources) Start: 10-08-2024 take 1 mL by mouth every four hours as needed Aluminum-Magnesium Hydroxide 225-200 mg/5 mL suspension Active 30 mL PO Q4H as needed October 08, 2024 12:00am apixaban 5 mg oral tablet (20 sources) Factor Xa Inhibitor Start: 09-26-2024 take 2.5 mg by mouth twice daily Apixaban (Eliquis) 5 mg Tablet Active 2.5 mg PO TWICE A DAY 0 0 September 26, 2024 12:00am give for 30 days Start: 02-01-2022 End: 03-24-2022 take 2.5 mg by mouth twice daily Apixaban (Eliquis) 5 mg Tablet Discontinued 2.5 mg PO BID@0800,1800 2 2 0 February 17, 2022 1:00am March 24, 2022 12:14pm ascorbic acid 500 mg oral capsule (20 sources) Vitamin C Start: 10-08-2024 Ascorbic Acid (Vitamin C) 500 mg capsule Active mg PO October 08, 2024 12:00am Start: 02-01-2022 End: 09-23-2024 take 1 tablet by mouth once daily Ascorbic Acid (Vitamin C) 500 mg Tablet Discontinued 500 mg PO DAILY@0800 30 30 0 February 17, 2022 1:00am September 23, 2024 1:26am bisacodyl 10 mg rectal suppository (6 sources) Stimulant Laxative Start: 10-08-2024 Bisacodyl 1 0 mg suppository Active 10 mg RC daily as needed October 08, 2024 12:00am Start: 10-08-2024 Bisacodyl (Fle et Bisacodyl) 10 mg/30 mL enema Active 5 mg RC ONCE October 08, 2024 12:00am calcium carbonate 500 mg chewable tablet (4 sources) Start: 09-26-2024 take 1 tablet by mouth three times daily at mealtime Calcium Carbonate 200 mg calcium (500 mg) Tablet,Chewable Active 500 mg PO 3 TIMES DAILY WITH MEALS 0 0 September 26, 2024 12:00am cholecalciferol 0.025 mg oral tablet (4 sources) Vitamin D Start: 09-26-2024 take 1 tablet by mouth once daily Cholecalciferol (Vitamin D3) 25 mcg (1,000 unit) Tablet Active 25 ug PO DAILY 1 0 September 26, 2024 12:00am doxycycline monohydrate 100 mg oral capsule (20 sources) Tetracycline- class Drug Start: 10-08-2024 take 1 capsule by mouth once daily Doxycycline Monohydrate 100 mg capsule Active 100 mg PO daily October 08, 2024 12:00am Start: 02-18-2022 End: 03-24-2022 take 1 capsule by mouth twice daily Doxycycline Monohydrate 100 mg Capsule Discontinued 100 mg PO TWICE A DAY 8 4 0 February 18, 2022 1:00am March 24, 2022 12:14pm Start: 04-12-2016 End: 03-11-2020 take 1 capsule by mouth twice daily Doxycycline Hyclate 100 MG capsule Discontinued 100 mg PO TWICE A DAY 28 0 April 12, 2016 1:00am March 11, 2020 2:13pm ferrous sulfate 325 mg delayed release oral tablet (20 sources) Start: 09-26-2024 take 1 tablet by mouth twice daily Ferrous Sulfate 325 mg (65 mg iron) tablet,delayed release (DR/EC) Active 325 mg PO TWICE A DAY 1 0 September 26, 2024 12:00am Start: 02-01-2022 End: 09-23-2024 take 1 tablet by mouth twice daily Ferrous Sulfate (Ferosul) 325 mg (65 mg iron) Tablet Discontinued 325 mg PO BID@1245,1745 60 30 0 February 17, 2022 1:00am September 23, 2024 1:26am guaiFENesin 20 mg/ml oral solution (3 sources) Start: 10-08-2024 take 200 mg by mouth every four hours as needed Guaifenesin 100 mg/5 mL liquid Active 200 mg PO Q4H as needed October 08, 2024 12:00am hydrOXYzine hydrochloride 25 mg oral tablet (3 sources) Antihistamine Start: 10-08-2024 Hydroxyzine Hc l 25 mg tablet Active 25 mg PO EVERY 6-8 HOURS as needed October 08, 2024 12:00am levothyroxine sodium 0.1 mg oral capsule (20 sources) l-Thyroxine Start: 10-08-2024 take 1 capsule by mouth once daily Levothyroxine 100 mcg capsule Active 100 ug PO daily October 08, 2024 12:00am Start: 03-11-2020 End: 10-08-2024 take 1 tablet by mouth once daily Levothyroxine 75 mcg Tablet Discontinued 75 ug PO DAILY@0600 0 0 September 26, 2024 12:00am October 08, 2024 9:37am Magnesium Hydroxide (3 sources) Start: 10-08-2024 take 1 mL by mouth once Magnesium Hydroxide (Milk Of Magnesia) 400 mg/5 mL suspension Active 30 mL PO ONCE October 08, 2024 12:00am Multivit,Stress Formula-Zinc (Stress B With Zinc) tablet (3 sources) Start: 10-08-2024 Multivit,Stres s Formula-Zinc (Stress B With Zinc) tablet Active {tbl} PO ONCE October 08, 2024 12:00am [id number] n-Lutein (Theragran-M Premier 50 Plus) 400-250-375 mcg tablet (3 sources) Start: 10-08-2024 take 50-400 tablets by mouth once daily [id number]- Lutein (Theragran-M Premier 50 Plus) 400-250-375 mcg tablet Active 1 {tbl} PO daily October 08, 2024 12:00am Nirmatrelvir-Ritonavir (19 sources) Start: 07-28-2021 Nirmatrelvir-R itonavir (Paxlovid (Eua)) 150 mg x 2- 100 [...] PO oxyCODONE hydrochloride 5 mg oral tablet (20 sources) Opioid Agonist Start: 09-26-2024 take 1 tablet by mouth every four hours as needed for pain Oxycodone 5 mg Tablet Active 5 mg PO EVERY 4 HOURS NEEDED as needed for Pain Score 4-10 8 2 0 September 26, 2024 Intertrochanteric fracture of left femur Start: 02-17-2022 End: 03-24-2022 take 1 tablet by mouth every four hours as needed for pain Oxycodone 5 mg Tablet Discontinued 5 mg PO EVERY 4 HOURS NEEDED as needed for Pain Score 6-10 18 3 0 February 17, 2022 March 24, 2022 12:14pm Closed fracture of right hip Start: 02-01-2022 End: 02-17-2022 take 1 tablet by mouth every six hours as needed for pain Oxycodone 5 mg tablet Discontinued 5 mg PO EVERY 6 HOURS as needed for pain 4 1 0 February 01, 2022 February 17, 2022 7:30pm Closed intertrochanteric fracture of right femur pantoprazole 40 mg delayed release oral tablet (9 sources) Proton Pump Inhibitor Start: 09-23-2024 End: 09-26-2024 take 1 tablet by mouth once daily Pantoprazole 40 mg Tablet,Delayed Release (Dr/Ec) Active 40 mg PO DAILY 0 0 September 26, 2024 12:00am Sennosides (Laxative (Sennosides)) 8.6 mg tablet (3 sources) Start: 10-08-2024 Sennosides (La xative (Sennosides)) 8.6 mg tablet Active 17.2 mg PO daily October 08, 2024 12:00am Completed/Discontinued Medications Medication Drug Class(es) Dates Sig (Normalized) Sig (Original) docusate sodium 50 mg / sennosides, long-term 8.6 mg oral tablet (14 sources) Start: 02-17-2022 End: 01-03-2024 Sennosides-Docusate Sodium (Stool Softener-Stimulant Laxat) 8.6-50 mg Tablet Discontinued 2 {tbl} PO BID@0800,1800 120 30 0 February 17, 2022 1:00am January 03, 2024 10:34am ergocalciferol 1.25 mg oral capsule (20 sources) Provitamin D2 Compound Start: 02-01-2022 End: 02-17-2022 Ergocalciferol (Vitamin D2) 1,250 mcg (50,000 unit) capsule Discontinued 1250 ug PO EVERY WEEK February 01, 2022 9:43pm February 17, 2022 7:29pm SUPPLEMENT x 6 weeks Food Supplemt, Lactose-Reduced (Ensure Plus High Protein) 0.08 gram-1.5 kcal/mL liquid (15 sources) Start: 02-01-2022 End: 02-17-2022 Food Supplemt, Lactose-Reduced (Ensure Plus High Protein) 0.08 gram-1.5 kcal/mL liquid Discontinued 120 mL PO 4 TIMES DAILY February 01, 2022 9:43pm February 17, 2022 7:29pm SUPPLEMENT Start: 02-01-2022 End: 02-17-2022 Food Supplemt, Lactose-Reduc [...] Plus High Protein) 0.08 gram-1.5 kcal/mL Liquid (15 sources) Start: 02-01-2022 End: 02-01-2022 Food Supplemt, Lactose-Reduc ed (Ensure Plus High Protein) 0.08 gram-1.5 kcal/mL Liquid Discontinued 120 mL PO 4 TIMES DAILY 237 0 February 01, 2022 1:00am February 01, 2022 [...] Supply Discontinued 1 EACH MC .PRN 1 180 March 24, 2022 1:00am September 20, 2022 12:03am Handicap placard to use as needed. Valid for 6 months from today. Start: 03-24-2022 Miscellaneous Medical Supply Active 1 EACH MC .PRN 1 180 March 24, 2022 12:00am Handicap placard to use as needed. Valid for 6 months from today. Miscellaneous Medical Supply [facility] (8 sources) Start: 03-24-2022 End: 09-20-2022 Miscellaneous Medical Supply [facility] Discontinued 1 NMA MC .PRN as needed for s/p right hip fx 1 180 0 March 24, 2022 1:00am September 19, 2022 12:00am September 20, 2022 12:03am Status post fracture of right hip Personal history of (healed) traumatic fracture Handicap placard to use as needed. Valid for 6 months from today. Start: 03-24-2022 End: 09-20-2022 Miscellaneous Medical Supply [facility] [place] Discontinued 1 NMA MC .PRN as needed for s/p right hip fx 1 180 March 24, 2022 1:00am September 19, 2022 12:00am September 20, 2022 12:03am Handicap placard to use as needed. Valid for 6 months from today. Start: 03-24-2022 End: 09-20-2022 [facility] Discontinued 1 NMA MC .PRN as needed for s/p right hip fx 1 180 March 24, 2022 12:00am September 18, 2022 11:00pm September 19, 2022 11:03pm Handicap placard to use as needed. Valid for 6 months from today. naproxen 500 mg oral tablet (19 sources) Nonsteroidal Anti-inflammatory Drug Start: 04-12-2016 End: 03-11-2020 take 1 tablet by mouth twice daily as needed Naproxen 500 MG tablet Discontinued 500 mg PO TWICE DAILY NEEDED April 12, 2016 1:00am March 11, 2020 2:13pm Nirmatrelvir-Riton avir (Paxlovid (Eua)) 150 mg x 2- 100 mg tablet (1 source) Start: 07-28-2021 End: 07-28-2021 Nirmatrelvir-Ricco navir (Paxlovid (Eua)) 150 mg x 2- 100 mg tablet Discontinued 0 PO .COMPLEX July 28, 2021 12:00am July 28, 2021 4:01pm take TWO 150 mg tablets of nirmatrelvir with ONE 100 mg tablet of ritonavir twice daily for 5 days PO polyethylene glycol 3350 11044 mg powder for oral solution (14 sources) Osmotic Laxative Start: 02-17-2022 End: 09-23-2024 take 17 g by mouth once daily Polyethylene Glycol 3350 17 gram Powder In Packet Discontinued 17 g PO DAILY@0800 30 30 0 February 17, 2022 1:00am September 23, 2024 1:26am Problems Active Problems Problem Classification Problem Date Documented Da te Episodic/Chronic Deficiency and other anemia (15 sources) Iron deficiency anemia; Translations: [Iron deficiency [...] unspecified] Onset: 07-14-2024 Chronic E Codes: Fall (20 sources) Fall; Translations: [Unspecified fall, initial encounter] Onset: 10-16-2024 Episodic Fracture of neck of femur (hip) (20 sources) Closed fracture of hip; Translations: [Fracture of unspecified part of neck of left femur, initial encounter for closed fracture] Onset: 10-16-2024 09-23-2024 Episodic Hemorrhoids (19 sources) Hemorrhoids; Translations: [Unspecified hemorrhoids] 03-11-2020 Episodic Immunizations and screening for infectious disease (19 sources) Requires diphtheria, tetanus and pertussis vaccination; Translations: [Encounter for immunization] 12-12-2020 Episodic Malaise and fatigue (18 sources) Asthenia; Translations: [Other malaise] Episodic Nonmalignant breast conditions (19 sources) Breast lump; Translations: [Unspecified lump in the right breast, unspecified quadrant] 03-11-2020 Episodic Nonspecific chest pain (18 sources) Chest wall pain; Translations: [Other chest pain] 09-20-2021 Episodic Open wounds of extremities (12 sources) Laceration of right thumb; Translations: [Laceration without foreign body of right thumb without damage to nail, initial encounter] 06-02-2023 Episodic Other aftercare (4 sources) Follow-up status; Translations: [Encounter for other orthopedic aftercare] 10-08-2024 Episodic Other aftercare (1 source) Encounter for other orthopedic aftercare; Translations: [Encounter for other orthopedic aftercare] Onset: 11-13-2024 Episodic Other fractures (6 sources) Fracture of rib; Translations: [Fracture of one rib, left side, initial encounter for closed fracture] 09-20-2021 Episodic Other fractures (12 sources) Fracture of left rib; Translations: [Fracture of one rib, left side, initial encounter for closed fracture] 09-20-2021 Episodic Other hereditary and degenerative nervous system conditions (13 sources) Impaired cognition; Translations: [Mild cognitive impairment, so stated] 01-03-2024 Chronic Other hereditary and degenerative nervous system conditions (1 source) Mild cognitive impairment, so stated; Translations: [Mild cognitive impairment of uncertain or unknown etiology] Onset: 10-16-2024 Chronic Other injuries and conditions due to external causes (19 sources) Closed injury of head; Translations: [Unspecified injury of head, initial encounter] 12-12-2020 Episodic Other injuries and conditions due to external causes (19 sources) Abrasion and/or friction burn of multiple sites; Translations: [Unspecified multiple injuries, initial encounter] 12-12-2020 Episodic Other injuries and conditions due to external causes (20 sources) H/O: hip fracture; Translations: [Personal history of (healed) traumatic fracture] 02-12-2022 Episodic Other injuries and conditions due to external causes (5 sources) Personal history of (healed) traumatic fracture; Translations: [Personal history of traumatic fracture] Onset: 10-16-2024 Episodic Other nervous system disorders (6 sources) Carpal tunnel syndrome of right wrist; Translations: [Carpal tunnel syndrome, right upper limb] 08-01-2024 Chronic Other screening for suspected conditions (not mental disorders or infectious disease) (19 sources) Mammography abnormal; Translations: [Other abnormal and inconclusive findings on diagnostic imaging of breast] 03-11-2020 Episodic Other upper respiratory infections (19 sources) Sinusitis; Translations: [Chronic sinusitis, unspecified] 04-13-2016 Chronic Residual codes; unclassified (19 sources) Family history of breast cancer; Translations: [Family history of malignant neoplasm of breast] 03-11-2020 Episodic Comment on above: Mother and Sister Sprains and strains (20 sources) Strain of knee; Translations: [Strain of unspecified muscle(s) and tendon(s) at lower leg level, right leg, initial encounter] Episodic Superficial injury; contusion (20 sources) Abrasion of face; Translations: [Abrasion of other part of head, initial encounter] Episodic Thyroid disorders (20 sources) Hypothyroidism; Translations: [Hypothyroidism, unspecified] Onset: 11-14-2024 Chronic Thyroid disorders (20 sources) Disorder of thyroid gland; Translations: [Disorder of thyroid, unspecified] Episodic Unclassified (4 sources) in 2 weeks Unclassified (1 source) Acute candidiasis of vulva and vagina; Translations: [Acute candidiasis of vulva and vagina] Onset: 04-26-2024 Viral infection (20 sources) Disease caused by 2019-nCoV; Translations: [COVID-19] Episodic Past or Other Problems Problem Classification Problem Date Documented Date Episodic/Chronic Fracture of neck of femur (hip) (20 sources) Closed intertrochanteric fracture; Translations: [Displaced intertrochanteric fracture of right femur, initial encounter for closed fracture] Onset: 05-24-2024 Episodic Other nervous system disorders (2 sources) Paresthesia of skin; Translations: [Paresthesia of skin] Onset: 02-21-2024 Episodic Spondylosis; intervertebral disc disorders; other back problems (1 source) Sciatica, right side; Translations: [Sciatica, right side] Onset: 05-24-2024 Episodic Results Test Name Value Interpretation Reference Range Facility Vitamin D,25 Hydroxyon 12-27 Vitamin D 25-OH 83.5 ng/mL Normal 30-100 [facility] Comment on above: Order Comment: 503.2 Result Comment: Roxie min D Status Deficiency: <20 ng/mL (50nmol/L) Insufficiency: 20-30 ng/mL (50-75 nmol/L) Sufficiency: 30-100 ng/mL (75-250 nmol/L) Toxicity: >100 ng/mL (>250 nmol/L) Performed By: #### L [id number], [id number] #### [facility] Laboratory [address] [place], [address] Thyroid Stim Hormone (TSH)on 12-04-2024 TSH 0.067 uIU/mL Low 0.300-4.200 [facility] Comment on above: Order Comment: 102.1 Performed By: #### L [id number] ####[facility] [id number] [place], [address] Basic Metabolic Profile (BMP )on 11-13-2024 BUN/CRE 19.7 RATIO Normal 10-20 [facility] Comment on above: Order Comment: ALLI TER SPECIMEN Performed By: #### L [id number] #### [facility] Laboratory [address] [place], [address] Calcium [Mass/Vol] 9.6 mg/dL Normal 7.6-11.0 [facility] Comment on above: Order Comment: ALLI TER SPECIMEN Performed By: #### L [id number] #### [facility] Laboratory [address] [place], [address] Chloride [Moles/Vol] 108 mmol/L Normal 98-[address] [facility] Comment on above: Order Comment: ALLI TER SPECIMEN Performed By: #### L [id number] #### [facility] [address] [place], [address] CO2 [Moles/Vol] 25.7 mmol/L Normal 21.0-32.0 [facility] Comment on above: Order Comment: ALLI TER SPECIMEN Performed By: #### L [id number] #### [facility] [address] [place], [address] Creatinine [Mass/Vol] 0.82 mg/dL Normal 0.70-1.20 [facility] Comment on above: Order Comment: ALLI TER SPECIMEN Performed By: #### L [id number] #### [facility] Laboratory [address] [place], [address] GAP 9 Normal 5-15 [facility] Comment on above: Order Comment: ALLI TER SPECIMEN Performed By: #### L [id number] #### [facility] [address] [place], [address] GFR/1.73 sq M.predicted among non-blacks MDRD (S/P/Bld) [Vol rate/Area] 73 mL/min/{1.73_m2} Normal >60 [facility] Comment on above: Order Comment: ALLI TER SPECIMEN Result Comment: mL/m in/1.73m2 CKD-EPI Creatinine Equation (2020) Performed By: #### L [id number] #### [facility] [address] [place], [address] Glucose [Mass/Vol] 84 mg/dL Normal 70-99 [facility] Comment on above: Order Comment: ALLI TER SPECIMEN Performed By: #### L 400.0001 #### [facility] [address] [place], [address] Potassium [Moles/Vol] 3.8 mmol/L Normal 3.3-5.1 [facility] Comment on above: Order Comment: ALLI TER SPECIMEN Performed By: #### L 400.0001 #### [facility] [address] [place], [address] Sodium [Moles/Vol] 143 mmol/L Normal 133-145 [facility] Comment on above: Order Comment: ALLI TER SPECIMEN Performed By: #### L 400.0001 #### [facility] [address] [place], [address] Urea nitrogen [Mass/Vol] 16 mg/dL Normal 4-19 [facility] Comment on above: Order Comment: ALLI TER SPECIMEN Performed By: #### L 400.0001 #### [facility] [address] [place], [address] CBC W/Diff, Automatedon -2 Absolute Lymph 2.03 X10 3/uL Normal 0.83-4.51 [facility] Comment on above: Order Comment: ALLI TER SPECIMEN Performed By: #### L 400.0001 #### [facility] [address] [place], [address] Absolute Neut 2.1 X10 3/uL Normal 2.0-7.7 [facility] Comment on above: Order Comment: ALLI TER SPECIMEN Performed By: #### L 400.0001 #### [facility] [address] [place], [address] Basophils/100 WBC (Bld) 0.4 % Normal 0-1 [facility] Comment on above: Order Comment: ALLI TER SPECIMEN Performed By: #### L 400.0001 #### [facility] [address] [place], [address] Eosinophils/100 WBC (Bld) 3.2 % Normal 0-5 [facility] Comment on above: Order Comment: ALLI TER SPECIMEN Performed By: #### L 400.0001 #### [facility] [address] [place], [address] Erythrocyte distribution width (RBC) [Ratio] 13.6 % Normal 11.6-14.6 [facility] Comment on above: Order Comment: ALLI TER SPECIMEN Performed By: #### L 400.0001 #### [facility] [address] [place], [address] Hematocrit (Bld) [Volume fraction] 35.7 % Low 37-47 [facility] Comment on above: Order Comment: ALLI TER SPECIMEN Performed By: #### L 400.0001 #### [facility] [address] [place], [address] Hemoglobin (Bld) [Mass/Vol] 11.5 g/dL Low 12.0-15.0 [facility] Comment on above: Order Comment: ALLI TER SPECIMEN Performed By: #### L 400.0001 #### [facility] [address] [place], [address] IG% 0.200 Normal 0.0-0.9 [facility] Comment on above: Order Comment: ALLI TER SPECIMEN Result Comment: IG% - Immature Granulocytes (promyelocytes, myelocytes and metamyelocytes) > 1% indicates that a LEFT SHIFT is Present. Performed By: #### L 400.0001 #### [facility] [address] [place], [address] Lymphocytes/100 WBC (Bld) 43.5 % High 19-41 [facility] Comment on above: Order Comment: ALLI TER SPECIMEN Performed By: #### L 400.0001 #### [facility] [address] [place], [address] MCH (RBC) [Entitic mass] 29.9 pg Normal 27.0-32.0 [facility] Comment on above: Order Comment: ALLI TER SPECIMEN Performed By: #### L 400.0001 #### [facility] [address] [place], [address] MCHC (RBC) [Mass/Vol] 32.2 g/dL Normal 32-36 [facility] Comment on above: Order Comment: ALLI TER SPECIMEN Performed By: #### L 400.0001 #### [facility] [address] [place], [address] MCV (RBC) [Entitic vol] 93.0 fL Normal 81-99 [facility] Comment on above: Order Comment: ALLI TER SPECIMEN Performed By: #### L 400.0001 #### [facility] [address] [place], [address] Monocytes/100 WBC (Bld) 8.6 % Normal 0-10 [facility] Comment on above: Order Comment: ALLI TER SPECIMEN Performed By: #### L [id number] #### [facility] [address] [place], [address] Neutrophils/100 WBC (Bld) 44.1 % Low 47-70 [facility] Comment on above: Order Comment: ALLI TER SPECIMEN Performed By: #### L [id number] #### [facility] [address] [place], [address] Nucleated RBC (Bld) [#/Vol] 0 10*3/uL Normal 0-5 [facility] Comment on above: Order Comment: ALLI TER SPECIMEN Performed By: #### L [id number] #### [facility] [address] [place], [address] Platelet mean volume (Bld) [Entitic vol] 10.6 fL Normal 6.2-12.0 [facility] Comment on above: Order Comment: ALLI TER SPECIMEN Performed By: #### L [id number] #### [facility] [address] [place], [address] Platelets (Bld) [#/Vol] 294 10*3/uL Normal 150-450 [facility] Comment on above: Order Comment: ALLI TER SPECIMEN Performed By: #### L 400.0001 #### [facility] [address] [place], [address] RBC (Bld) [#/Vol] 3.84 10*6/uL Low 4.2-5.4 [facility] Comment on above: Order Comment: ALLI TER SPECIMEN Performed By: #### L 400.0001 #### [facility] [address] [place], [address] RDW SD 46.5 fl High 35.1-43.9 [facility] Comment on above: Order Comment: ALLI TER SPECIMEN Performed By: #### L 400.0001 #### [facility] [address] [place], [address] WBC (Bld) [#/Vol] 4.7 10*3/uL Normal 4.4-11.0 [facility] Comment on above: Order Comment: ALLI TER SPECIMEN Performed By: #### L [id number] #### [facility] [address] [place], [address] Femur Min 2 Viewson 10-23-19 Femur Min 2 Views [facility] Imaging Services [address] [place] [address] Femur Min 2 Views MR#: [id number] Acct: [id number] Name: JAEL HUGGINS Rep #: [id number] : 1945 F 79 From: Adrianne medrano MD PCP: Dr. Lucio Ayoub MD Status: DEP AMB Study: Femur Min 2 Views Date of Exam: 10/22/24 Exam# [id number] Ordering Dr: Braxton Salas DO PROCEDURE: FEMUR MIN 2 VIEWS 10/22/2024 REASON FOR EXAM: S/P FEMUR FRACTURE TECHNIQUE: FEMUR MIN 2 VIEWS COMPARISON: 09/24/2024. FINDINGS: Open reduction internal fixation of left intertrochanteric fracture in good alignment. Minimal callus formation is noted at the level of the fracture line. Mild osteopenia of the visualized bones. Degenerative joint disease. No fracture or dislocation is seen. No lytic or blastic bone lesion is noted. RAD/Femur Min 2 Views IMPRESSION: Open reduction internal fixation of left intertrochanteric fracture in good alignment. Minimal callus formation is noted at the level of the fracture line. Mild osteopenia of the visualized bones. Degenerative joint disease. Reading Location: [place] [address] CC: Dr. Braxton Salas DO; Dr. Lucio Ayoub MD Health And Safety Instructor: Signed Normal [facility] Orthopedic Visit Reporton Orthopedic Visit Report [facility] [address] [place] [address] [address] [place] [address] OFFICE VISIT Date of Service: 10/22/24 MR#: [id number] Acct: [id number] Name: JAEL HUGGINS Rep #: [id number] : 1945 Provider: Dr. Braxton wayne DO Age/Sex: 79/F Location[place] [facility] Status: Signed Intake Vital Signs 09/23/24 03:57 Height 5 ft 6 in Intake Visit Reasons: LEFT HIP Chief Complaint: incision check Allergies No Known Allergies Allergy (Verified 10/22/24 09:51) Medications ???Medication ???Instructions ???Recorded ???Confirmed ???Type apixaban 5 mg tablet (Eliquis) 2.5 mg (1/2 x 5 mg) PO BID #0 tabs 09/26/24 10/22/24 Rx calcium carbonate 500 mg (2.5 x 200 mg calcium (500 09/26/24 10/22/24 Rx mg)) PO TIDCM #0 tabs cholecalciferol (vitamin D3) 25 25 mcg PO DAILY #1 TAB 09/26/24 Rx mcg (1,000 unit) tablet ferrous sulfate 325 mg (65 mg 325 mg PO BID #1 TAB 09/26/2407/13 Rx iron) tablet,delayed release oxycodone 5 mg tablet 5 mg PO Q4H PRN PRN Pain Score 12/1310/22/24 Rx 4-10 2 days #8 tabs pantoprazole 40 mg tablet,delayed 40 mg PO DAILY #0 tabs 09/26/24 0 10/22/24 Rx release acetaminophen 325 mg capsule 650 mg PO Q4H PRN 10/08/24 5 History acetaminophen 650 mg rectal 650 mg IA Q4H PRN 10/08/24 5 History suppository aluminum-magnesium hydroxide 225 30 ml PO Q4H PRN 10/08/24 10/22/24 History mg-200 mg/5 mL oral suspension ascorbic acid (vitamin C) 500 mg mg PO 10/08/24 10/22/24 History capsule bisacodyl 10 mg rectal suppository 10 mg IA QDAY PRN 10/08/2410/22 History bisacodyl 10 mg/30 mL enema (Fleet 5 mg IA ONCE 10/08/24 10/22/24 H istory Bisacodyl) doxycycline monohydrate 100 mg 100 mg PO QDAY 10/08/24 10/22/24 H istory capsule guaifenesin 100 mg/5 mL oral liquid 200 mg PO Q4H PRN 10/08/2407/13 History hydroxyzine HCl 25 mg tablet 25 mg PO Q6-8H PRN 10/08/24 History levothyroxine 100 mcg capsule 100 mcg PO QDAY 10/08/24 10/22/24 History magnesium hydroxide 400 mg/5 mL 30 ml PO ONCE 10/08/24 10/22/24 Hi story oral suspension (Milk of Magnesia) multivit,stress formula-zinc tab PO ONCE 10/08/24 10/22/24 Hist ory tablet (Stress B With Zinc tablet) efdxczqq-fuz-ohmdb acid 400 1 tab PO QDAY 10/08/24 10/22/24 Hi story mcg-coQ10 250 mcg-lycop 375 mcg-lut tablet (Theragran-M Premier 50 Plus) sennosides 8.6 mg tablet (Laxative 17.2 mg PO QDAY 10/08/24 5 History (sennosides)) Have you fallen in the past year?: Yes PFSH Medical History Intertrochanteric fracture of left hip Closed left hip fracture Fall Mild cognitive impairment S/P right hip fracture Hypothyroidism Frontal dementia Contusion of right knee Strain of right [...] substance use type: does not use HPI LEFT HIP Details: This documentation accurately reflects the service provided and the decisions made by me, Dr. Braxton Salas, DO 10/22/24 0800. Part of today???s visit was documented by Miryam FU, acting as scribe. JAEL HUGGINS is a 79 year old F here today for 2 week f/u incision check following 4 weeks post-op right hip subtrochanteric femur fracture DOS 09/24/2024. She states that she is doing well. When she is sitting she denies having any pain but whenever she moves the hip she does have pain. She states that she is in PT and has been walking with a walker during therapy. Patient did complete her antibiotic. No fevers or chills and her erythema has improved dramatically. 10/08/2024 visit:2 weeks postop right hip subtrochanteric femur fracture DOS 09/24/2024. Patient states she is still having some pain in the right today. Patient states she is in physical therapy and it is going well. She states she has not put any weight on the leg yet. Plan:Patient is currently at [facility]. She does have some erythema over the proximal incision , concern for possible early cellulitis versus postsurgical inflammation , I would like patient to take Bactrim DS 1 p.o. twice daily for 7 days to start today. I would like to reevaluate her incision in 2 weeks and have x-rays at that time of (more content not included)... Normal [facility] Anion gap in Serum or Plasma Ordered By: Nenita Iglesias on 10-09-2024 Anion gap [Moles/Vol] 10 mmol/L - [facility] BUN/creatinine ratioOrdered By: Nenita Iglesias on 10-09-2024 Urea nitrogen/Creatinine [Mass ratio] 16.7 mg/mg - [facility] Basic Metabolic Profile (BMP )on 10-09-2024 BUN/CRE 16.7 RATIO Normal - [facility] Comment on above: Order Comment: ALLI TER SPECIMEN Performed By: #### L [id number] #### [facility] [address] [place], [address] Calcium [Mass/Vol] 9.4 mg/dL Normal 7.6-11.0 [facility] Comment on above: Order Comment: ALLI TER SPECIMEN Performed By: #### L [id number] #### [facility] [address] [place], [address] Chloride [Moles/Vol] 107 mmol/L Normal 98-[address] [facility] Comment on above: Order Comment: ALLI TER SPECIMEN Performed By: #### L [id number] #### [facility] [address] [place], [address] CO2 [Moles/Vol] 23.7 mmol/L Normal 21.0-32.0 [facility] Comment on above: Order Comment: ALLI TER SPECIMEN Performed By: #### L 400.0001 #### [facility] [address] [place], [address] Creatinine [Mass/Vol] 0.62 mg/dL Low 0.70-1.20 [facility] Comment on above: Order Comment: ALLI TER SPECIMEN Performed By: #### L 400.0001 #### [facility] [address] [place], [address] GAP 10 Normal 5-15 [facility] Comment on above: Order Comment: ALLI TER SPECIMEN Performed By: #### L [id number] #### [facility] [address] [place], [address] GFR/1.73 sq M.predicted among non-blacks MDRD (S/P/Bld) [Vol rate/Area] 91 mL/min/{1.73_m2} Normal >60 [facility] Comment on above: Order Comment: ALLI TER SPECIMEN Result Comment: mL/m in/1.73m2 CKD-EPI Creatinine Equation (2020) Performed By: #### L [id number] #### [facility] [address] [place], [address] Glucose [Mass/Vol] 91 mg/dL Normal 70-99 [facility] Comment on above: Order Comment: ALLI TER SPECIMEN Performed By: #### L [id number] #### [facility] [address] [place], [address] Potassium [Moles/Vol] 3.9 mmol/L Normal 3.3-5.1 [facility] Comment on above: Order Comment: ALLI TER SPECIMEN Performed By: #### L 400.0001 #### [facility] [address] [place], [address] Sodium [Moles/Vol] 141 mmol/L Normal 133-145 [facility] Comment on above: Order Comment: ALLI TER SPECIMEN Performed By: #### L [id number] #### [facility] [address] [place], [address] Urea nitrogen [Mass/Vol] 10 mg/dL Normal 4-19 [facility] Comment on above: Order Comment: ALLI TER SPECIMEN Performed By: #### L 400.0001 #### [facility] [address] [place], [address] CBC-Complete Blood Cnt No Di ffon 10-09-2024 Erythrocyte distribution width (RBC) [Ratio] 15.8 % High 11.6-14.6 [facility] Comment on above: Order Comment: ALLI TER SPECIMEN Performed By: #### L 400.0001 #### [facility] [address] [place], [address] Hematocrit (Bld) [Volume fraction] 31.2 % Low 37-47 [facility] Comment on above: Order Comment: ALLI TER SPECIMEN Performed By: #### L [id number] #### [facility] [address] [place], [address] Hemoglobin (Bld) [Mass/Vol] 9.8 g/dL Low 12.0-15.0 [facility] Comment on above: Order Comment: ALLI TER SPECIMEN Performed By: #### L 400.0001 #### [facility] [address] [place], [address] MCH (RBC) [Entitic mass] 29.6 pg Normal 27.0-32.0 [facility] Comment on above: Order Comment: ALLI TER SPECIMEN Performed By: #### L 400.0001 #### [facility] [address] [place], [address] MCHC (RBC) [Mass/Vol] 31.4 g/dL Low 32-36 [facility] Comment on above: Order Comment: ALLI TER SPECIMEN Performed By: #### L [id number] #### [facility] [address] [place], [address] MCV (RBC) [Entitic vol] 94.3 fL Normal 81-99 [facility] Comment on above: Order Comment: ALLI TER SPECIMEN Performed By: #### L 400.0001 #### [facility] [address] [place], [address] Platelet mean volume (Bld) [Entitic vol] 9.3 fL Normal 6.2-12.0 [facility] Comment on above: Order Comment: ALLI TER SPECIMEN Performed By: #### L 400.0001 #### [facility] [address] [place], [address] Platelets (Bld) [#/Vol] 578 10*3/uL High 150-450 [facility] Comment on above: Order Comment: ALLI TER SPECIMEN Performed By: #### L 400.0001 #### [facility] [address] [place], [address] RBC (Bld) [#/Vol] 3.31 10*6/uL Low 4.2-5.4 [facility] Comment on above: Order Comment: ALLI TER SPECIMEN Performed By: #### L 400.0001 #### [facility] [address] [place], [address] RDW SD 54.1 fl High 35.1-43.9 [facility] Comment on above: Order Comment: ALLI TER SPECIMEN Performed By: #### L 400.0001 #### [facility] [address] [place], [address] WBC (Bld) [#/Vol] 6.1 10*3/uL Normal 4.4-11.0 [facility] Comment on above: Order Comment: ALLI TER SPECIMEN Performed By: #### L 400.0001 #### [facility] [address] [place], [address] Carbon dioxide, total [Moles /volume] in Central venous bloodOrdered By: Nenita Iglesias on 10-09-2024 CO2 [Moles/Vol] 23.7 mmol/L 21.0-32.0 [facility] Chloride assayOrdered By: Trip Iglesias on 10-09-2024 Chloride [Moles/Vol] 107 mmol/L 98-[address] [facility] Erythrocyte distribution wid th ratioOrdered By: Nenita Iglesias on 10-09-2024 Erythrocyte distribution width (RBC) [Ratio] 15.8 % High 11.6-14.6 [facility] Erythrocyte distribution wid th standard deviationOrdered By: Nenita Iglesias on 10-09-2024 Erythrocyte distribution width (RBC) [Ratio] 54.1 fl High 35.1-43.9 [facility] Glomerular filtration rate ( GFR) estimation/1.73 sq m using serum, plasma, or whole bOrdered By: Nenita Iglseias on 10-09-2024 GFR/1.73 sq M.predicted among non-blacks MDRD (S/P/Bld) [Vol rate/Area] 91 mL/min/{1.73_m2} >60 [facility] Comment on above: mL/min/1.73m2 CKD-EP I Creatinine Equation (2020) Hematocrit Auto (Bld) [Volum e fraction]Ordered By: Nenita Iglesias on 10-09-2024 Hematocrit (Bld) [Volume fraction] 31.2 % Low 37-47 [facility] Hemoglobin measurementOrdere d By: Nenita Iglesias on 10-09-2024 Hemoglobin (Bld) [Mass/Vol] 9.8 g/dL Low 12.0-15.0 [facility] MCV (mean corpuscular volume ) determinationOrdered By: Nenita Iglesias on 10-09-2024 MCV (RBC) [Entitic vol] 94.3 fL 81-99 [facility] Magnesiumon 10-09-2024 Magnesium [Mass/Vol] 2.3 mg/dL High 1.5-2.[address] [facility] Comment on above: Order Comment: [facility] SPECIMEN Performed By: #### L 400.0001 #### [facility] [place], [address] Magnesium measurement (mass/ volume)Ordered By: Nenita Iglesias on 10-09-2024 Magnesium (Unsp spec) [Mass/Vol] 2.3 mg/dL High 1.5-2.2 [facility] Mean corpuscular hemoglobin (MCH) determinationOrdered By: Nenita Iglesias on 10-09-2024 MCH (RBC) [Entitic mass] 29.6 pg 27.0-32.0 [facility] Mean corpuscular hemoglobin concentration (MCHC) determinationOrdered By: Nenita Iglesias on 10-09-2024 MCHC (RBC) [Mass/Vol] 31.4 g/dL Low 32-36 [facility] Mean platelet volume determi nationOrdered By: Nenita Iglesias on 10-09-2024 Platelet mean volume (Bld) [Entitic vol] 9.3 fL 6.2-12.0 [facility] Platelet countOrdered By: Trip Iglesias on 10-09-2024 Platelets (Bld) [#/Vol] 578 10*3/uL High 150-450 [facility] Potassium measurement (mass/ volume)Ordered By: Nenita Iglesias on 10-09-2024 Potassium (Unsp spec) [Mass/Vol] 3.9 mmol/L 3.3-5.1 [facility] RBC Auto (Bld) [#/Vol]Ordere d By: Nenita gIlesias on 10-09-2024 RBC (Bld) [#/Vol] 3.31 10*6/uL Low 4.2-5.4 [facility] Serum creatinine measurement (mass/volume)Ordered By: Nenita Iglesias on 10-09-2024 Creatinine [Mass/Vol] 0.62 mg/dL Low 0.70-1.20 [facility] Serum glucose measurement (m ass/volume)Ordered By: Nenita Iglesias on 10-09-2024 Glucose [Mass/Vol] 91 mg/dL 70-99 [facility] Serum or plasma calcium guy urement (mass/volume)Ordered By: Nenita Iglesias on 10-09-2024 Calcium [Mass/Vol] 9.4 mg/dL 7.6-11.0 [facility] Serum or plasma urea nitroge n measurement (mass/volume)Ordered By: Nenita Iglesias on 10-09-2024 Urea nitrogen [Mass/Vol] 10 mg/dL 4-19 [facility] Sodium levelOrdered By: Erickson Iglesias on 10-09-2024 Sodium [Moles/Vol] 141 mmol/L 133-145 [facility] White blood cell (WBC) count Ordered By: Nenita Iglesias on 10-09-2024 WBC (Bld) [#/Vol] 6.1 10*3/uL 4.4-11.0 [facility] Orthopedic Visit Reporton Orthopedic Visit Report [facility] [address] [place] [address] [address] [place] [address] OFFICE VISIT Date of Service: 10/08/24 MR#: [id number] Acct: [id number] Name: JAEL HUGGINS Rep #: [id number] : 1945 Provider: Dr. Braxton wayne DO Age/Sex: 79/F Location[place] [facility] Status: Signed Intake Vital Signs 09/23/24 03:57 Height 5 ft 6 in Intake Visit Reasons: LEFT HIP Chief Complaint: Left Hip 2 Week Post-Op Accompanied by: Daughter In Law Is patient in pain?: Yes Allergies No Known Allergies Allergy (Verified 10/08/24 09:30) Medications ???Medication ???Instructions ???Recorded ???Confirmed ???Type apixaban 5 mg tablet (Eliquis) 2.5 mg (1/2 x 5 mg) PO BID #0 tabs 09/26/24 10/08/24 Rx calcium carbonate 500 mg (2.5 x 200 mg calcium (500 09/26/24 10/08/24 Rx mg)) PO TIDCM #0 tabs cholecalciferol (vitamin D3) 25 25 mcg PO DAILY #1 TAB 09/26/24 Rx mcg (1,000 unit) tablet ferrous sulfate 325 mg (65 mg 325 mg PO BID #1 TAB 09/26/2409/19 Rx iron) tablet,delayed release oxycodone 5 mg tablet 5 mg PO Q4H PRN PRN Pain Score 12/1310/08/24 Rx 4-10 2 days #8 tabs pantoprazole 40 mg tablet,delayed 40 mg PO DAILY #0 tabs 09/26/24 0 10/08/24 Rx release acetaminophen 325 mg capsule 650 mg PO Q4H PRN 10/08/24 5 History acetaminophen 650 mg rectal 650 mg IA Q4H PRN 10/08/24 5 History suppository aluminum-magnesium hydroxide 225 30 ml PO Q4H PRN 10/08/24 10/08/24 History mg-200 mg/5 mL oral suspension ascorbic acid (vitamin C) 500 mg mg PO 10/08/24 10/08/24 History capsule bisacodyl 10 mg rectal suppository 10 mg IA QDAY PRN 10/08/2410/08 History bisacodyl 10 mg/30 mL enema (Fleet 5 mg IA ONCE 10/08/24 10/08/24 H istory Bisacodyl) doxycycline monohydrate 100 mg 100 mg PO QDAY 10/08/24 10/08/24 H istory capsule guaifenesin 100 mg/5 mL oral liquid 200 mg PO Q4H PRN 10/08/2409/19 History hydroxyzine HCl 25 mg tablet 25 mg PO Q6-8H PRN 10/08/24 History levothyroxine 100 mcg capsule 100 mcg PO QDAY 10/08/24 10/08/24 History magnesium hydroxide 400 mg/5 mL 30 ml PO ONCE 10/08/24 10/08/24 Hi story oral suspension (Milk of Magnesia) multivit,stress formula-zinc tab PO ONCE 10/08/24 10/08/24 Hist ory tablet (Stress B With Zinc tablet) mlhbdsxx-xoa-rtrvb acid 400 1 tab PO QDAY 10/08/24 10/08/24 Hi story mcg-coQ10 250 mcg-lycop 375 mcg-lut tablet (Theragran-M Premier 50 Plus) sennosides 8.6 mg tablet (Laxative 17.2 mg PO QDAY 10/08/24 5 History (sennosides)) Have you fallen in the past year?: Yes PFSH Medical History Intertrochanteric fracture of left hip Closed left hip fracture Fall Mild cognitive impairment S/P right hip fracture Hypothyroidism Frontal dementia Contusion of right knee Strain of right [...] substance use type: does not use HPI LEFT HIP Details: This documentation accurately reflects the service provided and the decisions made by me, Dr. Braxton Salas, DO 10/08/24 0749. Part of today???s visit was documented by Grisel Chan ATC, acting as scribe. JAEL HUGGINS is a 79 year old F here today for 2 weeks postop right hip subtrochanteric femur fracture DOS 09/24/2024. Patient states she is still having some pain in the right today. Patient states she is in physical therapy and it is going well. She states she has not put any weight on the leg yet. Ortho Exam General General: Yes no acute distress Neurologic: Yes alert and Yes oriented x3 Psychologic: Yes reasonable and appropriate Left Hip Skin/Wound: Yes healing, Yes suture/cedrick removed and Yes Erythema Hip: Present erythema HIP: no calf pain, able to move ankle. good ankle flexion and extension there is erythema over the most proximal incision with some induration and tenderness no fluctuance. She is neurovascular tact EHL tibialis anterior gastrocsoleus intact station light touch palpable Supplemental Info 09/24/2024 right femur long cephalomedullary fixation: Dr. Salas for fracture 01/25/2024 EMG: Electrodiagnostic findings suggestive of right-sided median mononeuropathy. Thi (more content not included)... Normal [facility] Anion gap in Serum or Plasma Ordered By: Nenita Iglesias on 10-02-2024 Anion gap [Moles/Vol] 11 mmol/L 08-02 [facility] BUN/creatinine ratioOrdered By: Nenita Iglesias on 10-02-2024 Urea nitrogen/Creatinine [Mass ratio] 18.4 mg/mg 01-07 [facility] Basic Metabolic Profile (BMP )on 10-02-2024 BUN/CRE 18.4 RATIO Normal 01-07 [facility] Comment on above: Order Comment: 102.1 Performed By: #### L [id number], [id number] #### [facility] Laboratory [address] [place], [address] Calcium [Mass/Vol] 8.9 mg/dL Normal 7.6-11.0 [facility] Comment on above: Order Comment: 102.1 Performed By: #### L 501.5200, [id number] #### [facility] Laboratory [address] [place], [address] Chloride [Moles/Vol] 105 mmol/L Normal 98-[address] [facility] Comment on above: Order Comment: 102.1 Performed By: #### L [id number], [id number] #### [facility] Laboratory [address] [place], [address] CO2 [Moles/Vol] 24.1 mmol/L Normal 21.0-32.0 [facility] Comment on above: Order Comment: 102.1 Performed By: #### L 501.5200, [id number] #### [facility] Laboratory [address] [place], [address] Creatinine [Mass/Vol] 0.63 mg/dL Low 0.70-1.20 [facility] Comment on above: Order Comment: 102.1 Performed By: #### L 501.5200, [id number] #### [facility] Laboratory [address] [place], [address] GAP 11 Normal 5-15 [facility] Comment on above: Order Comment: 102.1 Performed By: #### L 501.5200, [id number] #### [facility] Laboratory [address] [place], [address] GFR/1.73 sq M.predicted among non-blacks MDRD (S/P/Bld) [Vol rate/Area] 90 mL/min/{1.73_m2} Normal >60 [facility] Comment on above: Order Comment: 102.1 Result Comment: mL/m in/1.73m2 CKD-EPI Creatinine Equation (2020) Performed By: #### L 501.5200, L5.20 #### [facility] Laboratory [address] [place], [address] Glucose [Mass/Vol] 91 mg/dL Normal 70-99 [facility] Comment on above: Order Comment: 102.1 Performed By: #### L 501.5200, [id number] #### [facility] Laboratory [address] [place], [address] Potassium [Moles/Vol] 3.5 mmol/L Normal 3.3-5.1 [facility] Comment on above: Order Comment: 102.1 Performed By: #### L 501.5200, [id number] #### [facility] Laboratory [address] [place], [address] Sodium [Moles/Vol] 140 mmol/L Normal 133-145 [facility] Comment on above: Order Comment: 102.1 Performed By: #### L 501.5200, [id number] #### [facility] Laboratory [address] [place], [address] Urea nitrogen [Mass/Vol] 12 mg/dL Normal 4-19 [facility] Comment on above: Order Comment: 102.1 Performed By: #### L 501.5200, [id number] #### [facility] Laboratory [address] [place], [address] CBC-Complete Blood Cnt No Martina boydon 10-02-2024 Erythrocyte distribution width (RBC) [Ratio] 15.5 % High 11.6-14.6 [facility] Comment on above: Order Comment: 102.1 Performed By: #### L 501.5200, [id number] #### [facility] Laboratory [address] [place], [address] Hematocrit (Bld) [Volume fraction] 28.0 % Low 37-47 [facility] Comment on above: Order Comment: 102.1 Performed By: #### L 501.5200, [id number] #### [facility] Laboratory [address] [place], [address] Hemoglobin (Bld) [Mass/Vol] 9.0 g/dL Low 12.0-15.0 [facility] Comment on above: Order Comment: 102.1 Performed By: #### L 501.5200, [id number] #### [facility] Laboratory [address] [place], [address] MCH (RBC) [Entitic mass] 29.6 pg Normal 27.0-32.0 [facility] Comment on above: Order Comment: 102.1 Performed By: #### L 501.5200, [id number] #### [facility] Laboratory [address] [place], [address] MCHC (RBC) [Mass/Vol] 32.1 g/dL Normal 32-36 [facility] Comment on above: Order Comment: 102.1 Performed By: #### L 501.5200, [id number] #### [facility] Laboratory [address] [place], [address] MCV (RBC) [Entitic vol] 92.1 fL Normal 81-99 [facility] Comment on above: Order Comment: 102.1 Performed By: #### L 501.5200, [id number] #### [facility] Laboratory [address] [place], [address] Platelet mean volume (Bld) [Entitic vol] 9.4 fL Normal 6.2-12.0 [facility] Comment on above: Order Comment: 102.1 Performed By: #### L 501.5200, [id number] #### [facility] Laboratory [address] [place], [address] Platelets (Bld) [#/Vol] 452 10*3/uL High 150-450 [facility] Comment on above: Order Comment: 102.1 Performed By: #### L [id number], [id number] #### [facility] Laboratory [address] [place], [address] RBC (Bld) [#/Vol] 3.04 10*6/uL Low 4.2-5.4 [facility] Comment on above: Order Comment: 102.1 Performed By: #### L [id number], [id number] #### [facility] Laboratory [address] [place], [address] RDW SD 50.2 fl High 35.1-43.9 [facility] Comment on above: Order Comment: 102.1 Performed By: #### L [id number], [id number] #### [facility] Laboratory [address] [place], [address] WBC (Bld) [#/Vol] 7.2 10*3/uL Normal 4.4-11.0 [facility] Comment on above: Order Comment: 102.1 Performed By: #### L [id number], [id number] #### [facility] Laboratory [address] [place], [address] Carbon dioxide, total [Moles /volume] in Central venous bloodOrdered By: Nenita Iglesias on 10-02-2024 CO2 [Moles/Vol] 24.1 mmol/L 21.0-32.0 [facility] Chloride assayOrdered By: Trip Iglesias on 10-02-2024 Chloride [Moles/Vol] 105 mmol/L 98-[address] [facility] Erythrocyte distribution wid th ratioOrdered By: Nenita Iglesias on 10-02-2024 Erythrocyte distribution width (RBC) [Ratio] 15.5 % High 11.6-14.6 [facility] Erythrocyte distribution wid th standard deviationOrdered By: Nenita Iglesias on 10-02-2024 Erythrocyte distribution width (RBC) [Ratio] 50.2 fl High 35.1-43.9 [facility] Glomerular filtration rate ( GFR) estimation/1.73 sq m using serum, plasma, or whole bOrdered By: Nenita Iglesias on 10-02-2024 GFR/1.73 sq M.predicted among non-blacks MDRD (S/P/Bld) [Vol rate/Area] 90 mL/min/{1.73_m2} >60 [facility] Comment on above: mL/min/1.73m2 CKD-EP I Creatinine Equation (2020) Hematocrit Auto (Bld) [Volum e fraction]Ordered By: Nenita Iglesias on 10-02-2024 Hematocrit (Bld) [Volume fraction] 28.0 % Low 37-47 [facility] Hemoglobin measurementOrdere d By: Nenita Iglesias on 10-02-2024 Hemoglobin (Bld) [Mass/Vol] 9.0 g/dL Low 12.0-15.0 [facility] MCV (mean corpuscular volume ) determinationOrdered By: Nenita Iglesias on 10-02-2024 MCV (RBC) [Entitic vol] 92.1 fL 81-99 [facility] Magnesiumon 10-02-2024 Magnesium [Mass/Vol] 2.2 mg/dL Normal 1.5-2.[address] [facility] Comment on above: Order Comment: 102.1 Performed By: #### L [id number], [id number] #### [facility] Laboratory [address] [place], [address] Magnesium measurement (mass/ volume)Ordered By: Nenita Iglesias on 10-02-2024 Magnesium (Unsp spec) [Mass/Vol] 2.2 mg/dL 1.5-2.2 [facility] Mean corpuscular hemoglobin (MCH) determinationOrdered By: Nenita Iglesias on 10-02-2024 MCH (RBC) [Entitic mass] 29.6 pg 27.0-32.0 [facility] Mean corpuscular hemoglobin concentration (MCHC) determinationOrdered By: Nenita Iglesias on 10-02-2024 MCHC (RBC) [Mass/Vol] 32.1 g/dL 32-36 [facility] Mean platelet volume determi nationOrdered By: Nenita Iglesias on 10-02-2024 Platelet mean volume (Bld) [Entitic vol] 9.4 fL 6.2-12.0 [facility] Platelet countOrdered By: Trip Iglesias on 10-02-2024 Platelets (Bld) [#/Vol] 452 10*3/uL High 150-450 [facility] Potassium measurement (mass/ volume)Ordered By: Nenita Iglesias on 10-02-2024 Potassium (Unsp spec) [Mass/Vol] 3.5 mmol/L 3.3-5.1 [facility] RBC Auto (Bld) [#/Vol]Ordere d By: Nenita Iglesias on 10-02-2024 RBC (Bld) [#/Vol] 3.04 10*6/uL Low 4.2-5.4 [facility] Serum creatinine measurement (mass/volume)Ordered By: Nenita Iglesias on 10-02-2024 Creatinine [Mass/Vol] 0.63 mg/dL Low 0.70-1.20 [facility] Serum glucose measurement (m ass/volume)Ordered By: Nenita Iglesias on 10-02-2024 Glucose [Mass/Vol] 91 mg/dL 70-99 [facility] Serum or plasma calcium guy urement (mass/volume)Ordered By: Nenita Iglesias on 10-02-2024 Calcium [Mass/Vol] 8.9 mg/dL 7.6-11.0 [facility] Serum or plasma urea nitroge n measurement (mass/volume)Ordered By: Nenita Iglesias on 10-02-2024 Urea nitrogen [Mass/Vol] 12 mg/dL 4-19 [facility] Sodium levelOrdered By: Erickson Iglesias on 10-02-2024 Sodium [Moles/Vol] 140 mmol/L 133-145 [facility] TSH DL <= 0.005 mIU/L QnOrde red By: Nenita Iglesias on 10-02-2024 TSH Qn 9.380 uIU/mL High 0.300-4.200 [facility] Thyroid Stim Hormone (TSH)on 10-02-2024 TSH 9.380 uIU/mL High 0.300-4.200 [facility] Comment on above: Order Comment: 102.1 Performed By: #### L 501.5200, [id number] #### [facility] Laboratory [address] [place], [place], [address] Vitamin B12on 10-02-2024 Cobalamin (Vitamin B12) [Mass/Vol] 1107 pg/mL High 180-914 [facility] Comment on above: Order Comment: 102.1 Performed By: #### L 501.5200, [id number] #### [facility] Laboratory [address] [place], [address] Vitamin B12 ser/plasOrdered By: Nenita Iglesias on 10-02-2024 Cobalamin (Vitamin B12) [Mass/Vol] 1107 pg/mL High 180-914 [facility] Vitamin D,25 Hydroxyon 10-02 Vitamin D 25-OH 16.6 ng/mL Low 30-100 [facility] Comment on above: Order Comment: 102.1 Result Comment: Roxie min D Status Deficiency: <20 ng/mL (50nmol/L) Insufficiency: 20-30 ng/mL (50-75 nmol/L) Sufficiency: 30-100 ng/mL (75-250 nmol/L) Toxicity: >100 ng/mL (>250 nmol/L) Performed By: #### L 501.5200, [id number] #### [facility] Laboratory [address] [place], [address] White blood cell (WBC) count Ordered By: Nenita Iglesias on 10-02-2024 WBC (Bld) [#/Vol] 7.2 10*3/uL 4.4-11.0 [facility] Anion gap in Serum or Plasma Ordered By: Nenita Iglesias on 09-27-2024 Anion gap [Moles/Vol] 10 mmol/L 08-02 [facility] BUN/creatinine ratioOrdered By: Nenita Iglesias on 09-27-2024 Urea nitrogen/Creatinine [Mass ratio] 12.5 mg/mg 01-07 [facility] Basic Metabolic Profile (BMP )on 09-27-2024 BUN/CRE 12.5 RATIO Normal 01-07 [facility] Comment on above: Order Comment: 102.1 Performed By: #### L 100.0500, L500.2500 #### [facility] Laboratory [address] [place], [address] Calcium [Mass/Vol] 8.5 mg/dL Normal 7.6-11.0 [facility] Comment on above: Order Comment: 102.1 Performed By: #### L 100.0500, [id number] #### [facility] Laboratory [address], [address] Chloride [Moles/Vol] 107 mmol/L Normal 98-[address] [facility] Comment on above: Order Comment: 102.1 Performed By: #### L 100.0500, L500.2500 #### [facility] Laboratory [address], [address] CO2 [Moles/Vol] 24.0 mmol/L Normal 21.0-32.0 [facility] Comment on above: Order Comment: 102.1 Performed By: #### L 100.0500, L500.2500 #### [facility] Laboratory [address] [place], [address] Creatinine [Mass/Vol] 0.60 mg/dL Low 0.70-1.20 [facility] Comment on above: Order Comment: 102.1 Performed By: #### L 100.0500, L500.2500 #### [facility] Laboratory [address] [place], [address] GAP 10 Normal 5-15 [facility] Comment on above: Order Comment: 102.1 Performed By: #### L 100.0500, L500.2500 #### [facility] Laboratory [address] [place], [address] GFR/1.73 sq M.predicted among non-blacks MDRD (S/P/Bld) [Vol rate/Area] 91 mL/min/{1.73_m2} Normal >60 [facility] Comment on above: Order Comment: 102.1 Result Comment: mL/m in/1.73m2 CKD-EPI Creatinine Equation (2020) Performed By: #### L 100.0500, L500.2500 #### [facility] Laboratory [address] [place], [address] Glucose [Mass/Vol] 95 mg/dL Normal 70-99 [facility] Comment on above: Order Comment: 102.1 Performed By: #### L 100.0500, L500.2500 #### [facility] Laboratory [address] [place], [address] Potassium [Moles/Vol] 3.6 mmol/L Normal 3.3-5.1 [facility] Comment on above: Order Comment: 102.1 Performed By: #### L 100.0500, L500.2500 #### [facility] Laboratory [address] [place], [address] Sodium [Moles/Vol] 141 mmol/L Normal 133-145 [facility] Comment on above: Order Comment: 102.1 Performed By: #### L 100.0500, L500.2500 #### [facility] Laboratory [address] [place], [address] Urea nitrogen [Mass/Vol] 7 mg/dL Normal 4-19 [facility] Comment on above: Order Comment: 102.1 Performed By: #### L 100.0500, L500.2500 #### [facility] Laboratory [address] [place], [address] CBC-Complete Blood Cnt No Di ffon 09-27-2024 Erythrocyte distribution width (RBC) [Ratio] 13.8 % Normal 11.6-14.6 [facility] Comment on above: Order Comment: 102.1 Performed By: #### L 100.0500, L500.2500 #### [facility] Laboratory [address] [place], [address] Hematocrit (Bld) [Volume fraction] 25.0 % Low 37-47 [facility] Comment on above: Order Comment: 102.1 Performed By: #### L 100.0500, L500.2500 #### [facility] Laboratory [address] [place], [address] Hemoglobin (Bld) [Mass/Vol] 8.2 g/dL Low 12.0-15.0 [facility] Comment on above: Order Comment: 102.1 Performed By: #### L 100.0500, L500.2500 #### [facility] Laboratory [address] [place], [address] MCH (RBC) [Entitic mass] 29.6 pg Normal 27.0-32.0 [facility] Comment on above: Order Comment: 102.1 Performed By: #### L 100.0500, L500.2500 #### [facility] Laboratory [address] [place], [address] MCHC (RBC) [Mass/Vol] 32.8 g/dL Normal 32-36 [facility] Comment on above: Order Comment: 102.1 Performed By: #### L 100.0500, L500.2500 #### [facility] Laboratory [address] [place], [address] MCV (RBC) [Entitic vol] 90.3 fL Normal 81-99 [facility] Comment on above: Order Comment: 102.1 Performed By: #### L 100.0500, L500.2500 #### [facility] Laboratory [address] [place], [address] Platelet mean volume (Bld) [Entitic vol] 10.5 fL Normal 6.2-12.0 [facility] Comment on above: Order Comment: 102.1 Performed By: #### L 100.0500, L500.2500 #### [facility] Laboratory [address] [place], [address] Platelets (Bld) [#/Vol] 246 10*3/uL Normal 150-450 [facility] Comment on above: Order Comment: 102.1 Performed By: #### L 100.0500, L500.2500 #### [facility] Laboratory [address] [place], [address] RBC (Bld) [#/Vol] 2.77 10*6/uL Low 4.2-5.4 [facility] Comment on above: Order Comment: 102.1 Performed By: #### L 100.0500, L500.2500 #### [facility] Laboratory [address] [place], [address] RDW SD 45.6 fl High 35.1-43.9 [facility] Comment on above: Order Comment: 102.1 Performed By: #### L 100.0500, L500.2500 #### [facility] Laboratory [address] [place], [address] WBC (Bld) [#/Vol] 7.0 10*3/uL Normal 4.4-11.0 [facility] Comment on above: Order Comment: 102.1 Performed By: #### L 100.0500, L500.2500 #### [facility] Laboratory [address] [place], [place], [id number] Carbon dioxide, total [Moles /volume] in Central venous bloodOrdered By: Nenita Iglesias on 09-27-2024 CO2 [Moles/Vol] 24.0 mmol/L 21.0-32.0 [facility] Chloride assayOrdered By: Trip Iglesias on 09-27-2024 Chloride [Moles/Vol] 107 mmol/L 98-[address] [facility] Erythrocyte distribution wid th ratioOrdered By: Nenita Iglesias on 09-27-2024 Erythrocyte distribution width (RBC) [Ratio] 13.8 % 11.6-14.6 [facility] Erythrocyte distribution wid th standard deviationOrdered By: Nenita Iglesias on 09-27-2024 Erythrocyte distribution width (RBC) [Ratio] 45.6 fl High 35.1-43.9 [facility] Glomerular filtration rate ( GFR) estimation/1.73 sq m using serum, plasma, or whole bOrdered By: Nenita Iglesias on 09-27-2024 GFR/1.73 sq M.predicted among non-blacks MDRD (S/P/Bld) [Vol rate/Area] 91 mL/min/{1.73_m2} >60 [facility] Comment on above: mL/min/1.73m2 CKD-EP I Creatinine Equation (2020) Hematocrit Auto (Bld) [Volum e fraction]Ordered By: Nenita Iglesias on 09-27-2024 Hematocrit (Bld) [Volume fraction] 25.0 % Low 37-47 [facility] Hemoglobin measurementOrdere d By: Nenita Iglesias on 09-27-2024 Hemoglobin (Bld) [Mass/Vol] 8.2 g/dL Low 12.0-15.0 [facility] MCV (mean corpuscular volume ) determinationOrdered By: Nenita Iglesias on 09-27-2024 MCV (RBC) [Entitic vol] 90.3 fL 81-99 [facility] Mean corpuscular hemoglobin (MCH) determinationOrdered By: Nenita Iglesias on 09-27-2024 MCH (RBC) [Entitic mass] 29.6 pg 27.0-32.0 [facility] Mean corpuscular hemoglobin concentration (MCHC) determinationOrdered By: Nenita Iglesias on 09-27-2024 MCHC (RBC) [Mass/Vol] 32.8 g/dL 32-36 [facility] Mean platelet volume determi nationOrdered By: Nenita Iglesias on 09-27-2024 Platelet mean volume (Bld) [Entitic vol] 10.5 fL 6.2-12.0 [facility] Platelet countOrdered By: Trip Iglesias on 09-27-2024 Platelets (Bld) [#/Vol] 246 10*3/uL 150-450 [facility] Potassium measurement (mass/ volume)Ordered By: Nenita Iglesias on 09-27-2024 Potassium (Unsp spec) [Mass/Vol] 3.6 mmol/L 3.3-5.1 [facility] RBC Auto (Bld) [#/Vol]Ordere d By: Nenita Iglesias on 09-27-2024 RBC (Bld) [#/Vol] 2.77 10*6/uL Low 4.2-5.4 [facility] Serum creatinine measurement (mass/volume)Ordered By: Nenita Iglesias on 09-27-2024 Creatinine [Mass/Vol] 0.60 mg/dL Low 0.70-1.20 [facility] Serum glucose measurement (m ass/volume)Ordered By: Nenita Iglesias on 09-27-2024 Glucose [Mass/Vol] 95 mg/dL 70-99 [facility] Serum or plasma calcium guy urement (mass/volume)Ordered By: Nenita Iglesias on 09-27-2024 Calcium [Mass/Vol] 8.5 mg/dL 7.6-11.0 [facility] Serum or plasma urea nitroge n measurement (mass/volume)Ordered By: Nenita Iglesias on 09-27-2024 Urea nitrogen [Mass/Vol] 7 mg/dL 4-19 [facility] Sodium levelOrdered By: Erickson Iglesias on 09-27-2024 Sodium [Moles/Vol] 141 mmol/L 133-145 [facility] White blood cell (WBC) count Ordered By: Nenita Iglesias on 09-27-2024 WBC (Bld) [#/Vol] 7.0 10*3/uL 4.4-11.0 [facility] HH, Hemoglobin AND Hematocri ton 09-26-2024 Hematocrit (Bld) [Volume fraction] 23.2 % Low 37-47 [facility] Comment on above: Performed By: #### L 100.0600 ####[facility] [id number] [place], [place], [phone] Hemoglobin (Bld) [Mass/Vol] 7.5 g/dL Low 12.0-15.0 [facility] Comment on above: Performed By: #### L 100.0600 ####[facility] [id number] [place], [address] Hematocrit Auto (Bld) [Volum e fraction]Ordered By: Gage Hays on 09-26-2024 Hematocrit (Bld) [Volume fraction] 23.2 % Low 37-47 [facility] Hemoglobin measurementOrdere d By: Gage Hays on 09-26-2024 Hemoglobin (Bld) [Mass/Vol] 7.5 g/dL Low 12.0-15.0 [facility] Urine Cultureon 09-26-2024 [facility] Comments: on same U/ A sample today Escherichia coli [place] Count >100,000 Escherichia coli: REACTION Ampicillin Islt ASTRID 16 Ampicillin+Sulbac Islt ASTRID 4 S Cefepime Islt ASTRID <=0.12 S cefTRIAXone Islt ASTRID <=0.25 S Ciprofloxacin Islt ASTRID <=0.06 S B-Lactamase Extended Susc Islt NEG Gentamicin Islt ASTRID <=1 S levoFLOXacin Islt ASTRID <=0.12 S Meropenem Islt ASTRID <=0.25 S Nitrofurantoin Islt ASTRID <=16 S Pip+Tazo Islt ASTRID <=4 S TMP SMX Islt ASTRID <=20 S Normal [facility] Comment on above: Performed By: #### M 100.2200 ####[facility] [id number] [place], [place], [phone] Absolute lymphocyte countOrd ered By: Vic Wong on 09-24-2024 Lymphocytes Auto (Unsp spec) [#/Vol] 1.38 10*3/uL 0.83-4.51 [facility] Absolute neutrophil countOrd ered By: Vic Wong on 09-24-2024 Neutrophils (Bld) [#/Vol] 4.6 10*3/uL 2.0-7.7 [facility] Activated partial thrombopla stin time (aPTT) in platelet poor plasma by coagulation aOrdered By: Pedro Hewitt on 09-24-2024 aPTT Coag (PPP) [Time] 36.0 s 24.1-36.2 [facility] Anion gap in Serum or Plasma Ordered By: Vic Wong on 09-24-2024 Anion gap [Moles/Vol] 9 mmol/L 5-15 [facility] Automated lymphocyte count a s percentage of total leukocytesOrdered By: Vic Wong on 09-24-2024 Lymphocytes/100 WBC Auto (Unsp spec) 20.8 % 19-41 [facility] BUN/creatinine ratioOrdered By: Vic Wong on 09-24-2024 Urea nitrogen/Creatinine [Mass ratio] 15.9 mg/mg 10-20 [facility] Basophil percentageOrdered B y: Vic Wong on 09-24-2024 Basophils/100 WBC (Bld) 0.3 % 0-1 [facility] Bilirubin, totalOrdered By: Vic Wong on 09-24-2024 Bilirubin [Mass/Vol] 0.70 mg/dL 0.00-1.[address] [facility] CBC W/Diff, Automatedon Absolute Lymph 1.38 X10 3/uL Normal 0.83-4.51 [facility] Comment on above: Performed By: #### L 501.5200, L501.9520 #### [facility] Laboratory [address] [place], [place], [id number] Absolute Neut 4.6 X10 3/uL Normal 2.0-7.7 [facility] Comment on above: Performed By: #### L 501.5200, L501.9520 #### [facility] Laboratory [address] [place], [address] Basophils/100 WBC (Bld) 0.3 % Normal 0-1 [facility] Comment on above: Performed By: #### L 501.5200, L501.9520 #### [facility] Laboratory [address] [place], [address] Eosinophils/100 WBC (Bld) 1.7 % Normal 0-5 [facility] Comment on above: Performed By: #### L 501.5200, L501.9520 #### [facility] Laboratory [address] [place], [address] Erythrocyte distribution width (RBC) [Ratio] 13.7 % Normal 11.6-14.6 [facility] Comment on above: Performed By: #### L 501.5200, L501.9520 #### [facility] Laboratory [address] [place], [address] Hematocrit (Bld) [Volume fraction] 30.4 % Low 37-47 [facility] Comment on above: Performed By: #### L 501.5200, L501.9520 #### [facility] Laboratory [address] [place], [address] Hemoglobin (Bld) [Mass/Vol] 9.9 g/dL Low 12.0-15.0 [facility] Comment on above: Performed By: #### L 501.5200, L501.9520 #### [facility] Laboratory [address] [place], [address] IG% 0.300 Normal 0.0-0.9 [facility] Comment on above: Result Comment: IG% - Immature Granulocytes (promyelocytes, myelocytes and metamyelocytes) > 1% indicates that a LEFT SHIFT is Present. Performed By: #### L 501.5200, L501.9520 #### [facility] Laboratory [address] [place], [address] Lymphocytes/100 WBC (Bld) 20.8 % Normal 19-41 [facility] Comment on above: Performed By: #### L 501.5200, L501.9520 #### [facility] Laboratory [address] [place], [address] MCH (RBC) [Entitic mass] 29.3 pg Normal 27.0-32.0 [facility] Comment on above: Performed By: #### L 501.5200, L501.9520 #### [facility] Laboratory [address] [place], [address] MCHC (RBC) [Mass/Vol] 32.6 g/dL Normal 32-36 [facility] Comment on above: Performed By: #### L 501.5200, L501.9520 #### [facility] Laboratory [address] [place], [address] MCV (RBC) [Entitic vol] 89.9 fL Normal 81-99 [facility] Comment on above: Performed By: #### L 501.5200, L501.9520 #### [facility] Laboratory [address] [place], [address] Monocytes/100 WBC (Bld) 8.2 % Normal 0-10 [facility] Comment on above: Performed By: #### L 501.5200, L501.9520 #### [facility] Laboratory [address] [place], [address] Neutrophils/100 WBC (Bld) 68.7 % Normal 47-70 [facility] Comment on above: Performed By: #### L 501.5200, L501.9520 #### [facility] Laboratory [address] [place], [address] Nucleated RBC (Bld) [#/Vol] 0 10*3/uL Normal 0-5 [facility] Comment on above: Performed By: #### L 501.5200, L501.9520 #### [facility] Laboratory [address] [place], [address] Platelet mean volume (Bld) [Entitic vol] 9.7 fL Normal 6.2-12.0 [facility] Comment on above: Performed By: #### L 501.5200, L501.9520 #### [facility] Laboratory [address] [place], [address] Platelets (Bld) [#/Vol] 207 10*3/uL Normal 150-450 [facility] Comment on above: Performed By: #### L 501.5200, L501.9520 #### [facility] Laboratory [address] [place], [address] RBC (Bld) [#/Vol] 3.38 10*6/uL Low 4.2-5.4 [facility] Comment on above: Performed By: #### L 501.5200, L501.9520 #### [facility] Laboratory [address] [place], [address] RDW SD 45.1 fl High 35.1-43.9 [facility] Comment on above: Performed By: #### L 501.5200, L501.9520 #### [facility] Laboratory [address] [place], [address] WBC (Bld) [#/Vol] 6.6 10*3/uL Normal 4.4-11.0 [facility] Comment on above: Performed By: #### L 501.5200, L501.9520 #### [facility] Laboratory [address] [place], [address] Carbon dioxide, total [Moles /volume] in Central venous bloodOrdered By: Vic Wong on 09-24-2024 CO2 [Moles/Vol] 21.2 mmol/L 21.0-32.0 [facility] Chloride assayOrdered By: Miguel Ángel Wong on 09-24-2024 Chloride [Moles/Vol] 106 mmol/L 98-[address] [facility] Comprehensive Metabolic Prof ilon 09-24-2024 Albumin [Mass/Vol] 3.6 g/dL Normal 3.4-4.8 [facility] Comment on above: Performed By: #### L 501.5200, L501.9520 #### [facility] Laboratory [address] [place], [address] Albumin/Globulin [Mass ratio] 1.6 {ratio} Normal 0.9-2.4 [facility] Comment on above: Performed By: #### L 501.5200, L501.9520 #### [facility] Laboratory [address] [place], [address] ALK PHOS 115 U/L High 35-104 [facility] Comment on above: Performed By: #### L 501.5200, L501.9520 #### [facility] Laboratory [address] [place], [address] ALT [Catalytic activity/Vol] 21 U/L Normal <=34 [facility] Comment on above: Performed By: #### L 501.5200, L501.9520 #### [facility] Laboratory [address] [place], [address] AST [Catalytic activity/Vol] 25 U/L Normal <=31 [facility] Comment on above: Performed By: #### L 501.5200, L501.9520 #### [facility] Laboratory [address] [place], [address] Bilirubin [Mass/Vol] 0.70 mg/dL Normal 0.00-1.[address] [facility] Comment on above: Performed By: #### L 501.5200, L501.9520 #### [facility] Laboratory [address] [place], [address] BUN/CRE 15.9 RATIO Normal 10-20 [facility] Comment on above: Performed By: #### L 501.5200, L501.9520 #### [facility] Laboratory [address] [place], [address] Calcium [Mass/Vol] 8.9 mg/dL Normal 7.6-11.0 [facility] Comment on above: Performed By: #### L 501.5200, L501.9520 #### [facility] Laboratory [address] [place], [address] Chloride [Moles/Vol] 106 mmol/L Normal 98-[address] [facility] Comment on above: Performed By: #### L 501.5200, L501.9520 #### [facility] Laboratory [address] [place], [address] CO2 [Moles/Vol] 21.2 mmol/L Normal 21.0-32.0 [facility] Comment on above: Performed By: #### L 501.5200, L501.9520 #### [facility] Laboratory [address] [place], [address] Creatinine [Mass/Vol] 0.77 mg/dL Normal 0.70-1.20 [facility] Comment on above: Performed By: #### L 501.5200, L501.9520 #### [facility] Laboratory [address] [place], [address] ECRCL 58.17 ml/min Normal 50-250 [facility] Comment on above: Performed By: #### L 501.5200, L501.9520 #### [facility] Laboratory [address] [place], [address] GAP 9 Normal 5-15 [facility] Comment on above: Performed By: #### L 501.5200, L501.9520 #### [facility] Laboratory [address] [place], [address] GFR/1.73 sq M.predicted among non-blacks MDRD (S/P/Bld) [Vol rate/Area] 78 mL/min/{1.73_m2} Normal >60 [facility] Comment on above: Result Comment: mL/m in/1.73m2 CKD-EPI Creatinine Equation (2020) Performed By: #### L 501.5200, L501.9520 #### [facility] Laboratory [address] [place], [address] Globulin (S) [Mass/Vol] 2.2 g/dL Normal 2.2-4.2 [facility] Comment on above: Performed By: #### L 501.5200, L501.9520 #### [facility] Laboratory [address] [place], [address] Glucose [Mass/Vol] 111 mg/dL High 70-99 [facility] Comment on above: Performed By: #### L 501.5200, L501.9520 #### [facility] Laboratory [address] [place], [address] Potassium [Moles/Vol] 3.7 mmol/L Normal 3.3-5.1 [facility] Comment on above: Performed By: #### L 501.5200, L501.9520 #### [facility] Laboratory [address] [place], [address] Sodium [Moles/Vol] 136 mmol/L Normal 133-145 [facility] Comment on above: Performed By: #### L 501.5200, L501.9520 #### [facility] Laboratory [address] [place], [address] T PROT 5.9 g/dL Normal 5.9-8.4 [facility] Comment on above: Performed By: #### L 501.5200, L501.9520 #### [facility] Laboratory [address] [place], [address] Urea nitrogen [Mass/Vol] 12 mg/dL Normal 4-19 [facility] Comment on above: Performed By: #### L 501.5200, L501.9520 #### [facility] Laboratory [address] [place], [address] Electrocardiogram reportOrde red By: Alli Montgomery on 09-24-2024 EKG study [facility] Cardiovascular Services [address] [place] [address] 12 Lead EKG 09/23/24 0108 MR#: [id number] Acct: [id number] Name: JAEL HUGGINS Rep #:[id number] : 1945 79 From: Alli Montgomery MD Attending Dr: Dr. Gage Hays DO Status: ADM IN Ordering Dr: Tommy Huff DO Date: 0 09/23/24 [place] [facility] [place] Sex: F C Admitted: 09/23/24 Test Reason : HIP PAIN Blood Pressure : */* mmHG Vent. Rate : 81 BPM Atrial Rate : 81 BPM P-R Int : 178 ms QRS Dur : 78 ms QT Int : 384 ms P-R-T Axes : 72 9 76 degrees QTcB Int : 446 ms Normal sinus rhythm Normal ECG Confirmed by KAYLEE WARE, ALLI ([id number]), material expeditor LEANNE MURRAY ([id number]) on 09/24/2024 10:57:46 AM Referred By: Confirmed By: ALLI MONTGOMERY MD 09/24/24 1057 Date _ Alli Montgomery MD CC: Dr. Gage Hays DO; Dr. Lucio Ayoub MD; Dr. Tommy Huff DO ~ Signed [facility] Other Phone: Eosinophil percentageOrdered By: Vic Wong on 09-24-2024 Eosinophils/100 WBC (Bld) 1.7 % 0-5 [facility] Erythrocyte distribution wid th ratioOrdered By: Vic Wong on 09-24-2024 Erythrocyte distribution width (RBC) [Ratio] 13.7 % 11.6-14.6 [facility] Erythrocyte distribution wid th standard deviationOrdered By: Vic Wong on 09-24-2024 Erythrocyte distribution width (RBC) [Ratio] 45.1 fl High 35.1-43.9 [facility] Glomerular filtration rate ( GFR) estimation/1.73 sq m using serum, plasma, or whole bOrdered By: Vic Wong on 09-24-2024 GFR/1.73 sq M.predicted among non-blacks MDRD (S/P/Bld) [Vol rate/Area] 78 mL/min/{1.73_m2} >60 [facility] Comment on above: mL/min/1.73m2 CKD-EP I Creatinine Equation (2020) Hip Min 2 Views (Portable)on 09-24-2024 Hip Min 2 Views (Portable) [facility] Imaging Services [address] [place], [place] [address] Hip Min 2 Views (Portable) MR#: [id number] Acct: [id number] Name: JAEL HUGGINS Rep #: [id number] : 1945 F 79 From: Vic Joseph PCP: Dr. Lucio Ayoub MD Status: ADM IN Study: Hip Min 2 Views (Portable) Date of Exam: 09/24 Exam# [id number] Ordering Dr: Braxton Salas DO PROCEDURE: HIP MIN 2 VIEWS (PORTABLE); O.R. FLUORO FOR C-ARM 09/24/2024 REASON FOR EXAM: TROCHANTERIC FIXATION; HIP FIXATION TECHNIQUE: HIP MIN 2 VIEWS (PORTABLE); O.R. FLUORO FOR C-ARM Fluoroscopy time: 95.9 seconds. Dose: 14.53 mGy. COMPARISON: Left hip and pelvis of 09/23/2024 RAD/Hip Min 2 Views (Portable) IMPRESSION: Intraoperative fluoroscopy was performed for left femoral fracture fixation including placement of an intramedullary nail with proximal and distal interlocking screws. 9 fluoroscopic images were also obtained. Reading Location: [address] CC: Dr. Braxton Salas DO; Dr. Lucio Ayoub MD Health And Safety Instructor: Signed Normal [facility] Immature granulocytes/100 WB C Auto (Bld)Ordered By: Vic Wong on 09-24-2024 Immature granulocytes/100 WBC (Bld) 0.300 % 0.0-0.9 [facility] Comment on above: IG% - Immature Granu locytes (promyelocytes, myelocytes and metamyelocytes) > 1% indicates that a LEFT SHIFT is Present. Laboratory - Chemistry and C hemistry - challengeOrdered By: Vic Wong on 09-24-2024 AST [Catalytic activity/Vol] 25 U/L <32 [facility] MCV (mean corpuscular volume ) determinationOrdered By: Vic Wong on 09-24-2024 MCV (RBC) [Entitic vol] 89.9 fL 81-99 [facility] MR/POSTOP.ANEon 09-24-2024 MR/POSTOP.ANE [facility] Medical Records Department [address] [place] [address] Anesthesia Postop Eval I 09/24/24 1634 MR#: [id number] Acct: [id number] Name: JAEL HUGGINS Rep #: [id number] : 1945 79 From: Dave Weber CRNA PCP: Dr. Lucio Ayoub MD Status:ADM IN Y Race: C Location: [place] [address] Anesthesia: Postop Eval I Current Vital Signs Temperature: 98.4 F Pulse Rate: 89 Blood Pressure: 141/67 Respiratory Rate: 12 Pulse Ox: 95 Oxygen Delivery Method: Room Air Assessment Airway patent: Yes Spontaneous unlabored respirations: Yes Mental status: Asleep nausea: No Vomiting: No Anesthesia Complication: No Fluid Hydration Crystalloid volume administer (ml): 700 Total IV fluid infused: 700 Progress Note Anesthesia document: Postop Eval 1 completed: Yes 09/24/24 1635 Date Dave Weber INFRASTRUCTURE CONSULTANT Cosigner Signature: Date CC: Signed Normal [facility] MR/[id number] 09-24-2024 MR/POSTOPAN2 [facility] Medical Records Department [address] [place] [address] Anesthesia Postop Eval II 09/24/241950 MR#: [id number] Acct: [id number] Name: JAEL HUGGINS Rep #: [id number] : 1945 79 From: Pedro Hewitt MD PCP: Dr. Lucio Ayoub MD Status:ADM IN Y Race: C [place] [facility] [place] Anesthesia Postop Eval I Sum Postop Eval Completion status Anesthesia document: Postop Eval 1 completed: Yes Anesthesia Postop Eval I Summary Anesthesia Postop Eval I Summary: Anesthesia Postop Eval I: Assessment Summary Airway patent Yes 09/24/24 16:35 INFRASTRUCTURE CONSULTANT.APAT Spontaneous unlabored Yes 09/24/24 16:35 INFRASTRUCTURE CONSULTANT.APAT respirations Mental status Asleep 09/24/24 16:35 INFRASTRUCTURE CONSULTANT.APAT nausea No 09/24/24 16:35 INFRASTRUCTURE CONSULTANT.APAT Vomiting No 09/24/24 16:35 INFRASTRUCTURE CONSULTANT.APAT Anesthesia Postop Eval I: Fluid Summary Crystalloid volume administer 700 09/24/24 16:35 INFRASTRUCTURE CONSULTANT.APAT (ml) Colloids volume administered ( ml) Blood Product volume administered (ml) Total IV fluid infused 700 09/24/24 16:35 INFRASTRUCTURE CONSULTANT.APAT Anesthesia Postop Eval I: Summary Notes Anesthesia Complication No 09/24/24 16:35 INFRASTRUCTURE CONSULTANT.APAT Anesthesia Complication Comment: Post-operative progress note Anesthesia: Postop Eval II Evaluation Mental status: Awake Pain Level: 2 nausea: No Vomiting: No 09/24/241950 Date Pedro Hewitt MD Cosigner Signature: Date CC: Signed Normal [facility] Mean corpuscular hemoglobin (MCH) determinationOrdered By: Vic Wong on 09-24-2024 MCH (RBC) [Entitic mass] 29.3 pg 27.0-32.0 [facility] Mean corpuscular hemoglobin concentration (MCHC) determinationOrdered By: Vic Wong on 09-24-2024 MCHC (RBC) [Mass/Vol] 32.6 g/dL 32-36 [facility] Mean platelet volume determi nationOrdered By: Vic Wong on 09-24-2024 Platelet mean volume (Bld) [Entitic vol] 9.7 fL 6.2-12.0 [facility] Monocyte percentageOrdered B y: Vic Wong on 09-24-2024 Monocytes/100 WBC (Bld) 8.2 % 0-10 [facility] Neutrophil percentageOrdered By: Vic Wong on 09-24-2024 Neutrophils/100 WBC (Bld) 68.7 % 47-70 [facility] Nucleated red blood cell per centageOrdered By: Vic Wong on 09-24-2024 Nucleated RBC/100 WBC (Bld) [Ratio] 0 % 0-5 [facility] O.R. Fluoro for C-Jordi O.R. Fluoro for C-Arm [facility] Imaging Services [address] [place] [id number] O.R. Fluoro for C-Arm MR#: [id number] Acct: [id number] Name: JAEL HUGGINS Rep #: [id number] : 1945 F 79 From: Vic Joseph PCP: Dr. Lucio Ayoub MD Status: ADM IN Study: O.R. Fluoro for C-Arm Date of Exam: 09/24/24 Exam# [id number] Ordering Dr: Braxton Salas DO PROCEDURE: HIP MIN 2 VIEWS (PORTABLE); O.R. FLUORO FOR C-ARM 09/24/2024 REASON FOR EXAM: TROCHANTERIC FIXATION; HIP FIXATION TECHNIQUE: HIP MIN 2 VIEWS (PORTABLE); O.R. FLUORO FOR C-ARM Fluoroscopy time: 95.9 seconds. Dose: 14.53 mGy. COMPARISON: Left hip and pelvis of 09/23/2024 RAD/O.R. Fluoro for C-Arm IMPRESSION: Intraoperative fluoroscopy was performed for left femoral fracture fixation including placement of an intramedullary nail with proximal and distal interlocking screws. 9 fluoroscopic images were also obtained. Reading Location: [address] CC: Dr. Braxton Salas DO; Dr. Lucio Ayoub MD Health And Safety Instructor: Signed Normal [facility] Operative Reporton Operative Report [facility] Medical Records Department [address] [place] [address] Operative Report 09/24/24 1637 MR#: [id number] Acct: [id number] Name: JAEL HUGGINS Rep #: [id number] : 1945 79 From: Braxton Salas DO PCP: Dr. Lucio Ayoub MD Status:ADM IN Location: [address] Operative Report (Standard) Operative Information Date of Procedure: 09/24/24 Pre-Operative Diagnosis: Left hip intertrochanteric femur fracture with comminution Post-Operative Diagnosis: Same Surgery/Procedure Performed: Cephalomedullary fixation left femur workplace trainer and assessor: No Type of Anesthesia: General RN Documented Start/Stop Times: Operation Date: 09/24/24 14:30 Case Time Into Pre-Op 09/24/24 13:30 Out of Pre-Op 09/24/24 14:32 Anesthesia Start 09/24/24 14:37 Into Room 09/24/24 14:37 Procedure Start 09/24/24 15:09 Procedure End 09/24/24 16:22 Anesthesia End 09/24/24 16:28 Out of Room 09/24/24 16:28 Procedure Start Time: 15:09 Procedure Stop Time: 16:22 Select all DRAINS/GRAFTS/IMPLANT S that apply: None Estimated Blood Loss: 25 Specimen collected: No Description of surgery: Preoperative diagnosis: [Left] hip [intertrochanteric femur fracture with reverse obliquity fracture pattern] Postoperative diagnosis: Same Procedure: Cephalo-medullary fixation [left] hip Implants: [employer]ynthes long nail [id number], [ 90] mm helical blade, 2 distal locking screws Anesthesia: General EBL: 25 Complications: None Condition: Stable to PACU Indication for procedure: 79-year-old female patient with ground-level fall sustaining injury to the left hip. fracture demonstrated [intertrochanteric femur fracture with reverse obliquity pattern], risk benefits and alternatives were reviewed including risk of bleeding infection nerve, artery, bone, tissue damage, blood clot, RSD need for further surgery and continued pain. Procedure: Patient met in the preoperative holding area once again the operative extremity was identified by both patient and physician and was marked. Patient was met by anesthesia and IV was started she was brought back to the to the operating room anesthesia was started. She was then positioned on the fracture table all bony prominences were well-padded. She was then positioned with adduction internal rotation and traction and fluoroscopy was brought in to ensure that an adequate reduction could be performed. Patient was then prepped and draped in usual sterile fashion and timeout was called to ensure the proper patient procedure and extremity were being contemplated. Fluoroscopy was used to gage the tip of the greater trochanter and a 3 fingerbreadth incision was made 2 finger breaths proximal to the tip of the greater trochanter. Was carried carried down through the skin and subcutaneous tissue as well as the gluteal fascia. A guide pin was then inserted through the tip of the greater trochanter directed towards the level of lesser trochanter this was checked in both AP and lateral projections. An opening reamer was performed. A guide pin was bent and placed down the femoral canal to the level of the superior patella then measured this and placed the corresponding length nail after flexible reamers were used to achieve cortical chatter and achieving 1.5 mm greater than the nail was chosen . following this was the insertion of the nail the appropriate height jig was used and a triple trocar sleeve was advanced to the skin and a stab incision was made at the trocar was inserted to the level of the bone and a guidepin was placed into the femoral neck and head checked on both AP and lateral projections. This was then measured and appropriately sized helical blade was inserted the nail was locked proximally to allow dynamic compression, the fracture was compressed and a locking screw was placed distally using perfect washoe technique. This was then drilled and measured under fluoroscopy and the appropriate size screw was inserted. Final AP and lateral projections were saved to the PACS system of the entire construct. the wounds were thoroughly irrigated the fascia was closed with #1 [id number] Vicryls followed by 2-0 Vicryl in the subcutaneous tissues followed by cedrick in the skin. 0.5% Marcaine with epinephrine was injected into the subcutaneous tissues dressing was applied form of Xeroform 4 x 4 ABD and Ioban tape. Patient tolerated procedure well there is no intraoperative complications she was brought back to the PACU in stable condition. Surgical Findings: Comminuted intertrochanteric femur fracture Complications Complications: No 09/24/24 3799 Cosigner Signature (if applicable): CC: Dr. Vic Marques DO; Dr. Braxton Salas DO; Dr. Jensen Cali MD; Dr. Lucio Ayoub MD Signed Normal [facility] Partial Thromboplast Timeon 09-24-2024 aPTT Coag (Bld) [Time] 36.0 s Normal 24.1-36.2 [facility] Comment on above: Performed By: #### L 501.5200, L501.9520 #### [facility] Laboratory [address] [place], [address] Platelet countOrdered By: Miguel Ángel Wong on 09-24-2024 Platelets (Bld) [#/Vol] 207 10*3/uL 150-450 [facility] Potassium measurement (mass/ volume)Ordered By: Vic Wong on 09-24-2024 Potassium (Unsp spec) [Mass/Vol] 3.7 mmol/L 3.3-5.1 [facility] RBC Auto (Bld) [#/Vol]Ordere d By: Vic Wong on 09-24-2024 RBC (Bld) [#/Vol] 3.38 10*6/uL Low 4.2-5.4 [facility] Serum creatinine measurement (mass/volume)Ordered By: Vic Wong on 09-24-2024 Creatinine [Mass/Vol] 0.77 mg/dL 0.70-1.20 [facility] Serum globulin measurementOr dered By: Vic Wong on 09-24-2024 Globulin (S) [Mass/Vol] 2.2 g/dL 2.2-4.2 [facility] Serum glucose measurement (m ass/volume)Ordered By: Vic Wong on 09-24-2024 Glucose [Mass/Vol] 111 mg/dL High 70-99 [facility] Serum or plasma alanine cervantes otransferase (ALT) measurementOrdered By: Vic Wong on 09-24-2024 ALT [Catalytic activity/Vol] 21 U/L <35 [facility] Serum or plasma albumin guy urement (mass/volume)Ordered By: Vic Wong on 09-24-2024 Albumin [Mass/Vol] 3.6 g/dL 3.4-4.8 [facility] Serum or plasma albumin/glob ulin mass ratioOrdered By: Vic Wong on 09-24-2024 Albumin/Globulin [Mass ratio] 1.6 {ratio} 0.9-2.4 [facility] Serum or plasma alkaline aakash sphatase measurementOrdered By: Vic Wong on 09-24-2024 ALP [Catalytic activity/Vol] 115 U/L High 35-104 [facility] Serum or plasma calcium guy urement (mass/volume)Ordered By: Vic Wong on 09-24-2024 Calcium [Mass/Vol] 8.9 mg/dL 7.6-11.0 [facility] Serum or plasma urea nitroge n measurement (mass/volume)Ordered By: Vic Wong on 09-24-2024 Urea nitrogen [Mass/Vol] 12 mg/dL 4-19 [facility] Sodium levelOrdered By: Dov Wong on 09-24-2024 Sodium [Moles/Vol] 136 mmol/L 133-145 [facility] TSH DL <= 0.005 mIU/L QnOrde red By: Pedro Hewitt on 09-24-2024 TSH Qn 4.120 uIU/mL 0.300-4.200 [facility] Thyroid Stim Hormone (TSH)on 09-24-2024 TSH 4.120 uIU/mL Normal 0.300-4.200 [facility] Comment on above: Performed By: #### L 501.5200, L501.9520 #### [facility] Laboratory [address], [address] Total proteinOrdered By: Reinier Wong on 09-24-2024 Protein [Mass/Vol] 5.9 g/dL 5.9-8.4 [facility] White blood cell (WBC) count Ordered By: Vic Wong on 09-24-2024 WBC (Bld) [#/Vol] 6.6 10*3/uL 4.4-11.0 [facility] 12 Lead EKGon 09-23-2024 12 Lead EKG [facility] Cardiovascular Services [address] [place] [address] 12 Lead EKG 09/23/24 0108 MR#: [id number] Acct: [id number] Name: JAEL HUGGINS Rep #: [id number] : 1945 79 From: Alli Montgomery MD Attending Dr: Dr. Gage Hays DO Status: A DM IN Ordering Dr: Tommy Huff DO Date: 09/23/24 [place] [facility] [place] Sex: F C Admitted: 09/23/24 Test Reason : HIP PAIN Blood Pressure : */* mmHG Vent. Rate : 81 BPM Atrial Rate : 81 BPM P-R Int : 178 ms QRS Dur : 78 ms QT Int : 384 ms P-R-T Axes : 72 9 76 degrees QTcB Int : 446 ms Normal sinus rhythm Normal ECG Confirmed by KAYLEE WARE, ALLI ([id number]), material expeditor LEANNE MURRAY ([id number]) on 09/24/2024 10:57:46 AM Referred By: Confirmed By: ALLI MONTGOMERY MD 09/24/24 1057 Date Alli Montgomery MD CC: Dr. Gage Hays DO; Dr. Lucio Ayoub MD; Dr. Tommy Huff DO Signed Normal [facility] Anion gap in Serum or Plasma Ordered By: Tommy Huff on 09-23-2024 Anion gap [Moles/Vol] 10 mmol/L 5-15 [facility] BUN/creatinine ratioOrdered By: Tommy Huff on 09-23-2024 Urea nitrogen/Creatinine [Mass ratio] 18.5 mg/mg 10-20 [facility] Basic Metabolic Profile (BMP )on 09-23-2024 BUN/CRE 18.5 RATIO Normal 10-20 [facility] Comment on above: Performed By: #### L 501.5200, L501.9520 #### [facility] Laboratory [address] [place], [address] Calcium [Mass/Vol] 8.7 mg/dL Normal 7.6-11.0 [facility] Comment on above: Performed By: #### L 501.5200, L501.9520 #### [facility] Laboratory [address] [place], [address] Chloride [Moles/Vol] 109 mmol/L High 98-[address] [facility] Comment on above: Performed By: #### L 501.5200, L501.9520 #### [facility] Laboratory [address] [place], [address] CO2 [Moles/Vol] 20.2 mmol/L Low 21.0-32.0 [facility] Comment on above: Performed By: #### L 501.5200, L501.9520 #### [facility] Laboratory [address] [place], [address] Creatinine [Mass/Vol] 0.73 mg/dL Normal 0.70-1.20 [facility] Comment on above: Performed By: #### L 501.5200, L501.9520 #### [facility] Laboratory [address] [place], [address] ECRCL 58.39 ml/min Normal 50-250 [facility] Comment on above: Performed By: #### L 501.5200, L501.9520 #### [facility] Laboratory [address] [place], [address] GAP 10 Normal 5-15 [facility] Comment on above: Performed By: #### L 501.5200, L501.9520 #### [facility] Laboratory [address] [place], [address] GFR/1.73 sq M.predicted among non-blacks MDRD (S/P/Bld) [Vol rate/Area] 84 mL/min/{1.73_m2} Normal >60 [facility] Comment on above: Result Comment: mL/m in/1.73m2 CKD-EPI Creatinine Equation (2020) Performed By: #### L 501.5200, L501.9520 #### [facility] Laboratory [address] [place], [address] Glucose [Mass/Vol] 136 mg/dL High 70-99 [facility] Comment on above: Performed By: #### L 501.5200, L501.9520 #### [facility] Laboratory [address] [place], [address] Potassium [Moles/Vol] 3.7 mmol/L Normal 3.3-5.1 [facility] Comment on above: Performed By: #### L 501.5200, L501.9520 #### [facility] Laboratory [address] [place], [address] Sodium [Moles/Vol] 139 mmol/L Normal 133-145 [facility] Comment on above: Performed By: #### L 501.5200, L501.9520 #### [facility] Laboratory [address] [place], [address] Urea nitrogen [Mass/Vol] 14 mg/dL Normal 4-19 [facility] Comment on above: Performed By: #### L 501.5200, L501.9520 #### [facility] Laboratory [address] [place], [address] Bilirubin Test strip Ql (U)O rdered By: Vic Wong on 09-23-2024 Bilirubin Ql (U) Negative Negative [facility] CBC-Complete Blood Cnt No Di ffon 09-23-2024 Erythrocyte distribution width (RBC) [Ratio] 13.5 % Normal 11.6-14.6 [facility] Comment on above: Performed By: #### L 501.5200, L501.9520 #### [facility] Laboratory [address] [place], [address] Hematocrit (Bld) [Volume fraction] 34.6 % Low 37-47 [facility] Comment on above: Performed By: #### L 501.5200, L501.9520 #### [facility] Laboratory [address] [place], [address] Hemoglobin (Bld) [Mass/Vol] 11.3 g/dL Low 12.0-15.0 [facility] Comment on above: Performed By: #### L 501.5200, L501.9520 #### [facility] Laboratory [address] [place], [address] MCH (RBC) [Entitic mass] 29.4 pg Normal 27.0-32.0 [facility] Comment on above: Performed By: #### L 501.5200, L501.9520 #### [facility] Laboratory [address] [place], [address] MCHC (RBC) [Mass/Vol] 32.7 g/dL Normal 32-36 [facility] Comment on above: Performed By: #### L 501.5200, L501.9520 #### [facility] Laboratory [address] [place], [address] MCV (RBC) [Entitic vol] 89.9 fL Normal 81-99 [facility] Comment on above: Performed By: #### L 501.5200, L501.9520 #### [facility] Laboratory [address] [place], [address] Platelet mean volume (Bld) [Entitic vol] 9.7 fL Normal 6.2-12.0 [facility] Comment on above: Performed By: #### L 501.5200, L501.9520 #### [facility] Laboratory [address] [place], [address] Platelets (Bld) [#/Vol] 265 10*3/uL Normal 150-450 [facility] Comment on above: Performed By: #### L 501.5200, L501.9520 #### [facility] Laboratory [address] [place], [address] RBC (Bld) [#/Vol] 3.85 10*6/uL Low 4.2-5.4 [facility] Comment on above: Performed By: #### L 501.5200, L501.9520 #### [facility] Laboratory [address] [place], [address] RDW SD 44.6 fl High 35.1-43.9 [facility] Comment on above: Performed By: #### L 501.5200, L501.9520 #### [facility] Laboratory [address] [place], [address] WBC (Bld) [#/Vol] 9.9 10*3/uL Normal 4.4-11.0 [facility] Comment on above: Performed By: #### L 501.5200, L501.9520 #### [facility] Laboratory [address] [place], [address] Carbon dioxide, total [Moles /volume] in Central venous bloodOrdered By: Tommy Huff on 09-23-2024 CO2 [Moles/Vol] 20.2 mmol/L Low 21.0-32.0 [facility] Chest 1 View (Portable)on Chest 1 View (Portable) [facility] Imaging Services [address] [place] [address] Chest 1 View (Portable) MR#: [id number] Acct: [id number] Name: JAEL HUGGINS Rep #: [id number] : 1945 F 79 From: Pravin Reina MD PCP: Dr. Lucio Ayoub MD Status: REG ER Study: Chest 1 View (Portable) Date of Exam: 09/23/24 Exam# [id number] Ordering Dr: Tommy Huff DO PROCEDURE: CHEST 1 VIEW (PORTABLE) 09/23/2024 REASON FOR EXAM: PREOP TECHNIQUE: Frontal view of the chest. COMPARISON: 01/29/2022 FINDINGS: Rotated patient. Slight under aeration at the lung bases. Possible small posterior right effusion. No consolidation, or pneumothorax. RAD/Chest 1 View (Portable) IMPRESSION: Under aerated lung bases. Possible small right effusion. Reading Location: [place] [address] CC: Dr. Lucio Ayoub MD; Dr. Tommy Huff DO Health And Safety Instructor: Signed Normal [facility] Chloride assayOrdered By: Marcela Huff on 09-23-2024 Chloride [Moles/Vol] 109 mmol/L High 98-[address] [facility] Emergency Department Summary on 09-23-2024 Emergency Department Summary [facility] Medical Records Department [address] [place] [address] Emergency Department Summary 09/23/24 MR#: [id number] Acct: [id number] Name: JAEL HUGGINS Rep #: [id number] : 1945 79 From: Tommy Huff DO PCP: Dr. Lucio Ayoub MD Status:REG ER Location: ED HPI History of Present Illness Chief Complaint: [facility] Medical History Frontal dementia Contusion of right knee Strain of right knee Hemorrhoids Family history of breast cancer Thyroid disease Breast mass, right Abnormal mammogram of right breast Home Medications ???Medication ???Instructions ???Recorded ???Last Taken ???Type levothyroxine 75 mcg tablet 75 mcg PO DAILY THYROID 03/11/20 U nknown History pantoprazole 40 mg tablet,delayed 40 mg PO DAILY GERD 09/23/24 Unkn own History release Allergy/AdvReac Type Severity Reaction Status Date / Time No Known Allergies Allergy Verified 08/01/24 09:56 Family History Mother Breast cancer Sister Breast cancer Sister Lymphoma Surgical History History of right breast biopsy ( 03/2020) History of partial hysterectomy Social History household members: none Smoking Status: Never smoker second hand exposure: No alcohol intake: never substance use type: does not use EXAM Physical Exam Const Vital Signs: 09/23/24 00:28 09/23/24 02:28 09/23/24 03:00 Temperature 97.7 F L 97.5 F L Temperature Source Oral Pulse Rate 81 93 92 Respiratory Rate 19 H 18 16 Blood Pressure 155/63 H 156/71 H 143/69 H Blood Pressure Mean 93 99 93 Pulse Ox 99 94 98 Oxygen Delivery Method Room Air Room Air MDM MDM MDM Narrative Medical decision making narrative: HISTORY OF PRESENT ILLNESS: Chief complaint: Fall, left hip pain 79-year-old female history of mild cognitive impairment, Alzheimer disease, right hip fracture, hypothyroidism presents for left hip pain reported fall by EMS that occurred in the bathroom. Patient states REVIEW OF SYSTEMS: Pertinent positives: Left hip pain Pertinent negatives: Head trauma, LOC PHYSICAL EXAM: Nursing triage notes reviewed, Vital signs reviewed Primary Survey Airway: Intact Breathing: Bilateral breath sounds Circulation: Palpable bilateral femorals, Palpable bilateral radial, Palpable bilateral DP and Palpable bilateral PT Disability / Spine precautions GCS Score: Eye Openin Verbal Response: 5 Motor Response: 6 Secondary Survey Constitutional: Please see MDM Head: Atraumatic, Midface stable, NO jaw malocclusion, No Cephalohematoma, and No Lacerations noted Eye: Pupils equal round and reactive to light, Extraocular muscles intact and No periorbital ecchymosis or stepoff, no evidence of entrapment ENT: Oropharynx clear, no lacerations, no hemotympanum, no raccoon eyes or nails sign Cervical spine / Neck: No cervical spine bony tenderness, crepitance, or stepoff deformity Trachea midline Lungs: Clear to auscultation, No asymmetric rise and No crepitus, no flail chest Cardiac: Regular rate and rhythm and No murmurs Abdomen: Soft, Nontender and No rebound Pelvis: Pelvis stable to compression : No evidence of genital injury Back: No midline bony tenderness to thoracic/lumbar/sacra l spines Neuro: At baseline, intact strength and sensation in bilateral upper and lower extremities. 2+ patellar reflexes bilaterally. Intact sensation L1-S1 dermatomal distributions. Intact 5/5 strength in hip flexion (T12-L3). Knee extension (L2-L4). Ankle dorsiflexion (L4-L5). Ankle plantar flexion (S1). Great toe extension (L5). 2+ patellar and Achilles DTRs. Extremities: Left lower extremity shortened externally rotated, it is warm well-perfused has intact pulses and sensation however Psych: Normal affect Nursing triage notes reviewed, Vital signs reviewed MEDICAL DECISION MAKING: Chief Complaint: please see HPI External records reviewed: Reviewed recent ED visit which the patient fell onto her right hip. At this time the patient's x-ray was negative Factors affecting care: As per HPI Social determinants of health: [place] resident History obtained from others: EMS Consults: Orthopedic surgery (Dr. Salas), internal medicine (Dr. Wong) MDM Narrative: The patient was initially hemodynamically stable, afebrile and nontoxic-appearing. Primary secondary trauma service concern for left hip pathology (shortened and externally rotated). No sign of intracranial injury spinal injury, upper extremity or right lower extremity injury or chest abdomen p (more content not included)... Normal [facility] Erythrocyte distribution wid th ratioOrdered By: Tommy Huff on 09-23-2024 Erythrocyte distribution width (RBC) [Ratio] 13.5 % 11.6-14.6 [facility] Erythrocyte distribution wid th standard deviationOrdered By: Tommy Huff on 09-23-2024 Erythrocyte distribution width (RBC) [Ratio] 44.6 fl High 35.1-43.9 [facility] Femur Min 2 Viewson 09-24-19 25 Femur Min 2 Views [facility] Imaging Services [address] [place] [address] Femur Min 2 Views MR#: [id number] Acct: [id number] Name: JAEL HUGGINS Rep #: [id number] : 1945 F 79 From: Oscar Brown MD PCP: Dr. Lucio Ayoub MD Status: ADM IN Study: Femur Min 2 Views Date of Exam: 09/23/24 Exam# [id number] Ordering Dr: Braxton Salas DO PROCEDURE: FEMUR MIN 2 VIEWS 09/23/2024 REASON FOR EXAM: SURGERY TECHNIQUE: FEMUR MIN 2 VIEWS COMPARISON: Left hip, 09/23/2024 at 1:26 a.m. FINDINGS: Four views of the left femur demonstrate an intertrochanteric fracture of the left femur. The remainder of the left femur is intact. The knee joint appears unremarkable. RAD/Femur Min 2 Views IMPRESSION: Intertrochanteric fracture of the left femur. Reading Location: [id number] CC: Dr. Braxton Salas DO; Dr. Lucio Ayoub MD Health And Safety Instructor: Signed Normal [facility] Glomerular filtration rate ( GFR) estimation/1.73 sq m using serum, plasma, or whole bOrdered By: Tommy Huff on 09-23-2024 GFR/1.73 sq M.predicted among non-blacks MDRD (S/P/Bld) [Vol rate/Area] 84 mL/min/{1.73_m2} >60 [facility] Comment on above: mL/min/1.73m2 CKD-EP I Creatinine Equation (2020) H AND P Exam - [facility] 09-23-2024 H&P Exam - Hospitalist [facility] Medical Records Department [address] [place] [address] H P Exam - Hospitalist 09/23/24 0242 MR#: [id number] Acct: [id number] Name: JAEL HUGGINS Rep #: [id number] : 1945 79 From: Vic Marques DO PCP: Dr. Lucio Ayoub MD Status:ADM IN Location: MS3 [id number] [facility] - General General Date of Service: 09/23/24 Chief Complaint: Left Hip Fracture after Fall at [facility]. HPI Narrative JAEL HUGGINS, is a 79 F with a past medical history of hypothyroidism; on levothyroxine, mild cognitive impairment, history of iron deficiency anemia, GERD; on pantoprazole and OA; s/p right hip fracture with subsequent ORIF by Dr. Petersen of the orthopedic service who presents to [facility] ER complaining of Left hip fracture after fall at [facility]. Ms. Huggins reports her symptoms began just prior to admission when she lost her balance and fell onto her Left hip with subsequent inability to ambulate. She denies significant head trauma or LOC with her fall. There was no reported fever, chills, nausea, vomiting, diarrhea, constipation, chest pain, palpitations, heart racing, shortness of breath, cough, dysuria, hematuria headache or rash. In the ER she was noted to have x-ray evidence of Acute Left intertrochanteric Femoral Neck Fracture with the ER physician speaking to orthopedic surgeon on-call who recommended admission to the hospitalist service with plan for ORIF on Tuesday, August 25, 2024 with help appreciated in advance. [facility] Medical History Frontal dementia Contusion of right knee Strain of right knee Hemorrhoids Family history of breast cancer Thyroid disease Breast mass, right Abnormal mammogram of right breast Home Medications ???Medication ???Instructions ???Recorded ???Last Taken ???Type levothyroxine 75 mcg tablet 75 mcg PO DAILY THYROID 03/11/20 U nknown History pantoprazole 40 mg tablet,delayed 40 mg PO DAILY GERD 09/23/24 Unkn own History release Allergy/AdvReac Type Severity Reaction Status Date / Time No Known Allergies Allergy Verified 08/01/24 09:56 Family History Mother Breast cancer Sister Breast cancer Sister Lymphoma Surgical History History of right breast biopsy ( 03/2020) History of partial hysterectomy Social History household members: none Smoking Status: Never smoker second hand exposure: No alcohol intake: never substance use type: does not use ROS ROS Narrative Review of Systems: Constitutional: Patient denies fever or chills. Eyes: Patient denies changes vision or discharge from eyes. ENT: Patient denies runny nose, sore throat or ear pain. Resp: Patient denies shortness of breath or cough. CV: Patient denies chest pain, palpitations or heart racing. GI: Patient denies abdominal pain, nausea, vomiting, diarrhea or constipation. : Patient denies dysuria, hematuria or urinary frequency. MSK: Patient admits to persistent Left hip pain since recent fall. Skin: Patient denies rash, abscess, wounds or jaundice. Psych: Patient denies symptoms well-controlled depression or anxiety. Neuro: Patient denies headache, paresthesias or focal neurologic deficits. Allergy: Patient denies lip swelling, tongue swelling or urticaria. Hematology: Patient denies easy bleeding or easy bruisability. Endocrinology: Patient denies polyuria, polydipsia, polyphagia or heat/cold intolerance. 14 point ROS otherwise negative save for positives noted above in HPI. Vital Signs Vital Signs Vital Signs: 09/23/24 00:28 09/23/24 02:28 Temperature 97.7 F L Temperature Source Oral Pulse Rate 81 93 Respiratory Rate 19 H 18 Blood Pressure 155/63 H 156/71 H Blood Pressure Mean 93 99 Pulse Ox 99 94 Oxygen Delivery Method Room Air Room Air Weight Weight: 161 lb 6.054 oz Body Mass Index (BMI) 25.9 Physical Exam Const alert, oriented x3 and average body habitus Constitutional Narrative: Mild distress noted. General Appearance: cooperative HEENT normocephalic, head/scalp atraumatic, hearing grossly normal bilaterally and moist oral mucous membranes Eyes PERRL, EOMs intact bilaterally and conjunctivae normal Neck no lymphadenopathy, supple and no JVD Resp normal respiratory effort, no retractions, no use of accessory muscles and clear to auscultation bilaterally Cardio regular rate and regular rhythm GI normal to inspection, nondistended, normoactive bowel sounds, soft to palpation, non-tender and non- distended Extremity Extremity Narrative: LLE shortened and externally rotated with no signs of vascular comp (more content not included)... Normal [facility] HIP, UNI W/ Pelvis 2-3 Views on 09-23-2024 HIP, UNI W/ Pelvis 2-3 Views [facility] Imaging Services [address] [place] [address] HIP, UNI W/ Pelvis 2-3 Views MR#: [id number] Acct: [id number] Name: JAEL HUGGINS Rep #: [id number] : 1945 F 79 From: Pravin Reina MD PCP: Dr. Lucio Ayoub MD Status: REG ER Study: HIP, UNI W/ Pelvis 2-3 Views Date of Exam: 09/12 Exam# [id number] Ordering Dr: Tommy Huff DO PROCEDURE: HIP, UNI W/ PELVIS 2-3 VIEWS 09/23/2024 REASON FOR EXAM: LEFT HIP PAIN TECHNIQUE: HIP, UNI W/ PELVIS 2-3 VIEWS COMPARISON: 08/22/2023 FINDINGS: Lower lumbar spine degeneration. Intact pelvic ring. Remote right femur injury status post repair. Acute left intertrochanteric femoral neck fracture, medial impaction and angulation. Mild displacement. Mild left hip osteoarthritis. No dislocation. RAD/HIP, UNI W/ Pelvis 2-3 Views IMPRESSION: Acute left intertrochanteric femoral neck fracture. Reading Location: [place] [address] CC: Dr. Lucio Ayoub MD; Dr. Tommy Huff DO Health And Safety Instructor: Signed Normal [facility] Hematocrit Auto (Bld) [Volum e fraction]Ordered By: Tommy Huff on 09-23-2024 Hematocrit (Bld) [Volume fraction] 34.6 % Low 37-47 [facility] Hemoglobin measurementOrdere d By: Tommy Huff on 09-23-2024 Hemoglobin (Bld) [Mass/Vol] 11.3 g/dL Low 12.0-15.0 [facility] Ketones Test strip Ql (U)Ord ered By: Vic Wong on 09-23-2024 Ketones Ql (U) Negative Negative [facility] MCV (mean corpuscular volume ) determinationOrdered By: Tommy Huff on 09-23-2024 MCV (RBC) [Entitic vol] 89.9 fL 81-99 [facility] Magnesiumon 09-23-2024 Magnesium [Mass/Vol] 2.2 mg/dL Normal 1.5-2.[address] [facility] Comment on above: Performed By: #### L 501.5200, L501.9520 #### [facility] Laboratory [facility] [place], [address] Magnesium measurement (mass/ volume)Ordered By: Vic Wong on 09-23-2024 Magnesium (Unsp spec) [Mass/Vol] 2.2 mg/dL 1.5-2.2 [facility] Mean corpuscular hemoglobin (MCH) determinationOrdered By: Tommy Huff on 09-23-2024 MCH (RBC) [Entitic mass] 29.4 pg 27.0-32.0 [facility] Mean corpuscular hemoglobin concentration (MCHC) determinationOrdered By: Tommy Huff on 09-23-2024 MCHC (RBC) [Mass/Vol] 32.7 g/dL 32-36 [facility] Mean platelet volume determi nationOrdered By: Tommy Huff on 09-23-2024 Platelet mean volume (Bld) [Entitic vol] 9.7 fL 6.2-12.0 [facility] Microscopic analysis of urin e for red blood cells (RBC)Ordered By: Vic Wong on 09-23-2024 Microscopic analysis of urine for red blood cells (RBC) 0 SEEN /hpf 0-5 [facility] Mucus LM Ql (Urine sed)Order ed By: Vic Wong on 09-23-2024 Mucus Ql (Urine sed) 0 SEEN /hpf [facility] Nitrite Test strip Ql (U)Ord ered By: Vic Wong on 09-23-2024 Nitrite Ql (U) Positive High Negative [facility] Platelet countOrdered By: Marcela Huff on 09-23-2024 Platelets (Bld) [#/Vol] 265 10*3/uL 150-450 [facility] Potassium measurement (mass/ volume)Ordered By: Tommy Huff on 09-23-2024 Potassium (Unsp spec) [Mass/Vol] 3.7 mmol/L 3.3-5.1 [facility] Protein Test strip Ql (U)Ord ered By: Vic Wong on 09-23-2024 Protein Ql (U) 30 mg/dl High Negative [facility] RBC Auto (Bld) [#/Vol]Ordere d By: Tommy Huff on 09-23-2024 RBC (Bld) [#/Vol] 3.85 10*6/uL Low 4.2-5.4 [facility] Serum creatinine measurement (mass/volume)Ordered By: Tommy Huff on 09-23-2024 Creatinine [Mass/Vol] 0.73 mg/dL 0.70-1.20 [facility] Serum glucose measurement (m ass/volume)Ordered By: Tommy Huff on 09-23-2024 Glucose [Mass/Vol] 136 mg/dL High 70-99 [facility] Serum or plasma calcium guy urement (mass/volume)Ordered By: Tommy Huff on 09-23-2024 Calcium [Mass/Vol] 8.7 mg/dL 7.6-11.0 [facility] Serum or plasma urea nitroge n measurement (mass/volume)Ordered By: Tommy Huff on 09-23-2024 Urea nitrogen [Mass/Vol] 14 mg/dL 4-19 [facility] Sodium levelOrdered By: Martha Huff on 09-23-2024 Sodium [Moles/Vol] 139 mmol/L 133-145 [facility] Squamous epithelial cells de tection in urine sediment by light microscopyOrdered By: Vic Wong on 09-23-2024 Epithelial cells.squamous LM Ql (Urine sed) 10-25 SEEN /hpf 5-10 [facility] Thyroid Stim Hormone (TSH)on 09-23-2024 TSH 3.060 uIU/mL Normal 0.300-4.200 [facility] Comment on above: Performed By: #### L [id number], L501.9520 #### [facility] Laboratory [address] [place], [place] [address], [address] Type AND Screenon 09-23-2024 ABO and Rh group Nom (Bld) Blood group AB Rh(D) positive Normal [facility] Comment on above: Order Comment: Has p t arrived? YS Performed By: #### B TS ####[facility] [address] [place], [address] Urinalysis, Completeon 09-23 BACTERIA 2+ /hpf Normal None Seen [facility] Comment on above: Order Comment: ALLI TER SPECIMEN Performed By: #### L [id number] #### [facility] Laboratory [address] [place], [address] EPI,SQUAMOUS 10-25 SEEN Normal 5-10 [facility] Comment on above: Order Comment: ALLI TER SPECIMEN Performed By: #### L [id number] #### [facility] Laboratory [address] [place], [address] WBC >100 SEEN Normal 0-5 [facility] Comment on above: Order Comment: ALLI TER SPECIMEN Performed By: #### L [id number] #### [facility] Laboratory [address] [place], [address] Mucus Ql (Urine sed) 0 SEEN Normal [facility] Comment on above: Order Comment: ALLI TER SPECIMEN Performed By: #### L [id number] #### [facility] Laboratory [address] [place], [address] RBC 0 SEEN Normal 0-5 [facility] Comment on above: Order Comment: ALLI TER SPECIMEN Performed By: #### L [id number] #### [facility] Laboratory [address] [place], [address] Urine clarityOrdered By: Reinier Wong on 09-23-2024 Clarity (U) Sl. Cloudy Clear [facility] Urine color determinationOrd ered By: Vic Wong on 09-23-2024 Color (U) Yellow Yellow [facility] Urine cultureOrdered By: Martin Cali on 09-23-2024 Bacteria identified Cx Nom (U) Escherichia coli Abnormal [facility] Urine glucose detectionOrder ed By: Vic Wong on 09-23-2024 Glucose Ql (U) Normal mg/dl Normal [facility] Urine leukocyte esterase det ection by dipstickOrdered By: Vic Wong on 09-23-2024 Leukocyte esterase Test strip Ql (U) 500 /ul High Negative [facility] Urine pHOrdered By: Vic warren on 09-23-2024 pH (U) 6.0 [pH] 5.0 - 8.0 [facility] Urine sediment bacteria coun t by microscopy (number/high power field)Ordered By: Vic Wong on 09-23-2024 Bacteria LM.HPF (Urine sed) [#/Area] 2 /[HPF] None Seen [facility] Urine specific gravity measu rementOrdered By: Vic Wong on 09-23-2024 Specific gravity (U) [Rel density] 1.025 1.002-1.030 [facility] Urine urobilinogen measureme ntOrdered By: Vic Wong on 09-23-2024 Urobilinogen Ql (U) Normal mg/dl Normal [facility] White blood cell (WBC) count Ordered By: Tommy Huff on 09-23-2024 WBC (Bld) [#/Vol] 9.9 10*3/uL 4.4-11.0 [facility] White blood cell countOrdere d By: Vic Wong on 09-23-2024 White blood cell count >100 SEEN /hpf 0-5 [facility] Orthopedic Visit Reporton Orthopedic Visit Report [facility] [address] [place] [address] OFFICE VISIT Date of Service: 08/01/24 MR#: [id number] Acct: [id number] Name: BHAVNAJAEL LAI Rep #: [id number] : 1945 Provider: Dr. Braxton wayne DO Age/Sex: 78/F Location[place] [facility] Status: Signed Intake Vital Signs 01/03/24 10:36 [...] you fallen in the past year?: Yes PFSH Medical History Contusion of right knee Strain [...] didn't work. She went to [facility] for her hand. They had her [...] Carpal tunne (more content not included)... Normal [facility] TSH DL <= 0.005 mIU/L QnOrde red By: Lucio Ayoub on 07-16-2024 TSH Qn 9.610 uIU/mL High 0.300-4.200 [facility] Thyroid Stim Hormone (TSH)on 07-16-2024 TSH 9.610 uIU/mL High 0.300-4.200 [facility] Comment on above: Performed By: #### L [id number] #### [facility] Laboratory [address] [place], [address] Absolute lymphocyte countOrd ered By: Lucio Ayoub on 05-22-2024 Lymphocytes Auto (Unsp spec) [#/Vol] 2.10 10*3/uL 0.83-4.51 [facility] Absolute neutrophil countOrd ered By: Lucio Ayoub on 05-22-2024 Neutrophils (Bld) [#/Vol] 4.8 10*3/uL 2.0-7.7 [facility] Anion gap in Serum or Plasma Ordered By: Lucio Ayoub on 05-22-2024 Anion gap [Moles/Vol] 14 mmol/L 5-15 [facility] Automated lymphocyte count a s percentage of total leukocytesOrdered By: Lucio Ayoub on 05-22-2024 Lymphocytes/100 WBC Auto (Unsp spec) 27.2 % 19-41 [facility] BUN/creatinine ratioOrdered By: Lucio Ayoub on 05-22-2024 Urea nitrogen/Creatinine [Mass ratio] 15.2 mg/mg 10-20 [facility] Basophil percentageOrdered B y: Lucio Ayoub on 05-22-2024 Basophils/100 WBC (Bld) 0.5 % 0-1 [facility] Bilirubin, totalOrdered By: Lucio Ayoub on 05-22-2024 Bilirubin [Mass/Vol] 0.27 mg/dL 0.00-1.[address] [facility] CBC W/Diff, Automatedon Absolute Lymph 2.10 X10 3/uL Normal 0.83-4.51 [facility] Comment on above: Performed By: #### L [id number] #### [facility] Laboratory [address] [place], [address] Absolute Neut 4.8 X10 3/uL Normal 2.0-7.7 [facility] Comment on above: Performed By: #### L [id number] #### [facility] Laboratory [address] [place], [address] Basophils/100 WBC (Bld) 0.5 % Normal 0-1 [facility] Comment on above: Performed By: #### L [id number] #### [facility] Laboratory [address] [place], [address] Eosinophils/100 WBC (Bld) 2.6 % Normal 0-5 [facility] Comment on above: Performed By: #### L [id number] #### [facility] Laboratory [address] [place], [address] Erythrocyte distribution width (RBC) [Ratio] 13.2 % Normal 11.6-14.6 [facility] Comment on above: Performed By: #### L [id number] #### [facility] Laboratory [address] [place], [address] Hematocrit (Bld) [Volume fraction] 40.2 % Normal 37-47 [facility] Comment on above: Performed By: #### L [id number] #### [facility] Laboratory [address] [place], [address] Hemoglobin (Bld) [Mass/Vol] 13.1 g/dL Normal 12.0-15.0 [facility] Comment on above: Performed By: #### L [id number] #### [facility] Laboratory [address] [place], [address] IG% 0.400 Normal 0.0-0.9 [facility] Comment on above: Result Comment: IG% - Immature Granulocytes (promyelocytes, myelocytes and metamyelocytes) > 1% indicates that a LEFT SHIFT is Present. Performed By: #### L [id number] #### [facility] Laboratory [address] [place], [address] Lymphocytes/100 WBC (Bld) 27.2 % Normal 19-41 [facility] Comment on above: Performed By: #### L [id number] #### [facility] Laboratory [address] [place], [address] MCH (RBC) [Entitic mass] 29.8 pg Normal 27.0-32.0 [facility] Comment on above: Performed By: #### L [id number] #### [facility] Laboratory [address] [place], [address] MCHC (RBC) [Mass/Vol] 32.6 g/dL Normal 32-36 [facility] Comment on above: Performed By: #### L [id number] #### [facility] Laboratory [address] [place], [address] MCV (RBC) [Entitic vol] 91.6 fL Normal 81-99 [facility] Comment on above: Performed By: #### L [id number] #### [facility] Laboratory [address] [place], [address] Monocytes/100 WBC (Bld) 7.1 % Normal 0-10 [facility] Comment on above: Performed By: #### L [id number] #### [facility] Laboratory [address] [place], [address] Neutrophils/100 WBC (Bld) 62.2 % Normal 47-70 [facility] Comment on above: Performed By: #### L [id number] #### [facility] Laboratory [address] [place], [address] Nucleated RBC (Bld) [#/Vol] 0 10*3/uL Normal 0-5 [facility] Comment on above: Performed By: #### L [id number] #### [facility] Laboratory [address] [place], [address] Platelet mean volume (Bld) [Entitic vol] 10.0 fL Normal 6.2-12.0 [facility] Comment on above: Performed By: #### L [id number] #### [facility] Laboratory [address] [place], [address] Platelets (Bld) [#/Vol] 321 10*3/uL Normal 150-450 [facility] Comment on above: Performed By: #### L [id number] #### [facility] Laboratory [address] [place], [address] RBC (Bld) [#/Vol] 4.39 10*6/uL Normal 4.2-5.4 [facility] Comment on above: Performed By: #### L [id number] #### [facility] Laboratory [address] [place], [address] RDW SD 44.6 fl High 35.1-43.9 [facility] Comment on above: Performed By: #### L [id number] #### [facility] Laboratory [address] [place], [address] WBC (Bld) [#/Vol] 7.7 10*3/uL Normal 4.4-11.0 [facility] Comment on above: Performed By: #### L [id number] #### [facility] Laboratory [address] [place], [address] Calculated very low density lipoprotein (VLDL) cholesterol measurementOrdered By: Lucio Ayoub on 05-22-2024 Calculated very low density lipoprotein (VLDL) cholesterol measurement 32 mg/dL -40 [facility] VLDL Cholesterol 32 mg/dL -40 [facility] Carbon dioxide, total [Moles /volume] in Central venous bloodOrdered By: Lucio Ayoub on 05-22-2024 CO2 [Moles/Vol] 20.1 mmol/L Low 21.0-32.0 [facility] Chloride assayOrdered By: Adriano Ayoub on 05-22-2024 Chloride [Moles/Vol] 106 mmol/L 98-[address] [facility] Comprehensive Metabolic Prof ilon 05-22-2024 Albumin [Mass/Vol] 4.1 g/dL Normal 3.4-4.8 [facility] Comment on above: Performed By: #### L [id number], L501.9520 #### [facility] Laboratory [address] [place], [address] Albumin/Globulin [Mass ratio] 1.4 {ratio} Normal 0.9-2.4 [facility] Comment on above: Performed By: #### L 501.5200, [id number] #### [facility] Laboratory [address] [place], [address] ALK PHOS 165 U/L High 35-104 [facility] Comment on above: Performed By: #### L 501.5200, [id number] #### [facility] Laboratory [address] [place], [address] ALT [Catalytic activity/Vol] 26 U/L Normal <=34 [facility] Comment on above: Performed By: #### L 501.5200, [id number] #### [facility] Laboratory [address] [place], [address] AST [Catalytic activity/Vol] 24 U/L Normal <=31 [facility] Comment on above: Performed By: #### L 501.5200, L501.9520 #### [facility] Laboratory [address] [place], [address] Bilirubin [Mass/Vol] 0.27 mg/dL Normal 0.00-1.[address] [facility] Comment on above: Performed By: #### L 501.5200, [id number] #### [facility] Laboratory [address] [place], [address] BUN/CRE 15.2 RATIO Normal 10-20 [facility] Comment on above: Performed By: #### L 501.5200, [id number] #### [facility] Laboratory [address] [place], [address] Calcium [Mass/Vol] 9.5 mg/dL Normal 7.6-11.0 [facility] Comment on above: Performed By: #### L 501.5200, [id number] #### [facility] Laboratory [address] [place], [address] Chloride [Moles/Vol] 106 mmol/L Normal 98-[address] [facility] Comment on above: Performed By: #### L 501.5200, [id number] #### [facility] Laboratory [address] [place], [address] CO2 [Moles/Vol] 20.1 mmol/L Low 21.0-32.0 [facility] Comment on above: Performed By: #### L 501.5200, [id number] #### [facility] Laboratory [address] [place], [address] Creatinine [Mass/Vol] 0.75 mg/dL Normal 0.70-1.20 [facility] Comment on above: Performed By: #### L 501.5200, [id number] #### [facility] Laboratory [address] [place], [address] GAP 14 Normal 5-15 [facility] Comment on above: Performed By: #### L 501.5200, L501.9520 #### [facility] Laboratory [address] [place], [address] GFR/1.73 sq M.predicted among non-blacks MDRD (S/P/Bld) [Vol rate/Area] 81 mL/min/{1.73_m2} Normal >60 [facility] Comment on above: Result Comment: mL/m in/1.73m2 CKD-EPI Creatinine Equation (2020) Performed By: #### L 501.5200, [id number] #### [facility] Laboratory [address] [place], [address] Globulin (S) [Mass/Vol] 2.9 g/dL Normal 2.2-4.2 [facility] Comment on above: Performed By: #### L 501.5200, [id number] #### [facility] Laboratory [address] [place], [address] Glucose [Mass/Vol] 147 mg/dL High 70-99 [facility] Comment on above: Performed By: #### L 501.5200, [id number] #### [facility] Laboratory [address] [place], [address] Potassium [Moles/Vol] 3.8 mmol/L Normal 3.3-5.1 [facility] Comment on above: Performed By: #### L 501.5200, [id number] #### [facility] Laboratory [address] [place], [address] Sodium [Moles/Vol] 140 mmol/L Normal 133-145 [facility] Comment on above: Performed By: #### L 501.5200, [id number] #### [facility] Laboratory [address] [place], [address] T PROT 7.0 g/dL Normal 5.9-8.4 [facility] Comment on above: Performed By: #### L 501.5200, [id number] #### [facility] Laboratory [address] [place], [address] Urea nitrogen [Mass/Vol] 11 mg/dL Normal 4-19 [facility] Comment on above: Performed By: #### L 501.5200, [id number] #### [facility] Laboratory [address] [place], [address] Eosinophil percentageOrdered By: Lucio Ayoub 05-22-2024 Eosinophils/100 WBC (Bld) 2.6 % 0-5 [facility] Erythrocyte distribution wid th ratioOrdered By: Lucio Ayoub 05-22-2024 Erythrocyte distribution width (RBC) [Ratio] 13.2 % 11.6-14.6 [facility] Erythrocyte distribution wid th standard deviationOrdered By: Lucio Ayoub 05-22-2024 Erythrocyte distribution width (RBC) [Entitic vol] 44.6 fL High 35.1-43.9 [facility] Erythrocyte distribution width (RBC) [Ratio] 44.6 fl High 35.1-43.9 [facility] GFR/1.73 sq M.predicted shivani g non-blacks MDRD (S/P/Bld) [Vol rate/Area]Ordered By: Lucio Ayoub 05-22-2024 Estimated GFR (MDRD) Non-Af Amer 81 >60 [facility] Comment on above: mL/min/1.73m2 CKD-EP I Creatinine Equation (2020) Glomerular filtration rate ( GFR) estimation/1.73 sq m using serum, plasma, or whole bOrdered By: Lucio Ayoub 05-22-2024 GFR/1.73 sq M.predicted among non-blacks MDRD (S/P/Bld) [Vol rate/Area] 81 mL/min/{1.73_m2} >60 [facility] Comment on above: mL/min/1.73m2 CKD-EP I Creatinine Equation (2020) Hematocrit Auto (Bld) [Volum e fraction]Ordered By: Lucio Ayoub 05-22-2024 Hematocrit (Bld) [Volume fraction] 40.2 % 37-47 [facility] Hemoglobin measurementOrdere d By: Lucio Ayoub 05-22-2024 Hemoglobin (Bld) [Mass/Vol] 13.1 g/dL 12.0-15.0 [facility] Immature granulocytes/100 WB C Auto (Bld)Ordered By: Lucio Ayoub 05-22-2024 Immature granulocytes/100 WBC (Bld) 0.400 % 0.0-0.9 [facility] Comment on above: IG% - Immature Granu locytes (promyelocytes, myelocytes and metamyelocytes) > 1% indicates that a LEFT SHIFT is Present. L506.1001on 05-22-2024 Vitamin D 25-OH 20.8 ng/mL Low 30-100 [facility] Comment on above: Result Comment: Roxie min D Status Deficiency: <20 ng/mL (50nmol/L) Insufficiency: 20-30 ng/mL (50-75 nmol/L) Sufficiency: 30-100 ng/mL (75-250 nmol/L) Toxicity: >100 ng/mL (>250 nmol/L) Performed By: #### L 501.5200, L501.9520 #### [facility] Laboratory [address] [place], [address] LDL calc ser/plasOrdered By: Lucio Ayoub on 05-22-2024 Cholesterol in LDL [Mass/Vol] 86 mg/dL [facility] Comment on above: Epnjjlczun=530-163 m g/dL & Higher Azkm=102 mg/dL or greater LDL Cholesterol, Calculated 86 mg/dL [facility] Comment on above: Acyrigkleu=677-659 m g/dL & Higher Xfae=499 mg/dL or greater Laboratory - Chemistry and C hemistry - challengeOrdered By: Lucio Ayoub on 05-22-2024 AST [Catalytic activity/Vol] 24 U/L <32 [facility] Lipid Profileon 05-22-2024 CHOL:HDL 2.40 Normal [facility] Comment on above: Performed By: #### L 501.5200, L501.9520 #### [facility] Laboratory [address] [place], [place], [id number] (336) Cholesterol [Mass/Vol] 203 mg/dL High <=200 [facility] Comment on above: Result Comment: Chol esterol level, Desirable <200 mg/dL Borderline high cholesterol 200-239 mg/dL High cholesterol >=240 mg/dL Recommendations of the NCEP Adult Treatment Panel for the following risk-cutoff thresholds for the [place] population. Performed By: #### L 501.5200, L501.9520 #### [facility] Laboratory [address] [place], [address] Cholesterol in HDL [Mass/Vol] 85 mg/dL Normal [facility] Comment on above: Result Comment: Liliana oncristobal Cholesterol Education Program (NCEP) guidelines: <40 mg/dL: Low HDL-cholesterol (major risk factor for CHD) >= 60 mg/dL: High HDL-cholesterol (negative risk factor for CHD) HDL-cholesterol is affected by a number of factors, e.g. smoking, exercise, hormones, sex and age. Performed By: #### L 501.5200, L501.9520 #### [facility] Laboratory [address] [place], [address] Cholesterol in LDL [Mass/Vol] 86 mg/dL Normal [facility] Comment on above: Result Comment: Bord oleuzz=336-170 mg/dL Higher Ismk=941 mg/dL or greater Performed By: #### L 501.5200, L501.9520 #### [facility] Laboratory [address] [place], [address] Cholesterol in VLDL [Mass/Vol] 32 mg/dL Normal 5-40 [facility] Comment on above: Performed By: #### L 501.5200, L501.9520 #### [facility] Laboratory [address] [place], [address] Triglyceride [Mass/Vol] 161 mg/dL Normal [facility] Comment on above: Result Comment: The drugs N-Acetylcysteine and Metamizole may falsely depress this assay. Normal range: <150 mg/dL Borderline High: 150-199 mg/dL High: 200-499 mg/dL Very High: >500 mg/dL Performed By: #### L 501.5200, L501.9520 #### [facility] Laboratory [address] [place], [address] Lymphocytes Auto (Unsp spec) [#/Vol]Ordered By: Lucio Ayoub on 05-22-2024 Lymphocytes (Bld) [#/Vol] 2.10 10*3/uL 0.83-4.5 1 [facility] Lymphocytes/100 WBC Auto (Un sp spec)Ordered By: Lucio Ayoub on 05-22-2024 Lymphocytes/100 WBC (Bld) 27.2 % 19-41 [facility] MCV (mean corpuscular volume ) determinationOrdered By: Lucio Ayoub on 05-22-2024 MCV (RBC) [Entitic vol] 91.6 fL 81-99 [facility] Mean corpuscular hemoglobin (MCH) determinationOrdered By: Lucio Ayoub on 05-22-2024 MCH (RBC) [Entitic mass] 29.8 pg 27.0-32.0 [facility] Mean corpuscular hemoglobin concentration (MCHC) determinationOrdered By: Lucio Ayoub on 05-22-2024 MCHC (RBC) [Mass/Vol] 32.6 g/dL 32-36 [facility] Mean platelet volume determi nationOrdered By: Lucio Ayoub on 05-22-2024 Platelet mean volume (Bld) [Entitic vol] 10.0 fL 6.2-12.0 [facility] Monocyte percentageOrdered B y: Lucio Ayoub on 05-22-2024 Monocytes/100 WBC (Bld) 7.1 % 0-10 [facility] Neutrophil percentageOrdered By: Lucio Ayoub on 05-22-2024 Neutrophils/100 WBC (Bld) 62.2 % 47-70 [facility] Nucleated red blood cell per centageOrdered By: Lucio Ayoub on 05-22-2024 Nucleated RBC/100 WBC (Bld) [Ratio] 0 % 0-5 [facility] Platelet countOrdered By: Adriano Ayoub on 05-22-2024 Platelets (Bld) [#/Vol] 321 10*3/uL 150-450 [facility] Potassium (Unsp spec) [Mass/ Vol]Ordered By: Lucio Ayoub on 05-22-2024 Potassium [Moles/Vol] 3.8 mmol/L 3.3-5.1 [facility] Potassium measurement (mass/ volume)Ordered By: Lucio Ayoub on 05-22-2024 Potassium (Unsp spec) [Mass/Vol] 3.8 mmol/L 3.3-5.1 [facility] RBC Auto (Bld) [#/Vol]Ordere d By: Lucio Ayoub on 05-22-2024 RBC (Bld) [#/Vol] 4.39 10*6/uL 4.2-5.4 [facility] Screening total cholesterol/ high density lipoprotein (HDL) cholesterol ratioOrdered By: Lucio Ayoub on 05-22-2024 Cholesterol.total/Cholest kaitlyn in HDL [Mass ratio] 2.40 {ratio} [facility] Serum creatinine measurement (mass/volume)Ordered By: Lucio Ayoub on 05-22-2024 Creatinine [Mass/Vol] 0.75 mg/dL 0.70-1.20 [facility] Serum globulin measurementOr dered By: Lucio Ayoub on 05-22-2024 Globulin (S) [Mass/Vol] 2.9 g/dL 2.2-4.2 [facility] Serum glucose measurement (m ass/volume)Ordered By: Lucio Ayoub on 05-22-2024 Glucose [Mass/Vol] 147 mg/dL High 70-99 [facility] Serum or plasma alanine cervantes otransferase (ALT) measurementOrdered By: Lucio Ayoub on 05-22-2024 ALT [Catalytic activity/Vol] 26 U/L <35 [facility] Serum or plasma albumin guy urement (mass/volume)Ordered By: Lucio Ayoub on 05-22-2024 Albumin [Mass/Vol] 4.1 g/dL 3.4-4.8 [facility] Serum or plasma albumin/glob ulin mass ratioOrdered By: Lucio Ayoub on 05-22-2024 Albumin/Globulin [Mass ratio] 1.4 {ratio} 0.9-2.4 [facility] Serum or plasma alkaline aakash sphatase measurementOrdered By: Lucio Ayoub 05-22-2024 ALP [Catalytic activity/Vol] 165 U/L High 35-104 [facility] Serum or plasma calcium guy urement (mass/volume)Ordered By: Lucio Ayoub 05-22-2024 Calcium [Mass/Vol] 9.5 mg/dL 7.6-11.0 [facility] Serum or plasma cholesterol in HDL measurement (mass/volume)Ordered By: Lucio Ayoub on 05-22-2024 Cholesterol in HDL [Mass/Vol] 85 mg/dL >40 [facility] Comment on above: National Cholesterol Education Program (NCEP) guidelines:<40 mg/dL: Low HDL-cholesterol (major risk factor for CHD)>= 60 mg/dL: High HDL-cholesterol (negative risk factor for CHD)HDL-cholesterol is affected by a number of factors, e.g. smoking, exercise, hormones, sex and age. Serum or plasma cholesterol measurement (mass/volume)Ordered By: Lucio Ayoub on 05-22-2024 Cholesterol [Mass/Vol] 203 mg/dL High <201 [facility] Comment on above: Cholesterol level, D esirable <200 mg/dLBorderline high cholesterol 200-239 mg/dLHigh cholesterol >=240 mg/dLRecommendations of the NCEP Adult Treatment Panel for the following risk-cutoff thresholds for the [place] population. Serum or plasma urea nitroge n measurement (mass/volume)Ordered By: Lucio Ayoub on 05-22-2024 Urea nitrogen [Mass/Vol] 11 mg/dL 4-19 [facility] Sodium levelOrdered By: Lucio Ayoub on 05-22-2024 Sodium [Moles/Vol] 140 mmol/L 133-145 [facility] TSH DL <= 0.005 mIU/L QnOrde red By: Lucio Ayoub on 05-22-2024 Thyroid Stimulating Hormone (TSH) 17.500 uIU/mL High 0.300-4.200 [facility] TSH Qn 17.500 uIU/mL High 0.300-4.200 [facility] Thyroid Stim Hormone (TSH)on 05-22-2024 TSH 17.500 uIU/mL High 0.300-4.200 [facility] Comment on above: Performed By: #### L 501.5200, L501.9520 #### [facility] Laboratory [facility] [place], [address] Total proteinOrdered By: Lucio Ayoub on 05-22-2024 Protein [Mass/Vol] 7.0 g/dL 5.9-8.4 [facility] Triglycerides measurementOrd ered By: Lucio Ayoub on 05-22-2024 Triglyceride [Mass/Vol] 161 mg/dL <199 [facility] Comment on above: The drugs N-Acetylcy steine and Metamizole may falsely depress this assay. Normal range: <150 mg/dLBorderline High: 150-199 mg/dLHigh: 200-499 mg/dLVery High: >500 mg/dL Vitamin D, 25-hydroxyOrdered By: Lucio Ayoub on 05-22-2024 Vitamin D 25-Hydroxy 20.8 ng/mL Low 30-[address] [facility] Comment on above: Vitamin D StatusDefi ciency: <20 ng/mL (50nmol/L)Insufficiency: 20-30 ng/mL (50-75 nmol/L)Sufficiency: 30-100 ng/mL (75-250 nmol/L)Toxicity: >100 ng/mL (>250 nmol/L) White blood cell (WBC) count Ordered By: Lucio Ayoub on 05-22-2024 WBC (Bld) [#/Vol] 7.7 10*3/uL 4.4-11.0 [facility] D/C Summary- SPon 04-26-2024 D/C Summary- SP [facility] Speech Pathology [facility] [address] [place] [address]. [address] [place] [address] / REHABILITATION SERVICES DISCHARGE SUMMARY MR#: [id number] Acct: [id number] Name: JAEL HUGGINS Rep #: [id number] : 1945 78 From: Myra Lowery M.S., CCC-SALES SERVICE SUPERVISOR Referring Dr.: Dr. Lucio Ayoub MD Status: REG RCR Insurance: [employer] SELF PAY INSURANCE Discharge Summary Discharged: Discharge: JAEL HUGGINS is a 78 year old female who presented to [facility] on 10/12/2023 following dx of aphasia and mild cognitive impairment. She attended 39 additional sessions targeting expressive language production through use of VNEST, Semantic Feature Analysis, aphasia word finding strategies, and executive functioning tasks. Her last appt at [facility] was on 04/19/2024. As of 04/25/2024, Pt [...] Dr. Lucio Ayoub MD RE Signed Normal [facility] OT D/C of Non Returning Pton 04-25-2024 OT D/C of Non Returning Pt [facility] Occupational Therapy [facility] [address] [place] [address] / REHABILITATION SERVICES DISCHARGE SUMMARY MR#: [id number] Acct: [id number] Name: JAEL HUGGINS Rep #: [id number] : 1945 78 From: Blanca Britton Referring [...] Dr. Lucio Ayoub MD CK Signed Normal [facility] Bilirubin Test strip Ql (U)O rdered By: Lucio Ayoub on 04-06-2024 Bilirubin Ql (U) Negative Negative [facility] Calcium oxalate crystals LM Ql (Urine sed)Ordered By: Lucio Ayoub on 04-06-2024 Urine Calcium Oxalate Crystals 3+ /hpf [facility] Calcium oxalate crystals det ection in urine sediment by light microscopyOrdered By: Lucio Ayoub on 04-06-2024 Calcium oxalate crystals LM Ql (Urine sed) 3+ /hpf [facility] Epithelial cells.squamous LM Ql (Urine sed)Ordered By: Lucio Ayoub on 04-06-2024 Epithelial cells.squamous LM.HPF (Urine sed) [#/Area] 10 /[HPF] 5-10 [facility] Glucose Ql (U)Ordered By: Adriano Ayoub on 04-06-2024 Urine Glucose (UA) Normal mg/dl Normal [facility] Ketones Test strip Ql (U)Ord ered By: Lucio Ayoub on 04-06-2024 Ketones Ql (U) Negative Negative [facility] Microscopic analysis of urin e for red blood cells (RBC)Ordered By: Lucio Ayoub on 04-06-2024 Microscopic analysis of urine for red blood cells (RBC) 0-5 SEEN /hpf 0-5 [facility] Urine RBC 0-5 SEEN /hpf 0-5 [facility] Mucus LM Ql (Urine sed)Order ed By: Lucio Ayoub on 04-06-2024 Mucus Ql (Urine sed) 0 SEEN /hpf [facility] Nitrite Test strip Ql (U)Ord ered By: Lucio Ayoub on 04-06-2024 Nitrite Ql (U) Negative Negative [facility] Protein Test strip Ql (U)Ord ered By: Lucio Ayoub on 04-06-2024 Protein Ql (U) 15 mg/dl High Negative [facility] Squamous epithelial cells de tection in urine sediment by light microscopyOrdered By: Lucio Ayoub on 04-06-2024 Epithelial cells.squamous LM Ql (Urine sed) 10-25 SEEN /hpf 5-10 [facility] Urinalysis, Completeon 04-06 BACTERIA 1+ /hpf Normal None Seen [facility] Comment on above: Order Comment: Urine , Random Performed By: #### L 400.0001 #### [facility] Laboratory [address] [place], [place], [id number] RBC 0-5 SEEN Normal 0-5 [facility] Comment on above: Order Comment: Urine , Random Performed By: #### L 400.0001 #### [facility] Laboratory [address] [place], [address] CA OX CRYSTAL 3+ /hpf Normal [facility] Comment on above: Order Comment: Urine , Random Performed By: #### L 400.0001 #### [facility] Laboratory [address] [place], [address] EPI,SQUAMOUS 10-25 SEEN Normal 5-10 [facility] Comment on above: Order Comment: Urine , Random Performed By: #### L 400.0001 #### [facility] Laboratory [address] [place], [address] WBC 10-25 SEEN Normal 0-5 [facility] Comment on above: Order Comment: Urine , Random Performed By: #### L 400.0001 #### [facility] Laboratory [address] [place], [address] Mucus Ql (Urine sed) 0 SEEN Normal [facility] Comment on above: Order Comment: Urine , Random Performed By: #### L 400.0001 #### [facility] Laboratory [address] [place], [address] Urine blood detectionOrdered By: Lucio Ayoub on 04-06-2024 Urine Occult Blood 10 /ul High Negative [facility] Urine clarityOrdered By: Lucio Ayoub on 04-06-2024 Clarity (U) Sl. Cloudy Clear [facility] Urine color determinationOrd ered By: Lucio Ayoub on 04-06-2024 Color (U) Yellow Yellow [facility] Urine glucose detectionOrder ed By: Lucio Ayoub on 04-06-2024 Glucose Ql (U) Normal mg/dl Normal [facility] Urine leukocyte esterase det ection by dipstickOrdered By: Lucio Ayoub on 04-06-2024 Leukocyte esterase Test strip Ql (U) 500 /ul High Negative [facility] Urine pHOrdered By: Lucio Ayoub on 04-06-2024 pH (U) 5.0 [pH] 5.0 - 8.0 [facility] Urine sediment bacteria coun t by microscopy (number/high power field)Ordered By: Lucio Ayoub on 04-06-2024 Bacteria LM.HPF (Urine sed) [#/Area] 1 /[HPF] None Seen [facility] Urine specific gravity measu rementOrdered By: Lucio Ayoub on 04-06-2024 Specific gravity (U) [Rel density] 1.025 1.002-1.030 [facility] Urine urobilinogen measureme ntOrdered By: Lucio Ayoub on 04-06-2024 Urobilinogen Ql (U) 1 mg/dl High Normal [facility] Urobilinogen Ql (U)Ordered B y: Lucio Ayoub on 04-06-2024 Urobilinogen (U) [Mass/Vol] 1 mg/dL High Normal [facility] White blood cell countOrdere d By: Lucio Ayoub on 04-06-2024 Urine WBC 10-25 SEEN /hpf 0-5 [facility] White blood cell count 10-25 SEEN /hpf 0-5 [facility] OT General Evaluationon OT General Evaluation [facility] Occupational Therapy [facility] [place] [address] / REHABILITATION SERVICES INITIAL EVALUATION MR#: [id number] Acct: [id number] Name: JAEL HUGGINS Rep #: [id number] : 1945 78 From: Blanca Britton Referring Dr.: Dr. Lucio Ayoub MD Status: REG R Insurance: [employer] MEDICARE Eval Date: MEDICAID [...] to a 10 when doing that Strength Tile Mechanic Helper: R 25# L 45# Lateral Pinch: R [...] Goals Goal:ROM equal to unaffected hand: Yes Goal:Tile Mechanic Helper/Pinch strength at least 75% of unaffected hand: Yes Goal:No pain with affected hand use: Yes Goal:Full use of affected hand in daily activities including work: Yes Goal:Improvement in sensation documented by [place] monofiliaments: Yes Comment: quick dash Other Goal: [...] to be FAXED BACK to us at [phone] for Medicare purposes. Please let me know if there are questions or concerns regarding this plan of care. Physician Signature: Date : 03/27/24 1501 CC: Dr. Lucio Ayoub MD CK Signed For Medicare only, by signing this I certify the plan of care. Physicians Signature Date Normal [facility] SP/HP.SPREEVon 03-01-2024 SP/HP.SPREEV [facility] Speech Pathology [facility] [address] [place] [address]. [address] [place] [address] / REEVALUATION / MEDICARE RECERTIFICATION SPEECH THERAPY MR#: [id number] Acct: [id number] Name: JAEL HUGGINS Rep #: [id number] : 1945 78 From: Myra Lowery M.S., [facility]-SALES SERVICE SUPERVISOR Referring Dr.: Dr. Lucio Ayoub MD Insurance: [employer] MEDICAID Visit History Visit Info Date of Eval: 10/12/23 Visit: 1 Patient's Approved Number of Visits: 30 Insurance Date Limit: 03/20/24 [employer] Accounts Manager: LUNA Martinez Attending Doctor: Referring Doctor: Reason for Referral: MILD COGNITIVE IMPAIRMENT/APHASIA. RX HERE Smoking Status: Never smoker Diagnosis Diagnosis: Mild-moderate cognitive-linguistic disorder Pain Is pain an issue with your current prescribed condition?: No Personal Preferred language: Indonesian Patient Allergies Allergies Allergies: Allergies No Known Allergies Allergy (Verified 01/03/24 10:33) Previous/Current Goals Goals 1-5 Previous Goal #1: Jael will demonstrate use of word finding strategies to complete complex convergent and divergent naming tasks with 80% acc across 3 measured opportunities when given fading cues. Goal 1 Status: GOAL MET - [place] categories: Foods 5/5, Drinks 5/5, Animals 9 [...] she could use the verb conjugated as "ate." This was the first time Jael showed [...] a mistak (more content not included)... Normal [facility] NCS and/or EMG Patienton NCS and/or EMG Patient [facility] Pulmonary Services/Neurology [address] [place] [address] MR#: [id number] Acct: [id number] Name: JAEL HUGGINS Rep #: [id number] : 1945 78 From: Rosario Cisneros MD Referring Dr: Ronnell Fontenot PAGarciaC Status: REG CLI Location: [facility] Date: 01/25/24 Sex: F C NCS and/or [...] Multi Select Codes Neurology Neurology Interp Codes: 27604-97 Musc test done w/n test comp (interp) and 74079-34 Nrv cndj test 7- 8 studies (interp) 01/25/24 1451 Date Rosario Cisneros MD CC: SUZETTE Fontenot; Dr. Rosario Cisneros MD; Dr. Lucio Ayoub MD Date Dictated: 01/25/24 144 Date Transcribed: 01/25/24 144 Health And Safety Instructor: CATRINA Signed Normal [facility] SP/HP.Lars 01-18-2024 SP/HP.[facility] Speech Pathology [address] [place] [id number] / REEVALUATION / MEDICARE RECERTIFICATION SPEECH THERAPY MR#: [id number] Acct: [id number] Name: JAEL HUGGINS Rep #: [id number] : 1945 78 From: Taylor De Anda Referring Dr.: Dr. Lucio Ayoub MD Insurance: [employer] MEDICAID Visit History Visit Info Date of Eval: 10/12/23 Visit: 1 Patient's Approved Number of Visits: 10 Insurance Date Limit: 03/20/24 [employer] Accounts Manager: MHOADLEY History Attending Doctor: Referring Doctor: Reason for [...] etc. Patient has made consistent progress towards assisted and short term goals, however will need [...] 78 year old female who presents to [facility] following a recent dx of [...] therapy on the Transitional Care Unit at [facility]. At the time of her [...] current prescribed condition?: No Personal Preferred language: Indonesian Patient Allergies Allergies Allergies: Allergies No Known Allergies Allergy (Verified 01/03/24 10:33) Previous/Current Goals Goals 1-5 Previous Goal #1: Jael will demonstrate use of word finding strategies to complete complex convergent and divergent naming tasks with 80% acc across 3 measured opportunities when given fading cues. Goal 1 Status: Goal Progressing: [place] categories divergent namin% accuracy given moderate verbal cues." Previous Goal #2: Jael will generate 3 sentences when given a target verb following WHO+verb+WHAT structure with 5/6 targets given min cues across 3 consecutively measured sessions Goal 2 Status: Goal Progressing: Generated first three sentences with WHO+verb+WHAT with 67% accuracy independently and improved to 100% accuracy with mod verbal and visual cues. " Previous Goal #3: Jael will generate 3 additional pieces of information answ (more content not included)... Normal [facility] Procedure Reporton 4 Procedure Report [facility] Medical Records Department [address] [place] [address] Procedure Report 01/03/24 1143 MR#: [id number] Acct: [id number] Name: JAEL HUGGINS Rep #: [id number] : 1945 78 From: Mi Fajardo COMPLIANCE MANAGER-C PCP: Dr. Lucio Ayoub MD Status:REG CLI Location: RAD Procedure Report Date of Procedure: 01/03/24 Assessment Plan Assessment/Plan (1) Mild cognitive impairment: PLAN: PROCEDURE: Fluoroscopic guided Lumbar Puncture. ORDERING PROVIDER: Dr. Ayoub CLINICAL INDICATION: Female, 78 years old. Mild cognitive impairment. PROVIDER: Mi Fajardo APRN-ANGIE MEDICATIONS: 2% lidocaine administered subcutaneously for local [...] lumbar puncture. Procedures Radiology Radiology Xray Procedures: 28065 Lumbar Puncture Dx Multi Select Codes Radiology Rad Xray Procedures: 03555-59 Fluoroscopic guidance for needle placement 01/03/24 1145 Cosigner Signature (if applicable): CC: COMPLIANCE MANAGERHakan Fajardo; Dr. Lucio Ayoub MD Signed Normal [facility] Laboratory - Microbiology an d Antimicrobial susceptibilityOrdered By: Lucio Ayoub on 06-29-2023 SARS-CoV-2 (COVID-19) RNA [place]+probe Ql (Unsp spec) [facility] Serum or plasma thyroid stim ulating hormone (TSH) measurement (units/volume)Ordered By: Lucio Ayoub on 06-09-2023 TSH Qn 3.69 uIU/mL 0.358-3.74 [facility] Absolute lymphocyte countOrd ered By: Lucio Ayoub on 04-25-2023 Lymphocytes Auto (Unsp spec) [#/Vol] 1.95 10*3/uL 0.83-4.51 [facility] Automated lymphocyte count a s percentage of total leukocytesOrdered By: Lucio Ayoub on 04-25-2023 Lymphocytes/100 WBC Auto (Unsp spec) 31.4 % 19-41 [facility] Basophil percentageOrdered B y: Lucio Ayoub on 04-25-2023 Basophils/100 WBC (Bld) 1.0 % 0-1 [facility] Bilirubin [Mass/Vol] 0.60 mg/dL 0.20-1.00 [facility] Comment on above: For patients on eltr ombopag therapy, use of [place] TBIL is not recommended. Chloride [Moles/Vol] 108 mmol/L 98-[address] [facility] Eosinophils/100 WBC (Bld) 1.6 % 0-5 [facility] Glucose [Mass/Vol] 101 mg/dL 74-106 [facility] Comment on above: Fasting Glucose resu lt from 100 to 125 mg/dL suggests IMPAIRED HOMEOSTASIS per A.D.A. criteria. Hemoglobin (Bld) [Mass/Vol] 13.8 g/dL 12.0-15.0 [facility] Monocytes/100 WBC (Bld) 6.1 % 0-10 [facility] Neutrophils (Bld) [#/Vol] 3.7 10*3/uL 2.0-7.7 [facility] Neutrophils/100 WBC (Bld) 59.7 % 47-70 [facility] Potassium [Moles/Vol] 3.9 mmol/L 3.5-5.1 [facility] Protein [Mass/Vol] 8.3 g/dL 6.4-8.2 [facility] Sodium [Moles/Vol] 140 mmol/L 136-145 [facility] WBC (Bld) [#/Vol] 6.2 10*3/uL 4.4-11.0 [facility] Determination of erythrocyte mean corpuscular volume (MCV)Ordered By: Lucio Ayoub on 04-25-2023 MCV (RBC) [Entitic vol] 91.4 fL 81-99 [facility] Erythrocyte distribution wid th ratioOrdered By: [facility] on 04-25-2023 Erythrocyte distribution width (RBC) [Ratio] 12.9 % 11.6-14.6 [facility] Erythrocyte distribution wid th standard deviationOrdered By: [facility] on 04-25-2023 Erythrocyte distribution width (RBC) [Entitic vol] 42.9 fL 35.1-43.9 [facility] Hematocrit Auto (Bld) [Volum e fraction]Ordered By: [facility] on 04-25-2023 Hematocrit (Bld) [Volume fraction] 42.5 % 37-47 [facility] Immature granulocytes/100 WB C Auto (Bld)Ordered By: [facility] on 04-25-2023 Immature granulocytes/100 WBC (Bld) 0.200 % 0.0-0.9 [facility] Comment on above: IG% - Immature Granu locytes (promyelocytes, myelocytes and metamyelocytes) > 1% indicates that a LEFT SHIFT is Present. Laboratory - Chemistry and C hemistry - challengeOrdered By: [facility] on 04-25-2023 Albumin/Globulin [Mass ratio] 0.9 {ratio} 0.9-2.4 [facility] ALP [Catalytic activity/Vol] 146 U/L 45-117 [facility] ALT [Catalytic activity/Vol] 40 U/L 13-56 [facility] CO2 [Moles/Vol] 23.0 mmol/L 21.0-32.0 [facility] Globulin (S) [Mass/Vol] 4.4 g/dL 2.2-4.2 [facility] Urea nitrogen/Creatinine [Mass ratio] 16.4 mg/mg 10-20 [facility] Laboratory - Hematology and Cell countsOrdered By: Lucio Mega 04-25-2023 MCH (RBC) [Entitic mass] 29.7 pg 27.0-32.0 [facility] MCHC (RBC) [Mass/Vol] 32.5 g/dL 32-36 [facility] Nucleated RBC/100 WBC (Bld) [Ratio] 0 % 0-5 [facility] Platelets (Bld) [#/Vol] 328 10*3/uL 150-450 [facility] No Panel InformationOrdered By: Lucio Ayoub on 04-25-2023 Estimated GFR (MDRD) Amer 83 mL/min >60 [facility] Comment on above: GFR Calc Estimated GFR (MDRD) Non-Af Amer 69 mL/min >60 [facility] Comment on above: Non- GFR Calc Vitamin D 25-Hydroxy 27.8 ng/mL [facility] Comment on above: Vitamin D 25(OH) Sta tus Range Deficiency <20 ng/mL (50nmol/L) Insufficiency 20 - 30 ng/mL (50 - 75 nmol/L) Sufficiency 30 - 100 ng/mL (75 - 250 nmol/L) Toxicity >100 ng/mL (>250 nmol/L) Platelet mean volume Abraham-Ec ker (Bld) [Entitic vol]Ordered By: Lucio Ayoub on 04-25-2023 Platelet mean volume (Bld) [Entitic vol] 10.2 fL 6.2-12.0 [facility] RBC Auto (Bld) [#/Vol]Ordere d By: Lucio Ayoub on 04-25-2023 RBC (Bld) [#/Vol] 4.65 10*6/uL 4.2-5.4 [facility] Serum or plasma calcium guy urement (mass/volume)Ordered By: Lucio Ayoub on 04-25-2023 Calcium [Mass/Vol] 9.8 mg/dL 8.5-10.1 [facility] Serum or plasma creatinine m easurement (mass/volume)Ordered By: Lucio Ayoub 04-25-2023 Creatinine [Mass/Vol] 0.85 mg/dL 0.55-1.02 [facility] Comment on above: The validity of the calculated GFR & GFRAA in patients over 70 years has not been determined. Clinical correlation is essential. Serum or plasma thyroid stim ulating hormone (TSH) measurement (units/volume)Ordered By: Lucio Ayoub on 04-25-2023 TSH Qn 31.60 uIU/mL 0.358-3.74 [facility] Serum or plasma urea nitroge n measurement (mass/volume)Ordered By: Lucio Ayoub 04-25-2023 Urea nitrogen [Mass/Vol] 14 mg/dL 7-18 [facility] Thin prep Papanicolaou smear with manual screeningOrdered By: Lucio Ayoub on 04-25-2023 Thin prep Papanicolaou smear with manual screening 3.9 g/dL 3.2-5.0 [facility] Thin prep Papanicolaou smear with manual screening 14 U/L 15-37 [facility] Thin prep Papanicolaou smear with manual screening 9 5-15 [facility] Absolute lymphocyte countOrd ered By: Dr. Ayoub on 04-19-2022 Lymphocytes Auto (Unsp spec) [#/Vol] 2.08 10*3/uL 0.83-4.51 [facility] Basophil percentageOrdered B y: Dr. Ayoub on 04-19-2022 Basophils/100 WBC (Bld) 0.4 % 0-1 [facility] Bilirubin [Mass/Vol] 0.30 mg/dL 0.20-1.[address] [facility] Comment on above: For patients on eltr ombopag therapy, use of [place] TBIL is not recommended. Chloride [Moles/Vol] 107 mmol/L 98-[address] [facility] Eosinophils/100 WBC (Bld) 1.9 % 0-5 [facility] Glucose [Mass/Vol] 92 mg/dL 74-106 [facility] Neutrophils (Bld) [#/Vol] 4.7 10*3/uL 2.0-7.7 [facility] Neutrophils/100 WBC (Bld) 62.0 % 47-70 [facility] Potassium [Moles/Vol] 3.7 mmol/L 3.5-5.1 [facility] Protein [Mass/Vol] 7.3 g/dL 6.4-8.2 [facility] Sodium [Moles/Vol] 141 mmol/L 136-145 [facility] WBC (Bld) [#/Vol] 7.5 10*3/uL 4.4-11.0 [facility] Blood erythrocytes count (nu mber/volume)Ordered By: Dr. Ayoub on 04-19-2022 RBC (Bld) [#/Vol] 4.56 10*6/uL 4.2-5.4 [facility] Blood hemoglobin measurement (mass/volume)Ordered By: Dr. Ayoub on 04-19-2022 Hemoglobin (Bld) [Mass/Vol] 13.4 g/dL 12.0-15.0 [facility] Blood lymphocytes/100 leukoc ytesOrdered By: Dr. Ayoub on 04-19-2022 Lymphocytes/100 WBC (Bld) 27.7 % 19-41 [facility] Blood monocytes/100 leukocyt esOrdered By: Dr. Ayoub on 04-19-2022 Monocytes/100 WBC (Bld) 7.7 % 0-10 [facility] Blood platelet mean volumeOr dered By: Dr. Ayoub on 04-19-2022 Platelet mean volume (Bld) [Entitic vol] 10.2 fL 6.2-12.0 [facility] Determination of erythrocyte mean corpuscular volume (MCV)Ordered By: Dr. Ayoub on 04-19-2022 MCV (RBC) [Entitic vol] 92.1 fL 81-99 [facility] Hematocrit Auto (Bld) [Volum e fraction]Ordered By: Dr. Ayoub on 04-19-2022 Hematocrit (Bld) [Volume fraction] 42.0 % 37-47 [facility] Laboratory - Chemistry and C hemistry - challengeOrdered By: Dr. Ayoub on 04-19-2022 ALP [Catalytic activity/Vol] 221 U/L 45-117 [facility] ALT [Catalytic activity/Vol] 48 U/L 13-56 [facility] CO2 [Moles/Vol] 23.0 mmol/L 21.0-32.0 [facility] Globulin (S) [Mass/Vol] 3.9 g/dL 2.2-4.2 [facility] Urea nitrogen/Creatinine [Mass ratio] 18.1 mg/mg 10-20 [facility] Laboratory - Hematology and Cell countsOrdered By: Dr. Ayoub on 04-19-2022 Erythrocyte distribution width (RBC) [Entitic vol] 44.7 fL 35.1-43.9 [facility] Erythrocyte distribution width (RBC) [Ratio] 13.2 % 11.6-14.6 [facility] Immature granulocytes/100 WBC (Bld) 0.300 % 0.0-0.9 [facility] Comment on above: IG% - Immature Granu locytes (promyelocytes, myelocytes and metamyelocytes) > 1% indicates that a LEFT SHIFT is Present. MCH (RBC) [Entitic mass] 29.4 pg 27.0-32.0 [facility] Nucleated RBC/100 WBC (Bld) [Ratio] 0 % 0-5 [facility] MCHC Auto (RBC) [Mass/Vol]Or dered By: Dr. Ayoub on 04-19-2022 MCHC (RBC) [Mass/Vol] 31.9 g/dL 32-36 [facility] No Panel InformationOrdered By: Dr. Ayoub on 04-19-2022 Estimated GFR (MDRD) Amer 102 mL/min >60 [facility] Comment on above: GFR Calc Estimated GFR (MDRD) Non-Af Amer 84 mL/min >60 [facility] Comment on above: Non- GFR Calc Thyroid Stimulating Hormone (TSH) 0.24 uIU/mL 0.358-3.74 [facility] Vitamin D 25-Hydroxy 30.4 ng/mL [facility] Comment on above: Vitamin D 25(OH) Sta tus Range Deficiency <20 ng/mL (50nmol/L) Insufficiency 20 - 30 ng/mL (50 - 75 nmol/L) Sufficiency 30 - 100 ng/mL (75 - 250 nmol/L) Toxicity >100 ng/mL (>250 nmol/L) Platelets bldOrdered By: Dr. Ayoub on 04-19-2022 Platelets (Bld) [#/Vol] 338 10*3/uL 150-450 [facility] Serum or plasma albumin guy urement (mass/volume)Ordered By: Dr. Ayoub on 04-19-2022 Albumin [Mass/Vol] 3.4 g/dL 3.2-5.0 [facility] Serum or plasma albumin/glob ulin mass ratioOrdered By: Dr. Ayoub on 04-19-2022 Albumin/Globulin [Mass ratio] 0.9 {ratio} 0.9-2.4 [facility] Serum or plasma calcium guy urement (mass/volume)Ordered By: Dr. Ayoub on 04-19-2022 Calcium [Mass/Vol] 9.4 mg/dL 8.5-10.1 [facility] Serum or plasma creatinine m easurement (mass/volume)Ordered By: Dr. Ayoub on 04-19-2022 Creatinine [Mass/Vol] 0.72 mg/dL 0.55-1.02 [facility] Comment on above: The validity of the calculated GFR & GFRAA in patients over 70 years has not been determined. Clinical correlation is essential. Serum or plasma urea nitroge n measurement (mass/volume)Ordered By: Dr. Ayoub on 04-19-2022 Urea nitrogen [Mass/Vol] 13 mg/dL 7-18 [facility] Thin prep Papanicolaou smear with manual screeningOrdered By: Dr. Ayoub on 04-19-2022 Thin prep Papanicolaou smear with manual screening 29 U/L 15-37 [facility] Thin prep Papanicolaou smear with manual screening 11 5-15 [facility] Microbial respiratory cultur eOrdered By: Dr. Ayoub on 02-21-2022 Bacteria identified Respiratory culture Nom (Unsp spec) [facility] Gram stain for investigation of transfusion reactionOrdered By: Dr. Ayoub on 02-19-2022 Microscopic observation Gram stain Nom (Unsp spec) [facility] Absolute lymphocyte countOrd ered By: Dr. Ayoub on 02-16-2022 Lymphocytes Auto (Unsp spec) [#/Vol] 1.24 10*3/uL 0.83-4.51 [facility] Basophil percentageOrdered B y: Dr. Ayoub on 02-16-2022 Basophils/100 WBC (Bld) 1.1 % 0-1 [facility] Chloride [Moles/Vol] 108 mmol/L 98-[address] [facility] Eosinophils/100 WBC (Bld) 3.8 % 0-5 [facility] Glucose [Mass/Vol] 94 mg/dL 74-106 [facility] Neutrophils (Bld) [#/Vol] 1.7 10*3/uL 2.0-7.7 [facility] Neutrophils/100 WBC (Bld) 47.3 % 47-70 [facility] Potassium [Moles/Vol] 3.6 mmol/L 3.5-5.1 [facility] Sodium [Moles/Vol] 139 mmol/L 136-145 [facility] WBC (Bld) [#/Vol] 3.7 10*3/uL 4.4-11.0 [facility] Blood erythrocytes count (nu mber/volume)Ordered By: Dr. Ayoub on 02-16-2022 RBC (Bld) [#/Vol] 3.49 10*6/uL 4.2-5.4 [facility] Blood hemoglobin measurement (mass/volume)Ordered By: Dr. Ayoub on 02-16-2022 Hemoglobin (Bld) [Mass/Vol] 10.5 g/dL 12.0-15.0 [facility] Blood lymphocytes/100 leukoc ytesOrdered By: Dr. Ayoub on 02-16-2022 Lymphocytes/100 WBC (Bld) 33.9 % 19-41 [facility] Blood monocytes/100 leukocyt esOrdered By: Dr. Ayoub on 02-16-2022 Monocytes/100 WBC (Bld) 13.4 % 0-10 [facility] Blood platelet mean volumeOr dered By: Dr. Ayoub on 02-16-2022 Platelet mean volume (Bld) [Entitic vol] 9.3 fL 6.2-12.0 [facility] Determination of erythrocyte mean corpuscular volume (MCV)Ordered By: Dr. Ayoub on 02-16-2022 MCV (RBC) [Entitic vol] 96.0 fL 81-99 [facility] Hematocrit Auto (Bld) [Volum e fraction]Ordered By: Dr. Ayoub on 02-16-2022 Hematocrit (Bld) [Volume fraction] 33.5 % 37-47 [facility] Laboratory - Chemistry and C hemistry - challengeOrdered By: Dr. Ayoub on 02-16-2022 CO2 [Moles/Vol] 26.0 mmol/L 21.0-32.0 [facility] Urea nitrogen/Creatinine [Mass ratio] 21.5 mg/mg 10-20 [facility] Laboratory - Hematology and Cell countsOrdered By: Dr. Ayoub on 02-16-2022 Erythrocyte distribution width (RBC) [Entitic vol] 55.8 fL 35.1-43.9 [facility] Erythrocyte distribution width (RBC) [Ratio] 15.8 % 11.6-14.6 [facility] Immature granulocytes/100 WBC (Bld) 0.500 % 0.0-0.9 [facility] Comment on above: IG% - Immature Granu locytes (promyelocytes, myelocytes and metamyelocytes) > 1% indicates that a LEFT SHIFT is Present. MCH (RBC) [Entitic mass] 30.1 pg 27.0-32.0 [facility] Nucleated RBC/100 WBC (Bld) [Ratio] 0 % 0-5 [facility] MCHC Auto (RBC) [Mass/Vol]Or dered By: Dr. Ayoub on 02-16-2022 MCHC (RBC) [Mass/Vol] 31.3 g/dL 32-36 [facility] No Panel InformationOrdered By: Dr. Ayoub on 02-16-2022 Estimated Creatinine Clearance Calc 44.80 ml/min [facility] Estimated GFR (MDRD) Amer 136 mL/min >60 [facility] Comment on above: GFR Calc Estimated GFR (MDRD) Non-Af Amer 112 mL/min >60 [facility] Comment on above: Non- GFR Calc Platelets bldOrdered By: Dr. Ayoub on 02-16-2022 Platelets (Bld) [#/Vol] 395 10*3/uL 150-450 [facility] Serum or plasma calcium guy urement (mass/volume)Ordered By: Dr. Ayoub on 02-16-2022 Calcium [Mass/Vol] 9.2 mg/dL 8.5-10.1 [facility] Serum or plasma creatinine m easurement (mass/volume)Ordered By: Dr. Ayoub on 02-16-2022 Creatinine [Mass/Vol] 0.56 mg/dL 0.55-1.02 [facility] Comment on above: The validity of the calculated GFR & GFRAA in patients over 70 years has not been determined. Clinical correlation is essential. Serum or plasma urea nitroge n measurement (mass/volume)Ordered By: Dr. Ayoub on 02-16-2022 Urea nitrogen [Mass/Vol] 12 mg/dL 7-18 [facility] Thin prep Papanicolaou smear with manual screeningOrdered By: Dr. Ayoub on 02-16-2022 Thin prep Papanicolaou smear with manual screening 5 5-15 [facility] Absolute lymphocyte counton 02-09-2022 Lymphocytes Auto (Unsp spec) [#/Vol] 1.54 10*3/uL 0.83-4.51 [facility] Work Phone: Basophil percentageon 2021 Basophils/100 WBC (Bld) 0.9 % 0-1 [facility] Work Phone: Chloride [Moles/Vol] 108 mmol/L 98-107 [facility] Work Phone: Eosinophils/100 WBC (Bld) 2.2 % 0-5 [facility] Work Phone: Glucose [Mass/Vol] 100 mg/dL 74-106 [facility] Work Phone: Comment on above: Fasting Glucose resu lt from 100 to 125 mg/dL suggests IMPAIRED HOMEOSTASIS per A.D.A. criteria. Neutrophils (Bld) [#/Vol] 3.2 10*3/uL 2.0-7.7 [facility] Work Phone: Neutrophils/100 WBC (Bld) 59.5 % 47-70 [facility] Work Phone: Potassium [Moles/Vol] 3.7 mmol/L 3.5-5.1 [facility] Work Phone: Sodium [Moles/Vol] 139 mmol/L 136-145 [facility] Work Phone: WBC (Bld) [#/Vol] 5.4 10*3/uL 4.4-11.0 [facility] Work Phone: Blood erythrocytes count (nu mber/volume)on 02-09-2022 RBC (Bld) [#/Vol] 3.23 10*6/uL 4.2-5.4 [facility] Work Phone: Blood hemoglobin measurement (mass/volume)on 02-09-2022 Hemoglobin (Bld) [Mass/Vol] 9.8 g/dL 12.0-15.0 [facility] Work Phone: Blood lymphocytes/100 leukoc yteson 02-09-2022 Lymphocytes/100 WBC (Bld) 28.6 % 19-41 [facility] Work Phone: Blood monocytes/100 leukocyt eson 02-09-2022 Monocytes/100 WBC (Bld) 8.2 % 0-10 [facility] Work Phone: Blood platelet mean volumeon 02-09-2022 Platelet mean volume (Bld) [Entitic vol] 9.1 fL 6.2-12.0 [facility] Work Phone: Determination of erythrocyte mean corpuscular volume (MCV)on 02-09-2022 MCV (RBC) [Entitic vol] 91.6 fL 81-99 [facility] Work Phone: Hematocrit Auto (Bld) [Volum e fraction]on 02-09-2022 Hematocrit (Bld) [Volume fraction] 29.6 % 37-47 [facility] Work Phone: Laboratory - Chemistry and C hemistry - challengeon 02-09-2022 CO2 [Moles/Vol] 27.0 mmol/L 21.0-32.0 [facility] Work Phone: Urea nitrogen/Creatinine [Mass ratio] 20.0 mg/mg 10-20 [facility] Work Phone: [phone] Laboratory - Hematology and Cell countson 02-09-2022 Erythrocyte distribution width (RBC) [Entitic vol] 51.8 fL 35.1-43.9 [facility] Work Phone: [phone] Erythrocyte distribution width (RBC) [Ratio] 15.8 % 11.6-14.6 [facility] Work Phone: Immature granulocytes/100 WBC (Bld) 0.600 % 0.0-0.9 [facility] Work Phone: Comment on above: IG% - Immature Granu locytes (promyelocytes, myelocytes and metamyelocytes) > 1% indicates that a LEFT SHIFT is Present. MCH (RBC) [Entitic mass] 30.3 pg 27.0-32.0 [facility] Work Phone: Nucleated RBC/100 WBC (Bld) [Ratio] 0 % 0-5 [facility] Work Phone: MCHC Auto (RBC) [Mass/Vol]on 02-09-2022 MCHC (RBC) [Mass/Vol] 33.1 g/dL 32-36 [facility] Work Phone: No Panel Informationon 02-09 Estimated Creatinine Clearance Calc 44.80 ml/min [facility] Work Phone: Estimated GFR (MDRD) Amer 138 mL/min >60 [facility] Work Phone: Comment on above: GFR Calc Estimated GFR (MDRD) Non-Af Amer 114 mL/min >60 [facility] Work Phone: Comment on above: Non- GFR Calc Platelets bldon 02-09-2022 Platelets (Bld) [#/Vol] 404 10*3/uL 150-450 [facility] Work Phone: Serum or plasma calcium guy urement (mass/volume)on 02-09-2022 Calcium [Mass/Vol] 9.0 mg/dL 8.5-10.1 [facility] Work Phone: Serum or plasma creatinine m easurement (mass/volume)on 02-09-2022 Creatinine [Mass/Vol] 0.55 mg/dL 0.55-1.02 [facility] Work Phone: Comment on above: The validity of the calculated GFR & GFRAA in patients over 70 years has not been determined. Clinical correlation is essential. Serum or plasma urea nitroge n measurement (mass/volume)on 02-09-2022 Urea nitrogen [Mass/Vol] 11 mg/dL 7-18 [facility] Work Phone: Thin prep Papanicolaou smear with manual screeningon 02-09-2022 Thin prep Papanicolaou smear with manual screening 4 5-15 [facility] Work Phone: [phone] Absolute lymphocyte countOrd ered By: Dr. Crawford on 02-01-2022 Lymphocytes Auto (Unsp spec) [#/Vol] 1.61 10*3/uL 0.83-4.51 [facility] Basophil percentageOrdered B y: Dr. Crawford on 02-01-2022 Basophils/100 WBC (Bld) 0.4 % 0-1 [facility] Eosinophils/100 WBC (Bld) 1.7 % 0-5 [facility] Neutrophils (Bld) [#/Vol] 6.1 10*3/uL 2.0-7.7 [facility] Neutrophils/100 WBC (Bld) 67.2 % 47-70 [facility] WBC (Bld) [#/Vol] 9.1 10*3/uL 4.4-11.0 [facility] Basophil percentageOrdered B y: Dr. Saleem on 02-01-2022 Bilirubin [Mass/Vol] 0.50 mg/dL 0.20-1.[address] [facility] Comment on above: For patients on eltr ombopag therapy, use of [place] TBIL is not recommended. Chloride [Moles/Vol] 108 mmol/L 98-[address] [facility] Glucose [Mass/Vol] 102 mg/dL 74-106 [facility] Comment on above: Fasting Glucose resu lt from 100 to 125 mg/dL suggests IMPAIRED HOMEOSTASIS per A.D.A. criteria. Potassium [Moles/Vol] 4.2 mmol/L 3.5-5.1 [facility] Protein [Mass/Vol] 5.1 g/dL 6.4-8.2 [facility] Sodium [Moles/Vol] 140 mmol/L 136-145 [facility] Blood erythrocytes count (nu mber/volume)Ordered By: Dr. Crawford on 02-01-2022 RBC (Bld) [#/Vol] 3.01 10*6/uL 4.2-5.4 [facility] Blood hemoglobin measurement (mass/volume)Ordered By: Dr. Crawford on 02-01-2022 Hemoglobin (Bld) [Mass/Vol] 8.9 g/dL 12.0-15.0 [facility] Blood lymphocytes/100 leukoc ytesOrdered By: Dr. Crawford on 02-01-2022 Lymphocytes/100 WBC (Bld) 17.8 % 19-41 [facility] Blood monocytes/100 leukocyt esOrdered By: Dr. Crawford on 02-01-2022 Monocytes/100 WBC (Bld) 11.7 % 0-10 [facility] Blood platelet mean volumeOr dered By: Dr. Crawford on 02-01-2022 Platelet mean volume (Bld) [Entitic vol] 10.0 fL 6.2-12.0 [facility] COVID-19 virus antigen assay Ordered By: Dr. Crawford on 02-01-2022 SARS-CoV-2 (COVID-19) Ag IA.rapid Ql (Resp) [facility] Determination of erythrocyte mean corpuscular volume (MCV)Ordered By: Dr. Crawford on 02-01-2022 MCV (RBC) [Entitic vol] 89.0 fL 81-99 [facility] Hematocrit Auto (Bld) [Volum e fraction]Ordered By: Dr. Crawford on 02-01-2022 Hematocrit (Bld) [Volume fraction] 26.8 % 37-47 [facility] Laboratory - Chemistry and C hemistry - challengeOrdered By: Dr. Saleem on 02-01-2022 ALP [Catalytic activity/Vol] 94 U/L 45-117 [facility] ALT [Catalytic activity/Vol] 21 U/L 13-56 [facility] CO2 [Moles/Vol] 28.0 mmol/L 21.0-32.0 [facility] Globulin (S) [Mass/Vol] 2.7 g/dL 2.2-4.2 [facility] Urea nitrogen/Creatinine [Mass ratio] 18.8 mg/mg 10-20 [facility] Laboratory - Hematology and Cell countsOrdered By: Dr. Crawford on 02-01-2022 Erythrocyte distribution width (RBC) [Entitic vol] 43.7 fL 35.1-43.9 [facility] Erythrocyte distribution width (RBC) [Ratio] 13.4 % 11.6-14.6 [facility] [facility] Immature granulocytes/100 WBC (Bld) 1.200 % 0.0-0.9 [facility] Comment on above: IG% - Immature Granu locytes (promyelocytes, myelocytes and metamyelocytes) > 1% indicates that a LEFT SHIFT is Present. MCH (RBC) [Entitic mass] 29.6 pg 27.0-32.0 [facility] Nucleated RBC/100 WBC (Bld) [[facility]] 0.4 % 0-5 [facility] [Mass/Vol]Or dered By: Dr. Crawford on 02-01-2022 MCHC (RBC) [Mass/Vol] 33.2 g/dL 32-36 [facility] No Panel InformationOrdered By: Dr. Saleem on 02-01-2022 Estimated Creatinine Clearance Calc 44.80 ml/min [facility] Estimated GFR (MDRD) Amer 106 mL/min >60 [facility] Comment on above: GFR Calc Estimated GFR (MDRD) Non-Af Amer 87 mL/min >60 [facility] Comment on above: Non- GFR Calc Platelets bldOrdered By: Dr. Crawford on 02-01-2022 Platelets (Bld) [#/Vol] 202 10*3/uL 150-450 [facility] Serum or plasma albumin guy urement (mass/volume)Ordered By: Dr. Saleem on 02-01-2022 Albumin [Mass/Vol] 2.4 g/dL 3.2-5.0 [facility] Serum or plasma albumin/glob ulin mass ratioOrdered By: Dr. Saleem on 02-01-2022 Albumin/Globulin [Mass ratio] 0.9 {ratio} 0.9-2.4 [facility] Serum or plasma calcium guy urement (mass/volume)Ordered By: Dr. Saleem on 02-01-2022 Calcium [Mass/Vol] 8.8 mg/dL 8.5-10.1 [facility] Serum or plasma creatinine m easurement (mass/volume)Ordered By: Dr. Saleem on 02-01-2022 Creatinine [Mass/Vol] 0.69 mg/dL 0.55-1.02 [facility] Comment on above: The validity of the calculated GFR & GFRAA in patients over 70 years has not been determined. Clinical correlation is essential. Serum or plasma urea nitroge n measurement (mass/volume)Ordered By: Dr. Saleem on 02-01-2022 Urea nitrogen [Mass/Vol] 13 mg/dL 7-18 [facility] Thin prep Papanicolaou smear with manual screeningOrdered By: Dr. Saleem on 02-01-2022 Thin prep Papanicolaou smear with manual screening 27 U/L 15-37 [facility] Thin prep Papanicolaou smear with manual screening 4 5-15 [facility] Hemoglobin in reticulocytes (mass per reticulocyte)Ordered By: Dr. Saleem on 01-31-2022 Hemoglobin (Reticulocytes) [Entitic mass] 31.8 pg 30-35 [facility] Iron measurement (mass/mass) Ordered By: Dr. Saleem on 01-31-2022 Iron (Unsp spec) [Mass/Mass] 48 ug/dL 50-170 [facility] No Panel InformationOrdered By: Dr. Saleem on 01-31-2022 Immature Reticulocyte Fraction 11.90 % 3.00-15.90 [facility] Reticulocyte Count 2.09 % 0.5-1.5 [facility] Total Iron Binding Capacity 385 ug/dL 250-450 [facility] Serum or plasma ferritin miguel surement (mass/volume)Ordered By: Dr. Saleem on 01-31-2022 Ferritin [Mass/Vol] 122 ng/mL 8-252 [facility] Serum or plasma iron saturat ion measurement (mass fraction)Ordered By: Dr. Saleem on 01-31-2022 Iron saturation [Mass fraction] 12.5 % 15.0-55.0 [facility] Absolute lymphocyte counton 01-29-2022 Lymphocytes Auto (Unsp spec) [#/Vol] 1.51 10*3/uL 0.83-4.51 [facility] Work Phone: Basophil percentageon 2021 Potassium [Moles/Vol] 4.2 mmol/L 3.5-5.1 [facility] Work Phone: Comment on above: Slight Hemolysis, Re sult may be falsely increased. Basophils/100 WBC (Bld) 0.5 % 0-1 [facility] Work Phone: Bilirubin [Mass/Vol] 0.50 mg/dL 0.20-1.[address] [facility] Work Phone: Comment on above: For patients on eltr ombopag therapy, use of Dimension [place] TBIL is not recommended. Chloride [Moles/Vol] 106 mmol/L 98-[address] [facility] Work Phone: Eosinophils/100 WBC (Bld) 1.6 % 0-5 [facility] Work Phone: Glucose [Mass/Vol] 104 mg/dL 74-106 [facility] Work Phone: Comment on above: Fasting Glucose resu lt from 100 to 125 mg/dL suggests IMPAIRED HOMEOSTASIS per A.D.A. criteria. Neutrophils (Bld) [#/Vol] 5.9 10*3/uL 2.0-7.7 [facility] Work Phone: Neutrophils/100 WBC (Bld) 73.1 % 47-70 [facility] Work Phone: Protein [Mass/Vol] 6.3 g/dL 6.4-8.2 [facility] Work Phone: Sodium [Moles/Vol] 139 mmol/L 136-145 [facility] Work Phone: WBC (Bld) [#/Vol] 8.0 10*3/uL 4.4-11.0 [facility] Work Phone: Blood erythrocytes count (nu mber/volume)on 01-29-2022 RBC (Bld) [#/Vol] 4.29 10*6/uL 4.2-5.4 [facility] Work Phone: Blood hemoglobin measurement (mass/volume)on 01-29-2022 Hemoglobin (Bld) [Mass/Vol] 12.3 g/dL 12.0-15.0 [facility] Work Phone: Blood lymphocytes/100 leukoc yteson 01-29-2022 Lymphocytes/100 WBC (Bld) 18.8 % 19-41 [facility] Work Phone: Blood monocytes/100 leukocyt eson 01-29-2022 Monocytes/100 WBC (Bld) 5.6 % 0-10 [facility] Work Phone: Blood platelet mean volumeon 01-29-2022 Platelet mean volume (Bld) [Entitic vol] 10.3 fL 6.2-12.0 [facility] Work Phone: Determination of erythrocyte mean corpuscular volume (MCV)on 01-29-2022 MCV (RBC) [Entitic vol] 89.3 fL 81-99 [facility] Work Phone: Hematocrit Auto (Bld) [Volum e fraction]on 01-29-2022 Hematocrit (Bld) [Volume fraction] 38.3 % 37-47 [facility] Work Phone: INR in Blood by Coagulation assayOrdered By: Dr. Bliss on 01-29-2022 INR Coag (Bld) [Relative time] 1.0 {INR} [facility] Laboratory - Chemistry and C hemistry - challengeon 01-29-2022 ALP [Catalytic activity/Vol] 131 U/L 45-117 [facility] Work Phone: ALT [Catalytic activity/Vol] 35 U/L 13-56 [facility] Work Phone: CO2 [Moles/Vol] 23.0 mmol/L 21.0-32.0 [facility] Work Phone: Globulin (S) [Mass/Vol] 3.0 g/dL 2.2-4.2 [facility] Work Phone: Urea nitrogen/Creatinine [Mass ratio] 17.2 mg/mg 10-20 [facility] Work Phone: Laboratory - CoagulationOrde red By: Dr. Bliss on 01-29-2022 aPTT Coag (Bld) [Time] 25.6 s 24.1-36.2 [facility] PT Coag (PPP) [Time] 12.5 s 11.7-14.[address] [facility] Laboratory - Hematology and Cell countson 01-29-2022 Erythrocyte distribution width (RBC) [Entitic vol] 42.6 fL 35.1-43.9 [facility] Work Phone: [phone] Erythrocyte distribution width (RBC) [Ratio] 13.0 % 11.6-14.6 [facility] Work Phone: [phone] Immature granulocytes/100 WBC (Bld) 0.400 % 0.0-0.9 [facility] Work Phone: [phone] Comment on above: IG% - Immature Granu locytes (promyelocytes, myelocytes and metamyelocytes) > 1% indicates that a LEFT SHIFT is Present. MCH (RBC) [Entitic mass] 28.7 pg 27.0-32.0 [facility] Work Phone: [phone] Nucleated RBC/100 WBC (Bld) [Ratio] 0 % 0-5 [facility] Work Phone: [phone] MCHC Auto (RBC) [Mass/Vol]on 01-29-2022 MCHC (RBC) [Mass/Vol] 32.1 g/dL 32-36 [facility] Work Phone: [phone] No Panel InformationOrdered By: Dr. Quinn on 01-29-2022 Troponin I High Sensitivity 6 pg/mL 3.0-54.0 [facility] Comment on above: Please Note: New [place] t Units and Gender Specific Reference Ranges. For more information see Policy Stat Procedure [place] High Sensitivity Troponin (TNIH) and attachments. No Panel Informationon 01-29 Estimated Creatinine Clearance Calc 55.31 ml/min [facility] Work Phone: [phone] Estimated GFR (MDRD) Amer 88 mL/min >60 [facility] Work Phone: [phone] Comment on above: GFR Calc Estimated GFR (MDRD) Non-Af Amer 73 mL/min >60 [facility] Work Phone: [phone] Comment on above: Non- GFR Calc Platelets bldon 01-29-2022 Platelets (Bld) [#/Vol] 248 10*3/uL 150-450 [facility] Work Phone: [phone] Serum or plasma albumin guy urement (mass/volume)on 01-29-2022 Albumin [Mass/Vol] 3.3 g/dL 3.2-5.0 [facility] Work Phone: Serum or plasma albumin/glob ulin mass ratioon 01-29-2022 Albumin/Globulin [Mass ratio] 1.1 {ratio} 0.9-2.4 [facility] Work Phone: Serum or plasma calcium guy urement (mass/volume)on 01-29-2022 Calcium [Mass/Vol] 8.1 mg/dL 8.5-10.1 [facility] Work Phone: [phone] Serum or plasma creatinine m easurement (mass/volume)on 01-29-2022 Creatinine [Mass/Vol] 0.81 mg/dL 0.55-1.02 [facility] Work Phone: Comment on above: The validity of the calculated GFR & GFRAA in patients over 70 years has not been determined. Clinical correlation is essential. Serum or plasma urea nitroge n measurement (mass/volume)on 01-29-2022 Urea nitrogen [Mass/Vol] 14 mg/dL 7-18 [facility] Work Phone: Thin prep Papanicolaou smear with manual screeningon 01-29-2022 Thin prep Papanicolaou smear with manual screening 24 U/L 15-37 [facility] Work Phone: Thin prep Papanicolaou smear with manual screening 10 5-15 [facility] Work Phone: Laboratory - Microbiology an d Antimicrobial susceptibilityon 07-28-2021 SARS-CoV-2 (COVID-19) RNA [place]+probe Ql (Unsp spec) Detected [facility] Work Phone: No Panel Informationon 07-28 Influenza Types A,B Rapid (Clinic) Not detected [facility] Work Phone: No Panel Informationon 03-26 SARS-CoV-2 Antigen (Rapid) [facility] Work Phone: No Panel Informationon 02-27 SARS-CoV-2 Antigen (Rapid) [facility] Work Phone: [phone] CNPTOUTREACHon 05-13-2020 CNPTOUTREACH Patient Outreach ([facility]) JAEL HUGGINS ([id number]) 1945 F Date Time Provider Department 05/13/20 ANTHONY DUONG During your visit today, we recorded the following information about you: Allergies As of Date: 05/13/2020 Noted Allergy Reaction SEASONAL ALLERGIES 03/24/2018 14 - Other: See Comments Comments: Sneeze, cough, watey eyes Date Reviewed: Never Reviewed Order(s):SARS-COVID VACCINE 1ST DOSE APPT [[id number]] Order #: [id number] FUTURE Prescriptions as of 05/13/2020 Sig: LEVOTHYROXINE 75 MCG CAPSULE Take 75 mcg by mouth once darron* Problem List As Of Date: 05/13/2020 (None) Letter Text Encounter Status:Closed by [employer] on 05/16/[address] [facility] COVID-19 virus antigen assay SARS-CoV-2 (COVID-19) Ag IA.rapid Ql (Resp) [facility] Work Phone: Gram stain for investigation of transfusion reaction Microscopic observation Gram stain Nom (Unsp spec) [facility] Work Phone: Vital Signs Date Time Vital Sign Value Performing Clinician Myai lity 09-26-2024 12:27-0400 Body temperature 98 [degF] Dr. Lucio Ayoub MD Work Phone: [facility] 09-26-2024 12:27-0400 Diastolic blood pressure 78 mm[Hg] Dr. Lucio Ayoub MD Work Phone: [facility] 09-26-2024 12:27-0400 Heart rate 88 /min Dr. Lucio Ayoub MD Work Phone: [facility] 09-26-2024 12:27-0400 Respiratory rate 16 /min Dr. Lucio Ayoub MD Work Phone: [facility] 09-26-2024 12:27-0400 SaO2% (BldA) [Mass fraction] 96 % Dr. Lucio Ayoub MD Work Phone: [phone] [place] [address] 09-26-2024 12:27-0400 Systolic blood pressure 148 mm[Hg] Dr. Lucio Ayoub MD Work Phone: [phone] [place] [address] 09-26-2024 04:12-0400 Body mass index (BMI) [Ratio] 26.1 kg/m2 Dr. Lucio Ayoub MD Work Phone: [phone])779-113729 [place] [address] 09-26-2024 04:12-0400 Body weight 73.[address] Lucio Ayoub MD Work Phone: [phone] [place] [address] 09-24-2024 17:00-0400 Inhaled oxygen flow rate 2 L/min Dr. Lucio Ayoub MD Work Phone: [phone])092-474532 [place] [address] 09-23-2024 03:57-0400 Body height 167.[address] Lucio Ayoub MD Work Phone: [phone])826-724032 [place] [address] 09-23-2024 03:00-0400 Body temperature 97.5 [degF] Dr. Lucio Ayoub MD Work Phone: [phone])104-259232 [place] [address] 09-23-2024 03:00-0400 Diastolic blood pressure 69 mm[Hg] Dr. Lucio Ayoub MD Work Phone: [phone])852-853729 [place] [address] 09-23-2024 03:00-0400 Heart rate 92 /min Dr. Lucio Ayoub MD Work Phone: [phone] [place] [address] 09-23-2024 03:00-0400 Respiratory rate 16 /min Dr. Lucio Ayoub MD Work Phone: [phone])870-533132 [place] [address] 09-23-2024 03:00-0400 SaO2% (BldA) [Mass fraction] 98 % Dr. Lucio Ayoub MD Work Phone: [phone])560-599729 [place] [address] 09-23-2024 03:00-0400 Systolic blood pressure 143 mm[Hg] Dr. Lucoi Ayoub MD Work Phone: [facility] 09-23-2024 00:28-0400 Body height [address] Lucio Ayoub MD Work Phone: [facility] 09-23-2024 00:28-0400 Body mass index (BMI) [Ratio] 25.9 kg/m2 Dr. Lucio Ayoub MD Work Phone: [facility] 09-23-2024 00:28-0400 Body weight 73.[address] Lucio Ayoub MD Work Phone: [facility] 08-01-2024 09:53-0400 Body height 167.[address] Lucio Ayoub MD Work Phone: [facility] 08-01-2024 09:53-0400 Body mass index (BMI) [Ratio] 25.8 kg/m2 Dr. Lucio Ayoub MD Work Phone: [facility] 08-01-2024 09:53-0400 Body weight 72.[address] Lucio Ayoub MD Work Phone: [facility] 06-02-2023 08:56-0400 Body height 162.56 cm [facility] 06-02-2023 08:56-0400 Body temperature 96.9 [degF] [facility] 06-02-2023 08:56-0400 Diastolic blood pressure 79 mm[Hg] [facility] 06-02-2023 08:56-0400 Heart rate 83 /min [facility] 06-02-2023 08:56-0400 Respiratory rate 14 /min [facility] 06-02-2023 08:56-0400 SaO2% (BldA) [Mass fraction] 99 % [facility] 06-02-2023 08:56-0400 Systolic blood pressure 151 mm[Hg] [facility] 02-20-2022 14:00-0500 Body temperature 98.7 [degF] Dr. Lucio Ayoub Work Phone: [facility] 02-20-2022 14:00-0500 Diastolic blood pressure 60 mm[Hg] Dr. Lucio Ayoub Work Phone: [facility] 02-20-2022 14:00-0500 Heart rate 87 /min Dr. Lucio Ayoub Work Phone: [facility] 02-20-2022 14:00-0500 Respiratory rate 18 /min Dr. Lucio Ayoub Work Phone: [facility] 02-20-2022 14:00-0500 SaO2% (BldA) [Mass fraction] 95 % Dr. Lucio Ayoub Work Phone: [facility] 02-20-2022 14:00-0500 Systolic blood pressure 153 mm[Hg] Dr. Lucio Ayoub Work Phone: [facility] 02-17-2022 15:21-0500 Body height 167.[address] Lucio Ayoub Work Phone: [facility] 02-17-2022 15:21-0500 Body weight 70.[address] Lucio Ayoub Work Phone: [facility] 02-15-2022 13:35-0500 Body temperature 98.2 [degF] Dr. Lucio Ayoub Work Phone: [facility] Work Phone: 02-15-2022 13:35-0500 Diastolic blood pressure 55 mm[Hg] Dr. Lucio Ayoub Work Phone: [facility] Work Phone: 02-15-2022 13:35-0500 Heart rate 71 /min Dr. Lucio Ayoub Work Phone: [facility] Work Phone: 02-15-2022 13:35-0500 Respiratory rate 18 /min Dr. Lucio Ayoub Work Phone: [facility] Work Phone: 02-15-2022 13:35-0500 SaO2% (BldA) [Mass fraction] 96 % Dr. Lucio Ayoub Work Phone: [facility] Work Phone: 02-15-2022 13:35-0500 Systolic blood pressure 132 mm[Hg] Dr. Lucio Ayoub Work Phone: [facility] Work Phone: 02-10-2022 15:02-0500 Body height 167.[address] Lucio Ayoub Work Phone: [facility] Work Phone: 02-10-2022 15:02-0500 Body weight 71.[address] Lucio Ayoub Work Phone: [facility] Work Phone: 02-01-2022 16:27-0500 Body temperature 98.4 [degF] Dr. Lucio Ayoub Work Phone: [facility] 02-01-2022 16:27-0500 Diastolic blood pressure 90 mm[Hg] Dr. Lucio Ayoub Work Phone: [facility] 02-01-2022 16:27-0500 Heart rate 101 /min Dr. Lucio Ayoub Work Phone: [facility] 02-01-2022 16:27-0500 Respiratory rate 16 /min Dr. Lucio Ayoub Work Phone: [facility] 02-01-2022 16:27-0500 SaO2% (BldA) [Mass fraction] 95 % Dr. Lucio Ayoub Work Phone: [facility] 02-01-2022 16:27-0500 Systolic blood pressure 145 mm[Hg] Dr. Lucio Ayoub Work Phone: [facility] 02-01-2022 14:57-0500 Inhaled oxygen flow rate 2 L/min Dr. Lucio Ayoub Work Phone: [facility] 02-01-2022 05:22-0500 Body weight 78.[address] Lucio Ayoub Work Phone: [facility] 01-29-2022 18:12-0500 Body mass index (BMI) [Ratio] 29.9 kg/m2 Dr. Lucio Ayoub Work Phone: [facility] 01-29-2022 12:11-0500 Body height 167.[address] Lucio Ayoub Work Phone: [facility] Work Phone: 01-29-2022 12:11-0500 Body mass index (BMI) [Ratio] 29.9 kg/m2 Dr. Lucio Ayoub Work Phone: [facility] Work Phone: 01-29-2022 12:11-0500 Body temperature 97 [degF] Dr. Lucio Ayoub Work Phone: [facility] Work Phone: 01-29-2022 12:11-0500 Body weight 84.[address] Lucio Ayoub Work Phone: [facility] Work Phone: 01-29-2022 12:11-0500 Heart rate 89 /min Dr. Lucio Ayoub Work Phone: [facility] Work Phone: 01-29-2022 12:11-0500 Respiratory rate 16 /min Dr. Lucio Ayoub Work Phone: [facility] Work Phone: 01-29-2022 12:11-0500 SaO2% (BldA) [Mass fraction] 98 % Dr. Lucio Ayoub Work Phone: [facility] Work Phone: 01-29-2022 11:06-0500 Diastolic blood pressure 66 mm[Hg] Dr. Lucio Ayoub Work Phone: [facility] Work Phone: 01-29-2022 11:06-0500 Systolic blood pressure 136 mm[Hg] Dr. Lucio Ayoub Work Phone: [facility] Work Phone: 09-12-2021 15:48-0400 Body height 167.[address] Lucio Ayoub Work Phone: [facility] Work Phone: 09-12-2021 15:48-0400 Body mass index (BMI) [Ratio] 23.6 kg/m2 Dr. Lucio Ayoub Work Phone: [facility] Work Phone: 09-12-2021 15:48-0400 Body temperature 98 [degF] Dr. Lucio Ayoub Work Phone: [facility] Work Phone: 09-12-2021 15:48-0400 Body weight 66.[address] Lucio Ayoub Work Phone: [facility] Work Phone: 09-12-2021 15:48-0400 Diastolic blood pressure 115 mm[Hg] Dr. Lucio Ayoub Work Phone: [facility] Work Phone: 09-12-2021 15:48-0400 Heart rate 109 /min Dr. Lucio Ayoub Work Phone: [facility] Work Phone: 09-12-2021 15:48-0400 Respiratory rate 16 /min Dr. Lucio Ayoub Work Phone: [facility] Work Phone: 09-12-2021 15:48-0400 SaO2% (BldA) [Mass fraction] 98 % Dr. Lucio Ayoub Work Phone: [facility] Work Phone: 09-12-2021 15:48-0400 Systolic blood pressure 169 mm[Hg] Dr. Lucio Ayoub Work Phone: [facility] Work Phone: 07-28-2021 09:26-0400 Body temperature 99.1 [degF] Dr. Lucio Ayoub Work Phone: [facility] Work Phone: 07-28-2021 09:26-0400 Diastolic blood pressure 78 mm[Hg] Dr. Lucio Ayoub Work Phone: [facility] Work Phone: 07-28-2021 09:26-0400 Heart rate 91 /min Dr. Lucio Ayoub Work Phone: [facility] Work Phone: 07-28-2021 09:26-0400 Respiratory rate 15 /min Dr. Lucio Ayoub Work Phone: [facility] Work Phone: 07-28-2021 09:26-0400 SaO2% (BldA) [Mass fraction] 96 % Dr. Lucio Ayoub Work Phone: [facility] Work Phone: 07-28-2021 09:26-0400 Systolic blood pressure 126 mm[Hg] Dr. Lucio Ayoub Work Phone: [facility] Work Phone: 04-21-2021 00:12-0500 Body mass index (BMI) [Ratio] 24.5 kg/m2 Dr. Lucio Ayoub Work Phone: [facility] Work Phone: 04-20-2021 23:12-0500 Body mass index (BMI) [Ratio] 24.5 kg/m2 Dr. Lucio Ayoub Work Phone: [facility] Work Phone: 04-09-2021 10:12-0500 Body height 167.[address] Lucio Ayoub Work Phone: [facility] Work Phone: 04-09-2021 10:12-0500 Body mass index (BMI) [Ratio] 24.5 kg/m2 Dr. Lucio Ayoub Work Phone: [facility] Work Phone: 04-09-2021 10:12-0500 Body temperature 97 [degF] Dr. Lucio Ayoub Work Phone: [facility] Work Phone: 04-09-2021 10:12-0500 Body weight 68.[address] Lucio Ayoub Work Phone: [facility] Work Phone: 04-09-2021 10:12-0500 Diastolic blood pressure 74 mm[Hg] Dr. Lucio Ayoub Work Phone: [facility] Work Phone: 04-09-2021 10:12-0500 Heart rate 74 /min Dr. Lucio Ayoub Work Phone: [facility] Work Phone: 04-09-2021 10:12-0500 Respiratory rate 16 /min Dr. Lucio Ayoub Work Phone: [facility] Work Phone: 04-09-2021 10:12-0500 SaO2% (BldA) [Mass fraction] 97 % Dr. Lucio Ayoub Work Phone: [facility] Work Phone: 04-09-2021 10:12-0500 Systolic blood pressure 126 mm[Hg] Dr. Lucio Ayoub Work Phone: [facility] Work Phone: 03-20-2021 23:05-0500 Body mass index (BMI) [Ratio] 24.5 kg/m2 Dr. Lucio Ayoub Work Phone: [facility] Work Phone: 12-19-2020 00:19-0400 Body mass index (BMI) [Ratio] 24.5 kg/m2 Dr. Lucio Ayoub Work Phone: [facility] Work Phone: Encounters Encounter Date Encounter Type Care Provider Facility Start: 12-27-2024 ambulatory [facility] Facility:[facility] Start: 12-04-2024 ambulatory [facility] Facility:[facility] Start: 11-13-2024 ambulatory [facility] Facility:[facility] Start: 10-22-2024 End: 10-22-[address] Alli Montgomery MD -[facility] Start: 10-22-2024 End: 10-22-[address] Lucio Ayoub MD Work Phone: [facility] Start: 10-09-2024 ambulatory Lucio Chi Mega Facility:[facility] Start: 10-09-[address] Nenita Iglesias MD -[facility] Start: 10-08-2024 End: 10-08-[address] Braxton Salas DO -[facility] Work Phone: Start: 10-08-2024 End: 10-08-[address] Lucio Ayoub MD Work Phone: [facility] Start: 10-02-2024 ambulatory Lucio Chi Mega Facility:[facility] Start: 10-02-[address] Nenita Iglesias MD -[facility] Start: 09-27-2024 ambulatory Lucio Chi Mega Facility:[facility] Start: 09-27-[address] Nenita Iglesias MD -[facility] Start: 09-26-2024 Non-patient / Non-visit [facility] Work Phone: Start: 09-25-2024 Non-patient / Non-visit [facility] Work Phone: Start: 09-25-2024 Non-[facility] / [facility] Start: 09-24-2024 Non-patient / Non-visit Dr. [facility] Work Phone: Start: 09-23-2024 Non-patient / Non-visit Dr. Braxton BENNETT Start: 09-23-2024 ambulatory Lucio Chi Mega Facility:[facility] Start: 09-23-2024 End: 09-26-2024 Evaluation and management of inpatient Dr. Vic Marques DO -[facility] 3 Work Phone: Start: 09-18-2024 Non-patient / Non-visit Dr. Sravanthi Rodriguez MD -[facility] Work Phone: Start: 08-27-2024 ambulatory Lucio Hemanth Ayoub Facility:[facility] Start: 08-01-2024 End: 08-01-[address] Braxton Salas DO -[facility] Work Phone: Start: 08-01-2024 End: 08-01-[address] Lucio Ayoub MD Work Phone: [facility] Work Phone: Start: 07-16-2024 End: 07-16-[address] Luico Ayoub MD -Laboratory Work Phone: Start: 07-16-2024 End: 07-16-2024 ambulatory Lucio Hemanth Boook Facility:[facility] Start: 06-13-2024 [facility] Start: 05-22-2024 End: 05-22-[address] Lucio Ayoub MD Work Phone: [facility] Work Phone: Start: 05-22-2024 End: 05-22-[address] Lucio Ayoub MD -Laboratory, Phy Office 3rd Ilr Start: 05-22-2024 End: 05-22-2024 ambulatory Lucio Hemanth Mega Facility:[facility] Start: 04-24-2024 End: 04-24-[address] Lucio Ayoub MD Work Phone: [facility] Work Phone: Start: 04-24-2024 End: 04-24-[address] Lucio Ayoub MD -Physical Therapy Work Phone: Start: 04-06-2024 End: 04-06-[address] Lucio Ayoub MD -Laboratory, Phy Office 3rd Flr Start: 04-06-2024 End: 04-06-2024 ambulatory [facility] Facility:[facility] Start: 01-25-2024 ambulatory Rosario Cisneros Facility:[facility] Start: 01-25-2024 Non-patient / Non-visit Dr. Rosario Cisneros MD -[facility] Start: 01-25-2024 End: 01-25-2024 Patient encounter procedure Ronnell Fontenot PA-C -Pulmonary Services/Neurology Work Phone: Start: 01-25-2024 End: 01-25-2024 ambulatory [facility] Facility:[facility] Start: 01-18-2024 End: 01-18-2024 ambulatory [facility] Facility:[facility] Start: 01-03-2024 ambulatory [facility] Facility:[facility] Start: 01-03-2024 End: 01-03-2024 ambulatory [facility] Facility:[facility] Start: 07-14-2023 End: 07-14-2023 ambulatory [facility] Work Phone: Start: 07-14-2023 End: 07-14-2023 Patient encounter procedure [facility]-Radiology, [facility] Work Phone: Start: 06-29-2023 End: 06-29-2023 ambulatory [facility] Work Phone: Start: 06-29-2023 End: 06-29-2023 Patient encounter procedure [facility]-Pulmonary Services/Neurology Work Phone: Start: 06-09-2023 End: 06-09-2023 ambulatory [facility] Work Phone: Start: 06-09-2023 End: 06-09-2023 Patient encounter procedure [facility]-Laboratory, Phy Office 3rd Flr Start: 06-02-2023 End: 06-02-2023 Emergency department patient visit [facility]-Emergency Department Work Phone: Start: 04-25-2023 End: 04-25-2023 Patient encounter procedure [facility]-Laboratory, Phy Office 3rd Flr Start: 04-19-2022 End: 04-19-[address] Lucio Ayoub Work Phone: [facility] Work Phone: Start: 04-19-2022 End: 04-19-[address] Lucio Ayoub Work Phone: [facility]-Laboratory, Phy Office 3rd Flr Start: 03-24-2022 End: 03-24-[address] Lucio Ayoub Work Phone: [facility] Start: 02-12-2022 Non-patient / Non-visit Dr. Lucio Ayoub Work Phone: [facility] Start: 02-12-2022 End: 02-12-[address] Lucio Ayoub Work Phone: [facility] Work Phone: Start: 02-12-2022 End: 02-12-[address] Lucio Ayoub Work Phone: [facility]-Cardiovascular Services Start: 02-12-2022 End: 02-12-[address] Lucio Ayoub Work Phone: [facility] Start: 02-01-2022 End: 02-20-2022 Evaluation and management of inpatient Dr. Lucio Ayoub Work Phone: [facility]-Transitional Care Unit Start: 02-01-2022 Non-patient / Non-visit Dr. Lucio Ayoub Work Phone: [facility] Start: 01-31-2022 Non-patient / Non-visit Dr. Lucio Ayoub Work Phone: [facility] Start: 01-30-2022 Non-patient / Non-visit Dr. Lucio Ayoub Work Phone: [facility] Start: 01-30-2022 Non-patient / Non-visit Dr. Lucio Ayoub Work Phone: [facility] Start: 01-29-2022 End: 01-29-2022 Non-patient / Non-visit Dr. Lucio Ayoub Work Phone: [facility] Start: 01-29-2022 Non-patient / Non-visit Dr. Lucio Ayoub Work Phone: [facility] Start: 01-29-2022 Non-patient / Non-visit Dr. Lucio Ayoub Work Phone: [facility] Start: 01-29-2022 End: 02-01-2022 Evaluation and management of inpatient Dr. Lucio Ayoub [facility] Start: 09-30-2021 End: 09-30-[address] Lucio Ayoub Work Phone: [facility] Start: 09-12-2021 End: 09-12-2021 Emergency department patient visit Dr. Lucio Ayoub Work Phone: [facility]-Emergency Department Start: 08-26-[address] Lucio robins Work Phone: [facility] Start: 07-28-2021 End: 07-28-[address] Lucio Ayoub Work Phone: [facility] Start: 06-11-2021 End: 06-18-[address] Lucio Ayoub Work Phone: [facility] Start: 04-09-2021 End: 04-09-[address] Lucio Ayoub Work Phone: [facility] Start: 03-26-2021 End: 04-20-[address] Lucio Ayoub Work Phone: [facility] Start: 02-27-2021 End: 03-20-[address] Lucio Ayoub Work Phone: [facility] Procedures Date Procedure Procedure Detail Performing Clinician Start: 10-02-2024 Vitamin D, 25-hydrox y measurement Dr. Lucio Ayoub MD Work Phone: Comment on above: Vitamin D StatusDefi ciency: <20 ng/mL (50nmol/L)Insufficiency: 20-30 ng/mL (50-75 nmol/L)Sufficiency: 30-100 ng/mL (75-250 nmol/L)Toxicity: >100 ng/mL (>250 nmol/L) Start: 09-24-2024 Fluoroscopic guidance Jake Ayoub MD Work Phone: Start: 09-24-2024 Plain X-ray of hip Dr. Lucio Ayoub MD Work Phone: Start: 09-24-2024 Intramedullary naili ng of femur Dr. Lucio Ayoub MD Work Phone: Start: 09-24-[address] Lucio Ayoub MD Work Phone: Start: 09-23-[address] Lucio robins MD Work Phone: Start: 09-23-2024 Urnls dip stick/tabl et reagent auto microscopy Dr. Lucio Ayoub MD Work Phone: Start: 09-23-2024 Plain X-ray of femur Dr Alice Ayoub MD Work Phone: Start: 09-23-2024 Plain x-ray of pelvi s and lower extremity Dr. Lucio Ayoub MD Work Phone: Start: 09-23-[address] Lucio Ayoub MD Work Phone: Start: 09-23-2024 Plain chest X-ray Dr. Rina Ayoub MD Work Phone: Start: 05-22-2024 Vitamin D, 25-hydrox y measurement [...] Treatment Date Care Activity Detail Author Start: 10-22-2024 Plain X-ray of femur Femur Min 2 Views [facility] Start: 10-22-2024 XR Femur 2 Views [facility] Start: 09-26-2024 Patient discharge [facility] Start: 09-24-2024 End: 09-24-2024 [facility] Start: 09-24-2024 Ambulation therapy management [facility] Start: 09-24-2024 Application of device [facility] Start: 09-24-2024 Exercises [facility] Start: 09-24-2024 Following clinical pathway protocol [facility] Start: 09-24-2024 Introduction of urinary catheter [facility] Start: 09-24-2024 Neurovascular assessment [facility] Start: 09-24-2024 Patient education [facility] Start: 09-24-2024 Provision of activity privileges [facility] Start: 09-24-2024 Referral to occupational therapist [facility] Start: 09-24-2024 Referral to service [facility] Start: 09-24-2024 Vital signs measurements [facility] Start: 09-24-2024 Wound care [facility] Start: 09-24-2024 Recommendation to continue with treatment [facility] Start: 09-23-2024 [facility] Start: 09-23-2024 Introduction of urinary catheter [facility] Start: 09-23-2024 Application of mechanical traction on skin [facility] Start: 09-23-2024 Consultation [facility] Start: 09-23-2024 Following clinical pathway protocol [facility] Start: 09-23-2024 Assessment of risk of venous thromboembolism [facility] Start: 09-23-2024 Insertion of catheter into peripheral vein [facility] Start: 09-23-2024 Measuring intake and output [facility] Start: 09-23-2024 Providing care according to standard [facility] Start: 09-23-2024 Referral to service [facility] Start: 09-23-2024 [facility] Start: 09-23-2024 Hospital admission, emergency, from emergency room, medical nature [facility] Start: 09-23-2024 Urinalysis complete panel - Urine [facility] Start: 09-23-2024 Admission procedure [facility] Start: 09-23-2024 Verification routine [facility] Start: 09-23-2024 Thyroid stimulating hormone measurement [facility] Start: 06-02-2023 Simple repair scalp/neck/ax/genit/trunk 2.5cm/< RPR S/N/AX/GEN/TRNK 2.5CM/< [facility] Start: 06-02-2023 [facility] Start: 03-02-2022 Blood chemistry [facility] Work Phone: Start: 02-23-2022 Blood chemistry [facility] Work Phone: Start: 02-20-2022 Patient discharge [facility] Start: 02-19-2022 Development of care plan [facility] Start: 02-19-2022 Contact precautions [facility] Start: 02-19-2022 [facility] Start: 02-17-2022 Referral to service [facility] Start: 02-16-2022 Blood chemistry [facility] Work Phone: Start: 02-11-2022 Application of device [facility] Start: 02-02-2022 Speech therapy management [facility] Start: 02-02-2022 Development of care plan [facility] Start: 02-02-2022 Verification routine [facility] Work Phone: Start: 02-02-2022 Developing a treatment plan [facility] Start: 02-02-2022 Application of intermittent pneumatic compression device [facility] Start: 02-02-2022 Speech therapy assessment [facility] Start: 02-02-2022 [facility] Start: 02-01-2022 Wound care [facility] Work Phone: Start: 02-01-2022 End: 02-01-2022 [facility] Start: 02-01-2022 Following clinical pathway protocol [facility] Start: 02-01-2022 Admission procedure [facility] Start: 02-01-2022 Measuring intake and output [facility] Start: 02-01-2022 Patient referral to dietitian [facility] Start: 02-01-2022 Referral to occupational therapist [facility] Start: 02-01-2022 Referral to service [facility] Start: 02-01-2022 Vital signs measurements [facility] Start: 02-01-2022 [facility] Start: 02-01-2022 Patient discharge [facility] Start: 02-01-2022 End: 02-01-2022 Administration of blood product [facility] Start: 02-01-2022 [facility] Start: 02-01-2022 Transfusion of red blood cells [facility] Start: 01-31-2022 Care planning and problem solving actions [facility] Start: 01-30-2022 [facility] Start: 01-29-2022 Following clinical pathway protocol [facility] Start: 01-29-2022 End: 01-29-2022 [facility] Start: 01-29-2022 Assessment of risk of venous thromboembolism [facility] Start: 01-29-2022 Catheterization of vein [facility] Start: 01-29-2022 Incentive spirometry [facility] Start: 01-29-2022 Insertion of catheter into peripheral vein [facility] Start: 01-29-2022 Measuring intake and output [facility] Start: 01-29-2022 Providing care according to standard [facility] Start: 01-29-2022 Provision of activity privileges [facility] Start: 01-29-2022 Referral to occupational therapist [facility] Start: 01-29-2022 Referral to service [facility] Start: 01-29-2022 Ambulation therapy management [facility] Start: 01-29-2022 Application of device [facility] Start: 01-29-2022 Exercises [facility] Start: 01-29-2022 Following clinical pathway protocol [facility] Start: 01-29-2022 Introduction of urinary catheter [facility] Start: 01-29-2022 Neurovascular assessment [facility] Start: 01-29-2022 Oxygen therapy [facility] Start: 01-29-2022 Patient education [facility] Start: 01-29-2022 Provision of activity privileges [facility] Start: 01-29-2022 Referral to occupational therapist [facility] Start: 01-29-2022 Referral to service [facility] Start: 01-29-2022 Vital signs measurements [facility] Start: 01-29-2022 Wound care [facility] Start: 01-29-2022 End: 01-29-2022 [facility] Start: 01-29-2022 Fluoroscopic guidance [employer] Flu[employer] for C-Arm [facility] Work Phone: Start: 01-29-2022 Plain X-ray of hip Hip Min 2 Views (Portable) [facility] Work Phone: Start: 01-29-2022 Trochanteric Fixation Nail, Synthes (Right) Trochanteric Fixation Nail, Synthes (Right) [facility] Work Phone: Start: 01-29-2022 Consultation [facility] Start: 01-29-2022 Verification routine [facility] Work Phone: Start: 01-29-2022 Admission procedure [facility] Start: 01-29-2022 End: 01-29-2022 [facility] Start: 01-29-2022 Patient referral to dietitian [facility] Magnesium measurement [facility] Patient Education [facility] Work Phone: Patient referral [facility] Work Phone: Potassium [Moles/vol ume] in Serum or Plasma [facility] Work Phone: Respiratory microbia l culture Respiratory Culture [facility] Work Phone: Immunizations Immunization Date Immunization Notes Care Provider Fa cility 05-13-2021 Covid (Moderna) Dr. Lucio Ayoub Work Phone: [facility] 12-04-2020 tetanus toxoid, redu jarad diphtheria toxoid, and acellular pertussis vaccine, adsorbed Dr. Lucio Ayoub Work Phone: [facility] Payers Date Payer Category Payer Medicaid [id number] 2023 Self-pay [id number] 2012 Medicare [id number] Medicare [id number] Unknown [id number] 2.16.8 [id number] Unknown [id number] 2.16.8 [id number] Unknown [id number] 2.16.8 [id number] Unknown [id number] 2.16.8 40.1.119562.3.579.2.462 Unknown [id number] 2.16.8 40.1.426363.3.579.2.462 Unknown [id number] 2.16.8 40.1.645810.3.579.2.462 Unknown [id number] 2.16.8 40.1.708368.3.579.2.462 Unknown [id number] 2.16.8 40.1.070087.3.579.2.462 Unknown [id number] 2.16.8 40.1.780197.3.579.2.462 Unknown [id number] 2.16.8 40.1.014110.3.579.2.462 Unknown [id number] 2.16.8 40.1.645656.3.579.2.462 Unknown [id number] 2.16.8 40.1.547031.3.579.2.462 Unknown [id number] 2.16.8 40.1.400534.3.579.2.462 Unknown [id number] 2.16.8 40.1.938577.3.579.2.462 Unknown [id number] 2.16.8 40.1.580692.3.579.2.462 Unknown [id number] 2.16.8 40.1.185518.3.579.2.462 Unknown [id number] 2.16.8 40.1.210529.3.579.2.462 Unknown [id number] 2.16.8 40.1.878749.3.579.2.462 Unknown [id number] 2.16.8 40.1.482512.3.579.2.462 Unknown [id number] 2.16.8 40.1.008301.3.579.2.462 Unknown [id number] 2.16.8 40.1.211122.3.579.2.462 Unknown [id number] 2.16.8 40.1.737793.3.579.2.462 Unknown [id number] 2.16.8 40.1.841546.3.579.2.462 Unknown [id number] 2.16.8 40.1.063375.3.579.2.462 Unknown [id number] 2.16.8 40.1.842961.3.579.2.462 Unknown [id number] 2.16.8 40.1.143813.3.579.2.462 Unknown [id number] 2.16.8 40.1.642035.3.579.2.462 Unknown [id number] 2.16.8 40.1.707809.3.579.2.462 Unknown [id number] 2.16.8 40.1.607955.3.579.2.462 Social History Date Type Detail Facility Start: 04-09-2021 End: 06-02-2023 Tobacco smoking status NHIS Unknown if ever smoked [facility] Start: 1945 Sex Assigned At Female [facility] Start: 03-01-2024 End: 09-23-2024 Tobacco smoking status NHIS Never smoked tobacco (finding) [facility] Start: 05-24-2024 End: 06-02-2024 Sex Female (finding) [facility] Not [facility] NEGATED: Highlighted row [facility] NEGATED: Highlighted row Not [facility] Medical Equipment Procedure Code Equipment Code Equipment Origin al Text Equipment Identifier Dates Insertion, intramedullary prasanth, femur, using titanium trochanteric fixation nail syste 12MM/130* TI CATRINA TFNA FDA Start: 09-24-2024 Insertion, intramedullary prasanth, femur, using titanium trochanteric fixation nail syste LOCKING SCREW FDA Start: 09-24-2024 Insertion, intramedullary prasanth, femur, using titanium trochanteric fixation nail syste LOCKING SCREW FDA Start: 09-24-2024 Insertion, intramedullary prasanth, femur, using titanium trochanteric fixation nail syste TFNA FENESTRATED HELICAL BLADE FDA Start: 09-24-2024 Insertion, intramedullary prasanth, femur, using titanium trochanteric fixation nail syste 12MM/130* TI CATRINA TFNA FDA Start: 09-24-2024 Insertion, intramedullary prasanth, femur, using titanium trochanteric fixation nail syste LOCKING SCREW FDA Start: 09-24-2024 Insertion, intramedullary prasanth, femur, using titanium trochanteric fixation nail syste LOCKING SCREW FDA Start: 09-24-2024 Insertion, intramedullary prasanth, femur, using titanium trochanteric fixation nail syste TFNA FENESTRATED HELICAL BLADE FDA Start: 09-24-2024 Insertion, intramedullary prasanth, femur, using titanium trochanteric fixation nail syste 12MM/130* TI CATRINA TFNA FDA Start: 09-24-2024 Insertion, intramedullary prasanth, femur, using titanium trochanteric fixation nail syste LOCKING SCREW FDA Start: 09-24-2024 Insertion, intramedullary prasanth, femur, using titanium trochanteric fixation nail syste LOCKING SCREW FDA Start: 09-24-2024 Insertion, intramedullary prasanth, femur, using titanium trochanteric fixation nail syste TFNA FENESTRATED HELICAL BLADE FDA Start: 09-24-2024 Insertion, intramedullary prasanth, femur, using titanium trochanteric fixation nail syste 12MM/130* TI CATRINA TFNA FDA Start: 09-24-2024 Insertion, intramedullary prasanth, femur, using titanium trochanteric fixation nail syste LOCKING SCREW FDA Start: 09-24-2024 Insertion, intramedullary prasanth, femur, using titanium trochanteric fixation nail syste LOCKING SCREW FDA Start: 09-24-2024 Insertion, intramedullary prasanth, femur, using titanium trochanteric fixation nail syste TFNA FENESTRATED HELICAL BLADE FDA Start: 09-24-2024 X FDA Start: 01-29-2022 ([id number]) Orthopaedic bone screw, non-bioabsorbable, sterile ()[id number] FDA Start: 01-29-2022 Femur nail, sterile ()[id number] FDA Start: 01-29-2022 ([id number]) Spiral blade ()[id number] FDA Start: 01-29-2022 X FDA Start: 01-29-2022 [...] /State Functional Status Date Assessment Result Facility 09-26-2024 Functional status Ambulates;Stand and piv ot [facility] Work Phone: 02-20-2022 Functional status Ambulates [facility] Work Phone: 02-15-2022 Functional status Chair;Bathroom Privileg e [facility] Work Phone: 02-13-2022 Functional status Rolling Walker [facility] Work Phone: 02-01-2022 Functional status Ambulates;Bathroom Priv ilege [facility] Work Phone: Mental Status Date Assessment Result Facility 09-26-2024 Cognitive function Voice/Name [facility] Work Phone: 09-25-2024 Cognitive function Demonstrates ability to follow instructions/comprehend [facility] Work Phone: 02-20-2022 Cognitive function Voice/Name [facility] Work Phone: 02-19-2022 Cognitive function Appropriate;[facility] Work Phone: 02-15-2022 Cognitive function Voice/Name [facility] Work Phone: 02-10-2022 Cognitive function Appropriate;[facility] Work Phone: 02-01-2022 Cognitive function Voice/Name [facility] Work Phone: 09-12-2021 Cognitive function Level Of Cons ciousness Awake;Alert;Appropriate;Follow s Commands [facility] Work Phone: Clinical Notes 08-01-2024 to 09-26-2024 Note Date & Type Note Facility 09-26-2024 Discharge summary Note Date/Time September 26, 2024 12:27pm [facility] Medical Records Department [address] [place] [address] Transfer to [facility] MR#: [id number] Acct: [id number] Name: JAEL HUGGINS Rep #:[id number] : 1945 79 From: Gage Hays DO PCP: Dr. Lucio Ayoub MD Status:ADM I N Certification of patient admission REQUIRED AT TIME OF ADMISSION. I CERTIFY THAT POST-HOSPITAL ECF SERVICES ARE REQUIRED TO BE GIVEN ON AN IN-PATIENT BASIS BECAUSE OF THE ABOVE NAMED PATIENT'S NEED FOR HALFWAY CARE ON A CONTINUING BASIS FOR THE CONDITION(S) FOR WHICH HE/SHE WAS RECEIVING IN-PATIENT HOSPITAL SERVICES PRIOR TO HIS/HER TRANSFER TO THE ECF. 09/26/24 1227<Electronically signed by Gage Hays DO> Diet Diet Order/Speech Therapy: INPATIENT Hospital Diet / Speech Therapy Order(s) 09/24/24 18:08 Diet: Regular - General Routine Orders/Code Status Routine Lab Work: CBC (daily times 3) Code Status: Full Code DC O2, CPAP, BIPAP needs Home O2 Discharge instructions: No Wound(s) left lateral hip: Wound Type: Surgical Incision left lateral knee: Wound Type: Surgical Incision Therapies Weight Bearing: Weight bearing as tolerated (with walker) Physical Therapy: Eval and Treat Occupational Therapy: Eval and Treat Problem/Diagnosis (1) Intertrochanteric fracture of left hip: Status: Acute Code(s): S72.142A - Displaced intertrochanteric fracture of left femur, initial encounterfor closed fracture Plan 1. Intertrochanteric fracture of the left hip-postop day #2 ORIF left hip, PT and OT will see the patient in follow-up, she will need placement in [place] [facility] for inpatient skilled services #2 Alzheimer's disease-patient has a history of mild cognitive impairment, complicates care, management, recovery, and prognosis, patient currently residesin an assisted living facility, again she will likely need to go to a skilled facility for skilled services on discharge from the hospital #3 hypothyroidism-patient is on Synthroid #4 GERD-patient is on a PPI #5 acute blood loss anemia secondary to expected blood loss from left hip fracture-patient does not require transfusion, Hb is 7.5, IV iron given today Total clinical time spent by myself addressing the patient's medical issues, reviewing all of her data, and collaborating with patient's care team: 35 minutes Allergies/Procedures Done in Hospital Allergies No Known Allergies Allergy (Verified 08/01/24 09:56) Procedures: - (Cephalomedullary nail insertion left femur 09/24/24) Type of Care/Length of Stay Estimated LOS: Convalescent Care Less Than 30 days Type of Care Needed: Skilled Rehab Potential: Good Prognosis: Good Additional Orders/Day of Discharge H&P will serve as current which was dated: 09/23/24 Day of Discharge: 09/26/24 Discharge Plan Admission Admit Date/Time: 09/23/24 02:55 Primary Reason for Your Visit: left hip fracture Attending Provider: Gage Hays Primary Care Provider: Lucio Ayoub Chi Consulting Providers: Braxton Salas; Vic Marques; Jensen Cali Discharge Orders/Prescriptions Prescriptions: New acetaminophen 500 mg Tablet 1,000 mg PO Q8 Qty: 0 0RF levothyroxine 75 mcg Tablet 75 mcg PO DAILY@0600 Qty: 0 0RF calcium carbonate 200 mg calcium (500 mg) Tablet,Chewable 500 mg PO TIDCM Qty: 0 0RF oxycodone 5 mg Tablet 5 mg PO Q4H PRN PRN (Reason: Pain Score 4-10) 2 Days Qty: 8 0RF cholecalciferol (vitamin D3) 25 mcg (1,000 unit) Tablet 25 mcg PO DAILY Qty: 1 0RF Eliquis 5 mg Tablet 2.5 mg PO BID Qty: 0 0RF Rx Instructions: give for 30 days pantoprazole 40 mg Tablet,Delayed Release (Dr/Ec) 40 mg PO DAILY Qty: 0 0RF ferrous sulfate 325 mg (65 mg iron) tablet,delayed release (DR/EC) 325 mg PO BID Qty: 1 0RF Discontinued levothyroxine 75 mcg tablet 75 mcg PO DAILY pantoprazole 40 mg tablet,delayed release (DR/EC) 40 mg PO DAILY Referrals / Follow Up: Braxton Salas DO [Med Staff - Active Staff] - See Referral Note (in 2 weeks) Lucio Ayoub Chi, MD [Primary Care Provider] - Disposition Disposition (needs filled in before D/C Order can be placed): [facility] Facility (1) Intertrochanteric fracture of left hip Qualifiers: Encounter type: initial encounter Fracture type: closed Fracture alignment: displaced Qualified Code(s): S72.142A - Displaced intertrochanteric fracture ofleft femur, initial encounter for closed fracture 09/26/24 1227 <Electronically signed by Gage Hays DO> Cosigner Signature (if applicable): CC: Dr. Vic Marques DO; Dr. Braxton Salas DO; Dr. Jensen Cali MD; Dr. Lucio Ayoub MD ~ [facility] Work Phone: 1(693) 835-847607-09-2025 Hospital Discharge instructionsAdditional Instructions Date of Discharge: 09/26/24[facility] Work Phone: 1(531) 676-375007-09-2025 Discharge summary [facility] Medical Records Department [address] [place] [address] Transfer to [facility] MR#: [id number] Acct: [id number] Name: JAEL HUGGINS Rep #:[id number] : 1945 79 From: Gage Hays DO PCP: Dr. Lucio Ayoub MD Status:ADM I N Certification of patient admission REQUIRED AT TIME OF ADMISSION. I CERTIFY THAT POST-HOSPITAL ECF SERVICES ARE REQUIRED TO BE GIVEN ON AN IN-PATIENT BASIS BECAUSE OF THE ABOVE NAMED PATIENT'S NEED FOR HALFWAY CARE ON A CONTINUING BASIS FOR THE CONDITION(S) FOR WHICH HE/SHE WAS RECEIVING IN-PATIENT HOSPITAL SERVICES PRIOR TO HIS/HER TRANSFER TO THE [facility]. 09/26/24 1227 Diet Diet Order/Speech Therapy: INPATIENT Hospital Diet / Speech Therapy Order(s) 09/24/24 18:08 Diet: Regular - General Routine Orders/Code Status Routine Lab Work: CBC (daily times 3) Code Status: Full Code DC O2, CPAP, BIPAP needs Home O2 Discharge instructions: No Wound(s) left lateral hip: Wound Type: Surgical Incision left lateral knee: Wound Type: Surgical Incision Therapies Weight Bearing: Weight bearing as tolerated (with walker) Physical Therapy: Eval and Treat Occupational Therapy: Eval and Treat Problem/Diagnosis (1) Intertrochanteric fracture of left hip: Status: Acute Code(s): S72.142A - Displaced intertrochanteric fracture of left femur, initial encounterfor closed fracture Plan 1. Intertrochanteric fracture of the left hip-postop day #2 ORIF left hip, PT and OT will see the patient in follow-up, she will need placement in [place] [facility] for inpatient skilled services #2 Alzheimer's disease-patient has a history of mild cognitive impairment, complicates care, management, recovery, and prognosis, patient currently residesin an assisted living facility, again she will likely need to go to a skilled facility for skilled services on discharge from the hospital #3 hypothyroidism-patient is on Synthroid #4 GERD-patient is on a PPI #5 acute blood loss anemia secondary to expected blood loss from left hip fracture-patient does notrequire transfusion, Hb is 7.5, IV iron given today Total clinical time spent by myself addressing the patient's medical issues, reviewing all of her data, and collaborating with patient's care team: 35 minutes Allergies/Procedures Done in Hospital Allergies No Known Allergies Allergy (Verified 08/01/24 09:56) Procedures: - (Cephalomedullary nail insertion left femur 09/24/24) Type of Care/Length of Stay Estimated LOS: Convalescent Care Less Than 30 days Type of Care Needed: Skilled Rehab Potential: Good Prognosis: Good Additional Orders/Day of Discharge H&P will serve as current which was dated: 09/23/24 Day of Discharge: 09/26/24 Discharge Plan Admission Admit Date/Time: 09/23/24 02:55 Primary Reason for Your Visit: left hip fracture Attending Provider: Gage Hays Primary Care Provider: Lucio Ayoub Chi Consulting Providers: Braxton Salas; Vic Marques; Jensen Cali Discharge Orders/Prescriptions Prescriptions: New acetaminophen 500 mg Tablet 1,000 mg PO Q8 Qty: 0 0RF levothyroxine 75 mcg Tablet 75 mcg PO DAILY@0600 Qty: 0 0RF calcium carbonate 200 mg calcium (500 mg) Tablet,Chewable 500 mg PO TIDCM Qty: 0 0RF oxycodone 5 mg Tablet 5 mg PO Q4H PRN PRN (Reason: Pain Score 4-10) 2 Days Qty: 8 0RF cholecalciferol (vitamin D3) 25 mcg (1,000 unit) Tablet 25 mcg PO DAILY Qty: 1 0RF Eliquis 5 mg Tablet 2.5 mg PO BID Qty: 0 0RF Rx Instructions: give for 30 days pantoprazole 40 mg Tablet,Delayed Release (Dr/Ec) 40 mg PO DAILY Qty: 0 0RF ferrous sulfate 325 mg (65 mg iron) tablet,delayed release (DR/EC) 325 mg PO BID Qty: 1 0RF Discontinued levothyroxine 75 mcg tablet 75 mcg PO DAILY pantoprazole 40 mg tablet,delayed release (DR/EC) 40 mg PO DAILY Referrals / Follow Up: Braxton Salas DO [Med Staff - Active Staff] - See Referral Note (in 2 weeks) Lucio Ayoub Chi, MD [Primary Care Provider] - Disposition Disposition (needs filled in before D/C Order can be placed): [facility] Facility (1) Intertrochanteric fracture of left hip Qualifiers: Encounter type: initial encounter Fracture type: closed Fracture alignment: displaced Qualified Code(s): S72.142A - Displaced intertrochanteric fracture ofleft femur, initial encounter for closed fracture 09/26/24 1227 Cosigner Signature (if applicable): CC: Dr. Vic Marqeus DO; Dr. Braxton Salas DO; Dr. Jensen Cali MD; Dr. Lucio Ayoub MD ~ [facility]07-09-2025 [facility] Medical Records Department [address] [place] [address] Discharge Summary 09/26/24 1227 MR#: [id number] Acct: [id number] Name: JAEL HUGGINS Rep #: [id number] : 1945 79 From: Gage Hays DO PCP: Dr. Lucio Ayoub MD Status:DIS IN Location: [address] Providers Date of Admission: 09/23/24 Date of Discharge: 09/26/24 Primary Care Physician: Dr. Lucio Ayoub MD Consultations 09/23/24 06:42 Consult: Orthopedics Routine Consulting Provider: Braxton Salas Reason for Consult: Left intertrochanteric hip fracture after fall. EMERGENT Consult: No MD Notified: Yes Date Notified: 09/23/24 Time Notified: 06:42 Method of Notification: ED Physician Initiated Reason For Visit: ACUTE LEFT INTERTROCHANTERIC HIP FRACTURE Diagnosis Discharge Diagnosis (1) Intertrochanteric fracture of left hip: Status: Acute Code(s): S72.142A - Displaced intertrochanteric fracture of left femur, initial encounter for closed fracture Qualifiers: Encounter type: initial encounter Fracture alignment: displaced Fracture type: closed Q ualified Code(s): S72.142A - Displaced intertrochanteric fracture of left femur, initial encounter for closed fracture Plan 1. Intertrochanteric fracture of the left hip-postop day #2 ORIF left hip, PT and OT will see the patient in follow-up, she will need placement in [place] [facility] for inpatient skilled services #2 Alzheimer's disease-patient has a history of mild cognitive impairment, complicates care, management, recovery, and prognosis, patient currently resides in an assisted living facility, again she will likely need to go to a skilled facility for skilled services on discharge from the hospital #3 hypothyroidism-patient is on Synthroid #4 GERD-patient is on a PPI #5 acute blood loss anemia secondary to expected blood loss from left hip fracture-patient does not require transfusion, Hb is 7.5, IV iron given today Total clinical time spent by myself addressing the patient's medical issues, reviewing all of her data, and collaborating with patient's care team: 35 minutes Medications at Discharge Home Medications acetaminophen 500 mg tablet 1,000 mg (2 x 500 mg) PO Q8 #0 tabs 09/26/24 apixaban 5 mg tablet (Eliquis) 2.5 mg (1/2 x 5 mg) PO BID #0 tabs 09/26/24 calcium carbonate 500 mg (2.5 x 200 mg calcium (500 mg)) PO TIDCM #0 tabs 09/26/24 cholecalciferol (vitamin D3) 25 mcg (1,000 unit) tablet 25 mcg PO DAILY #1 TAB 09/26/24 ferrous sulfate 325 mg (65 mg iron) tablet,delayed release 325 mg PO BID #1 TAB 09/26/24 levothyroxine 75 mcg tablet 75 mcg PO DAILY@0600 #0 tabs 09/26/24 oxycodone 5 mg tablet 5 mg PO Q4H PRN PRN Pain Score 4-10 2 days #8 tabs 09/26/24 pantoprazole 40 mg tablet,delayed release 40 mg PO DAILY #0 tabs 09/26/24 Hospital Course Operations - (Cephalic medullary fixation of the left femur-09/24/2024) Procedures None Summary of Care Provided Minutes Spent on Discharge: 32 Hospital Course: 79-year-old white female was seen in the emergency room at [facility] complaining of left hip pain following a mechanical fall at home. Patient has a history of mild cognitive impairment/Alzheimer's disease, the fall occurred in her bathroom. Workup in the emergency room included a CBC that was remarkable for hemoglobin of 11.3, patient's chemistry profile was essentially unremarkable, an x-ray of the left hip showed an acute left intertrochanteric femoral neck fracture. Patient was admitted to [place] [address] and seen in consultation by orthopedic surgery, she was seen by PT and OT and underwent ORIF of the left hip consisting of insertion of an intramedullary nail. Patient did well after the surgery and there were no complications, she was excepted at a [facility] for inpatient rehab services. On 09/26/2024, patient was seen and examined:alert, oriented x3, no apparent distress and average body habitus General Appearance: cooperative, well kempt and well developed Orientation / Consciousness: awake, oriented to person, oriented to place and oriented to time HEENT normocephalic, head/scalp atraumatic and moist oral mucous membranes Eyes PERRL, EOMs intact bilaterally and conjunctivae normal Neck supple, no JVD, thyroid normal and no carotid bruits General: trachea midline Resp normal respiratory effort, no retractions, no use of accessory muscles and clear to auscultation bilaterally Auscultation: Negative for rales, rhonchi or wheezes Cardio regular rate, regular rhythm, S1 normal heart sound, S2 normal heart sound, no murmurs, no rub and no gallops GI normal to inspection, nondistended, normoactive bowel sounds, soft to palpation, non-tender and non- distended Extremity no clubbing, cyanosis or edema Skin no rashes or lesions noted General Skin (more content not included)...[facility]07-08-2025 Progress note Author Gage Hays [facility] Note Date/Time September 25, 2024 4:29p m [facility] Medical Records Department [address] [place] [address] Progress Note - Hospitalist 09/25/24 1624 MR#: [id number] Acct: [id number] Name: JAEL HUGGINS Rep #:[id number] : 1945 79 From: Gage Hays DO PCP: Dr. Lucio Ayoub MD Status:ADM I N Location: MS3 [id number] Reason for Visit Reason for Visit: Diagnoses Hypothyroidism, unspecified (09/23/24) Mild cognitive impairment of uncertain or unknown etiology (09/23/24) Fracture of unspecified part of neck of left femur, initial encounter for closedfracture (09/23/24) Displaced intertrochanteric fracture of left femur, initial encounter for closedfracture (09/23/24) Unspecified fall, initial encounter (09/23/24) Personal history of (healed) traumatic fracture (09/23/24) Subjective Subjective Patient was seen and examined today, we are currently awaiting approval for her to go to an extended care facility for inpatient skilled services. Patient has no complaints for this examiner today. Objective Data Objective Data Vital Signs: Vital Signs Temp Pulse Resp BP Pulse Ox O2 Del Method O2 Flow Rate 98 F 102 H 18 152/58 H 95 Room Air 2 09/25/24 14:10 09/25/24 14:10 09/25/24 14:10 09/25/24 14:10 09/25/24 14:10 09/25/24 14:10 09/24/24 17:00 Oxygen Flow Rate (L/min) 2 Oxygen Delivery Method Room Air Weight: 73.3 kg Body Mass Index (BMI) 25.9 Intake & Output: Intake and Output for Last 24 Hours 09/23/24 09/24/24 09/25/24 23:59 23:59 23:59 Intake Total 2250 / 2250 1110 / 1110 2167.92 / 2167.92 Output Total 400 / 600 1100 / 1100 1000 / 1000 Balance 1850 / 1650 1167.92 / 1167.92 Lab / Micro Data 09/24/24 04:05 09/24/24 04:05 Micro: Microbiology 09/23/24 14:00 Urine Catheter - Catheter Urine Culture - Preliminary GNR 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 Physical Exam Narrative alert, oriented x3, no apparent distress and average body habitus General Appearance: cooperative, well kempt and well developed Orientation / Consciousness: awake, oriented to person, oriented to place and oriented to time HEENT normocephalic, head/scalp atraumatic and moist oral mucous membranes Eyes PERRL, EOMs intact bilaterally and conjunctivae normal Neck supple, no JVD, thyroid normal and no carotid bruits General: trachea midline Resp normal respiratory effort, no retractions, no use of accessory muscles and clearto auscultation bilaterally Auscultation: Negative for rales, rhonchi or wheezes Cardio regular rate, regular rhythm, S1 normal heart sound, S2 normal heart sound, no murmurs, no rub and no gallops GI normal to inspection, nondistended, normoactive bowel sounds, soft to palpation,non-tender and non-distended Extremity no clubbing, cyanosis or edema Skin no rashes or lesions noted General Skin Exam: no breakdown Neuro oriented x3, CN's II-XII intact bilaterally, no focal motor deficits and no sensory deficits noted Sensorium / Orientation: awake and alert Speech: speech normal Psych Psych Narrative: Patient exhibits some mild cognitive impairment Assessment & Plan Assessment/Plan (1) Intertrochanteric fracture of left hip: QUALIFIERS: Encounter type: initial encounter Fracture type: closed Fracture alignment: displaced Qualified Code(s): S72.142A - Displaced intertrochanteric fracture of left femur, initial encounter for closed fracture PLAN: Plan 1. Intertrochanteric fracture of the left hip-postop day #1 ORIF left hip, PT and OT will see the patient in follow-up, she will need placement in [place] [facility] [place] for inpatient skilled services #2 Alzheimer's disease-patient has a history of mild cognitive impairment, complicates care, management, recovery, and prognosis, patient currently residesin an assisted living facility, again she will likely need to go to a skilled facility for skilled services on discharge from the hospital #3 hypothyroidism-patient is on Synthroid #4 GERD-patient is on a PPI #5 acute blood loss anemia secondary to expected blood loss from left hip fracture-patient does not require transfusion at this time, H&H will be rechecked in the morning Total clinical time spent by myself addressing the patient's medical issues, reviewing all of her data, and collaborating with patient's care team: 35 minutes Charges/Coding Visit Charges Inpatient E&M: 75681 Subs Hosp L2 09/25/24 6105 <Electronically signed by Gage Hays DO> Cosigner Signature (if applicable): CC: ~ Signed [facility] Work Phone: 1(717) 379-820607-08-2025 Progress note [facility] Medical Records Department [facility] [place] [address] Progress Note - Hospitalist 09/25/24 1624 MR#: [id number] Acct: [id number] Name: JAEL HUGGINS Rep #:[id number] : 1945 79 From: Gage Hays DO PCP: Dr. Lucio Ayoub MD Status:ADM I N Location: [place] [address] Reason for Visit Reason for Visit: Diagnoses Hypothyroidism, unspecified (09/23/24) Mild cognitive impairment of uncertain or unknown etiology (09/23/24) Fracture of unspecified part of neck of left femur, initial encounter for closedfracture (09/23/24) Displaced intertrochanteric fracture of left femur, initial encounter for closedfracture (09/23/24) Unspecified fall, initial encounter (09/23/24) Personal history of (healed) traumatic fracture (09/23/24) Subjective Subjective Patient was seen and examined today, we are currently awaiting approval for her to go to an extended care facility for inpatient skilled services. Patient has no complaints for this examiner today. Objective Data Objective Data Vital Signs: Vital Signs Temp Pulse Resp BP Pulse Ox O2 Del Method O2 Flow Rate 98 F 102 H 18 152/58 H 95 Room Air 2 09/25/24 14:10 09/25/24 14:10 09/25/24 14:10 09/25/24 14:10 09/25/24 14:10 09/25/24 14:10 09/24/24 17:00 Oxygen Flow Rate (L/min) 2 Oxygen Delivery Method Room Air Weight: 73.3 kg Body Mass Index (BMI) 25.9 Intake & Output: Intake and Output for Last 24 Hours 09/23/24 09/24/24 09/25/24 23:59 23:59 23:59 Intake Total 2250 / 2250 1110 / 1110 2167.92 / 2167.92 Output Total 400 / 600 1100 / 1100 1000 / 1000 Balance 1850 / 1650 1167.92 / 1167.92 Lab / Micro Data 09/24/24 04:05 09/24/24 04:05 Micro: Microbiology 09/23/24 14:00 Urine Catheter - Catheter Urine Culture - Preliminary GNR 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 Physical Exam Narrative alert, oriented x3, no apparent distress and average body habitus General Appearance: cooperative, well kempt and well developed Orientation / Consciousness: awake, oriented to person, oriented to place and oriented to time HEENT normocephalic, head/scalp atraumatic and moist oral mucous membranes Eyes PERRL, EOMs intact bilaterally and conjunctivae normal Neck supple, no JVD, thyroid normal and no carotid bruits General: trachea midline Resp normal respiratory effort, no retractions, no use of accessory muscles and clearto auscultation bilaterally Auscultation: Negative for rales, rhonchi or wheezes Cardio regular rate, regular rhythm, S1 normal heart sound, S2 normal heart sound, no murmurs, no rub and no gallops GI normal to inspection, nondistended, normoactive bowel sounds, soft to palpation,non-tender and non-distended Extremity no clubbing, cyanosis or edema Skin no rashes or lesions noted General Skin Exam: no breakdown Neuro oriented x3, CN's II-XII intact bilaterally, no focal motor deficits and no sensory deficits noted Sensorium / Orientation: awake and alert Speech: speech normal Psych Psych Narrative: Patient exhibits some mild cognitive impairment Assessment & Plan Assessment/Plan (1) Intertrochanteric fracture of left hip: QUALIFIERS: Encounter type: initial encounter Fracture type: closed Fracture alignment: displaced Qualified Code(s): S72.142A - Displaced intertrochanteric fracture of left femur, initial encounter for closed fracture PLAN: Plan 1. Intertrochanteric fracture of the left hip-postop day #1 ORIF left hip, PT and OT will see the patient in follow-up, she [place] need [facility] [place] [facility] skilled services #2 Alzheimer's disease-patient has a history of mild cognitive impairment, complicates care, management, recovery, and prognosis, patient currently residesin an assisted living facility, again she will likely need to go to a skilled facility for skilled services on discharge from the hospital #3 hypothyroidism-patient is on Synthroid #4 GERD-patient is on a PPI #5 acute blood loss anemia secondary to expected blood loss from left hip fracture-patient does notrequire transfusion at this time, H&H will be rechecked in the morning Total clinical time spent by myself addressing the patient's medical issues, reviewing all of her data, and collaborating with patient's care team: 35 minutes Charges/Coding Visit Charges Inpatient E&M: 95980 Subs Hosp L2 09/25/24 5685 Cosigner Signature (if applicable): CC: ~ Signed [facility]07-08-2025 Progress note Author Jensen Cali [facility] Note Date/Time September 25, 2024 1:38p m [facility] Medical Records Department [address] [place] [address] Progress Note - Hospitalist 09/23/24 0755 MR#: [id number] Acct: [id number] Name: JAEL HUGGINS Rep #:[id number] : 1945 79 From: Jensen Joseph PCP: Dr. Lucio Ayoub MD Status:ADM I N Location: [place] [address] Hospitalist Note 79-year-old female was admitted with fall in bathroom with complaint of left hippain with subsequent inability to ambulate. Denies head trauma or LOC after fall. She uses walker, lives at [facility]. History of Alzheimer's disease. In the ER, x-ray shows evidence of acute left intertrochanteric femoral neck fracture and patient planned for ORIF on Tuesday She has history of right hip fracture status post ORIF by orthopedic surgeon Denies dysuria Seen and examined General: Alert, Oriented x3, Cooperative HEENT: Atraumatic, PERRLA, EOMI, Normocephalic. Oral: No Gingival or Mucosal Lesions/ Ulcerations Neck: Supple, No JVD, Negative Carotid Bruits Chest wall/Lungs: Air entry diminished in bilateral lung bases. No crepitation/rhonchi Cardiovascular: Regular rate and rhythm, Normal S1,S2, No M/G/R Abdomen: Bowel Sounds Present, Soft, Non Tender, Non-Distended : No dysuria. No renal angle tenderness. No suprapubic tenderness. Extremities: No edema, Capillary Refill Less than 3 Seconds Skin: No rashes, No breakdown Musculoskeletal: Left hip externally rotated, flexed abducted. Tenderness presented to the left femoral triangle. Status post right ORIF Neurological: Cranial nerves II-XII grossly intact, DTR 2+/4. No acute focal neurological deficit. Psych/Mental Status: Normal Affect, Appropriate. Plan left total hip on Tuesday09/23/24 0948 <Electronically signed by Jensen Cali MD> Cosigner Signature (if applicable): CC: ~ Signed ADDENDUM by Dr. Jensen Cali MD on 09/23/24 at 1656 Addendum U/A abnormal with positive nitrite, pyruia but no dysurina. Urine Culture ordered. 09/23/24 1656<Electronically signed by Jensen Cali MD> Cosigner Signature (if applicable): cc: ~* Signed ADDENDUM by Dr. Jensen Cali MD on 09/25/24 at 1338 Addendum Urine culture was ordered on 09/23/2024. It shows GNR lactose on more than 100,000 colonies. But at that time patient did not have dysuria therefore asymptomatic bacteriuria. Patient had IV cefazolin as preoperative antibiotic 09/25/24 1338<Electronically signed by Jensen Cali MD> Cosigner Signature (if applicable): cc: ~* Signed [facility] Work Phone: 1(950) 289-424307-08-2025 Progress note [facility] Medical Records Department [address] [place] [address] Progress Note - Hospitalist 09/23/24 0755 MR#: [id number] Acct: [id number] Name: JAEL HUGGINS Rep #:[id number] : 1945 79 From: Jensen Joseph PCP: Dr. Lucio Ayoub MD Status:ADM I N Location: [place] [address] Hospitalist Note 79-year-old female was admitted with fall in bathroom with complaint of left hippain with subsequent inability to ambulate. Denies head trauma or LOC after fall. She uses walker, lives at [facility]. History of Alzheimer's disease. In the ER, x-ray shows evidence of acute left intertrochanteric femoral neck fracture and patient planned for ORIF on Tuesday She has history of right hip fracture status post ORIF by orthopedic surgeon Denies dysuria Seen and examined General: Alert, Oriented x3, Cooperative HEENT: Atraumatic, PERRLA, EOMI, Normocephalic. Oral: No Gingival or Mucosal Lesions/ Ulcerations Neck: Supple, No JVD, Negative Carotid Bruits Chest wall/Lungs: Air entry diminished in bilateral lung bases. No crepitation/rhonchi Cardiovascular: Regular rate and rhythm, Normal S1,S2, No M/G/R Abdomen: Bowel Sounds Present, Soft, Non Tender, Non-Distended : No dysuria. No renal angle tenderness. No suprapubic tenderness. Extremities: No edema, Capillary Refill Less than 3 Seconds Skin: No rashes, No breakdown Musculoskeletal: Left hip externally rotated, flexed abducted. Tenderness presented to the left femoral triangle. Status post right ORIF Neurological: Cranial nerves II-XII grossly intact, DTR 2+/4. No acute focal neurological deficit. Psych/Mental Status: Normal Affect, Appropriate. Plan left total hip on Tuesday09/23/24 0948 Cosigner Signature (if applicable): CC: ~ Signed ADDENDUM by Dr. Jensen Cali MD on 09/23/24 at 1656 Addendum U/A abnormal with positive nitrite, pyruia but no dysurina. Urine Culture ordered. 09/23/24 1656 Cosigner Signature (if applicable): cc: ~* Signed ADDENDUM by Dr. Jensen Cali MD on 09/25/24 at 1338 Addendum Urine culture was ordered on 09/23/2024. It shows GNR lactose on more than 100,000 colonies. But at that time patient did not have dysuria therefore asymptomatic bacteriuria. Patient had IV cefazolin as preoperative antibiotic 09/25/24 1338 Cosigner Signature (if applicable): cc: ~* Signed [facility]07-08-2025 Progress note Author [facility] Note Date/Time September 25, 2024 7:13a m [facility] Medical Records Department [address] [place] [address] Progress Note - Orthopedic 09/25/24709 MR#: [id number] Acct: [id number] Name: JAEL HUGGINS Rep #:[id number] : 1945 79 From: Braxton [facility] PCP: Dr. Lucio Ayoub MD Status:ADM I N Location: [place]3 LE195-3 Subjective Subjective Seen and examined. Complain of left hip pain otherwise no complaints denies fever chills nausea vomiting shortness of breath or chest pain. Objective Data Objective Data Vital Signs: Vital Signs Temp Pulse Resp BP Pulse Ox O2 Del Method O2 Flow Rate 98.6 F 96 18 123/97 H 95 Room Air 2 09/25/24 06:12 09/25/24 06:12 09/25/24 06:12 09/25/24 06:12 09/25/24 06:12 09/25/24 06:12 09/24/24 17:00 Oxygen Flow Rate (L/min) 2 Oxygen Delivery Method Room Air Weight: 161 lb 9.581 oz Body Mass Index (BMI) 25.9 Intake & Output: Intake and Output for Last 24 Hours 09/23/24 09/24/24 09/25/24 23:59 23:59 23:59 Intake Total 2250 / 2250 1110 / 1110 1210 / 1210 Output Total 400 / 600 1100 / 1100 1000 / 1000 Balance 1850 / 1650 210 / 210 Lab / Micro Data 09/24/24 04:05 09/24/24 04:05 Radiography Diagnostic Testing: Radiology Impression C-Arm Fluoroscopy 09/24/24 15:00 IMPRESSION: Intraoperative fluoroscopy was performed for left femoral fracture fixation including placement of an intramedullary nail with proximal and distal interlocking screws. 9 fluoroscopic images were also obtained. Reading Location: [address] Hip X-Ray 09/24/24 15:00 IMPRESSION: Intraoperative fluoroscopy was performed for left femoral fracture fixation including placement of an intramedullary nail with proximal and distal interlocking screws. 9 fluoroscopic images were also obtained. Reading Location: [id number] Physical Exam Const alert and no apparent distress General Appearance: cooperative Extremity Extremity Narrative: Left hip dressing clean dry intact there is ecchymosis in the lateral thigh which is to be expected her compartments are soft she is neurovascular intact EHL tibialis anterior gastrocsoleus intact sensation light touch palpable pedal pulse. Assessment & Plan Assessment/Plan (1) Intertrochanteric fracture of left hip: QUALIFIERS: Encounter type: initial encounter Fracture type: closed Fracture alignment: displaced Qualified Code(s): S72.142A - Displaced intertrochanteric fracture of left femur, initial encounter for closed fracture PLAN: Plan Postop day #1 left femur cephalomedullary fixation for comminuted intertrochanteric femur fracture PT OT weightbearing as tolerated Pain control oxycodone and Tylenol DVT prophylaxis SCDs ALFREDA hose Eliquis 2.5 mg twice daily for 3 weeks postop Dressing to be undisturbed for 5 days postop then on 09/29/2024 dressing should be removed and cleaned daily with either Betadine or antibacterial soap and warmwater with dry dressing replaced daily for another 5 days and then left open to air. Patient should follow-up in the office in 2 weeks for wound check staple removalif however she is at a [facility] facility TCU rehab I am happy to see her there if notified. 09/25/24712 <Electronically signed by Braxton Salas DO> Cosigner Signature (if applicable): CC: ~ Signed [facility] Work Phone: 1([phone]) 176-612707-08-2025 Progress note [facility] Medical Records Department [address] [place] [address] Progress Note - Orthopedic 09/25/24709 MR#: [id number] Acct: [id number] Name: JAEL HUGGINS Rep #:[id number] : 1945 79 From: Braxton Salas DO PCP: Dr. Lucio Ayoub MD Status:ADM I N Location: [place] [address] Subjective Subjective Seen and examined. Complain of left hip pain otherwise no complaints denies fever chills nausea vomiting shortness of breath or chest pain. Objective Data Objective Data Vital Signs: Vital Signs Temp Pulse Resp BP Pulse Ox O2 Del Method O2 Flow Rate 98.6 F 96 18 123/97 H 95 Room Air 2 09/25/24 06:12 09/25/24 06:12 09/25/24 06:12 09/25/24 06:12 09/25/24 06:12 09/25/24 06:12 09/24/24 17:00 Oxygen Flow Rate (L/min) 2 Oxygen Delivery Method Room Air Weight: 161 lb 9.581 oz Body Mass Index (BMI) 25.9 Intake & Output: Intake and Output for Last 24 Hours 09/23/24 09/24/24 09/25/24 23:59 23:59 23:59 Intake Total 2250 / 2250 1110 / 1110 1210 / 1210 Output Total 400 / 600 1100 / 1100 1000 / 1000 Balance 1850 / 1650 210 / 210 Lab / Micro Data 09/24/24 04:05 09/24/24 04:05 Radiography Diagnostic Testing: Radiology Impression C-Arm Fluoroscopy 09/24/24 15:00 IMPRESSION: Intraoperative fluoroscopy was performed for left femoral fracture fixation including placement of an intramedullary nail with proximal and distal interlocking screws. 9 fluoroscopic images were also obtained. Reading Location: [facility] Hip X-Ray 09/24/24 15:00 IMPRESSION: Intraoperative fluoroscopy was performed for left femoral fracture fixation including placement of an intramedullary nail with proximal and distal interlocking screws. 9 fluoroscopic images were also obtained. Reading Location: [id number] Physical Exam Const alert and no apparent distress General Appearance: cooperative Extremity Extremity Narrative: Left hip dressing clean dry intact there is ecchymosis in the lateral thigh which is to be expectedher compartments are soft she is neurovascular intact EHL tibialis anterior gastrocsoleus intact sensation light touch palpable pedal pulse. Assessment & Plan Assessment/Plan (1) Intertrochanteric fracture of left hip: QUALIFIERS: Encounter type: initial encounter Fracture type: closed Fracture alignment: displaced Qualified Code(s): S72.142A - Displaced intertrochanteric fracture of left femur, initial encounter for closed fracture PLAN: Plan Postop day #1 left femur cephalomedullary fixation for comminuted intertrochanteric femur fracture PT OT weightbearing as tolerated Pain control oxycodone and Tylenol DVT prophylaxis SCDs ALFREDA hose Eliquis 2.5 mg twice daily for 3 weeks postop Dressing to be undisturbed for 5 days postop then on 09/29/2024 dressing should be removed and cleaned daily with either Betadine or antibacterial soap and warmwater with dry dressing replaced daily for another 5 days and then left open to air. Patient should follow-up in the office in 2 weeks for wound check staple removalif however she is at a [facility] facility TCU rehab I am happy to see her there if notified. 09/25/24712 Cosigner Signature (if applicable): CC: ~ Signed [facility]07-07-2025 Consult note Author Pedro Hewitt [facility] Note Date/Time September 24, 2024 7:51p m [facility] Medical Records Department [address] [place] [address] Anesthesia Postop Eval II 09/24/241950 MR#: [id number] Acct: [id number] Name: JAEL HUGGINS Rep #:[id number] : 1945 79 From: Pedro Hewitt MD PCP: Dr. Lucio Ayoub MD Status:ADM I N Y Race: C Location: [place] [address] Anesthesia Postop Eval I Sum Postop Eval Completion status Anesthesia document: Postop Eval 1 completed: Yes Anesthesia Postop Eval I Summary Anesthesia Postop Eval I Summary: Anesthesia Postop Eval I: Assessment Summary Airway patent Yes 09/24/24 16:35 INFRASTRUCTURE CONSULTANT.APAT Spontaneous unlabored Yes 09/24/24 16:35 INFRASTRUCTURE CONSULTANT.APAT respirations Mental status Asleep 09/24/24 16:35 INFRASTRUCTURE CONSULTANT.APAT nausea No 09/24/24 16:35 INFRASTRUCTURE CONSULTANT.APAT Vomiting No 09/24/24 16:35 INFRASTRUCTURE CONSULTANT.APAT Anesthesia Postop Eval I: Fluid Summary Crystalloid volume administer 700 09/24/24 16:35 INFRASTRUCTURE CONSULTANT.APAT (ml) Colloids volume administered ( ml) Blood Product volume administered (ml) Total IV fluid infused 700 09/24/24 16:35 INFRASTRUCTURE CONSULTANT.APAT Anesthesia Postop Eval I: Summary Notes Anesthesia Complication No 09/24/24 16:35 INFRASTRUCTURE CONSULTANT.APAT Anesthesia Complication Comment: Post-operative progress note Anesthesia: Postop Eval II Evaluation Mental status: Awake Pain Level: 2 nausea: No Vomiting: No 09/24/241950 <Electronically signed by Pedro Hewitt MD > Date _ Pedro Hewitt MD Cosigner Signature: Date CC: ~ Signed [facility] Work Phone: 1([phone]) 950-110107-07-2025 Consult note [facility] Medical Records Department [address] [place] [address] [place] [address] Anesthesia Postop Eval II 09/24/241950 MR#: [id number] Acct: [id number] Name: JAEL HUGGINS Rep #:[id number] : 1945 79 From: Pedro Hewitt MD PCP: Dr. Lucio Ayoub MD Status:ADM I N Y Race: C Location: [place] [address] Anesthesia Postop Eval I Sum Postop Eval Completion status Anesthesia document: Postop Eval 1 completed: Yes Anesthesia Postop Eval I Summary Anesthesia Postop Eval I Summary: Anesthesia Postop Eval I: Assessment Summary Airway patent Yes 09/24/24 16:35 INFRASTRUCTURE CONSULTANT.APAT Spontaneous unlabored Yes 09/24/24 16:35 INFRASTRUCTURE CONSULTANT.APAT respirations Mental status Asleep 09/24/24 16:35 INFRASTRUCTURE CONSULTANT.APAT nausea No 09/24/24 16:35 INFRASTRUCTURE CONSULTANT.APAT Vomiting No 09/24/24 16:35 INFRASTRUCTURE CONSULTANT.APAT Anesthesia Postop Eval I: Fluid Summary Crystalloid volume administer 700 09/24/24 16:35 INFRASTRUCTURE CONSULTANT.APAT (ml) Colloids volume administered ( ml) Blood Product volume administered (ml) Total IV fluid infused 700 09/24/24 16:35 INFRASTRUCTURE CONSULTANT.APAT Anesthesia Postop Eval I: Summary Notes Anesthesia Complication No 09/24/24 16:35 INFRASTRUCTURE CONSULTANT.APAT Anesthesia Complication Comment: Post-operative progress note Anesthesia: Postop Eval II Evaluation Mental status: Awake Pain Level: 2 nausea: No Vomiting: No 09/24/241950 > Date _ Pedro Inman Signature: Date CC: ~ Signed [facility]07-07-2025 Progress note Author Gage Hays [facility] Note Date/Time September 24, 2024 5:07p [facility] Medical Records Department [address] [place] [address] Progress Note - Hospitalist 09/24/24 1703 MR#: [id number] Acct: [id number] Name: JAEL HUGGINS Rep #:[id number] : 1945 79 From: Gage Hays DO PCP: Dr. Lucio Ayoub MD Status:ADM I N Location: [place] [address] Reason for Visit Reason for Visit: Diagnoses Hypothyroidism, unspecified (09/23/24) Mild cognitive impairment of uncertain or unknown etiology (09/23/24) Fracture of unspecified part of neck of left femur, initial encounter for closedfracture (09/23/24) Displaced intertrochanteric fracture of left femur, initial encounter for closedfracture (09/23/24) Unspecified fall, initial encounter (09/23/24) Personal history of (healed) traumatic fracture (09/23/24) Subjective Subjective Patient was seen and examined today, she is due to go to surgery today for repair of a hip fracture, she does not have any questions for this examiner. Objective Data Objective Data Vital Signs: Vital Signs Temp Pulse Resp BP Pulse Ox O2 Del Method O2 Flow Rate 98.4 F 103 H 16 95/72 96 Nasal Cannula 2 09/24/24 16:35 09/24/24 17:00 09/24/24 17:00 09/24/24 17:00 09/24/24 17:00 09/24/24 17:00 09/24/24 17:00 Oxygen Flow Rate (L/min) 2 Oxygen Delivery Method Nasal Cannula Weight: 73.3 kg Body Mass Index (BMI) 25.9 Intake & Output: Intake and Output for Last 24 Hours 09/22/24 09/23/24 09/24/24 23:59 23:59 23:59 Intake Total 2250 / 2250 Output Total 400 / 600 600 / 600 Balance 1850 / 1650 -600 / -600 Lab / Micro Data 09/24/24 04:05 09/24/24 04:05 Labs: Laboratory Results - last 24 hr 09/24/24 04:05: WBC 6.6, RBC 3.38 L, Hgb 9.9 L, Hct 30.4 L, MCV 89.9, MCH 29.3, MCHC 32.6, RDW Std Deviation 45.1 H, RDW Coeff of Rosita 13.7, Plt Count 207, MPV 9.7, Immature Gran % (Auto) 0.300, Neut % (Auto) 68.7, Lymph % (Auto) 20.8, [place]% (Auto) 8.2, Eos % (Auto) 1.7, Baso % (Auto) 0.3, Absolute Neuts (auto) 4.6, Absolute Lymphs (auto) 1.38, Nucleated RBC % 0, APTT 36.0, Sodium 136, Potassium3.7, Chloride 106, Carbon Dioxide 21.2, Anion Gap 9, BUN 12, Creatinine 0.77, Estim Creat Clear Calc 58.17, Est GFR (MDRD) Non-Af 78, BUN/Creatinine Ratio 15.9, Glucose 111 H, Calcium 8.9, Total Bilirubin 0.70, AST 25, ALT 21, AlkalinePhosphatase 115 H, Total Protein 5.9, Albumin 3.6, Globulin 2.2, Albumin/Globulin Ratio 1.6, TSH 4.120 Radiography Diagnostic Testing: Radiology Impression C-Arm Fluoroscopy 09/24/24 15:00 IMPRESSION: Intraoperative fluoroscopy was performed for left femoral fracture fixation including placement of an intramedullary nail with proximal and distal interlocking screws. 9 fluoroscopic images were also obtained. Reading Location: [id number] Hip X-Ray 09/24/24 15:00 IMPRESSION: Intraoperative fluoroscopy was performed for left femoral fracture fixation including placement of an intramedullary nail with proximal and distal interlocking screws. 9 fluoroscopic images were also obtained. Reading Location: [id number] Physical Exam Const alert, oriented x3, no apparent distress and average body habitus General Appearance: cooperative, well kempt and well developed Orientation / Consciousness: awake, oriented to person, oriented to place and oriented to time HEENT normocephalic, head/scalp atraumatic and moist oral mucous membranes Eyes PERRL, EOMs intact bilaterally and conjunctivae normal Neck supple, no JVD, thyroid normal and no carotid bruits General: trachea midline Resp normal respiratory effort, no retractions, no use of accessory muscles and clearto auscultation bilaterally Auscultation: Negative for rales, rhonchi or wheezes Cardio regular rate, regular rhythm, S1 normal heart sound, S2 normal heart sound, no murmurs, no rub and no gallops GI normal to inspection, nondistended, normoactive bowel sounds, soft to palpation,non-tender and non-distended Extremity no clubbing, cyanosis or edema Skin no rashes or lesions noted General Skin Exam: no breakdown Neuro oriented x3, CN's II-XII intact bilaterally, no focal motor deficits and no sensory deficits noted Sensorium / Orientation: awake and alert Speech: speech normal Psych Psych Narrative: Patient exhibits some mild cognitive impairment Assessment & Plan Assessment/Plan (1) Intertrochanteric fracture of left hip: QUALIFIERS: Encounter type: initial encounter Fracture type: closed Fracture alignment: displaced Qualified Code(s): S72.142A - Displaced intertrochanteric fracture of left femur, initial encounter for closed fracture PLAN: Plan 1. Intertrochanteric fracture of the left hip-patient is due to undergo surgeryfor repair today, PT and OT will see the patient in follow-up, she may need temporary placement in a [place] [facility] for [facility] services #2 Alzheimer's disease-patient has a history of mild cognitive impairment, complicates care, management, recovery, and prognosis #3 hypothyroidism-patient is on Synthroid #4 GERD-patient is on a PPI Total clinical time spent by myself addressing the patient's medical issues, reviewing all of her data, and collaborating with patient's care team: 35 minutes Charges/Coding Visit Charges Inpatient E&M: 13486 Subs Hosp L2 09/24/24 6486 <Electronically signed by Gage Hays DO> Cosigner Signature (if applicable): CC: ~ Signed [facility] Work Phone: 1(553) 565-665307-07-2025 Consult note Author Dave Weber [facility] Note Date/Time September 24, 2024 4:35p m [facility] Medical Records Department [address] [place] [address] Anesthesia Postop Eval I 09/24/24 1634 MR#: [id number] Acct: [id number] Name: BHAVNAMAI Rep #:[id number] : 1945 79 From: Dave Weber CRNA PCP: Dr. Lucio Ayoub MD Status:ADM I N Y Race: C Location: [place] [address] Anesthesia: Postop Eval I Current Vital Signs Temperature: 98.4 F Pulse Rate: 89 Blood Pressure: 141/67 Respiratory Rate: 12 Pulse Ox: 95 Oxygen Delivery Method: Room Air Assessment Airway patent: Yes Spontaneous unlabored respirations: Yes Mental status: Asleep nausea: No Vomiting: No Anesthesia Complication: No Fluid Hydration Crystalloid volume administer (ml): 700 Total IV fluid infused: 700 Progress Note Anesthesia document: Postop Eval 1 completed: Yes 09/24/241634 <Electronically signed by Dave medrano CRNA> Date _ Dave Weber CRNA Cosigner Signature: Date CC: ~ Signed [facility] Work Phone: [phone] Progress note [facility] Medical Records Department [address] [address] Progress Note - Hospitalist 09/24/24 1703 MR#: [id number] Acct: [id number] Name: JAEL HUGGINS JEAN Rep #:[id number] : 1945 79 From: Gage Hays DO PCP: Dr. Lucio Ayoub MD Status:ADM I N Location: [place] [address] Reason for Visit Reason for Visit: Diagnoses Hypothyroidism, unspecified (09/23/24) Mild cognitive impairment of uncertain or unknown etiology (09/23/24) Fracture of unspecified part of neck of left femur, initial encounter for closedfracture (09/23/24) Displaced intertrochanteric fracture of left femur, initial encounter for closedfracture (09/23/24) Unspecified fall, initial encounter (09/23/24) Personal history of (healed) traumatic fracture (09/23/24) Subjective Subjective Patient was seen and examined today, she is due to go to surgery today for repair of a hip fracture, she does not have any questions for this examiner. Objective Data Objective Data Vital Signs: Vital Signs Temp Pulse Resp BP Pulse Ox O2 Del Method O2 Flow Rate 98.4 F 103 H 16 95/72 96 Nasal Cannula 2 09/24/24 16:35 09/24/24 17:00 09/24/24 17:00 09/24/24 17:00 09/24/24 17:00 09/24/24 17:00 09/24/24 17:00 Oxygen Flow Rate (L/min) 2 Oxygen Delivery Method Nasal Cannula Weight: 73.3 kg Body Mass Index (BMI) 25.9 Intake & Output: Intake and Output for Last 24 Hours 09/22/24 09/23/24 09/24/24 23:59 23:59 23:59 Intake Total 2250 / 2250 Output Total 400 / 600 600 / 600 Balance 1850 / 1650 -600 / -600 Lab / Micro Data 09/24/24 04:05 09/24/24 04:05 Labs: Laboratory Results - last 24 hr 09/24/24 04:05: WBC 6.6, RBC 3.38 L, Hgb 9.9 L, Hct 30.4 L, MCV 89.9, MCH 29.3, MCHC 32.6, RDW Std Deviation 45.1 H, RDW Coeff of Rosita 13.7, Plt Count 207, MPV 9.7, Immature Gran % (Auto) 0.300, Neut % (Auto) 68.7, Lymph % (Auto) 20.8, [place]% (Auto) 8.2, Eos % (Auto) 1.7, Baso % (Auto) 0.3, Absolute Neuts (auto) 4.6, Absolute Lymphs (auto) 1.38, Nucleated RBC % 0, APTT 36.0, Sodium 136, Potassium3.7, Chloride 106, Carbon Dioxide 21.2, Anion Gap 9, BUN 12, Creatinine 0.77, Estim Creat Clear Calc 58.17, Est GFR (MDRD) Non-Af 78, BUN/Creatinine Ratio 15.9, Glucose 111 H, Calcium 8.9, Total Bilirubin 0.70, AST 25, ALT 21, AlkalinePhosphatase 115 H, Total Protein 5.9, Albumin 3.6, Globulin 2.2, Alb umin/Globulin Ratio 1.6, TSH 4.120 Radiography Diagnostic Testing: Radiology Impression C-Arm Fluoroscopy 09/24/24 15:00 IMPRESSION: Intraoperative fluoroscopy was performed for left femoral fracture fixation including placement of an intramedullary nail with proximal and distal interlocking screws. 9 fluoroscopic images were also obtained. Reading Location: [address] Hip X-Ray 09/24/24 15:00 IMPRESSION: Intraoperative fluoroscopy was performed for left femoral fracture fixation including placement of an intramedullary nail with proximal and distal interlocking screws. 9 fluoroscopic images were also obtained. Reading Location: [address] Physical Exam Const alert, oriented x3, no apparent distress and average body habitus General Appearance: cooperative, well kempt and well developed Orientation / Consciousness: awake, oriented to person, oriented to place and oriented to time HEENT normocephalic, head/scalp atraumatic and moist oral mucous membranes Eyes PERRL, EOMs intact bilaterally and conjunctivae normal Neck supple, no JVD, thyroid normal and no carotid bruits General: trachea midline Resp normal respiratory effort, no retractions, no use of accessory muscles and clearto auscultation bilaterally Auscultation: Negative for rales, rhonchi or wheezes Cardio regular rate, regular rhythm, S1 normal heart sound, S2 normal heart sound, no murmurs, no rub and no gallops GI normal to inspection, nondistended, normoactive bowel sounds, soft to palpation,non-tender and non-distended Extremity no clubbing, cyanosis or edema Skin no rashes or lesions noted General Skin Exam: no breakdown Neuro oriented x3, CN's II-XII intact bilaterally, no focal motor deficits and no sensory deficits noted Sensorium / Orientation: awake and alert Speech: speech normal Psych Psych Narrative: Patient exhibits some mild cognitive impairment Assessment & Plan Assessment/Plan (1) Intertrochanteric fracture of left hip: QUALIFIERS: Encounter type: initial encounter Fracture type: closed Fracture alignment: displaced Qualified Code(s): S72.142A - Displaced intertrochanteric fracture of left femur, initial encounter for closed fracture PLAN: Plan 1. Intertrochanteric fracture of the left hip-patient is due to undergo surgeryfor repair today, PTand OT will see the patient in follow-up, she may need temporary placement in a [place] [facility] facility for rehab services #2 Alzheimer's disease-patient has a history of mild cognitive impairment, complicates care, management, recovery, and prognosis #3 hypothyroidism-patient is on Synthroid #4 GERD-patient is on a PPI Total clinical time spent by myself addressing the patient's medical issues, reviewing all of her data, and collaborating with patient's care team: 35 minutes Charges/Coding Visit Charges Inpatient E&M: 18489 Subs Hosp L2 09/24/24 1707 Cosigner Signature (if applicable): CC: ~ Signed [facility]07-07-2025 Procedure note [facility] Medical Records Department [address] [place] [address] Operative Report 09/24/24 1637 MR#: [id number] Acct: [id number] Name: JAEL HUGGINS Rep #:[id number] : 1945 79 From: Braxton Salas DO PCP: Dr. Lucio Ayoub MD Status:ADM I N Location: [place] [address] Operative Report (Standard) Operative Information Date of Procedure: 09/24/24 Pre-Operative Diagnosis: Left hip intertrochanteric femur fracture with comminution Post-Operative Diagnosis: Same Surgery/Procedure Performed: Cephalomedullary fixation left femur workplace trainer and assessor: No Type of Anesthesia: General RN Documented Start/Stop Times: Operation Date: 09/24/24 14:30 Case Time Into Pre-Op 09/24/24 13:30 Out of Pre-Op 09/24/24 14:32 Anesthesia Start 09/24/24 14:37 Into Room 09/24/24 14:37 Procedure Start 09/24/24 15:09 Procedure End 09/24/24 16:22 Anesthesia End 09/24/24 16:28 Out of Room 09/24/24 16:28 Procedure Start Time: 15:09 Procedure Stop Time: 16:22 Select all DRAINS/GRAFTS/IMPLANTS that apply: None Estimated Blood Loss: 25 Specimen collected: No Description of surgery: Preoperative diagnosis: [Left] hip [intertrochanteric femur fracture with reverse obliquity fracture pattern] Postoperative diagnosis: Same Procedure: Cephalo-medullary fixation [left] hip Implants: Synthes long nail [id number], [ 90] mm helical blade, 2 distal locking screws Anesthesia: General EBL: 25 Complications: None Condition: Stable to PACU Indication for procedure: 79-year-old female patient with ground-level fall sustaining injury to the left hip. fracture demonstrated [intertrochanteric femur fracture with reverse obliquity pattern],risk benefits and alternatives were reviewed including risk of bleeding infection nerve, artery, bone, tissue damage, blood clot, RSD need for further surgery and continued pain. Procedure: Patient met in the preoperative holding area once again the operativeextremity was identified by both patient and physician and was marked. Patient was met by anesthesia and IV was startedshe was brought back to the to the operating room anesthesia was started. She was then positioned on the fracture table all bony prominences were well-padded. She was then positioned with adduction internal rotation and traction and fluoroscopy was brought in to ensure that an adequate reduction could be performed. Patient was then prepped and draped in usual sterile fashion and timeout was called to ensure the proper patient procedure and extremity were being contemplated. Fluoroscopy was usedto gage the tip of the greater trochanter and a 3 fingerbreadth incision was made 2 finger breaths proximal to the tip of the greater trochanter. Was carried carried down through the skin and subcutaneous tissue as well as the gluteal fascia. A guide pin was then inserted through the tip of the greater trochanter directed towards the level of lesser trochanter this was checked in both AP and lateral projections. An opening reamer was performed. A guide pin was bent and placed down the femoral canal to the level of the superior patella then measured this and placed the corresponding length nail after flexible reamers were used to achieve cortical chatter and achieving 1.5 mm greater than thenail was chosen . following this was the insertion of the nail the appropriate height jig was used and a triple trocar sleeve was advanced to the skin and a stab incision was made at the trocar was inserted to the level of thebone and a guidepin was placed into the femoral neck and head checked on both APand lateral projections. This was then measured and appropriately sized helicalblade was inserted the nail was locked proximally to allow dynamic compression, the fracture was compressed and a locking screw was placed distally using perfect washoe technique. This was then drilled and measuredunder fluoroscopy and the appropriate size screw was inserted. Final AP and lateral projections were saved to the PACS system of the entire construct. the wounds were thoroughly irrigated the fascia was closed with #1 [id number] Vicryls followed by 2-0 Vicryl in the subcutaneous tissues followed by cedrick in the skin. 0.5% Marcaine with epinephrine was injected into the subcutaneous tissuesdressing was applied form of Xeroform 4 x 4 ABD and Ioban tape. Patient tolerated procedure well there is no intraoperative complications she was brought back to the PACU in stable condition. Surgical Findings: Comminuted intertrochanteric femur fracture Complications Complications: No 09/24/24 1639 Cosigner Signature (if applicable): CC: Dr. Vic Marques DO; Dr. Braxton Salas DO; Dr. Jensen Cali MD; Dr. Lucio Ayoub MD~ Signed [facility]07-07-2025 Consult note [facility] Medical Records Department [address] [place] [address] Anesthesia Postop Eval I 09/24/24 1634 MR#: [id number] Acct: [id number] Name: JAEL HUGGINS Rep #:[id number] : 1945 79 From: Dave Weber CRNA PCP: Dr. Lucio Ayoub MD Status:ADM I N Y Race: C [place] [facility] [place] Anesthesia: Postop Eval I Current Vital Signs Temperature: 98.4 F Pulse Rate: 89 Blood Pressure: 141/67 Respiratory Rate: 12 Pulse Ox: 95 Oxygen Delivery Method: Room Air Assessment Airway patent: Yes Spontaneous unlabored respirations: Yes Mental status: Asleep nausea: No Vomiting: No Anesthesia Complication: No Fluid Hydration Crystalloid volume administer (ml): 700 Total IV fluid infused: 700 Progress Note Anesthesia document: Postop Eval 1 completed: Yes 09/24/24 1635 n INFRASTRUCTURE CONSULTANT> Date _ Dave Tia INFRASTRUCTURE CONSULTANT Cosigner Signature: Date CC: ~ Signed [facility]07-07-2025 Radiology Diagnostic study note [facility] Imaging Services [address] [place] [address] Hip Min 2 Views (Portable) MR#: [id number] Acct: [id number] Name: JAEL HUGGINS Rep #: [id number] : 1945 F 79 From: Reinier Hobson MD PCP: Dr. Lucio Ayoub MD Status: ADM I N Study:Hip Min 2 Views (Portable) Date of Exam : 09/24/24 Exam# [id number] Ordering Dr: Braxton Salas DO PROCEDURE: HIP MIN 2 VIEWS (PORTABLE); O.R. FLUORO FOR C-ARM 09/24/2024 REASON FOR EXAM: TROCHANTERIC FIXATION; HIP FIXATION TECHNIQUE: HIP MIN 2 VIEWS (PORTABLE); O.R. FLUORO FOR C-ARM Fluoroscopy time: 95.9 seconds. Dose: 14.53 mGy. COMPARISON: Left hip and pelvis of 09/23/2024 RAD/Hip Min 2 Views (Portable) IMPRESSION: Intraoperative fluoroscopy was performed for left femoral fracture fixation including placement of an intramedullary nail with proximal and distal interlocking screws. 9 fluoroscopic images were also obtained. Reading Location: [address] CC: Dr. Braxton Salas DO; Dr. Lucio Ayoub MD ~ Health And Safety Instructor: Signed [facility]07-07-2025 Radiology Diagnostic study note [facility] Imaging Services [address] [place] [address] O.R. Fluoro for C-Arm MR#: [id number] Acct: [id number] Name: JAEL HUGGINS Rep #: [id number] : 1945 F 79 From: Reinier Hobson MD PCP: Dr. Lucio Ayoub MD Status: ADM I N Study:O.R. Fluoro for C-Arm Date of Exam: 09/24/24 Exam# [id number] Ordering Dr: Braxton Salas DO PROCEDURE: HIP MIN 2 VIEWS (PORTABLE); O.R. FLUORO FOR C-ARM 09/24/2024 REASON FOR EXAM: TROCHANTERIC FIXATION; HIP FIXATION TECHNIQUE: HIP MIN 2 VIEWS (PORTABLE); O.R. FLUORO FOR C-ARM Fluoroscopy time: 95.9 seconds. Dose: 14.53 mGy. COMPARISON: Left hip and pelvis of 09/23/2024 RAD/O.R. Fluoro for C-Arm IMPRESSION: Intraoperative fluoroscopy was performed for left femoral fracture fixation including placement of an intramedullary nail with proximal and distal interlocking screws. 9 fluoroscopic images were also obtained. Reading Location: [address] CC: Dr. Braxton Salas DO; Dr. Lucio Ayoub MD ~ Health And Safety Instructor: Signed [facility]07-07-2025 Consult note Author Pedro Hewitt [facility] Note Date/Time September 24, 2024 1:48p m [facility] Medical Records Department [address] [place] [address] Pre-Anesthesia Evaluation 09/24/24 1348 MR#: [id number] Acct: [id number] Name: JAEL HUGGINS Rep #:[id number] : 1945 79 From: Pedro Hewitt MD PCP: Dr. Lucio Ayoub MD Status:ADM I N Y Race: C Location: [id number] -1 ASA Classification* ASA Classification ASA Classification: 2 Assessment & Plan Anesthesia* Anesthesia Assessment Anesthesia Assessment: Discussed sedation and/or anesthesia options, risks, benefits, and alternatives with patient/parents/legal guardian/POA. Questions invited. The patient/parents/legal guardian/POA seems to understand and agrees to proceedwith anesthesia plan. Reviewed the physical assessment, medical history, allergy history and patient home medications list prior to surgery/procedure/anesthetic and documented any changes. Performed airway and anesthesia risk assessments. Anesthesia Type Anesthesia Type: General Anesthesia Focused Assessment* Temperature: 97.8 F Pulse Rate: 89 Blood Pressure: 150/74 Respiratory Rate: 18 Pulse Ox: 98 Airway Assessment Mouth opens: >3 cm Mallampati Score: II Labs Anesthesia Preop lab: CBC WBC 6.6 K/mm3 (4.4-11.0) 09/24/24 04:05 09/24/24 RBC 3.38 M/mm3 (4.2-5.4) L 09/24/24 04:05 09/24/24 Hgb 9.9 g/dL (12.0-15.0) L 09/24/24 04:05 09/24/24 Hct 30.4 % (37-47) L 09/24/24 04:05 09/24/24 Plt Count 207 K/mm3 (150-450) 09/24/24 04:05 09/24/24 CHEMISTRY Potassium 3.7 mmol/L (3.3-5.1) 09/24/24 04:05 09/24/24 Sodium 136 mmol/L (133-145) 09/24/24 04:05 09/24/24 Magnesium 2.2 mg/dL (1.5-2.2) 09/23/24 01:20 09/23/24 BUN 12 mg/dL (4-19) 09/24/24 04:05 09/24/24 Creatinine 0.77 mg/dL (0.70-1.20) 09/24/24 04:05 09/24/24 Glucose 111 mg/dL (70-99) H 09/24/24 04:05 09/24/24 TSH 4.120 uIU/mL (0.300-4.200) 09/24/24 04:05 10/12 COAG PT 12.5 SECONDS (11.7-14.9) 01/29/22 07:45 Pre-Assessment Diagnosis/Proposed Procedure Planned Operative Procedure(s): Left hip nail placement. 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 When Was Last Pacemaker Check QUESTION #4 FULL TEXT: You/Your Family Experience fever (hyperthermia) with Anesthesia Last Oral Intake Last Oral intake: Last Oral Intake NPO since Meds taken in AM with sips of water? Meds patient instructed to take am of surgery PONV PONV - assistant chief train dispatcher: PONV - assistant chief train dispatcher Female HX of Motion Sickness HX of N/V After Surgery Non-Smoker Duration of Surgery greater than 60 minutes Number of Risk Factors PONV Score Height & Weight Height & Weight: Anesthesia: Height & Weight Height 5 ft 6 in 09/23/24 03:57 Weight: 73.3 kg 09/24/24 06:00 Body Mass Index (BMI) 25.9 09/24/24 06:00 Respiratory Assessment Respiratory Assessment - assistant chief train dispatcher: Respiratory Tract Infection Hx - assistant chief train dispatcher Hx Respiratory Tract Infection No 09/23/24 20:18 STOP Sleep Apnea STOP Sleep Apnea - assistant chief train dispatcher: STOP Sleep Apnea - assistant chief train dispatcher Hx Hypertension No 09/23/24 03:57 Hx Sleep Apnea No 09/23/24 03:57 CPAP BIPAP Do you snore loudly (louder No 09/23/24 03:57 than talking or can be heard Do you often feel tired/ No 09/23/24 03:57 fatigued/ sleepy during daytime? Has anyone observed you stop No 09/23/24 03:57 breathing during sleep? STOP Results Negative 09/23/24 03:57 QUESTION #5 FULL TEXT : Do you snore loudly (louder than talking or can be heard through closed doors)? Tobacco Use History Tobacco Use History - assistant chief train dispatcher: Tobacco Use History - assistant chief train dispatcher Tobacco Use Smoking Status Never smoker 09/23/24 09:48 Hx Tobacco Use Yes 09/23/24 03:57 Years Smoking Packs Smoked per Day Smoking Cessation Date was within the last 15 years Hx Smoking Cessation Date 03/21/93 09/23/24 03:57 Hx Smoking Cessation Counseling Hematologic Medial History Hematologic Hx - assistant chief train dispatcher: Hematologic Medical Hx - systems applications programming lead Hx of Blood Transfusion No 09/23/24 03:57 Hx of Transfusion in last 3 No 09/23/24 03:57 Months Date of Last Transfusion (if within last 3 months) Ever experience any problems No 09/23/24 03:57 with transfusion(s)? Specify any problems Hx of Preganancy in last 3 N/A 09/23/24 03:57 Months Nurse Filling Out Transfusion LSMITH 09/23/24 03:57 & Questions: Date: 09/23/24 09/23/24 03:57 Time: 04:03 09/23/24 03:57 Patient unable to answer at this time (ie. confused, unrespo /Reproduction History /Reproductive History - assistant chief train dispatcher: /Reproductive Hx- assistant chief train dispatcher Hx Now No 09/23/24 20:18 Gestational Age (in weeks): EDC: Hx Hx Para Hx Section SAB No 09/23/24 20:18 Active Medications Active Medications: Current Medications Generic Name Dose Route Start Last Admin Trade Name Freq PRN Reason Stop Dose Admin Acetaminophen 650 mg 09/23/24 03:57 09/24/24 02:18 Acetaminophen 325 Mg Tablet PO 650 mg Q6H PRN PRN Administration Pain 1-5/10 or Fever Al Hydroxide/Mg Hydroxide 30 ml 09/23/24 03:57 Mag Hydrox/Al Hydrox/Simeth 30 Ml Udc PO Q6H PRN PRN Gastric Burning Heparin Sodium (Porcine) 5,000 unit 09/23/24 10:00 09/24/24 07:30 Heparin Injection (Vial) 5,000 Unit/Ml Vial SC Not Given BID GEOVANNA Hydromorphone HCl 0.5 mg 09/23/24 03:57 09/24/24 10:54 Hydromorphone 0.5 Mg/0.5 Ml Syringe IV 0.5 mg Q4H PRN PRN Administration Pain Score 6-10 Lactated Ringer's 1,000 mls @ 15 mls/hr 09/24/24 13:45 IV .Q48H GOEVANNA Levothyroxine Sodium 75 mcg 09/23/24 06:00 09/24/24 06:20 Levothyroxine 75 Mcg Tablet PO 75 mcg DAILY@0600 GEOVANNA Administration Magnesium Hydroxide 30 ml 09/23/24 03:57 Magnesium Hydroxide 30 Ml Udc PO DAILY PRN PRN Constipation Melatonin 3 mg 09/23/24 03:57 Melatonin 3 Mg Tablet PO QHS PRN PRN INSOMNIA Ondansetron HCl 4 mg 09/23/24 03:57 Ondansetron 4 Mg/2 Ml Vial IV Q8H PRN PRN NAUSEA/VOMITING Oxycodone HCl 2.5 - 5 mg 09/23/24 08:26 09/24/24 09:23 Oxycodone 5 Mg Tablet PO 5 mg Q4H PRN PRN Administration Pain Score 4-10 Pantoprazole Sodium 40 mg 09/23/24 10:00 09/24/24 07:30 Pantoprazole Sodium 40 Mg Tablet PO Not Given DAILY GEOVANNA Sodium Chloride 10 - 40 ml 09/23/24 03:59 09/24/24 10:54 0.9% Saline Lock 10 Ml Syringe IV 10 ml UD PRN Administration SALINE FLUSH PFSH Medical History Frontal dementia Contusion of right knee Strain of right knee Hemorrhoids Family history of breast cancer Thyroid disease Breast mass, right Abnormal mammogram of right breast Home Medications ?Medication ?Instructions ?Recorded ?Last Taken ?Type levothyroxine 75 mcg tablet 75 mcg PO DAILY THYROID Unknown History pantoprazole 40 mg tablet,delayed 40 mg PO DAILY GERD 09/23/24 Unknown History release Allergy/AdvReac Type Severity Reaction Status Date / Time No Known Allergies Allergy Verified 08/01/24 09:56 Family History Mother Breast cancer Sister Breast cancer Sister Lymphoma Surgical History History of right breast biopsy (~03/2020) History of partial hysterectomy Social History household members: none Smoking Status: Never smoker second hand exposure: No alcohol intake: never substance use type: does not use Review of Systems (Anesthesia) ROS Narrative System reviewed and no additional complaints, except as documented. 09/24/241347 <Electronically signed by Pedro Hewitt MD > Date _ Pedro Hewitt MD Cosigner Signature: Date CC: ~ Signed [facility] Work Phone: [phone]) 617-941707-07-2025 Consult note [facility] Medical Records Department [address] [place] [address] Pre-Anesthesia Evaluation 09/24/241347 MR#: [id number] Acct: [id number] Name: JAEL HUGGINS Rep #:[id number] : 1945 79 From: Pedro Hewitt MD PCP: Dr. Lucio Ayoub MD Status:ADM I N Y Race: C Location: [place] [address] -1 ASA Classification* ASA Classification ASA Classification: 2 Assessment & Plan Anesthesia* Anesthesia Assessment Anesthesia Assessment: Discussed sedation and/or anesthesia options, risks, benefits, and alternatives with patient/parents/legal guardian/POA. Questions invited. The patient/parents/legal guardian/POA seems to understand and agrees to proceedwith anesthesia plan. Reviewed the physical assessment, medical history, allergy history and patient home medications list prior to surgery/procedure/anesthetic and documented any changes. Performed airway and anesthesia risk assessments. Anesthesia Type Anesthesia Type: General Anesthesia Focused Assessment* Temperature: 97.8 F Pulse Rate: 89 Blood Pressure: 150/74 Respiratory Rate: 18 Pulse Ox: 98 Airway Assessment Mouth opens: >3 cm Mallampati Score: II Labs Anesthesia Preop lab: CBC WBC 6.6 K/mm3 (4.4-11.0) 09/24/24 04:05 09/24/24 RBC 3.38 M/mm3 (4.2-5.4) L 09/24/24 04:05 09/24/24 Hgb 9.9 g/dL (12.0-15.0) L 09/24/24 04:05 09/24/24 Hct 30.4 % (37-47) L 09/24/24 04:05 09/24/24 Plt Count 207 K/mm3 (150-450) 09/24/24 04:05 09/24/24 CHEMISTRY Potassium 3.7 mmol/L (3.3-5.1) 09/24/24 04:05 09/24/24 Sodium 136 mmol/L (133-145) 09/24/24 04:05 09/24/24 Magnesium 2.2 mg/dL (1.5-2.2) 09/23/24 01:20 09/23/24 BUN 12 mg/dL (4-19) 09/24/24 04:05 09/24/24 Creatinine 0.77 mg/dL (0.70-1.20) 09/24/24 04:05 09/24/24 Glucose 111 mg/dL (70-99) H 09/24/24 04:05 09/24/24 TSH 4.120 uIU/mL (0.300-4.200) 09/24/24 04:05 10/12 COAG PT 12.5 SECONDS (11.7-14.9) 01/29/22 07:45 Pre-Assessment Diagnosis/Proposed Procedure Planned Operative Procedure(s): Left hip nail placement. 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 When Was Last Pacemaker Check QUESTION #4 FULL TEXT: You/Your Family Experience fever (hyperthermia) with Anesthesia Last Oral Intake Last Oral intake: Last Oral Intake NPO since Meds taken in AM with sips of water? Meds patient instructed to take am of surgery PONV PONV - assistant chief train dispatcher: PONV - assistant chief train dispatcher Female HX of Motion Sickness HX of N/V After Surgery Non-Smoker Duration of Surgery greater than 60 minutes Number of Risk Factors PONV Score Height & Weight Height & Weight: Anesthesia: Height & Weight Height 5 ft 6 in 09/23/24 03:57 Weight: 73.3 kg 09/24/24 06:00 Body Mass Index (BMI) 25.9 09/24/24 06:00 Respiratory Assessment Respiratory Assessment - assistant chief train dispatcher: Respiratory Tract Infection Hx - assistant chief train dispatcher Hx Respiratory Tract Infection No 09/23/24 20:18 STOP Sleep Apnea STOP Sleep Apnea - assistant chief train dispatcher: STOP Sleep Apnea - assistant chief train dispatcher Hx Hypertension No 09/23/24 03:57 Hx Sleep Apnea No 09/23/24 03:57 CPAP BIPAP Do you snore loudly (louder No 09/23/24 03:57 than talking or can be heard Do you often feel tired/ No 09/23/24 03:57 fatigued/ sleepy during daytime? Has anyone observed you stop No 09/23/24 03:57 breathing during sleep? STOP Results Negative 09/23/24 03:57 QUESTION #5 FULL TEXT : Do you snore loudly (louder than talking or can be heard through closeddoors)? Tobacco Use History Tobacco Use History - assistant chief train dispatcher: Tobacco Use History - assistant chief train dispatcher Tobacco Use Smoking Status Never smoker 09/23/24 09:48 Hx Tobacco Use Yes 09/23/24 03:57 Years Smoking Packs Smoked per Day Smoking Cessation Date was within the last 15 years Hx Smoking Cessation Date 03/21/93 09/23/24 03:57 Hx Smoking Cessation Counseling Hematologic Medial History Hematologic Hx - assistant chief train dispatcher: Hematologic Medical Hx - systems applications programming lead Hx of Blood Transfusion No 09/23/24 03:57 Hx of Transfusion in last 3 No 09/23/24 03:57 Months Date of Last Transfusion (if within last 3 months) Ever experience any problems No 09/23/24 03:57 with transfusion(s)? Specify any problems Hx of Preganancy in last 3 N/A 09/23/24 03:57 Months Nurse Filling Out Transfusion LSMITH 09/23/24 03:57 & Questions: Date: 09/23/24 09/23/24 03:57 Time: 04:03 09/23/24 03:57 Patient unable to answer at this time (ie. confused, unrespo /Reproduction History /Reproductive History - assistant chief train dispatcher: /Reproductive Hx- assistant chief train dispatcher Hx Now No 09/23/24 20:18 Gestational Age (in weeks): EDC: Hx Hx Para Hx Section SAB No 09/23/24 20:18 Active Medications Active Medications: Current Medications Generic Name Dose Route Start Last Admin Trade Name Freq PRN Reason Stop Dose Admin Acetaminophen 650 mg 09/23/24 03:57 09/24/24 02:18 Acetaminophen 325 Mg Tablet PO 650 mg Q6H PRN PRN Administration Pain 1-5/10 or Fever Al Hydroxide/Mg Hydroxide 30 ml 09/23/24 03:57 Mag Hydrox/Al Hydrox/Simeth 30 Ml Udc PO Q6H PRN PRN Gastric Burning Heparin Sodium (Porcine) 5,000 unit 09/23/24 10:00 09/24/24 07:30 Heparin Injection (Vial) 5,000 Unit/Ml Vial SC Not Given BID GEOVANNA Hydromorphone HCl 0.5 mg 09/23/24 03:57 09/24/24 10:54 Hydromorphone 0.5 Mg/0.5 Ml Syringe IV 0.5 mg Q4H PRN PRN Administration Pain Score 6-10 Lactated Ringer's 1,000 mls @ 15 mls/hr 09/24/24 13:45 IV .Q48H GEOVANNA Levothyroxine Sodium 75 mcg 09/23/24 06:00 09/24/24 06:20 Levothyroxine 75 Mcg Tablet PO 75 mcg DAILY@0600 GEOVANNA Administration Magnesium Hydroxide 30 ml 09/23/24 03:57 Magnesium Hydroxide 30 Ml Udc PO DAILY PRN PRN Constipation Melatonin 3 mg 09/23/24 03:57 Melatonin 3 Mg Tablet PO QHS PRN PRN INSOMNIA Ondansetron HCl 4 mg 09/23/24 03:57 Ondansetron 4 Mg/2 Ml Vial IV Q8H PRN PRN NAUSEA/VOMITING Oxycodone HCl 2.5 - 5 mg 09/23/24 08:26 09/24/24 09:23 Oxycodone 5 Mg Tablet PO 5 mg Q4H PRN PRN Administration Pain Score 4-10 Pantoprazole Sodium 40 mg 09/23/24 10:00 09/24/24 07:30 Pantoprazole Sodium 40 Mg Tablet PO Not Given DAILY GEOVANNA Sodium Chloride 10 - 40 ml 09/23/24 03:59 09/24/24 10:54 0.9% Saline Lock 10 Ml Syringe IV 10 ml UD PRN Administration SALINE FLUSH PFSH Medical History Frontal dementia Contusion of right knee Strain of right knee Hemorrhoids Family history of breast cancer Thyroid disease Breast mass, right Abnormal mammogram of right breast Home Medications ?Medication ?Instructions ?Recorded ?Last Taken ?Type levothyroxine 75 mcg tablet 75 mcg PO DAILY THYROID Unknown History pantoprazole 40 mg tablet,delayed 40 mg PO DAILY GERD 09/23/24 Unknown History release Allergy/AdvReac Type Severity Reaction Status Date / Time No Known Allergies Allergy Verified 08/01/24 09:56 Family History Mother Breast cancer Sister Breast cancer Sister Lymphoma Surgical History History of right breast biopsy (~03/2020) History of partial hysterectomy Social History household members: none Smoking Status: Never smoker second hand exposure: No alcohol intake: never substance use type: does not use Review of Systems (Anesthesia) ROS Narrative System reviewed and no additional complaints, except as documented. 09/24/24 1348 > Date _ Pedro Hewitt MD [place] Signature: Date CC: ~ Signed [facility]07-06-2025 Consult note Author Braxton Salas [facility] Note Date/Time September 23, 2024 3:15p m [facility] Medical Records Department [address] [place] [address] Consultation 09/23/24 1511 MR#: [id number] Acct: [id number] Name: JAEL HUGGINS Rep #:[id number] : 1945 79 From: Braxton Salas DO PCP: Dr. Lucio Ayoub MD Status:ADM I N Location: [place] [id number] Assessment & Plan Assessment/Plan (1) Intertrochanteric fracture of left hip: QUALIFIERS: Encounter type: initial encounter Fracture type: closed Fracture alignment: displaced Qualified Code(s): S72.142A - Displaced intertrochanteric fracture of left femur, initial encounter for closed fracture PLAN: Plan Comminuted displaced left hip intertrochanteric femur fracture with shortening In Antunez's traction 7 pounds Thorough discussion was had with with the patient and her daughter in regards tosurgical treatment of her left femur Response alternatives of cephalomedullary fixation were discussed. We discussedthat due to the comminution there is a possibility she may need to have restricted weightbearing postoperatively, I will determine this intraoperativelytomorrow. She was recently living in an assisted living facility and [place] [facility] [place] to returning back to this. Plan for surgery 09/24/2024 left femur cephalomedullary fixation consent signed placed in the chart Antibiotics and TXA on-call to the OR. HPI Consult Data Date of Consult: 09/23/24 HPI Narrative HPI Narrative: JAEL HUGGINS, is a 79 F who presents after ground-level fall at home in the bathroom onto her left side immediately had pain and inability ambulate but to the emergency room x-rays demonstrated a comminuted displaced and her trochanteric left femur fracture. Patient denies any other complaints or concerns at this time she is seen with her daughter at bedside the daughter states that she still signs her own medical consents and makes her medical decisions although recently diagnosed with frontal lobe dementia. [facility] Medical History Frontal dementia Contusion of right knee Strain of right knee Hemorrhoids Family history of breast cancer Thyroid disease Breast mass, right Abnormal mammogram of right breast Home Medications ?Medication ?Instructions ?Recorded ?Last Taken ?Type levothyroxine 75 mcg tablet 75 mcg PO DAILY THYROID Unknown History pantoprazole 40 mg tablet,delayed 40 mg PO DAILY GERD 09/23/24 Unknown History release Allergy/AdvReac Type Severity Reaction Status Date / Time No Known Allergies Allergy Verified 08/01/24 09:56 Family History Mother Breast cancer Sister Breast cancer Sister Lymphoma Surgical History History of right breast biopsy (~03/2020) History of partial hysterectomy Social History household members: none Smoking Status: Never smoker second hand exposure: No alcohol intake: never substance use type: does not use Physical Exam Const alert and no apparent distress General Appearance: cooperative and comfortable Extremity Extremity Narrative: Left lower extremity is slightly externally rotated and shortened she is in Antunez's traction. She does admit to chronic unchanged decree sensation light touch in her foot she had this before. She is able to wiggle her toes and move her ankle her compartments are soft there is no open wounds around the hip. Lab / Micro Data 09/23/24 01:20 09/23/24 01:20 Labs: Laboratory Results - last 24 hr 09/23/24 01:20: WBC 9.9, RBC 3.85 L, Hgb 11.3 L, Hct 34.6 L, MCV 89.9, MCH 29.4,MCHC 32.7, RDW Std Deviation 44.6 H, RDW Coeff of Rosita 13.5, Plt Count 265, MPV 9.7, Sodium 139, Potassium 3.7, Chloride 109 H, Carbon Dioxide 20.2 L, Anion Gap10, BUN 14, Creatinine 0.73, Estim Creat Clear Calc 58.39, Est GFR (MDRD) Non-Af84, BUN/Creatinine Ratio 18.5, Glucose 136 H, Calcium 8.7, Magnesium 2.2, TSH 3.060 09/23/24 05:41: Blood Type AB POSITIVE, Antibody Screen NEGATIVE 09/23/24 14:00: Urine Color Yellow, Urine Clarity Sl. Cloudy, Urine pH 6.0, Ur Specific [place] 1.025, Urine Protein 30 H, Urine Glucose (UA) Normal, Urine Ketones Negative, Urine Occult Blood 50 H, Urine Nitrite Positive H, Urine Bilirubin Negative, Urine Urobilinogen Normal, Ur Leukocyte Esterase 500 H, Urine RBC 0 SEEN, Urine WBC >100 SEEN, Ur Squamous Epith Cells 10-25 SEEN, UrineBacteria 2+, Urine Mucus 0 SEEN Imaging Radiology Impression Chest X-Ray 09/23/24 01:02 IMPRESSION: Under aerated lung bases. Possible small right effusion. Reading Location: [facility]-RE[facility]-2 Hip/Pelvis X-Ray 09/23/24 01:26 IMPRESSION: Acute left intertrochanteric femoral neck fracture. Reading Location: [facility]-2 Femur X-Ray 09/23/24 08:24 IMPRESSION: Intertrochanteric fracture of the left femur. Reading Location: [id number] 09/23/24 1515 <Electronically signed by Braxton Salas DO> Cosigner Signature (if applicable): CC: Dr. Lucio Ayoub MD~ Signed [facility] Work Phone: [phone]) 334-811707-06-2025 Consult note [facility] Medical Records Department [address] [place] [address] Consultation 09/23/24 1511 MR#: [id number] Acct: [id number] Name: JAEL HUGGINS Rep #:[id number] : 1945 79 From: Braxton Salas DO PCP: Dr. Lucio Ayoub MD Status:ADM I N Location: MT3 [id number] Assessment & Plan Assessment/Plan (1) Intertrochanteric fracture of left hip: QUALIFIERS: Encounter type: initial encounter Fracture type: closed Fracture alignment: displaced Qualified Code(s): S72.142A - Displaced intertrochanteric fracture of left femur, initial encounter for closed fracture PLAN: Plan Comminuted displaced left hip intertrochanteric femur fracture with shortening In Antunez's traction 7 pounds Thorough discussion was had with with the patient and her daughter in regards tosurgical treatment of her left femur Response alternatives of cephalomedullary fixation were discussed. We discussedthat due to the comminution there is a possibility she may need to have restricted weightbearing postoperatively, I willdetermine this intraoperativelytomorrow. She was recently living in an assisted living facility andshe [place] [facility] [place] to returning back to this. Plan for surgery 09/24/2024 left femur cephalomedullary fixation consent signed placed in the chart Antibiotics and TXA on-call to the OR. HPI Consult Data Date of Consult: 09/23/24 HPI Narrative HPI Narrative: JAEL HUGGINS, is a 79 F who presents after ground-level fall at home in the bathroom onto her leftside immediately had pain and inability ambulate but to the emergency room x-rays demonstrated a comminuted displaced and her trochanteric left femur fracture. Patient denies any other complaints or c oncerns at this time she is seen with her daughter at bedside the daughter states that she still signs her own medical consents and makes her medical decisions although recently diagnosed with frontal lobe dementia. [facility] Medical History Frontal dementia Contusion of right knee Strain of right knee Hemorrhoids Family history of breast cancer Thyroid disease Breast mass, right Abnormal mammogram of right breast Home Medications ?Medication ?Instructions ?Recorded ?Last Taken ?Type levothyroxine 75 mcg tablet 75 mcg PO DAILY THYROID Unknown History pantoprazole 40 mg tablet,delayed 40 mg PO DAILY GERD 09/23/24 Unknown History release Allergy/AdvReac Type Severity Reaction Status Date / Time No Known Allergies Allergy Verified 08/01/24 09:56 Family History Mother Breast cancer Sister Breast cancer Sister Lymphoma Surgical History History of right breast biopsy (~03/2020) History of partial hysterectomy Social History household members: none Smoking Status: Never smoker second hand exposure: No alcohol intake: never substance use type: does not use Physical Exam Const alert and no apparent distress General Appearance: cooperative and comfortable Extremity Extremity Narrative: Left lower extremity is slightly externally rotated and shortened she is in Antunez's traction. She does admit to chronic unchanged decree sensation light touch in her foot she had this before. She is able to wiggle her toes and move her ankle her compartments are soft there is no open wounds around the hip. Lab / Micro Data 09/23/24 01:20 09/23/24 01:20 Labs: Laboratory Results - last 24 hr 09/23/24 01:20: WBC 9.9, RBC 3.85 L, Hgb 11.3 L, Hct 34.6 L, MCV 89.9, MCH 29.4,MCHC 32.7, RDW Std Deviation 44.6 H, RDW Coeff of Rosita 13.5, Plt Count 265, MPV 9.7, Sodium 139, Potassium 3.7, [id number] H, Carbon Dioxide 20.2 L, Anion Gap10, BUN 14, Creatinine 0.73, Estim Creat Clear Calc 58.39, Est GFR (MDRD) Non-Af84, BUN/Creatinine Ratio 18.5, Glucose 136 H, Calcium 8.7, Magnesium 2.2, TSH 3.060 09/23/24 05:41: Blood Type AB POSITIVE, Antibody Screen NEGATIVE 09/23/24 14:00: Urine Color Yellow, Urine Clarity Sl. Cloudy, Urine pH 6.0, Ur Specific [place] 1.025, Urine Protein 30 H, Urine Glucose (UA) Normal, Urine Ketones Negative, Urine Occult Blood 50 H, Urine Nitrite Positive H, Urine Bilirubin Negative, Urine Urobilinogen Normal, Ur Leukocyte [id number] H, Urine RBC 0 SEEN, Urine WBC >100 SEEN, Ur Squamous Epith Cells 10-25 SEEN, UrineBacteria 2+, Urine Mucus 0 SEEN Imaging Radiology Impression Chest X-Ray 09/23/24 01:02 IMPRESSION: Under aerated lung bases. Possible small right effusion. Reading Location: [facility]-2 Hip/Pelvis X-Ray 09/23/24 01:26 IMPRESSION: Acute left intertrochanteric femoral neck fracture. Reading Location: [facility]-2 Femur X-Ray 09/23/24 08:24 IMPRESSION: Intertrochanteric fracture of the left femur. Reading Location: [id number] 09/23/24 1515 Cosigner Signature (if applicable): CC: Dr. Lucio Ayoub MD~ Signed [facility]07-06-2025 [facility] Medical Records Department [address] [place] [address] Consultation 09/23/24 1511 MR#: [id number] Acct: [id number] Name: JAEL HUGGINS Rep #: [id number] : 1945 79 From: Braxton Salas DO PCP: Dr. Lucio Ayoub MD Status:ADM IN [place] [id number] Assessment Plan Assessment/Plan (1) Intertrochanteric fracture of left hip: QUALIFIERS: Encounter type: initial encounter Fracture type: closed Fracture alignment: displaced Qualified Code(s): S72.142A - Displaced intertrochanteric fracture of left femur, initial encounter for closed fracture PLAN: Plan Comminuted displaced left hip intertrochanteric femur fracture with shortening In Antunez's traction 7 pounds Thorough discussion was had with with the patient and her daughter in regards to surgical treatment of her left femur Response alternatives of cephalomedullary fixation were discussed. We discussed that due to the comminution there is a possibility she may need to have restricted weightbearing postoperatively, I will determine this intraoperatively tomorrow. She was recently living in an assisted living facility and she [place] [facility] [place] to returning back to this. Plan for surgery 09/24/2024 left femur cephalomedullary fixation consent signed placed in the chart Antibiotics and TXA on-call to the OR. HPI Consult Data Date of Consult: 09/23/24 HPI Narrative HPI Narrative: JAEL HUGGINS, is a 79 F who presents after ground-level fall at home in the bathroom onto her left side immediately had pain and inability ambulate but to the emergency room x- rays demonstrated a comminuted displaced and her trochanteric left femur fracture. Patient denies any other complaints or concerns at this time she is seen with her daughter at bedside the daughter states that she still signs her own medical consents and makes her medical decisions although recently diagnosed with frontal lobe dementia. [facility] Medical History Frontal dementia Contusion of right knee Strain of right knee Hemorrhoids Family history of breast cancer Thyroid disease Breast mass, right Abnormal mammogram of right breast Home Medications ???Medication ???Instructions ???Recorded ???Last Taken ???Type levothyroxine 75 mcg tablet 75 mcg PO DAILY THYROID 03/11/20 U nknown History pantoprazole 40 mg tablet,delayed 40 mg PO DAILY GERD 09/23/24 Unkn own History release Allergy/AdvReac Type Severity Reaction Status Date / Time No Known Allergies Allergy Verified 08/01/24 09:56 Family History Mother Breast cancer Sister Breast cancer Sister Lymphoma Surgical History History of right breast biopsy ( 03/2020) History of partial hysterectomy Social History household members: none Smoking Status: Never smoker second hand exposure: No alcohol intake: never substance use type: does not use Physical Exam Const alert and no apparent distress General Appearance: cooperative and comfortable Extremity Extremity Narrative: Left lower extremity is slightly externally rotated and shortened she is in Antunez's traction. She does admit to chronic unchanged decree sensation light touch in her foot she had this before. She is able to wiggle her toes and move her ankle her compartments are soft there is no open wounds around the hip. Lab / Micro Data 09/23/24 01:20 09/23/24 01:20 Labs: Laboratory Results - last 24 hr 09/23/24 01:20: WBC 9.9, RBC 3.85 L, Hgb 11.3 L, Hct 34.6 L, MCV 89.9, MCH 29.4, MCHC 32.7, RDW Std Deviation 44.6 H, RDW Coeff of Rosita 13.5, Plt Count 265, MPV 9.7, Sodium 139, Potassium 3.7, Chloride 109 H, Carbon Dioxide 20.2 L, Anion Gap 10, BUN 14, Creatinine 0.73, Estim Creat Clear Calc 58.39, Est GFR (MDRD) Non-Af 84, BUN/Creatinine Ratio 18.5, Glucose 136 H, Calcium 8.7, Magnesium 2.2, TSH 3.060 09/23/24 05:41: Blood Type AB POSITIVE, Antibody Screen NEGATIVE 09/23/24 14:00: Urine Color Yellow, Urine Clarity Sl. Cloudy, Urine pH 6.0, Ur Specific [place] 1.025, Urine Protein 30 H, Urine Glucose (UA) Normal, Urine Ketones Negative, Urine Occult Blood 50 H, Urine Nitrite Positive H, Urine Bilirubin Negative, Urine Urobilinogen Normal, Ur Leukocyte Esterase 500 H, Urine RBC 0 SEEN, Urine WBC >100 SEEN, Ur Squamous Epith Cells 10-25 SEEN, Urine Bacteria 2+, Urine Mucus 0 SEEN Imaging Radiology Impression Chest X-Ray 09/23/24 01:02 IMPRESSION: Under aerated lung bases. Possible small right effusion. Reading Location: [facility]-2 Hip/Pelvis X-Ray 07 (more content not included)...[facility] 09-23-2024 Radiology Diagnostic study note [facility] Imaging Services [address] [place], [place] [address] Femur Min 2 Views MR#: [id number] Acct: [id number] Name: JAEL HUGGINS Rep #: [id number] : 1945 F 79 From: Greg Brown MD PCP: Dr. Lucio Ayoub MD Status: ADM I N Study:Femur Min 2 Views Date of Exam: Exam# [id number] Ordering Dr: Braxton Salas DO PROCEDURE: FEMUR MIN 2 VIEWS 09/23/2024 REASON FOR EXAM: SURGERY TECHNIQUE: FEMUR MIN 2 VIEWS COMPARISON: Left hip, 09/23/2024 at 1:26 a.m. FINDINGS: Four views of the left femur demonstrate an intertrochanteric fracture of the left femur. The remainder of the left femur is intact. The knee joint appears unremarkable. RAD/Femur Min 2 Views IMPRESSION: Intertrochanteric fracture of the left femur. Reading Location: [id number] CC: Dr. Braxton Salas DO; Dr. Lucio Ayoub MD ~ Health And Safety Instructor: Signed [facility] Work Phone: 1(772) [phone] History and physical note Author Vic Wong [facility] Note Date/Time September 23, 2024 6:41a m [facility] Medical Records Department [address] [place] [address] H&P Exam - Hospitalist 09/23/24 0242 MR#: [id number] Acct: [id number] Name: JAEL HUGGINS Rep #:[id number] : 1945 79 From: Vic Bragg DO PCP: Dr. Lucio Ayoub MD Status:ADM I N [place] [id number] HPI - General General Date of Service: 09/23/24 Chief Complaint: Left Hip Fracture after Fall at [facility]. HPI Narrative JAEL HUGGINS, is a 79 F with a past medical history of hypothyroidism; on levothyroxine, mild cognitive impairment, history of iron deficiency anemia, GERD; on pantoprazole and OA; s/p right hip fracture with subsequent ORIF by of the orthopedic service who presents to [facility] ER complaining of Left hip fracture after fall at [facility]. Ms. Huggins reports her symptoms began just prior to admission when she lost her balance and fell onto her Left hip with subsequent inability to ambulate. She denies significant headtrauma or LOC with her fall. There was no reported fever, chills, nausea, vomiting, diarrhea, constipation, chest pain, palpitations, heart racing, shortness of breath, cough, dysuria, hematuria headache or rash. In the ER she was noted to have x-ray evidence of Acute Left intertrochanteric Femoral Neck Fracture with the ER physician speaking to orthopedic surgeon on-call who recommended admission to the hospitalist service with plan for ORIF on Tuesday, August 25, 2024 with help appreciated in advance. [facility] Medical History Frontal dementia Contusion of right knee Strain of right knee Hemorrhoids Family history of breast cancer Thyroid disease Breast mass, right Abnormal mammogram of right breast Home Medications ?Medication ?Instructions ?Recorded ?Last Taken ?Type levothyroxine 75 mcg tablet 75 mcg PO DAILY THYROID Unknown History pantoprazole 40 mg tablet,delayed 40 mg PO DAILY GERD 09/23/24 Unknown History release Allergy/AdvReac Type Severity Reaction Status Date / Time No Known Allergies Allergy Verified 08/01/24 09:56 Family History Mother Breast cancer Sister Breast cancer Sister Lymphoma Surgical History History of right breast biopsy (~03/2020) History of partial hysterectomy Social History household members: none Smoking Status: Never smoker second hand exposure: No alcohol intake: never substance use type: does not use ROS ROS Narrative Review of Systems: Constitutional: Patient denies fever or chills. Eyes: Patient denies changes vision or discharge from eyes. ENT: Patient denies runny nose, sore throat or ear pain. Resp: Patient denies shortness of breath or cough. CV: Patient denies chest pain, palpitations or heart racing. GI: Patient denies abdominal pain, nausea, vomiting, diarrhea or constipation. : Patient denies dysuria, hematuria or urinary frequency. MSK: Patient admits to persistent Left hip pain since recent fall. Skin: Patient denies rash, abscess, wounds or jaundice. Psych: Patient denies symptoms well-controlled depression or anxiety. Neuro: Patient denies headache, paresthesias or focal neurologic deficits. Allergy: Patient denies lip swelling, tongue swelling or urticaria. Hematology: Patient denies easy bleeding or easy bruisability. Endocrinology: Patient denies polyuria, polydipsia, polyphagia or heat/cold intolerance. 14 point ROS otherwise negative save for positives noted above in HPI. Vital Signs Vital Signs Vital Signs: 09/23/24 00:28 09/23/24 02:28 Temperature 97.7 F L Temperature Source Oral Pulse Rate 81 93 Respiratory Rate 19 H 18 Blood Pressure 155/63 H 156/71 H Blood Pressure Mean 93 99 Pulse Ox 99 94 Oxygen Delivery Method Room Air Room Air Weight Weight: 161 lb 6.054 oz Body Mass Index (BMI) 25.9 Physical Exam Const alert, oriented x3 and average body habitus Constitutional Narrative: Mild distress noted. General Appearance: cooperative HEENT normocephalic, head/scalp atraumatic, hearing grossly normal bilaterally and moist oral mucous membranes Eyes PERRL, EOMs intact bilaterally and conjunctivae normal Neck no lymphadenopathy, supple and no JVD Resp normal respiratory effort, no retractions, no use of accessory muscles and clearto auscultation bilaterally Cardio regular rate and regular rhythm GI normal to inspection, nondistended, normoactive bowel sounds, soft to palpation,non-tender and non-distended Extremity Extremity Narrative: LLE shortened and externally rotated with no signs of vascular compromise. +2/4pulses noted throughout with intact sensation. Skin Skin Narrative: Patient has no evidence of rash, abscess, wounds or jaundice. Neuro oriented x3, CN's II-XII intact bilaterally, moves all extremities and no focal motor deficits Sensorium / Orientation: awake, alert, oriented to person, oriented to place andoriented to time Speech: speech normal Psych affect normal Results Medical Records Data Attestation: I reviewed the patient's medical records Lab / Micro Data 09/23/24 01:20 09/23/24 01:20 Labs: Laboratory Results - last 24 hr 09/23/24 01:20: WBC 9.9, RBC 3.85 L, Hgb 11.3 L, Hct 34.6 L, MCV 89.9, MCH 29.4,MCHC 32.7, RDW Std Deviation 44.6 H, RDW Coeff of Rosita 13.5, Plt Count 265, MPV 9.7, Sodium 139, Potassium 3.7, Chloride 109 H, Carbon Dioxide 20.2 L, Anion Gap10, BUN 14, Creatinine 0.73, Estim Creat Clear Calc 58.39, Est GFR (MDRD) Non-Af84, BUN/Creatinine Ratio 18.5, Glucose 136 H, Calcium 8.7 Imaging Radiology Impression Chest X-Ray 09/23/24 01:02 IMPRESSION: Under aerated lung bases. Possible small right effusion. Reading Location: [facility] Hip/Pelvis X-Ray 09/23/24 01:26 IMPRESSION: Acute left intertrochanteric femoral neck fracture. Reading Location: [place] [address] Assessment & Plan Assessment/Plan (1) Closed left hip fracture: QUALIFIERS: Encounter type: initial encounter Qualified Code(s): S72.002A - Fracture of unspecified part of neck of left femur, initial encounterfor closed fracture (2) Fall: QUALIFIERS: Encounter type: initial encounter Qualified Code(s): W19.XXXA - Unspecified fall, initial encounter (3) Mild cognitive impairment: (4) S/P right hip fracture: (5) Hypothyroidism: QUALIFIERS: Hypothyroidism type: unspecified Qualified Code(s): E03.9 - Hypothyroidism, unspecified PLAN: Plan 1. Acute Left intertrochanteric Femoral Neck Fracture - Admit to general medical floor. Patient has no absolute contraindications to medically-necessarymedium risk orthopedic surgery. Give acetaminophen as needed for [id number] (level 1- 5/10) pain or fever. Give hydromorphone 0.5 mg IV every 4 hours as needed for severe (level 6-10/10) pain. 2. Mild cognitive impairment - Stable. 3. OA; s/p Right hip fracture with subsequent ORIF by Dr. Petersen of the orthopedic service - Stable. We will follow pain regimen and scales outlined in#1. 4. Hypothyroidism; on levothyroxine - Continue levothyroxine check TSH. 5. History of iron deficiency anemia - Stable with hemoglobin of 11.3 g/dL and MCV of 89.9 fL present on admission. 6. GERD; on pantoprazole - Maintain PPI. 7. DVT prophylaxis - Start low-dose heparin 5,000 units subcu twice daily plus RLE SCD since there will be a minor delay in surgery due to holiday weekend. Total time: Approximately (but not less than) 55 minutes. Charges/Coding Visit Charges Inpatient E&M: 69595 Init Hosp L2 09/23/24 0641 <Electronically signed by Vic Marques DO> Cosigner Signature (if applicable): CC: Dr. Vic Marques DO; Dr. Lucio Ayoub MD~ Signed [facility] Work Phone: [phone] 509-504007-06-2025 History and physical note [facility] Medical Records Department [address] [place] [address] H&P Exam - Hospitalist 09/23/24 0242 MR#: [id number] Acct: [id number] Name: JAEL HUGGINS Rep #:[id number] : 1945 79 From: Vic Bragg DO PCP: Dr. Lucio Ayoub MD Status:ADM I N Location: [place] [address] HPI - General General Date of Service: 09/23/24 Chief Complaint: Left Hip Fracture after Fall at [facility]. HPI Narrative JAEL HUGGINS, is a 79 F with a past medical history of hypothyroidism; on levothyroxine, mild cognitive impairment, history of iron deficiency anemia, GERD; on pantoprazole and OA; s/p right hip fracture with subsequent ORIF by of the orthopedic service who presents to [facility] ER complaining of Left hip fracture after fall at [facility]. Ms. Huggins reports her symptoms began just prior to admission when she lost her balance and fell onto her Left hip with subsequent inability to ambulate. She denies significant headtrauma or LOC with her fall. There was no reported fever, chills, nausea, vomiting, diarrhea, constipation, chest pain, palpitations, heart racing, shortn ess of breath, cough, dysuria, hematuria headache or rash. In the ER she was noted to have x-ray evidence of Acute Left intertrochanteric Femoral Neck Fracture with the ER physician speaking to orthopedic surgeon on-call who recommended admission to the hospitalist service with plan for ORIF on Sunday, August 25, 2024 with help appreciated in advance. [facility] Medical History Frontal dementia Contusion of right knee Strain of right knee Hemorrhoids Family history of breast cancer Thyroid disease Breast mass, right Abnormal mammogram of right breast Home Medications ?Medication ?Instructions ?Recorded ?Last Taken ?Type levothyroxine 75 mcg tablet 75 mcg PO DAILY THYROID Unknown History pantoprazole 40 mg tablet,delayed 40 mg PO DAILY GERD 09/23/24 Unknown History release Allergy/AdvReac Type Severity Reaction Status Date / Time No Known Allergies Allergy Verified 08/01/24 09:56 Family History Mother Breast cancer Sister Breast cancer Sister Lymphoma Surgical History History of right breast biopsy (~03/2020) History of partial hysterectomy Social History household members: none Smoking Status: Never smoker second hand exposure: No alcohol intake: never substance use type: does not use ROS ROS Narrative Review of Systems: Constitutional: Patient denies fever or chills. Eyes: Patient denies changes vision or discharge from eyes. ENT: Patient denies runny nose, sore throat or ear pain. Resp: Patient denies shortness of breath or cough. CV: Patient denies chest pain, palpitations or heart racing. GI: Patient denies abdominal pain, nausea, vomiting, diarrhea or constipation. : Patient denies dysuria, hematuria or urinary frequency. MSK: Patient admits to persistent Left hip pain since recent fall. Skin: Patient denies rash, abscess, wounds or jaundice. Psych: Patient denies symptoms well-controlled depression or anxiety. Neuro: Patient denies headache, paresthesias or focal neurologic deficits. Allergy: Patient denies lip swelling, tongue swelling or urticaria. Hematology: Patient denies easy bleeding or easy bruisability. Endocrinology: Patient denies polyuria, polydipsia, polyphagia or heat/cold intolerance. 14 point ROS otherwise negative save for positives noted above in HPI. Vital Signs Vital Signs Vital Signs: 09/23/24 00:28 09/23/24 02:28 Temperature 97.7 F L Temperature Source Oral Pulse Rate 81 93 Respiratory Rate 19 H 18 Blood Pressure 155/63 H 156/71 H Blood Pressure Mean 93 99 Pulse Ox 99 94 Oxygen Delivery Method Room Air Room Air Weight Weight: 161 lb 6.054 oz Body Mass Index (BMI) 25.9 Physical Exam Const alert, oriented x3 and average body habitus Constitutional Narrative: Mild distress noted. General Appearance: cooperative HEENT normocephalic, head/scalp atraumatic, hearing grossly normal bilaterally and moist oral mucous membranes Eyes PERRL, EOMs intact bilaterally and conjunctivae normal Neck no lymphadenopathy, supple and no JVD Resp normal respiratory effort, no retractions, no use of accessory muscles and clearto auscultation bilaterally Cardio regular rate and regular rhythm GI normal to inspection, nondistended, normoactive bowel sounds, soft to palpation,non-tender and non-distended Extremity Extremity Narrative: LLE shortened and externally rotated with no signs of vascular compromise. +2/4pulses noted throughout with intact sensation. Skin Skin Narrative: Patient has no evidence of rash, abscess, wounds or jaundice. Neuro oriented x3, CN's II-XII intact bilaterally, moves all extremities and no focal motor deficits Sensorium / Orientation: awake, alert, oriented to person, oriented to place andoriented to time Speech: speech normal Psych affect normal Results Medical Records Data Attestation: I reviewed the patient's medical records Lab / Micro Data 09/23/24 01:20 09/23/24 01:20 Labs: Laboratory Results - last 24 hr 09/23/24 01:20: WBC 9.9, RBC 3.85 L, Hgb 11.3 L, Hct 34.6 L, MCV 89.9, MCH 29.4,MCHC 32.7, RDW Std Deviation 44.6 H, RDW Coeff of Rosita 13.5, Plt Count 265, MPV 9.7, Sodium 139, Potassium 3.7, Kdyvwkrd605 H, Carbon Dioxide 20.2 L, Anion Gap10, BUN 14, Creatinine 0.73, Estim Creat Clear Calc 58.39, Est GFR (MDRD) Non-Af84, BUN/Creatinine Ratio 18.5, Glucose 136 H, Calcium 8.7 Imaging Radiology Impression Chest X-Ray 09/23/24 01:02 IMPRESSION: Under aerated lung bases. Possible small right effusion. Reading Location: [facility] Hip/Pelvis X-Ray 09/23/24 01:26 IMPRESSION: Acute left intertrochanteric femoral neck fracture. Reading Location: [facility] Assessment & Plan Assessment/Plan (1) Closed left hip fracture: QUALIFIERS: Encounter type: initial encounter Qualified Code(s): S72.002A - Fracture of unspecifiedpart of neck of left femur, initial encounterfor closed fracture (2) Fall: QUALIFIERS: Encounter type: initial encounter Qualified Code(s): W19.XXXA - Unspecified fall, initial encounter (3) Mild cognitive impairment: (4) S/P right hip fracture: (5) Hypothyroidism: QUALIFIERS: Hypothyroidism type: unspecified Qualified Code(s): E03.9 - Hypothyroidism, unspecified PLAN: Plan 1. Acute Left intertrochanteric Femoral Neck Fracture - Admit to general medical floor. Patient hasno absolute contraindications to medically-necessarymedium risk orthopedic surgery. Give acetaminophen as needed for [id number] (level 1-5/10) pain or fever. Give hydromorphone 0.5 mg IV every 4 hours as needed for severe (level 6-10/10) pain. 2. Mild cognitive impairment - Stable. 3. OA; s/p Right hip fracture with subsequent ORIF by Dr. Petersen of the orthopedic service - Stable. We will follow pain regimen and scales outlined in#1. 4. Hypothyroidism; on levothyroxine - Continue levothyroxine check TSH. 5. History of iron deficiency anemia - Stable with hemoglobin of 11.3 g/dL and MCV of 89.9 fL present on admission. 6. GERD; on pantoprazole - Maintain PPI. 7. DVT prophylaxis - Start low-dose heparin 5,000 units subcu twice daily plus RLE SCD since there will be a minor delay in surgery due to holiday weekend. Total time: Approximately (but not less than) 55 minutes. Charges/Coding Visit Charges Inpatient E&M: 51914 Init Hosp L2 09/23/24 0641 Cosigner Signature (if applicable): CC: Dr. Vic Marques DO; Dr. Lucio Ayoub MD~ Signed [facility]07-06-2025 Discharge summary Author Tommy Huff [facility] Note Date/Time September 23, 2024 3:18a m [facility] Medical Records Department [address] [place] [address] Emergency Department Summary 09/23/24 MR#: [id number] Acct: [id number] Name: JAEL HUGGINS Rep #:[id number] : 1945 79 From: Tommy Miranda PCP: Dr. Lucio Ayoub MD Status:REG E R Location: ED HPI History of Present Illness Chief Complaint: Lower Extremity Injury [facility] Medical History Frontal dementia Contusion of right knee Strain of right knee Hemorrhoids Family history of breast cancer Thyroid disease Breast mass, right Abnormal mammogram of right breast Home Medications ?Medication ?Instructions ?Recorded ?Last Taken ?Type levothyroxine 75 mcg tablet 75 mcg PO DAILY THYROID Unknown History pantoprazole 40 mg tablet,delayed 40 mg PO DAILY GERD 09/23/24 Unknown History release Allergy/AdvReac Type Severity Reaction Status Date / Time No Known Allergies Allergy Verified 08/01/24 09:56 Family History Mother Breast cancer Sister Breast cancer Sister Lymphoma Surgical History History of right breast biopsy (~03/2020) History of partial hysterectomy Social History household members: none Smoking Status: Never smoker second hand exposure: No alcohol intake: never substance use type: does not use EXAM Physical Exam Const Vital Signs: 09/23/24 00:28 09/23/24 02:28 09/23/24 03:00 Temperature 97.7 F L 97.5 F L Temperature Source Oral Pulse Rate 81 93 92 Respiratory Rate 19 H 18 16 Blood Pressure 155/63 H 156/71 H 143/69 H Blood Pressure Mean 93 99 93 Pulse Ox 99 94 98 Oxygen Delivery Method Room Air Room Air MDM MDM MDM Narrative Medical decision making narrative: HISTORY OF PRESENT ILLNESS: Chief complaint: Fall, left hip pain 79-year-old female history of mild cognitive impairment, Alzheimer disease, right hip fracture, hypothyroidism presents for left hip pain reported fall by EMS that occurred in the bathroom. Patient states REVIEW OF SYSTEMS: Pertinent positives: Left hip pain Pertinent negatives: Head trauma, LOC PHYSICAL EXAM: Nursing triage notes reviewed, Vital signs reviewed Primary Survey Airway: Intact Breathing: Bilateral breath sounds Circulation: Palpable bilateral femorals, Palpable bilateral radial, Palpable bilateral DP and Palpable bilateral PT Disability / Spine precautions GCS Score: Eye Openin Verbal Response: 5 Motor Response: 6 Secondary Survey Constitutional: Please see MDM Head: Atraumatic, Midface stable, NO jaw malocclusion, No Cephalohematoma, and No Lacerations noted Eye: Pupils equal round and reactive to light, Extraocular muscles intact and Noperiorbital ecchymosis or stepoff, no evidence of entrapment ENT: Oropharynx clear, no lacerations, no hemotympanum, no raccoon eyes or nails sign Cervical spine / Neck: No cervical spine bony tenderness, crepitance, or stepoffdeformity Trachea midline Lungs: Clear to auscultation, No asymmetric rise and No crepitus, no flail chest Cardiac: Regular rate and rhythm and No murmurs Abdomen: Soft, Nontender and No rebound Pelvis: Pelvis stable to compression : No evidence of genital injury Back: No midline bony tenderness to thoracic/lumbar/sacral spines Neuro: At baseline, intact strength and sensation in bilateral upper and lower extremities. 2+ patellar reflexes bilaterally. Intact sensation L1-S1 dermatomal distributions. Intact 5/5 strength in hip flexion (T12-L3). Knee extension (L2- L4). Ankle dorsiflexion (L4-L5). Ankle plantar flexion (S1). Great toe extension (L5). 2+ patellar and Achilles DTRs. Extremities: Left lower extremity shortened externally rotated, it is warm well-perfused has intact pulses and sensation however Psych: Normal affect Nursing triage notes reviewed, Vital signs reviewed MEDICAL DECISION MAKING: Chief Complaint: please see HPI External records reviewed: Reviewed recent ED visit which the patient fell onto her right hip. At this time the patient's x-ray was negative Factors affecting care: As per HPI Social determinants of health: [place] resident History obtained from others: EMS Consults: Orthopedic surgery (Dr. Salas), internal medicine (Dr. Wong) [facility] Narrative: The patient was initially hemodynamically stable, afebrile and nontoxic- appearing. Primary secondary trauma service concern for left hip pathology (shortened and externally rotated). No sign of intracranial injury spinal injury, upper extremity or right lower extremity injury or chest abdomen pelvis injury I considered the following differential diagnosis: Hip fracture dislocation I obtained x-ray and basic labs as well as preop lab to further determine if thepatient was suffering from a life-threatening etiology. Initially treat the patient with IV Toradol and IV morphine. ALL IMAGES (IF OBTAINED) HAVE BEEN PERSONALLY REVIEWED AND INTERPRETED BY MYSELF. X-ray of the left hip and pelvis was read reviewed personally myself showed an obvious left hip fracture. Radiologist agreed my interpretation. Chest x-ray was read and reviewed personally by myself show no evidence of obvious pneumonia or cardiomegaly CBC leukocytosis, mild anemia, no thrombocytopenia BMP without evidence of significant electrolyte abnormalities, no anion gap, no acute kidney injury. Discussed with orthopedic on-call noted patient safe to stay here will likely operate on Tuesday. Mated to hospitalist. Discussed with Dr. Rosas who agreed to meet the patient in [facility]. The patient and/or family, caregivers express understanding. The patient and/orfamily, caregivers agrees with the plan. Shared decision making: I will have a discussion with the patient and or visitors regarding risk/benefits of further testing or admission. They will be made aware of of the risk/benefits inherent in this decision they will be given the opportunity to voice understanding. Total critical care time today provided was at least 0 minutes. This excludes separately billable procedures. Critical care time (if documented) is secondary to the patient having high probability of clinically significant/life threatening deterioration in the patient's condition which required my urgent intervention. Impression: 1. Fall 2. Left hip fracture 3. History of dementia Dispo: Admit This note was generated with [employer] dictation software. It may contain incorrectwords, spelling, and punctuation that were not noted in review of the chart prior to signing. Lab Data Labs: Laboratory Results - last 24 hr 09/23/24 01:20 WBC 9.9 RBC 3.85 L Hgb 11.3 L Hct 34.6 L MCV 89.9 MCH 29.4 MCHC 32.7 RDW Std Deviation 44.6 H RDW Coeff of Rosita 13.5 Plt Count 265 MPV 9.7 Sodium 139 Potassium 3.7 Chloride 109 H Carbon Dioxide 20.2 L Anion Gap 10 BUN 14 Creatinine 0.73 Estim Creat Clear Calc 58.39 Est GFR (MDRD) Non-Af 84 BUN/Creatinine Ratio 18.5 Glucose 136 H Calcium 8.7 Radiography Diagnostic Testing: Clinical Impression(s) from Imaging Studies Chest X-Ray 09/23/24 01:02 IMPRESSION: Under aerated lung bases. Possible small right effusion. Reading Location: [place] [address] Hip/Pelvis X-Ray 09/23/24 01:26 IMPRESSION: Acute left intertrochanteric femoral neck fracture. Reading Location: [place] [address] Discharge Plan Triage Chief Complaint: Lower Extremity Injury ED Provider: Tommy Huff Dx/Rx/DC Orders Prescriptions: No Action levothyroxine 75 mcg tablet 75 mcg PO DAILY pantoprazole 40 mg tablet,delayed release (DR/EC) 40 mg PO DAILY Primary Care Provider: Lucio Ayoub Chi Referrals: Lucio Ayoub Chi, MD [Primary Care Provider] - Print Language: Indonesian What to do if you have Problems For any increased pain, shortness of breath, bleeding, nausea or vomiting, chestpain, or any unexpected problems, contact your Primary Care Provider. Call [facility] ([phone]) or report to the closest Emergency Room. Call 911 if necessary. 09/23/24317 <Electronically signed by Tommy Huff DO> Cosigner Signature (if applicable): CC: Dr. Lucio Ayoub MD ~ Signed [facility] Work Phone: [phone]) 961-549607-06-2025 Discharge summary [facility] Medical Records Department [address] [place] [address] Emergency Department Summary 09/23/24 MR#: [id number] Acct: [id number] Name: JAEL HUGGINS Rep #:[id number] : 1945 79 From: Tommy Miranda PCP: Dr. Lucio Ayoub MD Status:REG E R Location: ED HPI History of Present Illness Chief Complaint: Lower Extremity Injury [facility] Medical History Frontal dementia Contusion of right knee Strain of right knee Hemorrhoids Family history of breast cancer Thyroid disease Breast mass, right Abnormal mammogram of right breast Home Medications ?Medication ?Instructions ?Recorded ?Last Taken ?Type levothyroxine 75 mcg tablet 75 mcg PO DAILY THYROID Unknown History pantoprazole 40 mg tablet,delayed 40 mg PO DAILY GERD 09/23/24 Unknown History release Allergy/AdvReac Type Severity Reaction Status Date / Time No Known Allergies Allergy Verified 08/01/24 09:56 Family History Mother Breast cancer Sister Breast cancer Sister Lymphoma Surgical History History of right breast biopsy (~03/2020) History of partial hysterectomy Social History household members: none Smoking Status: Never smoker second hand exposure: No alcohol intake: never substance use type: does not use EXAM Physical Exam Const Vital Signs: 09/23/24 00:28 09/23/24 02:28 09/23/24 03:00 Temperature 97.7 F L 97.5 F L Temperature Source Oral Pulse Rate 81 93 92 Respiratory Rate 19 H 18 16 Blood Pressure 155/63 H 156/71 H 143/69 H Blood Pressure Mean 93 99 93 Pulse Ox 99 94 98 Oxygen Delivery Method Room Air Room Air [facility] MDM Narrative Medical decision making narrative: HISTORY OF PRESENT ILLNESS: Chief complaint: Fall, left hip pain 79-year-old female history of mild cognitive impairment, Alzheimer disease, right hip fracture, hypothyroidism presents for left hip pain reported fall by EMS that occurred in the bathroom. Patient states REVIEW OF SYSTEMS: Pertinent positives: Left hip pain Pertinent negatives: Head trauma, LOC PHYSICAL EXAM: Nursing triage notes reviewed, Vital signs reviewed Primary Survey Airway: Intact Breathing: Bilateral breath sounds Circulation: Palpable bilateral femorals, Palpable bilateral radial, Palpable bilateral DP and Palpable bilateral PT Disability / Spine precautions GCS Score: Eye Openin Verbal Response: 5 Motor Response: 6 Secondary Survey Constitutional: Please see MDM Head: Atraumatic, Midface stable, NO jaw malocclusion, No Cephalohematoma, and No Lacerations noted Eye: Pupils equal round and reactive to light, Extraocular muscles intact and Noperiorbital ecchymosis or stepoff, no evidence of entrapment ENT: Oropharynx clear, no lacerations, no hemotympanum, no raccoon eyes or nails sign Cervical spine / Neck: No cervical spine bony tenderness, crepitance, or stepoffdeformity Trachea midline Lungs: Clear to auscultation, No asymmetric rise and No crepitus, no flail chest Cardiac: Regular rate and rhythm and No murmurs Abdomen: Soft, Nontender and No rebound Pelvis: Pelvis stable to compression : No evidence of genital injury Back: No midline bony tenderness to thoracic/lumbar/sacral spines Neuro: At baseline, intact strength and sensation in bilateral upper and lower extremities. 2+ patellar reflexes bilaterally. Intact sensation L1-S1 dermatomal distributions. Intact 5/5 strength in hip flexion (T12-L3). Knee extension (L2- L4). Ankle dorsiflexion (L4-L5). Ankle plantar flexion (S1).Great toe extension (L5). 2+ patellar and Achilles DTRs. Extremities: Left lower extremity shortened externally rotated, it is warm well- perfused has intactpulses and sensation however Psych: Normal affect Nursing triage notes reviewed, Vital signs reviewed MEDICAL DECISION MAKING: Chief Complaint: please see HPI External records reviewed: Reviewed recent ED visit which the patient fell onto her right hip. At this time the patient's x-ray was negative Factors affecting care: As per [facility] Social determinants of health: [place] resident History obtained from others: EMS Consults: Orthopedic surgery (Dr. Salas), internal medicine (Dr. Wong) MDM Narrative: The patient was initially hemodynamically stable, afebrile and nontoxic- appearing. Primary secondary trauma service concern for left hip pathology (shortened and externally rotated). No sign of intracranial injury spinal injury, upper extremity or right lower extremity injury or chest abdomen pelvis injury I considered the following differential diagnosis: Hip fracture dislocation I obtained x-ray and basic labs as well as preop lab to further determine if thepatient was suffering from a life-threatening etiology. Initially treat the patient with IV Toradol and IV morphine. ALL IMAGES (IF OBTAINED) HAVE BEEN PERSONALLY REVIEWED AND INTERPRETED BY MYSELF. X-ray of the left hip and pelvis was read reviewed personally myself showed an obvious left hip fracture. Radiologist agreed my interpretation. Chest x-ray was read and reviewed personally by myself show no evidence of obvious pneumonia or cardiomegaly CBC leukocytosis, mild anemia, no thrombocytopenia BMP without evidence of significant electrolyte abnormalities, no anion gap, no acute kidney injury. Discussed with orthopedic on-call noted patient safe to stay here will likely operate on Tuesday. Mated to hospitalist. Discussed with Dr. Rosas who agreed to meet the patient in [facility]. The patient and/or family, caregivers express understanding. The patient and/orfamily, caregivers agrees with the plan. Shared decision making: I will have a discussion with the patient and or visitors regarding risk/benefits of further testing or admission. They will be made aware of of the risk/benefits inherent in this decision they will be given the opportunity to voice understanding. Total critical care time today provided was at least 0 minutes. This excludes separately billable procedures. Critical care time (if documented) is secondary to the patient having high probability ofclinically significant/life threatening deterioration in the patient's condition which required my urgent intervention. Impression: 1. Fall 2. Left hip fracture 3. History of dementia Dispo: Admit This note was generated with [employer] [employer] dictation software. It may contain incorrectwords, spelling, and punctuation that were not noted in review of the chart prior to signing. Lab Data Labs: Laboratory Results - last 24 hr 09/23/24 01:20 WBC 9.9 RBC 3.85 L Hgb 11.3 L Hct 34.6 L MCV 89.9 MCH 29.4 MCHC 32.7 RDW Std Deviation 44.6 H RDW Coeff of Rosita 13.5 Plt Count 265 MPV 9.7 Sodium 139 Potassium 3.7 Chloride 109 H Carbon Dioxide 20.2 L Anion Gap 10 BUN 14 Creatinine 0.73 Estim Creat Clear Calc 58.39 Est GFR (MDRD) Non-Af 84 BUN/Creatinine Ratio 18.5 Glucose 136 H Calcium 8.7 Radiography Diagnostic Testing: Clinical Impression(s) from Imaging Studies Chest X-Ray 09/23/24 01:02 IMPRESSION: Under aerated lung bases. Possible small right effusion. Reading Location: [facility] Hip/Pelvis X-Ray 09/23/24 01:26 IMPRESSION: Acute left intertrochanteric femoral neck fracture. Reading Location: [facility] Discharge Plan Triage Chief Complaint: Lower Extremity Injury ED Provider: Tommy Huff Dx/Rx/DC Orders Prescriptions: No Action levothyroxine 75 mcg tablet 75 mcg PO DAILY pantoprazole 40 mg tablet,delayed release (/EC) 40 mg PO DAILY Primary Care Provider: Lucio Ayoub Chi Referrals: Lucio Ayoub Chi, MD [Primary Care Provider] - Print Language: Indonesian What to do if you have Problems For any increased pain, shortness of breath, bleeding, nausea or vomiting, chestpain, or any unexpected problems, contact your Primary Care Provider. Call [facility] ([phone]) or report tothe closest Emergency Room. Call 911 if necessary. 09/23/24 0318 Cosigner Signature (if applicable): CC: Dr. Lucio Ayoub MD ~ Signed [facility]07-06-2025 Radiology Diagnostic study note [facility] Imaging Services [address] [place] [address] HIP, UNI W/ Pelvis 2-3 Views MR#: [id number] Acct: [id number] Name: JAEL HUGGINS Rep #: [id number] : 1945 F 79 From: Fany Reina MD PCP: Dr. Lucio Ayoub MD Status: REG E R Study:HIP, UNI W/ Pelvis 2-3 Views Date of Ex am: 09/23/24 Exam# [id number] Ordering Dr: Rina Huff DO PROCEDURE: HIP, UNI W/ PELVIS 2-3 VIEWS 09/23/2024 REASON FOR EXAM: LEFT HIP PAIN TECHNIQUE: HIP, UNI W/ PELVIS 2-3 VIEWS COMPARISON: 08/22/2023 FINDINGS: Lower lumbar spine degeneration. Intact pelvic ring. Remote right femur injurystatus post repair. Acute left intertrochanteric femoral neck fracture, medial impaction and angulation. Mild displacement. Mild left hip osteoarthritis. No dislocation. RAD/HIP, UNI W/ Pelvis 2-3 Views IMPRESSION: Acute left intertrochanteric femoral neck fracture. Reading Location: [facility] CC: Dr. Lucio Ayoub MD; Dr. Tommy Huff DO ~ Health And Safety Instructor: Signed [facility]07-06-2025 Radiology Diagnostic study note [facility] Imaging Services [address] [place] [address] Chest 1 View (Portable) MR#: [id number] Acct: [id number] Name: JAEL HUGGINS Rep #: [id number] : 1945 F 79 From: Fany Reina MD PCP: Dr. Lucio Ayoub MD Status: REG E R Study:Chest 1 View (Portable) Date of Exam: 09/23/24 Exam# [id number] Ordering Dr: Rina Huff DO PROCEDURE: CHEST 1 VIEW (PORTABLE) 09/23/2024 REASON FOR EXAM: PREOP TECHNIQUE: Frontal view of the chest. COMPARISON: 01/29/2022 FINDINGS: Rotated patient. Slight under aeration at the lung bases. Possible small posterior right effusion. No consolidation, or pneumothorax. RAD/Chest 1 View (Portable) IMPRESSION: Under aerated lung bases. Possible small right effusion. Reading Location: [place] [address] CC: Dr. Lucio Ayoub MD; Dr. Tommy Huff DO ~ Health And Safety Instructor: Signed [facility]05-14-2025 Evaluation note* Diagnosis Onset Date Resolution Status Admit Date Carpal tunnel syndrome of ri ght wrist noneactive August 01, 2024 9 :50am Closed left hip fracture acute September 23, 2024 2:55am Fall acute September 23, 2024 2:55am Hypothyroidism acute September 23, 2024 2:55am Mild cognitive impairment acute September 23, 2024 2:55am S/P right hip fracture acute 2024 2:55am [facility] Work Phone: 1(566) 312-495705-14-2025 Evaluation note* Diagnosis Onset Date Resolution Status Admit Date Carpal tunnel syndrome of ri ght wrist noneactive August 01, 2024 9:50am Closed left hip fracture acute September 23, 2024 2:55am Fall acute September 23, 2024 2:55am Hypothyroidism acute September 23, 2024 2:55am Intertrochanteric fracture o f left hip acute September 23, 2024 2:55am Mild cognitive impairment acute September 23, 2024 2:55am S/P right hip fracture acute 2024 2:55[facility] Work Phone: 1(731) 481-800205-14-2025 Evaluation note* Diagnosis Onset Date Resolution Status Admit Date Carpal tunnel syndrome of ri ght wrist noneactive August 01, 2024 9:50am Closed left hip fracture inactive September 23, 2024 2:55am Fall inactive September 23, 2024 2:55am Hypothyroidism inactive September 23, 2024 2:55am Intertrochanteric fracture o f left hip inactive September 23, 2024 2:55am Mild cognitive impairment inactive September 23, 2024 2:55am S/P right hip fracture inactive Ju 2024 2:55am [employer] Work Phone: 1(291) 764-151505-14-2025 Evaluation note* Diagnosis Onset Date Resolution Status Admit Date Carpal tunnel syndrome of ri ght wrist noneactive August 01, 2024 9:50am Closed left hip fracture inactive September 23, 2024 2:55am Fall inactive September 23, 2024 2:55am Hypothyroidism inactive September 23, 2024 2:55am Intertrochanteric fracture o f left hip inactive September 23, 2024 2:55am Mild cognitive impairment inactive September 23, 2024 2:55am S/P right hip fracture inactive 2024 2:55am Orthopedic aftercare acute October 08, 2024 9:14am [employer] Work Phone: Discharge summary Author Tommy Huff [facility] Note Date/Time September 23, 2024 3:18a m [facility] Medical Records Department [address] [place] [address] Emergency Department Summary 09/23/24 MR#: [id number] Acct: [id number] Name: JAEL HUGGINS Rep #:[id number] : 1945 79 From: Tommy Miranda PCP: Dr. Lucio Ayoub MD Status:REG E R Location: ED HPI History of Present Illness Chief Complaint: Lower Extremity Injury [facility] Medical History Frontal dementia Contusion of right knee Strain of right knee Hemorrhoids Family history of breast cancer Thyroid disease Breast mass, right Abnormal mammogram of right breast Home Medications ?Medication ?Instructions ?Recorded ?Last Taken ?Type levothyroxine 75 mcg tablet 75 mcg PO DAILY THYROID Unknown History pantoprazole 40 mg tablet,delayed 40 mg PO DAILY GERD 09/23/24 Unknown History release Allergy/AdvReac Type Severity Reaction Status Date / Time No Known Allergies Allergy Verified 08/01/24 09:56 Family History Mother Breast cancer Sister Breast cancer Sister Lymphoma Surgical History History of right breast biopsy (~03/2020) History of partial hysterectomy Social History household members: none Smoking Status: Never smoker second hand exposure: No alcohol intake: never substance use type: does not use EXAM Physical Exam Const Vital Signs: 09/23/24 00:28 09/23/24 02:28 09/23/24 03:00 Temperature 97.7 F L 97.5 F L Temperature Source Oral Pulse Rate 81 93 92 Respiratory Rate 19 H 18 16 Blood Pressure 155/63 H 156/71 H 143/69 H Blood Pressure Mean 93 99 93 Pulse Ox 99 94 98 Oxygen Delivery Method Room Air Room Air MDM MDM MDM Narrative Medical decision making narrative: HISTORY OF PRESENT ILLNESS: Chief complaint: Fall, left hip pain 79-year-old female history of mild cognitive impairment, Alzheimer disease, right hip fracture, hypothyroidism presents for left hip pain reported fall by EMS that occurred in the bathroom. Patient states REVIEW OF SYSTEMS: Pertinent positives: Left hip pain Pertinent negatives: Head trauma, LOC PHYSICAL EXAM: Nursing triage notes reviewed, Vital signs reviewed Primary Survey Airway: Intact Breathing: Bilateral breath sounds Circulation: Palpable bilateral femorals, Palpable bilateral radial, Palpable bilateral DP and Palpable bilateral PT Disability / Spine precautions GCS Score: Eye Openin Verbal Response: 5 Motor Response: 6 Secondary Survey Constitutional: Please see MDM Head: Atraumatic, Midface stable, NO jaw malocclusion, No Cephalohematoma, and No Lacerations noted Eye: Pupils equal round and reactive to light, Extraocular muscles intact and Noperiorbital ecchymosis or stepoff, no evidence of entrapment ENT: Oropharynx clear, no lacerations, no hemotympanum, no raccoon eyes or nails sign Cervical spine / Neck: No cervical spine bony tenderness, crepitance, or stepoffdeformity Trachea midline Lungs: Clear to auscultation, No asymmetric rise and No crepitus, no flail chest Cardiac: Regular rate and rhythm and No murmurs Abdomen: Soft, Nontender and No rebound Pelvis: Pelvis stable to compression : No evidence of genital injury Back: No midline bony tenderness to thoracic/lumbar/sacral spines Neuro: At baseline, intact strength and sensation in bilateral upper and lower extremities. 2+ patellar reflexes bilaterally. Intact sensation L1-S1 dermatomal distributions. Intact 5/5 strength in hip flexion (T12-L3). Knee extension (L2- L4). Ankle dorsiflexion (L4-L5). Ankle plantar flexion (S1). Great toe extension (L5). 2+ patellar and Achilles DTRs. Extremities: Left lower extremity shortened externally rotated, it is warm well-perfused has intact pulses and sensation however Psych: Normal affect Nursing triage notes reviewed, Vital signs reviewed MEDICAL DECISION MAKING: Chief Complaint: please see HPI External records reviewed: Reviewed recent ED visit which the patient fell onto her right hip. At this time the patient's x-ray was negative Factors affecting care: As per HPI Social determinants of health: [place] resident History obtained from others: EMS Consults: Orthopedic surgery (Dr. Salas), internal medicine (Dr. Wong) MDM Narrative: The patient was initially hemodynamically stable, afebrile and nontoxic- appearing. Primary secondary trauma service concern for left hip pathology (shortened and externally rotated). No sign of intracranial injury spinal injury, upper extremity or right lower extremity injury or chest abdomen pelvis injury I considered the following differential diagnosis: Hip fracture dislocation I obtained x-ray and basic labs as well as preop lab to further determine if thepatient was suffering from a life-threatening etiology. Initially treat the patient with IV Toradol and IV morphine. ALL IMAGES (IF OBTAINED) HAVE BEEN PERSONALLY REVIEWED AND INTERPRETED BY MYSELF. X-ray of the left hip and pelvis was read reviewed personally myself showed an obvious left hip fracture. Radiologist agreed my interpretation. Chest x-ray was read and reviewed personally by myself show no evidence of obvious pneumonia or cardiomegaly CBC leukocytosis, mild anemia, no thrombocytopenia BMP without evidence of significant electrolyte abnormalities, no anion gap, no acute kidney injury. Discussed with orthopedic on-call noted patient safe to stay here will likely operate on Tuesday. Mated to hospitalist. Discussed with Dr. Rosas who agreed to meet the patient in [facility]. The patient and/or family, caregivers express understanding. The patient and/orfamily, caregivers agrees with the plan. Shared decision making: I will have a discussion with the patient and or visitors regarding risk/benefits of further testing or admission. They will be made aware of of the risk/benefits inherent in this decision they will be given the opportunity to voice understanding. Total critical care time today provided was at least 0 minutes. This excludes separately billable procedures. Critical care time (if documented) is secondary to the patient having high probability of clinically significant/life threatening deterioration in the patient's condition which required my urgent intervention. Impression: 1. Fall 2. Left hip fracture 3. History of dementia Dispo: Admit This note was generated with [employer] dictation software. It may contain incorrectwords, spelling, and punctuation that were not noted in review of the chart prior to signing. Lab Data Labs: Laboratory Results - last 24 hr 09/23/24 01:20 WBC 9.9 RBC 3.85 L Hgb 11.3 L Hct 34.6 L MCV 89.9 MCH 29.4 MCHC 32.7 RDW Std Deviation 44.6 H RDW Coeff of Rosita 13.5 Plt Count 265 MPV 9.7 Sodium 139 Potassium 3.7 Chloride 109 H Carbon Dioxide 20.2 L Anion Gap 10 BUN 14 Creatinine 0.73 Estim Creat Clear Calc 58.39 Est GFR (MDRD) Non-Af 84 BUN/Creatinine Ratio 18.5 Glucose 136 H Calcium 8.7 Radiography Diagnostic Testing: Clinical Impression(s) from Imaging Studies Chest X-Ray 09/23/24 01:02 IMPRESSION: Under aerated lung bases. Possible small right effusion. Reading Location: [facility] Hip/Pelvis X-Ray 09/23/24 01:26 IMPRESSION: Acute left intertrochanteric femoral neck fracture. Reading Location: [facility] Discharge Plan Triage Chief Complaint: Lower Extremity Injury ED Provider: Tommy Huff Dx/Rx/DC Orders Prescriptions: No Action levothyroxine 75 mcg tablet 75 mcg PO DAILY pantoprazole 40 mg tablet,delayed release (DR/EC) 40 mg PO DAILY Primary Care Provider: Lucio Ayoub Chi Referrals: Lucio Ayoub Chi, MD [Primary Care Provider] - Print Language: Indonesian What to do if you have Problems For any increased pain, shortness of breath, bleeding, nausea or vomiting, chestpain, or any unexpected problems, contact your Primary Care Provider. Call [facility] ([phone]) or report to the closest Emergency Room. Call 911 if necessary. 09/23/24317 <Electronically signed by Tommy Huff DO> Cosigner Signature (if applicable): CC: Dr. Lucio Ayoub MD ~ Signed [facility] Work Phone: evaluation note* Diagnosis Onset Date Resolution Status Contusion of right knee acut e Strain of right knee acute [facility] Work Phone: evaluation note* Diagnosis Onset Date Resolution Status COVID-19 acute [facility] Work Phone: Evaluation note* Diagnosis Onset Date Resolution Status Closed intertrochanteric fracture of right hip acute Fall acute Thyroid disease acute [facility] Work Phone: Evaluation note* Diagnosis Onset Date Resolution Status Closed intertrochanteric fracture of right hip resolved Fall resolved Closed right hip fracture ac rampart Debility acute Hypothyroidism acute Iron deficiency anemia acute Closed right hip fracture ac rampart S/P right hip fracture acute [facility] Work Phone: Evaluation note* Diagnosis Onset Date Resolution Status Closed intertrochanteric fracture of right hip resolved Fall resolved Closed right hip fracture ac rampart Debility acute Hypothyroidism acute Iron deficiency anemia acute Closed right hip fracture ac rampart S/P right hip fracture acute S/P right hip fracture acute [facility] Work Phone: Evaluation noteNo assessment information available [facility] Work Phone: Evaluation note* Diagnosis Onset Date Resolution Status Admit Date Carpal tunnel syndrome of right wrist noneactive August 01, 2024 9 :50am [facility] Work Phone: Reason for referral (narrative)No [facility] for [facility] Work Phone: Summary Purpose Family History [...] No December 04, 2020 3:45pm Power of Food Selector No November 3:45pm Advance Directive Response Recorded Date/ Time Advance Directives No April 12, 2016 12:35pm Living Will No September 12, 2021 4:58pm Power of Food Selector No September 12 4:58pm Advance Directive Response Recorded Date/ Time Advance Directives No April 12, 2016 11:35am Living Will No January 29 7:41am Power of Food Selector No January 29, 2022 7:41am Advance Directive Response Recorded Date/ Time Advance Directives No January 8:19am Living Will No February 08 022 8:19am Power of Food Selector No February 08, 2022 8:19am Name of Medical Power of Food Selector JOANIE HUGGINS February 01, 2022 9:34pm Advance Directive Response Recorded Date/ Time Advance Directives No January 9:19am Living Will No June 02, 2023 8:56am Power of Food Selector No June 01 8:56am Advance Directive Response Recorded Date/ Time Living Will Yes August 22, 2023 2 :26pm Power of Food Selector Yes August 22, 2023 2:26pm Advance Directives No January 8:19am Advance Directive Response Recorded Date/ Time Advance Directives No January 9:19am Advance Directive Response Recorded Date/ Time Do you have a Healthcare Power of Food Selector? No September 23, 2024 12:36am Advance Directives No January 9:19am Advance Directive Response Recorded Date/ Time Do you have a Healthcare Power of Food Selector? No September 23, 2024 3:57am Advance Directives No January 9:19am Chief Complaint and Reason for Visit Chief Complaint [facility]-C[facility] 19 REQ UIRED TESTING [facility] 19 REQUIRED TESTING RIGHT KNEE SWOLLEN, FELL ON ICE RIGHT KNEE PAIN [facility]-COVID 19 REQUIRED TESTING Reason for Visit Contusion of right k nee Strain of right knee Chief Complaint [facility] 19 REQ UIRED TESTING COVID TEST/SYMPTOMATIC UNSTEADINESS ON FEET.RX HERE RIB PAIN Reason for Visit COVID-19 Chief Complaint [facility] 19 REQ UIRED TESTING COVID TEST/SYMPTOMATIC RIB [...] of right wrist Ma y 2024 9:50am Chief Complaint Admit Date NEEDS ORDER July 16, 2024 3:0 5pm RIGHT HAND August 01, 2024 9:50a m ACUTE LEFT INTERTROCHANTERIC HIP FRACTUR E September 23, 2024 2:55am Reason for Visit Admit Date Carpal tunnel syndrome of right wrist Ma y 2024 9:50am Closed left hip fracture September 23, 2024 2:55am Fall September 23, 2024 2:55a m Hypothyroidism September 23, 2024 2:55a m Mild cognitive impairment September 23, 2024 2:55am S/P right hip fracture September 23, 2024 2: 55am Chief Complaint Admit Date NEEDS ORDER July 16, 2024 3:0 5pm RIGHT HAND August 01, 2024 9:50a m ACUTE LEFT INTERTROCHANTERIC HIP FRACTUR E September 23, 2024 2:55am ACUTE LEFT INTERTROCHANTERIC HIP FRACTUR E September 23, 2024 3:11pm ACUTE LEFT INTERTROCHANTERIC HIP FRACTUR E September 24, 2024 4:37pm ACUTE LEFT INTERTROCHANTERIC HIP FRACTUR E September 24, 2024 5:03pm ACUTE LEFT INTERTROCHANTERIC HIP FRACTUR E September 25, 2024 7:10am ACUTE LEFT INTERTROCHANTERIC HIP FRACTUR E September 25, 2024 4:24pm ACUTE LEFT INTERTROCHANTERIC HIP FRACTUR E September 26, 2024 12:14pm Reason for Visit Admit Date Carpal tunnel syndrome of right wrist Ma y 2024 9:50am Closed left hip fracture September 23, 2024 2:55am Fall September 23, 2024 2:55a m Hypothyroidism September 23, 2024 2:55a m Intertrochanteric fracture of left hip J darwin 2024 2:55am Mild cognitive impairment September 23, 2024 2:55am S/P right hip fracture September 23, 2024 2: 55am Chief Complaint Admit Date NEEDS ORDER July 16, 2024 3:0 5pm RIGHT HAND August 01, 2024 9:50a m ACUTE LEFT INTERTROCHANTERIC HIP FRACTUR E September 23, 2024 2:55am ACUTE LEFT INTERTROCHANTERIC HIP FRACTUR E September 23, 2024 3:11pm ACUTE LEFT INTERTROCHANTERIC HIP FRACTUR E September 24, 2024 4:37pm ACUTE LEFT INTERTROCHANTERIC HIP FRACTUR E September 24, 2024 5:03pm ACUTE LEFT INTERTROCHANTERIC HIP FRACTUR E September 25, 2024 7:10am ACUTE LEFT INTERTROCHANTERIC HIP FRACTUR E September 25, 2024 4:24pm ACUTE LEFT INTERTROCHANTERIC HIP FRACTUR E September 26, 2024 12:14pm LEFT HIP October 08, 2024 9:14 am Chief Complaint Admit Date NEEDS ORDER July 16, 2024 3:0 5pm RIGHT HAND August 01, 2024 9:50a m ACUTE LEFT INTERTROCHANTERIC HIP FRACTUR E September 23, 2024 2:55am ACUTE LEFT INTERTROCHANTERIC HIP FRACTUR E September 23, 2024 3:11pm ACUTE LEFT INTERTROCHANTERIC HIP FRACTUR E September 24, 2024 4:37pm ACUTE LEFT INTERTROCHANTERIC HIP FRACTUR E September 24, 2024 5:03pm ACUTE LEFT INTERTROCHANTERIC HIP FRACTUR E September 25, 2024 7:10am ACUTE LEFT INTERTROCHANTERIC HIP FRACTUR E September 25, 2024 4:24pm ACUTE LEFT INTERTROCHANTERIC HIP FRACTUR E September 26, 2024 12:14pm LAB WORK September 27, 2024 5:00 am LAB WORK October 02, 2024 5:00 am LEFT HIP October 08, 2024 9:14 am LAB WORK October 09, 2024 4:00 am LEFT HIP October 22, 2024 9:3 5am RM 2 October 22, 2024 9:5 8am Reason for Visit Admit Date Carpal tunnel syndrome of right wrist Ma y 2024 9:50am Closed left hip fracture September 23, 2024 2:55am Fall September 23, 2024 2:55a m Hypothyroidism September 23, 2024 2:55a m Intertrochanteric fracture of left hip J darwin 2024 2:55am Mild cognitive impairment September 23, 2024 2:55am S/P right hip fracture September 23, 2024 2: 55am Orthopedic aftercare October 08, 2024 9:1 4am Additional Source Comments INFORMATION SOURCE (unrecogn ized section and content) DATE CREATED AUTHOR 05/17/2020 [facility] DATE CREATED AUTHOR AUTHOR'S ORGANELDA ATION 12/29/2024 [facility] Goals (unrecognized section and content) Goals may [...] Provider Act manpreet Dr. Braxton Salas DO Attending Provider Active Team Status: Active [...] Dr. Braxton Salas DO Other Provider Active Artem Pina MD Attending Provider Active Team Status: Active Member Role Status Dates Dr. Lucio Ayoub MD Primary Care Provider Active Dr. Siddhartha Bliss DO Emergency Provider Active Dr. Rossy Saleem MD Admit Provider, Atte nding Provider, Other Provider Active Dr. Braxton Salas DO Other Provider Active Team Status: Active Member Role Status Dates Dr. Lucio Ayoub MD Primary Care Provider Active Dr. Siddhartha Bliss DO Emergency Provider Active Dr. Rossy Saleem MD Admit Provider, Other Provider Act manpreet Dr. Braxton Salas DO Other Provider Active Dr. Trina Crawford DO Attending Provider, Other Provide r Active [...] Provider Act manpreet Dr. Braxton Salas , Other Provider Active Dr. Trina Crawford DO [...] August 01, 2024 End: August 01, 2024 Team Status: Active Member Role/Relationship Status Dates Dr. Lucio Ayoub MD Primary Care Provider Active Team Status: Inactive Member Role/Relationship Status Dates Dr. uLcio Ayoub MD Primary Care Provider Active Start: July 16, 2024 End: July 16, 2024 Dr. Lucio Ayoub MD Attending Provider Active Start: July 16, 2024 End: July 16, 2024 Dr. Lucio Ayoub MD Referring Provider Active Start: July 16, 2024 End: July 16, 2024 Team Status: Inactive Member Role/Relationship Status Dates Dr. Lucio Ayoub MD Primary Care Provider Active Start: August 01, 2024 End: August 01, 2024 Dr. Lucio Ayobu MD Referring Provider Active Start: August 01, 2024 End: August 01, 2024 Dr. Braxton Salas DO Attending Provider Active Start: August 01, 2024 End: August 01, 2024 Team Status: Active Member Role/Relationship Status Dates Dr. Lucio Ayoub MD Primary Care Provider Active Start: September 23, 2024 Dr. Tommy Huff DO Emergency Provider Active Start: September 23, 2024 Dr. Vic Marques DO Admit Provider Active Start: September 23, 2024 Dr. Vic Marques DO Attending Provider Active Start: September 23, 2024 Team Status: Inactive Member Role/Relationship Status Dates Dr. Lucio Ayoub MD Primary Care Provider Active Start: September 23, 2024 End: September 26, 2024 Dr. oTmmy Huff DO Emergency Provider Active Start: September 23, 2024 End: September 26, 2024 Dr. Vic Marques DO Admit Provider Active Start: September 23, 2024 End: September 26, 2024 Dr. Vic Marques DO Other Provider Active Start: September 23, 2024 End: September 26, 2024 Dr. Braxton Borruso , DO Other Provider Active St art: September 23, 2024 End: September 26, 2024 Dr. Gage Hays , DO Attending Provider Active Start: September 23, 2024 End: September 26, 2024 Dr. Jensen Cali MD Other Provider Active Sta rt: September 23, 2024 End: September 26, 2024 Team Status: Active Member Role/Relationship Status Dates Dr. Lucio Ayoub MD Primary Care Provider Active Start: September 23, 2024 Dr. Tommy Huff , DO Emergency Provider Active Start: September 23, 2024 Dr. Vic Marques , DO Admit Provider Active Start: September 23, 2024 Dr. Vic Marques , DO Other Provider Active Start: September 23, 2024 Dr. Braxton Salas DO Attending Provider Active Start: September 23, 2024 Dr. Braxton Salas DO Other Provider Active St art: September 23, 2024 Dr. Jensen Cali MD Other Provider Active Sta rt: September 23, 2024 Team Status: Active Member Role/Relationship Status Dates Dr. Lucio Ayoub MD Primary Care Provider Active Start: September 24, 2024 Dr. Tommy Huff DO Emergency Provider Active Start: September 24, 2024 Dr. Vic Marques , DO Admit Provider Active Start: September 24, 2024 Dr. Vic Marques DO Other Provider Active Start: September 24, 2024 Dr. Braxton Salas DO Attending Provider Active Start: September 24, 2024 Dr. Braxton Salas DO Other Provider Active St art: September 24, 2024 Dr. Gage Hays , DO Other Provider Active S tart: September 24, 2024 Dr. Jensen Cali MD Other Provider Active Sta rt: September 24, 2024 Team Status: Active Member Role/Relationship Status Dates Dr. Lucio Ayoub MD Primary Care Provider Active Start: September 24, 2024 Dr. Tommy Huff DO Emergency Provider Active Start: September 24, 2024 Dr. Vic Marques , DO Admit Provider Active Start: September 24, 2024 Dr. Vic Marques DO Other Provider Active Start: September 24, 2024 Dr. Braxton Salas DO Other Provider Active St art: September 24, 2024 Dr. Gage Hays , DO Attending Provider Active Start: September 24, 2024 Dr. Gage Hays , DO Other Provider Active S tart: September 24, 2024 Dr. Jensen Cali MD Other Provider Active Sta rt: September 24, 2024 Team Status: Active Member Role/Relationship Status Dates Dr. Lucio Ayoub MD Primary Care Provider Active Start: September 25, 2024 Dr. Tommy Huff , DO Emergency Provider Active Start: September 25, 2024 Dr. Vic Marques , DO Admit Provider Active Start: September 25, 2024 Dr. Vic Marques , DO Other Provider Active Start: September 25, 2024 Dr. Braxton Salas , DO Attending Provider Active Start: September 25, 2024 Dr. Braxton Salas , DO Other Provider Active St art: September 25, 2024 Dr. Gage Hays , DO Other Provider Active S tart: September 25, 2024 Dr. Jensen Cali MD Other Provider Active Sta rt: September 25, 2024 Team Status: Active Member Role/Relationship Status Dates Dr. Lucio Ayoub MD Primary Care Provider Active Start: September 25, 2024 Dr. Tommy Huff , DO Emergency Provider Active Start: September 25, 2024 Dr. Vic Marques , DO Admit Provider Active Start: September 25, 2024 Dr. Vic Marques , DO Other Provider Active Start: September 25, 2024 Dr. Braxton Salas , DO Other Provider Active St art: September 25, 2024 Dr. Gage Hays , DO Attending Provider Active Start: September 25, 2024 Dr. Gage Hays , DO Other Provider Active S tart: September 25, 2024 Dr. Jensen Cali MD Other Provider Active Sta rt: September 25, 2024 Team Status: Active Member Role/Relationship Status Dates Dr. Lucio Ayoub MD Primary Care Provider Active Start: September 26, 2024 Dr. Tommy Huff , DO Emergency Provider Active Start: September 26, 2024 Dr. Vic Marques , DO Admit Provider Active Start: September 26, 2024 Dr. Vic Marques , DO Other Provider Active Start: September 26, 2024 Dr. Braxton Salas , DO Other Provider Active St art: September 26, 2024 Dr. Gage Hays , DO Attending Provider Active Start: September 26, 2024 Dr. Gage Hays DO Other Provider Active S tart: September 26, 2024 Dr. Jensen Cali MD Other Provider Active Sta rt: September 26, 2024 Team Status: Active Member Role/Relationship Status Dates Dr. Lucio Ayoub MD Primary Care Provider Active Start: September 27, 2024 Dr. Nenita LANDA MD Attending Provider Active Start: September 27, 2024 Team Status: Active Member Role/Relationship Status Dates Dr. Lucio Ayoub MD Primary Care Provider Active Start: October 02, 2024 Dr. Nenita LANDA MD Attending Provider Active Start: October 02, 2024 Team Status: Inactive Member Role/Relationship Status Dates Dr. Lucio Ayoub MD Primary Care Provider Active Start: October 08, 2024 End: October 08, 2024 Dr. Lucio Ayoub MD Referring Provider Active Start: October 08, 2024 End: October 08, 2024 Dr. Braxton aSlas DO Attending Provider Active Start: October 08, 2024 End: October 08, 2024 Team Status: Inactive Member Role/Relationship Status Dates Dr. Lucio Ayoub MD Primary Care Provider Active Start: September 18, 2024 Dr. Sravanthi Rodriguez MD Attending Provider Active Start: September 18, 2024 Team Status: Inactive Member Role/Relationship Status Dates Dr. Lucio Ayoub MD Primary Care Provider Active Start: September 23, 2024 End: September 26, 2024 Dr. Tommy Huff DO Emergency Provider Active Start: September 23, 2024 End: September 26, 2024 Dr. Vic Marques DO Admit Provider Active Start: September 23, 2024 End: September 26, 2024 Dr. Vic Marques DO Other Provider Active Start: September 23, 2024 End: September 26, 2024 Dr. Braxton Salas DO Other Provider Active St art: September 23, 2024 End: September 26, 2024 Dr. Gage Hays DO Attending Provider Active Start: September 23, 2024 End: September 26, 2024 Dr. eJnsen Cali MD Other Provider Active Sta rt: September 23, 2024 End: September 26, 2024 Team Status: Active Member Role/Relationship Status Dates Dr. Lucio Ayoub MD Primary Care Provider Active Start: September 23, 2024 Dr. Tommy Huff DO Emergency Provider Active Start: September 23, 2024 Dr. Vic Marques , DO Admit Provider Active Start: September 23, 2024 Dr. Vic Marques , DO Other Provider Active Start: September 23, 2024 Dr. Braxton Salas DO Attending Provider Active Start: September 23, 2024 Dr. Braxton Salas , DO Other Provider Active St art: September 23, 2024 Dr. Jensen Cali MD Other Provider Active Sta rt: September 23, 2024 Dr. Gage Hays , DO Referring Provider Active Start: September 23, 2024 Team Status: Active Member Role/Relationship Status Dates Dr. Lucio Ayoub MD Primary Care Provider Active Start: September 24, 2024 Dr. Tommy Huff DO Emergency Provider Active Start: September 24, 2024 Dr. Vic Marques DO Admit Provider Active Start: September 24, 2024 Dr. Vic Marques DO Other Provider Active Start: September 24, 2024 Dr. Braxton Salas DO Attending Provider Active Start: September 24, 2024 Dr. Braxton Salas DO Other Provider Active St art: September 24, 2024 Dr. Gage Hays , DO Other Provider Active S tart: September 24, 2024 Dr. Jensen Cali MD Other Provider Active Sta rt: September 24, 2024 Team Status: Active Member Role/Relationship Status Dates Dr. Lucio Ayoub MD Primary Care Provider Active Start: September 24, 2024 Dr. Tommy Hfuf DO Emergency Provider Active Start: September 24, 2024 Dr. Vic Marques DO Admit Provider Active Start: September 24, 2024 Dr. Vic Marques DO Other Provider Active Start: September 24, 2024 Dr. Braxton Salas DO Other Provider Active St art: September 24, 2024 Dr. Gage Hays , DO Attending Provider Active Start: September 24, 2024 Dr. Gage Hays , DO Other Provider Active S tart: September 24, 2024 Dr. Jensen Cali MD Other Provider Active Sta rt: September 24, 2024 Team Status: Active Member Role/Relationship Status Dates Dr. Lucio Ayoub MD Primary Care Provider Active Start: September 25, 2024 Dr. Tommy Refugio , DO Emergency Provider Active Start: September 25, 2024 Dr. Vic Marques , DO Admit Provider Active Start: September 25, 2024 Dr. Vic Marques , DO Other Provider Active Start: September 25, 2024 Dr. Braxton Salas , DO Attending Provider Active Start: September 25, 2024 Dr. Braxton Salas , DO Other Provider Active St art: September 25, 2024 Dr. Gage Hays , DO Other Provider Active S tart: September 25, 2024 Dr. Jensen Cali MD Other Provider Active Sta rt: September 25, 2024 Team Status: Active Member Role/Relationship Status Dates Dr. Lucio Ayoub MD Primary Care Provider Active Start: September 25, 2024 Dr. Tommy Huff , DO Emergency Provider Active Start: September 25, 2024 Dr. Vic Marques , DO Admit Provider Active Start: September 25, 2024 Dr. Vic Marques , DO Other Provider Active Start: September 25, 2024 Dr. Braxton Salas , DO Other Provider Active St art: September 25, 2024 Dr. Gage Hays , DO Attending Provider Active Start: September 25, 2024 Dr. Gage Hays , DO Other Provider Active S tart: September 25, 2024 Dr. Jensen Cali MD Other Provider Active Sta rt: September 25, 2024 Team Status: Active Member Role/Relationship Status Dates Dr. Lucio Ayoub MD Primary Care Provider Active Start: September 26, 2024 Dr. Tommy Huff , DO Emergency Provider Active Start: September 26, 2024 Dr. Vic Marques , DO Admit Provider Active Start: September 26, 2024 Dr. Vic Marques , DO Other Provider Active Start: September 26, 2024 Dr. Braxtno Salas , DO Other Provider Active St art: September 26, 2024 Dr. Gage Hays , DO Attending Provider Active Start: September 26, 2024 Dr. Gage Hays , DO Other Provider Active S tart: September 26, 2024 Dr. Jensen Cali MD Other Provider Active Sta rt: September 26, 2024 Team Status: Active Member Role/Relationship Status Dates Dr. Lucio Ayoub MD Primary Care Provider Active Start: September 27, 2024 Dr. Nenita LANDA MD Attending Provider Active Start: September 27, 2024 Team Status: Active Member Role/Relationship Status Dates Dr. Lucio Ayoub MD Primary Care Provider Active Start: October 02, 2024 Dr. Nenita LANDA MD Attending Provider Active Start: October 02, 2024 Team Status: Inactive Member Role/Relationship Status Dates Dr. Lucio Ayoub MD Primary Care Provider Active Start: October 08, 2024 End: October 08, 2024 Dr. Lucio Ayoub MD Referring Provider Active Start: October 08, 2024 End: October 08, 2024 Dr. Braxton Salas DO Attending Provider Active Start: October 08, 2024 End: October 08, 2024 Team Status: Active Member Role/Relationship Status Dates Dr. Lucio Ayoub MD Primary Care Provider Active Start: October 09, 2024 Dr. Nenita LANDA MD Attending Provider Active Start: October 09, 2024 Dr. Nenita LANDA MD Referring Provider Active Start: October 09, 2024 Team Status: Active Member Role/Relationship Status Dates Dr. Lucio Ayoub MD Primary Care Provider Active Start: October 22, 2024 Dr. Lucio Ayoub MD Referring Provider Active Start: October 22, 2024 Dr. Braxton Salas DO Attending Provider Active Start: October 22, 2024 Team Status: Inactive Member Role/Relationship Status Dates Dr. Lucio Ayoub MD Primary Care Provider Active Start: October 22, 2024 End: October 22, 2024 Dr. Alli Montgomery MD Attending Provider Active S tart: October 22, 2024 End: October 22, 2024 Team Status: Inactive Member Role/Relationship Status Dates Dr. Lucio Ayoub MD Primary Care Provider Active Start: October 22, 2024 End: October 22, 2024 Dr. Lucio Ayoub MD Referring Provider Active Start: October 22, 2024 End: October 22, 2024 Dr. Braxton Salas DO Attending Provider Active Start: October 22, 2024 End: October 22, 2024 FOR RECORDS PERTAINING TO PATIENTS WHO [...] BE BASED ON THE PRIMARY CLINICAL RECORDS. [facility]. provides no warranty or guarantee of the accuracy or completeness of information in this document.
== END ==
LOC: OLS.SW 05:00
PROVIDERS: PCP Family Medicine Geriatric Medicine; Visit Provider Internal Medicine
DX: E03.9 Hypothyroidism, unspecified (principal); Z79.899 Other long term (current) drug therapy
CPT/HCPCS: 36415; 84443